=== PATIENT | male | born 1955 | race Caucasian/White ===

== ENCOUNTER → 2017-10-13 13:53 | Outpatient (CLI) | payer OTHER, SELFPAY ==
[2017-10-13 16:42] LABS: AST(SGOT) 11 U/L (15-37); Alanine Aminotransfer ALT/SGPT 22 U/L (16-61); Albumin, Serum 3.6 g/dL (3.2-5.0); Alkaline Phosphatase 106 U/L (45-117); Anion Gap 7 (5-15); BUN 16 mg/dL (7-18); BUN/Creat Ratio 13.7 RATIO (10-20); Bilirubin, Direct 0.16 mg/dL (0.00-0.30); Calcium,Total 8.7 mg/dL (8.5-10.1); Chloride 103 mmol/L (98-107); Cholesterol 124 mg/dL (200); Creatinine, Serum 1.17 mg/dL (0.70-1.30); EST Glomerular Filtration Rate 67 mL/min (>60); Est Glom Filt Rate - Afr Amer 81 mL/min (>60); Globulin 3.3 g/dL (2.2-4.2); Glucose 101 mg/dL (70-110); High Density Lipoprotein 43 mg/dL; Protein, Total 6.9 g/dL (6.4-8.2); Sodium Level 139 mmol/L (136-145); Triglycerides 93 mg/dL; Very Low Density Lipoprotein 19 mg/dL (5-40)
== END ==
PROVIDERS: Family Provider Family Medicine; PCP Family Medicine; Visit Provider Internal Medicine Cardiovascular Disease
DX: I42.9 Cardiomyopathy, unspecified (principal); I50.9 Heart failure, unspecified; I48.92 Unspecified atrial flutter; E78.5 Hyperlipidemia, unspecified
CPT/HCPCS: 36415; 80048; 80061; 80076

== ENCOUNTER 2017-11-29 15:24 | Inpatient (IN) | payer OTHER, SELFPAY ==
[2017-11-29] VITALS (8 sets, daily range): BP systolic 119–135; BP diastolic 48–58; PULSE 59–67; RESP 17–20; TEMP 37.1–37.2; O2SAT 94–99; BMI 48.4; BMI 50.0
--- NOTE | 2017-11-29 15:36 | EKG12_ITS ---
Test Reason : Blood Pressure : / mmHG Vent. Rate : 070 BPM Atrial Rate : 070 BPM P-R Int : 144 ms QRS Dur : 166 ms QT Int : 486 ms P-R-T Axes : 000 049 089 degrees QTc Int : 524 ms Sinus rhythm with Premature atrial complexes Left bundle branch block Abnormal ECG Confirmed by HEIDI ORO ([id number]), editor managing newspaper AZRA DOBBINS ([id number]) on 12/02/2017 2:32:29 PM Referred By: CHRIS Confirmed By:HEIDI ORO
--- NOTE | 2017-11-29 15:40 | RAD_ITS ---
STUDY: X-RAY CHEST REASON FOR EXAM: Male, 62 years old. Shortness of breath. TECHNIQUE: Single AP portable view of the chest. COMPARISON: Comparison is made with prior study dated September 04, 2017. FINDINGS: EKG electrodes are seen. There is evidence of infiltration in the right lower lobe. Mild increased markings are also seen in the right upper lobe superimposed on mild degree of CHF. There is no demonstrated pleural abnormality. There is mild cardiac enlargement. Normal mediastinum and asaf. Normal visualized pulmonary arteries. There is atherosclerotic calcification of the aortic arch with tortuosity. There are diffuse degenerative changes of the visualized thoracic spine. Normal visualized ribs, clavicles, and shoulders. There is no demonstrated abnormality of the visualized soft tissue structures of the upper abdomen. RAD/Chest 1 View (Portable) IMPRESSION: Fundus suggestive of a right lower lobe infiltrate superimposed on CHF. Electronically Signed: Clement Liu MD at 15:58 EDT Tel [phone], Service support ,
--- NOTE | 2017-11-29 15:41 | ED.DCSUM_ITS ---
- ER Visit Summary Date of Service: 11/29/17 Chief Complaint: Shortness of breath History of Present Illness: The patient is a 62 M with multiple medical comorbidities including cardiomyopathy, CHF, a fibrillation, COPD on home oxygen , and history of stroke who presents for shortness of breath since last night. Patient states he has been having motor oil diarrhea for 3 days and thinks he has a GI bleed. He took himself off Eliquis last night and started Plavix he had leftover of an old prescription. He has been short of breath at rest with a desaturation as low as 88% on his home oxygen. Patient endorses fatigue and weakness. Nausea but no vomiting. He does have a history of an ulcer and hiatal hernia. Physical Examination: Vital signs: afebrile, hemodynamically stable, 94% on 3 L nasal cannula General: well nourished, well developed, in no distress Skin: warm, dry, no rash, no conjunctival pallor or pallor to the palmar creases HEENT: normocephalic and atraumatic; PERRL, EOMI, moist mucous membranes Cardiovascular: regular rate and rhythm without murmurs, symmetric 2+ peripheral edema, 2+ pulses all distal extremities Respiratory: No increased work of breathing, lungs are diminished globally, no rales, rhonchi or wheezing, limited 2/2 body habitus Abdominal: Abdomen is soft, nontender with normoactive bowel sounds, no guarding or rebound, no masses, refused rectal exam MSK: Moves all extremities, no deformities, normal strength Neuro: Awake and alert, oriented ?4. No facial droop, sensation and motor function intact and symmetric Test Results: Abnormal Lab Results 11/29/17 11/29/17 11/29/17 15:49 15:49 15:49 WBC 7.8 RBC 3.65 L Hgb 10.0 L Hct 31.6 L MCV 86.6 MCH 27.4 MCHC 31.6 L RDW 14.3 RDW Differential 43.5 Plt Count 192 MPV 10.2 Immature Gran % (Auto) 0.300 Neut % (Auto) 94.1 H Lymph % (Auto) 1.9 L [place] % (Auto) 3.7 Eos % (Auto) 0.0 Baso % (Auto) 0.0 Absolute Neuts (auto) 7.4 Absolute Lymphs (auto) 0.15 L Total Counted Not Reportable Differential Comment SCANNED Platelet Estimate ADEQUATE Hypochromasia 1+ PT INR APTT Sodium 140 Potassium 3.9 Chloride 106 Carbon Dioxide 24.0 Anion Gap 10 BUN 29 H Creatinine 1.62 H Estim Creat Clear Calc 53.56 Est GFR (MDRD) Af Amer 55 L Est GFR (MDRD) Non-Af 46 L BUN/Creatinine Ratio 17.9 Glucose 151 H Calcium 8.3 L Total Bilirubin 0.70 AST 42 H ALT 39 Alkaline Phosphatase 88 Troponin I 0.44 H B-Natriuretic Peptide 188.2 H Total Protein 6.4 Albumin 3.1 L Globulin 3.3 Albumin/Globulin Ratio 0.9 Blood Type Antibody Screen 11/29/17 11/29/17 11/29/17 15:49 15:49 21:07 WBC RBC Hgb Hct MCV MCH MCHC RDW RDW Differential Plt Count MPV Immature Gran % (Auto) Neut % (Auto) Lymph % (Auto) [place] % (Auto) Eos % (Auto) Baso % (Auto) Absolute Neuts (auto) Absolute Lymphs (auto) Total Counted Differential Comment Platelet Estimate Hypochromasia PT 16.3 H INR 1.3 APTT 40.5 H Sodium Potassium Chloride Carbon Dioxide Anion Gap BUN Creatinine Estim Creat Clear Calc Est GFR (MDRD) Af Amer Est GFR (MDRD) Non-Af BUN/Creatinine Ratio Glucose Calcium Total Bilirubin AST ALT Alkaline Phosphatase Troponin I 0.39 H B-Natriuretic Peptide Total Protein Albumin Globulin Albumin/Globulin Ratio Blood Type O POSITIVE Antibody Screen NEGATIVE 11/29/17 23:03 WBC RBC Hgb Hct MCV MCH MCHC RDW RDW Differential Plt Count MPV Immature Gran % (Auto) Neut % (Auto) Lymph % (Auto) [place] % (Auto) Eos % (Auto) Baso % (Auto) Absolute Neuts (auto) Absolute Lymphs (auto) Total Counted Differential Comment Platelet Estimate Hypochromasia PT INR APTT Sodium Potassium Chloride Carbon Dioxide Anion Gap BUN Creatinine Estim Creat Clear Calc Est GFR (MDRD) Af Amer Est GFR (MDRD) Non-Af BUN/Creatinine Ratio Glucose Calcium Total Bilirubin AST ALT Alkaline Phosphatase Troponin I 0.38 H B-Natriuretic Peptide Total Protein Albumin Globulin Albumin/Globulin Ratio Blood Type Antibody Screen Emergency Department Course and Treatment: Patient presents complaining of shortness of breath with wide differential due to multiple comorbidities. He is complaining of dark tarry stool, but shows no pallor on evaluation. He refused a rectal exam and thus Hemoccult was not obtained. Patient was maintained on his home oxygen. CBC showed no leukocytosis, and hemoglobin was 10. Renal function at baseline. Troponin was elevated at 0.44, which is above patient's baseline. EKG showed a left bundle branch block negative per Sgarbossa criteria for acute coronary syndrome. Chest x-ray was consistent with a right lower lobe pneumonia as well as CHF. Patient does not meet sepsis criteria. He was started on IV antibiotics for treatment of pneumonia. He was not given fluid boluses because of his CHF. Patient shows no exam findings concerning for contribution of acute anemia at this time. Patient will be admitted for treatment of pneumonia. Discussed with Dr. Oro regarding his elevated troponin, who will consult on this patient. Patient discussed with Dr. Morel for admission to telemetry. Treatment Plan: [] Disposition: [] Impression: Pneumonia, CHF, elevated troponin This note was generated with [employer] dictation software. It may contain incorrect words, spelling, and punctuation that were not noted in review of the chart prior to signing ED Disposition - Plan for ED Patient: Disposition: Acute Care Hospital [facility] Chief Complaint: Shortness of Breath
[2017-11-29 16:06] LABS: Absolute Lymphocyte Count 0.15 X10^3/ul (0.83-4.51); Absolute Neutrophil Count 7.4 X10^3/uL (2.0-7.7); Hematocrit 31.6 % (40-54); Lymphocyte # 0.15 X10^3/ul (4.0); Lymphocyte % 1.9 % (19-41); Mean Corp Hgb Conc 31.6 g/gl (32-36); Mean Corpuscular Hgb 27.4 pg (27.0-32.0); Mean Corpuscular Volume 86.6 fL (80-94); Mean Platelet Vol. 10.2 fl (6.2-12.0); Monocyte# 0.29 X10^3/uL; Monocyte% 3.7 % (0-10); Neutrophil # 7.35 X10^3/uL (2.7-7.7); Neutrophil % 94.1 % (47-70); Platelet Count 192 K/mm3 (150-450); RBC Distribution Width CV 14.3 % (11.6-14.6); RBC Distribution Width SD 43.5 fl (35.1-43.9); Red Blood Count 3.65 M/mm3 (4.6-6.2); White Blood Count 7.8 K/mm3 (4.4-11.0)
[2017-11-29 16:07] LABS: Differential Indicated SCAN CRITERIA MET; POSITIVE COUNT NO; POSITIVE DIFFERENTIAL YES; POSITIVE MORPHOLOGY NO
[2017-11-29 16:18] LABS: International Normalized Ratio 1.3; Prothrombin Time (Protime)PT. 16.3 SECONDS (11.7-14.9)
[2017-11-29 16:19] LABS: BUN 29 mg/dL (7-18); Creatinine, Serum 1.62 mg/dL (0.70-1.30); Estimated Creatinine Clearance 53.56 ml/min; Glucose 151 mg/dL (74-106); Partial Thromboplast Time 40.5 Seconds (24.1-36.2)
[2017-11-29 16:20] LABS: ALB/GLOB Ratio 0.9 RATIO (0.9-2.4); AST(SGOT) 42 U/L (15-37); Alanine Aminotransfer ALT/SGPT 39 U/L (16-61); Albumin, Serum 3.1 g/dL (3.2-5.0); Alkaline Phosphatase 88 U/L (45-117); Anion Gap 10 (5-15); BUN/Creat Ratio 17.9 RATIO (10-20); Calcium,Total 8.3 mg/dL (8.5-10.1); Chloride 106 mmol/L (98-107); EST Glomerular Filtration Rate 46 mL/min (>60); Est Glom Filt Rate - Afr Amer 55 mL/min (>60); Globulin 3.3 g/dL (2.2-4.2); Potassium 3.9 mmol/L (3.5-5.1); Protein, Total 6.4 g/dL (6.4-8.2); Sodium Level 140 mmol/L (136-145)
[2017-11-29 16:36] LABS: Differential Comment SCANNED; Hypochromasia 1+; Platelet Estimate ADEQUATE (ADEQ)
[2017-11-29 17:10] LABS: BNP,B-Type NATRIURETIC PEPTIDE 188.2 pg/mL (0-100)
[2017-11-29] MEDS: Ceftriaxone 1 GM/50 ML BAG IV (18:22)
--- NOTE | 2017-11-29 18:28 | CON.PCM_ITS ---
Reason for Consult Date of Consultation: 11/29/17 Reason for Consultation: Shortness of breath and chest tightness. History of Present Illness: The patient is a 62 year old M with a history of paroxysmal atrial fibrillation cardiomyopathy hypertension obstructive sleep apnea probable coronary artery disease who presents the emergency room again with chest tightness and shortness of breath. He was recently seen by me in September of this year in the hospital where he was noted to be in atrial fibrillation flutter with a rapid ventricular response rate. He underwent a JODY guided cardioversion. At that time he was also noted to have mildly abnormal cardiac enzymes and he categorically refused a cardiac catheterization. He was also noted to have an ejection fraction of approximately 40%. He tells me that he has been compliant with his medications but discontinued his factor X inhibitor because he was having diarrhea and he substituted Plavix instead because he just happened to have some around. At this particular time he does not have any chest pain he is mildly short of breath and he is a mouth breather and has put his oxygen in his mouth. [] Past Medical History Allergies/Adverse Reactions: Allergies cortisone [Cortisone] Allergy (Verified 10/13/17 12:50) Itching CASHEW Adverse Reaction (Uncoded 10/13/17 12:50) Vomiting Home Medications: Ambulatory Orders Medication Instructions Recorded Losartan Potassium 50 mg PO QHS 09/12/13 Albuterol Inhaler [Ventolin Hfa] 1 - 2 puff INHALATION Q4H PRN PRN 03/17/16 Atorvastatin Calcium [Lipitor] 40 mg PO QHS #30 tab 03/20/16 Furosemide [Lasix] 40 mg PO BID@1000,1800 #60 tab 03/20/16 Ipratropium/Albuterol Sulfate 3 ml INHALATION Q4H.RT #120 03/20/16 [Duoneb] ampul.neb Apixaban [Eliquis] 5 mg PO BID #60 tab 09/08/17 amiodarone 200 mg tablet 200 mg PO QDAY #90 tab 10/13/17 aspirin 81 mg tablet,delayed 81 mg PO QDAY #90 tab 10/13/17 release diltiazem CD 180 mg 180 mg PO ONCE #90 cap 10/13/17 capsule,extended release 24 hr umeclidinium 62.5 mcg/actuation 1 inh INHALATION QDAY #30 ea 10/18/17 blister powder for inhalation Prednisone [Prednisone] See Taper 11/29/17 Past Medical History (Chronic Problems): Chronic Problems (Last Reviewed 10/13/17 @ 13:22 by Torres Oro MD) Left bundle branch block (Chronic) CKD (chronic kidney disease), stage II (Chronic) Cardiomyopathy (Chronic) History of cardioversion (Chronic ~09/07/17) Chronic respiratory failure (Chronic) Hypertension (Chronic) Scar of back (Chronic) 5 cm recurrent infected cystic lesion scar right lower medial back Former smoker (Chronic) quit 2013 COPD (chronic obstructive pulmonary disease) (Chronic) BPH (benign prostatic hypertrophy) (Chronic) HLD (hyperlipidemia) (Chronic) History of CVA (cerebrovascular accident) (Chronic) 2012 GERD (gastroesophageal reflux disease) (Chronic) Stasis dermatitis of both legs (Chronic) with hyperpigmentation ANIBAL (obstructive sleep apnea) (Chronic) Vesico-colic fistula (Chronic) Pulmonary hypertension (Chronic) Morbid obesity with BMI of 45.0-49.9, adult (Chronic) Chronic renal failure, stage 2 (mild) (Chronic) Surgical History: - - Removal of a cyst from the low back. Ulnar relocation R elbow. Psychiatric History: No pertinent psych hx - *Family History Maternal Family History: Family History (Last Reviewed 10/13/17 @ 13:22 by Torres Oro MD) Mother Cancer Brother Sudden cardiac Father Heart disease History Items: Cancer - Lung and brain cancer Paternal Family History: Family History (Last Reviewed 10/13/17 @ 13:22 by Torres Oro MD) Mother Cancer Brother Sudden cardiac Father Heart disease History Items: Heart Disease - father of a cardiomyopathy Sibling Family History: Family History (Last Reviewed 10/13/17 @ 13:22 by Torres Oro MD) Mother Cancer Brother Sudden cardiac Father Heart disease History Items: - - brother dropped at 60 drinking a beer Smoking Status: Former smoker Alcohol: None Drugs: None Review of Systems - Review of Systems General: Denies: Fever, Night Sweats, Fatigue Cardiovascular: Reports: Chest Discomfort at Rest, Shortness of Breath. Denies : Chest Discomfort, Orthopnea, PND, Peripheral Edema, Palpitations, Lightheadedness, Dizziness, Near Syncope, Syncope Respiratory: Denies: Cough, Sputum Production, Hemoptysis Gastrointestinal: Denies: Hematemesis, Hematochezia, Melena Genitourinary: Denies: Dysuria, Hematuria Skin: Denies: Rash Subjectve: Middle-aged man Objective: Vital Signs Temp Pulse Resp BP Pulse Ox 98.8 F 65 17 135/58 H 96 11/29/17 15:33 11/29/17 18:08 11/29/17 18:08 11/29/17 18:08 11/29/17 18:08 Oxygen Flow Rate (L/min) 4 Oxygen Delivery Method Nasal Cannula Weight: 376 lb 15.847 oz Body Mass Index (BMI) 48.4 Finger Stick Blood Glucose 120 General: Awake, Alert, Oriented x 3, Obese HEENT: PERRL, EOMI, Sclera Non Icteric Neck: Supple, Good ROM, No Lymph Node Enlargement Lungs: Clear to auscultation Cardiovascular: Regular Rhythm, Normal S1, Normal S2, No Murmurs, No Rubs, No Gallops Vascular: No Carotid Bruits, Normal Femoral Pulses, Normal Radial Pulses, Normal Dorsalis Pedal Pulse, Normal Posterior Tibial Pulses Abdomen: Bowel Sounds Present, Soft, Non Tender, No HSM, No Organomegaly Extremities: No Cyanosis, No Clubbing, Bilateral Edema +2 Neurological: No Focal Motor or Sensory Deficit 11/29/17 15:49: WBC 7.8, RBC 3.65 L, Hgb 10.0 L, Hct 31.6 L, MCV 86.6, MCH 27.4 , MCHC 31.6 L, RDW 14.3, RDW Differential 43.5, Plt Count 192, MPV 10.2, Immature Gran % (Auto) 0.300, Neut % (Auto) 94.1 H, Lymph % (Auto) 1.9 L, [place] % (Auto) 3.7, Eos % (Auto) 0.0, Baso % (Auto) 0.0, Absolute Neuts (auto) 7.4, Total Counted Not Reportable 11/29/17 15:49: Sodium 140, Potassium 3.9, Chloride 106, Carbon Dioxide 24.0, Anion Gap 10, BUN 29 H, Creatinine 1.62 H, Est GFR (MDRD) Af Amer 55 L, Est GFR (MDRD) Non-Af 46 L, BUN/Creatinine Ratio 17.9, Glucose 151 H, Calcium 8.3 L, Total Bilirubin 0.70, Troponin I 0.44 H 11/29/17 15:49: B-Natriuretic Peptide 188.2 H 11/29/17 15:49: PT 16.3 H, INR 1.3, APTT 40.5 H Rhythm: EKG: Sinus rhythm with a left bundle branch block pattern. ECHO: Previous echocardiogram demonstrated an ejection fraction of 40% with global hypokinesis. Assessment/Plan 1. Abnormal cardiac enzymes. He does not have a documented history of coronary artery disease but he presents with abnormal cardiac enzymes. This time it does not appear to be any reason for demand ischemia. He probably has underlying coronary artery disease but at this time he categorically refuses any cardiac catheterization. I will therefore suggest that we admit him and cycle his cardiac enzymes. Due to his possible history of GI bleed with his hemoglobin which is lower than before I will be hesitant at this time to put him on Plavix until we have a further indication of what is going on on his GI tract. 2. History of atrial flutter He is maintaining sinus rhythm at this time on the amiodarone which will be continued. He has discontinued the factor X inhibitor because he said he was bleeding and having GI issues. 3. Cardiomyopathy He does have a history of cardiomyopathy. The etiology is likely tachycardia mediated. Recommendation at this time would be to continue with his supportive therapy 4. Congestive heart failure He likely has mild congestive heart failure probably secondary to coronary disease, hypertension, cardiomyopathy. We will continue with diuresis and him and then make a decision as to whether he prefers any invasive therapy or not. Thank you for allowing me to participate in the care of your patient. Please don't hesitate to call if any issues arise
--- NOTE | 2017-11-29 18:54 | PCM.HP.STD ---
Problem List (1) Gram-negative pneumonia Status: Acute (2) NSTEMI (non-ST elevated myocardial infarction) Status: Acute (3) Acute clinical systolic heart failure Status: Chronic (4) Atrial flutter Status: Chronic (5) Cor pulmonale Status: Chronic (6) BPH (benign prostatic hypertrophy) Status: Chronic (7) CKD (chronic kidney disease), stage II Status: Chronic (8) COPD (chronic obstructive pulmonary disease) Status: Chronic Qualifiers: COPD type: COPD with acute exacerbation Qualified Code(s): J44.1 - Chronic obstructive pulmonary disease with (acute) exacerbation (9) Cardiomyopathy Status: Chronic (10) Chronic renal failure, stage 2 (mild) Status: Chronic (11) Chronic respiratory failure Status: Chronic Qualifiers: Respiratory failure complication: hypoxia Qualified Code(s): J96.11 - Chronic respiratory failure with hypoxia (12) Former smoker Status: Chronic Comment: quit 2013 (13) GERD (gastroesophageal reflux disease) Status: Chronic (14) HLD (hyperlipidemia) Status: Chronic (15) History of CVA (cerebrovascular accident) Status: Chronic Comment: 2012 (16) History of cardioversion Status: Chronic (17) Hypertension Status: Chronic (18) Left bundle branch block Status: Chronic (19) Morbid obesity with BMI of 45.0-49.9, adult Status: Chronic (20) ANIBAL (obstructive sleep apnea) Status: Chronic (21) Pulmonary hypertension Status: Chronic (22) Stasis dermatitis of both legs Status: Chronic Comment: with hyperpigmentation History of Present Illness Date of Admission: 11/29/17 Chief Complaint: Shortness of breath The patient is a 62 year old M who has chronic respiratory failures presents with a one-day history of increasing shortness of breath. Patient was having increasing dyspnea on exertion despite his oxygen. Patient stated he put his oxygen from 4-8 L and was still having dyspnea. Patient was concerned and presented to the hospital. In the emergency room patient had chest x-ray that showed right lower lobe infiltrate. Patient received Rocephin and azithromycin in the emergency room. Patient is still having shortness of breath but feeling better at this time. Patient states that the symptoms are similar when he presented to the hospital when he was found to have a tachycardia. 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 Former smoker (Chronic) quit 2013 COPD (chronic obstructive pulmonary disease) (Chronic) BPH (benign prostatic hypertrophy) (Chronic) HLD (hyperlipidemia) (Chronic) History of CVA (cerebrovascular accident) (Chronic) 2012 GERD (gastroesophageal reflux disease) (Chronic) Stasis dermatitis of both legs (Chronic) with hyperpigmentation ANIBAL (obstructive sleep apnea) (Chronic) Vesico-colic fistula (Chronic) Pulmonary hypertension (Chronic) Cor pulmonale (Chronic) Morbid obesity with BMI of 45.0-49.9, adult (Chronic) Chronic renal failure, stage 2 (mild) (Chronic) Allergies cortisone [Cortisone] Allergy (Verified 10/13/17 12:50) Itching CASHEW Adverse Reaction (Uncoded 10/13/17 12:50) Vomiting Home Medications: Ambulatory Orders Medication Instructions Recorded Losartan Potassium 50 mg PO QHS 09/12/13 Albuterol Inhaler [Ventolin Hfa] 1 - 2 puff INHALATION Q4H PRN PRN 03/17/16 Amiodarone HCl 200 mg PO DAILY 11/29/17 Amlodipine [Norvasc] 10 mg PO DAILY 11/29/17 Aspirin [Aspir-Low] 81 mg PO DAILY 11/29/17 Atorvastatin Calcium [Lipitor] 40 mg PO QHS 11/29/17 Clopidogrel Bisulfate [Plavix] 75 mg PO DAILY 11/29/17 Diltiazem HCl [Diltiazem 24Hr ER] 180 mg PO DAILY 11/29/17 Fluticasone/Salmeterol [Advair 2 puff INHALATION DAILY 11/29/17 250-50 Diskus] Furosemide [Lasix] 40 mg PO BID@1000,1800 11/29/17 Ipratropium/Albuterol Sulfate 3 ml INHALATION Q4H.RT 11/29/17 [Duoneb] Prednisone [Prednisone] See Taper DAILY 11/29/17 Umeclidinium [place] [Incruse 1 inh INHALATION QDAY 11/29/17 Ellipta] Surgical History: - - Removal of a cyst from the low back. Ulnar relocation R elbow. Psychiatric History: No pertinent psych hx Smoking Status: Former smoker Alcohol: None Drugs: None - *Family History Maternal History Items: Cancer - Lung and brain cancer Paternal History Items: Heart Disease - father of a cardiomyopathy Sibling History Items: - - brother dropped at 60 drinking a beer Review of Systems Constitutional: Denies: Chills, Fever Eyes: Denies: Blurred vision, Double vision HEENT: Denies: Head Aches, Sinus Congestion, Sinus Drainage Cardiovascular: Reports: Chest Pain - Midsternal, Edema - Chronic Respiratory: Reports: Cough, Shortness of breath upon exertion, Sputum production Gastrointestinal: Reports: Melena - History of. Denies: Abdominal Pain, Nausea, Vomiting Genitourinary: Denies: Dysuria Musculoskeletal: Denies: Joint Pain, Joint Tenderness Skin: Reports: - - Venous stasis dermatitis. Denies: Dryness Neurological: Denies: Numbness, Tingling, Focal weakness Psychiatric: Denies: Anxiety, Depression Hematologic/ Lymphatic: Denies: Easy Bruising, Easy Bleeding, Hx of blood clot VTE Information - Inpt Only VTE Present on Admission: No VTE Pharm Prophylaxis ordered?: Yes Reason prophylaxis not ordered:: Adverse Reaction to Drug Patient Problems: Active and Suspected Problems (Last Reviewed 10/13/17 @ 13:22 by Torres Oro MD) Gram-negative pneumonia (Acute) NSTEMI (non-ST elevated myocardial infarction) (Acute) - Physical Exam General: Alert, Cooperative, No apparent distress HEENT: Atraumatic, Normocephalic Neck: No Nodes, Thyroid Normal Size and Texture Lungs: Diminished, - - Crackles in the right lower lobe Cardiovascular: Regular rate, Regular Rhythm, Normal S1, Normal S2, No murmurs Abdomen: Bowel Sounds Present, Soft, Non Tender, Non-Distended, No Hepato-splenomegaly Extremities: No Calf Tenderness, Edema Skin: No rashes, No breakdown, - - Venous stasis dermatitis of lower extremities Musculoskeletal: No Tenderness to Palpation of Joints or Extremities, No Muscle Wasting Psych/Mental Status: Normal Affect, Appropriate Vital Signs Temp Pulse Resp BP Pulse Ox 37.1 C 65 17 135/58 H 96 11/29/17 15:33 11/29/17 18:08 11/29/17 18:08 11/29/17 18:08 11/29/17 18:08 Oxygen Flow Rate (L/min) 4 Oxygen Delivery Method Nasal Cannula Weight: 171 kg Body Mass Index (BMI) 48.4 Finger Stick Blood Glucose 120 Laboratory Tests Past 24 Hrs 11/29/17 11/29/17 11/29/17 15:49 15:49 15:49 WBC 7.8 RBC 3.65 L Hgb 10.0 L Hct 31.6 L MCV 86.6 MCH 27.4 MCHC 31.6 L RDW 14.3 RDW Differential 43.5 Plt Count 192 MPV 10.2 Immature Gran % (Auto) 0.300 Neut % (Auto) 94.1 H Lymph % (Auto) 1.9 L [place] % (Auto) 3.7 Eos % (Auto) 0.0 Baso % (Auto) 0.0 Absolute Neuts (auto) 7.4 Absolute Lymphs (auto) 0.15 L Total Counted Not Reportable Differential Comment SCANNED Platelet Estimate ADEQUATE Hypochromasia 1+ PT INR APTT Sodium 140 Potassium 3.9 Chloride 106 Carbon Dioxide 24.0 Anion Gap 10 BUN 29 H Creatinine 1.62 H Estim Creat Clear Calc 53.56 Est GFR (MDRD) Af Amer 55 L Est GFR (MDRD) Non-Af 46 L BUN/Creatinine Ratio 17.9 Glucose 151 H Calcium 8.3 L Total Bilirubin 0.70 AST 42 H ALT 39 Alkaline Phosphatase 88 Troponin I 0.44 H B-Natriuretic Peptide 188.2 H Total Protein 6.4 Albumin 3.1 L Globulin 3.3 Albumin/Globulin Ratio 0.9 Blood Type Antibody Screen 11/29/17 11/29/17 15:49 15:49 WBC RBC Hgb Hct MCV MCH MCHC RDW RDW Differential Plt Count MPV Immature Gran % (Auto) Neut % (Auto) Lymph % (Auto) [place] % (Auto) Eos % (Auto) Baso % (Auto) Absolute Neuts (auto) Absolute Lymphs (auto) Total Counted Differential Comment Platelet Estimate Hypochromasia PT 16.3 H INR 1.3 APTT 40.5 H Sodium Potassium Chloride Carbon Dioxide Anion Gap BUN Creatinine Estim Creat Clear Calc Est GFR (MDRD) Af Amer Est GFR (MDRD) Non-Af BUN/Creatinine Ratio Glucose Calcium Total Bilirubin AST ALT Alkaline Phosphatase Troponin I B-Natriuretic Peptide Total Protein Albumin Globulin Albumin/Globulin Ratio Blood Type O POSITIVE Antibody Screen NEGATIVE EKG reviewed and normal sinus rhythm with PACs and a left bundle branch block. Chest x-ray personally reviewed and showed a right lower lobe infiltrate with chronic changes in the bases. Assessment/Plan Active and Suspected Problems (Last Reviewed 10/13/17 @ 13:22 by Torres Oro MD) Gram-negative pneumonia (Acute) NSTEMI (non-ST elevated myocardial infarction) (Acute) 1. Suspected gram-negative pneumonia It is not been 3 months and the patient's most recent hospitalization was treated patient for HCAP with vancomycin and Zosyn Pulmonary toilet Check urinary antigens for strep, Legionella. Check influenza, check sputum culture 2. Non-STEMI Continue with medical treatment Cardiology on consultation Cardiology recommends a left heart catheterization but the patient declines at this time. 3. Suspected acute COPD exacerbation Very diminished overall, patient will be on Solu-Medrol plus bronchodilators. 4. DVT prophylaxis: Given patient's history of GI bleed patient be on SCDs for now. Code Visit Inpatient E&M: 62429 Init Hosp L2
--- NOTE | 2017-11-29 19:04 | HP.PCM_ITS ---
Problem List (1) Gram-negative pneumonia Status: Acute (2) NSTEMI (non-ST elevated myocardial infarction) Status: Acute (3) Acute clinical systolic heart failure Status: Chronic (4) Atrial flutter Status: Chronic (5) Cor pulmonale Status: Chronic (6) BPH (benign prostatic hypertrophy) Status: Chronic (7) CKD (chronic kidney disease), stage II Status: Chronic (8) COPD (chronic obstructive pulmonary disease) Status: Chronic Qualifiers: COPD type: COPD with acute exacerbation Qualified Code(s): J44.1 - Chronic obstructive pulmonary disease with (acute) exacerbation (9) Cardiomyopathy Status: Chronic (10) Chronic renal failure, stage 2 (mild) Status: Chronic (11) Chronic respiratory failure Status: Chronic Qualifiers: Respiratory failure complication: hypoxia Qualified Code(s): J96.11 - Chronic respiratory failure with hypoxia (12) Former smoker Status: Chronic Comment: quit 2013 (13) GERD (gastroesophageal reflux disease) Status: Chronic (14) HLD (hyperlipidemia) Status: Chronic (15) History of CVA (cerebrovascular accident) Status: Chronic Comment: 2012 (16) History of cardioversion Status: Chronic (17) Hypertension Status: Chronic (18) Left bundle branch block Status: Chronic (19) Morbid obesity with BMI of 45.0-49.9, adult Status: Chronic (20) ANIBAL (obstructive sleep apnea) Status: Chronic (21) Pulmonary hypertension Status: Chronic (22) Stasis dermatitis of both legs Status: Chronic Comment: with hyperpigmentation History of Present Illness Date of Admission: 11/29/17 Chief Complaint: Shortness of breath The patient is a 62 year old M who has chronic respiratory failures presents with a one-day history of increasing shortness of breath. Patient was having increasing dyspnea on exertion despite his oxygen. Patient stated he put his oxygen from 4-8 L and was still having dyspnea. Patient was concerned and presented to the hospital. In the emergency room patient had chest x-ray that showed right lower lobe infiltrate. Patient received Rocephin and azithromycin in the emergency room. Patient is still having shortness of breath but feeling better at this time. Patient states that the symptoms are similar when he presented to the hospital when he was found to have a tachycardia. 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 Former smoker (Chronic) quit 2013 COPD (chronic obstructive pulmonary disease) (Chronic) BPH (benign prostatic hypertrophy) (Chronic) HLD (hyperlipidemia) (Chronic) History of CVA (cerebrovascular accident) (Chronic) 2012 GERD (gastroesophageal reflux disease) (Chronic) Stasis dermatitis of both legs (Chronic) with hyperpigmentation ANIBAL (obstructive sleep apnea) (Chronic) Vesico-colic fistula (Chronic) Pulmonary hypertension (Chronic) Cor pulmonale (Chronic) Morbid obesity with BMI of 45.0-49.9, adult (Chronic) Chronic renal failure, stage 2 (mild) (Chronic) Allergies cortisone [Cortisone] Allergy (Verified 10/13/17 12:50) Itching CASHEW Adverse Reaction (Uncoded 10/13/17 12:50) Vomiting Home Medications: Ambulatory Orders Medication Instructions Recorded Losartan Potassium 50 mg PO QHS 09/12/13 Albuterol Inhaler [Ventolin Hfa] 1 - 2 puff INHALATION Q4H PRN PRN 03/17/16 Amiodarone HCl 200 mg PO DAILY 11/29/17 Amlodipine [Norvasc] 10 mg PO DAILY 11/29/17 Aspirin [Aspir-Low] 81 mg PO DAILY 11/29/17 Atorvastatin Calcium [Lipitor] 40 mg PO QHS 11/29/17 Clopidogrel Bisulfate [Plavix] 75 mg PO DAILY 11/29/17 Diltiazem HCl [Diltiazem 24Hr ER] 180 mg PO DAILY 11/29/17 Fluticasone/Salmeterol [Advair 2 puff INHALATION DAILY 11/29/17 250-50 Diskus] Furosemide [Lasix] 40 mg PO BID@1000,1800 11/29/17 Ipratropium/Albuterol Sulfate 3 ml INHALATION Q4H.RT 11/29/17 [Duoneb] Prednisone [Prednisone] See Taper DAILY 11/29/17 Umeclidinium [place] [Incruse 1 inh INHALATION QDAY 11/29/17 Ellipta] Surgical History: - - Removal of a cyst from the low back. Ulnar relocation R elbow. Psychiatric History: No pertinent psych hx Smoking Status: Former smoker Alcohol: None Drugs: None - *Family History Maternal History Items: Cancer - Lung and brain cancer Paternal History Items: Heart Disease - father of a cardiomyopathy Sibling History Items: - - brother dropped at 60 drinking a beer Review of Systems Constitutional: Denies: Chills, Fever Eyes: Denies: Blurred vision, Double vision HEENT: Denies: Head Aches, Sinus Congestion, Sinus Drainage Cardiovascular: Reports: Chest Pain - Midsternal, Edema - Chronic Respiratory: Reports: Cough, Shortness of breath upon exertion, Sputum production Gastrointestinal: Reports: Melena - History of. Denies: Abdominal Pain, Nausea , Vomiting Genitourinary: Denies: Dysuria Musculoskeletal: Denies: Joint Pain, Joint Tenderness Skin: Reports: - - Venous stasis dermatitis. Denies: Dryness Neurological: Denies: Numbness, Tingling, Focal weakness Psychiatric: Denies: Anxiety, Depression Hematologic/ Lymphatic: Denies: Easy Bruising, Easy Bleeding, Hx of blood clot VTE Information - Inpt Only VTE Present on Admission: No VTE Pharm Prophylaxis ordered?: Yes Reason prophylaxis not ordered:: Adverse Reaction to Drug Patient Problems: Active and Suspected Problems (Last Reviewed 10/13/17 @ 13:22 by Torres Oro MD ) Gram-negative pneumonia (Acute) NSTEMI (non-ST elevated myocardial infarction) (Acute) - Physical Exam General: Alert, Cooperative, No apparent distress HEENT: Atraumatic, Normocephalic Neck: No Nodes, Thyroid Normal Size and Texture Lungs: Diminished, - - Crackles in the right lower lobe Cardiovascular: Regular rate, Regular Rhythm, Normal S1, Normal S2, No murmurs Abdomen: Bowel Sounds Present, Soft, Non Tender, Non-Distended, No Hepato- splenomegaly Extremities: No Calf Tenderness, Edema Skin: No rashes, No breakdown, - - Venous stasis dermatitis of lower extremities Musculoskeletal: No Tenderness to Palpation of Joints or Extremities, No Muscle Wasting Psych/Mental Status: Normal Affect, Appropriate Vital Signs Temp Pulse Resp BP Pulse Ox 37.1 C 65 17 135/58 H 96 11/29/17 15:33 11/29/17 18:08 11/29/17 18:08 11/29/17 18:08 11/29/17 18:08 Oxygen Flow Rate (L/min) 4 Oxygen Delivery Method Nasal Cannula Weight: 171 kg Body Mass Index (BMI) 48.4 Finger Stick Blood Glucose 120 Laboratory Tests Past 24 Hrs 11/29/17 11/29/17 11/29/17 15:49 15:49 15:49 WBC 7.8 RBC 3.65 L Hgb 10.0 L Hct 31.6 L MCV 86.6 MCH 27.4 MCHC 31.6 L RDW 14.3 RDW Differential 43.5 Plt Count 192 MPV 10.2 Immature Gran % (Auto) 0.300 Neut % (Auto) 94.1 H Lymph % (Auto) 1.9 L [place] % (Auto) 3.7 Eos % (Auto) 0.0 Baso % (Auto) 0.0 Absolute Neuts (auto) 7.4 Absolute Lymphs (auto) 0.15 L Total Counted Not Reportable Differential Comment SCANNED Platelet Estimate ADEQUATE Hypochromasia 1+ PT INR APTT Sodium 140 Potassium 3.9 Chloride 106 Carbon Dioxide 24.0 Anion Gap 10 BUN 29 H Creatinine 1.62 H Estim Creat Clear Calc 53.56 Est GFR (MDRD) Af Amer 55 L Est GFR (MDRD) Non-Af 46 L BUN/Creatinine Ratio 17.9 Glucose 151 H Calcium 8.3 L Total Bilirubin 0.70 AST 42 H ALT 39 Alkaline Phosphatase 88 Troponin I 0.44 H B-Natriuretic Peptide 188.2 H Total Protein 6.4 Albumin 3.1 L Globulin 3.3 Albumin/Globulin Ratio 0.9 Blood Type Antibody Screen 11/29/17 11/29/17 15:49 15:49 WBC RBC Hgb Hct MCV MCH MCHC RDW RDW Differential Plt Count MPV Immature Gran % (Auto) Neut % (Auto) Lymph % (Auto) [place] % (Auto) Eos % (Auto) Baso % (Auto) Absolute Neuts (auto) Absolute Lymphs (auto) Total Counted Differential Comment Platelet Estimate Hypochromasia PT 16.3 H INR 1.3 APTT 40.5 H Sodium Potassium Chloride Carbon Dioxide Anion Gap BUN Creatinine Estim Creat Clear Calc Est GFR (MDRD) Af Amer Est GFR (MDRD) Non-Af BUN/Creatinine Ratio Glucose Calcium Total Bilirubin AST ALT Alkaline Phosphatase Troponin I B-Natriuretic Peptide Total Protein Albumin Globulin Albumin/Globulin Ratio Blood Type O POSITIVE Antibody Screen NEGATIVE EKG reviewed and normal sinus rhythm with PACs and a left bundle branch block. Chest x-ray personally reviewed and showed a right lower lobe infiltrate with chronic changes in the bases. Assessment/Plan Active and Suspected Problems (Last Reviewed 10/13/17 @ 13:22 by Torres Oro MD ) Gram-negative pneumonia (Acute) NSTEMI (non-ST elevated myocardial infarction) (Acute) 1. Suspected gram-negative pneumonia * It is not been 3 months and the patient's most recent hospitalization was treated patient for HCAP with vancomycin and Zosyn * Pulmonary toilet * Check urinary antigens for strep, Legionella. Check influenza, check sputum culture 2. Non-STEMI * Continue with medical treatment * Cardiology on consultation * Cardiology recommends a left heart catheterization but the patient declines at this time. 3. Suspected acute COPD exacerbation * Very diminished overall, patient will be on Solu-Medrol plus bronchodilators. 4. DVT prophylaxis: Given patient's history of GI bleed patient be on SCDs for now. Code Visit Inpatient E&M: 77651 Init Hosp L2
[2017-11-29] MEDS: Ipratropium/Albuterol Sulfate 3 ML AMPUL.NEB INHALATION (20:20)
[2017-11-29] MEDS: Losartan Potassium 50 MG Tablet PO (21:15)
[2017-11-29] MEDS: Atorvastatin Calcium 40 MG Tablet PO (21:15)
[2017-11-29] MEDS: guaiFENesin 600 MG Tablet 1200 MG PO (21:15)
[2017-11-29] MEDS: Piperacil/Tazobactam 3.375 GM/50 ML ML IV (21:16)
[2017-11-30] VITALS (18 sets, daily range): BP systolic 130–163; BP diastolic 64–81; PULSE 59–79; RESP 17–21; TEMP 36.8–37.3; O2SAT 94–98
[2017-11-30] MEDS: Ipratropium/Albuterol Sulfate 3 ML AMPUL.NEB INHALATION ×6 (00:45→22:52)
[2017-11-30] MEDS: Piperacil/Tazobactam 3.375 GM/50 ML ML IV ×3 (05:59→22:29)
[2017-11-30 06:02] LABS: Hematocrit 31.1 % (40-54); Hemoglobin 9.6 g/dl (13.0-16.5); Mean Corp Hgb Conc 30.9 g/gl (32-36); Mean Corpuscular Hgb 26.9 pg (27.0-32.0); Mean Corpuscular Volume 87.1 fL (80-94); Mean Platelet Vol. 10.9 fl (6.2-12.0); Platelet Count 200 K/mm3 (150-450); RBC Distribution Width CV 14.2 % (11.6-14.6); RBC Distribution Width SD 44.1 fl (35.1-43.9); Red Blood Count 3.57 M/mm3 (4.6-6.2)
[2017-11-30 06:06] LABS: Scan Indicated on CBC? Y/N NO
[2017-11-30 06:09] LABS: Anion Gap 7 (5-15); BUN 31 mg/dL (7-18); BUN/Creat Ratio 20.8 RATIO (10-20); Calcium,Total 8.6 mg/dL (8.5-10.1); Chloride 105 mmol/L (98-107); Creatinine, Serum 1.49 mg/dL (0.70-1.30); EST Glomerular Filtration Rate 50 mL/min (>60); Est Glom Filt Rate - Afr Amer 61 mL/min (>60); Estimated Creatinine Clearance 58.23 ml/min; Glucose 174 mg/dL (74-106); Potassium 4.6 mmol/L (3.5-5.1); Sodium Level 140 mmol/L (136-145)
--- NOTE | 2017-11-30 07:44 | PN.CARD_ITS ---
Subjectve: Patient seen and evaluated and appears to be stable. Has not had any chest pain. Objective: Vital Signs Temp Pulse Resp BP Pulse Ox 99.1 F 70 18 163/79 H 98 11/30/17 04:44 11/30/17 07:05 11/30/17 07:05 11/30/17 04:44 11/30/17 07:31 Oxygen Flow Rate (L/min) 4 Oxygen Delivery Method Nasal Cannula Weight: 389 lb 8.909 oz Body Mass Index (BMI) 50.0 Intake and Output for Last 24 Hours 11/28/17 11/29/17 11/30/17 23:59 23:59 23:59 Intake Total 1155 / 1155 Output Total 625 / 625 Balance 530 / 530 General: Awake, Alert, Oriented x 3, Obese HEENT: PERRL, EOMI, Sclera Non Icteric Neck: Supple, Good ROM, No Lymph Node Enlargement Lungs: Clear to auscultation Cardiovascular: Regular Rhythm, Normal S1, Normal S2, No Murmurs, No Rubs, No Gallops Vascular: No Carotid Bruits, Normal Femoral Pulses, Normal Radial Pulses, Normal Dorsalis Pedal Pulse, Normal Posterior Tibial Pulses Abdomen: Bowel Sounds Present, Soft, Non Tender, No HSM, No Organomegaly Extremities: No Cyanosis, No Clubbing, No edema Neurological: No Focal Motor or Sensory Deficit 11/29/17 21:07: Troponin I 0.39 H 11/29/17 23:03: Troponin I 0.38 H 11/30/17 05:30: WBC 7.0, RBC 3.57 L, Hgb 9.6 L, Hct 31.1 L, MCV 87.1, MCH 26.9 L , MCHC 30.9 L, RDW 14.2, RDW Differential 44.1 H, Plt Count 200, MPV 10.9 11/30/17 05:30: Sodium 140, Potassium 4.6, Chloride 105, Carbon Dioxide 28.0, Anion Gap 7, BUN 31 H, Creatinine 1.49 H, Est GFR (MDRD) Af Amer 61, Est GFR ( MDRD) Non-Af 50 L, BUN/Creatinine Ratio 20.8 H, Glucose 174 H, Calcium 8.6 Rhythm: EKG: ECHO: Stress Test: Cardiac Cath: PCI: CT Surgery: Holter monitor: EPS: PPM: CXR: Chest CT Scan: Medical Necessity - Tobacco Use Smoking Status: Former smoker Assessment/Plan 1. Abnormal cardiac enzymes. He does not have a documented history of coronary artery disease but he presents with abnormal cardiac enzymes. This time it does not appear to be any reason for demand ischemia. He probably has underlying coronary artery disease but at this time he categorically refuses any cardiac catheterization. Due to his possible history of GI bleed with his hemoglobin which is lower than before I will be hesitant at this time to put him on Plavix until we have a further indication of what is going on on his GI tract. Upon further discussion this morning. He still does not want to undergo any cardiac catheterization. We will continue him on his current medications with holding the Plavix at this time. 2. History of atrial flutter He is maintaining sinus rhythm at this time on the amiodarone which will be continued. He has discontinued the factor X inhibitor because he said he was bleeding and having GI issues. 3. Cardiomyopathy He does have a history of cardiomyopathy. The etiology is likely tachycardia mediated. Recommendation at this time would be to continue with his supportive therapy 4. Congestive heart failure He likely has mild congestive heart failure probably secondary to coronary disease, hypertension, cardiomyopathy. We will continue with diuresis and him and then make a decision as to whether he prefers any invasive therapy or not. Thank you for allowing me to participate in the care of your patient. Please don't hesitate to call if any issues arise
[2017-11-30] MEDS: dilTIAZem CD 180 MG Capsule PO (08:49)
[2017-11-30] MEDS: Aspirin E.C. 81 MG Tablet PO (08:50)
[2017-11-30] MEDS: Amiodarone 200 MG Tablet PO (08:50)
[2017-11-30] MEDS: Furosemide 40 MG Tablet PO (08:50)
[2017-11-30] MEDS: amLODIPine 10 MG Tablet PO (08:51)
[2017-11-30] MEDS: guaiFENesin 600 MG Tablet 1200 MG PO ×2 (08:51→22:30)
--- NOTE | 2017-11-30 10:36 | CASEMGMT ---
This RN CM to room to complete CM assessment and pt is currently getting breathing treatment at this time. Will attempt again later. SStsandy RN CM
[2017-11-30] MEDS: Furosemide 40 MG/4 ML Vial IV ×2 (11:24→17:44)
[2017-11-30] MEDS: Pantoprazole Sodium 40 MG Tablet PO (11:24)
--- NOTE | 2017-11-30 11:47 | PN_ITS ---
Patient Problems: Active and Suspected Problems (Last Reviewed 10/13/17 @ 13:22 by Torres Oro MD ) Gram-negative pneumonia (Acute) NSTEMI (non-ST elevated myocardial infarction) (Acute) Subjective: Patient seen and examined. Denies cough, fever, chills. Denies chest pain. Continues to complain of shortness of breath. Cardiology recommended cardiac catheterization to patient and he declined. States he is going to further think about it. Patient states his black stools are coming from his hernia. He does not want any further workup for anemia. Denies other complaints. - Physical Exam General: Alert, Oriented x3, Cooperative, No apparent distress HEENT: Atraumatic, PERRLA, EOMI, Normocephalic Neck: Supple, No JVD, Negative Carotid Bruits Lungs: Clear to auscultation, Diminished Cardiovascular: Regular rate, Regular Rhythm, Normal S1, Normal S2, No murmurs Abdomen: Bowel Sounds Present, Soft, Non Tender, Non-Distended Extremities: No clubbing, No cyanosis, No edema, Capillary Refill Less than 3 Seconds Skin: No rashes, No breakdown Musculoskeletal: No Tenderness to Palpation of Joints or Extremities Neurological: Cranial nerves II-XII grossly intact, Neuro grossly intact Psych/Mental Status: Normal Affect, Appropriate Vital Signs Temp Pulse Resp BP Pulse Ox 99.1 F 59 L 21 H 163/79 H 98 11/30/17 04:44 11/30/17 10:45 11/30/17 10:45 11/30/17 04:44 11/30/17 07:31 Oxygen Flow Rate (L/min) 4 Oxygen Delivery Method Nasal Cannula Weight: 176.7 kg Body Mass Index (BMI) 50.0 Intake and Output for Last 24 Hours 11/28/17 11/29/17 11/30/17 23:59 23:59 23:59 Intake Total 1155 / 1155 Output Total 625 / 625 Balance 530 / 530 Microbiology Past 72 Hours 11/29/17 21:10 Streptococcus pneumoniae Antigen (M - Final Urine, Clean Catch 11/29/17 21:10 Legionella Antigen - Final Urine, Clean Catch 11/29/17 20:30 Influenza Types A,B Direct FA (SIGRID) - Final Mucosa - Nasopharyngeal Laboratory Tests Past 24 Hrs 11/29/17 11/29/17 11/30/17 21:07 23:03 05:30 WBC 7.0 RBC 3.57 L Hgb 9.6 L Hct 31.1 L MCV 87.1 MCH 26.9 L MCHC 30.9 L RDW 14.2 RDW Differential 44.1 H Plt Count 200 MPV 10.9 Sodium Potassium Chloride Carbon Dioxide Anion Gap BUN Creatinine Estim Creat Clear Calc Est GFR (MDRD) Af Amer Est GFR (MDRD) Non-Af BUN/Creatinine Ratio Glucose Calcium Troponin I 0.39 H 0.38 H 11/30/17 05:30 WBC RBC Hgb Hct MCV MCH MCHC RDW RDW Differential Plt Count MPV Sodium 140 Potassium 4.6 Chloride 105 Carbon Dioxide 28.0 Anion Gap 7 BUN 31 H Creatinine 1.49 H Estim Creat Clear Calc 58.23 Est GFR (MDRD) Af Amer 61 Est GFR (MDRD) Non-Af 50 L BUN/Creatinine Ratio 20.8 H Glucose 174 H Calcium 8.6 Troponin I Medical Necessity - Tobacco Use Smoking Status: Former smoker Assessment/Plan Active and Suspected Problems (Last Reviewed 10/13/17 @ 13:22 by Torres Oro MD ) Gram-negative pneumonia (Acute) NSTEMI (non-ST elevated myocardial infarction) (Acute) The patient is a 61 year old M admitted 11/29/17 due to shortness of breath. His medical history includes chronic renal failure stage II, morbid obesity, pulmonary hypertension, vesicocolic fistula, ANIBAL, GERD, history of CVA, hyperlipidemia, BPH, COPD, hypertension, stasis dermatitis of both legs history of atrial flutter. 1. Shortness of breath/right lower lobe infiltrate- suspected secondary to mild acute on chronic systolic CHF versus possible community-acquired pneumonia- doubtful of pneumonia. Patient denies cough. Afebrile. No leukocytosis. Urine negative for strep and Legionella. Chest x-ray on admission showed right lower lobe infiltrate superimposed on CHF. BNP 188. Lungs clear, diminished on examination. Echocardiogram August 2017 showed an EF of 40%, septal motion consistent with IVCD. Continue home losartan regimen. Continue IV Zosyn empirically. 1500 fluid restriction. Strict I&O. Begin IV Lasix 40 mg twice daily. Continue supplemental oxygen to maintain O2 at or above 90%. Patient chronically wears 4 L nasal cannula continuously. Repeat chest x-ray. 2. NSTEMI-patient has history of indeterminate troponins during previous admission. No history of CAD. Cardiology consulted. Patient refusing cardiac catheterization. Hold Plavix given anemia. Patient states his father of cardiomyopathy, brother at age 60 suddenly of unknown cause. Patient has significant risk factors for CAD including morbid obesity, extensive smoking history, hyperlipidemia, hypertension and borderline diabetes. Patient is going to further consider cardiac catheterization. Will reassess tomorrow. 3. Chronic hypoxic respiratory failure-patient chronically wears 3-4 L nasal cannula continuously at home. Oxygen 98% on 4 L nasal cannula. Titrate oxygen to maintain O2 greater than 90%. 4. Acute on chronic anemia-baseline hemoglobin around 12. Hemoglobin on admission 10.0. Patient states he has black stools. Does not want any further workup for anemia. He states his bleeding is coming from his hernia. Begin PPI. Complete iron studies. Monitor CBC. 5. Chronic COPD-no acute exacerbation. Patient is on baseline oxygen. Lungs clear, diminished. Patient follows with Dr. Tello as outpatient. Continue albuterol and DuoNeb aerosols. No need for steroids at this time. 6. History of atrial flutter-status post JODY/cardioversion August 2017. No further known episodes of atrial flutter since that time. Continue amiodarone, Cardizem. Patient was previously discharged on Eliquis which she states had to be discontinued due to ulcer. 7. Chronic kidney disease stage II-stable, monitor BMP. 8. History of CVA-patient reports residual left-sided numbness/tingling. No focal deficits. Continue aspirin, statin, Plavix. 9. Hyperlipidemia-continue statin. 10. Obstructive sleep apnea-patient had a polysomnogram 05/29 in which a BIPAP was recommended. Patient is noncompliant. Patient follows with Dr. Tello as outpatient. 11. Hypertension-stable, continue current regimen. 12. Morbid obesity-BMI 50. Encouraged lifestyle and diet modifications. 13. Elevated glucose-Patient has a previous documented history of type 2 diabetes mellitus. Patient demands that he is NOT a diabetic. Hemoglobin A1c 5.8% 11/25/2016. Prior to that he did have a hemoglobin A1c of 6.7%. Will defer further workup to primary care physician. Elevated glucose possibly secondary to steroid use. DVT prophylaxis-SCDs, pharmacologic prophylaxis on hold given anemia. This patient was seen by LINWOOD Patel under the supervision of Dr. Anne.
--- NOTE | 2017-11-30 11:48 | CASEMGMT ---
Face to Face with patient for initial transition planning/care coordination assessment. [place] introduced self and role at [facility], pt voices understanding and consents to assessment at this time. Pt sitting up in bed in no distress at this time. Pt A/O x4 at this time and answers all questions appropriately at this time. Care providers, pharmacy, and demographics verified. See attached link. Pt voices no further concerns/needs at this time. Pt states has had a recent falling out with his sister and does not want any of her contact info on the chart. Pt states would like to keep HPOA, Odalys Sheffield, sis in law's number on chart but would only like it called if he is 'unresponsive'. Registration updated at this time. Advised pt to ask for CM if any further questions/concerns/needs arise, voices understanding. PLAN: [place]
--- NOTE | 2017-11-30 13:13 | CPS ---
PATIENT DOES NOT WANT A PEP DEVICE.
[2017-11-30 13:27] LABS: Ferritin 119 ng/mL (26-388); Iron 23 ug/dL (65-175); Iron Binding Capacity,Total 247 ug/dL (250-450); PERCENT IRON SATURATION 9.3 % (15.0-55.0)
[2017-11-30 13:30] LABS: Vitamin B12 520 pg/mL (211-911)
--- NOTE | 2017-11-30 14:00 | RAD_ITS ---
STUDY: X-RAY CHEST REASON FOR EXAM: Male, 62 years old. Shortness of breath/dyspnea. TECHNIQUE: Single AP portable view of the chest. COMPARISON: Comparison is made with prior study dated November 29, 2017. FINDINGS: EKG electrodes are seen. There is evidence of a stable CHF with right lower lobe infiltrate. There has been essentially no change. There is no demonstrated pleural abnormality. There is mild cardiac enlargement. Normal mediastinum and asaf. Normal visualized pulmonary arteries. Normal visualized aortic arch and descending thoracic aorta. There are diffuse degenerative changes of the visualized thoracic spine. Normal visualized ribs, clavicles, and shoulders. There is no demonstrated abnormality of the visualized soft tissue structures of the upper abdomen. RAD/Chest 1 View (Portable) IMPRESSION: Stable examination. Electronically Signed: Clement Liu MD at 14:53 EDT Tel [phone], Service support ,
[2017-11-30] MEDS: 0.9% NaCl Peripheral Flush Adult/Peds IV (17:45)
[2017-11-30] MEDS: Atorvastatin Calcium 40 MG Tablet PO (22:30)
[2017-11-30] MEDS: Losartan Potassium 50 MG Tablet PO (22:30)
[2017-12-01] VITALS (7 sets, daily range): BP systolic 139–149; BP diastolic 63; PULSE 60–74; RESP 18–22; TEMP 36.7–37.4; O2SAT 97–99
[2017-12-01] MEDS: Ipratropium/Albuterol Sulfate 3 ML AMPUL.NEB INHALATION ×2 (03:17→11:23)
[2017-12-01] MEDS: Piperacil/Tazobactam 3.375 GM/50 ML ML IV (06:28)
[2017-12-01 06:29] LABS: Hematocrit 32.3 % (40-54); Hemoglobin 10.1 g/dl (13.0-16.5); Mean Corp Hgb Conc 31.3 g/gl (32-36); Mean Corpuscular Hgb 27.2 pg (27.0-32.0); Mean Corpuscular Volume 87.1 fL (80-94); Mean Platelet Vol. 10.4 fl (6.2-12.0); Platelet Count 239 K/mm3 (150-450); RBC Distribution Width CV 14.2 % (11.6-14.6); RBC Distribution Width SD 44.2 fl (35.1-43.9); Red Blood Count 3.71 M/mm3 (4.6-6.2); White Blood Count 10.5 K/mm3 (4.4-11.0)
[2017-12-01 06:38] LABS: Scan Indicated on CBC? Y/N NO
[2017-12-01 06:58] LABS: Anion Gap 7 (5-15); BUN 32 mg/dL (7-18); BUN/Creat Ratio 20.6 RATIO (10-20); Calcium,Total 8.3 mg/dL (8.5-10.1); Chloride 108 mmol/L (98-107); Creatinine, Serum 1.55 mg/dL (0.70-1.30); EST Glomerular Filtration Rate 48 mL/min (>60); Est Glom Filt Rate - Afr Amer 58 mL/min (>60); Estimated Creatinine Clearance 55.98 ml/min; Glucose 157 mg/dL (74-106); Potassium 3.8 mmol/L (3.5-5.1); Sodium Level 143 mmol/L (136-145)
--- NOTE | 2017-12-01 07:44 | RAD_ITS ---
STUDY: X-RAY CHEST REASON FOR EXAM: Male, 62 years old. Shortness of breath. History of pneumonia. TECHNIQUE: PA and lateral views of the chest. COMPARISON: Comparison is made with prior study dated November 30, 2017. FINDINGS: EKG electrodes are seen. The CHF has improved. Residual right perihilar and right lower lobe infiltrate. Mild increased markings at the left lung base. Hyperinflation. There is mild cardiac enlargement. Normal mediastinum and asaf. Normal visualized pulmonary arteries. Normal visualized aortic arch and descending thoracic aorta. There are diffuse degenerative changes of the visualized thoracic spine. Normal visualized ribs, clavicles, and shoulders. There is no demonstrated abnormality of the visualized soft tissue structures of the upper abdomen. RAD/Chest PA and Lateral IMPRESSION: Improvement in the CHF with mild residual infiltrate in the right perihilar region. Increased markings at the left lung base. Electronically Signed: Clement Liu MD at 14:24 EDT Tel [phone], Service support ,
[2017-12-01] MEDS: Aspirin E.C. 81 MG Tablet PO (08:45)
[2017-12-01] MEDS: amLODIPine 10 MG Tablet PO (10:03)
[2017-12-01] MEDS: guaiFENesin 600 MG Tablet 1200 MG PO (10:03)
[2017-12-01] MEDS: Amiodarone 200 MG Tablet PO (10:03)
[2017-12-01] MEDS: Furosemide 40 MG/4 ML Vial IV (10:03)
[2017-12-01] MEDS: dilTIAZem CD 180 MG Capsule PO (10:03)
[2017-12-01] MEDS: 0.9% NaCl Peripheral Flush Adult/Peds IV (10:04)
[2017-12-01] MEDS: Pantoprazole Sodium 40 MG Tablet PO (10:05)
--- NOTE | 2017-12-01 12:55 | DCINST_ITS ---
- Discharge Diagnoses Current Active Problems: Current Active and Chronic Problems (Last Reviewed 10/13/17 @ 13:22 by Torres Oro MD) Gram-negative pneumonia (Acute) NSTEMI (non-ST elevated myocardial infarction) (Acute) You will use the following diet at home:: Cardiac Discharge Activity: Return to Normal Activity Call your doctor if you observe: Shortness of breath, Dizziness, Fainting spells , Chest pain, - - Continued blood in stool. Allergies/Adverse Reactions: Allergies cortisone [Cortisone] Allergy (Verified 10/13/17 12:50) Itching CASHEW Adverse Reaction (Uncoded 10/13/17 12:50) Vomiting Medications to take at Discharge Losartan Potassium 50 mg PO QHS 09/12/13 Albuterol Inhaler [Ventolin Hfa] 1 - 2 puff INHALATION Q4H PRN PRN 03/17/16 Amiodarone HCl 200 mg PO DAILY 11/29/17 Amlodipine [Norvasc] 10 mg PO DAILY 11/29/17 Aspirin [Aspir-Low] 81 mg PO DAILY 11/29/17 Atorvastatin Calcium [Lipitor] 40 mg PO QHS 11/29/17 Diltiazem HCl [Diltiazem 24Hr ER] 180 mg PO DAILY 11/29/17 Fluticasone/Salmeterol [Advair 250-50 Diskus] 2 puff INHALATION DAILY 11/29/17 Furosemide [Lasix] 40 mg PO BID@1000,1800 11/29/17 Ipratropium/Albuterol Sulfate [Duoneb] 3 ml INHALATION Q4H.RT 11/29/17 Prednisone See Taper DAILY 11/29/17 Umeclidinium [place] [Incruse Ellipta] 1 inh INHALATION QDAY 11/29/17 Levofloxacin [Levaquin] 750 mg PO DAILY #5 tab 12/01/17 Pantoprazole Sodium [Protonix] 40 mg PO DAILY #30 tab 12/01/17 The following prescriptions were given: Levofloxacin [Levaquin] 750 mg PO DAILY #5 tab Pantoprazole Sodium [Protonix] 40 mg PO DAILY #30 tab Primary Care Physician: Hernan Murray MD [Primary Care Provider] - Please follow up with your Primary Care Physician in: 1 Week Please Follow Up With: Torres Oro MD When: As scheduled Proposed Discharge Date: 12/01/17
--- NOTE | 2017-12-01 12:56 | PCM.DC.SUM ---
Discharge Date and Diagnosis Date of Admission: 11/29/17 Date of Discharge: 12/01/17 - Primary Discharge Diagnosis Active and Suspected Problems (Last Reviewed 10/13/17 @ 13:22 by Torres Oro MD) 1. Acute on chronic systolic CHF 2. Suspected community-acquired pneumonia 3. NSTEMI 4. Acute on chronic anemia-suspected GI bleed, patient refused workup to further evaluate 5. Chronic hypoxic respiratory failure 6. Chronic kidney disease stage II 7. Chronic COPD 8. History of atrial flutter status post JODY/cardioversion 9. History of CVA 10. Hyperlipidemia 11. Hypertension 12. Obstructive sleep apnea 13. 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 Former smoker (Chronic) quit 2013 COPD (chronic obstructive pulmonary disease) (Chronic) BPH (benign prostatic hypertrophy) (Chronic) HLD (hyperlipidemia) (Chronic) History of CVA (cerebrovascular accident) (Chronic) 2012 GERD (gastroesophageal reflux disease) (Chronic) Stasis dermatitis of both legs (Chronic) with hyperpigmentation ANIBAL (obstructive sleep apnea) (Chronic) Vesico-colic fistula (Chronic) Pulmonary hypertension (Chronic) Cor pulmonale (Chronic) Morbid obesity with BMI of 45.0-49.9, adult (Chronic) Chronic renal failure, stage 2 (mild) (Chronic) Hospital Course and Treatment Imaging Results: Dr. Oro Operations: None Procedures: None Summary of Care Provided: The patient is a 61 year old M admitted 11/29/17 due to shortness of breath. His medical history includes chronic renal failure stage II, morbid obesity, pulmonary hypertension, vesicocolic fistula, ANIBAL, GERD, history of CVA, hyperlipidemia, BPH, COPD, hypertension, stasis dermatitis of both legs history of atrial flutter. 1. Suspected secondary to mild acute on chronic systolic CHF and possible community-acquired pneumonia. Patient denies cough. Afebrile. No leukocytosis. Urine negative for strep and Legionella. Chest x-ray on admission showed right lower lobe infiltrate superimposed on CHF. BNP 188. Lungs clear, diminished on examination. Sputum culture unremarkable. Echocardiogram August 2017 showed an EF of 40%, septal motion consistent with IVCD. Continue home losartan regimen. Patient received IV Zosyn during admission and will be discharged on Levaquin 700 mg daily for 5 days. Patient received IV Lasix during admission and will continue home regimen of 40 mg twice daily. Repeat chest x-ray improved from admission. Patient will continue supplemental oxygen at discharge maintain O2 at or above 90%. He chronically wears 3-4 L continuously at baseline. 2. NSTEMI-patient has history of indeterminate troponins during previous admission. No history of CAD. Cardiology consulted. Patient refusing cardiac catheterization. Hold Plavix at discharge given anemia. Patient states his father of cardiomyopathy, brother at age 60 suddenly of unknown cause. Patient has significant risk factors for CAD including morbid obesity, extensive smoking history, hyperlipidemia, hypertension and borderline diabetes. Patient continues to refuse cardiac catheterization. He will address this as outpatient with Dr. Oro. He will continue to hold Plavix until further advised by primary care physician or cardiology when anemia is improved. 3. Chronic hypoxic respiratory failure-patient chronically wears 3-4 L nasal cannula continuously at home. Oxygen 99% on 4 L nasal cannula. 4. Acute on chronic anemia-suspected GI bleed. Baseline hemoglobin around 12. Hemoglobin on admission 10.0. Patient states he has black stools. Does not want any further workup for anemia. He states his bleeding is coming from his hernia. Patient will be discharged on PPI and iron supplementation. Recommend continue follow-up as outpatient. 5. Chronic COPD-no acute exacerbation. Patient is on baseline oxygen. Lungs clear, diminished. Patient follows with Dr. Tello as outpatient. Continue albuterol and DuoNeb aerosols. 6. History of atrial flutter-status post JODY/cardioversion August 2017. No further known episodes of atrial flutter since that time. Continue amiodarone, Cardizem. Patient was previously discharged on Eliquis which she states had to be discontinued due to ulcer. 7. Chronic kidney disease stage II-stable. 8. History of CVA-patient reports residual left-sided numbness/tingling. No focal deficits. Continue aspirin, statin. Plavix on hold as previously noted. 9. Hyperlipidemia-continue statin. 10. Obstructive sleep apnea-patient had a polysomnogram 05/29 in which a BIPAP was recommended. Patient is noncompliant. Patient follows with Dr. Tello as outpatient. 11. Hypertension-stable, continue current regimen. 12. Morbid obesity-BMI 50. Encouraged lifestyle and diet modifications. General: Alert, Oriented x3, Cooperative, No apparent distress HEENT: Atraumatic, PERRLA, EOMI, Normocephalic Neck: Supple, No JVD, Negative Carotid Bruits Lungs: Clear to auscultation, Diminished Cardiovascular: Regular rate, Regular Rhythm, Normal S1, Normal S2, No murmurs Abdomen: Bowel Sounds Present, Soft, Non Tender, Non-Distended Extremities: No clubbing, No cyanosis, No edema, Capillary Refill Less than 3 Seconds Skin: No rashes, No breakdown Musculoskeletal: No Tenderness to Palpation of Joints or Extremities Neurological: Cranial nerves II-XII grossly intact, Neuro grossly intact Psych/Mental Status: Normal Affect, Appropriate Patient seen and examined prior to discharge. Physical assessment as noted above. Patient is stable for discharge home with recommendations as noted above. Again, patient refused further workup for anemia/GI bleed as well as cardiac catheterization. This patient was seen by LINWOOD Patel under the supervision of Dr. Anne. Discharge Diet: Low fat/ Low Cholesterol Discharge Activity: Return to Normal Activity Call your doctor if you observe: Shortness of breath, Dizziness, Fainting spells, Chest pain, - - Continued blood in stool. Home Medications: Medications to take at Discharge Losartan Potassium 50 mg PO QHS 09/12/13 Albuterol Inhaler [Ventolin Hfa] 1 - 2 puff INHALATION Q4H PRN PRN 03/17/16 Amiodarone HCl 200 mg PO DAILY 11/29/17 Amlodipine [Norvasc] 10 mg PO DAILY 11/29/17 Aspirin [Aspir-Low] 81 mg PO DAILY 11/29/17 Atorvastatin Calcium [Lipitor] 40 mg PO QHS 11/29/17 Diltiazem HCl [Diltiazem 24Hr ER] 180 mg PO DAILY 11/29/17 Fluticasone/Salmeterol [Advair 250-50 Diskus] 2 puff INHALATION DAILY 11/29/17 Furosemide [Lasix] 40 mg PO BID@1000,1800 11/29/17 Ipratropium/Albuterol Sulfate [Duoneb] 3 ml INHALATION Q4H.RT 11/29/17 Prednisone See Taper DAILY 11/29/17 Umeclidinium [place] [Incruse Ellipta] 1 inh INHALATION QDAY 11/29/17 Ferrous Sulfate 325 mg PO BIDCM #60 tab 12/01/17 Levofloxacin [Levaquin] 750 mg PO DAILY #5 tab 12/01/17 Pantoprazole Sodium [Protonix] 40 mg PO DAILY #30 tab 12/01/17 Following Prescrptions Were Given to Patient: Levofloxacin [Levaquin] 750 mg PO DAILY #5 tab Pantoprazole Sodium [Protonix] 40 mg PO DAILY #30 tab Ferrous Sulfate 325 mg PO BIDCM #60 tab Primary Care Physician: Hernan Murray MD [Primary Care Provider] - Please follow up with your Primary Care Physician in: 1 Week Please Follow Up With: Torres Oro MD When: As scheduled Disposition: Home Minutes spent on discharge:: 35 Patient Condition:: Stable Medical Necessity - Tobacco Use Smoking Status: Former smoker Meaningful Use Info Meaningful Use Diagnoses (Choose all that apply): CHF - CHF MICHI/ARB ordered at discharge?: Yes Documented LVEF (%): 40
--- NOTE | 2017-12-01 14:34 | CASEMGMT ---
Pt to be discharged home and needs an oxygen tank to get home. Call to Lala at [facility] and she states that they will bring a tank over for pt to go home on at this time. Rachael FISHMAN updated at this time, voices understanding. Lexa FISHMAN CM
== END 2017-12-01 15:23 | disposition home or self-care (01) | DRG 280 ==
LOC: ED 16:27 → PCU 19:11
PROVIDERS: Nurse Practitioner Family; Emergency Provider Emergency Medicine; Family Provider Family Medicine; PCP Family Medicine; Visit Provider Internal Medicine
DX: I13.0 Hypertensive heart and chronic kidney disease with heart failure and stage 1 through stage 4 chronic kidney disease, or unspecified chronic kidney disease (principal); I21.4 Non-ST elevation (NSTEMI) myocardial infarction; I50.23 Acute on chronic systolic (congestive) heart failure; J18.9 Pneumonia, unspecified organism; J96.11 Chronic respiratory failure with hypoxia; I27.20 Pulmonary hypertension, unspecified; I42.9 Cardiomyopathy, unspecified; Z68.43 Body mass index [BMI] 50.0-59.9, adult; J44.0 Chronic obstructive pulmonary disease with (acute) lower respiratory infection; K92.2 Gastrointestinal hemorrhage, unspecified; E66.01 Morbid (severe) obesity due to excess calories; I27.81 Cor pulmonale (chronic); N18.2 Chronic kidney disease, stage 2 (mild); D64.9 Anemia, unspecified; G47.33 Obstructive sleep apnea (adult) (pediatric); E78.5 Hyperlipidemia, unspecified; K21.9 Gastro-esophageal reflux disease without esophagitis; N40.0 Benign prostatic hyperplasia without lower urinary tract symptoms; Z87.891 Personal history of nicotine dependence; I69.398 Other sequelae of cerebral infarction; R20.2 Paresthesia of skin; R20.0 Anesthesia of skin; I87.2 Venous insufficiency (chronic) (peripheral); I44.7 Left bundle-branch block, unspecified; R73.03 Prediabetes; Z99.81 Dependence on supplemental oxygen
CPT/HCPCS: 36415; 71045; 71046; 80048; 80053; 82607; 82728; 82746; 83540; 83550; 83880; 84484; 85025; 85027; 85610; 85730; 86850; 86900; 87070; 87205; 87449; 87804; 93005; 94640; 97802; 99285; J7030; J7040; A4216; J1940

== ENCOUNTER → 2018-02-10 15:57 | Outpatient (CLI) | payer OTHER, SELFPAY ==
[2018-02-10 17:15] LABS: Absolute Lymphocyte Count 0.81 X10^3/ul (0.83-4.51); Absolute Neutrophil Count 9.3 X10^3/uL (2.0-7.7); Basophil# 0.02 X10^3/uL; Basophil% 0.2 % (0-1); Eosinophil# 0.11 X10^3/uL; Hemoglobin 10.8 g/dl (13.0-16.5); Lymphocyte # 0.81 X10^3/ul (4.0); Lymphocyte % 7.7 % (19-41); Mean Corpuscular Hgb 25.9 pg (27.0-32.0); Mean Corpuscular Volume 86.3 fL (80-94); Mean Platelet Vol. 9.8 fl (6.2-12.0); Monocyte# 0.23 X10^3/uL; Monocyte% 2.2 % (0-10); Neutrophil # 9.31 X10^3/uL (2.7-7.7); Neutrophil % 88.7 % (47-70); Platelet Count 231 K/mm3 (150-450); RBC Distribution Width CV 16.3 % (11.6-14.6); RBC Distribution Width SD 51.8 fl (35.1-43.9); Red Blood Count 4.17 M/mm3 (4.6-6.2); White Blood Count 10.5 K/mm3 (4.4-11.0)
[2018-02-10 17:27] LABS: POSITIVE COUNT NO; POSITIVE DIFFERENTIAL NO; POSITIVE MORPHOLOGY NO
[2018-02-10 17:37] LABS: ALB/GLOB Ratio 1.2 RATIO (0.9-2.4); AST(SGOT) 13 U/L (15-37); Alanine Aminotransfer ALT/SGPT 17 U/L (16-61); Albumin, Serum 3.6 g/dL (3.2-5.0); Alkaline Phosphatase 84 U/L (45-117); Anion Gap 9 (5-15); BUN 19 mg/dL (7-18); BUN/Creat Ratio 13.9 RATIO (10-20); Calcium,Total 8.6 mg/dL (8.5-10.1); Chloride 106 mmol/L (98-107); Cholesterol 114 mg/dL (200); Creatinine, Serum 1.37 mg/dL (0.70-1.30); EST Glomerular Filtration Rate 56 mL/min (>60); Est Glom Filt Rate - Afr Amer 67 mL/min (>60); Glucose 111 mg/dL (74-106); High Density Lipoprotein 42 mg/dL; Potassium 3.9 mmol/L (3.5-5.1); Protein, Total 6.6 g/dL (6.4-8.2); Sodium Level 144 mmol/L (136-145); Triglycerides 76 mg/dL; Very Low Density Lipoprotein 15 mg/dL (5-40)
== END ==
PROVIDERS: Family Provider Family Medicine; PCP Family Medicine; Visit Provider Physician Assistant Medical
DX: I42.9 Cardiomyopathy, unspecified (principal); I10 Essential (primary) hypertension; E78.5 Hyperlipidemia, unspecified
CPT/HCPCS: 36415; 80053; 80061; 85025

== ENCOUNTER → 2018-03-28 15:38 | Outpatient (CLI) | payer OTHER, SELFPAY ==
[2018-03-28 18:05] LABS: Absolute Lymphocyte Count 0.95 X10^3/ul (0.83-4.51); Absolute Neutrophil Count 5.9 X10^3/uL (2.0-7.7); Basophil# 0.02 X10^3/uL; Basophil% 0.3 % (0-1); Eosinophil# 0.26 X10^3/uL; Eosinophils% 3.3 % (0-5); Hematocrit 36.6 % (40-54); Hemoglobin 11.2 g/dl (13.0-16.5); Lymphocyte # 0.95 X10^3/ul (4.0); Lymphocyte % 11.9 % (19-41); Mean Corp Hgb Conc 30.6 g/gl (32-36); Mean Corpuscular Hgb 27.6 pg (27.0-32.0); Mean Corpuscular Volume 90.1 fL (80-94); Monocyte# 0.78 X10^3/uL; Monocyte% 9.8 % (0-10); Neutrophil # 5.91 X10^3/uL (2.7-7.7); Neutrophil % 74.2 % (47-70); Platelet Count 225 K/mm3 (150-450); RBC Distribution Width SD 52.2 fl (35.1-43.9); Red Blood Count 4.06 M/mm3 (4.6-6.2)
[2018-03-28 18:08] LABS: POSITIVE COUNT NO; POSITIVE DIFFERENTIAL NO; POSITIVE MORPHOLOGY NO
[2018-03-28 18:14] LABS: AST(SGOT) 15 U/L (15-37); Alanine Aminotransfer ALT/SGPT 25 U/L (16-61); Albumin, Serum 3.7 g/dL (3.2-5.0); Alkaline Phosphatase 82 U/L (45-117); Anion Gap 9 (5-15); BUN 19 mg/dL (7-18); BUN/Creat Ratio 14.2 RATIO (10-20); Bilirubin, Direct 0.21 mg/dL (0.00-0.30); Calcium,Total 8.8 mg/dL (8.5-10.1); Chloride 106 mmol/L (98-107); Cholesterol 132 mg/dL (200); Creatinine, Serum 1.34 mg/dL (0.70-1.30); EST Glomerular Filtration Rate 57 mL/min (>60); Est Glom Filt Rate - Afr Amer 69 mL/min (>60); Ferritin 74 ng/mL (26-388); Globulin 3.1 g/dL (2.2-4.2); Glucose 92 mg/dL (74-106); High Density Lipoprotein 52 mg/dL; Iron 55 ug/dL (65-175); Potassium 3.7 mmol/L (3.5-5.1); Protein, Total 6.8 g/dL (6.4-8.2); Sodium Level 145 mmol/L (136-145); T4 Free Direct 1.49 ng/dL (0.76-1.46); Thyroid Stim Hormone (TSH) 1.66 uIU/mL (0.358-3.74); Triglycerides 85 mg/dL; Very Low Density Lipoprotein 17 mg/dL (5-40)
== END ==
PROVIDERS: Internal Medicine Cardiovascular Disease; Family Provider Family Medicine; PCP Family Medicine; Visit Provider Family Medicine
DX: I48.92 Unspecified atrial flutter (principal); I10 Essential (primary) hypertension; D64.9 Anemia, unspecified
CPT/HCPCS: 36415; 80048; 80061; 80076; 82728; 83540; 84439; 84443; 85025

== ENCOUNTER 2018-03-30 14:10 | Emergency (ER) | payer OTHER, SELFPAY ==
[2018-03-30] VITALS (11 sets, daily range): BP systolic 124–153; BP diastolic 65–100; PULSE 60–120; RESP 16–30; TEMP 37; O2SAT 94–97; BMI 47.9
--- NOTE | 2018-03-30 14:31 | EKG12_ITS ---
Test Reason : REPEAT Blood Pressure : / mmHG Vent. Rate : 115 BPM Atrial Rate : 117 BPM P-R Int : 168 ms QRS Dur : 164 ms QT Int : 388 ms P-R-T Axes : 091 080 209 degrees QTc Int : 536 ms Atrial flutter with 2:1 block Left bundle branch block Abnormal ECG Confirmed by TENA HERRERA, SANTHOSH ([id number]), fan mail editor AZRA DOBBINS ([id number]) on 04/01/2018 1:06:03 PM Referred By: RENEE Confirmed By:SANTHOSH MADSEN MD
--- NOTE | 2018-03-30 14:37 | RAD_ITS ---
STUDY: X-RAY CHEST REASON FOR EXAM: Male, 62 years old. Dyspnea and shortness of breath. TECHNIQUE: Single AP portable view of the chest. COMPARISON: Comparison is made with prior study of December 01, 2017. FINDINGS: EKG electrodes are seen. Is evidence of vascular congestion and mild CHF. There is no demonstrated pleural abnormality. There is moderate cardiac enlargement. Normal mediastinum and asaf. Normal visualized pulmonary arteries. Normal visualized aortic arch and descending thoracic aorta. There are diffuse degenerative changes of the visualized thoracic spine. Degenerative changes of the right acromioclavicular joint. There is no demonstrated abnormality of the visualized soft tissue structures of the upper abdomen. RAD/Chest 1 View (Portable) IMPRESSION: Cardiomegaly. Thoracic congestion and mild CHF. Electronically Signed: Clement Liu MD at 15:11 EDT Tel [phone], Service support ,
[2018-03-30] MEDS: 0.9% Normal Saline 1,000 ML 150 ML IV (14:46)
[2018-03-30] MEDS: dilTIAZem 25 MG/5 ML Vial 20 MG IV BOLUS (14:46)
[2018-03-30 14:49] LABS: Absolute Lymphocyte Count 0.79 X10^3/ul (0.83-4.51); Absolute Neutrophil Count 7.7 X10^3/uL (2.0-7.7); Basophil# 0.04 X10^3/uL; Basophil% 0.4 % (0-1); Eosinophil# 0.21 X10^3/uL; Eosinophils% 2.2 % (0-5); Hematocrit 38.6 % (40-54); Lymphocyte # 0.79 X10^3/ul (4.0); Lymphocyte % 8.1 % (19-41); Mean Corp Hgb Conc 31.1 g/gl (32-36); Mean Corpuscular Hgb 27.6 pg (27.0-32.0); Mean Corpuscular Volume 88.9 fL (80-94); Monocyte# 0.94 X10^3/uL; Monocyte% 9.6 % (0-10); Neutrophil # 7.74 X10^3/uL (2.7-7.7); Neutrophil % 79.4 % (47-70); Platelet Count 249 K/mm3 (150-450); RBC Distribution Width SD 51.6 fl (35.1-43.9); Red Blood Count 4.34 M/mm3 (4.6-6.2); White Blood Count 9.8 K/mm3 (4.4-11.0)
[2018-03-30 14:50] LABS: POSITIVE COUNT NO; POSITIVE DIFFERENTIAL NO; POSITIVE MORPHOLOGY NO
[2018-03-30 15:03] LABS: Anion Gap 6 (5-15); BUN 24 mg/dL (7-18); BUN/Creat Ratio 17.6 RATIO (10-20); Calcium,Total 8.8 mg/dL (8.5-10.1); Chloride 109 mmol/L (98-107); Creatinine, Serum 1.36 mg/dL (0.70-1.30); EST Glomerular Filtration Rate 56 mL/min (>60); Est Glom Filt Rate - Afr Amer 68 mL/min (>60); Glucose 123 mg/dL (74-106); Sodium Level 146 mmol/L (136-145)
[2018-03-30] MEDS: dilTIAZem 25 MG/5 ML Vial IV BOLUS (15:07)
[2018-03-30 15:17] LABS: BNP,B-Type NATRIURETIC PEPTIDE 350.6 pg/mL (0-100)
--- NOTE | 2018-03-30 15:24 | EKG12_ITS ---
Test Reason : POST CARDIOVERSION Blood Pressure : / mmHG Vent. Rate : 059 BPM Atrial Rate : 059 BPM P-R Int : 172 ms QRS Dur : 172 ms QT Int : 516 ms P-R-T Axes : -05 082 110 degrees QTc Int : 510 ms Sinus bradycardia with Fusion complexes Left bundle branch block Abnormal ECG Confirmed by TENA HERRERA, SANTHOSH ([id number]), editor & co founder AZRA DOBBINS ([id number]) on 04/01/2018 1:06:22 PM Referred By: RENEE Confirmed By:SANTHOSH MADSEN MD
[2018-03-30] MEDS: Furosemide 40 MG/4 ML Vial IV (15:46)
--- NOTE | 2018-03-30 16:12 | ED.VISSUMM ---
- ER Visit Summary Date of Service: 03/30/18 Chief Complaint: Shortness of breath History of Present Illness: The patient is a [address] Oro, Dr. Hernan Murray, and Dr. Tello. He reports his shortness of breath that began yesterday. It is severe with exertion or lying flat. It is mild at rest. He denies any chest pain. However, he reports that his heart rate is usually 55-60 and yesterday at home it was 120. States that he put a pulse ox on and at that time his pulse ox was 80% on his 4 L nasal cannula which is what he typically wears. Patient denies any fever, chills, or cough. Reports that he has chronic ankle swelling which actually improved from his baseline. Physical Examination: Vitals: 98.6, 134/74, 120, 30, 95% on 4 L nasal cannula which is his home O2. General: Well-nourished and well-developed. Head: Normocephalic atraumatic. Neck: Supple, no lymphadenopathy. No JVD. Nontender. Cardiovascular: Tachycardic irregular rhythm. No murmurs. Respiratory: No respiratory distress. Clear to auscultation bilaterally. Breath sounds are distant. Abdominal: Soft, nontender, nondistended, normal bowel sounds. No guarding, rebound, or peritoneal signs. Back: Nontender. Extremities: Nontender, 3+ pitting edema of his lower extremities bilaterally. Skin: Normal color, no rash. Neurologic: Alert and oriented ?3. Cranial nerves II through XII are intact. Normal strength and sensation. Psych: Normal affect. Test Results: EKG is atrial flutter at 119 with a left bundle branch block. This is essentially unchanged from September 05, 2017. Repeat EKG is sinus bradycardia at 59 with a left bundle branch block. Chest x-ray shows cardiomegaly, congestion, mild CHF. CBC is marked for an H&H 12.0 38.6, 7 neutrophils 79, and lymphocytes of 8. Chem-7 is more for sodium 146, chloride 109, BUN 24, creatinine 1.36, glucose 123. Troponin is 0.016. PT GARAGE DOOR HANGER is 350.6. It is been 188-189 since August of last year. Emergency Department Course and Treatment: Patient had an IV placed. He was given a dose of Lasix IV. He was given 20 mill grams of Cardizem IV with no change in his rate. He was then given 25 mg of Cardizem IV with no change in his rate. Patient was discussed with his fine sander, Dr. Oro, he reports that his atrial flutter is resistant to medications and asked that he be cardioverted. The patient was given a dose of Lovenox subcutaneously and a dose of Eliquis p.o. He had procedural sedation undertaken with propofol. Synchronized cardioversion was attempted with 200 J without success. It was then attempted with 200 J a second time and he converted into sinus rhythm and has remained in sinus rhythm since then. Treatment Plan: Patient will be discharged on amiodarone 200 mg p.o. twice daily and Eliquis. He is instructed to follow-up with the nurse practitioner for Dr. Oro Wednesday at 1:00. Return to the emergency department for any worsening symptoms. Disposition: To home in improved and stable condition. Impression: 1. Atrial flutter with RVR. 2. CHF. 3. Procedural sedation. 4. Electrical cardioversion. 5. Critical care time 30 minutes. This note was generated with [employer] dictation software. It may contain incorrect words, spelling, and punctuation that were not noted in review of the chart prior to signing ED Disposition - Plan for ED Patient: Chief Complaint: Shortness of Breath Instructions: ED Paroxysmal Atrial Flutter Prescriptions: Amiodarone HCl 200 mg PO BID #60 tablet Apixaban [Eliquis] 5 mg PO BID #60 tablet Referrals: Torres Oro MD [STAFF PHYSICIAN] - 04/04/18 1:00 pm
--- NOTE | 2018-03-30 16:16 | ED.DCSUM_ITS ---
- ER Visit Summary Date of Service: 03/30/18 Chief Complaint: Shortness of breath History of Present Illness: The patient is a [address] Oro, Dr. Hernan Murray, and Dr. Tello. He reports his shortness of breath that began yesterday. It is severe with exertion or lying flat. It is mild at rest. He denies any chest pain. However, he reports that his heart rate is usually 55- 60 and yesterday at home it was 120. States that he put a pulse ox on and at that time his pulse ox was 80% on his 4 L nasal cannula which is what he typically wears. Patient denies any fever, chills, or cough. Reports that he has chronic ankle swelling which actually improved from his baseline. Physical Examination: Vitals: 98.6, 134/74, 120, 30, 95% on 4 L nasal cannula which is his home O2. General: Well-nourished and well-developed. Head: Normocephalic atraumatic. Neck: Supple, no lymphadenopathy. No JVD. Nontender. Cardiovascular: Tachycardic irregular rhythm. No murmurs. Respiratory: No respiratory distress. Clear to auscultation bilaterally. Breath sounds are distant. Abdominal: Soft, nontender, nondistended, normal bowel sounds. No guarding, rebound, or peritoneal signs. Back: Nontender. Extremities: Nontender, 3+ pitting edema of his lower extremities bilaterally. Skin: Normal color, no rash. Neurologic: Alert and oriented ?3. Cranial nerves II through XII are intact. Normal strength and sensation. Psych: Normal affect. Test Results: EKG is atrial flutter at 119 with a left bundle branch block. This is essentially unchanged from September 05, 2017. Repeat EKG is sinus bradycardia at 59 with a left bundle branch block. Chest x-ray shows cardiomegaly, congestion, mild CHF. CBC is marked for an H&H 12.0 38.6, 7 neutrophils 79, and lymphocytes of 8. Chem-7 is more for sodium 146, chloride 109, BUN 24, creatinine 1.36, glucose 123. Troponin is 0.016. PT EXPERIMENTAL PREFLIGHT MECHANIC is 350.6. It is been 188-189 since August of last year. Emergency Department Course and Treatment: Patient had an IV placed. He was given a dose of Lasix IV. He was given 20 mill grams of Cardizem IV with no change in his rate. He was then given 25 mg of Cardizem IV with no change in his rate. Patient was discussed with his shotblast operator, Dr. Oro, he reports that his atrial flutter is resistant to medications and asked that he be cardioverted. The patient was given a dose of Lovenox subcutaneously and a dose of Eliquis p.o. He had procedural sedation undertaken with propofol. Synchronized cardioversion was attempted with 200 J without success. It was then attempted with 200 J a second time and he converted into sinus rhythm and has remained in sinus rhythm since then. Treatment Plan: Patient will be discharged on amiodarone 200 mg p.o. twice daily and Eliquis. He is instructed to follow-up with the nurse practitioner for Dr. Oro Wednesday at 1:00. Return to the emergency department for any worsening symptoms. Disposition: To home in improved and stable condition. Impression: 1. Atrial flutter with RVR. 2. CHF. 3. Procedural sedation. 4. Electrical cardioversion. 5. Critical care time 30 minutes. This note was generated with [employer] dictation software. It may contain incorrect words, spelling, and punctuation that were not noted in review of the chart prior to signing ED Disposition - Plan for ED Patient: Chief Complaint: Shortness of Breath Instructions: ED Paroxysmal Atrial Flutter Prescriptions: Amiodarone HCl 200 mg PO BID #60 tablet Apixaban [Eliquis] 5 mg PO BID #60 tablet Referrals: Torres Oro MD [STAFF PHYSICIAN] - 04/04/18 1:00 pm
[2018-03-30] MEDS: Enoxaparin 120 MG/0.8 ML Syringe SC (16:20)
[2018-03-30] MEDS: Propofol 200 MG/20 ML Vial IV BOLUS (16:31)
--- NOTE | 2018-03-30 16:44 | EKG12_ITS ---
Test Reason : SOB Blood Pressure : / mmHG Vent. Rate : 119 BPM Atrial Rate : 119 BPM P-R Int : 100 ms QRS Dur : 178 ms QT Int : 376 ms P-R-T Axes : 088 049 158 degrees QTc Int : 528 ms Atrial flutter Left bundle branch block Abnormal ECG Confirmed by TENA HERRERA, SANTHOSH ([id number]), editorial cartoonist AZRA DOBBINS ([id number]) on 04/01/2018 1:06:49 PM Referred By: RENEE Confirmed By:SANTHOSH MADSEN MD
[2018-03-30] MEDS: APIXABAN 5 MG TABLET PO (16:46)
--- NOTE | 2018-03-30 17:33 | ED.RN ---
LAB CALLED POTASSIUM OF 6.0 AWARE
--- NOTE | 2018-03-30 17:35 | ED.RN ---
Addendum entered by Jane Beasley 03/30/18 17:37: Original Note: LAB CALLED POTASSIUM OF 6.0.DR HANSEN
--- NOTE | 2018-03-31 16:20 | CM.ED ---
ED CALLBACK: Attempted to contact patient for follow-up call. Phone number listed is not a working number. Recommend discussing Palliative Care referral at next encounter with patient.
== END 2018-03-30 17:56 | disposition home or self-care (01) ==
LOC: ED 14:31
PROVIDERS: Emergency Provider Emergency Medicine; Family Provider Family Medicine; PCP Family Medicine
DX: I48.92 Unspecified atrial flutter (principal); I50.9 Heart failure, unspecified; I44.7 Left bundle-branch block, unspecified; R00.1 Bradycardia, unspecified; I10 Essential (primary) hypertension; J44.9 Chronic obstructive pulmonary disease, unspecified; E78.00 Pure hypercholesterolemia, unspecified; Z87.891 Personal history of nicotine dependence; Z86.73 Personal history of transient ischemic attack (TIA), and cerebral infarction without residual deficits
CPT/HCPCS: 71045; 80048; 83880; 84484; 85025; 93005; 99285; J7030; A4216; J1940

== ENCOUNTER 2018-04-09 03:40 | Inpatient (IN) | payer OTHER, SELFPAY ==
[2018-04-09] VITALS (49 sets, daily range): BP systolic 98–197; BP diastolic 52–99; PULSE 47–97; RESP 14–30; TEMP 35.9–38.5; O2SAT 76–98; BMI 53.2; BMI 49.2; BMI 53.3
[2018-04-09] MEDS: Etomidate 20 MG/10 ML Vial IV (03:45)
--- NOTE | 2018-04-09 03:52 | EKG12_ITS ---
Test Reason : UNRESPONSIVE Blood Pressure : / mmHG Vent. Rate : 097 BPM Atrial Rate : 097 BPM P-R Int : 168 ms QRS Dur : 164 ms QT Int : 418 ms P-R-T Axes : 259 083 081 degrees QTc Int : 530 ms Unusual P axis, possible ectopic atrial rhythm Left bundle branch block Abnormal ECG Confirmed by JOIE HERRERA, FLASH ([id number]), sound editor AZRA DOBBINS ([id number]) on 04/12/2018 2:37:59 PM Referred By: NEHEMIAH Confirmed By:FLASH SALTER MD
--- NOTE | 2018-04-09 03:53 | CT_ITS ---
STUDY: CT BRAIN WITHOUT CONTRAST REASON FOR EXAM: Male, 62 years old. Respiratory arrest RADIATION DOSAGE (If Supplied By Facility): CTDIvol = ( 44.99 ) mGy, DLP = ( 897.35 ) mGycm TECHNIQUE: Transaxial CT imaging of the brain was performed without administration of intravenous contrast material. Multiplanar coronal and sagittal images were reformatted. Limited head positioning. Individualized dose optimization techniques were used for this CT. COMPARISON: None. FINDINGS: Normal soft tissue structures. Normal calvarium. Oral endotracheal and enteric catheter noted. Normal size ventricles and extra-axial spaces for the patient's age. There are areas of decreased attenuation within the white matter tracts of the supratentorial brain, consistent with microvascular disease changes. Normal basal ganglia and thalami. Normal brainstem. Normal cerebellum. There is no intracranial hemorrhage. There are no findings of an acute ischemic infarction. Normal visualized paranasal sinuses. The bilateral mastoid air cells are clear. Intracranial arteriosclerosis of the carotid and vertebral arteries. CT/Brain/Head without Contrast IMPRESSION: Chronic involutional changes of the brain. There is no acute intracranial pathology. Electronically Signed: Porsche Jacinto MD at 6:45 EDT , Service support ,
--- NOTE | 2018-04-09 03:55 | ED.RN ---
OG PLACED BY ELVI Brown RN
--- NOTE | 2018-04-09 03:56 | ED.RN ---
SOFT WRIST RESTRAINTS PLACED
[2018-04-09] MEDS: Furosemide 100 MG/10 ML Vial 80 MG IV (04:04)
[2018-04-09] MEDS: Propofol 10MG/Ml 1,000 MG/100 ML Bottle 5.343 MG CONT INF ×6 (04:05→21:24)
--- NOTE | 2018-04-09 04:08 | ED.RN ---
PT MOVING LEGS AND ARMS
--- NOTE | 2018-04-09 04:09 | ED.RN ---
INLINE SUCTION HOOKED UP AND COMPLETED BY RESPIRATORY THERAPY
[2018-04-09 04:17] LABS: Absolute Neutrophil Count 16.9 X10^3/uL (2.0-7.7); Basophil# 0.12 X10^3/uL; Basophil% 0.5 % (0-1); Eosinophil# 0.66 X10^3/uL; Eosinophils% 2.8 % (0-5); Hematocrit 43.6 % (40-54); Hemoglobin 13.2 g/dl (13.0-16.5); Lymphocyte % 14.9 % (19-41); Mean Corp Hgb Conc 30.3 g/gl (32-36); Mean Corpuscular Volume 92.4 fL (80-94); Mean Platelet Vol. 10.1 fl (6.2-12.0); Monocyte# 1.99 X10^3/uL; Monocyte% 8.5 % (0-10); Neutrophil # 16.89 X10^3/uL (2.7-7.7); Neutrophil % 71.9 % (47-70); Platelet Count 415 K/mm3 (150-450); RBC Distribution Width CV 16.1 % (11.6-14.6); RBC Distribution Width SD 54.6 fl (35.1-43.9); Red Blood Count 4.72 M/mm3 (4.6-6.2); White Blood Count 23.5 K/mm3 (4.4-11.0)
[2018-04-09 04:18] LABS: Differential Indicated SCAN CRITERIA MET; POSITIVE COUNT NO; POSITIVE DIFFERENTIAL YES; POSITIVE MORPHOLOGY NO
--- NOTE | 2018-04-09 04:18 | ED.RN ---
PT CONTINUES TO MOVE HIS LEGS. PROPOFOL INCREASED
[2018-04-09 04:20] LABS: International Normalized Ratio 1.1; Prothrombin Time (Protime)PT. 14.2 SECONDS (11.7-14.9)
[2018-04-09 04:21] LABS: Partial Thromboplast Time 29.7 Seconds (24.1-36.2)
[2018-04-09 04:28] LABS: Red Blood Cells-Urine 0 SEEN /hpf (0-5)
[2018-04-09 04:30] LABS: Color, Urine Yellow (Yellow); Glucose, Dipstick 100 mg/dl (Normal); Ketone-Dipstick Negative (Negative); Leukocyte Esterase-Dipstick 100 /ul (Negative); Nitrite-Dipstick Negative (Negative); Occult Blood-Urine 25 /ul (Negative); Protein-Dipstick 500 mg/dl (Negative); Urine Bilirubin Dipstick Negative (Negative); Urine Clarity Sl. Cloudy (Clear); Urine Urobilinogen Normal (Normal)
--- NOTE | 2018-04-09 04:35 | RAD_ITS ---
STUDY: X-RAY CHEST REASON FOR EXAM: Male, 62 years old. Endotracheal tube placement, unresponsive TECHNIQUE: Single AP portable view of the chest. 3 images COMPARISON: None. FINDINGS: The tracheal tube tip approximately 8.5 cm superior to the romulo. Enteric tube tip over the gastric body seen on portable abdominal film. Airspace opacification of right mid and lower lung parenchyma, minimal opacification of the left perihilar and infrahilar parenchyma. There is no overt effusion. There is no demonstrated pleural abnormality. Normal size heart. Normal mediastinum and asaf. Normal visualized pulmonary arteries. Normal visualized aortic arch and descending thoracic aorta. There are diffuse degenerative changes of the visualized thoracic spine. There is degenerative osteoarthritis of the bilateral shoulders. There is no demonstrated abnormality of the visualized soft tissue structures of the upper abdomen. RAD/Chest 1 View (Portable) IMPRESSION: Lines as above. Predominant right-sided airspace disease possibly inflammatory/infectious in nature. Electronically Signed: Porsche Jacinto MD at 5:34 EDT , Service support ,
--- NOTE | 2018-04-09 04:35 | RAD_ITS ---
STUDY: X-RAY - ABDOMEN/PELVIS REASON FOR EXAM: Male, 62 years old. NG tube placement TECHNIQUE: half left chest/Abdomen. Portable COMPARISON: None. FINDINGS: Airspace disease in the visualized right, less left lung parenchyma. Enteric tube tip over the gastric body. There is gastric distention. There are diffuse degenerative changes of the visualized lumbar spine. RAD/Abdomen Single View (Portable) IMPRESSION: Enteric tube in good position. Right greater than left airspace disease. Electronically Signed: Porsche Jacinto MD at 5:36 EDT , Service support ,
[2018-04-09 04:38] LABS: Bacteria RARE /hpf (None Seen); Mucous, Urine 2+ /hpf (<or=2+); Squamous Epithelial Cells - UA 0-5 SEEN /hpf (0-5); White Blood Cells 5-10 SEEN /hpf (0-5)
[2018-04-09 04:53] LABS: Lactic Acid 1.3 mmol/L (0.4-2.0)
[2018-04-09 04:54] LABS: Differential Comment SCANNED
[2018-04-09 05:06] LABS: ALB/GLOB Ratio 1.2 RATIO (0.9-2.4); AST(SGOT) 26 U/L (15-37); Alanine Aminotransfer ALT/SGPT 30 U/L (16-61); Albumin, Serum 3.8 g/dL (3.2-5.0); Alkaline Phosphatase 103 U/L (45-117); Anion Gap 9 (5-15); BUN 17 mg/dL (7-18); BUN/Creat Ratio 10.3 RATIO (10-20); Calcium,Total 8.5 mg/dL (8.5-10.1); Chloride 104 mmol/L (98-107); Creatinine, Serum 1.65 mg/dL (0.70-1.30); EST Glomerular Filtration Rate 45 mL/min (>60); Est Glom Filt Rate - Afr Amer 54 mL/min (>60); Estimated Creatinine Clearance 49.64 ml/min; Globulin 3.1 g/dL (2.2-4.2); Glucose 229 mg/dL (74-106); Potassium 4.6 mmol/L (3.5-5.1); Protein, Total 6.9 g/dL (6.4-8.2); Sodium Level 145 mmol/L (136-145)
[2018-04-09 05:31] LABS: Base Excess 5 mmol/L (-2 to +2); Bicarbonate 33.6 mmol/L (22-26); Blood Gas Specimen Type ART; FI02 100; Mode A-C; O2 Delivery Device Vent; PEEP 5; PO2 131 mmHG (75-100); RR 14; SITE R Radial; SO2 98 % (95-99); Time Given 521; Total Carbon Dioxide 36 mmol/L; Vt 550; pCO2 87.9 mmHg (35-45); pH 7.19 (7.35-7.45)
--- NOTE | 2018-04-09 05:57 | ED.VISSUMM ---
- ER Visit Summary Date of Service: 04/09/18 Chief Complaint: Respiratory distress, unresponsive History of Present Illness: The patient is a 62 M brought by EMS from home respiratory distress and becoming unresponsive. Initial report possible CHF and COPD history. He is hypoxic. Reported he was recently in the hospital in the last week. No additional information. Physical Examination: Primary survey: Patient unresponsive, poor gag reflex. Bag valve mask with diminished breath sounds on the right side. Pulses are intact. Blood pressure 164/70. Temp of 101.3. Pulse 73, pulse ox 76% on room air. Secondary survey: Regular rate and rhythm. GCS is 3. Pupils equal reactive to light. Test Results: [] Emergency Department Course and Treatment: Upon arrival patient unresponsive GCS of 3, hypoxic being bag valve mask. Patient intubated using a kaleidoscope, 8 oh Uzbek ET tube 24 cm at the lip using etomidate only. There was frothy sputum from the ETT 2. Concerns for initial CHF therefore Lasix was given. Placed on a propofol drip. Workup initiated. No right-sided infiltrative findings. Fever white count 23.5. Troponin negative. Lactic acid 1.3. Blood cultures are pending. NPH 7.2 PCO2 8802 131. Ventilation was manipulated accordingly. EKG was sinus left bundle branch block rate of 97, no ST or T-wave changes. Sepsis protocol, Zosyn and vancomycin IV for Health care associated pneumonia. Spoke with market maker Dr. Tello updated on patient's presentation and findings. Spoke with hospitalist for admission. Treatment Plan: [] Disposition: Admission to ICU Impression: 1. Healthcare associated pneumonia 2. Acute respiratory failure 3. Intubation by ED physician This note was generated with Mimiboard dictation software. It may contain incorrect words, spelling, and punctuation that were not noted in review of the chart prior to signing ED Disposition - Plan for ED Patient: Disposition: Acute Care [facility] Chief Complaint: Unresponsive Diagnosis: Healthcare-associated pneumonia, Acute respiratory failure
--- NOTE | 2018-04-09 05:58 | PCM.HP.STD ---
Problem List (1) Chronic atrial fibrillation Status: Chronic (2) Healthcare-associated pneumonia Status: Acute (3) COPD (chronic obstructive pulmonary disease) Status: Acute (4) CAD (coronary artery disease) Status: Acute History of Present Illness Date of Admission: 04/09/18 Chief Complaint: Dyspnea of unspecified duration. The patient is a 62 year old M with a significant history of CAD, Afib; COPD and CHF who was found slumped over and not breathing and was brought to the emergency department by the paramedics. The patient was discharged a week ago from an outside hospital. History was received from review of charts and from the emergency department doctor who also received his information from paramedics. At emergency department her white count was 23.5. His pH was 7.19. Past Medical History Past Medical History (Chronic Problems): Chronic Problems Chronic atrial fibrillation (Chronic) Allergies cashew nut Allergy (Verified 04/09/18 04:23) Vomiting cortisone Allergy (Verified 04/09/18 04:23) Itching Home Medications: Ambulatory Orders Medication Instructions Recorded Albuterol Inhaler [Ventolin Hfa 1 - 2 puff INHALATION Q4H PRN PRN 04/09/18 (SP)] Amiodarone HCl [Cordarone] 200 mg PO BID 04/09/18 Amlodipine [Norvasc] 10 mg PO DAILY 04/09/18 Apixaban [Eliquis] 5 mg PO BID 04/09/18 Aspirin [Aspirin, Baby] 81 mg PO DAILY@0804/09/18 Atorvastatin Calcium [Lipitor] 40 mg PO QHS 04/09/18 Calcium (Elemental) [[place] 500] 500 mg PO DAILY@79904/09/18 Clopidogrel Bisulfate [Clopidogrel] 75 mg PO DAILY 04/09/18 Diltiazem HCl [Cartia Xt] 180 mg PO DAILY 04/09/18 Ferrous Sulfate 325 mg PO DAILY@79904/09/18 Fluticasone/Salmeterol [Advair 2 puff IH DAILY 04/09/18 250-50 Diskus] Furosemide [Lasix] 40 mg PO BIDLX 04/09/18 Glucosamine Sulf/Chondroitin A 1 each PO DAILY 04/09/18 [Glucosamine-Chondroitin Cap] Ipratropium/Albuterol Sulfate 3 ml INHALATION Q4H.RT 04/09/18 [Duoneb] Losartan Potassium [Cozaar] 50 mg PO DAILY 04/09/18 Potassium Gluconate 1 tab PO DAILY 04/09/18 Prednisone 10 mg PO DAILY 04/09/18 Umeclidinium Likely [Incruse 1 inh INHALATION DAILY 04/09/18 Ellipta] Surgical History: - - Unable to obtain secondary to unresponsiveness. Lives: - - Unable to obtain secondary to unresponsiveness. Smoking Status: Unknown if ever smoked Tobacco Use: - - Unable to obtain secondary to unresponsiveness Drugs: - - Unable to obtain secondary to unresponsiveness - *Family History Paternal History Items: - - Unable to obtain secondary to unresponsiveness Maternal History Items: - - Unable to obtain secondary to unresponsiveness Review of Systems Unable to obtain accurate/complete ROS d/t: Unable to obtain secondary to unresponsiveness VTE Information - Inpt Only VTE Present on Admission: No VTE Mechan Device Prophylaxis: None VTE Pharm Prophylaxis ordered?: No Reason prophylaxis not ordered:: Medical Contraindication Patient Problems: Active and Suspected Problems Healthcare-associated pneumonia (Acute) Acute respiratory failure (Acute) COPD (chronic obstructive pulmonary disease) (Acute) CAD (coronary artery disease) (Acute) - Physical Exam General: - - Unresponsive. Intubated and sedated. HEENT: Atraumatic Neck: Trachea Midline Lungs: Wheezes Cardiovascular: Regular rate, Normal S1, Normal S2 Abdomen: Hypoactive Bowel Sounds Extremities: Edema, - Skin: - - Brawny induration on left leg Musculoskeletal: No Muscle Wasting Lymphatic: No Cervical, Supraclavicular, or Inguinal Adenopathy Neurological: - - Unresponsive. Intubated and sedated. Psych/Mental Status: - - Unresponsiveness. Intubated and sedated. Vital Signs Temp Pulse Resp BP Pulse Ox 101.3 F H 73 21 H 113/61 98 04/09/18 03:42 04/09/18 05:06 04/09/18 05:06 04/09/18 05:06 04/09/18 05:06 Oxygen Delivery Method Mechanical Ventilator Weight: 178.1 kg Body Mass Index (BMI) 53.2 Laboratory Tests Past 24 Hrs 04/09/18 04/09/18 04/09/18 03:50 03:50 03:50 WBC 23.5 H RBC 4.72 Hgb 13.2 Hct 43.6 MCV 92.4 MCH 28.0 MCHC 30.3 L RDW 16.1 H RDW Differential 54.6 H Plt Count 415 MPV 10.1 Immature Gran % (Auto) 1.400 H Neut % (Auto) 71.9 H Lymph % (Auto) 14.9 L Sanders % (Auto) 8.5 Eos % (Auto) 2.8 Baso % (Auto) 0.5 Absolute Neuts (auto) 16.9 H Absolute Lymphs (auto) 3.50 Total Counted Not Reportable Differential Comment SCANNED PT 14.2 INR 1.1 APTT 29.7 Specimen Type Sample Site pH Bicarbonate Actual POC Total CO2 Base Excess O2 Saturation O2 % ABG pCO2 ABG pO2 Respiration Rate O2 Delivery Device Vent Mode Tidal Volume POC PEEP Blood Gas Notified Whom Blood Gas Notified Time Sodium 145 Potassium 4.6 Chloride 104 Carbon Dioxide 32.0 Anion Gap 9 BUN 17 Creatinine 1.65 H Estim Creat Clear Calc 49.64 Est GFR (MDRD) Af Amer 54 L Est GFR (MDRD) Non-Af 45 L BUN/Creatinine Ratio 10.3 Glucose 229 H Lactic Acid Calcium 8.5 Total Bilirubin 0.30 AST 26 ALT 30 Alkaline Phosphatase 103 Troponin I 0.027 Total Protein 6.9 Albumin 3.8 Globulin 3.1 Albumin/Globulin Ratio 1.2 Urine Color Urine Clarity Urine pH Ur Specific [place] Urine Protein Urine Glucose (UA) Urine Ketones Urine Occult Blood Urine Nitrite Urine Bilirubin Urine Urobilinogen Ur Leukocyte Esterase Urine RBC Urine WBC Ur Squamous Epith Cells Urine Bacteria Urine Mucus 04/09/18 04/09/18 04/09/18 03:50 04:25 05:23 WBC RBC Hgb Hct MCV MCH MCHC RDW RDW Differential Plt Count MPV Immature Gran % (Auto) Neut % (Auto) Lymph % (Auto) Sanders % (Auto) Eos % (Auto) Baso % (Auto) Absolute Neuts (auto) Absolute Lymphs (auto) Total Counted Differential Comment PT INR APTT Specimen Type ART Sample Site R Radial pH 7.19 L* Bicarbonate Actual 33.6 H POC Total CO2 36 Base Excess 5 H O2 Saturation 98 O2 % 100 ABG pCO2 87.9 H* ABG pO2 131 H Respiration Rate 14 O2 Delivery Device Vent Vent Mode A-C Tidal Volume 550 POC PEEP 5 Blood Gas Notified Whom ED Blood Gas Notified Time 521 Sodium Potassium Chloride Carbon Dioxide Anion Gap BUN Creatinine Estim Creat Clear Calc Est GFR (MDRD) Af Amer Est GFR (MDRD) Non-Af BUN/Creatinine Ratio Glucose Lactic Acid 1.3 Calcium Total Bilirubin AST ALT Alkaline Phosphatase Troponin I Total Protein Albumin Globulin Albumin/Globulin Ratio Urine Color Yellow Urine Clarity Sl. Cloudy Urine pH 6.0 Ur Specific [place] 1.020 Urine Protein 500 H Urine Glucose (UA) 100 H Urine Ketones Negative Urine Occult Blood 25 H Urine Nitrite Negative Urine Bilirubin Negative Urine Urobilinogen Normal Ur Leukocyte Esterase 100 H Urine RBC 0 SEEN Urine WBC 5-10 SEEN Ur Squamous Epith Cells 0-5 SEEN Urine Bacteria RARE Urine Mucus 2+ Assessment/Plan All Active Problems Healthcare-associated pneumonia (Acute) Acute respiratory failure (Acute) COPD (chronic obstructive pulmonary disease) (Acute) CAD (coronary artery disease) (Acute) The patient is a 62 year old M with a significant history of COPD and CHF who was found slumped over and not breathing and found to have elevated white count; severe respiratory acidosis and radiographic evidence of multifocal pneumonia concerning for a HCAP HCAP with SIRS criteria Patient intubated and sedated secondary to hypercapnic respiratory failure and inability to protect his airways. Propofol and fentanyl for sedation Vancomycin and Zosyn received at emergency department; vancomycin and Zosyn continued Solu-Medrol continued Albuterol as needed DuoNeb scheduled GI prophylaxis with Pepcid Blood cultures and respiratory cultures pending MRSA screen. History of CAD Patient has a left bundle branch block on EKG. No prior EKG at this time. Will order serial troponin. Continue aspirin and Plavix. Chronic A. fib Eliquis and amiodarone continued Cardizem continued Hypertension Norvasc held in view of blood pressure in the low 100s. CHF Lasix IV given at emergency department Lasix IV continued. At this time we will stick to dry patient's lungs. DVT prophylaxis Indicated. Patient already on Eliquis. This note was prepared with speech recognition software and may be prone to errors in orthopedic podiatrist. Code Visit Inpatient E&M: 87930 Init Hosp L3
--- NOTE | 2018-04-09 06:02 | ED.DCSUM_ITS ---
- ER Visit Summary Date of Service: 04/09/18 Chief Complaint: Respiratory distress, unresponsive History of Present Illness: The patient is a 62 M brought by EMS from home respiratory distress and becoming unresponsive. Initial report possible CHF and COPD history. He is hypoxic. Reported he was recently in the hospital in the last week. No additional information. Physical Examination: Primary survey: Patient unresponsive, poor gag reflex. Bag valve mask with diminished breath sounds on the right side. Pulses are intact. Blood pressure 164/70. Temp of 101.3. Pulse 73, pulse ox 76% on room air. Secondary survey: Regular rate and rhythm. GCS is 3. Pupils equal reactive to light. Test Results: [] Emergency Department Course and Treatment: Upon arrival patient unresponsive GCS of 3, hypoxic being bag valve mask. Patient intubated using a kaleidoscope , 8 oh Yoruba ET tube 24 cm at the lip using etomidate only. There was frothy sputum from the ETT 2. Concerns for initial CHF therefore Lasix was given. Placed on a propofol drip. Workup initiated. No right-sided infiltrative findings. Fever white count 23.5. Troponin negative. Lactic acid 1.3. Blood cultures are pending. NPH 7.2 PCO2 8802 131. Ventilation was manipulated accordingly. EKG was sinus left bundle branch block rate of 97, no ST or T- wave changes. Sepsis protocol, Zosyn and vancomycin IV for Health care associated pneumonia. Spoke with hoop punch operator helper Dr. Tello updated on patient's presentation and findings. Spoke with hospitalist for admission. Treatment Plan: [] Disposition: Admission to ICU Impression: 1. Healthcare associated pneumonia 2. Acute respiratory failure 3. Intubation by ED physician This note was generated with Studio[employer] dictation software. It may contain incorrect words, spelling, and punctuation that were not noted in review of the chart prior to signing ED Disposition - Plan for ED Patient: Disposition: Acute Care [facility] Chief Complaint: Unresponsive Diagnosis: Healthcare-associated pneumonia, Acute respiratory failure
[2018-04-09] MEDS: MethylPREDNISolone 125 MG/2 ML Vial IV (06:13)
--- NOTE | 2018-04-09 06:50 | NURSING ---
pt in ICU 6 per cart from ER, ER RNs in attendance
--- NOTE | 2018-04-09 07:40 | NURSING ---
unable to assess, pt sedated
--- NOTE | 2018-04-09 07:40 | RAD_ITS ---
STUDY: X-RAY CHEST REASON FOR EXAM: Male, [address] Barron of endotracheal tube placement. TECHNIQUE: Single AP portable view of the chest. COMPARISON: April 09, 2018 time stamped 4:27 AM. FINDINGS: The tip of endotracheal tube is at the medial clavicles. Enteric tube is present with the tip below the inferior edge of image. The lungs appear hyperexpanded. There is dense right-sided airspace consolidation likely representing pneumonia. There is heterogeneous groundglass attenuation in the left lung. There may be left basilar airspace disease and atelectasis. The right lateral costophrenic angle is not imaged on this study. There appears to be a small left-sided pleural effusion. There is moderate cardiac enlargement. Normal mediastinum and asaf. Normal visualized pulmonary arteries. There is atherosclerotic calcification of the aortic arch with tortuosity. There are diffuse degenerative changes of the visualized thoracic spine. Normal visualized ribs, clavicles, and shoulders. There is no demonstrated abnormality of the visualized soft tissue structures of the upper abdomen. RAD/Chest 1 View (Portable) IMPRESSION: 1. Appropriate positioning of endotracheal tube. 2. Unchanged appearance to bilateral airspace disease, right greater than left. Electronically Signed: Fiona Serrano MD at 8:26 EDT , Service support ,
--- NOTE | 2018-04-09 08:25 | PCM.CON.CC ---
Problem List (1) Acute respiratory failure Status: Acute (2) CAD (coronary artery disease) Status: Acute (3) COPD (chronic obstructive pulmonary disease) Status: Acute (4) Healthcare-associated pneumonia Status: Acute (5) Chronic atrial fibrillation Status: Chronic Reason for Consult Date of Consultation: 04/09/18 Reason for Consultation: Respiratory failure History of Present Illness: The patient is a 62 year old M, with a past medical history significant for CKD stage II, ischemic cardiomyopathy, atrial flutter status post cardioversion, COPD, BPH, hyperlipidemia, CVA, GERD, pulmonary hypertension, morbid obesity and chronic prednisone use, who presented to [facility] on 04/09/2018 after being found by EMS unresponsive. Patient was noted to be hypoxic and was reportedly in the hospital last week. On presentation to the ER, patient was noted to be 76% on room air with a poor gag reflex and a GCS of 3. Patient was emergently intubated using a glide scope and etomidate. Frothy sputum was noted, so Lasix was given. Patient was placed on a propofol drip. Patient was initiated on Zosyn and vancomycin following an x-ray showing mid right lung field infiltrates. After arrival to the intensive care unit, patient was noted to be extremely sedated. Patient is on propofol at high doses and bradycardic. Blood pressures are marginal. Patient was noted to have significant body odor with multiple punctate lesions throughout the abdomen and lower extremities. No family members or next of kin are available. Patient was noted to be bradycardic, so an EKG has been ordered. Patient was noted to be 27 cm at the lips with endotracheal tube. A repeat chest x-ray was obtained to verify tube placement. Repeat ABG is currently pending. Patient is well-known to me from the outpatient arena. Looked patient up in outpatient [facility] and original MR number is #[id number]. This number has all of patient's old beta including outpatient office notes. During my previous encounters with patient, patient has contemplated palliative care and was placed on 10 mg of prednisone therapy for comfort. HPOA information has been found on patient's original medical record number. Registration has been contacted to attempt merging. Past Medical History Past Medical History (Chronic Problems): Chronic Problems Chronic atrial fibrillation (Chronic) Allergies cashew nut Allergy (Verified 04/09/18 04:23) Vomiting cortisone Allergy (Verified 04/09/18 04:23) Itching Home Medications: Ambulatory Orders Medication Instructions Recorded Albuterol Inhaler [Ventolin Hfa 1 - 2 puff INHALATION Q4H PRN PRN 04/09/18 (SP)] Amiodarone HCl [Cordarone] 200 mg PO BID 04/09/18 Amlodipine [Norvasc] 10 mg PO DAILY 04/09/18 Apixaban [Eliquis] 5 mg PO BID 04/09/18 Aspirin [Aspirin, Baby] 81 mg PO DAILY@0804/09/18 Atorvastatin Calcium [Lipitor] 40 mg PO QHS 04/09/18 Calcium (Elemental) [[place] 500] 500 mg PO DAILY@79904/09/18 Clopidogrel Bisulfate [Clopidogrel] 75 mg PO DAILY 04/09/18 Diltiazem HCl [Cartia Xt] 180 mg PO DAILY 04/09/18 Ferrous Sulfate 325 mg PO DAILY@0804/09/18 Fluticasone/Salmeterol [Advair 2 puff IH DAILY 04/09/18 250-50 Diskus] Furosemide [Lasix] 40 mg PO BIDLX 04/09/18 Glucosamine Sulf/Chondroitin A 1 each PO DAILY 04/09/18 [Glucosamine-Chondroitin Cap] Ipratropium/Albuterol Sulfate 3 ml INHALATION Q4H.RT 04/09/18 [Duoneb] Losartan Potassium [Cozaar] 50 mg PO DAILY 04/09/18 Potassium Gluconate 1 tab PO DAILY 04/09/18 Prednisone 10 mg PO DAILY 04/09/18 Umeclidinium [place] [Incruse 1 inh INHALATION DAILY 04/09/18 Ellipta] Surgical History: - - Unable to obtain secondary to unresponsiveness. Lives: - - Unable to obtain secondary to unresponsiveness. Smoking Status: Unknown if ever smoked Tobacco Use: - - Unable to obtain secondary to unresponsiveness Drugs: - - Unable to obtain secondary to unresponsiveness - *Family History Paternal History Items: - - Unable to obtain secondary to unresponsiveness Maternal History Items: - - Unable to obtain secondary to unresponsiveness Review of Systems Unable to obtain accurate/complete ROS d/t: Intubated and sedated Patient Problems: Active and Suspected Problems Healthcare-associated pneumonia (Acute) Acute respiratory failure (Acute) COPD (chronic obstructive pulmonary disease) (Acute) CAD (coronary artery disease) (Acute) Objective: All imaging was personally reviewed. Patient does have significant infiltrate in the right midlung zone. CT had showed no acute abnormality. - Physical Exam General: - - Intubated and sedated. RASS -4. Appears older than stated age. Disheveled. HEENT: Atraumatic, PERRLA, EOMI, Normocephalic, - - No scleral icterus or injection noted. Oral: Moist Mucosa, No Gingival or Mucosal Lesions/ Ulcerations, - - Poor dentition. Neck: Supple, No JVD, No Nodes, Trachea Midline Lungs: No wheeze, No rales, Diminished, Rhonchi - Right greater than left, - - Symmetric expansion. No dullness to percussion. Cardiovascular: Normal S1, Normal S2, No murmurs, Bradycardic, No rub noted, No Gallop Abdomen: Bowel Sounds Present, Soft, Non Tender, Non-Distended, Obese Extremities: No cyanosis, Clubbing, Diminished Peripheral Pulses, Edema - 4+ lower extremity Skin: - - Multiple punctate lesions throughout the inferior abdomen. Venous stasis changes of lower extremities with breakdown over the left mejia and granulation tissue Musculoskeletal: No Tenderness to Palpation of Joints or Extremities Lymphatic: No Cervical, Supraclavicular, or Inguinal Adenopathy Neurological: - - Positive gag and cough reflexes. Little spontaneous movement. Responds to noxious stimulus. No posturing noted. Psych/Mental Status: Flat Affect Vital Signs Temp Pulse Resp BP Pulse Ox 36.4 C L 58 L 16 108/60 93 04/09/18 06:17 04/09/18 06:30 04/09/18 06:30 04/09/18 06:30 04/09/18 06:30 Oxygen Delivery Method Mechanical Ventilator Laboratory Tests 04/09/18 04/09/18 04/09/18 03:50 03:50 03:50 WBC 23.5 H RBC 4.72 Hgb 13.2 Hct 43.6 MCV 92.4 MCH 28.0 MCHC 30.3 L RDW 16.1 H RDW Differential 54.6 H Plt Count 415 MPV 10.1 Immature Gran % (Auto) 1.400 H Neut % (Auto) 71.9 H Lymph % (Auto) 14.9 L Jewell % (Auto) 8.5 Eos % (Auto) 2.8 Baso % (Auto) 0.5 Absolute Neuts (auto) 16.9 H Absolute Lymphs (auto) 3.50 Total Counted Not Reportable Differential Comment SCANNED PT 14.2 INR 1.1 APTT 29.7 Specimen Type Sample Site pH Bicarbonate Actual POC Total CO2 Base Excess O2 Saturation O2 % ABG pCO2 ABG pO2 Respiration Rate O2 Delivery Device Vent Mode Tidal Volume POC PEEP Blood Gas Notified Whom Blood Gas Notified Time Sodium 145 Potassium 4.6 Chloride 104 Carbon Dioxide 32.0 Anion Gap 9 BUN 17 Creatinine 1.65 H Estim Creat Clear Calc 49.64 Est GFR (MDRD) Af Amer 54 L Est GFR (MDRD) Non-Af 45 L BUN/Creatinine Ratio 10.3 Glucose 229 H Lactic Acid Calcium 8.5 Total Bilirubin 0.30 AST 26 ALT 30 Alkaline Phosphatase 103 Troponin I 0.027 Total Protein 6.9 Albumin 3.8 Globulin 3.1 Albumin/Globulin Ratio 1.2 Urine Color Urine Clarity Urine pH Ur Specific [place] Urine Protein Urine Glucose (UA) Urine Ketones Urine Occult Blood Urine Nitrite Urine Bilirubin Urine Urobilinogen Ur Leukocyte Esterase Urine RBC Urine WBC Ur Squamous Epith Cells Urine Bacteria Urine Mucus 04/09/18 04/09/18 04/09/18 03:50 04:25 05:23 WBC RBC Hgb Hct MCV MCH MCHC RDW RDW Differential Plt Count MPV Immature Gran % (Auto) Neut % (Auto) Lymph % (Auto) Jewell % (Auto) Eos % (Auto) Baso % (Auto) Absolute Neuts (auto) Absolute Lymphs (auto) Total Counted Differential Comment PT INR APTT Specimen Type ART Sample Site R Radial pH 7.19 L* Bicarbonate Actual 33.6 H POC Total CO2 36 Base Excess 5 H O2 Saturation 98 O2 % 100 ABG pCO2 87.9 H* ABG pO2 131 H Respiration Rate 14 O2 Delivery Device Vent Vent Mode A-C Tidal Volume 550 POC PEEP 5 Blood Gas Notified Whom ED Blood Gas Notified Time 521 Sodium Potassium Chloride Carbon Dioxide Anion Gap BUN Creatinine Estim Creat Clear Calc Est GFR (MDRD) Af Amer Est GFR (MDRD) Non-Af BUN/Creatinine Ratio Glucose Lactic Acid 1.3 Calcium Total Bilirubin AST ALT Alkaline Phosphatase Troponin I Total Protein Albumin Globulin Albumin/Globulin Ratio Urine Color Yellow Urine Clarity Sl. Cloudy Urine pH 6.0 Ur Specific [place] 1.020 Urine Protein 500 H Urine Glucose (UA) 100 H Urine Ketones Negative Urine Occult Blood 25 H Urine Nitrite Negative Urine Bilirubin Negative Urine Urobilinogen Normal Ur Leukocyte Esterase 100 H Urine RBC 0 SEEN Urine WBC 5-10 SEEN Ur Squamous Epith Cells 0-5 SEEN Urine Bacteria RARE Urine Mucus 2+ Clinical Impression(s) from Imaging Studies Brain CT 04/09/18 03:53 IMPRESSION: Chronic involutional changes of the brain. There is no acute intracranial pathology. Electronically Signed: Porsche Jacinto MD at 6:45 EDT , Service support , Chest X-Ray 04/09/18 04:35 IMPRESSION: Lines as above. Predominant right-sided airspace disease possibly inflammatory/infectious in nature. Electronically Signed: Porsche Jacinto MD at 5:34 EDT , Service support , KUB X-Ray 04/09/18 04:35 IMPRESSION: Enteric tube in good position. Right greater than left airspace disease. Electronically Signed: Porsche Jacinto MD at 5:36 EDT , Service support , Chest X-Ray 04/09/18 07:40 IMPRESSION: 1. Appropriate positioning of endotracheal tube. 2. Unchanged appearance to bilateral airspace disease, right greater than left. Electronically Signed: Fiona Serrano MD at 8:26 EDT , Service support , Assessment/Plan Active and Suspected Problems Healthcare-associated pneumonia (Acute) Acute respiratory failure (Acute) COPD (chronic obstructive pulmonary disease) (Acute) CAD (coronary artery disease) (Acute) RECOMMENDATIONS: 1. Discontinue Eliquis and baseline antihypertensives 2. Continue amiodarone for now 3. Aggressive weaning of propofol therapy 4. Contact [facility] for recommendations 5. Empiric antibiotics 6. Spontaneous breathing trial and awakening trial per protocol 7. Possible central line access IMPRESSIONS: 1. Acute on chronic combined respiratory failure secondary to right pneumonia Patient with a large right-sided infiltrate noted on chest x-ray. Patient does have a history of COPD and CHF. Patient does have lower extremity edema noted, but given leukocytosis, pneumonia is likely etiology. Patient does have marginal blood pressures, but is requiring significant sedation at this time. ABG shows improvement in oxygenation and ventilation after initiation of ventilatory support. Patient's tidal volume will be decreased in an attempt to use low volume respiration. Increase PEEP as necessary to provide oxygenation. 2. Acute on chronic systolic congestive heart failure/a flutter status post cardioversion Patient with significant lower extremity edema and a history of systolic congestive heart failure. Patient is on Lasix therapy. Will continue with Lasix therapy for now. Patient also likely has an element of pulmonary hypertension that would benefit from diuresis. Okay to continue with aspirin and Plavix, but rate control has been held. Amiodarone can be continued. EKG shows continued left bundle branch block with bradycardia. Patient will be taken off of Eliquis therapy given acute condition. Patient currently is in sinus bradycardia with left bundle branch block. 3. Severe sepsis Patient with large right-sided infiltrate and respiratory failure. Patient is on appropriate antibiotics. Attempt to limit IV hydration given patient's underlying congestive heart failure. Some element of decreased blood pressure is likely secondary to high doses of propofol required at this time. Patient is being initiated on fentanyl drip to see if propofol can be decreased. 4. Diabetes mellitus type 2 Patient with elevated blood sugars at this time. Patient will be initiated on tube feeds. Sliding scale insulin for now. Cannot exclude the need for basal insulin. 5. COPD/cor pulmonale/untreated sleep apnea Patient with extensive pulmonary issues at baseline. Patient has not been compliant with ANIBAL therapy and was on 10 mg of prednisone daily for palliative measures. Will attempt to reach out to healthcare power of assistant city attorney to see if patient is truly a full code. Patient is currently not on steroid therapy given relatively low peak airway pressures. However, cannot rule out the need for steroids moving forward. 6. Morbid obesity/stasis dermatitis/hyperlipidemia/hypertension/history of CVA/CKD stage II/BPH/poor information Complicates care, management, recovery and prognosis. TIME: 55 minutes critical care time spent addressing patient's acute on chronic respiratory failure, CHF, severe sepsis, COPD, review of all data and collaboration with care team (8 AM to 9:30 AM) Code Visit [id number]: [id number] Critical care first hour
--- NOTE | 2018-04-09 08:53 | CON.PCM_ITS ---
Problem List (1) Acute respiratory failure Status: Acute (2) CAD (coronary artery disease) Status: Acute (3) COPD (chronic obstructive pulmonary disease) Status: Acute (4) Healthcare-associated pneumonia Status: Acute (5) Chronic atrial fibrillation Status: Chronic Reason for Consult Date of Consultation: 04/09/18 Reason for Consultation: Respiratory failure History of Present Illness: The patient is a 62 year old M, with a past medical history significant for CKD stage II, ischemic cardiomyopathy, atrial flutter status post cardioversion, COPD, BPH, hyperlipidemia, CVA, GERD, pulmonary hypertension, morbid obesity and chronic prednisone use, who presented to [facility] on 2017 after being found by EMS unresponsive. Patient was noted to be hypoxic and was reportedly in the hospital last week. On presentation to the ER, patient was noted to be 76% on room air with a poor gag reflex and a GCS of 3. Patient was emergently intubated using a glide scope and etomidate. Frothy sputum was noted, so Lasix was given. Patient was placed on a propofol drip. Patient was initiated on Zosyn and vancomycin following an x-ray showing mid right lung field infiltrates. After arrival to the intensive care unit, patient was noted to be extremely sedated. Patient is on propofol at high doses and bradycardic. Blood pressures are marginal. Patient was noted to have significant body odor with multiple punctate lesions throughout the abdomen and lower extremities. No family members or next of kin are available. Patient was noted to be bradycardic, so an EKG has been ordered. Patient was noted to be 27 cm at the lips with endotracheal tube. A repeat chest x-ray was obtained to verify tube placement. Repeat ABG is currently pending. Patient is well-known to me from the outpatient arena. Looked patient up in outpatient [employer] and original MR number is #[id number]. This number has all of patient's old beta including outpatient office notes. During my previous encounters with patient, patient has contemplated palliative care and was placed on 10 mg of prednisone therapy for comfort. HPOA information has been found on patient's original medical record number. Registration has been contacted to attempt merging. Past Medical History Past Medical History (Chronic Problems): Chronic Problems Chronic atrial fibrillation (Chronic) Allergies cashew nut Allergy (Verified 04/09/18 04:23) Vomiting cortisone Allergy (Verified 04/09/18 04:23) Itching Home Medications: Ambulatory Orders Medication Instructions Recorded Albuterol Inhaler [Ventolin Hfa 1 - 2 puff INHALATION Q4H PRN PRN 04/09/18 (SP)] Amiodarone HCl [Cordarone] 200 mg PO BID 04/09/18 Amlodipine [Norvasc] 10 mg PO DAILY 04/09/18 Apixaban [Eliquis] 5 mg PO BID 04/09/18 Aspirin [Aspirin, Baby] 81 mg PO DAILY@0804/09/18 Atorvastatin Calcium [Lipitor] 40 mg PO QHS 04/09/18 Calcium (Elemental) [[place] 500] 500 mg PO DAILY@79904/09/18 Clopidogrel Bisulfate [Clopidogrel] 75 mg PO DAILY 04/09/18 Diltiazem HCl [Cartia Xt] 180 mg PO DAILY 04/09/18 Ferrous Sulfate 325 mg PO DAILY@0804/09/18 Fluticasone/Salmeterol [Advair 2 puff IH DAILY 04/09/18 250-50 Diskus] Furosemide [Lasix] 40 mg PO BIDLX 04/09/18 Glucosamine Sulf/Chondroitin A 1 each PO DAILY 04/09/18 [Glucosamine-Chondroitin Cap] Ipratropium/Albuterol Sulfate 3 ml INHALATION Q4H.RT 04/09/18 [Duoneb] Losartan Potassium [Cozaar] 50 mg PO DAILY 04/09/18 Potassium Gluconate 1 tab PO DAILY 04/09/18 Prednisone 10 mg PO DAILY 04/09/18 Umeclidinium [place] [Incruse 1 inh INHALATION DAILY 04/09/18 Ellipta] Surgical History: - - Unable to obtain secondary to unresponsiveness. Lives: - - Unable to obtain secondary to unresponsiveness. Smoking Status: Unknown if ever smoked Tobacco Use: - - Unable to obtain secondary to unresponsiveness Drugs: - - Unable to obtain secondary to unresponsiveness - *Family History Paternal History Items: - - Unable to obtain secondary to unresponsiveness Maternal History Items: - - Unable to obtain secondary to unresponsiveness Review of Systems Unable to obtain accurate/complete ROS d/t: Intubated and sedated Patient Problems: Active and Suspected Problems Healthcare-associated pneumonia (Acute) Acute respiratory failure (Acute) COPD (chronic obstructive pulmonary disease) (Acute) CAD (coronary artery disease) (Acute) Objective: All imaging was personally reviewed. Patient does have significant infiltrate in the right midlung zone. CT had showed no acute abnormality. - Physical Exam General: - - Intubated and sedated. RASS -4. Appears older than stated age. Disheveled. HEENT: Atraumatic, PERRLA, EOMI, Normocephalic, - - No scleral icterus or injection noted. Oral: Moist Mucosa, No Gingival or Mucosal Lesions/ Ulcerations, - - Poor dentition. Neck: Supple, No JVD, No Nodes, Trachea Midline Lungs: No wheeze, No rales, Diminished, Rhonchi - Right greater than left, - - Symmetric expansion. No dullness to percussion. Cardiovascular: Normal S1, Normal S2, No murmurs, Bradycardic, No rub noted, No Gallop Abdomen: Bowel Sounds Present, Soft, Non Tender, Non-Distended, Obese Extremities: No cyanosis, Clubbing, Diminished Peripheral Pulses, Edema - 4+ lower extremity Skin: - - Multiple punctate lesions throughout the inferior abdomen. Venous stasis changes of lower extremities with breakdown over the left mejia and granulation tissue Musculoskeletal: No Tenderness to Palpation of Joints or Extremities Lymphatic: No Cervical, Supraclavicular, or Inguinal Adenopathy Neurological: - - Positive gag and cough reflexes. Little spontaneous movement. Responds to noxious stimulus. No posturing noted. Psych/Mental Status: Flat Affect Vital Signs Temp Pulse Resp BP Pulse Ox 36.4 C L 58 L 16 108/60 93 04/09/18 06:17 04/09/18 06:30 04/09/18 06:30 04/09/18 06:30 04/09/18 06:30 Oxygen Delivery Method Mechanical Ventilator Laboratory Tests 04/09/18 04/09/18 04/09/18 03:50 03:50 03:50 WBC 23.5 H RBC 4.72 Hgb 13.2 Hct 43.6 MCV 92.4 MCH 28.0 MCHC 30.3 L RDW 16.1 H RDW Differential 54.6 H Plt Count 415 MPV 10.1 Immature Gran % (Auto) 1.400 H Neut % (Auto) 71.9 H Lymph % (Auto) 14.9 L Bailey % (Auto) 8.5 Eos % (Auto) 2.8 Baso % (Auto) 0.5 Absolute Neuts (auto) 16.9 H Absolute Lymphs (auto) 3.50 Total Counted Not Reportable Differential Comment SCANNED PT 14.2 INR 1.1 APTT 29.7 Specimen Type Sample Site pH Bicarbonate Actual POC Total CO2 Base Excess O2 Saturation O2 % ABG pCO2 ABG pO2 Respiration Rate O2 Delivery Device Vent Mode Tidal Volume POC PEEP Blood Gas Notified Whom Blood Gas Notified Time Sodium 145 Potassium 4.6 Chloride 104 Carbon Dioxide 32.0 Anion Gap 9 BUN 17 Creatinine 1.65 H Estim Creat Clear Calc 49.64 Est GFR (MDRD) Af Amer 54 L Est GFR (MDRD) Non-Af 45 L BUN/Creatinine Ratio 10.3 Glucose 229 H Lactic Acid Calcium 8.5 Total Bilirubin 0.30 AST 26 ALT 30 Alkaline Phosphatase 103 Troponin I 0.027 Total Protein 6.9 Albumin 3.8 Globulin 3.1 Albumin/Globulin Ratio 1.2 Urine Color Urine Clarity Urine pH Ur Specific [place] Urine Protein Urine Glucose (UA) Urine Ketones Urine Occult Blood Urine Nitrite Urine Bilirubin Urine Urobilinogen Ur Leukocyte Esterase Urine RBC Urine WBC Ur Squamous Epith Cells Urine Bacteria Urine Mucus 04/09/18 04/09/18 04/09/18 03:50 04:25 05:23 WBC RBC Hgb Hct MCV MCH MCHC RDW RDW Differential Plt Count MPV Immature Gran % (Auto) Neut % (Auto) Lymph % (Auto) Bailey % (Auto) Eos % (Auto) Baso % (Auto) Absolute Neuts (auto) Absolute Lymphs (auto) Total Counted Differential Comment PT INR APTT Specimen Type ART Sample Site R Radial pH 7.19 L* Bicarbonate Actual 33.6 H POC Total CO2 36 Base Excess 5 H O2 Saturation 98 O2 % 100 ABG pCO2 87.9 H* ABG pO2 131 H Respiration Rate 14 O2 Delivery Device Vent Vent Mode A-C Tidal Volume 550 POC PEEP 5 Blood Gas Notified Whom ED Blood Gas Notified Time 521 Sodium Potassium Chloride Carbon Dioxide Anion Gap BUN Creatinine Estim Creat Clear Calc Est GFR (MDRD) Af Amer Est GFR (MDRD) Non-Af BUN/Creatinine Ratio Glucose Lactic Acid 1.3 Calcium Total Bilirubin AST ALT Alkaline Phosphatase Troponin I Total Protein Albumin Globulin Albumin/Globulin Ratio Urine Color Yellow Urine Clarity Sl. Cloudy Urine pH 6.0 Ur Specific [place] 1.020 Urine Protein 500 H Urine Glucose (UA) 100 H Urine Ketones Negative Urine Occult Blood 25 H Urine Nitrite Negative Urine Bilirubin Negative Urine Urobilinogen Normal Ur Leukocyte Esterase 100 H Urine RBC 0 SEEN Urine WBC 5-10 SEEN Ur Squamous Epith Cells 0-5 SEEN Urine Bacteria RARE Urine Mucus 2+ Clinical Impression(s) from Imaging Studies Brain CT 04/09/18 03:53 IMPRESSION: Chronic involutional changes of the brain. There is no acute intracranial pathology. Electronically Signed: Porsche Jacinto MD at 6:45 EDT , Service support , Chest X-Ray 04/09/18 04:35 IMPRESSION: Lines as above. Predominant right-sided airspace disease possibly inflammatory/infectious in nature. Electronically Signed: Porsche Jacinto MD at 5:34 EDT , Service support , KUB X-Ray 04/09/18 04:35 IMPRESSION: Enteric tube in good position. Right greater than left airspace disease. Electronically Signed: Porsche Jacinto MD at 5:36 EDT , Service support , Chest X-Ray 04/09/18 07:40 IMPRESSION: 1. Appropriate positioning of endotracheal tube. 2. Unchanged appearance to bilateral airspace disease, right greater than left. Electronically Signed: Fiona Serrano MD at 8:26 EDT , Service support , Assessment/Plan Active and Suspected Problems Healthcare-associated pneumonia (Acute) Acute respiratory failure (Acute) COPD (chronic obstructive pulmonary disease) (Acute) CAD (coronary artery disease) (Acute) RECOMMENDATIONS: 1. Discontinue Eliquis and baseline antihypertensives 2. Continue amiodarone for now 3. Aggressive weaning of propofol therapy 4. Contact [facility] for recommendations 5. Empiric antibiotics 6. Spontaneous breathing trial and awakening trial per protocol 7. Possible central line access IMPRESSIONS: 1. Acute on chronic combined respiratory failure secondary to right pneumonia Patient with a large right-sided infiltrate noted on chest x-ray. Patient does have a history of COPD and CHF. Patient does have lower extremity edema noted, but given leukocytosis, pneumonia is likely etiology. Patient does have marginal blood pressures, but is requiring significant sedation at this time. ABG shows improvement in oxygenation and ventilation after initiation of ventilatory support. Patient's tidal volume will be decreased in an attempt to use low volume respiration. Increase PEEP as necessary to provide oxygenation. 2. Acute on chronic systolic congestive heart failure/a flutter status post cardioversion Patient with significant lower extremity edema and a history of systolic congestive heart failure. Patient is on Lasix therapy. Will continue with Lasix therapy for now. Patient also likely has an element of pulmonary hypertension that would benefit from diuresis. Okay to continue with aspirin and Plavix, but rate control has been held. Amiodarone can be continued. EKG shows continued left bundle branch block with bradycardia. Patient will be taken off of Eliquis therapy given acute condition. Patient currently is in sinus bradycardia with left bundle branch block. 3. Severe sepsis Patient with large right-sided infiltrate and respiratory failure. Patient is on appropriate antibiotics. Attempt to limit IV hydration given patient's underlying congestive heart failure. Some element of decreased blood pressure is likely secondary to high doses of propofol required at this time. Patient is being initiated on fentanyl drip to see if propofol can be decreased. 4. Diabetes mellitus type 2 Patient with elevated blood sugars at this time. Patient will be initiated on tube feeds. Sliding scale insulin for now. Cannot exclude the need for basal insulin. 5. COPD/cor pulmonale/untreated sleep apnea Patient with extensive pulmonary issues at baseline. Patient has not been compliant with ANIBAL therapy and was on 10 mg of prednisone daily for palliative measures. Will attempt to reach out to healthcare power of workers compensation attorney to see if patient is truly a full code. Patient is currently not on steroid therapy given relatively low peak airway pressures. However, cannot rule out the need for steroids moving forward. 6. Morbid obesity/stasis dermatitis/hyperlipidemia/hypertension/history of CVA/CKD stage II/BPH/poor information Complicates care, management, recovery and prognosis. TIME: 55 minutes critical care time spent addressing patient's acute on chronic respiratory failure, CHF, severe sepsis, COPD, review of all data and collaboration with care team (8 AM to 9:30 AM) Code Visit [id number]: [id number] Critical care first hour
[2018-04-09] MEDS: Ipratropium/Albuterol Sulfate 3 ML AMPUL.NEB INHALATION ×4 (09:37→19:14)
[2018-04-09 09:47] LABS: M R Staph aureus DNA By PCR Negative (Negative); Probe Check PASS; Specimen Processing Control PASS
[2018-04-09 10:00] LABS: Magnesium 2.6 mg/dL (1.6-2.6)
[2018-04-09 10:10] LABS: Base Excess 9 mmol/L (-2 to +2); Bicarbonate 32.8 mmol/L (22-26); Blood Gas Specimen Type ART; FI02 75; Mode A-C; O2 Delivery Device Vent; PEEP 8; PO2 124 mmHG (75-100); RR 16; SITE R Radial; SO2 99 % (95-99); Time Given 855; Total Carbon Dioxide 34 mmol/L; Vt 550; pCO2 47.2 mmHg (35-45); pH 7.45 (7.35-7.45)
[2018-04-09] MEDS: Chlorhexidine 15 ML PO ×2 (10:46→21:25)
[2018-04-09] MEDS: Amiodarone 200 MG Tablet GT ×2 (10:47→21:24)
[2018-04-09] MEDS: Clopidogrel Bisulfate 75 MG Tablet GT (10:48)
[2018-04-09] MEDS: Famotidine 20 MG Tablet GT ×2 (10:48→21:24)
[2018-04-09] MEDS: Furosemide 40 MG/4 ML Vial IV ×2 (10:48→21:24)
--- NOTE | 2018-04-09 10:59 | CPS ---
ET tube resecured 8.0 at 27cm, with assistance from nursing.
--- NOTE | 2018-04-09 12:48 | CASEMGMT ---
This RN CM to room to complete CM assessment and pt is currently intubated and there is no family present. Chart review completed at this time, please reference CM assessment completed by this RN CM on 11/30/17. CM to f/u with pt/family when available for further discharge planning/needs. SStaten RN CM
[2018-04-09 14:01] LABS: Bedside Glucose 144 mg/dL (70-110)
--- NOTE | 2018-04-09 14:44 | NURSING ---
pediatric rn present in pt room, mid PICC insertion
[2018-04-09] MEDS: Piperacil/Tazobactam 3.375 GM/50 ML ML IV ×2 (16:02→21:24)
--- NOTE | 2018-04-09 17:10 | PCM.RX.CS ---
Consult Pharmacy has been consulted to manage selected antiobiotic: Vancomycin Type of Consult: New start Suspected Infection: Pneumonia Prior Doses of Antibiotics Received/Current Regimen: Vancomycin 2000mg IV x1 in the ER on 04/09/18 at 600 Labs: Sodium 145 mmol/L (136-145) 04/09/18 03:50 Potassium 4.6 mmol/L (3.5-5.1) 04/09/18 03:50 Chloride 104 mmol/L (98-107) 04/09/18 03:50 Carbon Dioxide 32.0 mmol/L (21.0-32.0) 04/09/18 03:50 Anion Gap 9 (5-15) 04/09/18 03:50 BUN 17 mg/dL (7-18) 04/09/18 03:50 Creatinine 1.65 mg/dL (0.70-1.30) H 04/09/18 03:50 Est GFR (MDRD) Af Amer 54 mL/min (>60) L 04/09/18 03:50 Est GFR (MDRD) Non-Af 45 mL/min (>60) L 04/09/18 03:50 BUN/Creatinine Ratio 10.3 RATIO (10-20) 04/09/18 03:50 Glucose 229 mg/dL (74-106) H 04/09/18 03:50 Microbiology: Microbiology 04/09/18 07:33 Sputum, Induced/Lukens Gram Stain - Final Weight used for dosin.1 kg Estimated Creatinine Clearance: 49.6ml/min Goal Trough: 15-20 mcg/mL Pharmacy Plan for Drug Dosing: Recommend Vancomycin 1250mg IV Q12 hours. Trough to be drawn before the 4th dose Pharmacy Service will continue to monitor and adjust dosing as required. Follow-Up Labs: Trough Vancomycin Labs to be done on [date and time ordered]: Vancomycin trough on 04/10/18 at 1130
--- NOTE | 2018-04-09 17:36 | NURSING ---
all education re chronic illness deferred till acute illness resolving
[2018-04-09 18:15] LABS: Bedside Glucose 132 mg/dL (70-110)
[2018-04-09] MEDS: Atorvastatin Calcium 40 MG Tablet PO (21:24)
[2018-04-09] MEDS: 0.9% NaCl Peripheral Flush Adult/Peds IV ×2 (21:24→21:50)
[2018-04-09] MEDS: LORazepam 2 MG/ML Syringe IV (21:49)
[2018-04-09 22:29] LABS: Anion Gap 2 (5-15); BUN 20 mg/dL (7-18); BUN/Creat Ratio 13.8 RATIO (10-20); Chloride 103 mmol/L (98-107); Creatinine, Serum 1.45 mg/dL (0.70-1.30); EST Glomerular Filtration Rate 52 mL/min (>60); Est Glom Filt Rate - Afr Amer 63 mL/min (>60); Estimated Creatinine Clearance 56.49 ml/min; Glucose 134 mg/dL (74-106); Magnesium 2.5 mg/dL (1.6-2.6); Potassium 4.3 mmol/L (3.5-5.1); Sodium Level 142 mmol/L (136-145)
[2018-04-09 23:04] LABS: Phosphorus 4.6 mg/dL (2.5-4.9)
[2018-04-09 23:21] LABS: Bedside Glucose 125 mg/dL (70-110)
[2018-04-10] VITALS (45 sets, daily range): BP systolic 116–148; BP diastolic 49–107; PULSE 53–92; RESP 14–28; TEMP 36.7–37.5; O2SAT 90–98
[2018-04-10] MEDS: Ipratropium/Albuterol Sulfate 3 ML AMPUL.NEB INHALATION ×7 (00:10→22:59)
[2018-04-10] MEDS: 0.9% NaCl Peripheral Flush Adult/Peds IV ×3 (00:23→05:07)
--- NOTE | 2018-04-10 01:15 | NURSING ---
Teaching of patient's multiple chronic conditions postponed until clinical status less critical
[2018-04-10] MEDS: LORazepam 2 MG/ML Syringe IV ×3 (02:45→05:07)
[2018-04-10] MEDS: CHLORHEXIDINE GLUC 2% CLOTH 1 EACH TOWELETTE TOPICAL (02:46)
[2018-04-10] MEDS: Piperacil/Tazobactam 3.375 GM/50 ML ML IV ×3 (05:12→21:03)
[2018-04-10 05:21] LABS: Bedside Glucose 140 mg/dL (70-110)
[2018-04-10 06:10] LABS: Hematocrit 34.2 % (40-54); Hemoglobin 10.4 g/dl (13.0-16.5); Mean Corp Hgb Conc 30.4 g/gl (32-36); Mean Corpuscular Hgb 27.7 pg (27.0-32.0); Mean Corpuscular Volume 91.2 fL (80-94); Mean Platelet Vol. 10.2 fl (6.2-12.0); Platelet Count 214 K/mm3 (150-450); RBC Distribution Width CV 15.6 % (11.6-14.6); Red Blood Count 3.75 M/mm3 (4.6-6.2); White Blood Count 11.4 K/mm3 (4.4-11.0)
[2018-04-10 06:13] LABS: Scan Indicated on CBC? Y/N NO
[2018-04-10 06:21] LABS: Anion Gap 6 (5-15); BUN 22 mg/dL (7-18); BUN/Creat Ratio 15.1 RATIO (10-20); Calcium,Total 8.6 mg/dL (8.5-10.1); Chloride 103 mmol/L (98-107); Creatinine, Serum 1.46 mg/dL (0.70-1.30); EST Glomerular Filtration Rate 52 mL/min (>60); Est Glom Filt Rate - Afr Amer 62 mL/min (>60); Glucose 131 mg/dL (74-106); Potassium 4.2 mmol/L (3.5-5.1); Sodium Level 146 mmol/L (136-145)
--- NOTE | 2018-04-10 06:29 | EKG12_ITS ---
Test Reason : Blood Pressure : / mmHG Vent. Rate : 055 BPM Atrial Rate : 055 BPM P-R Int : 200 ms QRS Dur : 170 ms QT Int : 582 ms P-R-T Axes : 091 052 107 degrees QTc Int : 556 ms Sinus bradycardia Left bundle branch block Abnormal ECG Confirmed by JOIE HERRERA, FLASH ([id number]), staff editor AZRA DOBBINS ([id number] on 04/15/2018 8:30:29 AM Referred By: Confirmed By:FLASH SALTER MD
--- NOTE | 2018-04-10 07:51 | PCM.PN.INT ---
Subjective: Patient did okay overnight. Patient has had some issues with hypoxemia leading to increase in PEEP to 10. Patient was also noted to have an elevated QTC overnight. Patient's blood pressure has remained adequate, but patient's temperature has increased overnight. Tube feeds were not initiated secondary to miscommunication, not intolerance. Did discuss with patient's POA yesterday. Patient is to be a DNR Comfort Care arrest. My impression of the conversation is that aggressive medical care will be pursued unless patient has a step back. Hemodialysis or tracheostomy would not be an acceptable outcome. General: - - RASS -1. Morbidly obese. Good vent synchrony noted. Appears older than stated age. HEENT: Atraumatic, PERRLA, EOMI, Normocephalic, - - No scleral icterus or injection noted. Oral: Moist Mucosa, No Gingival or Mucosal Lesions/ Ulcerations, - - Fair dentition Neck: Supple, No JVD, No Nodes, Trachea Midline Lungs: No wheeze, No rales, Diminished, Rhonchi, - - Symmetric expansion. No dullness to percussion. Cardiovascular: Normal S1, Normal S2, No murmurs, Bradycardic, No rub noted, No Gallop, - - Left bundle branch pattern on EKG with prolonged QT Abdomen: Bowel Sounds Present, Soft, Non Tender, Non-Distended, Obese Extremities: No cyanosis, Capillary Refill Less than 3 Seconds, Clubbing, Edema - Lower extremity improved from previous Skin: - - No significant change compared to previous Musculoskeletal: No Tenderness to Palpation of Joints or Extremities Lymphatic: No Cervical, Supraclavicular, or Inguinal Adenopathy Neurological: Cranial nerves II-XII grossly intact, Neuro grossly intact, Motor Exam 5/5 strength throughout Psych/Mental Status: Normal Affect, Appropriate Vital Signs Temp Pulse Resp BP Pulse Ox 36.9 C 54 L 16 123/59 H 97 04/10/18 06:00 04/10/18 07:07 04/10/18 07:07 04/10/18 06:00 04/10/18 07:07 Oxygen Delivery Method Mechanical Ventilator Weight: 170 kg Body Mass Index (BMI) 49.2 Intake and Output for Last 24 Hours 04/08/18 04/09/18 04/10/18 23:59 23:59 23:59 Intake Total 1764 / 1764 733 / 733 Output Total 3375 / 3375 1900 / 1900 Balance -1611 / -1611 -1167 / -1167 Labs (Last 48 Hours) 04/09/18 04/09/18 04/09/18 08:00 09:00 09:00 WBC RBC Hgb Hct MCV MCH MCHC RDW RDW Differential Plt Count MPV Specimen Type Sample Site pH Bicarbonate Actual POC Total CO2 Base Excess O2 Saturation O2 % ABG pCO2 ABG pO2 [place] Test Respiration Rate O2 Delivery Device Minute Volume Vent Mode Tidal Volume POC PEEP Blood Gas Notified Whom Blood Gas Notified Time Sodium Potassium Chloride Carbon Dioxide Anion Gap BUN Creatinine Estim Creat Clear Calc Est GFR (MDRD) Af Amer Est GFR (MDRD) Non-Af BUN/Creatinine Ratio Glucose Calcium Phosphorus Magnesium 2.6 Troponin I 0.176 H MRSA (PCR) Negative POC Glucose 04/09/18 04/09/18 04/09/18 09:09 13:50 14:45 WBC RBC Hgb Hct MCV MCH MCHC RDW RDW Differential Plt Count MPV Specimen Type ART Sample Site R Radial pH 7.45 Bicarbonate Actual 32.8 H POC Total CO2 34 Base Excess 9 H O2 Saturation 99 O2 % 75 ABG pCO2 47.2 H ABG pO2 124 H [place] Test NA Respiration Rate 16 O2 Delivery Device Vent Minute Volume 10.00 Vent Mode A-C Tidal Volume 550 POC PEEP 8 Blood Gas Notified Whom ICU MD Blood Gas Notified Time 855 Sodium Potassium Chloride Carbon Dioxide Anion Gap BUN Creatinine Estim Creat Clear Calc Est GFR (MDRD) Af Amer Est GFR (MDRD) Non-Af BUN/Creatinine Ratio Glucose Calcium Phosphorus Magnesium Troponin I 0.245 H MRSA (PCR) POC Glucose 144 H 04/09/18 04/09/18 04/09/18 18:06 22:00 22:00 WBC RBC Hgb Hct MCV MCH MCHC RDW RDW Differential Plt Count MPV Specimen Type Sample Site pH Bicarbonate Actual POC Total CO2 Base Excess O2 Saturation O2 % ABG pCO2 ABG pO2 [place] Test Respiration Rate O2 Delivery Device Minute Volume Vent Mode Tidal Volume POC PEEP Blood Gas Notified Whom Blood Gas Notified Time Sodium 142 Potassium 4.3 Chloride 103 Carbon Dioxide 37.0 H Anion Gap 2 L BUN 20 H Creatinine 1.45 H Estim Creat Clear Calc 56.49 Est GFR (MDRD) Af Amer 63 Est GFR (MDRD) Non-Af 52 L BUN/Creatinine Ratio 13.8 Glucose 134 H Calcium 9.0 Phosphorus 4.6 Magnesium 2.5 Troponin I MRSA (PCR) POC Glucose 132 H 04/09/18 04/10/18 04/10/18 23:18 05:16 05:20 WBC 11.4 H RBC 3.75 L Hgb 10.4 L Hct 34.2 L MCV 91.2 MCH 27.7 MCHC 30.4 L RDW 15.6 H RDW Differential 51.0 H Plt Count 214 MPV 10.2 Specimen Type Sample Site pH Bicarbonate Actual POC Total CO2 Base Excess O2 Saturation O2 % ABG pCO2 ABG pO2 [place] Test Respiration Rate O2 Delivery Device Minute Volume Vent Mode Tidal Volume POC PEEP Blood Gas Notified Whom Blood Gas Notified Time Sodium Potassium Chloride Carbon Dioxide Anion Gap BUN Creatinine Estim Creat Clear Calc Est GFR (MDRD) Af Amer Est GFR (MDRD) Non-Af BUN/Creatinine Ratio Glucose Calcium Phosphorus Magnesium Troponin I MRSA (PCR) POC Glucose 125 H 140 H 04/10/18 05:20 WBC RBC Hgb Hct MCV MCH MCHC RDW RDW Differential Plt Count MPV Specimen Type Sample Site pH Bicarbonate Actual POC Total CO2 Base Excess O2 Saturation O2 % ABG pCO2 ABG pO2 [place] Test Respiration Rate O2 Delivery Device Minute Volume Vent Mode Tidal Volume POC PEEP Blood Gas Notified Whom Blood Gas Notified Time Sodium 146 H Potassium 4.2 Chloride 103 Carbon Dioxide 37.0 H Anion Gap 6 BUN 22 H Creatinine 1.46 H Estim Creat Clear Calc 56.10 Est GFR (MDRD) Af Amer 62 Est GFR (MDRD) Non-Af 52 L BUN/Creatinine Ratio 15.1 Glucose 131 H Calcium 8.6 Phosphorus Magnesium Troponin I MRSA (PCR) POC Glucose Microbiology 04/09/18 07:33 Sputum, Induced/Lukens Gram Stain - Final Clinical Impression(s) from Imaging Studies Chest X-Ray 04/09/18 07:40 IMPRESSION: 1. Appropriate positioning of endotracheal tube. 2. Unchanged appearance to bilateral airspace disease, right greater than left. Electronically Signed: Fiona Serrano MD at 8:26 EDT , Service support , Medical Necessity - Tobacco Use Smoking Status: Former smoker Tobacco Use: - Assessment/Plan All Active Problems Healthcare-associated pneumonia (Acute) Acute respiratory failure (Acute) COPD (chronic obstructive pulmonary disease) (Acute) CAD (coronary artery disease) (Acute) RECOMMENDATIONS: 1. Discontinue Eliquis and baseline antihypertensives 2. Discontinue amiodarone 3. Continue aggressive care for now 4. Discontinue vancomycin, continue other antibiotic 5. Obtain mag and phosphorus levels this morning with supplementation if indicated 6. Spontaneous awakening and breathing trial IMPRESSIONS: 1. Acute on chronic combined respiratory failure secondary to right pneumonia Patient with a large right-sided infiltrate noted on chest x-ray. Patient does have a history of COPD and CHF. Patient does have lower extremity edema noted, but given leukocytosis, pneumonia is likely etiology. Patient's blood pressures have slightly improved. Patient is requiring increased PEEP levels to maintain saturations. Continue to adjust PEEP as necessary to keep FiO2 60% or less. Did not qualify for a spontaneous breathing trial this morning. 2. Acute on chronic systolic congestive heart failure/a flutter status post cardioversion/prolonged QT Patient with significant lower extremity edema and a history of systolic congestive heart failure. Patient is on Lasix therapy. Will continue with Lasix therapy for now. Patient also likely has an element of pulmonary hypertension that would benefit from diuresis. Okay to continue with aspirin and Plavix, but rate control has been held. Given patient's significantly prolonged QT, amiodarone will be discontinued. This may lead to decompensation to a flutter/A. fib and will need to be watched closely. Patient is rate controlled at this time. 3. Severe sepsis Patient with large right-sided infiltrate and respiratory failure. Patient is on appropriate antibiotics. Attempt to limit IV hydration given patient's underlying congestive heart failure. Propofol dosing has been decreased with some improvement in blood pressure. Continue fentanyl drip to address pain issues. 4. Diabetes mellitus type 2 Well-controlled at this time. Patient will be initiated on tube feeds. Sliding scale insulin for now. Cannot exclude the need for basal insulin. 5. COPD/cor pulmonale/untreated sleep apnea Patient with extensive pulmonary issues at baseline. Patient has not been compliant with ANIBAL therapy and was on 10 mg of prednisone daily for palliative measures. If patient starts to develop lower blood pressures, may institute stress dose steroids. 6. Morbid obesity/stasis dermatitis/hyperlipidemia/hypertension/history of CVA/CKD stage II/BPH/poor information Complicates care, management, recovery and prognosis. TIME: 35 minutes critical care time spent addressing patient's acute on chronic respiratory failure, CHF, severe sepsis, COPD, review of all data and collaboration with care team (7 AM to 8 AM) Code Visit [id number]: [id number] Critical care first hour
[2018-04-10 08:05] LABS: Magnesium 2.4 mg/dL (1.6-2.6); Phosphorus 4.5 mg/dL (2.5-4.9)
[2018-04-10] MEDS: Propofol 10MG/Ml 1,000 MG/100 ML Bottle 5.343 MG CONT INF ×2 (08:34→19:25)
[2018-04-10] MEDS: Aspirin 81 MG TAB.CHEW GT (09:01)
[2018-04-10] MEDS: Ferrous Sulfate 300 MG/5 ML UDC GT (09:01)
[2018-04-10] MEDS: Famotidine 20 MG Tablet GT ×2 (09:02→21:02)
[2018-04-10] MEDS: Calcium (Elemental) 500 MG Tablet GT (09:02)
[2018-04-10] MEDS: Clopidogrel Bisulfate 75 MG Tablet GT (09:02)
[2018-04-10] MEDS: Chlorhexidine 15 ML PO ×2 (09:03→21:02)
[2018-04-10] MEDS: Furosemide 40 MG/4 ML Vial IV ×2 (09:03→21:02)
[2018-04-10 12:20] LABS: Bedside Glucose 132 mg/dL (70-110)
[2018-04-10] MEDS: Vital AF 1.2 Cal Liquid 1,000 ML 25 ML GT (12:28)
[2018-04-10] MEDS: Albuterol 2.5 MG/3 ML VIAL.NEB. INHALATION (14:02)
[2018-04-10 17:56] LABS: Bedside Glucose 113 mg/dL (70-110)
--- NOTE | 2018-04-10 17:57 | PCM.PROGNOTE ---
Patient Problems: Active and Suspected Problems Healthcare-associated pneumonia (Acute) Acute respiratory failure (Acute) COPD (chronic obstructive pulmonary disease) (Acute) CAD (coronary artery disease) (Acute) Subjective: Patient seen and examined today, he remains sedated and on the ventilator, patient's sputum culture showed no growth so far - Physical Exam General: No apparent distress, Well developed HEENT: Atraumatic, PERRLA, Normocephalic Oral: Moist Mucosa Neck: Supple, No JVD, No Nuchal Rigidity, Trachea Midline, Thyroid Normal Size and Texture Lungs: Clear to auscultation, Normal air movement, No rhonchi, No wheeze, No rales Cardiovascular: Regular rate, Regular Rhythm, Normal S1, Normal S2, No murmurs, No Ectopic Activity, PMI Normal, Bradycardic, No rub noted, No Gallop Abdomen: Bowel Sounds Present, Soft, Non Tender, Non-Distended, Obese, No hernias noted Extremities: No edema, Capillary Refill Less than 3 Seconds Neurological: Cranial nerves II-XII grossly intact, - - Patient is sedated on the ventilator Psych/Mental Status: - - Patient is sedated and on the ventilator Vital Signs Temp Pulse Resp BP Pulse Ox 98.6 F 54 L 16 119/53 L 93 04/10/18 16:00 04/10/18 17:30 04/10/18 17:30 04/10/18 17:00 04/10/18 17:30 Oxygen Flow Rate (L/min) 4 Oxygen Delivery Method Mechanical Ventilator Weight: 170 kg Body Mass Index (BMI) 49.2 Intake and Output for Last 24 Hours 04/08/18 04/09/18 04/10/18 23:59 23:59 23:59 Intake Total 1764 / 1764 1621.2 / 1621.2 Output Total 3375 / 3375 3700 / 3700 Balance -1611 / -1611 -2078.8 / -2078.8 Microbiology Past 72 Hours 04/09/18 07:33 Gram Stain - Final Sputum, Induced/Lukens Respiratory Culture - Preliminary Culture exhibits no growth. Laboratory Tests Past 24 Hrs 04/09/18 04/09/18 04/10/18 22:00 22:00 05:20 WBC 11.4 H RBC 3.75 L Hgb 10.4 L Hct 34.2 L MCV 91.2 MCH 27.7 MCHC 30.4 L RDW 15.6 H RDW Differential 51.0 H Plt Count 214 MPV 10.2 Sodium 142 Potassium 4.3 Chloride 103 Carbon Dioxide 37.0 H Anion Gap 2 L BUN 20 H Creatinine 1.45 H Estim Creat Clear Calc 56.49 Est GFR (MDRD) Af Amer 63 Est GFR (MDRD) Non-Af 52 L BUN/Creatinine Ratio 13.8 Glucose 134 H Calcium 9.0 Phosphorus 4.6 Magnesium 2.5 04/10/18 04/10/18 05:20 05:20 WBC RBC Hgb Hct MCV MCH MCHC RDW RDW Differential Plt Count MPV Sodium 146 H Potassium 4.2 Chloride 103 Carbon Dioxide 37.0 H Anion Gap 6 BUN 22 H Creatinine 1.46 H Estim Creat Clear Calc 56.10 Est GFR (MDRD) Af Amer 62 Est GFR (MDRD) Non-Af 52 L BUN/Creatinine Ratio 15.1 Glucose 131 H Calcium 8.6 Phosphorus 4.5 Magnesium 2.4 POC Glucose 04/10/18 04/10/18 04/10/18 17:38 12:17 05:16 POC Glucose 113 H 132 H 140 H 04/09/18 04/09/18 23:18 18:06 POC Glucose 125 H 132 H Medical Necessity - Tobacco Use Smoking Status: Former smoker Tobacco Use: - Assessment/Plan All Active Problems Healthcare-associated pneumonia (Acute) Acute respiratory failure (Acute) COPD (chronic obstructive pulmonary disease) (Acute) CAD (coronary artery disease) (Acute) #1 acute on chronic combined respiratory failure-pulmonary medicine is managing the patient's ventilator #2 right-sided healthcare-acquired pneumonia-continue present antibiotic coverage #3 severe sepsis from community-acquired pneumonia #4 type 2 diabetes #5 chronic obstructive pulmonary disease #6 pulmonary hypertension #7 morbid obesity #8 chronic kidney disease stage II #9 tachycardia mediated cardiomyopathy-EF of 45% on JODY done on 09/07/17 #10 elevated troponins-etiology unclear at this point #11 probable coronary artery disease-patient refuses catheterization during an earlier admission this year, cardiac enzymes were noted to be mildly abnormal at that time, transesophageal echocardiogram performed on 09/07/17 showed an EF of 45% Code Visit Inpatient E&M: 39356 Subs Hosp L2
[2018-04-10] MEDS: Atorvastatin Calcium 40 MG Tablet PO (21:01)
[2018-04-10 23:06] LABS: Bedside Glucose 133 mg/dL (70-110)
[2018-04-11] VITALS (38 sets, daily range): BP systolic 123–162; BP diastolic 49–83; PULSE 50–92; RESP 14–27; TEMP 37–37.3; O2SAT 90–96
--- NOTE | 2018-04-11 00:52 | NURSING ---
Teaching of patient's multiple chronic conditions postponed until clinical status less critical
[2018-04-11] MEDS: Propofol 10MG/Ml 1,000 MG/100 ML Bottle 5.343 MG CONT INF ×3 (03:25→20:51)
[2018-04-11] MEDS: Ipratropium/Albuterol Sulfate 3 ML AMPUL.NEB INHALATION ×6 (03:34→23:01)
[2018-04-11] MEDS: Piperacil/Tazobactam 3.375 GM/50 ML ML IV ×3 (06:05→22:22)
[2018-04-11] MEDS: 0.9% NaCl Peripheral Flush Adult/Peds IV ×2 (06:08→10:51)
--- NOTE | 2018-04-11 06:22 | PN_ITS ---
Subjective: The patient was seen and examined at the bedside this morning. Events from the last 24 hours have been reviewed. The patient is currently afebrile, bradycardic but hemodynamically stable. FiO2 requirement has been weaned to 40% . PEEP remains at 8. The patient has been administered IV Lasix and is currently overall net -4.5 L for the admission. Objective: The patient's most recent lab work, culture data and imaging studies have all been personally reviewed. Blood, urine and sputum culture has shown no growth to date. General: - - Intubated, sedated and mechanically ventilated. HEENT: Atraumatic, PERRLA, Normocephalic Oral: No Gingival or Mucosal Lesions/ Ulcerations, - - Endotracheal and OG tubes in place Neck: Supple, No Nodes, Trachea Midline Lungs: No rhonchi, No wheeze, No rales, Diminished Cardiovascular: Normal S1, Normal S2, No murmurs, Bradycardic Abdomen: Bowel Sounds Present, Soft, Non Tender, Non-Distended, Obese Extremities: No clubbing, No cyanosis, Edema Skin: No breakdown Musculoskeletal: No Tenderness to Palpation of Joints or Extremities Lymphatic: No Cervical, Supraclavicular, or Inguinal Adenopathy Neurological: - - No focal deficits. Will arouse and follow simple commands. Vital Signs Temp Pulse Resp BP Pulse Ox 98.8 F 53 L 15 134/55 H 91 04/11/18 06:00 04/11/18 06:00 04/11/18 06:00 04/11/18 06:00 04/11/18 06:00 Oxygen Flow Rate (L/min) 4 Oxygen Delivery Method Mechanical Ventilator Weight: 375 lb 7.155 oz Body Mass Index (BMI) 49.2 Intake and Output for Last 24 Hours 04/09/18 04/10/18 04/11/18 23:59 23:59 23:59 Intake Total 1764 / 1764 1651.2 / 1651.2 1226 / 1226 Output Total 3375 / 3375 3700 / 3700 2150 / 2150 Balance -1611 / -1611 -2048.8 / -2048.8 -924 / -924 Labs (Last 48 Hours) 04/09/18 04/09/18 04/09/18 08:00 09:00 09:00 WBC RBC Hgb Hct MCV MCH MCHC RDW RDW Differential Plt Count MPV Specimen Type Sample Site pH Bicarbonate Actual POC Total CO2 Base Excess O2 Saturation O2 % ABG pCO2 ABG pO2 [place] Test Respiration Rate O2 Delivery Device Minute Volume Vent Mode Tidal Volume POC PEEP Blood Gas Notified Whom Blood Gas Notified Time Sodium Potassium Chloride Carbon Dioxide Anion Gap BUN Creatinine Estim Creat Clear Calc Est GFR (MDRD) Af Amer Est GFR (MDRD) Non-Af BUN/Creatinine Ratio Glucose Calcium Phosphorus Magnesium 2.6 Troponin I 0.176 H MRSA (PCR) Negative POC Glucose 04/09/18 04/09/18 04/09/18 09:09 13:50 14:45 WBC RBC Hgb Hct MCV MCH MCHC RDW RDW Differential Plt Count MPV Specimen Type ART Sample Site R Radial pH 7.45 Bicarbonate Actual 32.8 H POC Total CO2 34 Base Excess 9 H O2 Saturation 99 O2 % 75 ABG pCO2 47.2 H ABG pO2 124 H [place] Test NA Respiration Rate 16 O2 Delivery Device Vent Minute Volume 10.00 Vent Mode A-C Tidal Volume 550 POC PEEP 8 Blood Gas Notified Whom ICU MD Blood Gas Notified Time 855 Sodium Potassium Chloride Carbon Dioxide Anion Gap BUN Creatinine Estim Creat Clear Calc Est GFR (MDRD) Af Amer Est GFR (MDRD) Non-Af BUN/Creatinine Ratio Glucose Calcium Phosphorus Magnesium Troponin I 0.245 H MRSA (PCR) POC Glucose 144 H 04/09/18 04/09/18 04/09/18 18:06 22:00 22:00 WBC RBC Hgb Hct MCV MCH MCHC RDW RDW Differential Plt Count MPV Specimen Type Sample Site pH Bicarbonate Actual POC Total CO2 Base Excess O2 Saturation O2 % ABG pCO2 ABG pO2 [place] Test Respiration Rate O2 Delivery Device Minute Volume Vent Mode Tidal Volume POC PEEP Blood Gas Notified Whom Blood Gas Notified Time Sodium 142 Potassium 4.3 Chloride 103 Carbon Dioxide 37.0 H Anion Gap 2 L BUN 20 H Creatinine 1.45 H Estim Creat Clear Calc 56.49 Est GFR (MDRD) Af Amer 63 Est GFR (MDRD) Non-Af 52 L BUN/Creatinine Ratio 13.8 Glucose 134 H Calcium 9.0 Phosphorus 4.6 Magnesium 2.5 Troponin I MRSA (PCR) POC Glucose 132 H 04/09/18 04/10/18 04/10/18 23:18 05:16 05:20 WBC 11.4 H RBC 3.75 L Hgb 10.4 L Hct 34.2 L MCV 91.2 MCH 27.7 MCHC 30.4 L RDW 15.6 H RDW Differential 51.0 H Plt Count 214 MPV 10.2 Specimen Type Sample Site pH Bicarbonate Actual POC Total CO2 Base Excess O2 Saturation O2 % ABG pCO2 ABG pO2 [place] Test Respiration Rate O2 Delivery Device Minute Volume Vent Mode Tidal Volume POC PEEP Blood Gas Notified Whom Blood Gas Notified Time Sodium Potassium Chloride Carbon Dioxide Anion Gap BUN Creatinine Estim Creat Clear Calc Est GFR (MDRD) Af Amer Est GFR (MDRD) Non-Af BUN/Creatinine Ratio Glucose Calcium Phosphorus Magnesium Troponin I MRSA (PCR) POC Glucose 125 H 140 H 04/10/18 04/10/18 04/10/18 05:20 05:20 12:17 WBC RBC Hgb Hct MCV MCH MCHC RDW RDW Differential Plt Count MPV Specimen Type Sample Site pH Bicarbonate Actual POC Total CO2 Base Excess O2 Saturation O2 % ABG pCO2 ABG pO2 [place] Test Respiration Rate O2 Delivery Device Minute Volume Vent Mode Tidal Volume POC PEEP Blood Gas Notified Whom Blood Gas Notified Time Sodium 146 H Potassium 4.2 Chloride 103 Carbon Dioxide 37.0 H Anion Gap 6 BUN 22 H Creatinine 1.46 H Estim Creat Clear Calc 56.10 Est GFR (MDRD) Af Amer 62 Est GFR (MDRD) Non-Af 52 L BUN/Creatinine Ratio 15.1 Glucose 131 H Calcium 8.6 Phosphorus 4.5 Magnesium 2.4 Troponin I MRSA (PCR) POC Glucose 132 H 04/10/18 04/10/18 17:38 23:01 WBC RBC Hgb Hct MCV MCH MCHC RDW RDW Differential Plt Count MPV Specimen Type Sample Site pH Bicarbonate Actual POC Total CO2 Base Excess O2 Saturation O2 % ABG pCO2 ABG pO2 [place] Test Respiration Rate O2 Delivery Device Minute Volume Vent Mode Tidal Volume POC PEEP Blood Gas Notified Whom Blood Gas Notified Time Sodium Potassium Chloride Carbon Dioxide Anion Gap BUN Creatinine Estim Creat Clear Calc Est GFR (MDRD) Af Amer Est GFR (MDRD) Non-Af BUN/Creatinine Ratio Glucose Calcium Phosphorus Magnesium Troponin I MRSA (PCR) POC Glucose 113 H 133 H Microbiology 04/09/18 07:33 Sputum, Induced/Lukens Gram Stain - Final 04/09/18 07:33 Sputum, Induced/Lukens Respiratory Culture - Preliminary Culture exhibits no growth. Clinical Impression(s) from Imaging Studies Brain CT 04/09/18 03:53 IMPRESSION: Chronic involutional changes of the brain. There is no acute intracranial pathology. Electronically Signed: Porsche Jacinto MD at 6:45 EDT , Service support , Chest X-Ray 04/09/18 04:35 IMPRESSION: Lines as above. Predominant right-sided airspace disease possibly inflammatory/infectious in nature. Electronically Signed: Porsche Jacinto MD at 5:34 EDT , Service support , KUB X-Ray 04/09/18 04:35 IMPRESSION: Enteric tube in good position. Right greater than left airspace disease. Electronically Signed: Porsche Jacinto MD at 5:36 EDT , Service support , Chest X-Ray 04/09/18 07:40 IMPRESSION: 1. Appropriate positioning of endotracheal tube. 2. Unchanged appearance to bilateral airspace disease, right greater than left. Electronically Signed: Fiona Serrano MD at 8:26 EDT , Service support , Medical Necessity - Tobacco Use Smoking Status: Former smoker Tobacco Use: - Assessment/Plan All Active Problems Healthcare-associated pneumonia (Acute) Acute respiratory failure (Acute) COPD (chronic obstructive pulmonary disease) (Acute) CAD (coronary artery disease) (Acute) RECOMMENDATIONS: 1. Continue empiric antibiotics with Zosyn as ordered. 2. Continue diuretics 3. Continue propofol and fentanyl to maintain a RASS of -1 to 1. 4. Wean PEEP as tolerated. Goal to perform a spontaneous breathing trial by tomorrow morning. 5. Continue tube feeds and Pepcid for GI prophylaxis. 6. Start Lovenox for DVT prophylaxis 7. Continue scheduled bronchodilators. IMPRESSIONS: 1. Acute on chronic combined respiratory failure secondary to HCAP There is been some interval improvement in the patient's right-sided airspace disease noted on plain film chest x-ray this morning. We will plan to continue scheduled bronchodilators along with Zosyn. Given that the patient has a reported history of COPD and CHF, diuretics will be continued. The patient remains hemodynamically stable. Continue to wean PEEP as tolerated. Patient will likely be a candidate for a spontaneous breathing trial by tomorrow morning. Continue Pepcid for GI prophylaxis. Start Lovenox for DVT prophylaxis. 2. Acute on chronic systolic congestive heart failure/a flutter status post cardioversion/prolonged QT Patient with significant lower extremity edema and a history of systolic congestive heart failure. Patient is on Lasix therapy. Will continue with Lasix therapy for now. Patient also likely has an element of pulmonary hypertension that would benefit from diuresis. Okay to continue with aspirin and Plavix, but rate control has been held. Given patient's significantly prolonged QT, amiodarone will be discontinued. 3. Severe sepsis secondary to HCAP and E. coli cystitis Patient with large right-sided infiltrate and respiratory failure. Patient is on appropriate antibiotics. Attempt to limit IV hydration given patient's underlying congestive heart failure. Continue propofol and fentanyl to maintain a RASS of -1 to 1. 4. Diabetes mellitus type 2 Continue tube feeds along with sliding scale insulin coverage. 5. COPD/cor pulmonale/untreated sleep apnea Patient with extensive pulmonary issues at baseline. Patient has not been compliant with ANIBAL therapy and was on 10 mg of prednisone daily for palliative measures. If patient starts to develop lower blood pressures, may institute stress dose steroids. 6. Morbid obesity/stasis dermatitis/hyperlipidemia/hypertension/history of CVA/ CKD stage II/BPH/poor information Complicates care, management, recovery and prognosis. TIME: 40 minutes of critical care time, independent of procedures, was spent addressing the patient's acute on chronic combined respiratory failure, acute on chronic systolic heart failure, severe sepsis secondary to healthcare associated pneumonia and E. coli cystitis, review of all data and collaboration with the care team. ([id number]) Code Visit 9xxxx: [id number] Critical care first hour
[2018-04-11 06:26] LABS: Bedside Glucose 120 mg/dL (70-110)
[2018-04-11 07:18] LABS: Absolute Lymphocyte Count 1.08 X10^3/ul (0.83-4.51); Absolute Neutrophil Count 7.8 X10^3/uL (2.0-7.7); Basophil# 0.01 X10^3/uL; Basophil% 0.1 % (0-1); Eosinophil# 0.08 X10^3/uL; Eosinophils% 0.8 % (0-5); Hematocrit 36.7 % (40-54); Lymphocyte # 1.08 X10^3/ul (4.0); Lymphocyte % 10.7 % (19-41); Mean Corpuscular Hgb 27.2 pg (27.0-32.0); Mean Corpuscular Volume 90.8 fL (80-94); Mean Platelet Vol. 9.8 fl (6.2-12.0); Monocyte# 1.13 X10^3/uL; Monocyte% 11.2 % (0-10); Neutrophil # 7.76 X10^3/uL (2.7-7.7); Platelet Count 222 K/mm3 (150-450); RBC Distribution Width CV 15.9 % (11.6-14.6); RBC Distribution Width SD 52.6 fl (35.1-43.9); Red Blood Count 4.04 M/mm3 (4.6-6.2); White Blood Count 10.1 K/mm3 (4.4-11.0)
[2018-04-11 07:28] LABS: Anion Gap 2 (5-15); BUN 27 mg/dL (7-18); Calcium,Total 9.1 mg/dL (8.5-10.1); Chloride 102 mmol/L (98-107); Creatinine, Serum 1.35 mg/dL (0.70-1.30); EST Glomerular Filtration Rate 56 mL/min (>60); Est Glom Filt Rate - Afr Amer 68 mL/min (>60); Estimated Creatinine Clearance 60.67 ml/min; Glucose 124 mg/dL (74-106); Potassium 3.7 mmol/L (3.5-5.1); Sodium Level 143 mmol/L (136-145)
[2018-04-11 07:29] LABS: POSITIVE COUNT NO; POSITIVE DIFFERENTIAL NO; POSITIVE MORPHOLOGY NO
--- NOTE | 2018-04-11 08:25 | RAD_ITS ---
STUDY: X-RAY CHEST REASON FOR EXAM: Male, 62 years old. Shortness of breath TECHNIQUE: Single AP portable view of the chest. COMPARISON: 04/09/2018 FINDINGS: There is an endotracheal tube with the tip in the mid trachea. An enteric tube is seen coursing into the stomach. Cardiac monitoring leads overlie the chest. Right upper extremity PIC catheter is faintly seen, with the tip not visualized beyond the upper SVC. There is overall slightly improved aeration within the right lung, with continued opacity in the right mid and lower lobe. There is no demonstrated pleural abnormality. There is mild cardiac enlargement. Normal mediastinum and asaf. Normal visualized pulmonary arteries. Normal visualized aortic arch and descending thoracic aorta. There are diffuse degenerative changes of the visualized thoracic spine. Normal visualized ribs, clavicles, and shoulders. There is no demonstrated abnormality of the visualized soft tissue structures of the upper abdomen. RAD/Chest 1 View (Portable) IMPRESSION: Improving right-sided airspace disease. Life support tubes and catheters, as detailed above. Electronically Signed: Jim Gardner DO at 8:55 EDT Tel , Service support ,
[2018-04-11] MEDS: Famotidine 20 MG Tablet GT ×2 (10:41→22:18)
[2018-04-11] MEDS: Ferrous Sulfate 300 MG/5 ML UDC GT (10:42)
[2018-04-11] MEDS: Aspirin 81 MG TAB.CHEW GT (10:42)
[2018-04-11] MEDS: Clopidogrel Bisulfate 75 MG Tablet GT (10:43)
[2018-04-11] MEDS: Calcium (Elemental) 500 MG Tablet GT (10:43)
[2018-04-11] MEDS: Chlorhexidine 15 ML PO ×2 (10:45→22:18)
[2018-04-11] MEDS: CHLORHEXIDINE GLUC 2% CLOTH 1 EACH TOWELETTE TOPICAL (10:45)
[2018-04-11] MEDS: Furosemide 40 MG/4 ML Vial IV ×2 (10:45→22:18)
[2018-04-11] MEDS: Senna Tablet 2 TABLET GT ×2 (10:49→22:18)
[2018-04-11] MEDS: Enoxaparin 40 MG/0.4 ML Syringe SC (10:49)
[2018-04-11] MEDS: Vital AF 1.2 Cal Liquid 1,000 ML 25 ML GT (10:50)
[2018-04-11] MEDS: Polyethylene Glycol 3350 17 GM PACKET GT ×2 (10:50→22:18)
[2018-04-11 11:46] LABS: Bedside Glucose 108 mg/dL (70-110)
--- NOTE | 2018-04-11 17:00 | NURSING ---
education re chronic illness deferred till acute illness resolving
[2018-04-11 18:01] LABS: Bedside Glucose 115 mg/dL (70-110)
--- NOTE | 2018-04-11 20:15 | PCM.PROGNOTE ---
Patient Problems: Active and Suspected Problems Healthcare-associated pneumonia (Acute) Acute respiratory failure (Acute) COPD (chronic obstructive pulmonary disease) (Acute) CAD (coronary artery disease) (Acute) Subjective: Patient was seen and examined today, he currently remains on the ventilator at this time under sedation. Urine culture was positive for E. coli sensitive to all antibiotics tested - Physical Exam General: No apparent distress, Well developed, Well nourished HEENT: Atraumatic, Normocephalic Oral: Moist Mucosa Neck: Supple, No JVD, No Nuchal Rigidity, Trachea Midline, Thyroid Normal Size and Texture Lungs: Clear to auscultation, Normal air movement, No rhonchi, No wheeze, No rales Cardiovascular: Regular rate, Regular Rhythm, Normal S1, Normal S2, No murmurs, No Ectopic Activity Abdomen: Bowel Sounds Present, Soft, Non Tender, Non-Distended, No hernias noted Extremities: No clubbing, No cyanosis Neurological: Neuro grossly intact Psych/Mental Status: - - Patient is sedated on ventilator at this time Vital Signs Temp Pulse Resp BP Pulse Ox 99.1 F 51 L 16 126/58 H 92 04/11/18 19:00 04/11/18 20:10 04/11/18 20:10 04/11/18 19:00 04/11/18 19:00 Oxygen Flow Rate (L/min) 40 Oxygen Delivery Method Mechanical Ventilator Weight: 170.3 kg Body Mass Index (BMI) 49.2 Intake and Output for Last 24 Hours 04/09/18 04/10/18 04/11/18 23:59 23:59 23:59 Intake Total 1764 / 1764 1651.2 / 1651.2 2853 / 2853 Output Total 3375 / 3375 3700 / 3700 4750 / 4750 Balance -1611 / -1611 -2048.8 / -2048.8 -1897 / -1897 Microbiology Past 72 Hours 04/09/18 07:33 Gram Stain - Final Sputum, Induced/Lukens Respiratory Culture - Preliminary Culture exhibits no growth. Laboratory Tests Past 24 Hrs 04/11/18 04/11/18 07:00 07:00 WBC 10.1 RBC 4.04 L Hgb 11.0 L Hct 36.7 L MCV 90.8 MCH 27.2 MCHC 30.0 L RDW 15.9 H RDW Differential 52.6 H Plt Count 222 MPV 9.8 Immature Gran % (Auto) 0.200 Neut % (Auto) 77.0 H Lymph % (Auto) 10.7 L [place] % (Auto) 11.2 H Eos % (Auto) 0.8 Baso % (Auto) 0.1 Absolute Neuts (auto) 7.8 H Absolute Lymphs (auto) 1.08 Total Counted Not Reportable Sodium 143 Potassium 3.7 Chloride 102 Carbon Dioxide 39.0 H Anion Gap 2 L BUN 27 H Creatinine 1.35 H Estim Creat Clear Calc 60.67 Est GFR (MDRD) Af Amer 68 Est GFR (MDRD) Non-Af 56 L BUN/Creatinine Ratio 20.0 Glucose 124 H Calcium 9.1 POC Glucose 04/11/18 04/11/18 04/11/18 17:56 11:30 06:07 POC Glucose 115 H 108 120 H 04/10/18 23:01 POC Glucose 133 H Medical Necessity - Tobacco Use Smoking Status: Former smoker Tobacco Use: - Assessment/Plan All Active Problems Healthcare-associated pneumonia (Acute) Acute respiratory failure (Acute) COPD (chronic obstructive pulmonary disease) (Acute) CAD (coronary artery disease) (Acute) #1 acute on chronic combined respiratory failure-pulmonary medicine is managing the patient's ventilator #2 right-sided healthcare-acquired pneumonia-continue present antibiotic coverage, chest x-ray today showed improving right sided airspace disease, sputum cultures negative so far for pathogens #3 severe sepsis from community-acquired pneumonia #4 type 2 diabetes #5 chronic obstructive pulmonary disease #6 pulmonary hypertension #7 morbid obesity #8 chronic kidney disease stage II #9 tachycardia mediated cardiomyopathy-EF of 45% on JODY done on 09/07/17 #10 elevated troponins-etiology unclear at this point #11 probable coronary artery disease-patient refused catheterization during an earlier admission this year, cardiac enzymes were noted to be mildly abnormal at that time, transesophageal echocardiogram performed on 09/07/17 showed an EF of 45% #12 E. coli cystitis Code Visit Inpatient E&M: 64416 Subs Hosp L2
[2018-04-11] MEDS: 0.9% NaCl PICC Flush IV (22:18)
[2018-04-11] MEDS: Atorvastatin Calcium 40 MG Tablet GT (22:18)
[2018-04-11 23:51] LABS: Bedside Glucose 107 mg/dL (70-110)
[2018-04-12] VITALS (47 sets, daily range): BP systolic 132–182; BP diastolic 52–81; PULSE 51–94; RESP 15–116; TEMP 37.1–37.6; O2SAT 60–98
[2018-04-12] MEDS: Vital AF 1.2 Cal Liquid 1,000 ML 25 ML GT ×2 (00:33→17:32)
[2018-04-12] MEDS: Ipratropium/Albuterol Sulfate 3 ML AMPUL.NEB INHALATION ×6 (03:33→23:20)
[2018-04-12] MEDS: Piperacil/Tazobactam 3.375 GM/50 ML ML IV ×3 (05:17→21:56)
[2018-04-12] MEDS: CHLORHEXIDINE GLUC 2% CLOTH 1 EACH TOWELETTE TOPICAL (05:19)
[2018-04-12] MEDS: Albuterol 2.5 MG/3 ML VIAL.NEB. INHALATION (05:19)
[2018-04-12 05:26] LABS: Bedside Glucose 117 mg/dL (70-110)
[2018-04-12] MEDS: Propofol 10MG/Ml 1,000 MG/100 ML Bottle 5.343 MG CONT INF ×3 (06:16→23:06)
--- NOTE | 2018-04-12 06:40 | RAD_ITS ---
STUDY: X-RAY CHEST REASON FOR EXAM: Male, 62 years old. Shortness of breath. TECHNIQUE: Single AP portable view of the chest. COMPARISON: Comparison is made with prior study dated April 11, 2018. FINDINGS: An endotracheal tube is in situ. The tip is at 5.2 sinus proximal to the romulo. An orogastric tube is seen with the tip below the left hemidiaphragm. A right-sided PICC line is seen with the tip at the junction of the superior vena cava and right atrium. EKG electrodes are seen. Since prior examination, there has been progressive opacification of the right hemithorax which may represent a combination of infiltration and/or atelectasis. Central vascular congestion. Mild increased markings at the left lung base. This has improved as compared to prior study. There is mild cardiac enlargement. Normal mediastinum and asaf. Normal visualized pulmonary arteries. There is atherosclerotic tortuosity of the aortic arch and descending thoracic aorta. There are diffuse degenerative changes of the visualized thoracic spine. Normal visualized ribs, clavicles, and shoulders. There is no demonstrated abnormality of the visualized soft tissue structures of the upper abdomen. RAD/Chest 1 View (Portable) IMPRESSION: Progressive opacification of the right hemithorax. Improved aeration of the left lung base. Mild residual CHF. Electronically Signed: Clement Liu MD at 13:02 EDT Tel [phone], Service support ,
--- NOTE | 2018-04-12 06:55 | PCM.PN.INT ---
Subjective: The patient was seen and examined at the bedside this morning. Events from the last 24 hours have been reviewed. The patient is currently afebrile and a bit hypertensive. Although the patient's FiO2 had been weaned down to 40% overnight, upon sedation interruption this morning, the patient became exceedingly anxious/agitated upon attempting to have a bowel movement and subsequently desaturated. Nursing staff reported that a great deal of thick, purulent secretions were suctioned. The patient's FiO2 and PEEP both had to be increased to 70% and 10, respectively. He was placed back on sedation and transitioned back to assist control accordingly. Objective: The patient's most recent lab work, culture data and imaging studies have all been personally reviewed. Blood cultures have shown no growth to date. Sputum culture is pending. Urine culture was positive for greater than 100,000 colony-forming units of E. coli, which was pansensitive. General: - - Remains intubated, sedated and mechanically ventilated. Occasional double triggering noted on the ventilator. HEENT: Atraumatic, PERRLA, Normocephalic Oral: No Gingival or Mucosal Lesions/ Ulcerations, - - Endotracheal and OG tubes remain in place. Neck: Supple, No Nodes, Trachea Midline Lungs: No wheeze, No rales, Diminished, Rhonchi Cardiovascular: Normal S1, Normal S2, No murmurs, Bradycardic, No rub noted, No Gallop Abdomen: Bowel Sounds Present, Soft, Non Tender, Obese Extremities: No clubbing, No cyanosis, - - Bilateral lower extremity pitting edema present Skin: - - Lower extremity venous stasis dermatitis Musculoskeletal: No Tenderness to Palpation of Joints or Extremities Lymphatic: No Cervical, Supraclavicular, or Inguinal Adenopathy Neurological: - - No focal neurological deficits. Will arouse to verbal stimulation. Vital Signs Temp Pulse Resp BP Pulse Ox 99.4 F H 65 18 155/63 H 93 04/12/18 06:00 04/12/18 06:00 04/12/18 06:00 04/12/18 06:04/12/18 06:00 Oxygen Flow Rate (L/min) 40 Oxygen Delivery Method Mechanical Ventilator Weight: 368 lb 9.806 oz Body Mass Index (BMI) 49.2 Intake and Output for Last 24 Hours 07/29/18 07/30/18 07/31/18 23:59 23:59 23:59 Intake Total 1651.2 / 1651.2 3744.6 / 3744.6 1237.2 / 1237.2 Output Total 3700 / 3700 5550 / 5550 1300 / 1300 Balance -2048.8 / -2048.8 -1805.4 / -1805.4 -62.8 / -62.8 Labs (Last 48 Hours) 04/10/18 04/10/18 04/10/18 05:20 12:17 17:38 WBC RBC Hgb Hct MCV MCH MCHC RDW RDW Differential Plt Count MPV Immature Gran % (Auto) Neut % (Auto) Lymph % (Auto) [place] % (Auto) Eos % (Auto) Baso % (Auto) Absolute Neuts (auto) Absolute Lymphs (auto) Total Counted Sodium Potassium Chloride Carbon Dioxide Anion Gap BUN Creatinine Estim Creat Clear Calc Est GFR (MDRD) Af Amer Est GFR (MDRD) Non-Af BUN/Creatinine Ratio Glucose Calcium Phosphorus 4.5 Magnesium 2.4 POC Glucose 132 H 113 H 04/10/18 04/11/18 04/11/18 23:01 06:07 07:00 WBC 10.1 RBC 4.04 L Hgb 11.0 L Hct 36.7 L MCV 90.8 MCH 27.2 MCHC 30.0 L RDW 15.9 H RDW Differential 52.6 H Plt Count 222 MPV 9.8 Immature Gran % (Auto) 0.200 Neut % (Auto) 77.0 H Lymph % (Auto) 10.7 L [place] % (Auto) 11.2 H Eos % (Auto) 0.8 Baso % (Auto) 0.1 Absolute Neuts (auto) 7.8 H Absolute Lymphs (auto) 1.08 Total Counted Not Reportable Sodium Potassium Chloride Carbon Dioxide Anion Gap BUN Creatinine Estim Creat Clear Calc Est GFR (MDRD) Af Amer Est GFR (MDRD) Non-Af BUN/Creatinine Ratio Glucose Calcium Phosphorus Magnesium POC Glucose 133 H 120 H 04/11/18 04/11/18 04/11/18 07:00 11:30 17:56 WBC RBC Hgb Hct MCV MCH MCHC RDW RDW Differential Plt Count MPV Immature Gran % (Auto) Neut % (Auto) Lymph % (Auto) [place] % (Auto) Eos % (Auto) Baso % (Auto) Absolute Neuts (auto) Absolute Lymphs (auto) Total Counted Sodium 143 Potassium 3.7 Chloride 102 Carbon Dioxide 39.0 H Anion Gap 2 L BUN 27 H Creatinine 1.35 H Estim Creat Clear Calc 60.67 Est GFR (MDRD) Af Amer 68 Est GFR (MDRD) Non-Af 56 L BUN/Creatinine Ratio 20.0 Glucose 124 H Calcium 9.1 Phosphorus Magnesium POC Glucose 108 115 H 04/11/18 04/12/18 23:45 05:16 WBC RBC Hgb Hct MCV MCH MCHC RDW RDW Differential Plt Count MPV Immature Gran % (Auto) Neut % (Auto) Lymph % (Auto) [place] % (Auto) Eos % (Auto) Baso % (Auto) Absolute Neuts (auto) Absolute Lymphs (auto) Total Counted Sodium Potassium Chloride Carbon Dioxide Anion Gap BUN Creatinine Estim Creat Clear Calc Est GFR (MDRD) Af Amer Est GFR (MDRD) Non-Af BUN/Creatinine Ratio Glucose Calcium Phosphorus Magnesium POC Glucose 107 117 H Microbiology 04/09/18 07:33 Sputum, Induced/Lukens Gram Stain - Final 04/09/18 07:33 Sputum, Induced/Lukens Respiratory Culture - Preliminary Culture exhibits no growth. Clinical Impression(s) from Imaging Studies Brain CT 04/09/18 03:53 IMPRESSION: Chronic involutional changes of the brain. There is no acute intracranial pathology. Electronically Signed: Porsche Jacinto MD at 6:45 EDT , Service support , Chest X-Ray 04/09/18 04:35 IMPRESSION: Lines as above. Predominant right-sided airspace disease possibly inflammatory/infectious in nature. Electronically Signed: Porsche Jacinto MD at 5:34 EDT , Service support , KUB X-Ray 04/09/18 04:35 IMPRESSION: Enteric tube in good position. Right greater than left airspace disease. Electronically Signed: Porsche Jacinto MD at 5:36 EDT , Service support , Chest X-Ray 04/09/18 07:40 IMPRESSION: 1. Appropriate positioning of endotracheal tube. 2. Unchanged appearance to bilateral airspace disease, right greater than left. Electronically Signed: Fiona Serrano MD at 8:26 EDT , Service support , Chest X-Ray 04/11/18 08:25 IMPRESSION: Improving right-sided airspace disease. Life support tubes and catheters, as detailed above. Electronically Signed: Jim Gardner DO at 8:55 EDT Tel , Service support , Medical Necessity - Tobacco Use Smoking Status: Former smoker Tobacco Use: - Assessment/Plan All Active Problems Healthcare-associated pneumonia (Acute) Acute respiratory failure (Acute) COPD (chronic obstructive pulmonary disease) (Acute) CAD (coronary artery disease) (Acute) RECOMMENDATIONS: 1. Obtain repeat plain film chest x-ray this morning. 2. Resend sputum for culture. 3. Check strep and urine Legionella antigens, along with full respiratory viral panel. 4. Recheck conference of metabolic profile and CBC with differential this morning. 5. Check troponin, BNP and surface echocardiogram. 6. Continue to wean FiO2 and PEEP to maintain an oxygen saturation at or above 90%. 7. Start IV Solu-Medrol 40 mg every 8 hours. IMPRESSIONS: 1. Acute on chronic combined respiratory failure secondary to HCAP Continue scheduled bronchodilators and broad-spectrum antibiotics. Will obtain repeat plain film chest x-ray this morning. Continue to wean supplemental oxygen as tolerated. Given the patient's history of COPD, Solu-Medrol 40 mg every 8 hours will be started. A cardiac workup including echocardiogram, BNP and troponin will also be undertaken. Plan to continue current diuretic regimen. Continue Pepcid for GI prophylaxis and Lovenox for DVT prophylaxis. Continue tube feeds at goal. 2. Acute on chronic systolic congestive heart failure/a flutter status post cardioversion/prolonged QT Patient with significant lower extremity edema and a history of systolic congestive heart failure. Patient is on Lasix therapy. Will continue with Lasix therapy for now. Patient also likely has an element of pulmonary hypertension that would benefit from diuresis. Okay to continue with aspirin and Plavix, but rate control has been held. Given patient's significantly prolonged QT, amiodarone was discontinued. A repeat surface echocardiogram is currently pending. 3. Severe sepsis secondary to HCAP and E. coli cystitis Patient with large right-sided infiltrate and respiratory failure. Patient is on appropriate antibiotics. Attempt to limit IV hydration given patient's underlying congestive heart failure. Continue propofol and fentanyl to maintain a RASS of -1 to 1. Check strep and urine Legionella antigens along with respiratory viral panel, given the continuous tenuous nature of the patient's respiratory status. 4. Diabetes mellitus type 2 Continue tube feeds along with sliding scale insulin coverage. Anticipate increases in blood glucose levels, given initiation of corticosteroids. 5. COPD/cor pulmonale/untreated sleep apnea Patient with extensive pulmonary issues at baseline. Patient has not been compliant with ANIBAL therapy and was on 10 mg of prednisone daily for palliative measures. If patient starts to develop lower blood pressures, may institute stress dose steroids. 6. Morbid obesity/stasis dermatitis/hyperlipidemia/hypertension/history of CVA/CKD stage II/BPH/poor information Complicates care, management, recovery and prognosis. Continue tube feeds as ordered. The patient will require evaluation by physical therapy, once his oxygenation has improved. TIME: 50 minutes of critical care time, independent of procedures, was spent addressing the patient's acute on chronic combined respiratory failure, acute on chronic systolic heart failure, severe sepsis secondary to healthcare associated pneumonia and E. coli cystitis, review of all data and collaboration with the care team. ([id number]) Code Visit 9xxxx: [id number] Critical care first hour
--- NOTE | 2018-04-12 07:00 | ECHOCS_ITS ---
Reason For Study: DYSPNEA/SOB Procedure This was a 2D Doppler, Color Flow transthoracic echocardiogram. The study was technically difficult. Contrast injection was performed. Exam performed portable in ICU/CCU. Left Ventricle Segmental dysfunction with preserved ejection fraction (see wall motion). The estimated ejection fraction is 55 %. Septal motion consistent with IVCD. There is evidence of diastolic dysfunction. Mid-inferoseptal : Hypokinetic. Mid-anteroseptal : Hypokinetic. Right Ventricle Normal RV size. Normal systolic function. Atria The left atrium is mildly enlarged. Normal right atrium. No doppler evidence for ASD. Mitral Valve Mitral valve not well visualized. Tricuspid Valve The tricuspid valve is not well visualized. Aortic Valve Trisinus/trileaflet aortic valve. Mild focal aortic valve calcification. Mild aortic stenosis. Pulmonic Valve The pulmonic valve is not well visualized. Great Vessels The aortic root is not well visualized. Pericardium/Pleural No pericardial effusion. Medication Diluted definity 3ml given slow IV push to enhance endocardial definition. MMode/2D Measurements & Calculations LVOT diam: 2.0 cm LAV(MOD-sp2): 96.1 ml LVOT area: 3.2 cm2 Time Measurements MV dec time: 0.30 sec Doppler Measurements & Calculations MV E max meño: 101.2 cm/sec Lat Peak E' Meño: 6.7 cm/sec Med Peak E' Meño: 5.6 cm/sec MV A max meño: 91.2 cm/sec E/E' lat: 15.1 E/E' med: 18.0 MV E/A: 1.1 Ao V2 max: 254.5 cm/sec LV V1 max: 146.3 cm/sec SV(LVOT): 97.5 ml Ao max P.9 mmHg LV V1 max P.6 mmHg Ao V2 mean: 178.6 cm/sec LV V1 mean P.8 mmHg Ao mean P.3 mmHg LV V1 mean: 88.4 cm/sec Ao V2 VTI: 49.6 cm LV V1 VTI: 30.7 cm RADHA(I,D): 2.0 cm2 RADHA(V,D): 1.8 cm2 PA V2 max: 233.4 cm/sec Interpretation Summary The study was technically difficult. Contrast injection was performed. Segmental dysfunction with preserved ejection fraction (see wall motion). The estimated ejection fraction is 55 %. Septal motion consistent with IVCD. The left atrium is mildly enlarged. Mild focal aortic valve calcification. Mild aortic stenosis. There is evidence of diastolic dysfunction. Ordering Physician: Bj Zhong D.O. Referring Physician: LETICIA KENADLL Performed By: Sulma Hernandez RDCS
--- NOTE | 2018-04-12 07:01 | PN_ITS ---
Subjective: The patient was seen and examined at the bedside this morning. Events from the last 24 hours have been reviewed. The patient is currently afebrile and a bit hypertensive. Although the patient's FiO2 had been weaned down to 40% overnight , upon sedation interruption this morning, the patient became exceedingly anxious/agitated upon attempting to have a bowel movement and subsequently desaturated. Nursing staff reported that a great deal of thick, purulent secretions were suctioned. The patient's FiO2 and PEEP both had to be increased to 70% and 10, respectively. He was placed back on sedation and transitioned back to assist control accordingly. Objective: The patient's most recent lab work, culture data and imaging studies have all been personally reviewed. Blood cultures have shown no growth to date. Sputum culture is pending. Urine culture was positive for greater than 100,000 colony- forming units of E. coli, which was pansensitive. General: - - Remains intubated, sedated and mechanically ventilated. Occasional double triggering noted on the ventilator. HEENT: Atraumatic, PERRLA, Normocephalic Oral: No Gingival or Mucosal Lesions/ Ulcerations, - - Endotracheal and OG tubes remain in place. Neck: Supple, No Nodes, Trachea Midline Lungs: No wheeze, No rales, Diminished, Rhonchi Cardiovascular: Normal S1, Normal S2, No murmurs, Bradycardic, No rub noted, No Gallop Abdomen: Bowel Sounds Present, Soft, Non Tender, Obese Extremities: No clubbing, No cyanosis, - - Bilateral lower extremity pitting edema present Skin: - - Lower extremity venous stasis dermatitis Musculoskeletal: No Tenderness to Palpation of Joints or Extremities Lymphatic: No Cervical, Supraclavicular, or Inguinal Adenopathy Neurological: - - No focal neurological deficits. Will arouse to verbal stimulation. Vital Signs Temp Pulse Resp BP Pulse Ox 99.4 F H 65 18 155/63 H 93 04/12/18 06:00 04/12/18 06:00 04/12/18 06:00 04/12/18 06:04/12/18 06:00 Oxygen Flow Rate (L/min) 40 Oxygen Delivery Method Mechanical Ventilator Weight: 368 lb 9.806 oz Body Mass Index (BMI) 49.2 Intake and Output for Last 24 Hours 07/29/18 07/30/18 07/31/18 23:59 23:59 23:59 Intake Total 1651.2 / 1651.2 3744.6 / 3744.6 1237.2 / 1237.2 Output Total 3700 / 3700 5550 / 5550 1300 / 1300 Balance -2048.8 / -2048.8 -1805.4 / -1805.4 -62.8 / -62.8 Labs (Last 48 Hours) 04/10/18 04/10/18 04/10/18 05:20 12:17 17:38 WBC RBC Hgb Hct MCV MCH MCHC RDW RDW Differential Plt Count MPV Immature Gran % (Auto) Neut % (Auto) Lymph % (Auto) Brooke % (Auto) Eos % (Auto) Baso % (Auto) Absolute Neuts (auto) Absolute Lymphs (auto) Total Counted Sodium Potassium Chloride Carbon Dioxide Anion Gap BUN Creatinine Estim Creat Clear Calc Est GFR (MDRD) Af Amer Est GFR (MDRD) Non-Af BUN/Creatinine Ratio Glucose Calcium Phosphorus 4.5 Magnesium 2.4 POC Glucose 132 H 113 H 04/10/18 04/11/18 04/11/18 23:01 06:07 07:00 WBC 10.1 RBC 4.04 L Hgb 11.0 L Hct 36.7 L MCV 90.8 MCH 27.2 MCHC 30.0 L RDW 15.9 H RDW Differential 52.6 H Plt Count 222 MPV 9.8 Immature Gran % (Auto) 0.200 Neut % (Auto) 77.0 H Lymph % (Auto) 10.7 L Brooke % (Auto) 11.2 H Eos % (Auto) 0.8 Baso % (Auto) 0.1 Absolute Neuts (auto) 7.8 H Absolute Lymphs (auto) 1.08 Total Counted Not Reportable Sodium Potassium Chloride Carbon Dioxide Anion Gap BUN Creatinine Estim Creat Clear Calc Est GFR (MDRD) Af Amer Est GFR (MDRD) Non-Af BUN/Creatinine Ratio Glucose Calcium Phosphorus Magnesium POC Glucose 133 H 120 H 04/11/18 04/11/18 04/11/18 07:00 11:30 17:56 WBC RBC Hgb Hct MCV MCH MCHC RDW RDW Differential Plt Count MPV Immature Gran % (Auto) Neut % (Auto) Lymph % (Auto) Brooke % (Auto) Eos % (Auto) Baso % (Auto) Absolute Neuts (auto) Absolute Lymphs (auto) Total Counted Sodium 143 Potassium 3.7 Chloride 102 Carbon Dioxide 39.0 H Anion Gap 2 L BUN 27 H Creatinine 1.35 H Estim Creat Clear Calc 60.67 Est GFR (MDRD) Af Amer 68 Est GFR (MDRD) Non-Af 56 L BUN/Creatinine Ratio 20.0 Glucose 124 H Calcium 9.1 Phosphorus Magnesium POC Glucose 108 115 H 04/11/18 04/12/18 23:45 05:16 WBC RBC Hgb Hct MCV MCH MCHC RDW RDW Differential Plt Count MPV Immature Gran % (Auto) Neut % (Auto) Lymph % (Auto) Brooke % (Auto) Eos % (Auto) Baso % (Auto) Absolute Neuts (auto) Absolute Lymphs (auto) Total Counted Sodium Potassium Chloride Carbon Dioxide Anion Gap BUN Creatinine Estim Creat Clear Calc Est GFR (MDRD) Af Amer Est GFR (MDRD) Non-Af BUN/Creatinine Ratio Glucose Calcium Phosphorus Magnesium POC Glucose 107 117 H Microbiology 04/09/18 07:33 Sputum, Induced/Lukens Gram Stain - Final 04/09/18 07:33 Sputum, Induced/Lukens Respiratory Culture - Preliminary Culture exhibits no growth. Clinical Impression(s) from Imaging Studies Brain CT 04/09/18 03:53 IMPRESSION: Chronic involutional changes of the brain. There is no acute intracranial pathology. Electronically Signed: Porsche Jacinto MD at 6:45 EDT , Service support , Chest X-Ray 04/09/18 04:35 IMPRESSION: Lines as above. Predominant right-sided airspace disease possibly inflammatory/infectious in nature. Electronically Signed: Porsche Jacinto MD at 5:34 EDT , Service support , KUB X-Ray 04/09/18 04:35 IMPRESSION: Enteric tube in good position. Right greater than left airspace disease. Electronically Signed: Porsche Jacinto MD at 5:36 EDT , Service support , Chest X-Ray 04/09/18 07:40 IMPRESSION: 1. Appropriate positioning of endotracheal tube. 2. Unchanged appearance to bilateral airspace disease, right greater than left. Electronically Signed: Fiona Serrano MD at 8:26 EDT , Service support , Chest X-Ray 04/11/18 08:25 IMPRESSION: Improving right-sided airspace disease. Life support tubes and catheters, as detailed above. Electronically Signed: Jim Gardner DO at 8:55 EDT Tel , Service support , Medical Necessity - Tobacco Use Smoking Status: Former smoker Tobacco Use: - Assessment/Plan All Active Problems Healthcare-associated pneumonia (Acute) Acute respiratory failure (Acute) COPD (chronic obstructive pulmonary disease) (Acute) CAD (coronary artery disease) (Acute) RECOMMENDATIONS: 1. Obtain repeat plain film chest x-ray this morning. 2. Resend sputum for culture. 3. Check strep and urine Legionella antigens, along with full respiratory viral panel. 4. Recheck conference of metabolic profile and CBC with differential this morning. 5. Check troponin, BNP and surface echocardiogram. 6. Continue to wean FiO2 and PEEP to maintain an oxygen saturation at or above 90%. 7. Start IV Solu-Medrol 40 mg every 8 hours. IMPRESSIONS: 1. Acute on chronic combined respiratory failure secondary to HCAP Continue scheduled bronchodilators and broad-spectrum antibiotics. Will obtain repeat plain film chest x-ray this morning. Continue to wean supplemental oxygen as tolerated. Given the patient's history of COPD, Solu-Medrol 40 mg every 8 hours will be started. A cardiac workup including echocardiogram, BNP and troponin will also be undertaken. Plan to continue current diuretic regimen. Continue Pepcid for GI prophylaxis and Lovenox for DVT prophylaxis. Continue tube feeds at goal. 2. Acute on chronic systolic congestive heart failure/a flutter status post cardioversion/prolonged QT Patient with significant lower extremity edema and a history of systolic congestive heart failure. Patient is on Lasix therapy. Will continue with Lasix therapy for now. Patient also likely has an element of pulmonary hypertension that would benefit from diuresis. Okay to continue with aspirin and Plavix, but rate control has been held. Given patient's significantly prolonged QT, amiodarone was discontinued. A repeat surface echocardiogram is currently pending. 3. Severe sepsis secondary to HCAP and E. coli cystitis Patient with large right-sided infiltrate and respiratory failure. Patient is on appropriate antibiotics. Attempt to limit IV hydration given patient's underlying congestive heart failure. Continue propofol and fentanyl to maintain a RASS of -1 to 1. Check strep and urine Legionella antigens along with respiratory viral panel, given the continuous tenuous nature of the patient 's respiratory status. 4. Diabetes mellitus type 2 Continue tube feeds along with sliding scale insulin coverage. Anticipate increases in blood glucose levels, given initiation of corticosteroids. 5. COPD/cor pulmonale/untreated sleep apnea Patient with extensive pulmonary issues at baseline. Patient has not been compliant with ANIBAL therapy and was on 10 mg of prednisone daily for palliative measures. If patient starts to develop lower blood pressures, may institute stress dose steroids. 6. Morbid obesity/stasis dermatitis/hyperlipidemia/hypertension/history of CVA/ CKD stage II/BPH/poor information Complicates care, management, recovery and prognosis. Continue tube feeds as ordered. The patient will require evaluation by physical therapy, once his oxygenation has improved. TIME: 50 minutes of critical care time, independent of procedures, was spent addressing the patient's acute on chronic combined respiratory failure, acute on chronic systolic heart failure, severe sepsis secondary to healthcare associated pneumonia and E. coli cystitis, review of all data and collaboration with the care team. ([id number]) Code Visit 9xxxx: [id number] Critical care first hour
[2018-04-12 07:54] LABS: Absolute Lymphocyte Count 0.96 X10^3/ul (0.83-4.51); Absolute Neutrophil Count 10.4 X10^3/uL (2.0-7.7); Basophil# 0.03 X10^3/uL; Basophil% 0.2 % (0-1); Eosinophil# 0.27 X10^3/uL; Eosinophils% 2.1 % (0-5); Hematocrit 37.5 % (40-54); Hemoglobin 11.7 g/dl (13.0-16.5); Lymphocyte # 0.96 X10^3/ul (4.0); Lymphocyte % 7.5 % (19-41); Mean Corp Hgb Conc 31.2 g/gl (32-36); Mean Corpuscular Hgb 28.1 pg (27.0-32.0); Mean Corpuscular Volume 89.9 fL (80-94); Mean Platelet Vol. 9.8 fl (6.2-12.0); Monocyte# 1.07 X10^3/uL; Monocyte% 8.4 % (0-10); Neutrophil # 10.39 X10^3/uL (2.7-7.7); Neutrophil % 81.5 % (47-70); POSITIVE COUNT NO; POSITIVE DIFFERENTIAL NO; POSITIVE MORPHOLOGY NO; Platelet Count 217 K/mm3 (150-450); RBC Distribution Width SD 51.8 fl (35.1-43.9); Red Blood Count 4.17 M/mm3 (4.6-6.2); White Blood Count 12.8 K/mm3 (4.4-11.0)
[2018-04-12 08:11] LABS: AST(SGOT) 13 U/L (15-37); Alanine Aminotransfer ALT/SGPT 18 U/L (16-61); Alkaline Phosphatase 76 U/L (45-117); Anion Gap 4 (5-15); BUN 26 mg/dL (7-18); BUN/Creat Ratio 21.1 RATIO (10-20); Calcium,Total 8.7 mg/dL (8.5-10.1); Chloride 100 mmol/L (98-107); Creatinine, Serum 1.23 mg/dL (0.70-1.30); EST Glomerular Filtration Rate 63 mL/min (>60); Est Glom Filt Rate - Afr Amer 76 mL/min (>60); Estimated Creatinine Clearance 66.59 ml/min; Globulin 3.1 g/dL (2.2-4.2); Glucose 122 mg/dL (74-106); Potassium 3.6 mmol/L (3.5-5.1); Protein, Total 6.1 g/dL (6.4-8.2); Sodium Level 142 mmol/L (136-145)
--- NOTE | 2018-04-12 08:43 | NURSING ---
Echo being done at bedside
[2018-04-12] MEDS: Aspirin 81 MG TAB.CHEW GT (09:28)
[2018-04-12] MEDS: 0.9% NaCl Peripheral Flush Adult/Peds IV ×2 (09:28→22:01)
[2018-04-12] MEDS: Ferrous Sulfate 300 MG/5 ML UDC GT (09:28)
[2018-04-12] MEDS: Enoxaparin 40 MG/0.4 ML Syringe SC (09:29)
[2018-04-12] MEDS: Famotidine 20 MG Tablet GT ×2 (09:29→21:51)
[2018-04-12] MEDS: Furosemide 40 MG/4 ML Vial IV ×2 (09:29→21:51)
[2018-04-12] MEDS: Calcium (Elemental) 500 MG Tablet GT (09:29)
[2018-04-12] MEDS: Polyethylene Glycol 3350 17 GM PACKET GT ×2 (09:29→21:52)
[2018-04-12] MEDS: Chlorhexidine 15 ML PO ×2 (09:30→22:00)
[2018-04-12] MEDS: Clopidogrel Bisulfate 75 MG Tablet GT (09:30)
[2018-04-12] MEDS: Senna Tablet 2 TABLET GT ×2 (09:30→21:51)
[2018-04-12 09:34] LABS: BNP,B-Type NATRIURETIC PEPTIDE 101.1 pg/mL (0-100)
--- NOTE | 2018-04-12 10:44 | NURSING ---
Chronic teaching deferred d/t pt sedated on ventilator and no family present
[2018-04-12] MEDS: Insulin Lispro 100 UNIT/ML INSULN.PEN SQ ×2 (11:40→17:31)
[2018-04-12 11:41] LABS: Bedside Glucose 187 mg/dL (70-110)
[2018-04-12 17:40] LABS: Bedside Glucose 173 mg/dL (70-110)
--- NOTE | 2018-04-12 19:38 | PN_ITS ---
Patient Problems: Active and Suspected Problems Healthcare-associated pneumonia (Acute) Acute respiratory failure (Acute) COPD (chronic obstructive pulmonary disease) (Acute) CAD (coronary artery disease) (Acute) Subjective: Patient seen and examined today, pulmonary was unable to extubate patient today - Physical Exam General: No apparent distress, Well developed, - - Patient is sedated and on the ventilator at this time HEENT: Atraumatic, Normocephalic Oral: Moist Mucosa Neck: No JVD, Trachea Midline, Thyroid Normal Size and Texture Lungs: Clear to auscultation, Normal air movement, No rhonchi, No wheeze, No rales Cardiovascular: Regular rate, Regular Rhythm, Normal S1, Normal S2, No murmurs, PMI Normal, No rub noted, No Gallop Abdomen: Bowel Sounds Present, Soft, Non Tender, Non-Distended, Obese, No hernias noted Extremities: No clubbing, No cyanosis Neurological: Cranial nerves II-XII grossly intact, Neuro grossly intact, - - Patient is sedated on the ventilator Psych/Mental Status: - - Patient is sedated on the ventilator Vital Signs Temp Pulse Resp BP Pulse Ox 99.3 F H 64 17 156/68 H 94 04/12/18 18:00 04/12/18 19:16 04/12/18 19:00 04/12/18 19:00 04/12/18 19:00 Oxygen Flow Rate (L/min) 40 Oxygen Delivery Method Mechanical Ventilator Weight: 167.2 kg Body Mass Index (BMI) 49.2 Intake and Output for Last 24 Hours 04/10/18 04/11/18 04/12/18 23:59 23:59 23:59 Intake Total 1651.2 / 1651.2 3744.6 / 3744.6 2784.2 / 2784.2 Output Total 3700 / 3700 5550 / 5550 4850 / 4850 Balance -2048.8 / -2048.8 -1805.4 / -1805.4 -2065.8 / -2065.8 Microbiology Past 72 Hours 04/12/18 07:33 Gram Stain - Final Sputum, Induced/Lukens 04/12/18 07:33 Respiratory Panel (PCR) - Final Mucosa - Nasopharyngeal 04/09/18 07:33 Gram Stain - Final Sputum, Induced/Lukens Respiratory Culture - Final Culture exhibits no growth. 04/12/18 07:35 Streptococcus pneumoniae Antigen (M - Final Urine Catheter - [place] 04/12/18 07:35 Legionella Antigen - Final Urine Catheter - [place] Laboratory Tests Past 24 Hrs 04/12/18 04/12/18 04/12/18 07:38 07:38 07:38 WBC 12.8 H RBC 4.17 L Hgb 11.7 L Hct 37.5 L MCV 89.9 MCH 28.1 MCHC 31.2 L RDW 16.0 H RDW Differential 51.8 H Plt Count 217 MPV 9.8 Immature Gran % (Auto) 0.300 Neut % (Auto) 81.5 H Lymph % (Auto) 7.5 L Burnett % (Auto) 8.4 Eos % (Auto) 2.1 Baso % (Auto) 0.2 Absolute Neuts (auto) 10.4 H Absolute Lymphs (auto) 0.96 Total Counted Not Reportable Sodium 142 Potassium 3.6 Chloride 100 Carbon Dioxide 38.0 H Anion Gap 4 L BUN 26 H Creatinine 1.23 Estim Creat Clear Calc 66.59 Est GFR (MDRD) Af Amer 76 Est GFR (MDRD) Non-Af 63 BUN/Creatinine Ratio 21.1 H Glucose 122 H Calcium 8.7 Total Bilirubin 0.60 AST 13 L ALT 18 Alkaline Phosphatase 76 Troponin I 0.079 H B-Natriuretic Peptide Total Protein 6.1 L Albumin 3.0 L Globulin 3.1 Albumin/Globulin Ratio 1.0 04/12/18 07:38 WBC RBC Hgb Hct MCV MCH MCHC RDW RDW Differential Plt Count MPV Immature Gran % (Auto) Neut % (Auto) Lymph % (Auto) Burnett % (Auto) Eos % (Auto) Baso % (Auto) Absolute Neuts (auto) Absolute Lymphs (auto) Total Counted Sodium Potassium Chloride Carbon Dioxide Anion Gap BUN Creatinine Estim Creat Clear Calc Est GFR (MDRD) Af Amer Est GFR (MDRD) Non-Af BUN/Creatinine Ratio Glucose Calcium Total Bilirubin AST ALT Alkaline Phosphatase Troponin I B-Natriuretic Peptide 101.1 H Total Protein Albumin Globulin Albumin/Globulin Ratio POC Glucose 04/12/18 04/12/18 04/12/18 17:28 11:37 05:16 POC Glucose 173 H 187 H 117 H 04/11/18 23:45 POC Glucose 107 Medical Necessity - Tobacco Use Smoking Status: Former smoker Tobacco Use: - Assessment/Plan All Active Problems Healthcare-associated pneumonia (Acute) Acute respiratory failure (Acute) COPD (chronic obstructive pulmonary disease) (Acute) CAD (coronary artery disease) (Acute) #1 acute on chronic combined respiratory failure-pulmonary medicine is managing the patient's ventilator, a trial of weaning today failed #2 right-sided healthcare-acquired pneumonia-continue present antibiotic coverage #3 severe sepsis from community-acquired pneumonia #4 type 2 diabetes #5 chronic obstructive pulmonary disease #6 pulmonary hypertension #7 morbid obesity #8 chronic kidney disease stage II #9 tachycardia mediated cardiomyopathy-EF of 45% on JODY done on 09/07/17 #10 elevated troponins-etiology unclear at this point #11 probable coronary artery disease-patient refused catheterization during an earlier admission this year, cardiac enzymes were noted to be mildly abnormal at that time, transesophageal echocardiogram performed on 09/07/17 showed an EF of 45% #12 E. coli cystitis, continue current antibiotic coverage Code Visit Inpatient E&M: 67608 Subs Hosp L2
[2018-04-12] MEDS: Atorvastatin Calcium 40 MG Tablet GT (21:51)
[2018-04-13] VITALS (38 sets, daily range): BP systolic 118–170; BP diastolic 54–81; PULSE 58–89; RESP 12–22; TEMP 36.8–37.7; O2SAT 90–99
[2018-04-13] MEDS: Insulin Lispro 100 UNIT/ML INSULN.PEN SQ ×2 (00:39→06:34)
[2018-04-13 00:46] LABS: Bedside Glucose 177 mg/dL (70-110)
[2018-04-13] MEDS: Ipratropium/Albuterol Sulfate 3 ML AMPUL.NEB INHALATION ×5 (03:20→18:59)
[2018-04-13 05:28] LABS: Absolute Lymphocyte Count 0.29 X10^3/ul (0.83-4.51); Absolute Neutrophil Count 10.5 X10^3/uL (2.0-7.7); Basophil# 0.01 X10^3/uL; Basophil% 0.1 % (0-1); Hematocrit 38.5 % (40-54); Hemoglobin 12.4 g/dl (13.0-16.5); Lymphocyte # 0.29 X10^3/ul (4.0); Lymphocyte % 2.6 % (19-41); Mean Corp Hgb Conc 32.2 g/gl (32-36); Mean Corpuscular Volume 86.9 fL (80-94); Mean Platelet Vol. 10.2 fl (6.2-12.0); Monocyte# 0.39 X10^3/uL; Monocyte% 3.5 % (0-10); Neutrophil # 10.46 X10^3/uL (2.7-7.7); Neutrophil % 93.3 % (47-70); Platelet Count 240 K/mm3 (150-450); RBC Distribution Width CV 15.1 % (11.6-14.6); RBC Distribution Width SD 47.2 fl (35.1-43.9); Red Blood Count 4.43 M/mm3 (4.6-6.2); White Blood Count 11.2 K/mm3 (4.4-11.0)
[2018-04-13 05:32] LABS: Differential Indicated SCAN CRITERIA MET; POSITIVE COUNT NO; POSITIVE DIFFERENTIAL YES; POSITIVE MORPHOLOGY NO
[2018-04-13 05:35] LABS: Anion Gap 7 (5-15); BUN 32 mg/dL (7-18); Calcium,Total 8.9 mg/dL (8.5-10.1); Chloride 99 mmol/L (98-107); Creatinine, Serum 1.23 mg/dL (0.70-1.30); EST Glomerular Filtration Rate 63 mL/min (>60); Est Glom Filt Rate - Afr Amer 76 mL/min (>60); Estimated Creatinine Clearance 66.59 ml/min; Glucose 179 mg/dL (74-106); Potassium 4.1 mmol/L (3.5-5.1); Sodium Level 141 mmol/L (136-145)
[2018-04-13] MEDS: 0.9% NaCl Peripheral Flush Adult/Peds IV (06:30)
[2018-04-13] MEDS: Piperacil/Tazobactam 3.375 GM/50 ML ML IV ×3 (06:30→21:39)
[2018-04-13 06:41] LABS: Bedside Glucose 164 mg/dL (70-110)
--- NOTE | 2018-04-13 07:10 | PN_ITS ---
Subjective: The patient was seen and examined at the bedside this morning. Events from the last 24 hours have been reviewed. The patient is currently afebrile, hemodynamically stable and maintaining appropriate oxygen saturations on CPAP trial with an FiO2 of 40%. The patient is currently overall net -8.7 L for the admission. He has done well this morning on a spontaneous breathing trial. He is alert, cooperative and following commands appropriately. Only scant secretions were noted by nursing staff and respiratory therapy. Objective: The patient's most recent lab work, culture data and imaging studies have all been personally reviewed. Strep and urine Legionella antigens were both negative. Repeat sputum culture dated April 12 is currently pending. Respiratory viral panel was negative. Blood cultures have shown no growth to date. Urine culture was positive for greater than 100,000 colony-forming units of E. coli, which was pansensitive. Surface echocardiogram revealed segmental dysfunction with preserved ejection fraction of 55%. General: - - Remains intubated and mechanically ventilated. Currently tolerating CPAP mode mechanical ventilation. HEENT: Atraumatic, PERRLA, Normocephalic Oral: No Gingival or Mucosal Lesions/ Ulcerations, - - Endotracheal and OG tubes remain in place. Neck: Supple, No Nodes, Trachea Midline Lungs: No wheeze, No rales, Diminished, Rhonchi Cardiovascular: Regular rate, Regular Rhythm, Normal S1, Normal S2, No murmurs Abdomen: Bowel Sounds Present, Soft, Non Tender, Obese Extremities: No clubbing, No cyanosis, Edema Skin: - - No significant change from previous. Musculoskeletal: No Tenderness to Palpation of Joints or Extremities Lymphatic: No Cervical, Supraclavicular, or Inguinal Adenopathy Neurological: Neuro grossly intact, - - Moves all extremities spontaneously. Alert and following commands appropriately. Vital Signs Temp Pulse Resp BP Pulse Ox 99.1 F 73 13 169/68 H 94 04/13/18 05:00 04/13/18 06:00 04/13/18 06:00 04/13/18 06:04/13/18 06:00 Oxygen Flow Rate (L/min) 40 Oxygen Delivery Method Mechanical Ventilator Weight: 368 lb 6.279 oz Body Mass Index (BMI) 49.2 Intake and Output for Last 24 Hours 04/11/18 04/12/18 04/13/18 23:59 23:59 23:59 Intake Total 3744.6 / 3744.6 2904.2 / 2904.2 1550.8 / 1550.8 Output Total 5550 / 5550 4850 / 4850 2850 / 2850 Balance -1805.4 / -1805.4 -1945.8 / -1945.8 -1299.2 / -1299.2 Labs (Last 48 Hours) 04/11/18 04/11/18 04/11/18 07:00 07:00 11:30 WBC 10.1 RBC 4.04 L Hgb 11.0 L Hct 36.7 L MCV 90.8 MCH 27.2 MCHC 30.0 L RDW 15.9 H RDW Differential 52.6 H Plt Count 222 MPV 9.8 Immature Gran % (Auto) 0.200 Neut % (Auto) 77.0 H Lymph % (Auto) 10.7 L Otero % (Auto) 11.2 H Eos % (Auto) 0.8 Baso % (Auto) 0.1 Absolute Neuts (auto) 7.8 H Absolute Lymphs (auto) 1.08 Total Counted Not Reportable Sodium 143 Potassium 3.7 Chloride 102 Carbon Dioxide 39.0 H Anion Gap 2 L BUN 27 H Creatinine 1.35 H Estim Creat Clear Calc 60.67 Est GFR (MDRD) Af Amer 68 Est GFR (MDRD) Non-Af 56 L BUN/Creatinine Ratio 20.0 Glucose 124 H Calcium 9.1 Total Bilirubin AST ALT Alkaline Phosphatase Troponin I B-Natriuretic Peptide Total Protein Albumin Globulin Albumin/Globulin Ratio POC Glucose 108 04/11/18 04/11/18 04/12/18 17:56 23:45 05:16 WBC RBC Hgb Hct MCV MCH MCHC RDW RDW Differential Plt Count MPV Immature Gran % (Auto) Neut % (Auto) Lymph % (Auto) Otero % (Auto) Eos % (Auto) Baso % (Auto) Absolute Neuts (auto) Absolute Lymphs (auto) Total Counted Sodium Potassium Chloride Carbon Dioxide Anion Gap BUN Creatinine Estim Creat Clear Calc Est GFR (MDRD) Af Amer Est GFR (MDRD) Non-Af BUN/Creatinine Ratio Glucose Calcium Total Bilirubin AST ALT Alkaline Phosphatase Troponin I B-Natriuretic Peptide Total Protein Albumin Globulin Albumin/Globulin Ratio POC Glucose 115 H 107 117 H 04/12/18 04/12/18 04/12/18 07:38 07:38 07:38 WBC 12.8 H RBC 4.17 L Hgb 11.7 L Hct 37.5 L MCV 89.9 MCH 28.1 MCHC 31.2 L RDW 16.0 H RDW Differential 51.8 H Plt Count 217 MPV 9.8 Immature Gran % (Auto) 0.300 Neut % (Auto) 81.5 H Lymph % (Auto) 7.5 L Otero % (Auto) 8.4 Eos % (Auto) 2.1 Baso % (Auto) 0.2 Absolute Neuts (auto) 10.4 H Absolute Lymphs (auto) 0.96 Total Counted Not Reportable Sodium 142 Potassium 3.6 Chloride 100 Carbon Dioxide 38.0 H Anion Gap 4 L BUN 26 H Creatinine 1.23 Estim Creat Clear Calc 66.59 Est GFR (MDRD) Af Amer 76 Est GFR (MDRD) Non-Af 63 BUN/Creatinine Ratio 21.1 H Glucose 122 H Calcium 8.7 Total Bilirubin 0.60 AST 13 L ALT 18 Alkaline Phosphatase 76 Troponin I 0.079 H B-Natriuretic Peptide Total Protein 6.1 L Albumin 3.0 L Globulin 3.1 Albumin/Globulin Ratio 1.0 POC Glucose 04/12/18 04/12/18 04/12/18 07:38 11:37 17:28 WBC RBC Hgb Hct MCV MCH MCHC RDW RDW Differential Plt Count MPV Immature Gran % (Auto) Neut % (Auto) Lymph % (Auto) Otero % (Auto) Eos % (Auto) Baso % (Auto) Absolute Neuts (auto) Absolute Lymphs (auto) Total Counted Sodium Potassium Chloride Carbon Dioxide Anion Gap BUN Creatinine Estim Creat Clear Calc Est GFR (MDRD) Af Amer Est GFR (MDRD) Non-Af BUN/Creatinine Ratio Glucose Calcium Total Bilirubin AST ALT Alkaline Phosphatase Troponin I B-Natriuretic Peptide 101.1 H Total Protein Albumin Globulin Albumin/Globulin Ratio POC Glucose 187 H 173 H 04/13/18 04/13/18 04/13/18 00:37 05:00 05:00 WBC 11.2 H RBC 4.43 L Hgb 12.4 L Hct 38.5 L MCV 86.9 MCH 28.0 MCHC 32.2 RDW 15.1 H RDW Differential 47.2 H Plt Count 240 MPV 10.2 Immature Gran % (Auto) 0.500 Neut % (Auto) 93.3 H Lymph % (Auto) 2.6 L Otero % (Auto) 3.5 Eos % (Auto) 0.0 Baso % (Auto) 0.1 Absolute Neuts (auto) 10.5 H Absolute Lymphs (auto) 0.29 L Total Counted Not Reportable Sodium 141 Potassium 4.1 Chloride 99 Carbon Dioxide 35.0 H Anion Gap 7 BUN 32 H Creatinine 1.23 Estim Creat Clear Calc 66.59 Est GFR (MDRD) Af Amer 76 Est GFR (MDRD) Non-Af 63 BUN/Creatinine Ratio 26.0 H Glucose 179 H Calcium 8.9 Total Bilirubin AST ALT Alkaline Phosphatase Troponin I B-Natriuretic Peptide Total Protein Albumin Globulin Albumin/Globulin Ratio POC Glucose 177 H 04/13/18 06:27 WBC RBC Hgb Hct MCV MCH MCHC RDW RDW Differential Plt Count MPV Immature Gran % (Auto) Neut % (Auto) Lymph % (Auto) Otero % (Auto) Eos % (Auto) Baso % (Auto) Absolute Neuts (auto) Absolute Lymphs (auto) Total Counted Sodium Potassium Chloride Carbon Dioxide Anion Gap BUN Creatinine Estim Creat Clear Calc Est GFR (MDRD) Af Amer Est GFR (MDRD) Non-Af BUN/Creatinine Ratio Glucose Calcium Total Bilirubin AST ALT Alkaline Phosphatase Troponin I B-Natriuretic Peptide Total Protein Albumin Globulin Albumin/Globulin Ratio POC Glucose 164 H Microbiology 04/12/18 07:33 Sputum, Induced/[place]ukens Gram Stain - Final 04/12/18 07:33 Mucosa - Nasopharyngeal Respiratory Panel (PCR) - Final 04/09/18 07:33 Sputum, Induced/[place]ukens Gram Stain - Final 04/09/18 07:33 Sputum, Induced/[place]ukens Respiratory Culture - Final Culture exhibits no growth. 04/12/18 07:35 Urine Catheter - [place] Streptococcus pneumoniae Antigen (M - Final 04/12/18 07:35 Urine Catheter - [place] Legionella Antigen - Final Clinical Impression(s) from Imaging Studies Brain CT 04/09/18 03:53 IMPRESSION: Chronic involutional changes of the brain. There is no acute intracranial pathology. Electronically Signed: Porsche Jacinto MD at 6:45 EDT , Service support , Chest X-Ray 04/09/18 04:35 IMPRESSION: Lines as above. Predominant right-sided airspace disease possibly inflammatory/infectious in nature. Electronically Signed: Porsche Jacinto MD at 5:34 EDT , Service support , KUB X-Ray 04/09/18 04:35 IMPRESSION: Enteric tube in good position. Right greater than left airspace disease. Electronically Signed: Porsche Jacinto MD at 5:36 EDT , Service support , Chest X-Ray 04/09/18 07:40 IMPRESSION: 1. Appropriate positioning of endotracheal tube. 2. Unchanged appearance to bilateral airspace disease, right greater than left. Electronically Signed: Fiona Serrano MD at 8:26 EDT , Service support , Chest X-Ray 04/11/18 08:25 IMPRESSION: Improving right-sided airspace disease. Life support tubes and catheters, as detailed above. Electronically Signed: Jim Gardner DO at 8:55 EDT Tel , Service support , Chest X-Ray 04/12/18 06:40 IMPRESSION: Progressive opacification of the right hemithorax. Improved aeration of the left lung base. Mild residual CHF. Electronically Signed: Clement Liu MD at 13:02 EDT Tel [phone], Service support , Medical Necessity - Tobacco Use Smoking Status: Former smoker Tobacco Use: - Assessment/Plan All Active Problems Healthcare-associated pneumonia (Acute) Acute respiratory failure (Acute) COPD (chronic obstructive pulmonary disease) (Acute) CAD (coronary artery disease) (Acute) RECOMMENDATIONS: 1. Proceed with a trial of extubation this morning. Once extubated, wean supplemental oxygen to maintain saturations at or above 88%. 2. Perform bedside swallow evaluation and advance diet accordingly. 3. If the patient passes a swallow evaluation, antibiotics and IV steroids can be transitioned to PO. 4. Restart home losartan. 5. Transition from IV Lasix to PO 40 mg twice daily. 6. Encourage incentive spirometer use and mobilize patient as tolerated. 7. Physical therapy evaluation. IMPRESSIONS: 1. Acute on chronic combined respiratory failure secondary to HCAP Continue scheduled bronchodilators and antibiotics. The patient is currently a candidate for a trial of extubation this morning. He has a baseline 4 L/min supplemental oxygen requirement. Once extubated, wean supplemental oxygen to maintain saturations at or above 88%. Bedside swallow evaluation can be completed. If the patient passes, transition from IV steroids to prednisone and IV Lasix to PO regimen. Plan to complete a 7 day treatment course of antibiotics. Continue to encourage incentive spirometer use and mobilize patient as tolerated. 2. Acute on chronic systolic congestive heart failure/a flutter status post cardioversion/prolonged QT Patient with significant lower extremity edema and a history of systolic congestive heart failure. Continue Lasix as ordered. Patient also likely has an element of pulmonary hypertension that would benefit from diuresis. Okay to continue with aspirin and Plavix, but rate control has been held. Given patient 's significantly prolonged QT, amiodarone was discontinued. 3. Severe sepsis secondary to HCAP and E. coli cystitis Patient with large right-sided infiltrate and respiratory failure. Patient is on appropriate antibiotics. Plan to complete a 7 day treatment course. 4. Diabetes mellitus type 2 Continue Accu-Cheks and sliding scale insulin coverage. 5. COPD/cor pulmonale/untreated sleep apnea Patient with extensive pulmonary issues at baseline. Patient has not been compliant with ANIBAL therapy and was on 10 mg of prednisone daily for palliative measures. 6. Morbid obesity/stasis dermatitis/hyperlipidemia/hypertension/history of CVA/ CKD stage II/BPH/poor information Complicates care, management, recovery and prognosis. Physical therapy to work with patient today. Okay to restart home losartan for blood pressure control. TIME: 40 minutes of critical care time, independent of procedures, was spent addressing the patient's acute on chronic combined respiratory failure, acute on chronic systolic heart failure, severe sepsis secondary to healthcare associated pneumonia and E. coli cystitis, review of all data and collaboration with the care team. ([id number]) Code Visit 9xxxx: [id number] Critical care first hour
[2018-04-13] MEDS: Acetaminophen 325 MG Tablet 650 MG PO (09:36)
[2018-04-13] MEDS: Ferrous Sulfate 325 MG Tablet PO (09:37)
[2018-04-13] MEDS: Aspirin 81 MG TAB.CHEW PO (09:37)
[2018-04-13] MEDS: Calcium (Elemental) 500 MG Tablet PO (09:37)
[2018-04-13] MEDS: Clopidogrel Bisulfate 75 MG Tablet PO (09:38)
[2018-04-13] MEDS: Famotidine 20 MG Tablet PO ×2 (09:38→21:38)
[2018-04-13] MEDS: Enoxaparin 40 MG/0.4 ML Syringe SC (09:38)
[2018-04-13] MEDS: CHLORHEXIDINE GLUC 2% CLOTH 1 EACH TOWELETTE TOPICAL (09:39)
[2018-04-13] MEDS: Furosemide 40 MG Tablet PO ×2 (09:39→16:59)
[2018-04-13] MEDS: Losartan Potassium 50 MG Tablet PO (10:48)
[2018-04-13] MEDS: predniSONE 20 MG Tablet 40 MG PO (12:07)
[2018-04-13] MEDS: 0.9% NaCl IVPB Med Flush (250 mL) 15 ML IV (13:45)
--- NOTE | 2018-04-13 19:41 | PCM.PROGNOTE ---
Patient Problems: Active and Suspected Problems Healthcare-associated pneumonia (Acute) Acute respiratory failure (Acute) COPD (chronic obstructive pulmonary disease) (Acute) CAD (coronary artery disease) (Acute) Subjective: Patient seen and examined today, he was extubated earlier today, he appears comfortable on nasal cannula O2 at this time - Physical Exam General: Alert, Oriented x3, Cooperative, No apparent distress, Well developed, Well nourished HEENT: Atraumatic, PERRLA, EOMI, Normocephalic Oral: Moist Mucosa Neck: Supple, No JVD, No Nuchal Rigidity, Trachea Midline, Thyroid Normal Size and Texture Lungs: Clear to auscultation, Normal air movement, No rhonchi, No wheeze, No rales Cardiovascular: Regular rate, Regular Rhythm, Normal S1, Normal S2, No murmurs, No Ectopic Activity, PMI Normal, No rub noted, No Gallop Abdomen: Bowel Sounds Present, Soft, Non Tender, Non-Distended, Obese, No hernias noted Extremities: No clubbing, No cyanosis Neurological: Cranial nerves II-XII grossly intact, Neuro grossly intact, Muscle tone normal, Sensory exam intact to light touch and pain, Coordination normal Psych/Mental Status: Normal Affect, Appropriate, Alert and oriented to time, place, person, mood and affect Vital Signs Temp Pulse Resp BP Pulse Ox 99.1 F 66 17 132/68 H 99 04/13/18 18:00 04/13/18 18:00 04/13/18 18:00 04/13/18 18:00 04/13/18 18:00 Oxygen Flow Rate (L/min) 4 Oxygen Delivery Method Nasal Cannula Weight: 167.1 kg Body Mass Index (BMI) 49.2 Intake and Output for Last 24 Hours 04/11/18 04/12/18 04/13/18 23:59 23:59 23:59 Intake Total 3744.6 / 3744.6 2904.2 / 2904.2 2582.8 / 2582.8 Output Total 5550 / 5550 4850 / 4850 4900 / 4900 Balance -1805.4 / -1805.4 -1945.8 / -1945.8 -2317.2 / -2317.2 Microbiology Past 72 Hours 04/12/18 07:33 Gram Stain - Final Sputum, Induced/Lukens Respiratory Culture - Preliminary Culture exhibits no growth. 04/12/18 07:33 Respiratory Panel (PCR) - Final Mucosa - Nasopharyngeal 04/09/18 07:33 Gram Stain - Final Sputum, Induced/Lukens Respiratory Culture - Final Culture exhibits no growth. 04/12/18 07:35 Streptococcus pneumoniae Antigen (M - Final Urine Catheter - [facility] 04/12/18 07:35 Legionella Antigen - Final Urine Catheter - [facility] Laboratory Tests Past 24 Hrs 04/13/18 04/13/18 05:00 05:00 WBC 11.2 H RBC 4.43 L Hgb 12.4 L Hct 38.5 L MCV 86.9 MCH 28.0 MCHC 32.2 RDW 15.1 H RDW Differential 47.2 H Plt Count 240 MPV 10.2 Immature Gran % (Auto) 0.500 Neut % (Auto) 93.3 H Lymph % (Auto) 2.6 L [place] % (Auto) 3.5 Eos % (Auto) 0.0 Baso % (Auto) 0.1 Absolute Neuts (auto) 10.5 H Absolute Lymphs (auto) 0.29 L Total Counted Not Reportable Sodium 141 Potassium 4.1 Chloride 99 Carbon Dioxide 35.0 H Anion Gap 7 BUN 32 H Creatinine 1.23 Estim Creat Clear Calc 66.59 Est GFR (MDRD) Af Amer 76 Est GFR (MDRD) Non-Af 63 BUN/Creatinine Ratio 26.0 H Glucose 179 H Calcium 8.9 POC Glucose 04/13/18 04/13/18 06:27 00:37 POC Glucose 164 H 177 H Medical Necessity - Tobacco Use Smoking Status: Former smoker Tobacco Use: - Assessment/Plan All Active Problems Healthcare-associated pneumonia (Acute) Acute respiratory failure (Acute) COPD (chronic obstructive pulmonary disease) (Acute) CAD (coronary artery disease) (Acute) #1 acute on chronic combined respiratory failure-now on nasal cannula O2 #2 right-sided healthcare-acquired pneumonia-continue present antibiotic coverage #3 severe sepsis from community-acquired pneumonia #4 type 2 diabetes #5 chronic obstructive pulmonary disease #6 pulmonary hypertension #7 morbid obesity #8 chronic kidney disease stage II #9 tachycardia mediated cardiomyopathy-patient's EF on his echocardiogram on 04/12/18 was 55% #10 elevated troponins-etiology unclear at this point #11 probable coronary artery disease-patient refused catheterization during an earlier admission this year, cardiac enzymes were noted to be mildly abnormal at that time, transesophageal echocardiogram performed on 09/07/17 showed an EF of 45% #12 E. coli cystitis-continue present antibiotic coverage Code Visit Inpatient E&M: 87855 Subs Hosp L2
[2018-04-13] MEDS: Atorvastatin Calcium 40 MG Tablet PO (21:38)
[2018-04-14] VITALS (25 sets, daily range): BP systolic 125–172; BP diastolic 54–78; PULSE 58–77; RESP 15–24; TEMP 36.3–37.1; O2SAT 93–99
[2018-04-14] MEDS: Phenol/Sodium Phenolate 180ML 5 SPRAY MM (00:41)
[2018-04-14] MEDS: Acetaminophen 325 MG Tablet 650 MG PO ×2 (00:43→12:14)
[2018-04-14 05:11] LABS: Absolute Lymphocyte Count 0.52 X10^3/ul (0.83-4.51); Absolute Neutrophil Count 10.7 X10^3/uL (2.0-7.7); Basophil# 0.01 X10^3/uL; Basophil% 0.1 % (0-1); Eosinophil# 0.01 X10^3/uL; Eosinophils% 0.1 % (0-5); Hematocrit 35.7 % (40-54); Hemoglobin 11.4 g/dl (13.0-16.5); Lymphocyte # 0.52 X10^3/ul (4.0); Lymphocyte % 4.1 % (19-41); Mean Corp Hgb Conc 31.9 g/gl (32-36); Mean Corpuscular Hgb 28.1 pg (27.0-32.0); Mean Corpuscular Volume 88.1 fL (80-94); Mean Platelet Vol. 10.2 fl (6.2-12.0); Monocyte# 1.32 X10^3/uL; Monocyte% 10.4 % (0-10); Neutrophil % 84.7 % (47-70); Platelet Count 224 K/mm3 (150-450); RBC Distribution Width CV 15.5 % (11.6-14.6); RBC Distribution Width SD 49.9 fl (35.1-43.9); Red Blood Count 4.05 M/mm3 (4.6-6.2); White Blood Count 12.6 K/mm3 (4.4-11.0)
[2018-04-14 05:14] LABS: Differential Indicated SCAN CRITERIA MET; POSITIVE COUNT NO; POSITIVE DIFFERENTIAL YES; POSITIVE MORPHOLOGY NO
[2018-04-14 05:16] LABS: Anion Gap 7 (5-15); BUN 33 mg/dL (7-18); BUN/Creat Ratio 27.5 RATIO (10-20); Calcium,Total 8.9 mg/dL (8.5-10.1); Chloride 104 mmol/L (98-107); EST Glomerular Filtration Rate 65 mL/min (>60); Est Glom Filt Rate - Afr Amer 78 mL/min (>60); Estimated Creatinine Clearance 68.26 ml/min; Glucose 127 mg/dL (74-106); Potassium 3.6 mmol/L (3.5-5.1); Sodium Level 146 mmol/L (136-145)
[2018-04-14] MEDS: CHLORHEXIDINE GLUC 2% CLOTH 1 EACH TOWELETTE TOPICAL (06:03)
[2018-04-14] MEDS: Piperacil/Tazobactam 3.375 GM/50 ML ML IV (06:03)
[2018-04-14] MEDS: Ipratropium/Albuterol Sulfate 3 ML AMPUL.NEB INHALATION ×5 (06:56→22:53)
--- NOTE | 2018-04-14 07:15 | PCM.PN.INT ---
Subjective: The patient was seen and examined at the bedside this morning. Events from the last 24 hours have been reviewed. The patient is currently afebrile, hemodynamically stable and maintaining appropriate oxygen saturations on his baseline 4 L/min via nasal cannula. The patient is now overall net -10.4 L for the admission. Creatinine remains stable. The patient has done well from a respiratory perspective, following extubation yesterday. No overnight issues were identified. Breathing has improved. The patient is noncompliant with the use of home BiPAP therapy. He does follow with Dr. Tello on an outpatient basis. Objective: The patient's most recent lab work, culture data and imaging studies have all been personally reviewed. Strep and urine Legionella antigens were both negative. Repeat sputum culture dated April 12 is currently pending. Respiratory viral panel was negative. Blood cultures have shown no growth to date. Urine culture was positive for greater than 100,000 colony-forming units of E. coli, which was pansensitive. Surface echocardiogram revealed segmental dysfunction with preserved ejection fraction of 55%. General: Alert, Oriented x3, Cooperative, No apparent distress HEENT: Atraumatic, PERRLA, Normocephalic Oral: No Gingival or Mucosal Lesions/ Ulcerations Neck: Supple, No Nodes, Trachea Midline Lungs: No rhonchi, No wheeze, No rales, Diminished Cardiovascular: Regular rate, Regular Rhythm, Normal S1, Normal S2, No murmurs Abdomen: Bowel Sounds Present, Soft, Non Tender, Obese Extremities: No clubbing, No cyanosis, Edema Skin: - - No significant change from previous. Musculoskeletal: No Tenderness to Palpation of Joints or Extremities Lymphatic: No Cervical, Supraclavicular, or Inguinal Adenopathy Neurological: Neuro grossly intact Psych/Mental Status: Alert and oriented to time, place, person, mood and affect Vital Signs Temp Pulse Resp BP Pulse Ox 97.8 F 62 16 162/74 H 98 04/14/18 06:00 04/14/18 06:57 04/14/18 06:57 04/14/18 06:00 04/14/18 06:57 Oxygen Flow Rate (L/min) 4 Oxygen Delivery Method Nasal Cannula Weight: 359 lb 9.183 oz Body Mass Index (BMI) 49.2 Intake and Output for Last 24 Hours 07/31/18 08/01/18 08/02/18 23:59 23:59 23:59 Intake Total 2904.2 / 2904.2 2582.8 / 2582.8 682 / 682 Output Total 4850 / 4850 4900 / 4900 1450 / 1450 Balance -1945.8 / -1945.8 -2317.2 / -2317.2 -768 / -768 Labs (Last 48 Hours) 04/12/18 04/12/18 04/12/18 07:38 07:38 07:38 WBC 12.8 H RBC 4.17 L Hgb 11.7 L Hct 37.5 L MCV 89.9 MCH 28.1 MCHC 31.2 L RDW 16.0 H RDW Differential 51.8 H Plt Count 217 MPV 9.8 Immature Gran % (Auto) 0.300 Neut % (Auto) 81.5 H Lymph % (Auto) 7.5 L [place] % (Auto) 8.4 Eos % (Auto) 2.1 Baso % (Auto) 0.2 Absolute Neuts (auto) 10.4 H Absolute Lymphs (auto) 0.96 Total Counted Not Reportable Sodium 142 Potassium 3.6 Chloride 100 Carbon Dioxide 38.0 H Anion Gap 4 L BUN 26 H Creatinine 1.23 Estim Creat Clear Calc 66.59 Est GFR (MDRD) Af Amer 76 Est GFR (MDRD) Non-Af 63 BUN/Creatinine Ratio 21.1 H Glucose 122 H Calcium 8.7 Total Bilirubin 0.60 AST 13 L ALT 18 Alkaline Phosphatase 76 Troponin I 0.079 H B-Natriuretic Peptide Total Protein 6.1 L Albumin 3.0 L Globulin 3.1 Albumin/Globulin Ratio 1.0 POC Glucose 04/12/18 04/12/18 04/12/18 07:38 11:37 17:28 WBC RBC Hgb Hct MCV MCH MCHC RDW RDW Differential Plt Count MPV Immature Gran % (Auto) Neut % (Auto) Lymph % (Auto) [place] % (Auto) Eos % (Auto) Baso % (Auto) Absolute Neuts (auto) Absolute Lymphs (auto) Total Counted Sodium Potassium Chloride Carbon Dioxide Anion Gap BUN Creatinine Estim Creat Clear Calc Est GFR (MDRD) Af Amer Est GFR (MDRD) Non-Af BUN/Creatinine Ratio Glucose Calcium Total Bilirubin AST ALT Alkaline Phosphatase Troponin I B-Natriuretic Peptide 101.1 H Total Protein Albumin Globulin Albumin/Globulin Ratio POC Glucose 187 H 173 H 04/13/18 04/13/18 04/13/18 00:37 05:00 05:00 WBC 11.2 H RBC 4.43 L Hgb 12.4 L Hct 38.5 L MCV 86.9 MCH 28.0 MCHC 32.2 RDW 15.1 H RDW Differential 47.2 H Plt Count 240 MPV 10.2 Immature Gran % (Auto) 0.500 Neut % (Auto) 93.3 H Lymph % (Auto) 2.6 L [place] % (Auto) 3.5 Eos % (Auto) 0.0 Baso % (Auto) 0.1 Absolute Neuts (auto) 10.5 H Absolute Lymphs (auto) 0.29 L Total Counted Not Reportable Sodium 141 Potassium 4.1 Chloride 99 Carbon Dioxide 35.0 H Anion Gap 7 BUN 32 H Creatinine 1.23 Estim Creat Clear Calc 66.59 Est GFR (MDRD) Af Amer 76 Est GFR (MDRD) Non-Af 63 BUN/Creatinine Ratio 26.0 H Glucose 179 H Calcium 8.9 Total Bilirubin AST ALT Alkaline Phosphatase Troponin I B-Natriuretic Peptide Total Protein Albumin Globulin Albumin/Globulin Ratio POC Glucose 177 H 04/13/18 04/14/18 04/14/18 06:27 04:22 04:22 WBC 12.6 H RBC 4.05 L Hgb 11.4 L Hct 35.7 L MCV 88.1 MCH 28.1 MCHC 31.9 L RDW 15.5 H RDW Differential 49.9 H Plt Count 224 MPV 10.2 Immature Gran % (Auto) 0.600 Neut % (Auto) 84.7 H Lymph % (Auto) 4.1 L [place] % (Auto) 10.4 H Eos % (Auto) 0.1 Baso % (Auto) 0.1 Absolute Neuts (auto) 10.7 H Absolute Lymphs (auto) 0.52 L Total Counted Not Reportable Sodium 146 H Potassium 3.6 Chloride 104 Carbon Dioxide 35.0 H Anion Gap 7 BUN 33 H Creatinine 1.20 Estim Creat Clear Calc 68.26 Est GFR (MDRD) Af Amer 78 Est GFR (MDRD) Non-Af 65 BUN/Creatinine Ratio 27.5 H Glucose 127 H Calcium 8.9 Total Bilirubin AST ALT Alkaline Phosphatase Troponin I B-Natriuretic Peptide Total Protein Albumin Globulin Albumin/Globulin Ratio POC Glucose 164 H Microbiology 04/12/18 07:33 Sputum, Induced/Lukens Gram Stain - Final 04/12/18 07:33 Sputum, Induced/Lukens Respiratory Culture - Preliminary Culture exhibits no growth. 04/12/18 07:33 Mucosa - Nasopharyngeal Respiratory Panel (PCR) - Final 04/09/18 07:33 Sputum, Induced/Lukens Gram Stain - Final 04/09/18 07:33 Sputum, Induced/Lukens Respiratory Culture - Final Culture exhibits no growth. 04/12/18 07:35 Urine Catheter - [place] Streptococcus pneumoniae Antigen (M - Final 04/12/18 07:35 Urine Catheter - [place] Legionella Antigen - Final Clinical Impression(s) from Imaging Studies Brain CT 04/09/18 03:53 IMPRESSION: Chronic involutional changes of the brain. There is no acute intracranial pathology. Electronically Signed: Porsche Jacinto MD at 6:45 EDT , Service support , Chest X-Ray 04/09/18 04:35 IMPRESSION: Lines as above. Predominant right-sided airspace disease possibly inflammatory/infectious in nature. Electronically Signed: Porsche Jacinto MD at 5:34 EDT , Service support , KUB X-Ray 04/09/18 04:35 IMPRESSION: Enteric tube in good position. Right greater than left airspace disease. Electronically Signed: Porsche Jacinto MD at 5:36 EDT , Service support , Chest X-Ray 04/09/18 07:40 IMPRESSION: 1. Appropriate positioning of endotracheal tube. 2. Unchanged appearance to bilateral airspace disease, right greater than left. Electronically Signed: Fiona Serrano MD at 8:26 EDT , Service support , Chest X-Ray 04/11/18 08:25 IMPRESSION: Improving right-sided airspace disease. Life support tubes and catheters, as detailed above. Electronically Signed: Jim Gardner DO at 8:55 EDT Tel , Service support , Chest X-Ray 04/12/18 06:40 IMPRESSION: Progressive opacification of the right hemithorax. Improved aeration of the left lung base. Mild residual CHF. Electronically Signed: Clement Liu MD at 13:02 EDT Tel [phone], Service support , Medical Necessity - Tobacco Use Smoking Status: Former smoker Tobacco Use: - Assessment/Plan All Active Problems Healthcare-associated pneumonia (Acute) Acute respiratory failure (Acute) COPD (chronic obstructive pulmonary disease) (Acute) CAD (coronary artery disease) (Acute) RECOMMENDATIONS: 1. Transition from IV Zosyn to p.o. Levaquin to complete a 7 day treatment course. 2. Continue prednisone by mouth with plans for a taper at discharge (40 mg ?3 days, 20 mg ?3 days, then resume baseline 10 mg daily dose). 3. Continue current antihypertensive regimen and diuretics. 4. Continue scheduled bronchodilators while awake. 5. Encourage incentive spirometer use and mobilize patient as tolerated. 6. Perform walking oximetry study prior to consideration for discharge from the hospital. 7. The patient needs to be seen by her nurse practitioner in the pulmonary medicine clinic within 2 weeks of his discharge from the hospital. IMPRESSIONS: 1. Acute on chronic combined respiratory failure secondary to HCAP Continue scheduled bronchodilators while awake. IV Zosyn will be transitioned to p.o. Levaquin to complete a 7 day treatment course. The patient is currently maintaining appropriate oxygen saturations on his baseline 4 L/min supplemental oxygen requirement. Would plan to continue prednisone 40 mg daily with taper as outlined above. Continue scheduled Lasix regimen. Continue to encourage incentive spirometer use and mobilize patient as tolerated. Perform walking oximetry study prior to consideration for discharge from the hospital. The patient would benefit from a follow-up office visit with our nurse practitioner in the pulmonary medicine clinic within 2 weeks of his discharge from the hospital. 2. Acute on chronic systolic congestive heart failure/a flutter status post cardioversion/prolonged QT Patient with significant lower extremity edema and a history of systolic congestive heart failure. Continue Lasix as ordered. Patient also likely has an element of pulmonary hypertension that would benefit from diuresis. Okay to continue with aspirin and Plavix, but rate control has been held. Given patient's significantly prolonged QT, amiodarone was discontinued. Would plan to recheck EKG today to reassess QT. If stabilized, the patient's home diltiazem and Norvasc and be restarted. 3. Severe sepsis secondary to HCAP and E. coli cystitis Patient with large right-sided infiltrate and respiratory failure. Patient is on appropriate antibiotics. Plan to complete a 7 day treatment course, as noted above. 4. Diabetes mellitus type 2 Continue Accu-Cheks and sliding scale insulin coverage. 5. COPD/cor pulmonale/untreated sleep apnea Patient with extensive pulmonary issues at baseline. Patient has not been compliant with ANIBAL therapy and was on 10 mg of prednisone daily for palliative measures. 6. Morbid obesity/stasis dermatitis/hyperlipidemia/hypertension/history of CVA/CKD stage II/BPH/poor information Complicates care, management, recovery and prognosis. Physical therapy to work with patient today. This note was generated with [employer] dictation software. It may contain incorrect words, spelling, and punctuation that were not noted in checking the note before signing. DISPOSITION: The patient is medically stable for transfer out of the intensive care unit. Code Visit Inpatient E&M: [id number] [facility] L3
--- NOTE | 2018-04-14 07:21 | PN_ITS ---
Subjective: The patient was seen and examined at the bedside this morning. Events from the last 24 hours have been reviewed. The patient is currently afebrile, hemodynamically stable and maintaining appropriate oxygen saturations on his baseline 4 L/min via nasal cannula. The patient is now overall net -10.4 L for the admission. Creatinine remains stable. The patient has done well from a respiratory perspective, following extubation yesterday. No overnight issues were identified. Breathing has improved. The patient is noncompliant with the use of home BiPAP therapy. He does follow with Dr. Tello on an outpatient basis. Objective: The patient's most recent lab work, culture data and imaging studies have all been personally reviewed. Strep and urine Legionella antigens were both negative. Repeat sputum culture dated April 12 is currently pending. Respiratory viral panel was negative. Blood cultures have shown no growth to date. Urine culture was positive for greater than 100,000 colony-forming units of E. coli, which was pansensitive. Surface echocardiogram revealed segmental dysfunction with preserved ejection fraction of 55%. General: Alert, Oriented x3, Cooperative, No apparent distress HEENT: Atraumatic, PERRLA, Normocephalic Oral: No Gingival or Mucosal Lesions/ Ulcerations Neck: Supple, No Nodes, Trachea Midline Lungs: No rhonchi, No wheeze, No rales, Diminished Cardiovascular: Regular rate, Regular Rhythm, Normal S1, Normal S2, No murmurs Abdomen: Bowel Sounds Present, Soft, Non Tender, Obese Extremities: No clubbing, No cyanosis, Edema Skin: - - No significant change from previous. Musculoskeletal: No Tenderness to Palpation of Joints or Extremities Lymphatic: No Cervical, Supraclavicular, or Inguinal Adenopathy Neurological: Neuro grossly intact Psych/Mental Status: Alert and oriented to time, place, person, mood and affect Vital Signs Temp Pulse Resp BP Pulse Ox 97.8 F 62 16 162/74 H 98 04/14/18 06:00 04/14/18 06:57 04/14/18 06:57 04/14/18 06:00 04/14/18 06:57 Oxygen Flow Rate (L/min) 4 Oxygen Delivery Method Nasal Cannula Weight: 359 lb 9.183 oz Body Mass Index (BMI) 49.2 Intake and Output for Last 24 Hours 07/31/18 08/01/18 08/02/18 23:59 23:59 23:59 Intake Total 2904.2 / 2904.2 2582.8 / 2582.8 682 / 682 Output Total 4850 / 4850 4900 / 4900 1450 / 1450 Balance -1945.8 / -1945.8 -2317.2 / -2317.2 -768 / -768 Labs (Last 48 Hours) 04/12/18 04/12/18 04/12/18 07:38 07:38 07:38 WBC 12.8 H RBC 4.17 L Hgb 11.7 L Hct 37.5 L MCV 89.9 MCH 28.1 MCHC 31.2 L RDW 16.0 H RDW Differential 51.8 H Plt Count 217 MPV 9.8 Immature Gran % (Auto) 0.300 Neut % (Auto) 81.5 H Lymph % (Auto) 7.5 L [place] % (Auto) 8.4 Eos % (Auto) 2.1 Baso % (Auto) 0.2 Absolute Neuts (auto) 10.4 H Absolute Lymphs (auto) 0.96 Total Counted Not Reportable Sodium 142 Potassium 3.6 Chloride 100 Carbon Dioxide 38.0 H Anion Gap 4 L BUN 26 H Creatinine 1.23 Estim Creat Clear Calc 66.59 Est GFR (MDRD) Af Amer 76 Est GFR (MDRD) Non-Af 63 BUN/Creatinine Ratio 21.1 H Glucose 122 H Calcium 8.7 Total Bilirubin 0.60 AST 13 L ALT 18 Alkaline Phosphatase 76 Troponin I 0.079 H B-Natriuretic Peptide Total Protein 6.1 L Albumin 3.0 L Globulin 3.1 Albumin/Globulin Ratio 1.0 POC Glucose 04/12/18 04/12/18 04/12/18 07:38 11:37 17:28 WBC RBC Hgb Hct MCV MCH MCHC RDW RDW Differential Plt Count MPV Immature Gran % (Auto) Neut % (Auto) Lymph % (Auto) [place] % (Auto) Eos % (Auto) Baso % (Auto) Absolute Neuts (auto) Absolute Lymphs (auto) Total Counted Sodium Potassium Chloride Carbon Dioxide Anion Gap BUN Creatinine Estim Creat Clear Calc Est GFR (MDRD) Af Amer Est GFR (MDRD) Non-Af BUN/Creatinine Ratio Glucose Calcium Total Bilirubin AST ALT Alkaline Phosphatase Troponin I B-Natriuretic Peptide 101.1 H Total Protein Albumin Globulin Albumin/Globulin Ratio POC Glucose 187 H 173 H 04/13/18 04/13/18 04/13/18 00:37 05:00 05:00 WBC 11.2 H RBC 4.43 L Hgb 12.4 L Hct 38.5 L MCV 86.9 MCH 28.0 MCHC 32.2 RDW 15.1 H RDW Differential 47.2 H Plt Count 240 MPV 10.2 Immature Gran % (Auto) 0.500 Neut % (Auto) 93.3 H Lymph % (Auto) 2.6 L [place] % (Auto) 3.5 Eos % (Auto) 0.0 Baso % (Auto) 0.1 Absolute Neuts (auto) 10.5 H Absolute Lymphs (auto) 0.29 L Total Counted Not Reportable Sodium 141 Potassium 4.1 Chloride 99 Carbon Dioxide 35.0 H Anion Gap 7 BUN 32 H Creatinine 1.23 Estim Creat Clear Calc 66.59 Est GFR (MDRD) Af Amer 76 Est GFR (MDRD) Non-Af 63 BUN/Creatinine Ratio 26.0 H Glucose 179 H Calcium 8.9 Total Bilirubin AST ALT Alkaline Phosphatase Troponin I B-Natriuretic Peptide Total Protein Albumin Globulin Albumin/Globulin Ratio POC Glucose 177 H 04/13/18 04/14/18 04/14/18 06:27 04:22 04:22 WBC 12.6 H RBC 4.05 L Hgb 11.4 L Hct 35.7 L MCV 88.1 MCH 28.1 MCHC 31.9 L RDW 15.5 H RDW Differential 49.9 H Plt Count 224 MPV 10.2 Immature Gran % (Auto) 0.600 Neut % (Auto) 84.7 H Lymph % (Auto) 4.1 L [place] % (Auto) 10.4 H Eos % (Auto) 0.1 Baso % (Auto) 0.1 Absolute Neuts (auto) 10.7 H Absolute Lymphs (auto) 0.52 L Total Counted Not Reportable Sodium 146 H Potassium 3.6 Chloride 104 Carbon Dioxide 35.0 H Anion Gap 7 BUN 33 H Creatinine 1.20 Estim Creat Clear Calc 68.26 Est GFR (MDRD) Af Amer 78 Est GFR (MDRD) Non-Af 65 BUN/Creatinine Ratio 27.5 H Glucose 127 H Calcium 8.9 Total Bilirubin AST ALT Alkaline Phosphatase Troponin I B-Natriuretic Peptide Total Protein Albumin Globulin Albumin/Globulin Ratio POC Glucose 164 H Microbiology 04/12/18 07:33 Sputum, Induced/[place]ukens Gram Stain - Final 04/12/18 07:33 Sputum, Induced/Lukens Respiratory Culture - Preliminary Culture exhibits no growth. 04/12/18 07:33 Mucosa - Nasopharyngeal Respiratory Panel (PCR) - Final 04/09/18 07:33 Sputum, Induced/[place] Gram Stain - Final 04/09/18 07:33 Sputum, Induced/[place] Respiratory Culture - Final Culture exhibits no growth. 04/12/18 07:35 Urine Catheter - [place] Streptococcus pneumoniae Antigen (M - Final 04/12/18 07:35 Urine Catheter - [place] Legionella Antigen - Final Clinical Impression(s) from Imaging Studies Brain CT 04/09/18 03:53 IMPRESSION: Chronic involutional changes of the brain. There is no acute intracranial pathology. Electronically Signed: Porsche Jacinto MD at 6:45 EDT , Service support , Chest X-Ray 04/09/18 04:35 IMPRESSION: Lines as above. Predominant right-sided airspace disease possibly inflammatory/infectious in nature. Electronically Signed: Porsche Jacinto MD at 5:34 EDT , Service support , KUB X-Ray 04/09/18 04:35 IMPRESSION: Enteric tube in good position. Right greater than left airspace disease. Electronically Signed: Porsche Jacinto MD at 5:36 EDT , Service support , Chest X-Ray 04/09/18 07:40 IMPRESSION: 1. Appropriate positioning of endotracheal tube. 2. Unchanged appearance to bilateral airspace disease, right greater than left. Electronically Signed: Fiona Serrano MD at 8:26 EDT , Service support , Chest X-Ray 04/11/18 08:25 IMPRESSION: Improving right-sided airspace disease. Life support tubes and catheters, as detailed above. Electronically Signed: Jim Gardner DO at 8:55 EDT Tel , Service support , Chest X-Ray 04/12/18 06:40 IMPRESSION: Progressive opacification of the right hemithorax. Improved aeration of the left lung base. Mild residual CHF. Electronically Signed: Clement Liu MD at 13:02 EDT Tel [phone], Service support , Medical Necessity - Tobacco Use Smoking Status: Former smoker Tobacco Use: - Assessment/Plan All Active Problems Healthcare-associated pneumonia (Acute) Acute respiratory failure (Acute) COPD (chronic obstructive pulmonary disease) (Acute) CAD (coronary artery disease) (Acute) RECOMMENDATIONS: 1. Transition from IV Zosyn to p.o. Levaquin to complete a 7 day treatment course. 2. Continue prednisone by mouth with plans for a taper at discharge (40 mg ?3 days, 20 mg ?3 days, then resume baseline 10 mg daily dose). 3. Continue current antihypertensive regimen and diuretics. 4. Continue scheduled bronchodilators while awake. 5. Encourage incentive spirometer use and mobilize patient as tolerated. 6. Perform walking oximetry study prior to consideration for discharge from the hospital. 7. The patient needs to be seen by her nurse practitioner in the pulmonary medicine clinic within 2 weeks of his discharge from the hospital. IMPRESSIONS: 1. Acute on chronic combined respiratory failure secondary to HCAP Continue scheduled bronchodilators while awake. IV Zosyn will be transitioned to p.o. Levaquin to complete a 7 day treatment course. The patient is currently maintaining appropriate oxygen saturations on his baseline 4 L/min supplemental oxygen requirement. Would plan to continue prednisone 40 mg daily with taper as outlined above. Continue scheduled Lasix regimen. Continue to encourage incentive spirometer use and mobilize patient as tolerated. Perform walking oximetry study prior to consideration for discharge from the hospital. The patient would benefit from a follow-up office visit with our nurse practitioner in the pulmonary medicine clinic within 2 weeks of his discharge from the hospital. 2. Acute on chronic systolic congestive heart failure/a flutter status post cardioversion/prolonged QT Patient with significant lower extremity edema and a history of systolic congestive heart failure. Continue Lasix as ordered. Patient also likely has an element of pulmonary hypertension that would benefit from diuresis. Okay to continue with aspirin and Plavix, but rate control has been held. Given patient 's significantly prolonged QT, amiodarone was discontinued. Would plan to recheck EKG today to reassess QT. If stabilized, the patient's home diltiazem and Norvasc and be restarted. 3. Severe sepsis secondary to HCAP and E. coli cystitis Patient with large right-sided infiltrate and respiratory failure. Patient is on appropriate antibiotics. Plan to complete a 7 day treatment course, as noted above. 4. Diabetes mellitus type 2 Continue Accu-Cheks and sliding scale insulin coverage. 5. COPD/cor pulmonale/untreated sleep apnea Patient with extensive pulmonary issues at baseline. Patient has not been compliant with ANIBAL therapy and was on 10 mg of prednisone daily for palliative measures. 6. Morbid obesity/stasis dermatitis/hyperlipidemia/hypertension/history of CVA/ CKD stage II/BPH/poor information Complicates care, management, recovery and prognosis. Physical therapy to work with patient today. This note was generated with [employer] dictation software. It may contain incorrect words, spelling, and punctuation that were not noted in checking the note before signing. DISPOSITION: The patient is medically stable for transfer out of the intensive care unit. Code Visit Inpatient E&M: [id number] [facility] L3
[2018-04-14] MEDS: levoFLOXacin 750 MG Tablet PO (08:19)
[2018-04-14] MEDS: Aspirin 81 MG TAB.CHEW PO (08:19)
[2018-04-14] MEDS: Ferrous Sulfate 325 MG Tablet PO (08:19)
[2018-04-14] MEDS: Calcium (Elemental) 500 MG Tablet PO (08:19)
[2018-04-14] MEDS: predniSONE 20 MG Tablet 40 MG PO (08:20)
--- NOTE | 2018-04-14 09:29 | CASEMGMT ---
DC PLAN: Home on dc -Pt is independent gentleman who does not wish to have any assistance at home. Plans to return home (sister in law may assist with transportation), but he is refusing any Home Health. -RN NANCIE discussed @ length re: safety at home and being as active with therapy to return his strength as possible. Pt stated he was independent @ home, drives and will be fine. [place] let pt know we can re-evaluate and discuss options again if he feels he needs assistance. -Pt states he will need a portable tank delivered to hospital from [facility] [place] as no one can get in my jeep to get my portable tanks. Eyad BAILONN RN ACM
[2018-04-14] MEDS: Famotidine 20 MG Tablet PO ×2 (09:57→21:28)
[2018-04-14] MEDS: Clopidogrel Bisulfate 75 MG Tablet PO (09:57)
[2018-04-14] MEDS: Furosemide 40 MG Tablet PO ×2 (09:57→17:03)
[2018-04-14] MEDS: Losartan Potassium 50 MG Tablet PO (09:58)
[2018-04-14] MEDS: Enoxaparin 40 MG/0.4 ML Syringe SC (09:58)
[2018-04-14] MEDS: guaiFENesin 10 ML UDC (200MG/10ML) PO ×3 (12:16→21:30)
--- NOTE | 2018-04-14 18:54 | PCM.PROGNOTE ---
Patient Problems: Active and Suspected Problems Healthcare-associated pneumonia (Acute) Acute respiratory failure (Acute) COPD (chronic obstructive pulmonary disease) (Acute) CAD (coronary artery disease) (Acute) Subjective: Patient is seen and examined today, he remains on nasal cannula oxygen, I briefly talked with him about going to an extended care facility for rehab-he did not like this idea and stated he would prefer to go home and that he could walk with a walker while he was in the hospital here. I am concerned the patient has severe deconditioning from his stay in the hospital here, I remain unconvinced that he is able to go home and take care of himself. - Physical Exam General: Alert, Oriented x3, Cooperative, No apparent distress, Well developed HEENT: Atraumatic, PERRLA, EOMI, Normocephalic Oral: Moist Mucosa Neck: Supple, No JVD, No Nuchal Rigidity, Trachea Midline, Thyroid Normal Size and Texture Lungs: Clear to auscultation, Normal air movement, No rhonchi, No wheeze, No rales Cardiovascular: Regular rate, Regular Rhythm, Normal S1, Normal S2, No murmurs, No Ectopic Activity, PMI Normal, No rub noted, No Gallop Abdomen: Bowel Sounds Present, Soft, Non Tender, Non-Distended, Obese, No hernias noted Extremities: No clubbing, No cyanosis, Capillary Refill Less than 3 Seconds Skin: No rashes, No breakdown Musculoskeletal: No Tenderness to Palpation of Joints or Extremities Neurological: Cranial nerves II-XII grossly intact, Neuro grossly intact, Sensory exam intact to light touch and pain Psych/Mental Status: Normal Affect, Appropriate, Alert and oriented to time, place, person, mood and affect Vital Signs Temp Pulse Resp BP Pulse Ox 98.3 F 70 16 125/54 H 98 04/14/18 14:00 04/14/18 15:16 04/14/18 14:23 04/14/18 14:00 04/14/18 15:12 Oxygen Flow Rate (L/min) 3 Oxygen Delivery Method Nasal Cannula Weight: 163.1 kg Body Mass Index (BMI) 49.2 Intake and Output for Last 24 Hours 04/12/18 04/13/18 04/14/18 23:59 23:59 23:59 Intake Total 2904.2 / 2904.2 2582.8 / 2582.8 1267 / 1267 Output Total 4850 / 4850 4900 / 4900 2600 / 2600 Balance -1945.8 / -1945.8 -2317.2 / -2317.2 -1333 / -1333 Microbiology Past 72 Hours 04/12/18 07:33 Gram Stain - Final Sputum, Induced/Lukens Respiratory Culture - Final Culture exhibits no growth. 04/12/18 07:33 Respiratory Panel (PCR) - Final Mucosa - Nasopharyngeal 04/09/18 07:33 Gram Stain - Final Sputum, Induced/Lukens Respiratory Culture - Final Culture exhibits no growth. 04/12/18 07:35 Streptococcus pneumoniae Antigen (M - Final Urine Catheter - [place] 04/12/18 07:35 Legionella Antigen - Final Urine Catheter - [place] Laboratory Tests Past 24 Hrs 04/14/18 04/14/18 04:22 04:22 WBC 12.6 H RBC 4.05 L Hgb 11.4 L Hct 35.7 L MCV 88.1 MCH 28.1 MCHC 31.9 L RDW 15.5 H RDW Differential 49.9 H Plt Count 224 MPV 10.2 Immature Gran % (Auto) 0.600 Neut % (Auto) 84.7 H Lymph % (Auto) 4.1 L [place] % (Auto) 10.4 H Eos % (Auto) 0.1 Baso % (Auto) 0.1 Absolute Neuts (auto) 10.7 H Absolute Lymphs (auto) 0.52 L Total Counted Not Reportable Sodium 146 H Potassium 3.6 Chloride 104 Carbon Dioxide 35.0 H Anion Gap 7 BUN 33 H Creatinine 1.20 Estim Creat Clear Calc 68.26 Est GFR (MDRD) Af Amer 78 Est GFR (MDRD) Non-Af 65 BUN/Creatinine Ratio 27.5 H Glucose 127 H Calcium 8.9 Medical Necessity - Tobacco Use Smoking Status: Former smoker Tobacco Use: - Assessment/Plan All Active Problems Healthcare-associated pneumonia (Acute) Acute respiratory failure (Acute) COPD (chronic obstructive pulmonary disease) (Acute) CAD (coronary artery disease) (Acute) #1 acute on chronic combined respiratory failure-now on nasal cannula O2, patient is stable for transfer to PCU #2 right-sided healthcare-acquired pneumonia-continue present antibiotic coverage #3 severe sepsis from community-acquired pneumonia-patient is on Levaquin #4 type 2 diabetes #5 chronic obstructive pulmonary disease #6 pulmonary hypertension #7 morbid obesity #8 chronic kidney disease stage II #9 tachycardia mediated cardiomyopathy-patient's EF on his echocardiogram on 04/12/18 was 55% #10 elevated troponins-etiology unclear at this point #11 probable coronary artery disease-patient refused catheterization during an earlier admission this year, patient's ejection fraction on his echocardiogram this admission was normal #12 E. coli cystitis-continue present antibiotic coverage-patient is on Levaquin Code Visit Inpatient E&M: 82056 Subs Hosp L2
[2018-04-14] MEDS: Atorvastatin Calcium 40 MG Tablet PO (21:27)
[2018-04-14] MEDS: 0.9% NaCl PICC Flush IV (21:28)
[2018-04-15] VITALS (16 sets, daily range): BP systolic 117–154; BP diastolic 52–65; PULSE 58–74; RESP 14–20; TEMP 36.7–37.2; O2SAT 95–98
[2018-04-15] MEDS: Ipratropium/Albuterol Sulfate 3 ML AMPUL.NEB INHALATION ×5 (03:56→17:38)
[2018-04-15] MEDS: levoFLOXacin 750 MG Tablet PO (06:10)
--- NOTE | 2018-04-15 06:53 | PN_ITS ---
Subjective: The patient was seen and examined at the bedside this morning. Events from the last 24 hours have been reviewed. The patient is currently afebrile, hemodynamically stable and maintaining appropriate oxygen saturations on 3 L/ min via nasal cannula. No overnight events were reported by the nursing staff. Breathing quality has returned back to baseline. Objective: The patient's most recent lab work, culture data and imaging studies have all been personally reviewed. Strep and urine Legionella antigens were both negative. Repeat sputum culture dated April 12 is currently pending. Respiratory viral panel was negative. Blood cultures have shown no growth to date. Urine culture was positive for greater than 100,000 colony-forming units of E. coli, which was pansensitive. Surface echocardiogram revealed segmental dysfunction with preserved ejection fraction of 55%. General: Alert, Oriented x3, Cooperative, No apparent distress HEENT: Atraumatic, PERRLA, Normocephalic Oral: No Gingival or Mucosal Lesions/ Ulcerations Neck: Supple, No Nodes, Trachea Midline Lungs: No rhonchi, No wheeze, No rales, Diminished Cardiovascular: Regular rate, Regular Rhythm, Normal S1, Normal S2, No murmurs Abdomen: Bowel Sounds Present, Soft, Non Tender, Non-Distended, Obese Extremities: No clubbing, No cyanosis, - - Trace lower extremity edema Skin: - - No significant change from previous. Musculoskeletal: No Tenderness to Palpation of Joints or Extremities, No Muscle Wasting Lymphatic: No Cervical, Supraclavicular, or Inguinal Adenopathy Neurological: Neuro grossly intact Psych/Mental Status: Alert and oriented to time, place, person, mood and affect Vital Signs Temp Pulse Resp BP Pulse Ox 98.2 F 63 18 154/62 H 97 04/15/18 02:00 04/15/18 03:56 04/15/18 03:56 04/15/18 02:00 04/15/18 02:00 Oxygen Flow Rate (L/min) 3 Oxygen Delivery Method Nasal Cannula Weight: 359 lb 9.183 oz Body Mass Index (BMI) 49.2 Intake and Output for Last 24 Hours 04/13/18 04/14/18 04/15/18 23:59 23:59 23:59 Intake Total 2582.8 / 2582.8 1267 / 1267 210 / 210 Output Total 4900 / 4900 2600 / 2600 550 / 550 Balance -2317.2 / -2317.2 -1333 / -1333 -340 / -340 Labs (Last 48 Hours) 04/14/18 04/14/18 04:22 04:22 WBC 12.6 H RBC 4.05 L Hgb 11.4 L Hct 35.7 L MCV 88.1 MCH 28.1 MCHC 31.9 L RDW 15.5 H RDW Differential 49.9 H Plt Count 224 MPV 10.2 Immature Gran % (Auto) 0.600 Neut % (Auto) 84.7 H Lymph % (Auto) 4.1 L [place] % (Auto) 10.4 H Eos % (Auto) 0.1 Baso % (Auto) 0.1 Absolute Neuts (auto) 10.7 H Absolute Lymphs (auto) 0.52 L Total Counted Not Reportable Sodium 146 H Potassium 3.6 Chloride 104 Carbon Dioxide 35.0 H Anion Gap 7 BUN 33 H Creatinine 1.20 Estim Creat Clear Calc 68.26 Est GFR (MDRD) Af Amer 78 Est GFR (MDRD) Non-Af 65 BUN/Creatinine Ratio 27.5 H Glucose 127 H Calcium 8.9 Microbiology 04/12/18 07:33 Sputum, Induced/Lukens Gram Stain - Final 04/12/18 07:33 Sputum, Induced/Lukens Respiratory Culture - Final Culture exhibits no growth. Clinical Impression(s) from Imaging Studies Brain CT 04/09/18 03:53 IMPRESSION: Chronic involutional changes of the brain. There is no acute intracranial pathology. Electronically Signed: Porsche Jacinto MD at 6:45 EDT , Service support , Chest X-Ray 04/09/18 04:35 IMPRESSION: Lines as above. Predominant right-sided airspace disease possibly inflammatory/infectious in nature. Electronically Signed: Porsche Jacinto MD at 5:34 EDT , Service support , KUB X-Ray 04/09/18 04:35 IMPRESSION: Enteric tube in good position. Right greater than left airspace disease. Electronically Signed: Porsche Jacinto MD at 5:36 EDT , Service support , Chest X-Ray 04/09/18 07:40 IMPRESSION: 1. Appropriate positioning of endotracheal tube. 2. Unchanged appearance to bilateral airspace disease, right greater than left. Electronically Signed: Fiona Serrano MD at 8:26 EDT , Service support , Chest X-Ray 04/11/18 08:25 IMPRESSION: Improving right-sided airspace disease. Life support tubes and catheters, as detailed above. Electronically Signed: Jim Gardner DO at 8:55 EDT Tel , Service support , Chest X-Ray 04/12/18 06:40 IMPRESSION: Progressive opacification of the right hemithorax. Improved aeration of the left lung base. Mild residual CHF. Electronically Signed: Clement Liu MD at 13:02 EDT Tel [phone], Service support , Medical Necessity - Tobacco Use Smoking Status: Former smoker Tobacco Use: - Assessment/Plan All Active Problems Healthcare-associated pneumonia (Acute) Acute respiratory failure (Acute) COPD (chronic obstructive pulmonary disease) (Acute) CAD (coronary artery disease) (Acute) RECOMMENDATIONS: 1. Continue Levaquin to complete a 7 day treatment course. 2. Continue prednisone by mouth with plans for a taper at discharge (40 mg ?3 days, 20 mg ?3 days, then resume baseline 10 mg daily dose). 3. Continue current antihypertensive regimen and diuretics. 4. Continue scheduled bronchodilators while awake. 5. Encourage incentive spirometer use and mobilize patient as tolerated. 6. Perform walking oximetry study prior to consideration for discharge from the hospital. 7. The patient needs to be seen by her nurse practitioner in the pulmonary medicine clinic within 2 weeks of his discharge from the hospital. IMPRESSIONS: 1. Acute on chronic combined respiratory failure secondary to HCAP Continue scheduled bronchodilators while awake. IV Zosyn was transitioned to p.o. Levaquin to complete a 7 day treatment course. The patient is currently maintaining appropriate oxygen saturations on his baseline 4 L/min supplemental oxygen requirement. Would plan to continue prednisone 40 mg daily with taper as outlined above. Continue scheduled Lasix regimen. Continue to encourage incentive spirometer use and mobilize patient as tolerated. Perform walking oximetry study prior to consideration for discharge from the hospital. The patient would benefit from a follow-up office visit with our nurse practitioner in the pulmonary medicine clinic within 2 weeks of his discharge from the hospital. He is stable for discharge home from my perspective with outpatient follow-up as noted. 2. Acute on chronic systolic congestive heart failure/a flutter status post cardioversion/prolonged QT Patient with significant lower extremity edema and a history of systolic congestive heart failure. Continue Lasix as ordered. Patient also likely has an element of pulmonary hypertension that would benefit from diuresis. Okay to continue with aspirin and Plavix, but rate control has been held. Given patient 's significantly prolonged QT, amiodarone was discontinued. 3. Severe sepsis secondary to HCAP and E. coli cystitis Patient with large right-sided infiltrate and respiratory failure. Patient is on appropriate antibiotics. Plan to complete a 7 day treatment course, as noted above. 4. Diabetes mellitus type 2 Continue Accu-Cheks and sliding scale insulin coverage. 5. COPD/cor pulmonale/untreated sleep apnea Patient with extensive pulmonary issues at baseline. Patient has not been compliant with ANIBAL therapy and was on 10 mg of prednisone daily for palliative measures. 6. Morbid obesity/stasis dermatitis/hyperlipidemia/hypertension/history of CVA/ CKD stage II/BPH/poor information Complicates care, management, recovery and prognosis. Physical therapy to continue to work with patient. This note was generated with [employer]erian dictation software. It may contain incorrect words, spelling, and punctuation that were not noted in checking the note before signing. Code Visit Inpatient E&M: 97550 Subs Hosp L2
[2018-04-15] MEDS: Aspirin 81 MG TAB.CHEW PO (08:29)
[2018-04-15] MEDS: Ferrous Sulfate 325 MG Tablet PO (08:29)
[2018-04-15] MEDS: Losartan Potassium 50 MG Tablet PO (08:30)
[2018-04-15] MEDS: Calcium (Elemental) 500 MG Tablet PO (08:30)
[2018-04-15] MEDS: predniSONE 20 MG Tablet 40 MG PO (08:30)
[2018-04-15] MEDS: Furosemide 40 MG Tablet PO ×2 (08:30→17:24)
[2018-04-15] MEDS: Famotidine 20 MG Tablet PO ×2 (08:31→22:10)
[2018-04-15] MEDS: Enoxaparin 40 MG/0.4 ML Syringe SC (08:31)
[2018-04-15] MEDS: Clopidogrel Bisulfate 75 MG Tablet PO (08:31)
--- NOTE | 2018-04-15 16:19 | CASEMGMT ---
RN CM Note: Reviewed PT notes. Pt refusing Home Health PT, has stairs to go to second floor apartment. Ambulated 140' but PT recommends stair training. KYE [place] reviewed with Dr. Anne who is aware pt is refusing assistance at home, needs to be stronger to manage @ home w/o assist. -[facility] will need notified to bring portable tank if pt is dc'd, as he cannot get his from home. [facility]# [phone]. Eyad BAILONN RN ACM
--- NOTE | 2018-04-15 19:36 | PCM.PROGNOTE ---
Patient Problems: Active and Suspected Problems Healthcare-associated pneumonia (Acute) Acute respiratory failure (Acute) COPD (chronic obstructive pulmonary disease) (Acute) CAD (coronary artery disease) (Acute) Subjective: Patient was seen and examined today, he is alert and in no distress, he was moved out of ICU today. Patient is on nasal cannula O2 presently - Physical Exam General: Alert, Oriented x3, Cooperative, No apparent distress, Well developed, Well nourished HEENT: Atraumatic, PERRLA, EOMI, Normocephalic Oral: Moist Mucosa Neck: Supple, No JVD, No Nuchal Rigidity, Trachea Midline, Thyroid Normal Size and Texture Lungs: Clear to auscultation, Normal air movement, No rhonchi, No wheeze, No rales Cardiovascular: Regular rate, Regular Rhythm, Normal S1, Normal S2, No murmurs, No Ectopic Activity, PMI Normal, No rub noted, No Gallop Abdomen: Bowel Sounds Present, Soft, Non Tender, Non-Distended, Obese, No hernias noted Extremities: No clubbing, No cyanosis, Capillary Refill Less than 3 Seconds Skin: No rashes, No breakdown Neurological: Cranial nerves II-XII grossly intact, Neuro grossly intact, Muscle tone normal, Sensory exam intact to light touch and pain Psych/Mental Status: Normal Affect, Appropriate, Alert and oriented to time, place, person, mood and affect Vital Signs Temp Pulse Resp BP Pulse Ox 98.5 F 71 19 H 142/52 H 96 04/15/18 17:25 04/15/18 17:41 04/15/18 17:41 04/15/18 17:25 04/15/18 17:25 Oxygen Flow Rate (L/min) 3 Oxygen Delivery Method Nasal Cannula Weight: 163.1 kg Body Mass Index (BMI) 49.2 Intake and Output for Last 24 Hours 04/13/18 04/14/18 04/15/18 23:59 23:59 23:59 Intake Total 2582.8 / 2582.8 1267 / 1267 950 / 950 Output Total 4900 / 4900 2600 / 2600 553 / 553 Balance -2317.2 / -2317.2 -1333 / -1333 397 / 397 Microbiology Past 72 Hours 04/12/18 07:33 Gram Stain - Final Sputum, Induced/Lukens Respiratory Culture - Final Culture exhibits no growth. Medical Necessity - Tobacco Use Smoking Status: Former smoker Tobacco Use: - Assessment/Plan All Active Problems Healthcare-associated pneumonia (Acute) Acute respiratory failure (Acute) COPD (chronic obstructive pulmonary disease) (Acute) CAD (coronary artery disease) (Acute) #1 acute on chronic combined respiratory failure-now on nasal cannula O2 #2 right-sided healthcare-acquired pneumonia-patient is finished with antibiotic coverage #3 severe sepsis from community-acquired pneumonia-patient is finished with antibiotic coverage #4 type 2 diabetes #5 chronic obstructive pulmonary disease #6 pulmonary hypertension #7 morbid obesity #8 chronic kidney disease stage II #9 tachycardia mediated cardiomyopathy-patient's EF on his echocardiogram on 04/12/18 was 55% #10 elevated troponins-etiology unclear at this point #11 probable coronary artery disease-patient refused catheterization during an earlier admission this year, patient's ejection fraction on his echocardiogram this admission was normal #12 E. coli cystitis-resolved #13 poor compliance with medical treatment-patient has a history of noncompliance, he does not want to go to a intermediate but I feel he most probably needs to go to a group home facility. This will be a problem with managing the patient Code Visit Inpatient E&M: 64478 Subs Hosp L2
--- NOTE | 2018-04-15 19:39 | PN_ITS ---
Patient Problems: Active and Suspected Problems Healthcare-associated pneumonia (Acute) Acute respiratory failure (Acute) COPD (chronic obstructive pulmonary disease) (Acute) CAD (coronary artery disease) (Acute) Subjective: Patient was seen and examined today, he is alert and in no distress, he was moved out of ICU today. Patient is on nasal cannula O2 presently - Physical Exam General: Alert, Oriented x3, Cooperative, No apparent distress, Well developed, Well nourished HEENT: Atraumatic, PERRLA, EOMI, Normocephalic Oral: Moist Mucosa Neck: Supple, No JVD, No Nuchal Rigidity, Trachea Midline, Thyroid Normal Size and Texture Lungs: Clear to auscultation, Normal air movement, No rhonchi, No wheeze, No rales Cardiovascular: Regular rate, Regular Rhythm, Normal S1, Normal S2, No murmurs, No Ectopic Activity, PMI Normal, No rub noted, No Gallop Abdomen: Bowel Sounds Present, Soft, Non Tender, Non-Distended, Obese, No hernias noted Extremities: No clubbing, No cyanosis, Capillary Refill Less than 3 Seconds Skin: No rashes, No breakdown Neurological: Cranial nerves II-XII grossly intact, Neuro grossly intact, Muscle tone normal, Sensory exam intact to light touch and pain Psych/Mental Status: Normal Affect, Appropriate, Alert and oriented to time, place, person, mood and affect Vital Signs Temp Pulse Resp BP Pulse Ox 98.5 F 71 19 H 142/52 H 96 04/15/18 17:25 04/15/18 17:41 04/15/18 17:41 04/15/18 17:25 04/15/18 17:25 Oxygen Flow Rate (L/min) 3 Oxygen Delivery Method Nasal Cannula Weight: 163.1 kg Body Mass Index (BMI) 49.2 Intake and Output for Last 24 Hours 04/13/18 04/14/18 04/15/18 23:59 23:59 23:59 Intake Total 2582.8 / 2582.8 1267 / 1267 950 / 950 Output Total 4900 / 4900 2600 / 2600 553 / 553 Balance -2317.2 / -2317.2 -1333 / -1333 397 / 397 Microbiology Past 72 Hours 04/12/18 07:33 Gram Stain - Final Sputum, Induced/Lukens Respiratory Culture - Final Culture exhibits no growth. Medical Necessity - Tobacco Use Smoking Status: Former smoker Tobacco Use: - Assessment/Plan All Active Problems Healthcare-associated pneumonia (Acute) Acute respiratory failure (Acute) COPD (chronic obstructive pulmonary disease) (Acute) CAD (coronary artery disease) (Acute) #1 acute on chronic combined respiratory failure-now on nasal cannula O2 #2 right-sided healthcare-acquired pneumonia-patient is finished with antibiotic coverage #3 severe sepsis from community-acquired pneumonia-patient is finished with antibiotic coverage #4 type 2 diabetes #5 chronic obstructive pulmonary disease #6 pulmonary hypertension #7 morbid obesity #8 chronic kidney disease stage II #9 tachycardia mediated cardiomyopathy-patient's EF on his echocardiogram on was 55% #10 elevated troponins-etiology unclear at this point #11 probable coronary artery disease-patient refused catheterization during an earlier admission this year, patient's ejection fraction on his echocardiogram this admission was normal #12 E. coli cystitis-resolved #13 poor compliance with medical treatment-patient has a history of noncompliance, he does not want to go to a correction but I feel he most probably needs to go to a long-term facility. This will be a problem with managing the patient Code Visit Inpatient E&M: 29553 Subs Hosp L2
[2018-04-15] MEDS: Atorvastatin Calcium 40 MG Tablet PO (22:10)
[2018-04-15] MEDS: guaiFENesin 10 ML UDC (200MG/10ML) PO (22:14)
[2018-04-16] VITALS (14 sets, daily range): BP systolic 109–151; BP diastolic 52–66; PULSE 59–75; RESP 18–20; TEMP 36.4–37.2; O2SAT 95–98
[2018-04-16] MEDS: Ipratropium/Albuterol Sulfate 3 ML AMPUL.NEB INHALATION ×4 (06:35→18:55)
[2018-04-16] MEDS: Aspirin 81 MG TAB.CHEW PO (08:17)
[2018-04-16] MEDS: predniSONE 20 MG Tablet 40 MG PO (08:17)
[2018-04-16] MEDS: Ferrous Sulfate 325 MG Tablet PO (08:18)
[2018-04-16] MEDS: Calcium (Elemental) 500 MG Tablet PO (08:18)
[2018-04-16] MEDS: Losartan Potassium 50 MG Tablet PO (08:23)
[2018-04-16] MEDS: Furosemide 40 MG Tablet PO ×2 (08:23→17:15)
[2018-04-16] MEDS: Famotidine 20 MG Tablet PO ×2 (08:23→21:17)
[2018-04-16] MEDS: Clopidogrel Bisulfate 75 MG Tablet PO (08:23)
[2018-04-16] MEDS: Enoxaparin 40 MG/0.4 ML Syringe SC (08:24)
--- NOTE | 2018-04-16 11:46 | PCM.PN.HOSP ---
Patient Problems: Active and Suspected Problems Healthcare-associated pneumonia (Acute) Acute respiratory failure (Acute) COPD (chronic obstructive pulmonary disease) (Acute) CAD (coronary artery disease) (Acute) Subjective: Feels good. Ambulated with therapy around the floor w/o shortness of breath (was on oxygen). Vitals/I&O's: Vital Signs Temp Pulse Resp BP Pulse Ox 36.4 C L 66 20 H 151/57 H 97 04/16/18 08:25 04/16/18 11:26 04/16/18 11:26 04/16/18 08:25 04/16/18 08:25 Oxygen Flow Rate (L/min) 3 Oxygen Delivery Method Nasal Cannula Weight: 158 kg Body Mass Index (BMI) 49.2 Intake and Output for Last 24 Hours 04/14/18 04/15/18 04/16/18 23:59 23:59 23:59 Intake Total 1267 / 1267 950 / 950 Output Total 2600 / 2600 553 / 553 Balance -1333 / -1333 397 / 397 General: Alert, Cooperative, No apparent distress HEENT: Atraumatic, Normocephalic Oral: Moist Mucosa, No Gingival or Mucosal Lesions/ Ulcerations Neck: No Nodes, Thyroid Normal Size and Texture Lungs: Diminished, - - coarse breath sounds. Cardiovascular: Regular rate, Regular Rhythm, Normal S1, Normal S2, No murmurs Abdomen: Bowel Sounds Present, Soft, Non Tender, Non-Distended, No Hepato-splenomegaly, Passing Flatus Extremities: No edema, No Calf Tenderness Skin: No rashes, No breakdown Musculoskeletal: No Tenderness to Palpation of Joints or Extremities, No Muscle Wasting Psych/Mental Status: Normal Affect, Appropriate Microbiology Past 72 Hours 04/12/18 07:33 Sputum, Induced/Lukens Gram Stain - Final 04/12/18 07:33 Sputum, Induced/Lukens Respiratory Culture - Final Culture exhibits no growth. Current Medications Acetaminophen (Tylenol) 650 mg PO Q6H PRN PRN PRN Reason: HEADACHE Last Admin: 04/14/18 12:14 Dose: 650 mg Albuterol Sulfate (Ventolin Aerosols) 2.5 mg INHALATION Q2H PRN PRN PRN Reason: SOB &/OR WHEEZING Last Admin: 04/12/18 05:19 Dose: 2.5 mg Albuterol/Ipratropium (Duoneb) 3 ml INHALATION Q4HWA.RT [facility] Last Admin: 04/16/18 11:26 Dose: 3 ml Aspirin (Aspirin, Baby) 81 mg PO DAILY@0800 [facility] Last Admin: 04/16/18 08:17 Dose: 81 mg Atorvastatin Calcium (Lipitor) 40 mg PO QHS [facility] Last Admin: 04/15/18 22:10 Dose: 40 mg Calcium Carbonate (Os-Antonio 500) 500 mg PO DAILY@0800 [facility] Last Admin: 04/16/18 08:18 Dose: 500 mg Clopidogrel Bisulfate (Plavix) 75 mg PO DAILY [facility] Last Admin: 04/16/18 08:23 Dose: 75 mg Dextrose (D50w Syringe) 0 gm IV X1 PRN; Protocol PRN Reason: Hypoglycemia Enoxaparin Sodium (Lovenox) 40 mg SC DAILY [facility] Last Admin: 04/16/18 08:24 Dose: 40 mg Famotidine (Pepcid) 20 mg PO BID [facility] Last Admin: 04/16/18 08:23 Dose: 20 mg Ferrous Sulfate (Ferrous Sulfate) 325 mg PO DAILYCM [facility] Last Admin: 04/16/18 08:18 Dose: 325 mg Furosemide (Lasix) 40 mg PO BID@1000,1800 [facility] Last Admin: 04/16/18 08:23 Dose: 40 mg Glucagon () 1 mg IM .X1 PRN PRN Reason: Hypoglycemia Guaifenesin (Robitussin) 10 ml PO Q4H PRN PRN PRN Reason: COUGH Last Admin: 04/15/18 22:14 Dose: 10 ml Heparin Sodium (Beef Lung) (Heparin 500 Unit/5 Ml (100/Ml)) 500 unit IV UD PRN PRN Reason: HEPARIN FLUSH Sodium Chloride () 250 mls @ 15 mls/hr IV .[id number] PRN PRN Reason: SALINE FLUSH Last Admin: 04/13/18 13:45 Dose: 15 mls/hr Losartan Potassium (Cozaar) 50 mg PO DAILY [facility] Last Admin: 04/16/18 08:23 Dose: 50 mg Phenol/Menthol (Chloraseptic (Bkc)) 5 spray MM Q2H PRN PRN PRN Reason: SORE THROAT Last Admin: 04/14/18 00:41 Dose: 5 spray Prednisone () 40 mg PO DAILY@0800 [facility] Last Admin: 04/16/18 08:17 Dose: 40 mg Sodium Chloride () 5 - 30 ml IV UD PRN PRN Reason: SALINE FLUSH Last Admin: 04/13/18 06:30 Dose: 10 ml Sodium Chloride () 10 - 20 ml IV UD PRN PRN Reason: PICC FLUSH Last Admin: 04/14/18 21:28 Dose: 20 ml Medical Necessity - Tobacco Use Smoking Status: Former smoker Tobacco Use: - Assessment/Plan All Active Problems Healthcare-associated pneumonia (Acute) Acute respiratory failure (Acute) COPD (chronic obstructive pulmonary disease) (Acute) CAD (coronary artery disease) (Acute) 1. Acute on chronic hypercapnic respiratory failure Multifactorial due to gram-negative pneumonia and CHF but also patient's known COPD, cor pulmonale and treated sleep apnea Patient has oxygen at home 4 L/min. 2. Suspected gram-negative pneumonia Sputum culture was negative. Urinary antigens for Streptococcus and Legionella were also negative Patient currently on Levaquin which will be his last day 3. Heart failure with preserved ejection fraction Fraction of 55% from echocardiogram from 04/12/2018 Patient's current weight is down to 158 kg. Patient's initial weight was 178 kg but I do not suspect that that it was accurate. Patient's weight is down nonetheless. Continue with 40 mg daily of Lasix Continue with losartan 50 Follow-up with cardiology as outpatient 4. Non-STEMI Troponin peaked as high as 0.245 I suspect a type II event given the patient's respiratory failure, pneumonia and heart failure Patient declining any cardiac intervention stating that if he were to have a heart cath he would have a 99.9% chance of requiring a CABG. I informed him that those statistics are completely inaccurate and people requiring CABG are certainly in the minority. Nonetheless he still does not wish to have a cardiac catheterization. 7 the meantime, will just be continued medical management with dual antiplatelet therapy high intensity statin. 5. Debility Patient has declined home therapy. Plan: Patient is discharged, it is just straight discharged home. 6. Disposition: Given the patient's medical complexity patient be monitored overnight and if he continues to do well then anticipate patient being discharged on the fifth. Code Visit Inpatient E&M: 90815 Subs Hosp L2
--- NOTE | 2018-04-16 11:54 | PN_ITS ---
Patient Problems: Active and Suspected Problems Healthcare-associated pneumonia (Acute) Acute respiratory failure (Acute) COPD (chronic obstructive pulmonary disease) (Acute) CAD (coronary artery disease) (Acute) Subjective: Feels good. Ambulated with therapy around the floor w/o shortness of breath ( was on oxygen). Vitals/I&O's: Vital Signs Temp Pulse Resp BP Pulse Ox 36.4 C L 66 20 H 151/57 H 97 04/16/18 08:25 04/16/18 11:26 04/16/18 11:26 04/16/18 08:25 04/16/18 08:25 Oxygen Flow Rate (L/min) 3 Oxygen Delivery Method Nasal Cannula Weight: 158 kg Body Mass Index (BMI) 49.2 Intake and Output for Last 24 Hours 04/14/18 04/15/18 04/16/18 23:59 23:59 23:59 Intake Total 1267 / 1267 950 / 950 Output Total 2600 / 2600 553 / 553 Balance -1333 / -1333 397 / 397 General: Alert, Cooperative, No apparent distress HEENT: Atraumatic, Normocephalic Oral: Moist Mucosa, No Gingival or Mucosal Lesions/ Ulcerations Neck: No Nodes, Thyroid Normal Size and Texture Lungs: Diminished, - - coarse breath sounds. Cardiovascular: Regular rate, Regular Rhythm, Normal S1, Normal S2, No murmurs Abdomen: Bowel Sounds Present, Soft, Non Tender, Non-Distended, No Hepato- splenomegaly, Passing Flatus Extremities: No edema, No Calf Tenderness Skin: No rashes, No breakdown Musculoskeletal: No Tenderness to Palpation of Joints or Extremities, No Muscle Wasting Psych/Mental Status: Normal Affect, Appropriate Microbiology Past 72 Hours 04/12/18 07:33 Sputum, Induced/Lukens Gram Stain - Final 04/12/18 07:33 Sputum, Induced/Lukens Respiratory Culture - Final Culture exhibits no growth. Current Medications Acetaminophen (Tylenol) 650 mg PO Q6H PRN PRN PRN Reason: HEADACHE Last Admin: 04/14/18 12:14 Dose: 650 mg Albuterol Sulfate (Ventolin Aerosols) 2.5 mg INHALATION Q2H PRN PRN PRN Reason: SOB &/OR WHEEZING Last Admin: 04/12/18 05:19 Dose: 2.5 mg Albuterol/Ipratropium (Duoneb) 3 ml INHALATION Q4HWA.RT [facility] Last Admin: 04/16/18 11:26 Dose: 3 ml Aspirin (Aspirin, Baby) 81 mg PO DAILY@0800 [facility] Last Admin: 04/16/18 08:17 Dose: 81 mg Atorvastatin Calcium (Lipitor) 40 mg PO QHS [facility] Last Admin: 04/15/18 22:10 Dose: 40 mg Calcium Carbonate (Os-Antonio 500) 500 mg PO DAILY@0800 [facility] Last Admin: 04/16/18 08:18 Dose: 500 mg Clopidogrel Bisulfate (Plavix) 75 mg PO DAILY [facility] Last Admin: 04/16/18 08:23 Dose: 75 mg Dextrose (D50w Syringe) 0 gm IV X1 PRN; Protocol PRN Reason: Hypoglycemia Enoxaparin Sodium (Lovenox) 40 mg SC DAILY [facility] Last Admin: 04/16/18 08:24 Dose: 40 mg Famotidine (Pepcid) 20 mg PO BID [facility] Last Admin: 04/16/18 08:23 Dose: 20 mg Ferrous Sulfate (Ferrous Sulfate) 325 mg PO DAILYCM [facility] Last Admin: 04/16/18 08:18 Dose: 325 mg Furosemide (Lasix) 40 mg PO BID@1000,1800 [facility] Last Admin: 04/16/18 08:23 Dose: 40 mg Glucagon () 1 mg IM .X1 PRN PRN Reason: Hypoglycemia Guaifenesin (Robitussin) 10 ml PO Q4H PRN PRN PRN Reason: COUGH Last Admin: 04/15/18 22:14 Dose: 10 ml Heparin Sodium (Beef Lung) (Heparin 500 Unit/5 Ml (100/Ml)) 500 unit IV UD PRN PRN Reason: HEPARIN FLUSH Sodium Chloride () 250 mls @ 15 mls/hr IV .[id number] PRN PRN Reason: SALINE FLUSH Last Admin: 04/13/18 13:45 Dose: 15 mls/hr Losartan Potassium (Cozaar) 50 mg PO DAILY [facility] Last Admin: 04/16/18 08:23 Dose: 50 mg Phenol/Menthol (Chloraseptic (Bkc)) 5 spray MM Q2H PRN PRN PRN Reason: SORE THROAT Last Admin: 04/14/18 00:41 Dose: 5 spray Prednisone () 40 mg PO DAILY@0800 [facility] Last Admin: 04/16/18 08:17 Dose: 40 mg Sodium Chloride () 5 - 30 ml IV UD PRN PRN Reason: SALINE FLUSH Last Admin: 04/13/18 06:30 Dose: 10 ml Sodium Chloride () 10 - 20 ml IV UD PRN PRN Reason: PICC FLUSH Last Admin: 04/14/18 21:28 Dose: 20 ml Medical Necessity - Tobacco Use Smoking Status: Former smoker Tobacco Use: - Assessment/Plan All Active Problems Healthcare-associated pneumonia (Acute) Acute respiratory failure (Acute) COPD (chronic obstructive pulmonary disease) (Acute) CAD (coronary artery disease) (Acute) 1. Acute on chronic hypercapnic respiratory failure * Multifactorial due to gram-negative pneumonia and CHF but also patient's known COPD, cor pulmonale and treated sleep apnea * Patient has oxygen at home 4 L/min. 2. Suspected gram-negative pneumonia * Sputum culture was negative. Urinary antigens for Streptococcus and Legionella were also negative * Patient currently on Levaquin which will be his last day 3. Heart failure with preserved ejection fraction * Fraction of 55% from echocardiogram from 04/12/2018 * Patient's current weight is down to 158 kg. Patient's initial weight was 178 kg but I do not suspect that that it was accurate. Patient's weight is down nonetheless. * Continue with 40 mg daily of Lasix * Continue with losartan 50 * Follow-up with cardiology as outpatient 4. Non-STEMI * Troponin peaked as high as 0.245 * I suspect a type II event given the patient's respiratory failure, pneumonia and heart failure * Patient declining any cardiac intervention stating that if he were to have a heart cath he would have a 99.9% chance of requiring a CABG. I informed him that those statistics are completely inaccurate and people requiring CABG are certainly in the minority. Nonetheless he still does not wish to have a cardiac catheterization. * 7 the meantime, will just be continued medical management with dual antiplatelet therapy high intensity statin. 5. Debility * Patient has declined home therapy. * Plan: Patient is discharged, it is just straight discharged home. 6. Disposition: Given the patient's medical complexity patient be monitored overnight and if he continues to do well then anticipate patient being discharged on the fifth. Code Visit Inpatient E&M: [id number] Subs Hosp L2
[2018-04-16] MEDS: Atorvastatin Calcium 40 MG Tablet PO (21:17)
[2018-04-17] VITALS (8 sets, daily range): BP systolic 133–155; BP diastolic 59–70; PULSE 55–74; RESP 16–18; TEMP 36.5–37.2; O2SAT 95–97
[2018-04-17] MEDS: 0.9% NaCl Peripheral Flush Adult/Peds IV (05:19)
[2018-04-17 06:08] LABS: Anion Gap 5 (5-15); BUN 22 mg/dL (7-18); Calcium,Total 8.8 mg/dL (8.5-10.1); Chloride 106 mmol/L (98-107); Creatinine, Serum 1.05 mg/dL (0.70-1.30); EST Glomerular Filtration Rate 75 mL/min (>60); Est Glom Filt Rate - Afr Amer 91 mL/min (>60); Estimated Creatinine Clearance 78.01 ml/min; Glucose 111 mg/dL (74-106); Potassium 3.6 mmol/L (3.5-5.1); Sodium Level 146 mmol/L (136-145)
[2018-04-17] MEDS: Ipratropium/Albuterol Sulfate 3 ML AMPUL.NEB INHALATION ×2 (06:55→11:01)
[2018-04-17] MEDS: Ferrous Sulfate 325 MG Tablet PO (09:06)
[2018-04-17] MEDS: Calcium (Elemental) 500 MG Tablet PO (09:06)
[2018-04-17] MEDS: Aspirin 81 MG TAB.CHEW PO (09:06)
[2018-04-17] MEDS: predniSONE 20 MG Tablet 40 MG PO (09:06)
[2018-04-17] MEDS: Enoxaparin 40 MG/0.4 ML Syringe SC (09:07)
[2018-04-17] MEDS: Famotidine 20 MG Tablet PO (09:07)
[2018-04-17] MEDS: Clopidogrel Bisulfate 75 MG Tablet PO (09:07)
[2018-04-17] MEDS: Losartan Potassium 50 MG Tablet PO (10:34)
[2018-04-17] MEDS: Furosemide 40 MG Tablet PO (10:34)
--- NOTE | 2018-04-17 11:48 | PN_ITS ---
Patient Problems: Active and Suspected Problems Healthcare-associated pneumonia (Acute) Acute respiratory failure (Acute) COPD (chronic obstructive pulmonary disease) (Acute) CAD (coronary artery disease) (Acute) Subjective: Feeling well. Breathing well. Patient states that he is not need to use his walker as much. Feeling ready to go home today. Vitals/I&O's: Vital Signs Temp Pulse Resp BP Pulse Ox 36.5 C L 71 16 155/70 H 96 04/17/18 09:02 04/17/18 11:01 04/17/18 11:01 04/17/18 09:02 04/17/18 09:02 Oxygen Flow Rate (L/min) 3 Oxygen Delivery Method Nasal Cannula Weight: 156.4 kg Body Mass Index (BMI) 49.2 Intake and Output for Last 24 Hours 04/15/18 04/16/18 04/17/18 23:59 23:59 23:59 Intake Total 950 / 950 1520 / 1520 240 / 240 Output Total 553 / 553 Balance 397 / 397 1520 / 1520 240 / 240 General: Alert, Cooperative, No apparent distress HEENT: Atraumatic, Normocephalic Oral: Moist Mucosa, No Gingival or Mucosal Lesions/ Ulcerations Neck: No Nodes, Thyroid Normal Size and Texture Lungs: Clear to auscultation, Normal air movement, No rhonchi, No wheeze Cardiovascular: Regular rate, Regular Rhythm, Normal S1, Normal S2, No murmurs Abdomen: Bowel Sounds Present, Soft, Non Tender, Non-Distended, No Hepato- splenomegaly, Passing Flatus Extremities: No edema, No Calf Tenderness Psych/Mental Status: Normal Affect, Appropriate Microbiology Past 72 Hours 04/12/18 07:33 Sputum, Induced/Lukens Gram Stain - Final 04/12/18 07:33 Sputum, Induced/Lukens Respiratory Culture - Final Culture exhibits no growth. Laboratory Results 04/17/18 05:15: Sodium 146 H, Potassium 3.6, Chloride 106, Carbon Dioxide 35.0 H , Anion Gap 5, BUN 22 H, Creatinine 1.05, Estim Creat Clear Calc 78.01, Est GFR (MDRD) Af Amer 91, Est GFR (MDRD) Non-Af 75, BUN/Creatinine Ratio 21.0 H, Glucose 111 H, Calcium 8.8 Current Medications Acetaminophen (Tylenol) 650 mg PO Q6H PRN PRN PRN Reason: HEADACHE Last Admin: 04/14/18 12:14 Dose: 650 mg Albuterol Sulfate (Ventolin Aerosols) 2.5 mg INHALATION Q2H PRN PRN PRN Reason: SOB &/OR WHEEZING Last Admin: 04/12/18 05:19 Dose: 2.5 mg Albuterol/Ipratropium (Duoneb) 3 ml INHALATION Q4HWA.RT [facility] Last Admin: 04/17/18 11:01 Dose: 3 ml Aspirin (Aspirin, Baby) 81 mg PO DAILY@0800 [facility] Last Admin: 04/17/18 09:06 Dose: 81 mg Atorvastatin Calcium (Lipitor) 40 mg PO QHS [facility] Last Admin: 04/16/18 21:17 Dose: 40 mg Calcium Carbonate (Os-[place]io 500) 500 mg PO DAILY@0800 [facility] Last Admin: 04/17/18 09:06 Dose: 500 mg Clopidogrel Bisulfate (Plavix) 75 mg PO DAILY [facility] Last Admin: 04/17/18 09:07 Dose: 75 mg Dextrose (D50w Syringe) 0 gm IV X1 PRN; Protocol PRN Reason: Hypoglycemia Enoxaparin Sodium (Lovenox) 40 mg SC DAILY [facility] Last Admin: 04/17/18 09:07 Dose: 40 mg Famotidine (Pepcid) 20 mg PO BID [facility] Last Admin: 04/17/18 09:07 Dose: 20 mg [facility]ous Sulfate ([facility]ate) [facility] Last Admin: 04/17/18 09:06 Dose: 325 mg Furosemide (Lasix) 40 mg PO BID@1000,1800 [facility] Last Admin: 04/17/18 10:34 Dose: 40 mg Glucagon () 1 mg IM .X1 PRN PRN Reason: Hypoglycemia Guaifenesin (Robitussin) 10 ml PO Q4H PRN PRN PRN Reason: COUGH Last Admin: 04/15/18 22:14 Dose: 10 ml Heparin Sodium (Beef Lung) (Heparin 500 Unit/5 Ml (100/Ml)) 500 unit IV UD PRN PRN Reason: HEPARIN FLUSH Sodium Chloride () 250 mls @ 15 mls/hr IV .[id number] PRN PRN Reason: SALINE FLUSH Last Admin: 04/13/18 13:45 Dose: 15 mls/hr Losartan Potassium (Cozaar) 50 mg PO DAILY [facility] Last Admin: 04/17/18 10:34 Dose: 50 mg Phenol/Menthol (Chloraseptic (Bkc)) 5 spray MM Q2H PRN PRN PRN Reason: SORE THROAT Last Admin: 04/14/18 00:41 Dose: 5 spray Prednisone () 40 mg PO DAILY@0800 [facility] Last Admin: 04/17/18 09:06 Dose: 40 mg Sodium Chloride () 5 - 30 ml IV UD PRN PRN Reason: SALINE FLUSH Last Admin: 04/17/18 05:19 Dose: 20 ml Sodium Chloride () 10 - 20 ml IV UD PRN PRN Reason: PICC FLUSH Last Admin: 04/14/18 21:28 Dose: 20 ml Medical Necessity - Tobacco Use Smoking Status: Former smoker Tobacco Use: - Assessment/Plan All Active Problems Healthcare-associated pneumonia (Acute) Acute respiratory failure (Acute) COPD (chronic obstructive pulmonary disease) (Acute) CAD (coronary artery disease) (Acute) 1. Acute on chronic hypercapnic respiratory failure * Multifactorial due to gram-negative pneumonia and CHF but also patient's known COPD, cor pulmonale and treated sleep apnea * Patient has oxygen at home 4 L/min. 2. Suspected gram-negative pneumonia * Sputum culture was negative. Urinary antigens for Streptococcus and Legionella were also negative * Patient currently on Levaquin which will be his last day 3. Heart failure with preserved ejection fraction * Fraction of 55% from echocardiogram from 04/12/2018 * Patient's current weight is down to 158 kg. Patient's initial weight was 178 kg but I do not suspect that that it was accurate. Patient's weight is down nonetheless. * Continue with 40 mg daily of Lasix * Continue with losartan 50 * Follow-up with cardiology as outpatient 4. Non-STEMI * Troponin peaked as high as 0.245 * I suspect a type II event given the patient's respiratory failure, pneumonia and heart failure * Patient declining any cardiac intervention stating that if he were to have a heart cath he would have a 99.9% chance of requiring a CABG. I informed him that those statistics are completely inaccurate and people requiring CABG are certainly in the minority. Nonetheless he still does not wish to have a cardiac catheterization. * in the meantime, will just be continued medical management with dual antiplatelet therapy high intensity statin. 5. Debility * Patient has declined home therapy. * Plan: Patient is discharged, it is just straight discharged home. 6. Disposition: Given the patient's medical complexity patient be monitored overnight and if he continues to do well then anticipate patient being discharged on the fifth.
--- NOTE | 2018-04-17 12:03 | PCM.DC ---
- Discharge Diagnoses Current Active Problems: Current Active and Chronic Problems Healthcare-associated pneumonia (Acute) Acute respiratory failure (Acute) Chronic atrial fibrillation (Chronic) COPD (chronic obstructive pulmonary disease) (Acute) CAD (coronary artery disease) (Acute) You will use the following diet at home:: Cardiac Your food should be the consistency of: Regular Your liquids should be the consistency of: Regular/Thin Discharge Activity: Return to Normal Activity Call your doctor if you observe: Fever of 101 or Higher, Shortness of breath, Chest pain Allergies/Adverse Reactions: Allergies cashew nut Allergy (Verified 04/09/18 04:23) Vomiting cortisone Allergy (Verified 04/09/18 04:23) Itching Medications to take at Discharge Albuterol Inhaler [Ventolin Hfa] 1 - 2 puff INHALATION Q4H PRN PRN 04/09/18 Amlodipine [Norvasc] 10 mg PO DAILY 04/09/18 Apixaban [Eliquis] 5 mg PO BID 04/09/18 Aspirin [Aspirin, Baby] 81 mg PO DAILY@0800 04/09/18 Atorvastatin Calcium [Lipitor] 40 mg PO QHS 04/09/18 Calcium (Elemental) [Os-Antonio 500] 500 mg PO DAILY@0800 04/09/18 Clopidogrel Bisulfate [Clopidogrel] 75 mg PO DAILY 04/09/18 Diltiazem HCl [Cartia Xt] 180 mg PO DAILY 04/09/18 Echinacea 1 tablet PO DAILY 04/09/18 Ferrous Sulfate 325 mg PO DAILY@0800 04/09/18 Fluticasone/Salmeterol [Advair 250-50 Diskus] 2 puff IH DAILY 04/09/18 Furosemide [Lasix] 40 mg PO BIDLX 04/09/18 Glucosamine Sulf/Chondroitin A [Glucosamine-Chondroitin Cap] 1 each PO DAILY 04/09/18 Ipratropium/Albuterol Sulfate [Duoneb] 3 ml INHALATION Q4H.RT 04/09/18 Losartan Potassium [Cozaar] 50 mg PO DAILY 04/09/18 Potassium Gluconate 1 tab PO DAILY 04/09/18 Umeclidinium [place] [Incruse Ellipta] 1 inh INHALATION DAILY 04/09/18 Aspirin [Aspirin, Baby] 81 mg PO DAILY@0800 tab.chew 04/17/18 Prednisone 10 mg PO DAILY #30 tab 04/17/18 The following prescriptions were given: Prednisone 10 mg PO DAILY #30 tab Primary Care Physician: Hernan Murray MD [Primary Care Provider] - Within 2 Weeks Test Results: Test results from this visit will be discussed in further detail at your follow-up appointment, if applicable. Please Follow Up With: Lisa Kellogg NP-C When: 2-4 weeks Please Follow Up With: [facility] When: 1-2 months Proposed Discharge Date: 04/17/18
--- NOTE | 2018-04-17 12:08 | PCM.DC.SUM ---
Discharge Date and Diagnosis - Problem List Patient Problems: Active and Suspected Problems NSTEMI (non-ST elevated myocardial infarction) (Acute) Healthcare-associated pneumonia (Acute) Acute respiratory failure (Acute) COPD (chronic obstructive pulmonary disease) (Acute) CAD (coronary artery disease) (Acute) Date of Admission: 04/09/18 Date of Discharge: 04/17/18 - Primary Discharge Diagnosis Active and Suspected Problems NSTEMI (non-ST elevated myocardial infarction) (Acute) Healthcare-associated pneumonia (Acute) Acute respiratory failure (Acute) COPD (chronic obstructive pulmonary disease) (Acute) CAD (coronary artery disease) (Acute) - Secondary Discharge Diagnosis Chronic Problems Chronic atrial fibrillation (Chronic) Hospital Course and Treatment Imaging Results: Clinical Impression(s) from Imaging Studies Brain CT 04/09/18 03:53 IMPRESSION: Chronic involutional changes of the brain. There is no acute intracranial pathology. Electronically Signed: Porsche Jacinto MD at 6:45 EDT , Service support , Chest X-Ray 04/09/18 04:35 IMPRESSION: Lines as above. Predominant right-sided airspace disease possibly inflammatory/infectious in nature. Electronically Signed: Porsche Jacinto MD at 5:34 EDT , Service support , KUB X-Ray 04/09/18 04:35 IMPRESSION: Enteric tube in good position. Right greater than left airspace disease. Electronically Signed: Porsche Jacinto MD at 5:36 EDT , Service support , Chest X-Ray 04/09/18 07:40 IMPRESSION: 1. Appropriate positioning of endotracheal tube. 2. Unchanged appearance to bilateral airspace disease, right greater than left. Electronically Signed: Fiona Serrano MD at 8:26 EDT , Service support , Chest X-Ray 04/11/18 08:25 IMPRESSION: Improving right-sided airspace disease. Life support tubes and catheters, as detailed above. Electronically Signed: Jim Gardner DO at 8:55 EDT Tel , Service support , Chest X-Ray 04/12/18 06:40 IMPRESSION: Progressive opacification of the right hemithorax. Improved aeration of the left lung base. Mild residual CHF. Electronically Signed: Clement Liu MD at 13:02 EDT Tel [phone], Service support , Bj Gomez Procedures: 2-D Echocardiogram - Ejection fraction of 55%. Septal motion consistent with IVCD. Left atrial enlargement. Mild focal aortic valve calcification. Mild aortic stenosis. Diastolic dysfunction., Intubation Summary of Care Provided: The patient is a 62 year old M presents with respiratory failure. 1. Acute on chronic hypercapnic respiratory failure Intubated and subsequently extubated Multifactorial due to gram-negative pneumonia and CHF but also patient's known COPD, cor pulmonale and treated sleep apnea Patient has oxygen at home 4 L/min. 2. Suspected gram-negative pneumonia Sputum culture was negative. Urinary antigens for Streptococcus and Legionella were also negative Completed course of Levaquin 3. Heart failure with preserved ejection fraction Fraction of 55% from echocardiogram from 04/12/2018 Patient's current weight is down to 158 kg. Patient's initial weight was 178 kg but I do not suspect that that it was accurate. Patient's weight is down nonetheless. Continue with 40 mg daily of Lasix Continue with losartan 50 Follow-up with cardiology as outpatient 4. Non-STEMI Troponin peaked as high as 0.245 I suspect a type II event given the patient's respiratory failure, pneumonia and heart failure Patient declining any cardiac intervention stating that if he were to have a heart cath he would have a 99.9% chance of requiring a CABG. I informed him that those statistics are completely inaccurate and people requiring CABG are certainly in the minority. Nonetheless he still does not wish to have a cardiac catheterization. in the meantime, will just be continued medical management with dual antiplatelet therapy high intensity statin. 5. Debility Patient has declined home therapy. Plan: Patient is discharged, it is just straight discharged home. 6. Afib: amiodarone discontinued due to prolonged QTc continue Eliquis and diltiazem follow up with cardiology as outpt.[] Discharge Diet: Low fat/ Low Cholesterol Discharge Activity: Return to Normal Activity Call your doctor if you observe: Fever of 101 or Higher, Shortness of breath, Chest pain Home Medications: Medications to take at Discharge Albuterol Inhaler [Ventolin Hfa] 1 - 2 puff INHALATION Q4H PRN PRN 04/09/18 Amlodipine [Norvasc] 10 mg PO DAILY 04/09/18 Apixaban [Eliquis] 5 mg PO BID 04/09/18 Aspirin [Aspirin, Baby] 81 mg PO DAILY@0800 04/09/18 Atorvastatin Calcium [Lipitor] 40 mg PO QHS 04/09/18 Calcium (Elemental) [[place] 500] 500 mg PO DAILY@0800 04/09/18 Clopidogrel Bisulfate [Clopidogrel] 75 mg PO DAILY 04/09/18 Diltiazem HCl [Cartia Xt] 180 mg PO DAILY 04/09/18 Echinacea 1 tablet PO DAILY 04/09/18 Ferrous Sulfate 325 mg PO DAILY@0800 04/09/18 Fluticasone/Salmeterol [Advair 250-50 Diskus] 2 puff IH DAILY 04/09/18 Furosemide [Lasix] 40 mg PO BIDLX 04/09/18 Glucosamine Sulf/Chondroitin A [Glucosamine-Chondroitin Cap] 1 each PO DAILY 04/09/18 Ipratropium/Albuterol Sulfate [Duoneb] 3 ml INHALATION Q4H.RT 04/09/18 Losartan Potassium [Cozaar] 50 mg PO DAILY 04/09/18 Potassium Gluconate 1 tab PO DAILY 04/09/18 Umeclidinium [place] [Incruse Ellipta] 1 inh INHALATION DAILY 04/09/18 Aspirin [Aspirin, Baby] 81 mg PO DAILY@0800 tab.chew 04/17/18 Potassium Chloride [K-Dur] 10 meq PO DAILY #30 tab 04/17/18 Prednisone 10 mg PO DAILY #30 tab 04/17/18 Following Prescrptions Were Given to Patient: Potassium Chloride [K-Dur] 10 meq PO DAILY #30 tab Prednisone 10 mg PO DAILY #30 tab Primary Care Physician: Hernan Murray MD [Primary Care Provider] - Within 2 Weeks Please Follow Up With: Lisa Kellogg NP-C When: 2-4 weeks Please Follow Up With: [facility] When: 1-2 months Disposition: Home Minutes spent on discharge:: 35 Patient Condition:: Fair Medical Necessity - Tobacco Use Smoking Status: Former smoker Tobacco Use: - Meaningful Use Info Meaningful Use Diagnoses (Choose all that apply): AMI, CHF - AMI Aspirin given w/in 24hrs of arrival?: Yes ASA at discharge?: Yes Statins at discharge?: Yes Mp/ARB at discharge?: Yes Beta Meng at discharge?: No Reason Beta Meng not ordered:: Drug Interaction Done w/ Acute [place] measure.: Yes - CHF MP/ARB ordered at discharge?: Yes Documented LVEF (%): 55 Code Visit Inpatient E&M: 35009 Disch Hosp
--- NOTE | 2018-04-17 12:13 | DS.PCM_ITS ---
Discharge Date and Diagnosis - Problem List Patient Problems: Active and Suspected Problems NSTEMI (non-ST elevated myocardial infarction) (Acute) Healthcare-associated pneumonia (Acute) Acute respiratory failure (Acute) COPD (chronic obstructive pulmonary disease) (Acute) CAD (coronary artery disease) (Acute) Date of Admission: 04/09/18 Date of Discharge: 04/17/18 - Primary Discharge Diagnosis Active and Suspected Problems NSTEMI (non-ST elevated myocardial infarction) (Acute) Healthcare-associated pneumonia (Acute) Acute respiratory failure (Acute) COPD (chronic obstructive pulmonary disease) (Acute) CAD (coronary artery disease) (Acute) - Secondary Discharge Diagnosis Chronic Problems Chronic atrial fibrillation (Chronic) Hospital Course and Treatment Imaging Results: Clinical Impression(s) from Imaging Studies Brain CT 04/09/18 03:53 IMPRESSION: Chronic involutional changes of the brain. There is no acute intracranial pathology. Electronically Signed: Porsche Jacinto MD at 6:45 EDT , Service support , Chest X-Ray 04/09/18 04:35 IMPRESSION: Lines as above. Predominant right-sided airspace disease possibly inflammatory/infectious in nature. Electronically Signed: Porsche Jacinto MD at 5:34 EDT , Service support , KUB X-Ray 04/09/18 04:35 IMPRESSION: Enteric tube in good position. Right greater than left airspace disease. Electronically Signed: Porsche Jacinto MD at 5:36 EDT , Service support , Chest X-Ray 04/09/18 07:40 IMPRESSION: 1. Appropriate positioning of endotracheal tube. 2. Unchanged appearance to bilateral airspace disease, right greater than left. Electronically Signed: Fiona Serrano MD at 8:26 EDT , Service support , Chest X-Ray 04/11/18 08:25 IMPRESSION: Improving right-sided airspace disease. Life support tubes and catheters, as detailed above. Electronically Signed: Jim Gardner DO at 8:55 EDT Tel , Service support , Chest X-Ray 04/12/18 06:40 IMPRESSION: Progressive opacification of the right hemithorax. Improved aeration of the left lung base. Mild residual CHF. Electronically Signed: Clement Liu MD at 13:02 EDT Tel [phone], Service support , Bj Gomez Procedures: 2-D Echocardiogram - Ejection fraction of 55%. Septal motion consistent with IVCD. Left atrial enlargement. Mild focal aortic valve calcification. Mild aortic stenosis. Diastolic dysfunction., Intubation Summary of Care Provided: The patient is a 62 year old M presents with respiratory failure. 1. Acute on chronic hypercapnic respiratory failure * Intubated and subsequently extubated * Multifactorial due to gram-negative pneumonia and CHF but also patient's known COPD, cor pulmonale and treated sleep apnea * Patient has oxygen at home 4 L/min. 2. Suspected gram-negative pneumonia * Sputum culture was negative. Urinary antigens for Streptococcus and Legionella were also negative * Completed course of Levaquin 3. Heart failure with preserved ejection fraction * Fraction of 55% from echocardiogram from 04/12/2018 * Patient's current weight is down to 158 kg. Patient's initial weight was 178 kg but I do not suspect that that it was accurate. Patient's weight is down nonetheless. * Continue with 40 mg daily of Lasix * Continue with losartan 50 * Follow-up with cardiology as outpatient 4. Non-STEMI * Troponin peaked as high as 0.245 * I suspect a type II event given the patient's respiratory failure, pneumonia and heart failure * Patient declining any cardiac intervention stating that if he were to have a heart cath he would have a 99.9% chance of requiring a CABG. I informed him that those statistics are completely inaccurate and people requiring CABG are certainly in the minority. Nonetheless he still does not wish to have a cardiac catheterization. * in the meantime, will just be continued medical management with dual antiplatelet therapy high intensity statin. 5. Debility * Patient has declined home therapy. * Plan: Patient is discharged, it is just straight discharged home. 6. Afib: * amiodarone discontinued due to prolonged QTc * continue Eliquis and diltiazem * follow up with cardiology as outpt.[] Discharge Diet: Low fat/ Low Cholesterol Discharge Activity: Return to Normal Activity Call your doctor if you observe: Fever of 101 or Higher, Shortness of breath, Chest pain Home Medications: Medications to take at Discharge Albuterol Inhaler [Ventolin Hfa] 1 - 2 puff INHALATION Q4H PRN PRN 04/09/18 Amlodipine [Norvasc] 10 mg PO DAILY 04/09/18 Apixaban [Eliquis] 5 mg PO BID 04/09/18 Aspirin [Aspirin, Baby] 81 mg PO DAILY@0800 04/09/18 Atorvastatin Calcium [Lipitor] 40 mg PO QHS 04/09/18 Calcium (Elemental) [[place] 500] 500 mg PO DAILY@0800 04/09/18 Clopidogrel Bisulfate [Clopidogrel] 75 mg PO DAILY 04/09/18 Diltiazem HCl [Cartia Xt] 180 mg PO DAILY 04/09/18 Echinacea 1 tablet PO DAILY 04/09/18 Ferrous Sulfate 325 mg PO DAILY@0800 04/09/18 Fluticasone/Salmeterol [Advair 250-50 Diskus] 2 puff IH DAILY 04/09/18 Furosemide [Lasix] 40 mg PO BIDLX 04/09/18 Glucosamine Sulf/Chondroitin A [Glucosamine-Chondroitin Cap] 1 each PO DAILY Ipratropium/Albuterol Sulfate [Duoneb] 3 ml INHALATION Q4H.RT 04/09/18 Losartan Potassium [Cozaar] 50 mg PO DAILY 04/09/18 Potassium Gluconate 1 tab PO DAILY 04/09/18 Umeclidinium [place] [Incruse Ellipta] 1 inh INHALATION DAILY 04/09/18 Aspirin [Aspirin, Baby] 81 mg PO DAILY@0800 tab.chew 04/17/18 Potassium Chloride [K-Dur] 10 meq PO DAILY #30 tab 04/17/18 Prednisone 10 mg PO DAILY #30 tab 04/17/18 Following Prescrptions Were Given to Patient: Potassium Chloride [K-Dur] 10 meq PO DAILY #30 tab Prednisone 10 mg PO DAILY #30 tab Primary Care Physician: Hernan Murray MD [Primary Care Provider] - Within 2 Weeks Please Follow Up With: Lisa Kellogg NP-C When: 2-4 weeks Please Follow Up With: [facility] When: 1-2 months Disposition: Home Minutes spent on discharge:: 35 Patient Condition:: Fair Medical Necessity - Tobacco Use Smoking Status: Former smoker Tobacco Use: - Meaningful Use Info Meaningful Use Diagnoses (Choose all that apply): AMI, CHF - AMI Aspirin given w/in 24hrs of arrival?: Yes ASA at discharge?: Yes Statins at discharge?: Yes Mp/ARB at discharge?: Yes Beta Meng at discharge?: No Reason Beta Meng not ordered:: Drug Interaction Done w/ Acute [place] measure.: Yes - CHF MP/ARB ordered at discharge?: Yes Documented LVEF (%): 55 Code Visit Inpatient E&M: 89525 Disch Hosp
== END 2018-04-17 14:04 | disposition home or self-care (01) | DRG 280 ==
LOC: ED 06:02 → ICU 06:40 → PCU 04-15 11:11
PROVIDERS: Internal Medicine; Internal Medicine Critical Care Medicine; Admitting Provider Hospitalist; Emergency Provider Emergency Medicine; Family Provider Family Medicine; PCP Family Medicine
DX: I21.4 Non-ST elevation (NSTEMI) myocardial infarction (principal); J96.22 Acute and chronic respiratory failure with hypercapnia; J96.21 Acute and chronic respiratory failure with hypoxia; J15.6 Pneumonia due to other Gram-negative bacteria; I50.23 Acute on chronic systolic (congestive) heart failure; J44.9 Chronic obstructive pulmonary disease, unspecified; I25.10 Atherosclerotic heart disease of native coronary artery without angina pectoris; I48.2 Chronic atrial fibrillation; Z79.82 Long term (current) use of aspirin; I27.29 Other secondary pulmonary hypertension; I44.7 Left bundle-branch block, unspecified; E11.9 Type 2 diabetes mellitus without complications; E66.01 Morbid (severe) obesity due to excess calories; E78.5 Hyperlipidemia, unspecified; N18.2 Chronic kidney disease, stage 2 (mild); I12.9 Hypertensive chronic kidney disease with stage 1 through stage 4 chronic kidney disease, or unspecified chronic kidney disease; Z91.19 Patient's noncompliance with other medical treatment and regimen; Z66 Do not resuscitate
CPT/HCPCS: 31500; 31720; 36569; 36600; 51702; 70450; 71045; 74018; 80048; 80053; 81001; 82803; 82962; 83605; 83735; 83880; 84100; 84484; 85025; 85027; 85610; 85730; 87040; 87070; 87077; 87086; 87088; 87186; 87205; 87449; 87633; 87641; 93005; 93306; 94002; 94003; 94640; 94660; 95831; 97110; 97162; 97166; 97530; 97535; 97802; 97803; 99251; 99285; J7030; J7040; J7050; Q9957; A4216; C8929; G0463; J1940

== ENCOUNTER 2018-06-12 14:19 | Inpatient (IN) | payer OTHER, SELFPAY ==
[2018-06-12] VITALS (14 sets, daily range): BP systolic 126–154; BP diastolic 57–86; PULSE 59–75; RESP 16–34; TEMP 36.5–37.2; O2SAT 92–96; BMI 47.5; BMI 45.1; BMI 47.6
--- NOTE | 2018-06-12 14:26 | EKG12_ITS ---
Test Reason : A-FIB Blood Pressure : / mmHG Vent. Rate : 069 BPM Atrial Rate : 069 BPM P-R Int : 156 ms QRS Dur : 178 ms QT Int : 530 ms P-R-T Axes : -07 051 118 degrees QTc Int : 567 ms Normal sinus rhythm Left bundle branch block Abnormal ECG Confirmed by TENA HERRERA, SANTHOSH ([id number]), book or script editor AZRA DOBBINS ([id number] on 06/14/2018 2:44:19 PM Referred By: MARVA Confirmed By:SANTHOSH MADSEN MD
--- NOTE | 2018-06-12 14:34 | ED.DCSUM_ITS ---
- ER Visit Summary Date of Service: 06/12/18 Chief Complaint: Shortness of breath History of Present Illness: The patient is a 62 M who presents for shortness of breath, worse today. Patient has a history of COPD and CHF, and is on oxygen at home. He is having increased work of breathing today. He noted this morning when he got up his heart rate was 107, and thus he took a double dose of his amiodarone, which he is on for a flutter. He felt like his heart rate improved. He continues to be short of breath and increased his oxygen use today. He has associated sore throat secondary to using the oxygen through his mouth. He denies any chest pain, nausea or vomiting, abdominal pain. He has lower extremity edema secondary to heart failure normally wears compression stockings, however he states he was unable to put them on because of his shortness of breath today. Patient states Dr. Oro told him he needs a stent but the patient does not want to have that performed. Patient is DNR per medical alert bracelet. Physical Examination: Vital signs: afebrile, hemodynamically stable, no hypoxia on room air General: well nourished, well developed, in moderate respiratory distress Skin: warm, dry, no rash, no pallor HEENT: normocephalic and atraumatic; PERRL, EOMI, dry mucous membranes, nasal cannula in the mouth Cardiovascular: regular rate and rhythm without murmurs, symmetric 2+ pitting peripheral edema, 2+ pulses all distal extremities Respiratory: increased work of breathing, lungs are globally diminished with mild adventitious sounds appreciated Abdominal: Abdomen is soft, obese, nontender with normoactive bowel sounds, no guarding or rebound, no masses MSK: Moves all extremities, no deformities, normal strength Neuro: Awake and alert, oriented ?4. No facial droop, sensation and motor function intact and symmetric Test Results: Medications Given Piperacillin Sod/Tazobactam Sod (Zosyn) 4.5 gm in 100 mls @ 200 mls/hr IV X1 ONE Stop: 06/12/18 16:01 Vancomycin HCl (Vancomycin) 1,000 mg in 200 mls @ 200 mls/hr IV Q1H WILLIAMS Stop: 06/12/18 18:29 Sodium Chloride () 500 mls @ 999 mls/hr IV .Q31M WILLIAMS Stop: 06/12/18 16:15 Discontinued Medications Albuterol Sulfate (Ventolin Aerosols) 2.5 mg INHALATION Q20M WILLIAMS Stop: 06/12/18 15:11 Last Admin: 06/12/18 15:53 Dose: Not Given Admin: 06/12/18 15:41 Dose: 2.5 mg Admin: 06/12/18 14:47 Dose: 2.5 mg Albuterol/Ipratropium (Duoneb) 3 ml INHALATION X1 ONE Stop: 06/12/18 14:27 Last Admin: 06/12/18 14:47 Dose: 3 ml Prednisone () 60 mg PO X1 ONE Stop: 06/12/18 14:29 Last Admin: 06/12/18 14:39 Dose: 60 mg Clinical Impression(s) from Imaging Studies Chest X-Ray 06/12/18 15:09 IMPRESSION: Right upper lobe right middle lobe infiltrate suspicious for pneumonia. Bilateral effusions and atelectasis. Electronically Signed: Polina Suarez MD at 15:23 EDT Tel , Service support , Abnormal Lab Results 06/12/18 06/12/18 06/12/18 14:45 14:45 14:45 WBC 13.6 H RBC 4.07 L Hgb 12.0 L Hct 37.2 L MCV 91.4 MCH 29.5 MCHC 32.3 RDW 15.2 H RDW Differential 49.6 H Plt Count 254 MPV 10.1 Immature Gran % (Auto) 0.700 Neut % (Auto) 91.5 H Lymph % (Auto) 3.0 L [place] % (Auto) 4.7 Eos % (Auto) 0.0 Baso % (Auto) 0.1 Absolute Neuts (auto) 12.5 H Absolute Lymphs (auto) 0.41 L Total Counted Not Reportable Differential Comment SCANNED Sodium 143 Potassium 4.3 Chloride 109 H Carbon Dioxide 27.0 Anion Gap 7 BUN 19 H Creatinine 1.35 H Estim Creat Clear Calc 64.27 Est GFR (MDRD) Af Amer 68 Est GFR (MDRD) Non-Af 56 L BUN/Creatinine Ratio 14.1 Glucose 101 Lactic Acid 1.7 Calcium 8.9 Troponin I 0.334 H B-Natriuretic Peptide 06/12/18 14:45 WBC RBC Hgb Hct MCV MCH MCHC RDW RDW Differential Plt Count MPV Immature Gran % (Auto) Neut % (Auto) Lymph % (Auto) [place] % (Auto) Eos % (Auto) Baso % (Auto) Absolute Neuts (auto) Absolute Lymphs (auto) Total Counted Differential Comment Sodium Potassium Chloride Carbon Dioxide Anion Gap BUN Creatinine Estim Creat Clear Calc Est GFR (MDRD) Af Amer Est GFR (MDRD) Non-Af BUN/Creatinine Ratio Glucose Lactic Acid Calcium Troponin I B-Natriuretic Peptide 176.8 H Emergency Department Course and Treatment: Oxygen was continued. Patient was given breathing treatments due to his diminished sounds and shortness of breath, with some improvement in his respiratory effort. Patient continued to be tachypneic and mildly short of breath. Patient's EKG showed a left bundle branch block at a rate of 72 without any ischemic changes per Sgar[place]ossa criteria. Unchanged from prior. He is not in a- flutter at this time, which is his concern. Troponin is elevated at 0.33. Patient has known coronary artery disease but has refused intervention in the past. Patient had leukocytosis on his CBC with neutrophil predominance. He states he has not been on any prednisone for quite some time, thus this is likely leukocytosis secondary to infection rather than steroid use. Chest x-ray showed concerning right upper and middle lobe infiltrates. Patient's BNP was mildly elevated but comparable to prior values. Patient was started on vancomycin and Zosyn for coverage for healthcare associated pneumonia, given that last month he was in the hospital for pneumonia and intubated. Patient will be admitted for further management of healthcare associated pneumonia and shortness of breath, with concern for ACS vs. secondary cardiac ischemia given the elevated troponin. Patient was just discussed with Dr. Anne and admitted to the PCU. Treatment Plan: [] Disposition: [] Impression: PNA (HAP), acute shortness of breath, elevated troponin This note was generated with [employer] dictation software. It may contain incorrect words, spelling, and punctuation that were not noted in review of the chart prior to signing ED Disposition - Plan for ED Patient: Chief Complaint: Shortness of Breath Referrals: Hernan Murray MD [Primary Care Provider] -
[2018-06-12] MEDS: predniSONE 20 MG Tablet 60 MG PO (14:39)
[2018-06-12] MEDS: Ipratropium/Albuterol Sulfate 3 ML AMPUL.NEB INHALATION ×2 (14:47→19:30)
[2018-06-12] MEDS: Albuterol 2.5 MG/3 ML VIAL.NEB. INHALATION ×2 (14:47→15:41)
[2018-06-12 15:02] LABS: Absolute Lymphocyte Count 0.41 X10^3/ul (0.83-4.51); Absolute Neutrophil Count 12.5 X10^3/uL (2.0-7.7); Basophil# 0.02 X10^3/uL; Basophil% 0.1 % (0-1); Differential Indicated SCAN CRITERIA MET; Hematocrit 37.2 % (40-54); Lymphocyte # 0.41 X10^3/ul (4.0); Mean Corp Hgb Conc 32.3 g/gl (32-36); Mean Corpuscular Hgb 29.5 pg (27.0-32.0); Mean Corpuscular Volume 91.4 fL (80-94); Mean Platelet Vol. 10.1 fl (6.2-12.0); Monocyte# 0.64 X10^3/uL; Monocyte% 4.7 % (0-10); Neutrophil # 12.47 X10^3/uL (2.7-7.7); Neutrophil % 91.5 % (47-70); POSITIVE COUNT NO; POSITIVE DIFFERENTIAL YES; POSITIVE MORPHOLOGY NO; Platelet Count 254 K/mm3 (150-450); RBC Distribution Width CV 15.2 % (11.6-14.6); RBC Distribution Width SD 49.6 fl (35.1-43.9); Red Blood Count 4.07 M/mm3 (4.6-6.2); White Blood Count 13.6 K/mm3 (4.4-11.0)
--- NOTE | 2018-06-12 15:09 | RAD_ITS ---
STUDY: X-RAY CHEST REASON FOR EXAM: Male, 62 years old. Shortness of breath increase TECHNIQUE: PA and lateral views of the chest. COMPARISON: March 20, 2018 chest 6 FINDINGS: There is worsening opacity within the right upper lobe and right middle lobe when compared to prior study. There is blunting of the costophrenic angles. . Normal size heart. Normal mediastinum and asaf. Normal visualized pulmonary arteries. Normal visualized aortic arch and descending thoracic aorta. There are diffuse degenerative changes of the visualized thoracic spine. Normal visualized ribs, clavicles, and shoulders. There is no demonstrated abnormality of the visualized soft tissue structures of the upper abdomen. RAD/Chest PA and Lateral IMPRESSION: Right upper lobe right middle lobe infiltrate suspicious for pneumonia. Bilateral effusions and atelectasis. Electronically Signed: Polina Suarez MD at 15:23 EDT Tel , Service support ,
[2018-06-12 15:25] LABS: BNP,B-Type NATRIURETIC PEPTIDE 176.8 pg/mL (0-100)
[2018-06-12 15:32] LABS: Anion Gap 7 (5-15); BUN 19 mg/dL (7-18); BUN/Creat Ratio 14.1 RATIO (10-20); Calcium,Total 8.9 mg/dL (8.5-10.1); Chloride 109 mmol/L (98-107); Creatinine, Serum 1.35 mg/dL (0.70-1.30); EST Glomerular Filtration Rate 56 mL/min (>60); Est Glom Filt Rate - Afr Amer 68 mL/min (>60); Estimated Creatinine Clearance 64.27 ml/min; Glucose 101 mg/dL (74-106); Lactic Acid 1.7 mmol/L (0.4-2.0); Potassium 4.3 mmol/L (3.5-5.1); Sodium Level 143 mmol/L (136-145)
[2018-06-12 15:36] LABS: Differential Comment SCANNED
--- NOTE | 2018-06-12 16:44 | HP.PCM_ITS ---
Addendum entered and electronically signed by LINWOOD Patel 06/12/18 17:19: Code Visit CODE STATUS: DNR CCA. Patient states he was intubated during recent admission against his will. States he does not want, under any circumstances, to be intubated again. Does not want any aggressive testing or treatment. Original Note: Problem List (1) Healthcare-associated pneumonia Status: Acute (2) Chronic atrial fibrillation Status: Chronic (3) COPD (chronic obstructive pulmonary disease) Status: Chronic (4) CAD (coronary artery disease) Status: Chronic (5) NSTEMI (non-ST elevated myocardial infarction) Status: Resolved (6) Left bundle branch block Status: Chronic (7) CKD (chronic kidney disease), stage II Status: Chronic (8) Cardiomyopathy Status: Chronic Qualifiers: (9) History of cardioversion Status: Chronic (10) Atrial flutter Status: Chronic Qualifiers: (11) Chronic respiratory failure Status: Chronic Qualifiers: Respiratory failure complication: hypoxia Qualified Code(s): J96.11 - Chronic respiratory failure with hypoxia (12) Hx of decompression of ulnar nerve Status: Resolved (13) Hypertension Status: Chronic Qualifiers: (14) Scar of back Status: Chronic Comment: 5 cm recurrent infected cystic lesion scar right lower medial back (15) Former smoker Status: Chronic Comment: quit 2013 (16) BPH (benign prostatic hypertrophy) Status: Chronic (17) HLD (hyperlipidemia) Status: Chronic Qualifiers: (18) History of CVA (cerebrovascular accident) Status: Chronic Comment: 2012 (19) GERD (gastroesophageal reflux disease) Status: Chronic (20) Stasis dermatitis of both legs Status: Chronic Comment: with hyperpigmentation (21) ANIBAL (obstructive sleep apnea) Status: Chronic (22) Vesico-colic fistula Status: Chronic (23) Pulmonary hypertension Status: Chronic (24) Cor pulmonale Status: Chronic (25) Morbid obesity with BMI of 45.0-49.9, adult Status: Chronic History of Present Illness Date of Admission: 06/12/18 Chief Complaint: Shortness of breath. The patient is a 62 year old M who presents the emergency room due to increased shortness of breath. Patient has chronic hypoxic respiratory failure and wears 4 L nasal cannula at baseline. He states he is supposed to wear BiPAP at night but refuses. He denies fever, chills. Complains of intermittent productive cough with yellow sputum which she states is chronic for him. Patient states he has been feeling weak over the past 1-2 weeks. Denies other URI symptoms. States this morning he woke up very short of breath and states his heart rate was elevated. He reports requiring increased oxygen since this morning. Patient states he was intubated during recent admission in April against his will. He states he does not want intubation or any aggressive medical treatm ent. States If it is my time to leave, I want to take that opportunity. He denies suicidal ideations. His medical history includes chronic renal failure stage II, morbid obesity, pulmonary hypertension, vesicocolic fistula, ANIBAL, GERD, history of CVA, hyperlipidemia, BPH, COPD, hypertension, stasis dermatitis of both legs history of atrial flutter. Patient follows with Dr. Tello and Dr. Oro as outpatient. Past Medical History Past Medical History (Chronic Problems): Chronic Problems (Last Reviewed 04/28/18 @ 11:03 by Lisa Kellogg NP-C) Chronic atrial fibrillation (Chronic) COPD (chronic obstructive pulmonary disease) (Chronic) CAD (coronary artery disease) (Chronic) Left bundle branch block (Chronic) CKD (chronic kidney disease), stage II (Chronic) Cardiomyopathy (Chronic) History of cardioversion (Chronic ~09/07/17) Atrial flutter (Chronic) Chronic respiratory failure (Chronic) Hypertension (Chronic) Scar of back (Chronic) 5 cm recurrent infected cystic lesion scar right lower medial back Former smoker (Chronic) quit 2013 BPH (benign prostatic hypertrophy) (Chronic) HLD (hyperlipidemia) (Chronic) History of CVA (cerebrovascular accident) (Chronic) 2012 GERD (gastroesophageal reflux disease) (Chronic) Stasis dermatitis of both legs (Chronic) with hyperpigmentation ANIBAL (obstructive sleep apnea) (Chronic) Vesico-colic fistula (Chronic) Pulmonary hypertension (Chronic) Cor pulmonale (Chronic) Morbid obesity with BMI of 45.0-49.9, adult (Chronic) Medical History: Medical History (Last Reviewed 04/28/18 @ 11:03 by Lisa Kellogg NP-C) Healthcare-associated pneumonia (Acute) J18.9 Chronic atrial fibrillation (Chronic) I48.2 COPD (chronic obstructive pulmonary disease) (Chronic) J44.9 CAD (coronary artery disease) (Chronic) I25.10 Left bundle branch block (Chronic) I44.7 CKD (chronic kidney disease), stage II (Chronic) N18.2 Cardiomyopathy (Chronic) I42.9 History of cardioversion (Chronic) Onset Date: ~09/07/17 Z98.890 Atrial flutter (Chronic) I48.92 Hypertension (Chronic) I10 Scar of back (Chronic) L90.5 5 cm recurrent infected cystic lesion scar right lower medial back Former smoker (Chronic) Z87.891 quit 2013 BPH (benign prostatic hypertrophy) (Chronic) N40.0 HLD (hyperlipidemia) (Chronic) E78.5 History of CVA (cerebrovascular accident) (Chronic) Z86.73 2012 GERD (gastroesophageal reflux disease) (Chronic) K21.9 Stasis dermatitis of both legs (Chronic) I83.11, I83.12 with hyperpigmentation ANIBAL (obstructive sleep apnea) (Chronic) G47.33 Vesico-colic fistula (Chronic) N32.1 Pulmonary hypertension (Chronic) I27.2 Cor pulmonale (Chronic) I27.81 Morbid obesity with BMI of 45.0-49.9, adult (Chronic) E66.01, Z68.42 CVA (cerebral vascular accident) Onset Date: ~2012 I63.9 NSTEMI (non-ST elevated myocardial infarction) (Resolved) I21.4 Allergies cashew nut Allergy (Verified 06/12/18 14:20) Vomiting cortisone [Cortisone] Allergy (Verified 06/12/18 14:20) Itching CASHEW Adverse Reaction (Uncoded 06/12/18 14:20) Vomiting Home Medications: Ambulatory Orders Medication Instructions Recorded Fluticasone/Salmeterol [Advair 2 puff INHALATION DAILY 11/29/17 250-50 Diskus] umeclidinium 62.5 mcg/actuation 1 inh INHALATION QDAY #30 ea 02/24/18 blister powder for inhalation amiodarone 200 mg tablet 200 mg PO BID #60 tab 04/04/18 Albuterol Inhaler [Ventolin Hfa] 1 - 2 puff INHALATION Q4H PRN PRN 04/09/18 Amlodipine [Norvasc] 10 mg PO DAILY 04/09/18 Aspirin [Aspirin, Baby] 81 mg PO DAILY@0800 04/09/18 Atorvastatin Calcium [Lipitor] 40 mg PO QHS 04/09/18 Calcium (Elemental) [[place] 500] 500 mg PO DAILY@0800 04/09/18 Clopidogrel Bisulfate [Clopidogrel] 75 mg PO DAILY 04/09/18 Diltiazem HCl [Cartia Xt] 180 mg PO DAILY 04/09/18 Ferrous Sulfate 325 mg PO DAILY@0800 04/09/18 Furosemide [Lasix] 40 mg PO BIDLX 04/09/18 Glucosamine Sulf/Chondroitin A 1 each PO DAILY 04/09/18 [Glucosamine-Chondroitin Cap] Ipratropium/Albuterol Sulfate 3 ml INHALATION BID 04/09/18 [Duoneb] Losartan Potassium [Cozaar] 50 mg PO DAILY 04/09/18 Potassium Chloride [K-Dur] 10 meq PO DAILY #30 tab 04/17/18 Surgical History: Surgical History (Last Reviewed 04/28/18 @ 11:03 by LINWOOD Mobley) Hx of decompression of ulnar nerve (Resolved) Z98.890 Surgical History: - - Cyst removal lower back, ulnar relocation right elbow. Psychiatric History: No pertinent psych hx Lives: Alone Smoking Status: Former smoker Alcohol: None Drugs: None - *Family History Maternal Family History: Family History (This Medical Record has been edited. Action required.) Mother Cancer Brother Sudden cardiac Father Heart disease History Items: Cancer - Lung and brain cancer Paternal Family History: Family History (This Medical Record has been edited. Action required.) Mother Cancer Brother Sudden cardiac Father Heart disease History Items: Heart Disease - father of a cardiomyopathy Sibling Family History: Family History (This Medical Record has been edited. Action required.) Mother Cancer Brother Sudden cardiac Father Heart disease History Items: - - brother dropped at 60 drinking a beer Review of Systems Constitutional: Denies: Chills, Fever, Weight Change HEENT: Denies: Head Aches, Sinus Congestion, Sinus Drainage Respiratory: Reports: Cough - Intermittent with yellow sputum production., Shortness of Breath Gastrointestinal: Denies: Abdominal Pain, Nausea, Vomiting Genitourinary: Denies: Dysuria Musculoskeletal: Denies: Joint Pain, Joint Tenderness Skin: Denies: Rash, Wounds Neurological: Denies: Numbness, Tingling, Focal weakness Psychiatric: Denies: Anxiety, Depression, Homicidal Ideations, Suicidal Id eations Hematologic/ Lymphatic: Denies: Easy Bruising, Easy Bleeding VTE Information - Inpt Only VTE Present on Admission: No VTE Mechan Device Prophylaxis: None VTE Pharm Prophylaxis ordered?: Yes - Physical Exam General: Alert, Oriented x3, Cooperative, - - Moderate respiratory distress after ambulating to restroom. Unkempt. HEENT: Atraumatic, PERRLA, EOMI, Normocephalic Neck: Supple, No JVD, Negative Carotid Bruits Lungs: Clear to auscultation, Diminished, Tachypneic Cardiovascular: Regular rate, Regular Rhythm, Normal S1, Normal S2, No murmurs Abdomen: Bowel Sounds Present, Soft, Non Tender, Non-Distended, Obese Extremities: No clubbing, No cyanosis, Edema - BLLE Skin: No rashes, No breakdown, - - Chronic skin changes BLLE Musculoskeletal: No Tenderness to Palpation of Joints or Extremities Neurological: Cranial nerves II-XII grossly intact, Neuro grossly intact Psych/Mental Status: Normal Affect, Appropriate Vital Signs Temp Pulse Resp BP Pulse Ox 98.9 F 63 24 H 139/68 H 95 06/12/18 14:19 06/12/18 16:21 06/12/18 16:21 06/12/18 16:21 06/12/18 16:21 Oxygen Flow Rate (L/min) 4 Oxygen Delivery Method Nasal Cannula Weight: 370 lb 6.025 oz Body Mass Index (BMI) 47.5 Finger Stick Blood Glucose 120 Laboratory Tests Past 24 Hrs 06/12/18 06/12/18 06/12/18 14:45 14:45 14:45 WBC 13.6 H RBC 4.07 L Hgb 12.0 L Hct 37.2 L MCV 91.4 MCH 29.5 MCHC 32.3 RDW 15.2 H RDW Differential 49.6 H Plt Count 254 MPV 10.1 Immature Gran % (Auto) 0.700 Neut % (Auto) 91.5 H Lymph % (Auto) 3.0 L Overton % (Auto) 4.7 Eos % (Auto) 0.0 Baso % (Auto) 0.1 Absolute Neuts (auto) 12.5 H Absolute Lymphs (auto) 0.41 L Total Counted Not Reportable Differential Comment SCANNED Sodium 143 Potassium 4.3 Chloride 109 H Carbon Dioxide 27.0 Anion Gap 7 BUN 19 H Creatinine 1.35 H Estim Creat Clear Calc 64.27 Est GFR (MDRD) Af Amer 68 Est GFR (MDRD) Non-Af 56 L BUN/Creatinine Ratio 14.1 Glucose 101 Lactic Acid 1.7 Calcium 8.9 Troponin I 0.334 H B-Natriuretic Peptide 06/12/18 14:45 WBC RBC Hgb Hct MCV MCH MCHC RDW RDW Differential Plt Count MPV Immature Gran % (Auto) Neut % (Auto) Lymph % (Auto) Overton % (Auto) Eos % (Auto) Baso % (Auto) Absolute Neuts (auto) Absolute Lymphs (auto) Total Counted Differential Comment Sodium Potassium Chloride Carbon Dioxide Anion Gap BUN Creatinine Estim Creat Clear Calc Est GFR (MDRD) Af Amer Est GFR (MDRD) Non-Af BUN/Creatinine Ratio Glucose Lactic Acid Calcium Troponin I B-Natriuretic Peptide 176.8 H Assessment/Plan All Active Problems (Last Reviewed 04/28/18 @ 11:03 by Lisa Kellogg, [employer]CL[employer] INSTRUCTOR-C) Healthcare-associated pneumonia (Acute) Hx of decompression of ulnar nerve (Resolved) Cellulitis of back [any part except buttock] (Resolved) NSTEMI (non-ST elevated myocardial infarction) (Resolved) Non-STEMI (non-ST elevated myocardial infarction) (Resolved) 1. Acute on chronic hypoxic respiratory failure secondary to acute right upper lobe/right middle lobe community acquired pneumonia-chest x-ray on admission with right upper lobe and right middle lobe infiltrate. Elevated WBC. Afebrile. Continue supplemental oxygen to maintain O2 at or above 90%. Albuterol and DuoNeb aerosol. Send sputum for culture. Check urine for strep and Legionella. Continue IV Zosyn and vancomycin. Mucinex 1200 mg p.o. twice daily. Check flu panel. Blood cultures drawn in ER. Dr. Tello, pulmonary medicine consulted. PEP/IS. 2. Chronic diastolic CHF-Echocardiogram 04/12/2018 with EF 55%, septal motion consistent with IVCD, mild aortic stenosis, evidence of diastolic dysfunction. Continue home Lasix regimen, losartan. 3. Chronic elevated troponin/Hx of NSTEMI-patient has history of indeterminate troponins during previous admissions. Follows with Dr. Oro. Patient has refused cardiac catheterization in the past. Patient on admission notes he does not want any workup for his heart including stress test or cardiac catheterization. 4. Chronic iron deficiency anemia-continue iron supplementation. GI workup has been recommended in the past for anemia and patient has refused. 5. Chronic COPD-no acute exacerbation. Patient follows with Dr. Tello as outpatient. Continue albuterol and DuoNeb aerosols. 6. History of atrial flutter-status post JODY/cardioversion August 2017. Continue Cardizem. Patient was previously discharged on Eliquis which she states had to be discontinued due to ulcer. Patient has also been on amiodarone in the past which was discontinued due to prolonged QT. 7. Chronic kidney disease stage II-stable. 8. History of CVA-patient reports residual left-sided numbness/tingling. No focal deficits. Continue aspirin,, Plavix, statin. 9. Hyperlipidemia-continue statin. 10. Obstructive sleep apnea-patient had a polysomnogram 05/29 in which a BIPAP was recommended. Patient refuses BiPAP. 11. Hypertension-stable, continue current regimen including amlodipine, Cardizem, Lasix, losartan. 12. Morbid obesity-BMI 47.6. Encouraged lifestyle and diet modifications. Nutrition consult. DVT prophylaxis-Heparin sc. This patient was seen by LINWOOD Patel under the supervision of Dr. Anne.
[2018-06-12] MEDS: Vancomycin IV 1,000 MG/200 ML BAG 200 MG IV ×2 (17:34→19:26)
[2018-06-12] MEDS: Furosemide 40 MG Tablet PO (17:34)
--- NOTE | 2018-06-12 18:27 | PCM.RX.CS ---
Consult Pharmacy has been consulted to manage selected antiobiotic: Vancomycin Type of Consult: New start Suspected Infection: Pneumonia Labs: Sodium 143 mmol/L (136-145) 06/12/18 14:45 Potassium 4.3 mmol/L (3.5-5.1) 06/12/18 14:45 Chloride 109 mmol/L (98-107) H 06/12/18 14:45 Carbon Dioxide 27.0 mmol/L (21.0-32.0) 06/12/18 14:45 Anion Gap 7 (5-15) 06/12/18 14:45 BUN 19 mg/dL (7-18) H 06/12/18 14:45 Creatinine 1.35 mg/dL (0.70-1.30) H 06/12/18 14:45 Est GFR (MDRD) Af Amer 68 mL/min (>60) 06/12/18 14:45 Est GFR (MDRD) Non-Af 56 mL/min (>60) L 06/12/18 14:45 BUN/Creatinine Ratio 14.1 RATIO (10-20) 06/12/18 14:45 Glucose 101 mg/dL (74-106) 06/12/18 14:45 Microbiology: Microbiology 06/12/18 17:20 Mucosa - Nose Influenza Types A,B Direct FA (SIGRID) - Final Weight used for dosin kg Goal Trough: 15-20 mcg/mL Pharmacy Plan for Drug Dosinmg given in ED, continue 1500mg IV q12h. Trough prior to 4th dose. Pharmacy Service will continue to monitor and adjust dosing as required. Follow-Up Labs: Trough Vancomycin - 06/14 @ 0900, Trough Gentamicin
[2018-06-12] MEDS: Atorvastatin Calcium 40 MG Tablet PO (21:38)
[2018-06-12] MEDS: Heparin Injection (Vial) 5,000 UNIT/ML VIAL 5000 UNIT SC (21:38)
[2018-06-12] MEDS: guaiFENesin 1,200 MG Tablet 1200 MG PO (21:38)
[2018-06-12] MEDS: Piperacil/Tazobactam 3.375 GM/50 ML ML IV (21:38)
[2018-06-13] VITALS (15 sets, daily range): BP systolic 133–145; BP diastolic 57–78; PULSE 54–76; RESP 16–22; TEMP 36.5–36.8; O2SAT 95–99
--- NOTE | 2018-06-13 04:00 | RAD_ITS ---
STUDY: X-RAY CHEST REASON FOR EXAM: Male, 62 years old. Dyspnea. TECHNIQUE: AP portable chest. COMPARISON: June 12, 2018. March 30, 2018. FINDINGS: Borderline cardiomegaly. Minimal bilateral pleural effusions. Improved aeration with significant decrease in right mid and lower lung airspace opacities. There is no demonstrated abnormality of the visualized soft tissue structures of the upper abdomen. RAD/Chest 1 View (Portable) IMPRESSION: Resolving right middle lobe and right lower lobe pneumonias. Stable minimal bilateral pleural effusions. Electronically Signed: Senthil Hamilton MD at 5:22 EDT , Service support ,
[2018-06-13] MEDS: Piperacil/Tazobactam 3.375 GM/50 ML ML IV ×3 (05:26→23:17)
[2018-06-13] MEDS: Heparin Injection (Vial) 5,000 UNIT/ML VIAL 5000 UNIT SC ×3 (05:26→21:07)
[2018-06-13 07:03] LABS: Absolute Lymphocyte Count 0.58 X10^3/ul (0.83-4.51); Absolute Neutrophil Count 10.4 X10^3/uL (2.0-7.7); Basophil# 0.01 X10^3/uL; Basophil% 0.1 % (0-1); Hematocrit 35.3 % (40-54); Hemoglobin 11.2 g/dl (13.0-16.5); Lymphocyte # 0.58 X10^3/ul (4.0); Lymphocyte % 4.9 % (19-41); Mean Corp Hgb Conc 31.7 g/gl (32-36); Mean Corpuscular Hgb 28.9 pg (27.0-32.0); Mean Corpuscular Volume 91.2 fL (80-94); Mean Platelet Vol. 10.1 fl (6.2-12.0); Monocyte# 0.75 X10^3/uL; Monocyte% 6.4 % (0-10); Neutrophil # 10.37 X10^3/uL (2.7-7.7); Neutrophil % 88.1 % (47-70); Platelet Count 213 K/mm3 (150-450); RBC Distribution Width SD 49.3 fl (35.1-43.9); Red Blood Count 3.87 M/mm3 (4.6-6.2); White Blood Count 11.8 K/mm3 (4.4-11.0)
[2018-06-13 07:07] LABS: AST(SGOT) 20 U/L (15-37); Alanine Aminotransfer ALT/SGPT 25 U/L (16-61); Albumin, Serum 3.2 g/dL (3.2-5.0); Alkaline Phosphatase 92 U/L (45-117); Anion Gap 9 (5-15); BUN 22 mg/dL (7-18); BUN/Creat Ratio 16.8 RATIO (10-20); Chloride 107 mmol/L (98-107); Creatinine, Serum 1.31 mg/dL (0.70-1.30); EST Glomerular Filtration Rate 58 mL/min (>60); Est Glom Filt Rate - Afr Amer 71 mL/min (>60); Estimated Creatinine Clearance 69.94 ml/min; Globulin 3.1 g/dL (2.2-4.2); Glucose 124 mg/dL (74-106); Potassium 3.7 mmol/L (3.5-5.1); Protein, Total 6.3 g/dL (6.4-8.2); Sodium Level 142 mmol/L (136-145)
[2018-06-13 07:10] LABS: Differential Indicated SCAN CRITERIA MET; POSITIVE COUNT NO; POSITIVE DIFFERENTIAL YES; POSITIVE MORPHOLOGY NO
[2018-06-13] MEDS: Ipratropium/Albuterol Sulfate 3 ML AMPUL.NEB INHALATION ×3 (07:35→19:29)
--- NOTE | 2018-06-13 08:27 | CON.PCM_ITS ---
Problem List (1) Healthcare-associated pneumonia Status: Acute (2) Chronic atrial fibrillation Status: Chronic (3) COPD (chronic obstructive pulmonary disease) Status: Chronic Qualifiers: COPD type: chronic bronchitis Chronic bronchitis type: mucopurulent Qualified Code(s): J41.1 - Mucopurulent chronic bronchitis (4) CAD (coronary artery disease) Status: Chronic (5) Left bundle branch block Status: Chronic (6) CKD (chronic kidney disease), stage II Status: Chronic (7) Cardiomyopathy Status: Chronic Qualifiers: (8) History of cardioversion Status: Chronic (9) Atrial flutter Status: Chronic Qualifiers: (10) Chronic respiratory failure Status: Chronic Qualifiers: Respiratory failure complication: hypoxia Qualified Code(s): J96.11 - Chronic respiratory failure with hypoxia (11) Hypertension Status: Chronic Qualifiers: (12) Former smoker Status: Chronic Comment: quit 2013 (13) BPH (benign prostatic hypertrophy) Status: Chronic (14) HLD (hyperlipidemia) Status: Chronic Qualifiers: (15) History of CVA (cerebrovascular accident) Status: Chronic Comment: 2012 (16) Stasis dermatitis of both legs Status: Chronic Comment: with hyperpigmentation (17) ANIBAL (obstructive sleep apnea) Status: Chronic (18) Pulmonary hypertension Status: Chronic (19) Morbid obesity with BMI of 45.0-49.9, adult Status: Chronic Reason for Consult Date of Consultation: 06/13/18 Reason for Consultation: Respiratory distress History of Present Illness: The patient is a 62 year old M, with past medical history listed below, who presented to [facility] [place] on 06/12/2018 secondary to increasing shortness of breath. Patient does have a history of CHF and COPD and chronically uses 4 L nasal cannula. Patient had noted some palpitations and an elevated heart rate of 107 bpm. Patient reports he had taken a double dose of amiodarone in an attempt to help his heart rate. Patient denied any chest pain, nausea, vomiting or abdominal pain. Patient does have lower extremity edema, but stated that he had not been using his compression hose. In the emergency room, patient was noted to have normal sinus rhythm with a left bundle branch. Patient did have a leukocytosis, but had reportedly not been on steroids in quite some time. Chest x-ray showed right middle and lower lobe infiltrates. Patient was admitted to the PCU for further evaluation. Overnight, patient feels subjectively improved compared to previous. Patient does report a mild hemoptysis over the last 2-4 weeks. Patient is on 4 L nasal cannula at baseline. Patient states his sputum has been brown in color, which is a change from previous. Patient did not call the office for evaluation. Patient has had multiple admissions in the past with similar type presentations of the last being in the beginning of April. Patient reports he has been compliant with nasal cannula oxygen. Patient denies any epistaxis. Patient has noted lower extremity edema, but he attributes this to his lack of compression hose. Patient denies any recent choking episodes. Patient was previously prescribed to 10 mg of prednisone daily for palliative measures. Patient states he has been trying to make this last. Patient est imates that he has been using it 3-4 times per week. Patient states that he has to leave tomorrow so that he could feed his animals. Patient states that he does not have anyone that can do this for him. Patient does state that if I were to , then there would be arrangements made for them to be adopted. Patient confirmed that he is a DNR Comfort Care arrest without intubation. Review of systems otherwise negative x10 systems. Past Medical History Past Medical History (Chronic Problems): Chronic Problems (Last Reviewed 04/28/18 @ 11:03 by Lisa Kellogg NP-C) Chronic atrial fibrillation (Chronic) COPD (chronic obstructive pulmonary disease) (Chronic) CAD (coronary artery disease) (Chronic) Left bundle branch block (Chronic) CKD (chronic kidney disease), stage II (Chronic) Cardiomyopathy (Chronic) History of cardioversion (Chronic ~09/07/17) Atrial flutter (Chronic) Chronic respiratory failure (Chronic) Hypertension (Chronic) Scar of back (Chronic) 5 cm recurrent infected cystic lesion scar right lower medial back Former smoker (Chronic) quit 2013 BPH (benign prostatic hypertrophy) (Chronic) HLD (hyperlipidemia) (Chronic) History of CVA (cerebrovascular accident) (Chronic) 2012 GERD (gastroesophageal reflux disease) (Chronic) Stasis dermatitis of both legs (Chronic) with hyperpigmentation ANIBAL (obstructive sleep apnea) (Chronic) Vesico-colic fistula (Chronic) Pulmonary hypertension (Chronic) Cor pulmonale (Chronic) Morbid obesity with BMI of 45.0-49.9, adult (Chronic) Medical History: Medical History (Last Reviewed 04/28/18 @ 11:03 by LINWOOD Mobley) Healthcare-associated pneumonia (Acute) J18.9 Chronic atrial fibrillation (Chronic) I48.2 COPD (chronic obstructive pulmonary disease) (Chronic) J44.9 CAD (coronary artery disease) (Chronic) I25.10 Left bundle branch block (Chronic) I44.7 CKD (chronic kidney disease), stage II (Chronic) N18.2 Cardiomyopathy (Chronic) I42.9 History of cardioversion (Chronic) Onset Date: ~09/07/17 Z98.890 Atrial flutter (Chronic) I48.92 Hypertension (Chronic) I10 Scar of back (Chronic) L90.5 5 cm recurrent infected cystic lesion scar right lower medial back Former smoker (Chronic) Z87.891 quit 2013 BPH (benign prostatic hypertrophy) (Chronic) N40.0 HLD (hyperlipidemia) (Chronic) E78.5 History of CVA (cerebrovascular accident) (Chronic) Z86.73 2012 GERD (gastroesophageal reflux disease) (Chronic) K21.9 Stasis dermatitis of both legs (Chronic) I83.11, I83.12 with hyperpigmentation ANIBAL (obstructive sleep apnea) (Chronic) G47.33 Vesico-colic fistula (Chronic) N32.1 Pulmonary hypertension (Chronic) I27.2 Cor pulmonale (Chronic) I27.81 Morbid obesity with BMI of 45.0-49.9, adult (Chronic) E66.01, Z68.42 CVA (cerebral vascular accident) Onset Date: ~2012 I63.9 NSTEMI (non-ST elevated myocardial infarction) (Resolved) I21.4 Allergies cashew nut Allergy (Verified 06/12/18 14:20) Vomiting cortisone [Cortisone] Allergy (Verified 06/12/18 14:20) Itching CASHEW Adverse Reaction (Uncoded 06/12/18 14:20) Vomiting Home Medications: Ambulatory Orders Medication Instructions Recorded Fluticasone/Salmeterol [Advair 2 puff INHALATION DAILY 11/29/17 250-50 Diskus] umeclidinium 62.5 mcg/actuation 1 inh INHALATION QDAY #30 ea 02/24/18 blister powder for inhalation Albuterol Inhaler [Ventolin Hfa] 1 - 2 puff INHALATION Q4H PRN PRN 04/09/18 Amlodipine [Norvasc] 10 mg PO DAILY 04/09/18 Aspirin [Aspirin, Baby] 81 mg PO DAILY@79904/09/18 Atorvastatin Calcium [Lipitor] 40 mg PO QHS 04/09/18 Calcium (Elemental) [[place] 500] 500 mg PO DAILY@79904/09/18 Clopidogrel Bisulfate [Clopidogrel] 75 mg PO DAILY 04/09/18 Diltiazem HCl [Cartia Xt] 180 mg PO DAILY 04/09/18 Ferrous Sulfate 325 mg PO DAILY@79904/09/18 Furosemide [Lasix] 40 mg PO BIDLX 04/09/18 Glucosamine Sulf/Chondroitin A 1 each PO DAILY 04/09/18 [Glucosamine-Chondroitin Cap] Ipratropium/Albuterol Sulfate 3 ml INHALATION BID 04/09/18 [Duoneb] Losartan Potassium [Cozaar] 50 mg PO DAILY 04/09/18 Potassium Chloride [K-Dur] 10 meq PO DAILY #30 tab 04/17/18 Amiodarone HCl [Cordarone] 200 mg PO DAILY 06/12/18 Surgical History: Surgical History (Last Reviewed 04/28/18 @ 11:03 by Lisa Kellogg NP-C) Hx of decompression of ulnar nerve (Resolved) Z98.890 Surgical History: - - Cyst removal lower back, ulnar relocation right elbow. Psychiatric History: No pertinent psych hx Lives: Alone Smoking Status: Former smoker Alcohol: None Drugs: None - *Family History Maternal Family History: Family History (This Medical Record has been edited. Action required.) Mother Cancer Brother Sudden cardiac Father Heart disease History Items: Cancer - Lung and brain cancer Paternal Family History: Family History (This Medical Record has been edited. Action required.) Mother Cancer Brother Sudden cardiac Father Heart disease History Items: Heart Disease - father of a cardiomyopathy Sibling Family History: Family History (This Medical Record has been edited. Action required.) Mother Cancer Brother Sudden cardiac Father Heart disease History Items: - - brother dropped at 60 drinking a beer Review of Systems Comment: See HPI, otherwise negative x10 systems Objective: Chest x-ray was personally reviewed. This does not appear to be much different compared to previous. Patient does have right middle and lower lobe infiltrates. - Physical Exam General: Alert, Oriented x3, Cooperative, No apparent distress, - - Morbidly obese. Appears older than stated age. Speaking in full sentences. HEENT: Atraumatic, PERRLA, EOMI, Normocephalic, - - No scleral icterus or injection noted. Oral: Moist Mucosa, No Gingival or Mucosal Lesions/ Ulcerations, - - Poor dentition Neck: Supple, No JVD, No Nodes, Trachea Midline Lungs: No rhonchi, No wheeze, Diminished, Rales - Mild on the right, - - Symmetric expansion. No dullness to percussion. Cardiovascular: Regular rate, Regular Rhythm, Normal S1, Normal S2, No murmurs, No rub noted, No Gallop Abdomen: Bowel Sounds Present, Soft, Non Tender, Non-Distended, Obese Extremities: No cyanosis, Clubbing, Edema - 4+ lower extremity edema Skin: - - Venous stasis changes bilateral lower extremities. Superficial excoriations noted on bilateral lower extremities without surrounding erythema or exudate. Musculoskeletal: No Tenderness to Palpation of Joints or Extremities Lymphatic: No Cervical, Supraclavicular, or Inguinal Adenopathy Neurological: Cranial nerves II-XII grossly intact, Neuro grossly intact, Motor Exam 5/5 strength throughout Psych/Mental Status: Alert and oriented to time, place, person, mood and affect Vital Signs Temp Pulse Resp BP Pulse Ox 36.5 C L 70 22 H 133/70 H 96 06/13/18 05:30 06/13/18 06:59 06/13/18 05:30 06/13/18 05:30 06/13/18 05:30 Oxygen Flow Rate (L/min) 6 Oxygen Delivery Method Nasal Cannula Weight: 168 kg Body Mass Index (BMI) 45.1 Finger Stick Blood Glucose 120 Intake and Output for Last 24 Hours 06/11/18 06/12/18 06/13/18 23:59 23:59 23:59 Intake Total 289 / 289 179 / 179 Balance 289 / 289 179 / 179 Microbiology Past 72 Hours 06/13/18 02:00 Gram Stain - Preliminary Sputum, Expectorated/Coughed 06/12/18 19:40 Streptococcus pneumoniae Antigen (M - Final Urine, Clean Catch 06/12/18 19:40 Legionella Antigen - Final Urine, Clean Catch 06/12/18 17:20 Influenza Types A,B Direct FA (SIGRID) - Final Mucosa - Nose Laboratory Tests Past 24 Hrs 06/12/18 06/12/18 06/12/18 14:45 14:45 14:45 WBC 13.6 H RBC 4.07 L Hgb 12.0 L Hct 37.2 L MCV 91.4 MCH 29.5 MCHC 32.3 RDW 15.2 H RDW Differential 49.6 H Plt Count 254 MPV 10.1 Immature Gran % (Auto) 0.700 Neut % (Auto) 91.5 H Lymph % (Auto) 3.0 L [place] % (Auto) 4.7 Eos % (Auto) 0.0 Baso % (Auto) 0.1 Absolute Neuts (auto) 12.5 H Absolute Lymphs (auto) 0.41 L Total Counted Not Reportable Differential Comment SCANNED Sodium 143 Potassium 4.3 Chloride 109 H Carbon Dioxide 27.0 Anion Gap 7 BUN 19 H Creatinine 1.35 H Estim Creat Clear Calc 64.27 Est GFR (MDRD) Af Amer 68 Est GFR (MDRD) Non-Af 56 L BUN/Creatinine Ratio 14.1 Glucose 101 Lactic Acid 1.7 Calcium 8.9 Total Bilirubin AST ALT Alkaline Phosphatase Troponin I 0.334 H B-Natriuretic Peptide Total Protein Albumin Globulin Albumin/Globulin Ratio 06/12/18 06/13/18 06/13/18 14:45 05:35 05:35 WBC 11.8 H RBC 3.87 L Hgb 11.2 L Hct 35.3 L MCV 91.2 MCH 28.9 MCHC 31.7 L RDW 15.0 H RDW Differential 49.3 H Plt Count 213 MPV 10.1 Immature Gran % (Auto) 0.500 Neut % (Auto) 88.1 H Lymph % (Auto) 4.9 L [place] % (Auto) 6.4 Eos % (Auto) 0.0 Baso % (Auto) 0.1 Absolute Neuts (auto) 10.4 H Absolute Lymphs (auto) 0.58 L Total Counted Pending Differential Comment Sodium 142 Potassium 3.7 Chloride 107 Carbon Dioxide 26.0 Anion Gap 9 BUN 22 H Creatinine 1.31 H Estim Creat Clear Calc 69.94 Est GFR (MDRD) Af Amer 71 Est GFR (MDRD) Non-Af 58 L BUN/Creatinine Ratio 16.8 Glucose 124 H Lactic Acid Calcium 9.0 Total Bilirubin 0.60 AST 20 ALT 25 Alkaline Phosphatase 92 Troponin I B-Natriuretic Peptide 176.8 H Total Protein 6.3 L Albumin 3.2 Globulin 3.1 Albumin/Globulin Ratio 1.0 Clinical Impression(s) from Imaging Studies Chest X-Ray 06/12/18 15:09 IMPRESSION: Right upper lobe right middle lobe infiltrate suspicious for pneumonia. Bilateral effusions and atelectasis. Electronically Signed: Polina Suarez MD at 15:23 EDT Tel , Service support , Chest X-Ray 06/13/18 04:00 IMPRESSION: Resolving right middle lobe and right lower lobe pneumonias. Stable minimal bilateral pleural effusions. Electronically Signed: Senthil Hamilton MD at 5:22 EDT , Service support , Assessment/Plan All Active Problems (Last Reviewed 04/28/18 @ 11:03 by Lisa Kellogg NP-C) Healthcare-associated pneumonia (Acute) Hx of decompression of ulnar nerve (Resolved) Cellulitis of back [any part except buttock] (Resolved) NSTEMI (non-ST elevated myocardial infarction) (Resolved) Non-STEMI (non-ST elevated myocardial infarction) (Resolved) RECOMMENDATIONS: 1. Continue current antibiotics until culture data available 2. Monitor for signs and symptoms of adrenal insufficiency. Continue bronchodilators. 3. Increase diuretic therapy for 24 hours empirically. 4. Continue scheduled bronchodilators while awake. 5. Encourage incentive spirometer use and mobilize patient as tolerated. 6. Perform walking oximetry study prior to consideration for discharge from the hospital. IMPRESSIONS: 1. Acute hypoxic insufficiency on chronic combined respiratory failure secondary to HCAP versus CHF Unclear etiology at this time. Patient does have a significant leukocytosis despite lack of steroid therapy. Patient's renal function appears to be at baseline. Patient did have preserved ejection fraction during last hospitalization and has not been compliant with possible intervention for correction of coronary artery disease. Patient presented with tachycardia. Some concern for possible pulmonary edema leading to increased oxygen requirements. Patient has supplied a sputum sample, so will wait for Gram stain and culture data. Continue with empiric healthcare associated pneumonia. 2. Acute on chronic diastolic congestive heart failure/a flutter status post cardioversion/prolonged QT Patient with significant lower extremity edema and a history of diastolic congestive heart failure. Increase Lasix therapy for 24 hours. Patient also likely has an element of pulmonary hypertension that would benefit from diuresis. Okay to continue with aspirin and Plavix, but rate control has been held. Will need to watch patient's QT interval closely given patient's as needed use of amiodarone 3. Diabetes mellitus type 2 Continue Accu-Cheks and sliding scale insulin coverage. 4. COPD/cor pulmonale/untreated sleep apnea Patient with extensive pulmonary issues at baseline. Patient has not been compliant with ANIBAL therapy and was on 10 mg of prednisone daily for palliative measures. 5. Morbid obesity/stasis dermatitis/hyperlipidemia/hypertension/history of CVA/CKD stage II/BPH/poor information Complicates care, management, recovery and prognosis. Physical therapy to continue to work with patient. This note was generated with [employer] dictation software. It may contain incorrect words, spelling, and punctuation that were not noted in checking the note before signing. Code Visit Inpatient E&M: 27456 Init Hosp L3
[2018-06-13] MEDS: Ferrous Sulfate 325 MG Tablet PO (09:37)
[2018-06-13] MEDS: guaiFENesin 1,200 MG Tablet 1200 MG PO ×2 (09:37→21:08)
[2018-06-13] MEDS: dilTIAZem CD 180 MG Capsule PO (09:37)
[2018-06-13] MEDS: Clopidogrel Bisulfate 75 MG Tablet PO (09:37)
[2018-06-13] MEDS: Losartan Potassium 50 MG Tablet PO (09:37)
[2018-06-13] MEDS: Aspirin 81 MG TAB.CHEW PO (09:37)
[2018-06-13] MEDS: amLODIPine 10 MG Tablet PO (09:37)
[2018-06-13] MEDS: Furosemide 40 MG/4 ML Vial IV ×2 (09:44→13:23)
[2018-06-13] MEDS: Acetaminophen 325 MG Tablet 650 MG PO (09:55)
--- NOTE | 2018-06-13 11:53 | CASEMGMT ---
RN NANCIE Assessment completed. See Link. Intro role of CM to patient in room, known to CM from previous admission. Discussed ability to care for self @ home. Pt states he is able to do own ADL's, but does not have energy for anything else. Goes to [employer] once a week (drives self and uses scooter) for groceries, and occasionally will shower @ [employer] as his apartment does not have shower facilities. Pt states his apartment is not clean. KYE [place] discussed ability of pt to do small cleaning tasks or hiring someone as dust/unclean environment can affect his breathing. Pt states he won't bother and will not allow anyone into his apartment, including home health nurses. -LEVI Oliver updated on above. Eyad BAILONN RN ACM
[2018-06-13] MEDS: 0.9% Saline Lock 10 ML Syringe IV (13:23)
--- NOTE | 2018-06-13 13:54 | PN_ITS ---
<Mikki Gardner - Last Filed: 06/13/18 13:54> Subjective: Patient seen and examined. Notes mild improvement in breathing. States he is leaving tomorrow even if he has to leave AMA. Denies other current complaints. - Physical Exam General: Alert, Oriented x3, Cooperative HEENT: Atraumatic, PERRLA, EOMI, Normocephalic Neck: Supple, No JVD, Negative Carotid Bruits Lungs: Diminished, Wheezes Cardiovascular: Regular rate, Regular Rhythm, Normal S1, Normal S2, No murmurs Abdomen: Bowel Sounds Present, Soft, Non Tender, Non-Distended, Obese Extremities: No clubbing, No cyanosis, Capillary Refill Less than 3 Seconds, Edema - BLLE Skin: - - Chronic skin changes bilateral lower extremities. Musculoskeletal: No Tenderness to Palpation of Joints or Extremities Neurological: Cranial nerves II-XII grossly intact, Neuro grossly intact Psych/Mental Status: Normal Affect, Appropriate Vital Signs Temp Pulse Resp BP Pulse Ox 97.9 F 65 20 H 143/57 H 98 06/13/18 13:31 06/13/18 13:31 06/13/18 13:31 06/13/18 13:31 06/13/18 13:31 Oxygen Flow Rate (L/min) 4.5 Oxygen Delivery Method Nasal Cannula Weight: 370 lb 6.025 oz Body Mass Index (BMI) 45.1 Finger Stick Blood Glucose 120 Intake and Output for Last 24 Hours 06/11/18 06/12/18 06/13/18 23:59 23:59 23:59 Intake Total 289 / 289 1141 / 1141 Output Total 800 / 800 Balance 289 / 289 341 / 341 Microbiology Past 72 Hours 06/13/18 02:00 Gram Stain - Final Sputum, Expectorated/Coughed 06/12/18 19:40 Streptococcus pneumoniae Antigen (M - Final Urine, Clean Catch 06/12/18 19:40 Legionella Antigen - Final Urine, Clean Catch 06/12/18 17:20 Influenza Types A,B Direct FA (SIGRID) - Final Mucosa - Nose Laboratory Tests Past 24 Hrs 06/12/18 06/12/18 06/12/18 14:45 14:45 14:45 WBC 13.6 H RBC 4.07 L Hgb 12.0 L Hct 37.2 L MCV 91.4 MCH 29.5 MCHC 32.3 RDW 15.2 H RDW Differential 49.6 H Plt Count 254 MPV 10.1 Immature Gran % (Auto) 0.700 Neut % (Auto) 91.5 H Lymph % (Auto) 3.0 L Grayson % (Auto) 4.7 Eos % (Auto) 0.0 Baso % (Auto) 0.1 Absolute Neuts (auto) 12.5 H Absolute Lymphs (auto) 0.41 L Total Counted Not Reportable Differential Comment SCANNED Sodium 143 Potassium 4.3 Chloride 109 H Carbon Dioxide 27.0 Anion Gap 7 BUN 19 H Creatinine 1.35 H Estim Creat Clear Calc 64.27 Est GFR (MDRD) Af Amer 68 Est GFR (MDRD) Non-Af 56 L BUN/Creatinine Ratio 14.1 Glucose 101 Lactic Acid 1.7 Calcium 8.9 Total Bilirubin AST ALT Alkaline Phosphatase Troponin I 0.334 H B-Natriuretic Peptide Total Protein Albumin Globulin Albumin/Globulin Ratio 06/12/18 06/13/18 06/13/18 14:45 05:35 05:35 WBC 11.8 H RBC 3.87 L Hgb 11.2 L Hct 35.3 L MCV 91.2 MCH 28.9 MCHC 31.7 L RDW 15.0 H RDW Differential 49.3 H Plt Count 213 MPV 10.1 Immature Gran % (Auto) 0.500 Neut % (Auto) 88.1 H Lymph % (Auto) 4.9 L Grayson % (Auto) 6.4 Eos % (Auto) 0.0 Baso % (Auto) 0.1 Absolute Neuts (auto) 10.4 H Absolute Lymphs (auto) 0.58 L Total Counted Not Reportable Differential Comment COMMENT Sodium 142 Potassium 3.7 Chloride 107 Carbon Dioxide 26.0 Anion Gap 9 BUN 22 H Creatinine 1.31 H Estim Creat Clear Calc 69.94 Est GFR (MDRD) Af Amer 71 Est GFR (MDRD) Non-Af 58 L BUN/Creatinine Ratio 16.8 Glucose 124 H Lactic Acid Calcium 9.0 Total Bilirubin 0.60 AST 20 ALT 25 Alkaline Phosphatase 92 Troponin I B-Natriuretic Peptide 176.8 H Total Protein 6.3 L Albumin 3.2 Globulin 3.1 Albumin/Globulin Ratio 1.0 Medical Necessity - Tobacco Use Smoking Status: Former smoker Assessment/Plan All Active Problems (Last Reviewed 04/28/18 @ 11:03 by Lisa Kellogg, SWITCH OPERATOR-C) Healthcare-associated pneumonia (Acute) Hx of decompression of ulnar nerve (Resolved) Cellulitis of back [any part except buttock] (Resolved) NSTEMI (non-ST elevated myocardial infarction) (Resolved) Non-STEMI (non-ST elevated myocardial infarction) (Resolved) 1. Acute on chronic hypoxic respiratory failure secondary to acute right upper lobe/right middle lobe community acquired pneumonia-chest x-ray on admission with right upper lobe and right middle lobe infiltrate. Elevated WBC. Afebrile. Continue supplemental oxygen to maintain O2 at or above 90%. Albuterol and DuoNeb aerosol. Sputum culture pending. Urine for strep and Legionella negative. Continue IV Zosyn and vancomycin. Mucinex 1200 mg p.o. twice daily. Flu panel negative. Blood cultures pending. Dr. Tello, pulmonary medicine consulted. PEP/IS. 2. Chronic diastolic CHF-Echocardiogram 04/12/2018 with EF 55%, septal motion consistent with IVCD, mild aortic stenosis, evidence of diastolic dysfunction. Continue home Lasix regimen, losartan. 3. Chronic elevated troponin/Hx of NSTEMI-patient has history of indeterminate troponins during previous admissions. Follows with Dr. Oro. Patient has refused cardiac catheterization in the past. Patient on admission notes he does not want any workup for his heart including stress test or cardiac catheterization. 4. Chronic iron deficiency anemia-continue iron supplementation. GI workup has been recommended in the past for anemia and patient has refused. 5. Chronic COPD-no acute exacerbation. Patient follows with Dr. Tello as outpatient. Continue albuterol and DuoNeb aerosols. 6. History of atrial flutter-status post JODY/cardioversion August 2017. Continue Cardizem. Patient was previously discharged on Eliquis which she states had to be discontinued due to ulcer. Patient has also been on amiodarone in the past which was discontinued due to prolonged QT. 7. Chronic kidney disease stage II-stable. 8. History of CVA-patient reports residual left-sided numbness/tingling. No focal deficits. Continue aspirin,, Plavix, statin. 9. Hyperlipidemia-continue statin. 10. Obstructive sleep apnea-patient had a polysomnogram 05/29 in which a BIPAP was recommended. Patient refuses BiPAP. 11. Hypertension-stable, continue current regimen including amlodipine, Cardizem, Lasix, losartan. 12. Morbid obesity-BMI 47.6. Encouraged lifestyle and diet modifications. Nutrition consult. DVT prophylaxis-Heparin sc. This patient was seen by MALU PatelC under the supervision of Dr. Markham. <Elvis Markham F - Last Filed: 06/13/18 15:16> - Physical Exam Vital Signs Temp Pulse Resp BP Pulse Ox 97.9 F 65 20 H 143/57 H 98 06/13/18 13:31 06/13/18 13:31 06/13/18 13:31 06/13/18 13:31 06/13/18 13:31 Oxygen Flow Rate (L/min) 4.5 Oxygen Delivery Method Nasal Cannula Weight: 370 lb 6.025 oz Body Mass Index (BMI) 45.1 Finger Stick Blood Glucose 120 Intake and Output for Last 24 Hours 06/11/18 06/12/18 06/13/18 23:59 23:59 23:59 Intake Total 289 / 289 1141 / 1141 Output Total 800 / 800 Balance 289 / 289 341 / 341 Microbiology Past 72 Hours 06/13/18 02:00 Gram Stain - Final Sputum, Expectorated/Coughed 06/12/18 19:40 Streptococcus pneumoniae Antigen (M - Final Urine, Clean Catch 06/12/18 19:40 Legionella Antigen - Final Urine, Clean Catch 06/12/18 17:20 Influenza Types A,B Direct FA (SIGRID) - Final Mucosa - Nose Laboratory Tests Past 24 Hrs 06/12/18 06/12/18 06/12/18 14:45 14:45 14:45 WBC RBC Hgb Hct MCV MCH MCHC RDW RDW Differential Plt Count MPV Immature Gran % (Auto) Neut % (Auto) Lymph % (Auto) Grayson % (Auto) Eos % (Auto) Baso % (Auto) Absolute Neuts (auto) Absolute Lymphs (auto) Total Counted Not Reportable Differential Comment SCANNED Sodium 143 Potassium 4.3 Chloride 109 H Carbon Dioxide 27.0 Anion Gap 7 BUN 19 H Creatinine 1.35 H Estim Creat Clear Calc 64.27 Est GFR (MDRD) Af Amer 68 Est GFR (MDRD) Non-Af 56 L BUN/Creatinine Ratio 14.1 Glucose 101 Lactic Acid 1.7 Calcium 8.9 Total Bilirubin AST ALT Alkaline Phosphatase Troponin I 0.334 H B-Natriuretic Peptide Total Protein Albumin Globulin Albumin/Globulin Ratio 06/12/18 06/13/18 06/13/18 14:45 05:35 05:35 WBC 11.8 H RBC 3.87 L Hgb 11.2 L Hct 35.3 L MCV 91.2 MCH 28.9 MCHC 31.7 L RDW 15.0 H RDW Differential 49.3 H Plt Count 213 MPV 10.1 Immature Gran % (Auto) 0.500 Neut % (Auto) 88.1 H Lymph % (Auto) 4.9 L Grayson % (Auto) 6.4 Eos % (Auto) 0.0 Baso % (Auto) 0.1 Absolute Neuts (auto) 10.4 H Absolute Lymphs (auto) 0.58 L Total Counted Not Reportable Differential Comment COMMENT Sodium 142 Potassium 3.7 Chloride 107 Carbon Dioxide 26.0 Anion Gap 9 BUN 22 H Creatinine 1.31 H Estim Creat Clear Calc 69.94 Est GFR (MDRD) Af Amer 71 Est GFR (MDRD) Non-Af 58 L BUN/Creatinine Ratio 16.8 Glucose 124 H Lactic Acid Calcium 9.0 Total Bilirubin 0.60 AST 20 ALT 25 Alkaline Phosphatase 92 Troponin I B-Natriuretic Peptide 176.8 H Total Protein 6.3 L Albumin 3.2 Globulin 3.1 Albumin/Globulin Ratio 1.0 Code Visit Addendum: Dr. Markham I personally examined the patient and reviewed the chart. I agree with the above. 62-year-old morbidly obese male presenting with complaint hypoxic respiratory failure. Is on 4 L of oxygen nasal cannula at home. Only being treated for diastolic CHF and hospital-acquired pneumonia. Cultures are pending however will continue with vancomycin and Zosyn as empiric treatment. We will also continue with diuresis. He is demanding to leave tomorrow regardless of improvement. States that if we do not discharge tomorrow he will leave AMA. Inpatient E&M: 19494 Subs Hosp L2
[2018-06-13] MEDS: Atorvastatin Calcium 40 MG Tablet PO (21:08)
[2018-06-14] VITALS (9 sets, daily range): BP systolic 144–148; BP diastolic 51–78; PULSE 55–64; RESP 16–18; TEMP 36.5–37.1; O2SAT 88–98
[2018-06-14] MEDS: Heparin Injection (Vial) 5,000 UNIT/ML VIAL 5000 UNIT SC (05:49)
[2018-06-14] MEDS: Furosemide 40 MG/4 ML Vial IV (05:49)
[2018-06-14] MEDS: Piperacil/Tazobactam 3.375 GM/50 ML ML IV (05:49)
[2018-06-14 06:06] LABS: Mean Corp Hgb Conc 31.4 g/gl (32-36); Mean Corpuscular Hgb 28.5 pg (27.0-32.0); Mean Corpuscular Volume 90.7 fL (80-94); Mean Platelet Vol. 10.1 fl (6.2-12.0); Platelet Count 209 K/mm3 (150-450); RBC Distribution Width CV 15.4 % (11.6-14.6); Red Blood Count 3.86 M/mm3 (4.6-6.2); White Blood Count 10.2 K/mm3 (4.4-11.0)
[2018-06-14 06:14] LABS: Scan Indicated on CBC? Y/N NO
[2018-06-14 06:25] LABS: Anion Gap 8 (5-15); BUN 23 mg/dL (7-18); BUN/Creat Ratio 16.4 RATIO (10-20); Calcium,Total 8.7 mg/dL (8.5-10.1); Chloride 108 mmol/L (98-107); EST Glomerular Filtration Rate 54 mL/min (>60); Est Glom Filt Rate - Afr Amer 66 mL/min (>60); Estimated Creatinine Clearance 65.44 ml/min; Glucose 114 mg/dL (74-106); Potassium 3.2 mmol/L (3.5-5.1); Sodium Level 144 mmol/L (136-145)
[2018-06-14] MEDS: Ipratropium/Albuterol Sulfate 3 ML AMPUL.NEB INHALATION ×2 (06:31→12:38)
[2018-06-14] MEDS: Aspirin 81 MG TAB.CHEW PO (08:25)
[2018-06-14] MEDS: amLODIPine 10 MG Tablet PO (08:25)
[2018-06-14] MEDS: Ferrous Sulfate 325 MG Tablet PO (08:25)
[2018-06-14] MEDS: dilTIAZem CD 180 MG Capsule PO (08:25)
[2018-06-14] MEDS: Losartan Potassium 50 MG Tablet PO (08:25)
[2018-06-14] MEDS: Clopidogrel Bisulfate 75 MG Tablet PO (08:25)
[2018-06-14] MEDS: guaiFENesin 1,200 MG Tablet 1200 MG PO (08:25)
--- NOTE | 2018-06-14 09:00 | PN_ITS ---
Subjective: Patient feels subjectively improved compared to yesterday. Patient reports less dyspnea on exertion and slightly improved lower extremity edema. Patient has been weaned to his baseline 4 L nasal cannula and doing well at rest. - Physical Exam General: Alert, Oriented x3, Cooperative, No apparent distress, - - Morbidly obese. Appears older than stated age. Speaking in full sentences. HEENT: Atraumatic, PERRLA, EOMI, Normocephalic Oral: Moist Mucosa, No Gingival or Mucosal Lesions/ Ulcerations, - - Poor dentition Neck: Supple, No Nodes, Trachea Midline, JVD, Right Lungs: No rhonchi, No wheeze, Diminished, Rales - Improved from previous, - - Symmetric expansion. No dullness to percussion. Cardiovascular: Regular rate, Regular Rhythm, Normal S1, Normal S2, No murmurs, No rub noted, No Gallop Abdomen: Bowel Sounds Present, Soft, Non Tender, Non-Distended, Obese Extremities: No cyanosis, Capillary Refill Less than 3 Seconds, Clubbing, Edema - Unchanged from previous Skin: - - No change from previous Musculoskeletal: No Tenderness to Palpation of Joints or Extremities Lymphatic: No Cervical, Supraclavicular, or Inguinal Adenopathy Neurological: Cranial nerves II-XII grossly intact, Neuro grossly intact, Motor Exam 5/5 strength throughout Psych/Mental Status: Alert and oriented to time, place, person, mood and affect Vital Signs Temp Pulse Resp BP Pulse Ox 36.6 C 58 L 16 148/59 H 95 06/14/18 08:23 06/14/18 08:23 06/14/18 08:23 06/14/18 08:23 06/14/18 08:23 Oxygen Flow Rate (L/min) 4 Oxygen Delivery Method Nasal Cannula Weight: 168 kg Body Mass Index (BMI) 45.1 Finger Stick Blood Glucose 120 Intake and Output for Last 24 Hours 06/12/18 06/13/18 06/14/18 23:59 23:59 23:59 Intake Total 289 / 289 2219 / 2219 87 / 87 Output Total 1700 / 1700 300 / 300 Balance 289 / 289 519 / 519 -213 / -213 Microbiology Past 72 Hours 06/13/18 02:00 Gram Stain - Final Sputum, Expectorated/Coughed 06/12/18 19:40 Streptococcus pneumoniae Antigen (M - Final Urine, Clean Catch 06/12/18 19:40 Legionella Antigen - Final Urine, Clean Catch 06/12/18 17:20 Influenza Types A,B Direct FA (SIGRID) - Final Mucosa - Nose Laboratory Tests Past 24 Hrs 06/14/18 06/14/18 06/14/18 05:36 05:36 08:20 WBC 10.2 RBC 3.86 L Hgb 11.0 L Hct 35.0 L MCV 90.7 MCH 28.5 MCHC 31.4 L RDW 15.4 H RDW Differential 51.0 H Plt Count 209 MPV 10.1 Sodium 144 Potassium 3.2 L Chloride 108 H Carbon Dioxide 28.0 Anion Gap 8 BUN 23 H Creatinine 1.40 H Estim Creat Clear Calc 65.44 Est GFR (MDRD) Af Amer 66 Est GFR (MDRD) Non-Af 54 L BUN/Creatinine Ratio 16.4 Glucose 114 H Calcium 8.7 Vancomycin Trough Pending MRSA (PCR) 06/14/18 08:25 WBC RBC Hgb Hct MCV MCH MCHC RDW RDW Differential Plt Count MPV Sodium Potassium Chloride Carbon Dioxide Anion Gap BUN Creatinine Estim Creat Clear Calc Est GFR (MDRD) Af Amer Est GFR (MDRD) Non-Af BUN/Creatinine Ratio Glucose Calcium Vancomycin Trough MRSA (PCR) Pending Medical Necessity - Tobacco Use Smoking Status: Former smoker Assessment/Plan All Active Problems (Last Reviewed 04/28/18 @ 11:03 by Lisa Kellogg, MECHANICAL DOOR REPAIRER-C) Healthcare-associated pneumonia (Acute) Hx of decompression of ulnar nerve (Resolved) Cellulitis of back [any part except buttock] (Resolved) NSTEMI (non-ST elevated myocardial infarction) (Resolved) Non-STEMI (non-ST elevated myocardial infarction) (Resolved) RECOMMENDATIONS: 1. Please discontinue antibiotics at 48 hours if culture negative 2. Monitor for signs and symptoms of adrenal insufficiency. Continue bronchodilators. 3. Would continue with diuretic therapy 4. Continue scheduled bronchodilators while awake. 5. Encourage incentive spirometer use and mobilize patient as tolerated. 6. Perform walking oximetry study prior to consideration for discharge from the hospital. IMPRESSIONS: 1. Acute hypoxic insufficiency on chronic combined respiratory failure secondary to HCAP versus CHF Unclear etiology at this time. Patient is on intermittent steroid therapy at home, which may explain patient's leukocytosis on presentation. Patient reports significant improvement with diuretic therapy. Clinical suspicion for diastolic congestive heart failure leading to current findings. Patient would likely benefit from multiple days of diuretic therapy as he still has extensive lower extremity edema. From my perspective, antibiotics can likely be discontinued at 48 hours if cultures are negative. Patient is on a palliative 10 mg of prednisone at baseline. 2. Acute on chronic diastolic congestive heart failure/a flutter status post cardioversion/prolonged QT Patient with significant lower extremity edema and a history of diastolic congestive heart failure. New increased Lasix therapy. Patient also likely has an element of pulmonary hypertension that would benefit from diuresis. Okay to continue with aspirin and Plavix, but rate control has been held. Will need to watch patient's QT interval closely given patient's as needed use of amiodarone. Patient reports a low-salt diet, but currently has a breakfast with johnson, sausage and an omelette. Clinical suspicion for dietary salt indiscretions leading to increased edema that are complicated by tachycardia with flash pulmonary edema. 3. Diabetes mellitus type 2 Continue Accu-Cheks and sliding scale insulin coverage. 4. COPD/cor pulmonale/untreated sleep apnea Patient with extensive pulmonary issues at baseline. Patient has not been compliant with ANIBAL therapy and was on 10 mg of prednisone daily for palliative measures. 5. Morbid obesity/stasis dermatitis/hyperlipidemia/hypertension/history of CVA/CKD stage II/BPH/poor information Complicates care, management, recovery and prognosis. Physical therapy to continue to work with patient. This note was generated with [employer] dictation software. It may contain incorrect words, spelling, and punctuation that were not noted in checking the note before signing. Code Visit Inpatient E&M: 09165 [facility] Hosp L3
[2018-06-14 09:30] LABS: Vancomycin, Trough Level 14.6 ug/mL (5.0-15.0)
--- NOTE | 2018-06-14 11:02 | DCINST_ITS ---
You will use the following diet at home:: Cardiac Discharge Activity: Return to Normal Activity Call your doctor if you observe: Shortness of breath, Dizziness, Fainting spells, Chest pain Additional Instructions: Continue to wrap lower extremities and keep elevated. Take lasix 40mg three times daily for one week. You may require increased lasix regimen in the future to avoid fluid overload. Follow up with primary care physician in one week for further discussion regarding this. Allergies/Adverse Reactions: Allergies cashew nut Allergy (Verified 06/12/18 14:20) Vomiting cortisone [Cortisone] Allergy (Verified 06/12/18 14:20) Itching CASHEW Adverse Reaction (Uncoded 06/12/18 14:20) Vomiting Medications to take at Discharge Fluticasone/Salmeterol [Advair 250-50 Diskus] 2 puff INHALATION DAILY 11/29/17 umeclidinium 62.5 mcg/actuation blister powder for inhalation 1 inh INHALATION QDAY #30 ea 02/24/18 Albuterol Inhaler [Ventolin Hfa] 1 - 2 puff INHALATION Q4H PRN PRN 04/09/18 Amlodipine [Norvasc] 10 mg PO DAILY 04/09/18 Aspirin [Aspirin, Baby] 81 mg PO DAILY@0804/09/18 Atorvastatin Calcium [Lipitor] 40 mg PO QHS 04/09/18 Calcium (Elemental) [[place] 500] 500 mg PO DAILY@79904/09/18 Clopidogrel Bisulfate [Clopidogrel] 75 mg PO DAILY 04/09/18 Diltiazem HCl [Cartia Xt] 180 mg PO DAILY 04/09/18 Ferrous Sulfate 325 mg PO DAILY@0804/09/18 Furosemide [Lasix] 40 mg PO BIDLX 04/09/18 Glucosamine Sulf/Chondroitin A [Glucosamine-Chondroitin Cap] 1 each PO DAILY 04/09/18 Ipratropium/Albuterol Sulfate [Duoneb] 3 ml INHALATION BID 04/09/18 Losartan Potassium [Cozaar] 50 mg PO DAILY 04/09/18 Potassium Chloride [K-Dur] 10 meq PO DAILY #30 tab 04/17/18 Guaifenesin [Mucinex] 1,200 mg PO BID #60 tablet 06/14/18 levoFLOXacin tablet [Levaquin tablet] 750 mg PO DAILY #3 tablet 06/14/18 The following prescriptions were given: levoFLOXacin tablet [Levaquin tablet] 750 mg PO DAILY #3 tablet Guaifenesin [Mucinex] 1,200 mg PO BID #60 tablet Primary Care Physician: Hernan Murray MD [Primary Care Provider] - Please follow up with your Primary Care Physician in: 3-5 Days Test Results: Test results from this visit will be discussed in further detail at your follow- up appointment, if applicable. Please Follow Up With: Torres Oro MD When: As scheduled Please Follow Up With: Jonathan Tello MD When: As scheduled Proposed Discharge Date: 06/14/18
--- NOTE | 2018-06-14 11:33 | DS.PCM_ITS ---
<Mikki Gardner - Last Filed: 06/14/18 11:35> Discharge Date and Diagnosis Date of Admission: 06/12/18 Date of Discharge: 06/14/18 - Primary Discharge Diagnosis 1. Acute on chronic hypoxic respiratory failure secondary to acute right upper lobe/right middle lobe community acquired pneumonia and acute on chronic diastolic CHF 2. Mild hypokalemia 3. Chronic elevated troponin/indeterminate troponin-refuses cardiac workup - Secondary Discharge Diagnosis Chronic Problems (Last Reviewed 04/28/18 @ 11:03 by LINWOOD Mobley) Chronic atrial fibrillation (Chronic) COPD (chronic obstructive pulmonary disease) (Chronic) CAD (coronary artery disease) (Chronic) Left bundle branch block (Chronic) CKD (chronic kidney disease), stage II (Chronic) Cardiomyopathy (Chronic) History of cardioversion (Chronic ~09/07/17) Atrial flutter (Chronic) Chronic respiratory failure (Chronic) Hypertension (Chronic) Scar of back (Chronic) 5 cm recurrent infected cystic lesion scar right lower medial back Former smoker (Chronic) quit 2013 BPH (benign prostatic hypertrophy) (Chronic) HLD (hyperlipidemia) (Chronic) History of CVA (cerebrovascular accident) (Chronic) 2012 GERD (gastroesophageal reflux disease) (Chronic) Stasis dermatitis of both legs (Chronic) with hyperpigmentation ANIBAL (obstructive sleep apnea) (Chronic) Vesico-colic fistula (Chronic) Pulmonary hypertension (Chronic) Cor pulmonale (Chronic) Morbid obesity with BMI of 45.0-49.9, adult (Chronic) Hospital Course and Treatment Imaging Results: Diagnostic Data Chest X-Ray 06/13/18 04:00 IMPRESSION: Resolving right middle lobe and right lower lobe pneumonias. Stable minimal bilateral pleural effusions. Electronically Signed: Senthil Hamilton MD at 5:22 EDT , Service support , Dr. Tello- Pulmonary Medicine Operations: None Procedures: None Summary of Care Provided: The patient is a 62 year old M admitted 06/12/18 due to shortness of breath. 1. Acute on chronic hypoxic respiratory failure secondary to acute right upper lobe/right middle lobe community acquired pneumonia and acute on chronic diastolic CHF-chest x-ray on admission with right upper lobe and right middle lobe infiltrate. Elevated WBC. Afebrile. Continue supplemental oxygen to maintain O2 at or above 90%. Sputum culture shows normal respiratory jorje. Urine for strep and Legionella negative. Treated with IV Zosyn and vancomycin. Mucinex 1200 mg p.o. twice daily. Flu panel negative. Blood cultures pending. Patient will be discharged with 3 more days of oral Levaquin. Continue home inhaler regimen. Follow-up with pulmonary medicine as scheduled. 2. Acute on Chronic diastolic CHF-Echocardiogram 04/12/2018 with EF 55%, septal motion consistent with IVCD, mild aortic stenosis, evidence of diastolic dysfunction. Continue home Lasix regimen, losartan. Patient received IV Lasix during admission. Recommend increase Lasix regimen to 3 times daily at discharge. Patient may require further increase Lasix regimen. Can discuss this with primary care physician at follow-up. Continue outpatient follow-up with cardiology. 3. Chronic elevated troponin/Hx of NSTEMI-patient has history of indeterminate troponins during previous admissions. Follows with Dr. Oro. Patient has refused cardiac catheterization in the past. Patient on admission notes he does not want any workup for his heart including stress test or cardiac catheterization. 4. Chronic iron deficiency anemia-continue iron supplementation. GI workup has been recommended in the past for anemia and patient has refused. 5. Chronic COPD-no acute exacerbation. Patient follows with Dr. Tello as outpatient. Continue albuterol and DuoNeb aerosols. 6. History of atrial flutter-status post JODY/cardioversion August 2017. Continue Cardizem. Patient was previously discharged on Eliquis which she states had to be discontinued due to ulcer. Patient has also been on amiodarone in the past which was discontinued due to prolonged QT. 7. Chronic kidney disease stage II-stable. 8. History of CVA-patient reports residual left-sided numbness/tingling. No focal deficits. Continue aspirin,, Plavix, statin. 9. Hyperlipidemia-continue statin. 10. Obstructive sleep apnea-patient had a polysomnogram 05/29 in which a BIPAP was recommended. Patient refuses BiPAP. 11. Hypertension-stable, continue current regimen including amlodipine, Cardizem, Lasix, losartan. 12. Morbid obesity-BMI 47.6. Encouraged lifestyle and diet modifications. General: Alert, Oriented x3, Cooperative HEENT: Atraumatic, PERRLA, EOMI, Normocephalic Neck: Supple, No JVD, Negative Carotid Bruits Lungs: Diminished, minimal rales, no wheezing Cardiovascular: Regular rate, Regular Rhythm, Normal S1, Normal S2, No murmurs Abdomen: Bowel Sounds Present, Soft, Non Tender, Non-Distended, Obese Extremities: No clubbing, No cyanosis, Capillary Refill Less than 3 Seconds, Edema - BLLE Skin: - - Chronic skin changes bilateral lower extremities. Musculoskeletal: No Tenderness to Palpation of Joints or Extremities Neurological: Cranial nerves II-XII grossly intact, Neuro grossly intact Psych/Mental Status: Normal Affect, Appropriate Patient seen exam prior to discharge. Physical assessment as noted above. Patient is stable for discharge home with the follow-up her conditions as noted above. This patient was seen by LINWOOD Patel under the supervision of Dr. Markham. Discharge Diet: 8 Cup Fluid Restriciton, 2000 mg Sodium Diet Discharge Activity: Return to Normal Activity Call your doctor if you observe: Shortness of breath, Dizziness, Fainting spells, Chest pain Home Medications: Medications to take at Discharge Fluticasone/Salmeterol [Advair 250-50 Diskus] 2 puff INHALATION DAILY 11/29/17 umeclidinium 62.5 mcg/actuation blister powder for inhalation 1 inh INHALATION QDAY #30 ea 02/24/18 Albuterol Inhaler [Ventolin Hfa] 1 - 2 puff INHALATION Q4H PRN PRN 04/09/18 Amlodipine [Norvasc] 10 mg PO DAILY 04/09/18 Aspirin [Aspirin, Baby] 81 mg PO DAILY@79904/09/18 Atorvastatin Calcium [Lipitor] 40 mg PO QHS 04/09/18 Calcium (Elemental) [[place] 500] 500 mg PO DAILY@79904/09/18 Clopidogrel Bisulfate [Clopidogrel] 75 mg PO DAILY 04/09/18 Diltiazem HCl [Cartia Xt] 180 mg PO DAILY 04/09/18 Ferrous Sulfate 325 mg PO DAILY@79904/09/18 Furosemide [Lasix] 40 mg PO BIDLX 04/09/18 Glucosamine Sulf/Chondroitin A [Glucosamine-Chondroitin Cap] 1 each PO DAILY 04/09/18 Ipratropium/Albuterol Sulfate [Duoneb] 3 ml INHALATION BID 04/09/18 Losartan Potassium [Cozaar] 50 mg PO DAILY 04/09/18 Potassium Chloride [K-Dur] 10 meq PO DAILY #30 tab 04/17/18 Guaifenesin [Mucinex] 1,200 mg PO BID #60 tablet 06/14/18 levoFLOXacin tablet [Levaquin tablet] 750 mg PO DAILY #3 tablet 06/14/18 Following Prescrptions Were Given to Patient: levoFLOXacin tablet [Levaquin tablet] 750 mg PO DAILY #3 tablet Guaifenesin [Mucinex] 1,200 mg PO BID #60 tablet Primary Care Physician: Hernan Murray MD [Primary Care Provider] - Please follow up with your Primary Care Physician in: 3-5 Days Please Follow Up With: Torres Oro MD When: As scheduled Please Follow Up With: Jonathan Tello MD When: As scheduled Disposition: Home Minutes spent on discharge:: 35 Patient Condition:: Stable Medical Necessity - Tobacco Use Smoking Status: Former smoker Meaningful Use Info Meaningful Use Diagnoses (Choose all that apply): CHF - CHF MICHI/ARB ordered at discharge?: Yes Documented LVEF (%): 55 <Elvis Markham - Last Filed: 06/14/18 14:07> Discharge Date and Diagnosis - Secondary Discharge Diagnosis Chronic Problems (Last Reviewed 04/28/18 @ 11:03 by Lisa Kellogg NP-C) Chronic atrial fibrillation (Chronic) COPD (chronic obstructive pulmonary disease) (Chronic) CAD (coronary artery disease) (Chronic) Left bundle branch block (Chronic) CKD (chronic kidney disease), stage II (Chronic) Cardiomyopathy (Chronic) History of cardioversion (Chronic ~09/07/17) Atrial flutter (Chronic) Chronic respiratory failure (Chronic) Hypertension (Chronic) Scar of back (Chronic) 5 cm recurrent infected cystic lesion scar right lower medial back Former smoker (Chronic) quit 2013 BPH (benign prostatic hypertrophy) (Chronic) HLD (hyperlipidemia) (Chronic) History of CVA (cerebrovascular accident) (Chronic) 2012 GERD (gastroesophageal reflux disease) (Chronic) Stasis dermatitis of both legs (Chronic) with hyperpigmentation ANIBAL (obstructive sleep apnea) (Chronic) Vesico-colic fistula (Chronic) Pulmonary hypertension (Chronic) Cor pulmonale (Chronic) Morbid obesity with BMI of 45.0-49.9, adult (Chronic) Hospital Course and Treatment Summary of Care Provided: The patient is a 62 year old M [] Code Visit Addendum: Dr. Markham I personally examined the patient and reviewed the chart. I agree with the above. Mr. Grajeda is a 62-year-old morbidly obese gentleman presenting with acute on chronic hypoxic respiratory failure secondary to community-acquired pneumonia and diastolic CHF. It was difficult to say what the primary cause of his respiratory failure was. He has elevated pulmonary artery pressures and significant lower extremity edema indicating more of a heart failure diagnosis. However he also had a leukocytosis that improved with antibiotics. Therefore he will be discharged on both Levaquin for 3 days and an increased Lasix protocol of a 40 mg 3 times daily for 3-4 days. Follow-up with his manager site and his primary care physician on discharge. Inpatient E&M: [id number] [facility]
[2018-06-14 11:46] LABS: M R Staph aureus DNA By PCR Negative (Negative); Probe Check PASS; Specimen Processing Control PASS
--- NOTE | 2018-06-15 15:45 | CASEMGMT ---
FOLLOW-UP CALL: Follow-up call placed to patient. Both numbers listed had no ringtone. I left a voicemail with return contact information.
== END 2018-06-14 14:43 | disposition home or self-care (01) | DRG 193 ==
LOC: ED 14:48 → PCU 16:14
PROVIDERS: Internal Medicine Critical Care Medicine; Nurse Practitioner Family; Admitting Provider Internal Medicine; Emergency Provider Emergency Medicine; Family Provider Family Medicine; PCP Family Medicine; Visit Provider Family Medicine
DX: J18.9 Pneumonia, unspecified organism (principal); J96.21 Acute and chronic respiratory failure with hypoxia; I50.33 Acute on chronic diastolic (congestive) heart failure; I13.0 Hypertensive heart and chronic kidney disease with heart failure and stage 1 through stage 4 chronic kidney disease, or unspecified chronic kidney disease; J44.0 Chronic obstructive pulmonary disease with (acute) lower respiratory infection; Z68.42 Body mass index [BMI] 45.0-49.9, adult; I35.0 Nonrheumatic aortic (valve) stenosis; N18.2 Chronic kidney disease, stage 2 (mild); E78.5 Hyperlipidemia, unspecified; E66.01 Morbid (severe) obesity due to excess calories; E87.6 Hypokalemia; I48.2 Chronic atrial fibrillation; Z87.891 Personal history of nicotine dependence; N40.0 Benign prostatic hyperplasia without lower urinary tract symptoms; I25.10 Atherosclerotic heart disease of native coronary artery without angina pectoris; I25.2 Old myocardial infarction; D50.9 Iron deficiency anemia, unspecified; I69.398 Other sequelae of cerebral infarction; R20.0 Anesthesia of skin; R20.2 Paresthesia of skin; G47.33 Obstructive sleep apnea (adult) (pediatric); R74.8 Abnormal levels of other serum enzymes; Z99.81 Dependence on supplemental oxygen
CPT/HCPCS: 36415; 71045; 71046; 80048; 80053; 80202; 83605; 83880; 84484; 85025; 85027; 87040; 87070; 87205; 87449; 87641; 87804; 93005; 94640; 99283; J7040; J7050; A4216; J1940

== ENCOUNTER 2018-09-23 14:29 | Emergency (ER) | payer MEDICARE, SELFPAY ==
[2018-08-16 13:59] VITALS: BMI 48.7
[2018-09-23 14:31] VITALS: BP 158/70; PULSE 76; RESP 30; TEMP 36.6; O2SAT 92; BMI 47.9
[2018-09-23 16:45] VITALS: O2SAT 98
--- NOTE | 2018-09-23 16:48 | EKG12_ITS ---
Test Reason : REPEAT-RHYTHM CHANGE Blood Pressure : / mmHG Vent. Rate : 072 BPM Atrial Rate : 072 BPM P-R Int : 164 ms QRS Dur : 092 ms QT Int : 446 ms P-R-T Axes : 000 081 092 degrees QTc Int : 488 ms Normal sinus rhythm Anteroseptal infarct , age undetermined Abnormal ECG Confirmed by TENA HERRERA, SANTHOSH ([id number]), manuscript editor AZRA DOBBINS ([id number]) on 09/27/2018 4:38:48 PM Referred By: Meliton Morel Confirmed By:SANTHOSH MADSEN MD
--- NOTE | 2018-09-23 16:48 | RAD_ITS ---
STUDY: X-RAY CHEST REASON FOR EXAM: Male, 63 years old. Shortness of breath, cough TECHNIQUE: PA and lateral views of the chest. COMPARISON: 06/13/2018 FINDINGS: No airspace consolidation or pleural effusion. There is no demonstrated pleural abnormality. Normal size heart. Normal mediastinum and asaf. Normal visualized pulmonary arteries. Normal visualized aortic arch and descending thoracic aorta. There are diffuse degenerative changes of the visualized thoracic spine. Normal visualized ribs, clavicles, and shoulders. There is no demonstrated abnormality of the visualized soft tissue structures of the upper abdomen. RAD/Chest PA and Lateral IMPRESSION: No airspace consolidation or pleural effusion. Electronically Signed: Kal Matute MD at 18:42 EST , Service support ,
--- NOTE | 2018-09-23 16:55 | ED.DCSUM_ITS ---
- ER Visit Summary Date of Service: 09/23/18 Chief Complaint: Shortness of breath History of Present Illness: The patient is a 63 M who comes of shortness of breath. Started last night and got worse throughout the night. He has had a cough productive of sputum. He denies any chest pain. His symptoms are worse with exertion and better with rest. He does wear home oxygen at home secondary to COPD. He is a non-smoker. He does have a history of atrial flutter and sometimes it makes him feel short of breath. He has been medication compliant at home. He does have a history of pneumonia as well. He denies fevers. Physical Examination: Vital signs reviewed. HEENT exam unremarkable. Heart is regular rate and rhythm without murmurs. Lungs have diffuse end expiratory wheezing. Abdomen is soft and nontender. Extremities reveal no edema. Skin exam normal. Neurologic exam normal. Test Results: EKG is sinus rhythm with no ectopy. Rate of 59. No ST changes. Chest x-ray reveals chronic changes per my interpretation. Emergency Department Course and Treatment: Due to the patient's history Place him on doxycycline. He has prednisone to take at home. He will follow-up with Dr. Tello Treatment Plan: [] Disposition: Discharge Impression: Acute bronchitis This note was generated with [employer] dictation software. It may contain incorrect words, spelling, and punctuation that were not noted in review of the chart prior to signing ED Disposition - Plan for ED Patient: Chief Complaint: Shortness of Breath Referrals: Hernan Murray MD [Primary Care Provider] -
[2018-09-23] MEDS: predniSONE 20 MG Tablet 60 MG PO (16:56)
[2018-09-23 16:57] VITALS: PULSE 82; RESP 20
[2018-09-23] MEDS: Ipratropium/Albuterol Sulfate 3 ML AMPUL.NEB INHALATION (16:57)
[2018-09-23 18:07] VITALS: O2SAT 96
--- NOTE | 2018-09-23 18:32 | ED.DEP ---
ED Disposition - Plan for ED Patient: Disposition: Home or Assisted Living Chief Complaint: Shortness of Breath Instructions: ED COPD Flare Prescriptions: Doxycycline Hyclate [Vibramycin] 100 mg PO BID #14 cap Referrals: Hernan Murray MD [Primary Care Provider] -
[2018-09-23] MEDS: Doxycycline 100 MG CAPSULE PO (19:12)
[2018-09-23 19:13] VITALS: BP 196/79; PULSE 68
== END 2018-09-23 19:26 | disposition home or self-care (01) ==
PROVIDERS: Emergency Provider Emergency Medicine; Family Provider Family Medicine; PCP Family Medicine
DX: J20.9 Acute bronchitis, unspecified (principal); Z87.01 Personal history of pneumonia (recurrent); Z99.81 Dependence on supplemental oxygen
CPT/HCPCS: 71046; 93005; 94640; 99283

== ENCOUNTER 2018-09-24 16:22 | Inpatient (IN) | payer MEDICARE, SELFPAY ==
[2018-09-23 14:31] VITALS: BMI 47.9
[2018-09-24] VITALS (16 sets, daily range): BP systolic 125–169; BP diastolic 44–82; PULSE 67–87; RESP 20–42; TEMP 36.4–36.7; O2SAT 93–98; BMI 51.1; BMI 48.9; BMI 49.0
--- NOTE | 2018-09-24 16:28 | EKG12_ITS ---
Test Reason : SOB Blood Pressure : / mmHG Vent. Rate : 075 BPM Atrial Rate : 075 BPM P-R Int : 160 ms QRS Dur : 108 ms QT Int : 446 ms P-R-T Axes : 000 079 098 degrees QTc Int : 498 ms Sinus rhythm with occasional and consecutive Premature ventricular complexes Anteroseptal infarct , age undetermined Abnormal ECG Confirmed by TENA HERRERA, SANTHOSH ([id number]), publication editor AZRA DOBBINS ([id number]) on 09/27/2018 4:38:22 PM Referred By: Meliton Morel Confirmed By:SANTHOSH MADSEN MD
--- NOTE | 2018-09-24 16:30 | ED.VISSUMM ---
- ER Visit Summary Date of Service: 09/24/18 Chief Complaint: Shortness of breath History of Present Illness: The patient is a 63 M who is been short of breath for the past couple of days. Was seen here yesterday and had a negative workup and was sent home with doxycycline, steroids and to use his aerosols. He got worse today. 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 He denies any chest pain. No fevers. He wears home oxygen at 4 L due to chronic COPD. He is a non-smoker but is a former smoker. Physical Examination: Vital signs reviewed. HEENT exam unremarkable. Heart is regular rate and rhythm without any murmurs. Lungs have bilateral rhonchi and wheezing. Abdomen soft nontender. Extremities reveal 2+ symmetric edema which she says is normal for him. His neurologic exam is normal. Test Results: EKG is sinus rhythm with rate of 75. Multiple PVCs noted. He has nonspecific ST and T wave changes. Repeat EKG reveals no PVCs without ST changes as well. Chest x-ray reveals an evolving right lower lobe infiltrate which is changed from an x-ray done yesterday. Laboratory studies show normal white blood cell count. Creatinine 1.34. ABG is 7.40/42/88/26 Emergency Department Course and Treatment: Patient was given Solu-Medrol, albuterol and DuoNeb treatments. I will cover him with Rocephin and azithromycin due to the evolving infiltrate. His respiratory rate is elevated and I feel he needs to be admitted to the hospital even though his ABG does not look acute. Patient was discussed with hospitalist for admission. Treatment Plan: [] Disposition: Admit Impression: Acute on chronic respiratory failure Community-acquired pneumonia COPD exacerbation This note was generated with [employer] dictation software. It may contain incorrect words, spelling, and punctuation that were not noted in review of the chart prior to signing ED Disposition - Plan for ED Patient: Chief Complaint: Shortness of Breath Referrals: Hernan Murray MD [Primary Care Provider] -
[2018-09-24] MEDS: Albuterol 2.5 MG/3 ML VIAL.NEB. INHALATION ×3 (16:41→17:46)
[2018-09-24] MEDS: Ipratropium/Albuterol Sulfate 3 ML AMPUL.NEB INHALATION (16:41)
--- NOTE | 2018-09-24 16:42 | RAD_ITS ---
STUDY: X-RAY CHEST REASON FOR EXAM: Male, 63 years old. Shortness of breath with cough. TECHNIQUE: Single frontal view of the chest. COMPARISON: September 23, 2018 FINDINGS: The lungs are hyperexpanded. There is a patchy opacity at the right base which is slightly more prominent than on the prior study and may represent atelectasis or an early/developing pneumonia. Follow-up films recommended if the patient remains symptomatic. There is no demonstrated pleural abnormality. There is stable cardiomegaly. Normal mediastinum and asaf. Normal visualized pulmonary arteries. Normal visualized aortic arch and descending thoracic aorta. Normal visualized thoracic spine. Normal visualized ribs, clavicles, and shoulders. There is no demonstrated abnormality of the visualized soft tissue structures of the upper abdomen. RAD/Chest 1 View (Portable) IMPRESSION: Stable cardiomegaly with hyperexpansion. Patchy opacity at the right base representing atelectasis or early/developing pneumonia. Follow-up films recommended to clarify this, if patient remains symptomatic. Electronically Signed: Herbert Dao MD at 17:20 EST , Service support ,
[2018-09-24] MEDS: MethylPREDNISolone 125 MG/2 ML Vial IV (16:47)
[2018-09-24 17:01] LABS: Absolute Lymphocyte Count 0.54 X10^3/ul (0.83-4.51); Basophil# 0.02 X10^3/uL; Basophil% 0.2 % (0-1); Hematocrit 40.3 % (40-54); Hemoglobin 13.1 g/dl (13.0-16.5); Lymphocyte # 0.54 X10^3/ul (4.0); Lymphocyte % 6.6 % (19-41); Mean Corp Hgb Conc 32.5 g/gl (32-36); Mean Corpuscular Hgb 30.8 pg (27.0-32.0); Mean Corpuscular Volume 94.6 fL (80-94); Mean Platelet Vol. 9.9 fl (6.2-12.0); Monocyte% 6.1 % (0-10); Neutrophil # 6.98 X10^3/uL (2.7-7.7); Neutrophil % 85.3 % (47-70); Platelet Count 183 K/mm3 (150-450); RBC Distribution Width CV 15.9 % (11.6-14.6); RBC Distribution Width SD 53.2 fl (35.1-43.9); Red Blood Count 4.26 M/mm3 (4.6-6.2); White Blood Count 8.2 K/mm3 (4.4-11.0)
[2018-09-24 17:02] LABS: Differential Indicated SCAN CRITERIA MET; POSITIVE COUNT NO; POSITIVE DIFFERENTIAL YES; POSITIVE MORPHOLOGY NO
[2018-09-24 17:11] LABS: Allen Test POS; Base Excess 1 mmol/L (-2 to +2); Bicarbonate 26.2 mmol/L (22-26); Blood Gas Specimen Type ART; O2 Delivery Device Nasal Can; PO2 88 mmHG (75-100); SITE R Radial; SO2 97 % (95-99); Time Given 1700; Total Carbon Dioxide 27 mmol/L; pCO2 42.2 mmHg (35-45)
[2018-09-24 17:15] LABS: Anion Gap 8 (5-15); BUN 28 mg/dL (7-18); BUN/Creat Ratio 20.9 RATIO (10-20); Calcium,Total 9.2 mg/dL (8.5-10.1); Chloride 107 mmol/L (98-107); Creatinine, Serum 1.34 mg/dL (0.70-1.30); EST Glomerular Filtration Rate 57 mL/min (>60); Est Glom Filt Rate - Afr Amer 69 mL/min (>60); Glucose 184 mg/dL (74-106); Potassium 4.4 mmol/L (3.5-5.1); Sodium Level 142 mmol/L (136-145)
[2018-09-24 17:18] LABS: Differential Comment SCANNED
[2018-09-24 17:32] LABS: BNP,B-Type NATRIURETIC PEPTIDE 62.1 pg/mL (0-100)
[2018-09-24] MEDS: Ceftriaxone 1 GM/50 ML BAG IV (18:25)
--- NOTE | 2018-09-24 18:32 | HP.PCM_ITS ---
Problem List (1) Streptococcal pneumonia Status: Acute (2) (HFpEF) heart failure with preserved ejection fraction Status: Acute Qualifiers: Heart failure chronicity: acute Qualified Code(s): I50.31 - Acute diastolic (congestive) heart failure (3) COPD (chronic obstructive pulmonary disease) Status: Chronic Qualifiers: COPD type: COPD with acute exacerbation Qualified Code(s): J44.1 - Chronic obstructive pulmonary disease with (acute) exacerbation History of Present Illness Date of Admission: 09/24/18 Chief Complaint: shortness of breath. The patient is a 63 year old M presents with increasing shortness of breath over the past few days. Patient has noted palpitations and along with a shortness of breath. Patient attributes his shortness of breath due to his tachycardia and states that his heart rate should be between 50-60 bpm. He has been coughing up some phlegm but he swallows it so unable to visualize. Which is increasingly short of breath despite oxygen therapy. He has a similar presentation to prior episodes of COPD exacerbation. It was tachypneic upon arrival with a respiratory rate into the 40s. Patient received Solu-Medrol, aerosols and antibiotics with Rocephin and azithromycin. Currently feeling better at this time. Does state that he feels that we get his heart rate under better control from his atrial flutter that that would help his breathing. Patient does endorse that he has gained 11 pounds over the holidays. Does have lower extremity edema that is seeping. Does have weight gain as well. [] Past Medical History Past Medical History (Chronic Problems): Chronic Problems (Last Reviewed 08/16/18 @ 14:00 by Chantale Lockhart) COPD (chronic obstructive pulmonary disease) (Chronic) Chronic atrial fibrillation (Chronic) COPD (chronic obstructive pulmonary disease) (Chronic) CAD (coronary artery disease) (Chronic) Left bundle branch block (Chronic) CKD (chronic kidney disease), stage II (Chronic) Cardiomyopathy (Chronic) History of cardioversion (Chronic ~09/07/17) Atrial flutter (Chronic) Chronic respiratory failure (Chronic) Hypertension (Chronic) Scar of back (Chronic) 5 cm recurrent infected cystic lesion scar right lower medial back Former smoker (Chronic) quit 2013 BPH (benign prostatic hypertrophy) (Chronic) HLD (hyperlipidemia) (Chronic) History of CVA (cerebrovascular accident) (Chronic) 2012 GERD (gastroesophageal reflux disease) (Chronic) Stasis dermatitis of both legs (Chronic) with hyperpigmentation ANIBAL (obstructive sleep apnea) (Chronic) Vesico-colic fistula (Chronic) Pulmonary hypertension (Chronic) Cor pulmonale (Chronic) Morbid obesity with BMI of 45.0-49.9, adult (Chronic) Medical History: Medical History (Last Reviewed 09/24/18 @ 18:31 by Meliton Morel DO) Healthcare-associated pneumonia (Acute) J18.9 Chronic atrial fibrillation (Chronic) I48.2 COPD (chronic obstructive pulmonary disease) (Chronic) J44.9 CAD (coronary artery disease) (Chronic) I25.10 Left bundle branch block (Chronic) I44.7 CKD (chronic kidney disease), stage II (Chronic) N18.2 Cardiomyopathy (Chronic) I42.9 History of cardioversion (Chronic) Onset Date: ~09/07/17 Z98.890 Atrial flutter (Chronic) I48.92 Hypertension (Chronic) I10 Scar of back (Chronic) L90.5 5 cm recurrent infected cystic lesion scar right lower medial back Former smoker (Chronic) Z87.891 quit 2013 BPH (benign prostatic hypertrophy) (Chronic) N40.0 HLD (hyperlipidemia) (Chronic) E78.5 History of CVA (cerebrovascular accident) (Chronic) Z86.73 2012 GERD (gastroesophageal reflux disease) (Chronic) K21.9 Stasis dermatitis of both legs (Chronic) I83.11, I83.12 with hyperpigmentation ANIBAL (obstructive sleep apnea) (Chronic) G47.33 Vesico-colic fistula (Chronic) N32.1 Pulmonary hypertension (Chronic) I27.2 Cor pulmonale (Chronic) I27.81 Morbid obesity with BMI of 45.0-49.9, adult (Chronic) E66.01, Z68.42 CVA (cerebral vascular accident) Onset Date: ~2012 I63.9 NSTEMI (non-ST elevated myocardial infarction) (Resolved) I21.4 Allergies cashew nut Allergy (Verified 09/24/18 16:32) Vomiting cortisone [Cortisone] Allergy (Verified 09/24/18 16:32) Itching CASHEW Adverse Reaction (Uncoded 09/24/18 16:32) Vomiting Home Medications: Ambulatory Orders Medication Instructions Recorded Fluticasone/Salmeterol [Advair 2 puff INHALATION DAILY 11/29/17 250-50 Diskus] Albuterol Inhaler [Ventolin Hfa] 1 - 2 puff INHALATION Q4H PRN PRN 04/09/18 Amlodipine [Norvasc] 10 mg PO DAILY 04/09/18 Aspirin [Aspirin, Baby] 81 mg PO DAILY@0804/09/18 Atorvastatin Calcium [Lipitor] 40 mg PO QHS 04/09/18 Calcium (Elemental) [[place] 500] 500 mg PO DAILY@0804/09/18 Clopidogrel Bisulfate [Clopidogrel] 75 mg PO DAILY 04/09/18 Diltiazem HCl [Cartia Xt] 180 mg PO DAILY 04/09/18 Ferrous Sulfate 325 mg PO DAILY@79904/09/18 Furosemide [Lasix] 40 mg PO BIDLX 04/09/18 Glucosamine Sulf/Chondroitin A 1 ea PO DAILY 04/09/18 [Glucosamine-Chondroitin Cap] Ipratropium/Albuterol Sulfate 3 ml INHALATION BID 04/09/18 [Duoneb] Losartan Potassium [Cozaar] 50 mg PO DAILY 04/09/18 Potassium Chloride [K-Dur] 10 meq PO DAILY #30 tab 04/17/18 prednisone 10 mg tablet 10 mg PO QDAY #100 tab 08/16/18 umeclidinium 62.5 mcg/actuation 1 inh INHALATION QDAY #30 ea 09/02/18 blister powder for inhalation Doxycycline Hyclate [Vibramycin] 100 mg PO BID #14 cap 09/23/18 Guaifenesin [Mucinex] 800 mg PO BID PRN 09/23/18 Surgical History: Surgical History (Last Reviewed 09/24/18 @ 18:31 by Meliton Morel DO) Hx of decompression of ulnar nerve (Resolved) Z98.890 Surgical History: - - Cyst removal lower back, ulnar relocation right elbow. Psychiatric History: No pertinent psych hx Smoking Status: Former smoker - *Family History Maternal Family History: Family History (This Medical Record has been edited. Action required.) Mother Cancer Brother Sudden cardiac Father Heart disease History Items: Cancer - Lung and brain cancer Paternal Family History: Family History (This Medical Record has been edited. Action required.) Mother Cancer Brother Sudden cardiac Father Heart disease History Items: Heart Disease - father of a cardiomyopathy Sibling Family History: Family History (This Medical Record has been edited. Action required.) Mother Cancer Brother Sudden cardiac Father Heart disease History Items: - - brother dropped at 60 drinking a beer Review of Systems Constitutional: Reports: Chills, Malaise, - - States that he was hypothermic with a temp of 96 or 97. States that his normal temperature is 98.5?F.. Denies: Anorexia, Fever Eyes: Denies: Blurred vision, Double vision HEENT: Denies: Head Aches, Sinus Congestion, Sinus Drainage Cardiovascular: Reports: Edema - Chronic and unchanged though does have weeping of fluid.. Denies: Chest Pain, Palpitations Respiratory: Reports: Shortness of breath at rest, Sputum production. Denies: Cough Gastrointestinal: Denies: Abdominal Pain, Nausea, Vomiting Genitourinary: Denies: Dysuria Musculoskeletal: Denies: Joint Pain, Joint Tenderness Skin: Denies: Dryness, Jaundice Neurological: Denies: Numbness, Tingling, Focal weakness Psychiatric: Denies: Anxiety, Depression Hematologic/ Lymphatic: Denies: Easy Bruising, Easy Bleeding, Hx of blood clot Comment: A 10 point review of systems were negative except as mentioned in the history of present illness and the other review of systems. Family history reviewed as well. VTE Information - Inpt Only VTE Present on Admission: No VTE Mechan Device Prophylaxis: None VTE Pharm Prophylaxis ordered?: Yes Patient Problems: Active and Suspected Problems (Last Reviewed 08/16/18 @ 14:00 by Chantale Lockhart) Streptococcal pneumonia (Acute) (HFpEF) heart failure with preserved ejection fraction (Acute) - Physical Exam General: Alert, Cooperative, No apparent distress, - - No respiratory distress. No conversational dyspnea. Disheveled. HEENT: Atraumatic, Normocephalic, - - No scleral icterus Oral: Moist Mucosa, No Gingival or Mucosal Lesions/ Ulcerations, - - Edentulous with dentures in place Neck: No Nodes, Thyroid Normal Size and Texture Lungs: Diminished, Wheezes - Faint Cardiovascular: Regular rate, Regular Rhythm, Normal S1, Normal S2, No murmurs Abdomen: Bowel Sounds Present, Soft, Non Tender, Non-Distended Extremities: No Calf Tenderness, Edema - Weeping clear from his left lower extremity. Skin: - - Venous stasis dermatitis of lower extremities more prominent on the left than is on the right Musculoskeletal: No Tenderness to Palpation of Joints or Extremities, No Muscle Wasting Neurological: Sensory exam intact to light touch and pain, - - No clonus. Psych/Mental Status: Normal Affect, Appropriate Vital Signs Temp Pulse Resp BP Pulse Ox 36.7 C 67 20 H 168/77 H 97 09/24/18 16:23 09/24/18 17:47 09/24/18 17:47 09/24/18 17:34 09/24/18 17:47 Oxygen Flow Rate (L/min) 4 Oxygen Delivery Method Nasal Cannula Weight: 180.8 kg Body Mass Index (BMI) 51.1 Finger Stick Blood Glucose 120 Laboratory Tests Past 24 Hrs 09/24/18 09/24/18 09/24/18 16:45 16:45 16:45 WBC 8.2 RBC 4.26 L Hgb 13.1 Hct 40.3 MCV 94.6 H MCH 30.8 MCHC 32.5 RDW 15.9 H RDW Differential 53.2 H Plt Count 183 MPV 9.9 Immature Gran % (Auto) 1.800 H Neut % (Auto) 85.3 H Lymph % (Auto) 6.6 L [place] % (Auto) 6.1 Eos % (Auto) 0.0 Baso % (Auto) 0.2 Absolute Neuts (auto) 7.0 Absolute Lymphs (auto) 0.54 L Total Counted Not Reportable Differential Comment SCANNED Specimen Type Sample Site pH Bicarbonate Actual POC Total CO2 Base Excess O2 Saturation ABG pCO2 ABG pO2 [place] Test O2 Delivery Device Liter Flow Blood Gas Notified Whom Blood Gas Notified Time Sodium 142 Potassium 4.4 Chloride 107 Carbon Dioxide 27.0 Anion Gap 8 BUN 28 H Creatinine 1.34 H Estim Creat Clear Calc 63.90 Est GFR (MDRD) Af Amer 69 Est GFR (MDRD) Non-Af 57 L BUN/Creatinine Ratio 20.9 H Glucose 184 H Calcium 9.2 Troponin I 0.034 B-Natriuretic Peptide 62.1 09/24/18 17:07 WBC RBC Hgb Hct MCV MCH MCHC RDW RDW Differential Plt Count MPV Immature Gran % (Auto) Neut % (Auto) Lymph % (Auto) [place] % (Auto) Eos % (Auto) Baso % (Auto) Absolute Neuts (auto) Absolute Lymphs (auto) Total Counted Differential Comment Specimen Type ART Sample Site R Radial pH 7.40 Bicarbonate Actual 26.2 H POC Total CO2 27 Base Excess 1 O2 Saturation 97 ABG pCO2 42.2 ABG pO2 88 [place] Test POS O2 Delivery Device Nasal Can Liter Flow 4.0 Blood Gas Notified Whom ED MD Blood Gas Notified Time 1700 Sodium Potassium Chloride Carbon Dioxide Anion Gap BUN Creatinine Estim Creat Clear Calc Est GFR (MDRD) Af Amer Est GFR (MDRD) Non-Af BUN/Creatinine Ratio Glucose Calcium Troponin I B-Natriuretic Peptide EKG showed fluctuations in baseline but showed intraventricular conduction delay but was sinus rhythm. No other acute changes were noted. Unchanged from June 12, 2018. Chest x-ray reviewed and some right lower lobe infiltrate questionable costal cardiac effusion. Assessment/Plan All Active Problems (Last Reviewed 08/16/18 @ 14:00 by Chantale Lockhart) Streptococcal pneumonia (Acute) (HFpEF) heart failure with preserved ejection fraction (Acute) Healthcare-associated pneumonia (Acute) Hx of decompression of ulnar nerve (Resolved) Cellulitis of back [any part except buttock] (Resolved) NSTEMI (non-ST elevated myocardial infarction) (Resolved) Non-STEMI (non-ST elevated myocardial infarction) (Resolved) 1. Presumed pneumococcal pneumonia Patient last hospitalized in June, so has been 3 months since his most recent hospitalization We will treat the patient with a pulmonary toilet, antibiotics with Rocephin and azithromycin. Continue with the patient's guaifenesin. 2. Acute exacerbation of COPD Continue with steroids and bronchodilators Follow-up with Dr. Tello as outpatient Patient on chronic steroids use despite recommendations otherwise by his senior erp consultant. Patient essentially requesting quality of life over quantity 3. Acute heart failure with preserved ejection fraction EF 55% from echocardiogram from April 12, 2018 IV Lasix I do not appreciate much in way of heart failure on his x-ray but patient is clinically volume overloaded Continue losartan Comp gated by pulmonary hypertension 4. Chronic atrial fibrillation Currently in normal sinus rhythm. Status post cardioversion Patient expressing that he gets tachycardic then short of breath. Told that he is in sinus rhythm so is not in A. fib with RVR at this time and that likely is tachycardia and sense of palpitations is likely attributed to his increasing shortness of breath given his advanced COPD. Patient seem dismissive to that explanation. Advise follow-up with cardiology as outpatient Continue diltiazem. Patient not on anticoagulation due to history of GI bleed Patient stated that he did take a dose of amiodarone that he had left over when he had the tachycardia. Normally does not take amiodarone on a daily basis and had previously been discontinued due to potential side effects. 5. DVT prophylaxis with Lovenox 6. Advanced care planning: Patient already DNR Comfort Care arrest prior to arrival. Patient wishes to continue with DNR Comfort Care arrest with the additional components of no intubation and no PEG tube. Patient expressing desire to leave the . I discussed with the patient that I am not sure he would be ready and enough time but if the patient wanted to leave then he could certainly sign out AGAINST MEDICAL ADVICE. Patient was already familiar with the terminology of AGAINST MEDICAL ADVICE but has never invoked it previously. Patient stated that he would have to leave because his cats only have 1 day of food, and his cats are family to him.. Code Visit Inpatient E&M: 84026 Init Hosp L3
[2018-09-24] MEDS: Furosemide 100 MG/10 ML Vial 60 MG IV (20:02)
[2018-09-24] MEDS: Aspirin 81 MG TAB.CHEW PO (22:50)
[2018-09-24] MEDS: Losartan Potassium 50 MG Tablet PO (22:50)
[2018-09-24] MEDS: amLODIPine 10 MG Tablet PO (22:50)
[2018-09-24] MEDS: Atorvastatin Calcium 40 MG Tablet PO (22:50)
[2018-09-24] MEDS: 0.9% NaCl Peripheral Flush Adult/Peds IV (22:53)
[2018-09-24] MEDS: dilTIAZem CD 180 MG Capsule PO (22:53)
[2018-09-25] VITALS (17 sets, daily range): BP systolic 139–151; BP diastolic 55–63; PULSE 65–92; RESP 18; TEMP 36.4–36.7; O2SAT 94–97
[2018-09-25] MEDS: Ipratropium/Albuterol Sulfate 3 ML AMPUL.NEB INHALATION ×6 (02:09→23:01)
[2018-09-25] MEDS: 0.9% NaCl Peripheral Flush Adult/Peds IV ×5 (04:51→21:54)
--- NOTE | 2018-09-25 08:06 | CPS ---
Pt. refused PEP exercise training and usage. Will complete order. Pt. understands the usage and function of device.
[2018-09-25 08:58] LABS: Absolute Lymphocyte Count 0.22 X10^3/ul (0.83-4.51); Absolute Neutrophil Count 8.5 X10^3/uL (2.0-7.7); Basophil# 0.02 X10^3/uL; Basophil% 0.2 % (0-1); Hematocrit 38.4 % (40-54); Hemoglobin 12.4 g/dl (13.0-16.5); Lymphocyte # 0.22 X10^3/ul (4.0); Lymphocyte % 2.4 % (19-41); Mean Corp Hgb Conc 32.3 g/gl (32-36); Mean Corpuscular Hgb 30.6 pg (27.0-32.0); Mean Corpuscular Volume 94.8 fL (80-94); Mean Platelet Vol. 9.2 fl (6.2-12.0); Monocyte# 0.18 X10^3/uL; Neutrophil # 8.51 X10^3/uL (2.7-7.7); Neutrophil % 94.3 % (47-70); Platelet Count 182 K/mm3 (150-450); RBC Distribution Width CV 15.9 % (11.6-14.6); RBC Distribution Width SD 53.4 fl (35.1-43.9); Red Blood Count 4.05 M/mm3 (4.6-6.2)
[2018-09-25] MEDS: Calcium (Elemental) 500 MG Tablet PO (09:37)
[2018-09-25] MEDS: Furosemide 40 MG/4 ML Vial IV ×2 (09:37→18:26)
[2018-09-25] MEDS: Ferrous Sulfate 325 MG Tablet PO (09:37)
[2018-09-25 09:39] LABS: Anion Gap 8 (5-15); BUN 31 mg/dL (7-18); BUN/Creat Ratio 21.2 RATIO (10-20); Calcium,Total 8.9 mg/dL (8.5-10.1); Chloride 107 mmol/L (98-107); Creatinine, Serum 1.46 mg/dL (0.70-1.30); EST Glomerular Filtration Rate 52 mL/min (>60); Est Glom Filt Rate - Afr Amer 62 mL/min (>60); Estimated Creatinine Clearance 58.65 ml/min; Glucose 251 mg/dL (74-106); Potassium 4.4 mmol/L (3.5-5.1); Sodium Level 140 mmol/L (136-145)
[2018-09-25] MEDS: Acetaminophen 325 MG Tablet 650 MG PO (09:39)
[2018-09-25 09:40] LABS: Differential Indicated SCAN CRITERIA MET; POSITIVE COUNT NO; POSITIVE DIFFERENTIAL YES; POSITIVE MORPHOLOGY NO
[2018-09-25 09:41] LABS: Differential Comment SCANNED
--- NOTE | 2018-09-25 12:20 | PCM.PN.HOSP ---
Patient Problems: Active and Suspected Problems (Last Reviewed 09/24/18 @ 18:31 by Meliton Morel DO) Streptococcal pneumonia (Acute) (HFpEF) heart failure with preserved ejection fraction (Acute) Subjective: Patient seen and examined. He was admitted with a complaint of worsening shortness of breath with assisted palpitations over the past few days. He noted he had been tachycardic and states his regular heart rate should be between 50 and 60 bpm. He also had an associated cough of which he swallows the phlegm. He is on 4 L of oxygen at home on account of chronic hypoxic respiratory failure due to COPD. Patient was tachypneic on arrival with respiratory rate in the 40s. She was admitted and managed for acute on chronic hypoxic respiratory failure due to COPD exacerbation. Patient feels better this morning. He is back to his baseline 4 L of oxygen. He denies any palpitations or dizziness, any shortness of breath, any cough, any chest pain, any diarrhea or vomiting. Labs and vitals reviewed. Vitals/I&O's: Vital Signs Temp Pulse Resp BP Pulse Ox 98.1 F 76 18 146/63 H 97 09/25/18 09:35 09/25/18 11:02 09/25/18 09:35 09/25/18 09:35 09/25/18 09:35 Oxygen Flow Rate (L/min) 4 Oxygen Delivery Method Nasal Cannula Weight: 381 lb 9.922 oz Body Mass Index (BMI) 48.9 Finger Stick Blood Glucose 120 Intake and Output for Last 24 Hours 09/23/18 09/24/18 09/25/18 23:59 23:59 23:59 Intake Total 968 / 968 747 / 747 Output Total 850 / 850 275 / 275 Balance 118 / 118 472 / 472 General: Alert, Oriented x3, Cooperative, No apparent distress HEENT: Atraumatic, PERRLA, EOMI, Normocephalic Oral: Moist Mucosa Neck: Supple, No JVD, Negative Carotid Bruits Lungs: - - has fine crackles in mid and lower lung gutierrez bilaterally Cardiovascular: Regular rate, Regular Rhythm, Normal S1, Normal S2, No murmurs Abdomen: Bowel Sounds Present, Soft, Non Tender, Non-Distended, No Hepato-splenomegaly, Obese Extremities: - - bilateral LE pedal edema; LEs wrapped in MICHI bandage. Skin: No rashes, No breakdown Musculoskeletal: No Tenderness to Palpation of Joints or Extremities Lymphatic: No Cervical, Supraclavicular, or Inguinal Adenopathy Neurological: Cranial nerves II-XII grossly intact, Neuro grossly intact, Motor Exam 5/5 strength throughout Psych/Mental Status: Normal Affect, Appropriate, Alert and oriented to time, place, person, mood and affect Microbiology Past 72 Hours 09/25/18 02:50 Sputum, Expectorated/Coughed Gram Stain - Final 09/24/18 21:10 Mucosa - Nose Influenza Types A,B Direct FA (SIGRID) - Final 09/24/18 20:30 Urine, Clean Catch Streptococcus pneumoniae Antigen (M - Final 09/24/18 20:30 Urine, Clean Catch Legionella Antigen - Final Laboratory Results 09/24/18 16:45: WBC 8.2, RBC 4.26 L, Hgb 13.1, Hct 40.3, MCV 94.6 H, MCH 30.8, MCHC 32.5, RDW 15.9 H, RDW Differential 53.2 H, Plt Count 183, MPV 9.9, Immature Gran % (Auto) 1.800 H, Neut % (Auto) 85.3 H, Lymph % (Auto) 6.6 L, [place] % (Auto) 6.1, Eos % (Auto) 0.0, Baso % (Auto) 0.2, Absolute Neuts (auto) 7.0, Absolute Lymphs (auto) 0.54 L, Total Counted Not Reportable, Differential Comment SCANNED 09/24/18 16:45: Sodium 142, Potassium 4.4, Chloride 107, Carbon Dioxide 27.0, Anion Gap 8, BUN 28 H, Creatinine 1.34 H, Estim Creat Clear Calc 63.90, Est GFR (MDRD) Af Amer 69, Est GFR (MDRD) Non-Af 57 L, BUN/Creatinine Ratio 20.9 H, Glucose 184 H, Calcium 9.2, Troponin I 0.034 09/24/18 16:45: B-Natriuretic Peptide 62.1 09/24/18 17:07: Specimen Type ART, Sample Site R Radial, pH 7.40, Bicarbonate Actual 26.2 H, POC Total CO2 27, Base Excess 1, O2 Saturation 97, ABG pCO2 42.2, ABG pO2 88, [place] Test POS, O2 Delivery Device Nasal Can, Liter Flow 4.0, Blood Gas Notified Whom ED , Blood Gas Notified Time 1700 09/24/18 22:15: Troponin I 0.083 H 09/25/18 08:47: WBC 9.0, RBC 4.05 L, Hgb 12.4 L, Hct 38.4 L, MCV 94.8 H, MCH 30.6, MCHC 32.3, RDW 15.9 H, RDW Differential 53.4 H, Plt Count 182, MPV 9.2, Immature Gran % (Auto) 1.100 H, Neut % (Auto) 94.3 H, Lymph % (Auto) 2.4 L, [place] % (Auto) 2.0, Eos % (Auto) 0.0, Baso % (Auto) 0.2, Absolute Neuts (auto) 8.5 H, Absolute Lymphs (auto) 0.22 L, Total Counted Not Reportable, Differential Comment SCANNED 09/25/18 08:47: Sodium 140, Potassium 4.4, Chloride 107, Carbon Dioxide 25.0, Anion Gap 8, BUN 31 H, Creatinine 1.46 H, Estim Creat Clear Calc 58.65, Est GFR (MDRD) Af Amer 62, Est GFR (MDRD) Non-Af 52 L, BUN/Creatinine Ratio 21.2 H, Glucose 251 H, Calcium 8.9 Diagnostic Data Chest X-Ray 09/24/18 16:42 IMPRESSION: Stable cardiomegaly with hyperexpansion. Patchy opacity at the right base representing atelectasis or early/developing pneumonia. Follow-up films recommended to clarify this, if patient remains symptomatic. Electronically Signed: Herbert Dao MD at 17:20 EST , Service support , Current Medications Acetaminophen (Tylenol) 650 mg PO Q6H PRN PRN PRN Reason: Mild Pain (1-3)/Temp > 100.7 F Last Admin: 09/25/18 09:39 Dose: 650 mg Albuterol Sulfate (Ventolin Aerosols) 2.5 mg INHALATION Q2H PRN PRN PRN Reason: SHORTNESS OF BREATH Albuterol/Ipratropium (Duoneb) 3 ml INHALATION Q4H.RT WILLIAMS Last Admin: 09/25/18 10:53 Dose: 3 ml Amlodipine Besylate (Norvasc) 10 mg PO QHS [facility] Last Admin: 09/24/18 22:50 Dose: 10 mg Aspirin (Aspirin, Baby) 81 mg PO QHS [facility] Last Admin: 09/24/18 22:50 Dose: 81 mg Atorvastatin Calcium (Lipitor) 40 mg PO QHS [facility] Last Admin: 09/24/18 22:50 Dose: 40 mg Calcium Carbonate ([place] 500) 500 mg PO DAILY@0800 [facility] Last Admin: 09/25/18 09:37 Dose: 500 mg Diltiazem HCl (Cardizem Cd) 180 mg PO QHS [facility] Last Admin: 09/24/18 22:53 Dose: 180 mg Enoxaparin Sodium (Lovenox) 40 mg SC DAILY@1000 [facility] Last Admin: 09/25/18 09:41 Dose: Not Given Ferrous Sulfate (Ferrous Sulfate) 325 mg PO DAILY@0800 [facility] Last Admin: 09/25/18 09:37 Dose: 325 mg Furosemide (Lasix) 40 mg IV BIDLX [facility] Last Admin: 09/25/18 09:37 Dose: 40 mg Guaifenesin (Mucinex) 1,200 mg PO BID PRN PRN PRN Reason: CONGESTION Azithromycin 500 mg/ Dextrose 255 mls @ 250 mls/hr IV Q24@2200 [facility] Stop: 09/27/18 23:02 Ceftriaxone Sodium (Rocephin) 1 gm in 50 mls @ 100 mls/hr IV Q24@2200 [facility] Losartan Potassium (Cozaar) 50 mg PO QHS [facility] Last Admin: 09/24/18 22:50 Dose: 50 mg Magnesium Hydroxide (Milk Of Magnesia) 30 ml PO DAILY PRN PRN Reason: Constipation Methylprednisolone (Solu-Medrol) 40 mg IV Q8 [facility] Last Admin: 09/25/18 04:51 Dose: 40 mg Ondansetron HCl (Zofran) 4 mg IV Q8H PRN PRN PRN Reason: NAUSEA Oxycodone HCl (Oxyir) 5 mg PO Q6H PRN PRN PRN Reason: MOD-SEVERE PAIN (4-10/10) Potassium Chloride (K-Dur) [facility] Last Admin: 09/25/18 09:37 Dose: 10 meq Sodium Chloride () 5 - 15 ml IV UD PRN PRN Reason: SALINE FLUSH Last Admin: 09/25/18 09:37 Dose: 10 ml Medical Necessity - Tobacco Use Smoking Status: Former smoker Assessment/Plan All Active Problems (Last Reviewed 09/24/18 @ 18:31 by Meliton Morel DO) Streptococcal pneumonia (Acute) (HFpEF) heart failure with preserved ejection fraction (Acute) Healthcare-associated pneumonia (Acute) Hx of decompression of ulnar nerve (Resolved) Cellulitis of back [any part except buttock] (Resolved) NSTEMI (non-ST elevated myocardial infarction) (Resolved) Non-STEMI (non-ST elevated myocardial infarction) (Resolved) 1. Acute on chronic hypoxic respiratory failure due to COPD exacerbation and pneumonia admitted with worsenieng SOB on IV ceftriazone and azithromycin influenza screen, urine for strep and legionella antigen were negative currently down to his baseline 4L of oxygen; was requiring 5L of oxygen on admission on breathing treatments and steroids 2. Acute COPD exacerbation; as under 1. 3. community acquired pneumonia: as under 1. 4. Heart failure with preserved ejection fraction BNP was 62, making heart failure very unlikely CXR:stable cardiomegaly with hyperepansion. patchy opacity in right base representing atelectasis or early/developing pneumonia. EF is 55% currently on IV lasix. on losartan; not on beta krish; unsure if it is due to his COPD. 5. Chronic atrial fibrillation currently rate and rhythm controlled. Not on anticagulation o/a of history of GI bleed on cardizem will monitor 6.ANIBAL Has history of ANIBAL. However does not wear BiPAP because he does not believe that the sleep study was accurate. He states sleep study was not accurate because there was several parameters that were not normal including the fact that he had to sleep in the bed that was not his own, did not sleep in his own bedroom and had to wear clothes during the sleep study. He therefore does not think that the results of the sleep study or accurate and so refuses to wear the BiPAP. 7. hypertension: on amlodipine and losartan. 5. DVT prophylaxis with Lovenox Code status; DNRCCA Code Visit Inpatient E&M: 30070 [facility] Hosp L3
--- NOTE | 2018-09-25 12:25 | PN_ITS ---
Patient Problems: Active and Suspected Problems (Last Reviewed 09/24/18 @ 18:31 by Meliton Morel DO) Streptococcal pneumonia (Acute) (HFpEF) heart failure with preserved ejection fraction (Acute) Subjective: Patient seen and examined. He was admitted with a complaint of worsening shortness of breath with assisted palpitations over the past few days. He noted he had been tachycardic and states his regular heart rate should be between 50 and 60 bpm. He also had an associated cough of which he swallows the phlegm. He is on 4 L of oxygen at home on account of chronic hypoxic respiratory failure due to COPD. Patient was tachypneic on arrival with respiratory rate in the 40s. She was admitted and managed for acute on chronic hypoxic respiratory failure due to COPD exacerbation. Patient feels better this morning. He is back to his baseline 4 L of oxygen. He denies any palpitations or dizziness, any shortness of breath, any cough, any chest pain, any diarrhea or vomiting. Labs and vitals reviewed. Vitals/I&O's: Vital Signs Temp Pulse Resp BP Pulse Ox 98.1 F 76 18 146/63 H 97 09/25/18 09:35 09/25/18 11:02 09/25/18 09:35 09/25/18 09:35 09/25/18 09:35 Oxygen Flow Rate (L/min) 4 Oxygen Delivery Method Nasal Cannula Weight: 381 lb 9.922 oz Body Mass Index (BMI) 48.9 Finger Stick Blood Glucose 120 Intake and Output for Last 24 Hours 09/23/18 09/24/18 09/25/18 23:59 23:59 23:59 Intake Total 968 / 968 747 / 747 Output Total 850 / 850 275 / 275 Balance 118 / 118 472 / 472 General: Alert, Oriented x3, Cooperative, No apparent distress HEENT: Atraumatic, PERRLA, EOMI, Normocephalic Oral: Moist Mucosa Neck: Supple, No JVD, Negative Carotid Bruits Lungs: - - has fine crackles in mid and lower lung gutierrez bilaterally Cardiovascular: Regular rate, Regular Rhythm, Normal S1, Normal S2, No murmurs Abdomen: Bowel Sounds Present, Soft, Non Tender, Non-Distended, No Hepato- splenomegaly, Obese Extremities: - - bilateral LE pedal edema; LEs wrapped in MICHI bandage. Skin: No rashes, No breakdown Musculoskeletal: No Tenderness to Palpation of Joints or Extremities Lymphatic: No Cervical, Supraclavicular, or Inguinal Adenopathy Neurological: Cranial nerves II-XII grossly intact, Neuro grossly intact, Motor Exam 5/5 strength throughout Psych/Mental Status: Normal Affect, Appropriate, Alert and oriented to time, place, person, mood and affect Microbiology Past 72 Hours 09/25/18 02:50 Sputum, Expectorated/Coughed Gram Stain - Final 09/24/18 21:10 Mucosa - Nose Influenza Types A,B Direct FA (SIGRID) - Final 09/24/18 20:30 Urine, Clean Catch Streptococcus pneumoniae Antigen (M - Final 09/24/18 20:30 Urine, Clean Catch Legionella Antigen - Final Laboratory Results 09/24/18 16:45: WBC 8.2, RBC 4.26 L, Hgb 13.1, Hct 40.3, MCV 94.6 H, MCH 30.8, MCHC 32.5, RDW 15.9 H, RDW Differential 53.2 H, Plt Count 183, MPV 9.9, Immature Gran % (Auto) 1.800 H, Neut % (Auto) 85.3 H, Lymph % (Auto) 6.6 L, [place] % (Auto) 6.1, Eos % (Auto) 0.0, Baso % (Auto) 0.2, Absolute Neuts (auto) 7.0, Absolute Lymphs (auto) 0.54 L, Total Counted Not Reportable, Differential Comment SCANNED 09/24/18 16:45: Sodium 142, Potassium 4.4, Chloride 107, Carbon Dioxide 27.0, Anion Gap 8, BUN 28 H, Creatinine 1.34 H, Estim Creat Clear Calc 63.90, Est GFR (MDRD) Af Amer 69, Est GFR (MDRD) Non-Af 57 L, BUN/Creatinine Ratio 20.9 H, Glucose 184 H, Calcium 9.2, Troponin I 0.034 09/24/18 16:45: B-Natriuretic Peptide 62.1 09/24/18 17:07: Specimen Type ART, Sample Site R Radial, pH 7.40, Bicarbonate Actual 26.2 H, POC Total CO2 27, Base Excess 1, O2 Saturation 97, ABG pCO2 42.2, ABG pO2 88, Placido Test POS, O2 Delivery Device Nasal Can, Liter Flow 4.0, Blood Gas Notified Whom ED , Blood Gas Notified Time 1700 09/24/18 22:15: Troponin I 0.083 H 09/25/18 08:47: WBC 9.0, RBC 4.05 L, Hgb 12.4 L, Hct 38.4 L, MCV 94.8 H, MCH 30.6, MCHC 32.3, RDW 15.9 H, RDW Differential 53.4 H, Plt Count 182, MPV 9.2, Immature Gran % (Auto) 1.100 H, Neut % (Auto) 94.3 H, Lymph % (Auto) 2.4 L, [place] % (Auto) 2.0, Eos % (Auto) 0.0, Baso % (Auto) 0.2, Absolute Neuts (auto) 8.5 H, Absolute Lymphs (auto) 0.22 L, Total Counted Not Reportable, Differential Comment SCANNED 09/25/18 08:47: Sodium 140, Potassium 4.4, Chloride 107, Carbon Dioxide 25.0, Anion Gap 8, BUN 31 H, Creatinine 1.46 H, Estim Creat Clear Calc 58.65, Est GFR (MDRD) Af Amer 62, Est GFR (MDRD) Non-Af 52 L, BUN/Creatinine Ratio 21.2 H, Glucose 251 H, Calcium 8.9 Diagnostic Data Chest X-Ray 09/24/18 16:42 IMPRESSION: Stable cardiomegaly with hyperexpansion. Patchy opacity at the right base representing atelectasis or early/developing pneumonia. Follow-up films recommended to clarify this, if patient remains symptomatic. Electronically Signed: Herbert Dao MD at 17:20 EST , Service support , Current Medications Acetaminophen (Tylenol) 650 mg PO Q6H PRN PRN PRN Reason: Mild Pain (1-3)/Temp > 100.7 F Last Admin: 09/25/18 09:39 Dose: 650 mg Albuterol Sulfate (Ventolin Aerosols) 2.5 mg INHALATION Q2H PRN PRN PRN Reason: SHORTNESS OF BREATH Albuterol/Ipratropium (Duoneb) 3 ml INHALATION Q4H.RT WILLIAMS Last Admin: 09/25/18 10:53 Dose: 3 ml Amlodipine Besylate (Norvasc) 10 mg PO QHS [facility] Last Admin: 09/24/18 22:50 Dose: 10 mg Aspirin (Aspirin, Baby) 81 mg PO QHS [facility] Last Admin: 09/24/18 22:50 Dose: 81 mg Atorvastatin Calcium (Lipitor) 40 mg PO QHS [facility] Last Admin: 09/24/18 22:50 Dose: 40 mg Calcium Carbonate (Os-Antonio 500) 500 mg PO DAILY@0800 [facility] Last Admin: 09/25/18 09:37 Dose: 500 mg Diltiazem HCl (Cardizem Cd) 180 mg PO QHS [facility] Last Admin: 09/24/18 22:53 Dose: 180 mg Enoxaparin Sodium (Lovenox) 40 mg SC DAILY@1000 [facility] Last Admin: 09/25/18 09:41 Dose: Not Given Ferrous Sulfate (Ferrous Sulfate) 325 mg PO DAILY@0800 [facility] Last Admin: 09/25/18 09:37 Dose: 325 mg Furosemide (Lasix) 40 mg IV BIDLX [facility] Last Admin: 09/25/18 09:37 Dose: 40 mg Guaifenesin (Mucinex) 1,200 mg PO BID PRN PRN PRN Reason: CONGESTION Azithromycin 500 mg/ Dextrose 255 mls @ 250 mls/hr IV Q24@2200 [facility] Stop: 09/27/18 23:02 Ceftriaxone Sodium (Rocephin) 1 gm in 50 mls @ 100 mls/hr IV Q24@2200 [facility] Losartan Potassium (Cozaar) 50 mg PO QHS [facility] Last Admin: 09/24/18 22:50 Dose: 50 mg Magnesium Hydroxide (Milk Of Magnesia) 30 ml PO DAILY PRN PRN Reason: Constipation Methylprednisolone (Solu-Medrol) 40 mg IV Q8 [facility] Last Admin: 09/25/18 04:51 Dose: 40 mg Ondansetron HCl (Zofran) 4 mg IV Q8H PRN PRN PRN Reason: NAUSEA Oxycodone HCl (Oxyir) 5 mg PO Q6H PRN PRN PRN Reason: MOD-SEVERE PAIN (4-10/10) Potassium Chloride (K-Dur) [facility] meq [facility] Last Admin: 09/25/18 09:37 Dose: 10 meq Sodium Chloride () 5 - 15 ml IV UD PRN PRN Reason: SALINE FLUSH Last Admin: 09/25/18 09:37 Dose: 10 ml Medical Necessity - Tobacco Use Smoking Status: Former smoker Assessment/Plan All Active Problems (Last Reviewed 09/24/18 @ 18:31 by Meliton Morel DO) Streptococcal pneumonia (Acute) (HFpEF) heart failure with preserved ejection fraction (Acute) Healthcare-associated pneumonia (Acute) Hx of decompression of ulnar nerve (Resolved) Cellulitis of back [any part except buttock] (Resolved) NSTEMI (non-ST elevated myocardial infarction) (Resolved) Non-STEMI (non-ST elevated myocardial infarction) (Resolved) 1. Acute on chronic hypoxic respiratory failure due to COPD exacerbation and pneumonia * admitted with worsenieng SOB * on IV ceftriazone and azithromycin * influenza screen, urine for strep and legionella antigen were negative * currently down to his baseline 4L of oxygen; was requiring 5L of oxygen on admission * on breathing treatments and steroids * 2. Acute COPD exacerbation; as under 1. 3. community acquired pneumonia: as under 1. 4. Heart failure with preserved ejection fraction * BNP was 62, making heart failure very unlikely * CXR:stable cardiomegaly with hyperepansion. patchy opacity in right base representing atelectasis or early/developing pneumonia. * EF is 55% * currently on IV lasix. * on losartan; not on beta krish; unsure if it is due to his COPD. * 5. Chronic atrial fibrillation * currently rate and rhythm controlled. Not on anticagulation o/a of history of GI bleed * on cardizem * will monitor * 6.ANIBAL * Has history of ANIBAL. However does not wear BiPAP because he does not believe that the sleep study was accurate. He states sleep study was not accurate because there was several parameters that were not normal including the fact that he had to sleep in the bed that was not his own, did not sleep in his own bedroom and had to wear clothes during the sleep study. * He therefore does not think that the results of the sleep study or accurate and so refuses to wear the BiPAP. * 7. hypertension: on amlodipine and losartan. 5. DVT prophylaxis with Lovenox Code status; DNRCCA Code Visit Inpatient E&M: 90294 [facility] Hosp L3
--- NOTE | 2018-09-25 19:46 | CPS ---
pt refused pep therapy
[2018-09-25] MEDS: Aspirin 81 MG TAB.CHEW PO (21:53)
[2018-09-25] MEDS: amLODIPine 10 MG Tablet PO (21:53)
[2018-09-25] MEDS: Atorvastatin Calcium 40 MG Tablet PO (21:53)
[2018-09-25] MEDS: Losartan Potassium 50 MG Tablet PO (21:53)
[2018-09-25] MEDS: Ceftriaxone 1 GM/50 ML BAG IV (21:54)
[2018-09-25] MEDS: dilTIAZem CD 180 MG Capsule PO (22:01)
[2018-09-26] VITALS (13 sets, daily range): BP systolic 123–167; BP diastolic 54–74; PULSE 60–84; RESP 16–20; TEMP 36.7–37.1; O2SAT 86–98
[2018-09-26] MEDS: Ipratropium/Albuterol Sulfate 3 ML AMPUL.NEB INHALATION ×4 (03:26→14:59)
[2018-09-26] MEDS: 0.9% NaCl Peripheral Flush Adult/Peds IV (05:21)
[2018-09-26 06:31] LABS: Anion Gap 8 (5-15); BUN 37 mg/dL (7-18); BUN/Creat Ratio 26.1 RATIO (10-20); Calcium,Total 9.2 mg/dL (8.5-10.1); Chloride 107 mmol/L (98-107); Creatinine, Serum 1.42 mg/dL (0.70-1.30); EST Glomerular Filtration Rate 53 mL/min (>60); Est Glom Filt Rate - Afr Amer 64 mL/min (>60); Glucose 192 mg/dL (74-106); Potassium 4.6 mmol/L (3.5-5.1); Sodium Level 141 mmol/L (136-145)
[2018-09-26 07:01] LABS: Absolute Neutrophil Count 15.2 X10^3/uL (2.0-7.7); Basophil# 0.01 X10^3/uL; Basophil% 0.1 % (0-1); Hematocrit 41.9 % (40-54); Hemoglobin 13.2 g/dl (13.0-16.5); Mean Corp Hgb Conc 31.5 g/gl (32-36); Mean Corpuscular Hgb 30.1 pg (27.0-32.0); Mean Corpuscular Volume 95.4 fL (80-94); Monocyte# 0.24 X10^3/uL; Monocyte% 1.4 % (0-10); Neutrophil % 91.4 % (47-70); Platelet Count 216 K/mm3 (150-450); RBC Distribution Width CV 15.9 % (11.6-14.6); RBC Distribution Width SD 55.3 fl (35.1-43.9); Red Blood Count 4.39 M/mm3 (4.6-6.2); White Blood Count 16.6 K/mm3 (4.4-11.0)
[2018-09-26 07:12] LABS: POSITIVE COUNT NO; POSITIVE DIFFERENTIAL NO; POSITIVE MORPHOLOGY NO
[2018-09-26] MEDS: Ferrous Sulfate 325 MG Tablet PO (09:45)
[2018-09-26] MEDS: Calcium (Elemental) 500 MG Tablet PO (09:45)
--- NOTE | 2018-09-26 11:38 | CASEMGMT ---
[place] assessment: Face to Face with patient for initial transition planning/care coordination assessment. [place] introduced self and role at [facility], pt voices understanding and consents to assessment at this time. Pt is sitting up on side of bed with labored breathing at this time. Pt states 'I just got out of the bathroom so you are going to have to give me a minute.' Pt is A/Ox4 at this time and answers all questions appropriately at this time. Care providers, pharmacy, and demographics verified at this time. PCP: Trevor Specialists: Shorty, cardio; Omer pulreid Preferred Pharmacy: [facility] Insurance: [facility] Prescription Benefit: [facility] Living Will/HPOA: Pt states has LW/HPOA and his sister in law, Odalys Sheffield is HPOA but he only wants her called if he is unresponsive. Pt's AD's are on file at [facility] at this time. 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 Pt states that he is independent with ADL's. Transportation: Pt states drives self and states no transportation concerns. DME/HHC: Pt states has the following DME: cane, walker, nebulizer, and 4 liters nc thru [employer]. Pt states no hx of HHC or SNF in the past. Pt absolutely refuses at this time for anyone to come into his home. Pt states no concerns with going home at time of discharge and states is ready for discharge at this time. Pt is retired. Pt states quit smoking and rarely drinks ETOH. Pt states no further questions/concerns/needs at this time. CM to follow for any further discharge planning/needs. Advised pt to ask for CM if any further questions/concerns/needs at this time, voices understanding. Plan: [place]
--- NOTE | 2018-09-26 13:40 | DCINST_ITS ---
- Discharge Diagnoses Current Active Problems: Current Active and Chronic Problems (Last Reviewed 09/24/18 @ 18:31 by Meliton Morel DO) Streptococcal pneumonia (Acute) (HFpEF) heart failure with preserved ejection fraction (Acute) COPD (chronic obstructive pulmonary disease) (Chronic) You will use the following diet at home:: Cardiac - <2 grams sodium per day Your food should be the consistency of: Regular Your liquids should be the consistency of: Regular/Thin Discharge Activity: Return to Normal Activity Allergies/Adverse Reactions: Allergies cashew nut Allergy (Verified 09/24/18 16:32) Vomiting cortisone [Cortisone] Allergy (Verified 09/24/18 16:32) Itching CASHEW Adverse Reaction (Uncoded 09/24/18 16:32) Vomiting Medications to take at Discharge Fluticasone/Salmeterol [Advair 250-50 Diskus] 2 puff INHALATION DAILY 11/29/17 Albuterol Inhaler [Ventolin Hfa] 1 - 2 puff INHALATION Q4H PRN PRN 04/09/18 Amlodipine [Norvasc] 10 mg PO QHS 04/09/18 Aspirin [Aspirin, Baby] 81 mg PO QHS 04/09/18 Atorvastatin Calcium [Lipitor] 40 mg PO QHS 04/09/18 Calcium (Elemental) [Os-Antonio 500] 500 mg PO DAILY@0800 04/09/18 Clopidogrel Bisulfate [Clopidogrel] 75 mg PO QHS 04/09/18 Ferrous Sulfate 325 mg PO DAILY@0800 04/09/18 Furosemide [Lasix] 40 mg PO BID 04/09/18 Glucosamine Sulf/Chondroitin A [Glucosamine-Chondroitin Cap] 1 ea PO DAILY 04/09/18 Ipratropium/Albuterol Sulfate [Duoneb] 3 ml INHALATION TID 04/09/18 Losartan Potassium [Cozaar] 50 mg PO DAILY 04/09/18 Potassium Chloride [K-Dur] 10 meq PO DAILY #30 tab 04/17/18 umeclidinium 62.5 mcg/actuation blister powder for inhalation 1 inh INHALATION QDAY #30 ea 09/02/18 Doxycycline Hyclate [Vibramycin] 100 mg PO BID #14 cap 09/23/18 Guaifenesin [Mucinex] 800 mg PO BID PRN 09/23/18 Azithromycin 250 mg PO DAILY #3 tablet 09/26/18 Cefdinir [Omnicef [equiv]] 300 mg PO Q12H #6 capsule 09/26/18 Diltiazem CD [Cardizem CD] 240 mg PO DAILY #30 capsule 09/26/18 Prednisone 10 mg PO UD #30 tab 09/26/18 The following prescriptions were given: Azithromycin 250 mg PO DAILY #3 tablet Cefdinir [Omnicef [equiv]] 300 mg PO Q12H #6 capsule Diltiazem CD [Cardizem CD] 240 mg PO DAILY #30 capsule Prednisone 10 mg PO UD #30 tab Orders to be completed after discharge: Basic Metabolic Profile (BMP) Time Frame: 1 Week, Location: Laboratory Primary Care Physician: Hernan Murray MD [Primary Care Provider] - Please follow up with your Primary Care Physician in: 1-2 weeks Test Results: Test results from this visit will be discussed in further detail at your follow- up appointment, if applicable. Please Follow Up With: Torres Oro MD When: 2 weeks Proposed Discharge Date: 09/26/18
--- NOTE | 2018-09-26 14:57 | DS.PCM_ITS ---
<Dc Barragan - Last Filed: 09/26/18 14:53> Discharge Date and Diagnosis - Problem List Patient Problems: Active and Suspected Problems (Last Reviewed 09/24/18 @ 18:31 by Meliton Morel DO) Streptococcal pneumonia (Acute) (HFpEF) heart failure with preserved ejection fraction (Acute) Date of Admission: 09/24/18 Date of Discharge: 09/26/18 - Primary Discharge Diagnosis Active and Suspected Problems (Last Reviewed 09/24/18 @ 18:31 by Meliton Morel DO) Acute COPD exacerbation Presumed community-acquired streptococcal pneumonia (Acute) (HFpEF) heart failure with preserved ejection fraction (Acute) Obstructive sleep apnea-noncompliant with BiPAP at home Chronic atrial fibrillation Hypertension Morbid obesity CKD stage II BPH Hyperlipidemia GERD Pulmonary hypertension CAD - Secondary Discharge Diagnosis Chronic Problems (Last Reviewed 09/24/18 @ 18:31 by Meliton Morel DO) COPD (chronic obstructive pulmonary disease) (Chronic) Chronic atrial fibrillation (Chronic) COPD (chronic obstructive pulmonary disease) (Chronic) CAD (coronary artery disease) (Chronic) Left bundle branch block (Chronic) CKD (chronic kidney disease), stage II (Chronic) Cardiomyopathy (Chronic) History of cardioversion (Chronic ~09/07/17) Atrial flutter (Chronic) Chronic respiratory failure (Chronic) Hypertension (Chronic) Scar of back (Chronic) 5 cm recurrent infected cystic lesion scar right lower medial back Former smoker (Chronic) quit 2013 BPH (benign prostatic hypertrophy) (Chronic) HLD (hyperlipidemia) (Chronic) History of CVA (cerebrovascular accident) (Chronic) 2012 GERD (gastroesophageal reflux disease) (Chronic) Stasis dermatitis of both legs (Chronic) with hyperpigmentation ANIBAL (obstructive sleep apnea) (Chronic) Vesico-colic fistula (Chronic) Pulmonary hypertension (Chronic) Cor pulmonale (Chronic) Morbid obesity with BMI of 45.0-49.9, adult (Chronic) Hospital Course and Treatment Imaging Results: RAD/Chest 1 View (Portable) IMPRESSION: Stable cardiomegaly with hyperexpansion. Patchy opacity at the right base representing atelectasis or early/developing pneumonia. Follow-up films recommended to clarify this, if patient remains symptomatic. Consultations 09/25/18 01:25 Consult: Onc/Wound/telecommunications consultant Routine Comment: Reason for Consult:: seeping swollen and reddened LLE. Operations: None Summary of Care Provided: Hospital Course: The patient is a 63 year old M with extensive past medical history as above who presented to the emergency room with increased shortness of breath, lower extremity edema, weight gain, afebrile and without elevation in white blood cells, however with a infiltrate present on the chest x-ray at the right lung base. He was admitted to the PCU with suspected COPD exacerbation, diastolic heart failure exacerbation, and right lower lobe community-acquired pneumonia. He was given Lasix, Solu-Medrol, aerosols, Rocephin and azithromycin. An echocardiogram was not repeated as he had one with a preserved ejection fraction in March of last year. His breathing improved significantly however he continued to complain about his heart being rapid. He was noted to have heart rate in the 70s and he stated that this is too fast for him and insisted that he needed additional agents to control heart rate. He stated that if we did not give him any that he had some old amiodarone that he would go home and take. We discussed the patient's concerns with his shirring tender, Dr. Oro, who stated that it would be okay for him to increase his home Cardizem from 180-240. We felt that the patient would benefit from an additional night in the hospital with IV therapy as he had some ongoing shortness of breath and conversational dyspnea, however the patient was insistent that he should be discharged home as he needed to take care of his cats. We are agreeable to discharging him on 3 more days of antibiotics for a total of 5 days of therapy, a prednisone taper, and for him to continue oral Lasix at home. He has oxygen at home already along with inhalers that he will need to continue. He was discharged home in stable condition and advised to follow-up with cardiology in 1-2 weeks, and his PCP in 1-2 weeks. He refused home health care. Also of note he refuses to use BiPAP at home stating that he does not believe the results of his sleep study. This patient was seen by Dc Barragan PA-C under the supervision of Doctor Singh. [] Patient Problems: Active and Suspected Problems (Last Reviewed 09/24/18 @ 18:31 by Meliton Morel DO) Streptococcal pneumonia (Acute) (HFpEF) heart failure with preserved ejection fraction (Acute) - Physical Exam General: Alert, Oriented x3, Cooperative HEENT: Atraumatic, PERRLA, EOMI, Normocephalic Neck: Supple, No JVD, Negative Carotid Bruits Lungs: Diminished, Wheezes Cardiovascular: No murmurs, Irregular Rate Abdomen: Bowel Sounds Present, Soft, Non Tender, Obese Extremities: Capillary Refill Less than 3 Seconds, Edema Skin: No rashes, No breakdown Musculoskeletal: No Tenderness to Palpation of Joints or Extremities Neurological: Cranial nerves II-XII grossly intact Psych/Mental Status: Normal Affect, Appropriate, Alert and oriented to time, place, person, mood and affect Vital Signs Temp Pulse Resp BP Pulse Ox 98.6 F 77 20 H 153/69 H 94 09/26/18 09:41 09/26/18 11:00 09/26/18 10:46 09/26/18 09:41 09/26/18 13:15 Oxygen Flow Rate (L/min) [ 4 AMBULATION with Oxygen] Oxygen Flow Rate (L/min) 4 Oxygen Delivery Method Nasal Cannula Weight: 378 lb 1.484 oz Body Mass Index (BMI) 48.9 Finger Stick Blood Glucose 120 Intake and Output for Last 24 Hours 09/24/18 09/25/18 09/26/18 23:59 23:59 23:59 Intake Total 968 / 968 1272 / 1272 1220.5 / 1220.5 Output Total 850 / 850 650 / 650 1375 / 1375 Balance 118 / 118 622 / 622 -154.5 / -154.5 Microbiology Past 72 Hours 09/25/18 02:50 Gram Stain - Final Sputum, Expectorated/Coughed Respiratory Culture - Preliminary Appears to be normal respiratory jorje. Further studies to follow. 09/24/18 21:10 Influenza Types A,B Direct FA (SIGRID) - Final Mucosa - Nose 09/24/18 20:30 Streptococcus pneumoniae Antigen (M - Final Urine, Clean Catch 09/24/18 20:30 Legionella Antigen - Final Urine, Clean Catch Laboratory Tests Past 24 Hrs 09/26/18 09/26/18 05:35 05:35 WBC 16.6 H RBC 4.39 L Hgb 13.2 Hct 41.9 MCV 95.4 H MCH 30.1 MCHC 31.5 L RDW 15.9 H RDW Differential 55.3 H Plt Count 216 MPV 10.0 Immature Gran % (Auto) 1.100 H Neut % (Auto) 91.4 H Lymph % (Auto) 6.0 L [place] % (Auto) 1.4 Eos % (Auto) 0.0 Baso % (Auto) 0.1 Absolute Neuts (auto) 15.2 H Absolute Lymphs (auto) 1.00 Total Counted Not Reportable Sodium 141 Potassium 4.6 Chloride 107 Carbon Dioxide 26.0 Anion Gap 8 BUN 37 H Creatinine 1.42 H Estim Creat Clear Calc 60.30 Est GFR (MDRD) Af Amer 64 Est GFR (MDRD) Non-Af 53 L BUN/Creatinine Ratio 26.1 H Glucose 192 H Calcium 9.2 Discharge Diet: Low fat/ Low Cholesterol, 2000 mg Sodium Diet Discharge Activity: Return to Normal Activity Home Medications: Medications to take at Discharge Fluticasone/Salmeterol [Advair 250-50 Diskus] 2 puff INHALATION DAILY 11/29/17 Albuterol Inhaler [Ventolin Hfa] 1 - 2 puff INHALATION Q4H PRN PRN 04/09/18 Amlodipine [Norvasc] 10 mg PO QHS 04/09/18 Aspirin [Aspirin, Baby] 81 mg PO QHS 04/09/18 Atorvastatin Calcium [Lipitor] 40 mg PO QHS 04/09/18 Calcium (Elemental) [[place] 500] 500 mg PO DAILY@0804/09/18 Clopidogrel Bisulfate [Clopidogrel] 75 mg PO QHS 04/09/18 Ferrous Sulfate 325 mg PO DAILY@79904/09/18 Furosemide [Lasix] 40 mg PO BID 04/09/18 Glucosamine Sulf/Chondroitin A [Glucosamine-Chondroitin Cap] 1 ea PO DAILY 04/09/18 Ipratropium/Albuterol Sulfate [Duoneb] 3 ml INHALATION TID 04/09/18 Losartan Potassium [Cozaar] 50 mg PO DAILY 04/09/18 Potassium Chloride [K-Dur] 10 meq PO DAILY #30 tab 04/17/18 umeclidinium 62.5 mcg/actuation blister powder for inhalation 1 inh INHALATION QDAY #30 ea 09/02/18 Guaifenesin [Mucinex] 800 mg PO BID PRN 09/23/18 Azithromycin 250 mg PO DAILY #3 tablet 09/26/18 Cefdinir [Omnicef [equiv]] 300 mg PO Q12H #6 capsule 09/26/18 Diltiazem CD [Cardizem CD] 240 mg PO DAILY #30 capsule 09/26/18 Prednisone 10 mg PO UD #30 tab 09/26/18 Following Prescrptions Were Given to Patient: Azithromycin 250 mg PO DAILY #3 tablet Cefdinir [Omnicef [equiv]] 300 mg PO Q12H #6 capsule Diltiazem CD [Cardizem CD] 240 mg PO DAILY #30 capsule Prednisone 10 mg PO UD #30 tab Other Amb Orders: Basic Metabolic Profile (BMP) Time Frame: 1 Week, Location: Laboratory Primary Care Physician: Hernan Murray MD [Primary Care Provider] - Please follow up with your Primary Care Physician in: 1-2 weeks Please Follow Up With: Torres Oro MD When: 2 weeks Please Follow Up With: Hernan Murray MD Disposition: Home Medical Necessity - Tobacco Use Smoking Status: Former smoker Meaningful Use Info Meaningful Use Diagnoses (Choose all that apply): CHF - CHF MICHI/ARB ordered at discharge?: Yes Documented LVEF (%): 55 <Karri Winters - Last Filed: 09/26/18 15:35> Discharge Date and Diagnosis - Primary Discharge Diagnosis Active and Suspected Problems (Last Reviewed 09/24/18 @ 18:31 by Meliton Morel DO) Streptococcal pneumonia (Acute) (HFpEF) heart failure with preserved ejection fraction (Acute) - Secondary Discharge Diagnosis Chronic Problems (Last Reviewed 09/24/18 @ 18:31 by Meliton Morel DO) COPD (chronic obstructive pulmonary disease) (Chronic) Chronic atrial fibrillation (Chronic) COPD (chronic obstructive pulmonary disease) (Chronic) CAD (coronary artery disease) (Chronic) Left bundle branch block (Chronic) CKD (chronic kidney disease), stage II (Chronic) Cardiomyopathy (Chronic) History of cardioversion (Chronic ~09/07/17) Atrial flutter (Chronic) Chronic respiratory failure (Chronic) Hypertension (Chronic) Scar of back (Chronic) 5 cm recurrent infected cystic lesion scar right lower medial back Former smoker (Chronic) quit 2013 BPH (benign prostatic hypertrophy) (Chronic) HLD (hyperlipidemia) (Chronic) History of CVA (cerebrovascular accident) (Chronic) 2012 GERD (gastroesophageal reflux disease) (Chronic) Stasis dermatitis of both legs (Chronic) with hyperpigmentation ANIBAL (obstructive sleep apnea) (Chronic) Vesico-colic fistula (Chronic) Pulmonary hypertension (Chronic) Cor pulmonale (Chronic) Morbid obesity with BMI of 45.0-49.9, adult (Chronic) Hospital Course and Treatment Consultations 09/25/18 01:25 Consult: Onc/Wound/telecommunications consultant Routine Comment: Reason for Consult:: seeping swollen and reddened LLE. Summary of Care Provided: This patient was seen in conjunction with Dc Barragan PA-C . I have independently interviewed and examined the patient and reviewed pertinent historical, laboratory, and other data. Please refer to Dc Barragan PA-C note for details of this patient's presentation, findings, and recommendations. I have reviewed Dc Barragan PA-C note and concur with documented findings. In brief, patient is he patient is a 63 year old M admitted with progressive shortness of breath and assessment of COPD exacerbation as well as acute diastolic congestive heart failure made. Admitted to monitored bed for subsequent management Patient was seen and examined on the day of his discharge instructions reviewed with him. Hospital course as elicited above by Dc Barragan - Physical Exam Vital Signs Temp Pulse Resp BP Pulse Ox 98.6 F 71 16 153/69 H 94 09/26/18 09:41 09/26/18 14:59 09/26/18 14:59 09/26/18 09:41 09/26/18 13:15 Oxygen Flow Rate (L/min) [ 4 AMBULATION with Oxygen] Oxygen Flow Rate (L/min) 4 Oxygen Delivery Method Nasal Cannula Weight: 171.5 kg Body Mass Index (BMI) 48.9 Finger Stick Blood Glucose 120 Intake and Output for Last 24 Hours 09/24/18 09/25/18 09/26/18 23:59 23:59 23:59 Intake Total 968 / 968 1272 / 1272 1220.5 / 1220.5 Output Total 850 / 850 650 / 650 1375 / 1375 Balance 118 / 118 622 / 622 -154.5 / -154.5 Microbiology Past 72 Hours 09/25/18 02:50 Gram Stain - Final Sputum, Expectorated/Coughed Respiratory Culture - Preliminary Appears to be normal respiratory jorje. Further studies to follow. 09/24/18 21:10 Influenza Types A,B Direct FA (SIGRID) - Final Mucosa - Nose 09/24/18 20:30 Streptococcus pneumoniae Antigen (M - Final Urine, Clean Catch 09/24/18 20:30 Legionella Antigen - Final Urine, Clean Catch Laboratory Tests Past 24 Hrs 09/26/18 09/26/18 05:35 05:35 WBC 16.6 H RBC 4.39 L Hgb 13.2 Hct 41.9 MCV 95.4 H MCH 30.1 MCHC 31.5 L RDW 15.9 H RDW Differential 55.3 H Plt Count 216 MPV 10.0 Immature Gran % (Auto) 1.100 H Neut % (Auto) 91.4 H Lymph % (Auto) 6.0 L [place] % (Auto) 1.4 Eos % (Auto) 0.0 Baso % (Auto) 0.1 Absolute Neuts (auto) 15.2 H Absolute Lymphs (auto) 1.00 Total Counted Not Reportable Sodium 141 Potassium 4.6 Chloride 107 Carbon Dioxide 26.0 Anion Gap 8 BUN 37 H Creatinine 1.42 H Estim Creat Clear Calc 60.30 Est GFR (MDRD) Af Amer 64 Est GFR (MDRD) Non-Af 53 L BUN/Creatinine Ratio 26.1 H Glucose 192 H Calcium 9.2 Code Visit Inpatient E&M: 21304 Disch Hosp
--- NOTE | 2018-09-26 15:56 | NURSING ---
Was asked to see patient for red/weeping legs. the LLE with some moderate edema and a small peeling area to the left mejia. moderate amount of serous drainage noted. patient stated he is going home. applied dry dressing and kerlix. reapplied MICHI wraps. legs elevated.
--- NOTE | 2018-09-27 14:06 | CASEMGMT ---
KYE CM DC Phone call DC DATE: 09/26/18 DC Disposition: home LACE/STRATA: 25/12 Attempted call to patient. Unable to leave message. Eyad BAILONN RN ACM
== END 2018-09-26 17:13 | disposition home or self-care (01) | DRG 291 ==
LOC: ED 18:34 → PCU 18:36
PROVIDERS: Student in an Organized Health Care Education/Training Program; Emergency Provider Emergency Medicine; Family Provider Family Medicine; PCP Family Medicine; Visit Provider Internal Medicine
DX: I13.0 Hypertensive heart and chronic kidney disease with heart failure and stage 1 through stage 4 chronic kidney disease, or unspecified chronic kidney disease (principal); J15.4 Pneumonia due to other streptococci; J96.21 Acute and chronic respiratory failure with hypoxia; I50.31 Acute diastolic (congestive) heart failure; Z68.42 Body mass index [BMI] 45.0-49.9, adult; J44.1 Chronic obstructive pulmonary disease with (acute) exacerbation; J44.0 Chronic obstructive pulmonary disease with (acute) lower respiratory infection; I42.9 Cardiomyopathy, unspecified; G47.33 Obstructive sleep apnea (adult) (pediatric); I48.2 Chronic atrial fibrillation; E66.01 Morbid (severe) obesity due to excess calories; E78.5 Hyperlipidemia, unspecified; K21.9 Gastro-esophageal reflux disease without esophagitis; I27.20 Pulmonary hypertension, unspecified; I25.10 Atherosclerotic heart disease of native coronary artery without angina pectoris; N40.0 Benign prostatic hyperplasia without lower urinary tract symptoms; N18.2 Chronic kidney disease, stage 2 (mild); I87.2 Venous insufficiency (chronic) (peripheral); Z99.81 Dependence on supplemental oxygen; Z79.899 Other long term (current) drug therapy; Z87.891 Personal history of nicotine dependence; Z91.19 Patient's noncompliance with other medical treatment and regimen; Z66 Do not resuscitate; Z86.73 Personal history of transient ischemic attack (TIA), and cerebral infarction without residual deficits
CPT/HCPCS: 36415; 36600; 71045; 71046; 80048; 82803; 83880; 84484; 85025; 87070; 87205; 87449; 87804; 93005; 94640; 99283; 99285; J7040; A4216; J1940

== ENCOUNTER 2018-09-27 15:50 | Observation (INO) | payer MEDICARE, SELFPAY ==
[2018-09-24 19:33] VITALS: BMI 48.9
[2018-09-27] VITALS (11 sets, daily range): BP systolic 147–187; BP diastolic 54–84; PULSE 64–94; RESP 17–23; TEMP 36.5–36.8; O2SAT 96–99; BMI 48.8; BMI 48.9; BMI 49.4
--- NOTE | 2018-09-27 16:00 | ED.RN ---
Pt stated that he has thought of committing suicide with a 357. Pt also said that there were a few doctors that he would like to get his hands on a take out also.
--- NOTE | 2018-09-27 16:09 | EKG12_ITS ---
Test Reason : SOB Blood Pressure : / mmHG Vent. Rate : 059 BPM Atrial Rate : 059 BPM P-R Int : 182 ms QRS Dur : 124 ms QT Int : 504 ms P-R-T Axes : 000 069 067 degrees QTc Int : 498 ms Sinus bradycardia Non-specific intra-ventricular conduction delay Nonspecific ST abnormality Abnormal ECG Confirmed by TENA HERRERA, SANTHOSH ([id number]), fashion editor AZRA DOBBINS ([id number]) on 09/27/2018 5:03:42 PM Referred By: IAN Confirmed By:SANTHOSH MADSEN MD
--- NOTE | 2018-09-27 16:24 | ED.RN ---
this rn asks patient if he and physician discussed treatment plan. pt states either you will find out what is wrong with me or i will go home and suffocate. customer operations intern aware. dr klein
[2018-09-27 16:35] LABS: Hemoglobin 13.2 g/dl (13.0-16.5); Mean Platelet Vol. 9.6 fl (6.2-12.0)
[2018-09-27 16:37] LABS: Hematocrit 41.1 % (40-54); Mean Corp Hgb Conc 32.1 g/gl (32-36); Mean Corpuscular Hgb 30.5 pg (27.0-32.0); Mean Corpuscular Volume 94.9 fL (80-94); Platelet Count 218 K/mm3 (150-450); RBC Distribution Width CV 15.6 % (11.6-14.6); RBC Distribution Width SD 52.9 fl (35.1-43.9); Red Blood Count 4.33 M/mm3 (4.6-6.2)
[2018-09-27 16:38] LABS: Absolute Lymphocyte Count 0.83 X10^3/ul (0.83-4.51); Absolute Neutrophil Count 13.3 X10^3/uL (2.0-7.7); Basophil# 0.03 X10^3/uL; Basophil% 0.2 % (0-1); Differential Indicated SCAN CRITERIA MET; Lymphocyte # 0.83 X10^3/ul (4.0); Lymphocyte % 5.5 % (19-41); Monocyte% 3.3 % (0-10); Neutrophil % 88.9 % (47-70); POSITIVE COUNT YES; POSITIVE DIFFERENTIAL NO; POSITIVE MORPHOLOGY YES
--- NOTE | 2018-09-27 16:40 | RAD_ITS ---
STUDY: X-RAY CHEST REASON FOR EXAM: Male, 63 years old. Shortness of breath TECHNIQUE: Single AP portable view of the chest. COMPARISON: Prior study of 09/24/2018 FINDINGS: monitoring manager leads are seen. There is a right lower lobe infiltrate, minimally improved from the previous study. There is no demonstrated pleural abnormality. There is mild cardiac enlargement. Normal mediastinum and asaf. Normal visualized pulmonary arteries. Normal visualized aortic arch and descending thoracic aorta. There are diffuse degenerative changes of the visualized thoracic spine. Normal visualized ribs, clavicles, and shoulders. There is no demonstrated abnormality of the visualized soft tissue structures of the upper abdomen. RAD/Chest 1 View (Portable) IMPRESSION: Right lower lobe infiltrate, slightly improved from the previous study. Mild cardiomegaly. Electronically Signed: Tito Walker MD at 17:27 EST , Service support ,
[2018-09-27 16:43] LABS: D-Dimer Quantitative (DVT/PE) 0.55 FEU/ug/m (0.27-0.49)
--- NOTE | 2018-09-27 16:43 | ED.RN ---
ddimer 0.55 called from the lab dr watson aware
[2018-09-27 16:57] LABS: Anisocytosis RARE; Macrocytosis RARE; Platelet Estimate ADEQUATE (ADEQ)
[2018-09-27 17:20] LABS: BNP,B-Type NATRIURETIC PEPTIDE 51.3 pg/mL (0-100)
[2018-09-27 17:42] LABS: Anion Gap 9 (5-15); BUN 41 mg/dL (7-18); BUN/Creat Ratio 27.3 RATIO (10-20); Calcium,Total 9.7 mg/dL (8.5-10.1); Chloride 105 mmol/L (98-107); EST Glomerular Filtration Rate 50 mL/min (>60); Est Glom Filt Rate - Afr Amer 60 mL/min (>60); Estimated Creatinine Clearance 58.68 ml/min; Glucose 195 mg/dL (74-106); Potassium 4.8 mmol/L (3.5-5.1); Sodium Level 142 mmol/L (136-145)
--- NOTE | 2018-09-27 18:13 | ED.VISSUMM ---
- ER Visit Summary Date of Service: 09/27/18 Chief Complaint: [Shortness of breath] History of Present Illness: The patient is a 63 M [presents to the emergency department complaint of shortness of breath that is been ongoing for for 5 days. Patient was admitted recently and just discharged yesterday for community-acquired pneumonia and COPD exacerbation. Patient denies any chest pain. Patient complains of extreme exertional dyspnea and states that he has bumped up his oxygen to 8 L at home to help compensate. Patient normally is on 4 L of oxygen at home. He denies any fevers. He denies recent travel or surgery.] Patient believes that his dyspnea may be related to his heart rate being in the 70s and 80s which is abnormally high for him. Patient states that at one point yesterday his heart rate went up over 100. Patient does have a history of atrial flutter. Patient states that his normal heart rate is between 50 and 60. Physical Examination: [HEENT-PERRLA, EOMI. Cranial nerves II through XII grossly intact. TMs clear. Mucous membranes moist. No adenopathy. Cardiovascular-regular rate and rhythm without murmur or ectopy Lungs-minutes bilaterally with some rhonchi and some pain expiratory wheezes. Mild tachypnea. No accessory muscles or retractions. Abdomen-normoactive bowel sounds, soft, nontender, no rebound or rigidity, no peritoneal signs. Extremities-intact ?4, normal range of motion, normal pulses, atraumatic. Patient has diffuse lower extremity edema bilaterally.] Test Results: [EKG obtained on arrival showed a sinus rhythm with a ventricular rate of 70 bpm with a left bundle branch block. CBC with differential showed an elevated white count of 15,000, hemoglobin 13, hematocrit 41, platelets 218, 89% segs. Chemistries unremarkable. BUN was 41 and creatinine 1.5. Troponin was 0.078. BNP was 51. D-dimer was 0.55 which when corrected for age is normal.] Emergency Department Course and Treatment: [And received DuoNeb aerosol. Case was discussed with Dr. John Paul Toledo who was covering for Dr. Oro and he did not feel any further adjustments in his medications were indicated. I explained to the patient that he does not have any indication for cardioversion.] Treatment Plan: [Case was discussed with hospitalist and patient will be admitted] Disposition: [Admit] Impression: [COPD exacerbation Pneumonia Exertional dyspnea] This note was generated with [employer] dictation software. It may contain incorrect words, spelling, and punctuation that were not noted in review of the chart prior to signing ED Disposition - Plan for ED Patient: Chief Complaint: Shortness of Breath Referrals: Hernan Murray MD [Primary Care Provider] -
--- NOTE | 2018-09-27 18:19 | ED.DCSUM_ITS ---
- ER Visit Summary Date of Service: 09/27/18 Chief Complaint: [Shortness of breath] History of Present Illness: The patient is a 63 M [presents to the emergency department complaint of shortness of breath that is been ongoing for for 5 days. Patient was admitted recently and just discharged yesterday for community- acquired pneumonia and COPD exacerbation. Patient denies any chest pain. Patient complains of extreme exertional dyspnea and states that he has bumped up his oxygen to 8 L at home to help compensate. Patient normally is on 4 L of oxygen at home. He denies any fevers. He denies recent travel or surgery.] Patient believes that his dyspnea may be related to his heart rate being in the 70s and 80s which is abnormally high for him. Patient states that at one point yesterday his heart rate went up over 100. Patient does have a history of atrial flutter. Patient states that his normal heart rate is between 50 and 60. Physical Examination: [HEENT-PERRLA, EOMI. Cranial nerves II through XII grossly intact. TMs clear. Mucous membranes moist. No adenopathy. Cardiovascular-regular rate and rhythm without murmur or ectopy Lungs-minutes bilaterally with some rhonchi and some pain expiratory wheezes. Mild tachypnea. No accessory muscles or retractions. Abdomen-normoactive bowel sounds, soft, nontender, no rebound or rigidity, no peritoneal signs. Extremities-intact ?4, normal range of motion, normal pulses, atraumatic. Patient has diffuse lower extremity edema bilaterally.] Test Results: [EKG obtained on arrival showed a sinus rhythm with a ventricular rate of 70 bpm with a left bundle branch block. CBC with differential showed an elevated white count of 15,000, hemoglobin 13, hematocrit 41, platelets 218, 89% segs. Chemistries unremarkable. BUN was 41 and creatinine 1.5. Troponin was 0.078. BNP was 51. D-dimer was 0.55 which when corrected for age is normal.] Emergency Department Course and Treatment: [And received DuoNeb aerosol. Case was discussed with Dr. John Paul Toledo who was covering for Dr. Oro and he did not feel any further adjustments in his medications were indicated. I explained to the patient that he does not have any indication for cardioversion.] Treatment Plan: [Case was discussed with hospitalist and patient will be admitted] Disposition: [Admit] Impression: [COPD exacerbation Pneumonia Exertional dyspnea] This note was generated with [employer] dictation software. It may contain incorrect words, spelling, and punctuation that were not noted in review of the chart p rior to signing ED Disposition - Plan for ED Patient: Chief Complaint: Shortness of Breath Referrals: Hernan Murray MD [Primary Care Provider] -
--- NOTE | 2018-09-27 18:22 | ED.RN ---
PT TOOK AMIODARONE TODAY THAT IS NOT PRESCRIBED
[2018-09-27] MEDS: Ipratropium/Albuterol Sulfate 3 ML AMPUL.NEB INHALATION ×2 (18:27→20:33)
--- NOTE | 2018-09-27 18:27 | PCM.HP.STD ---
<Dc Barragan - Last Filed: 09/27/18 18:27> Problem List (1) PNA (pneumonia) Status: Acute (2) COPD (chronic obstructive pulmonary disease) Status: Chronic (3) Chronic atrial fibrillation Status: Chronic (4) COPD (chronic obstructive pulmonary disease) Status: Chronic (5) CAD (coronary artery disease) Status: Chronic (6) Left bundle branch block Status: Chronic (7) CKD (chronic kidney disease), stage II Status: Chronic (8) Cardiomyopathy Status: Chronic (9) Chronic respiratory failure Status: Chronic (10) Hypertension Status: Chronic (11) BPH (benign prostatic hypertrophy) Status: Chronic (12) HLD (hyperlipidemia) Status: Chronic (13) History of CVA (cerebrovascular accident) Status: Chronic Comment: 2013 (14) GERD (gastroesophageal reflux disease) Status: Chronic (15) ANIBAL (obstructive sleep apnea) Status: Chronic (16) Vesico-colic fistula Status: Chronic (17) Pulmonary hypertension Status: Chronic (18) Cor pulmonale Status: Chronic (19) Morbid obesity with BMI of 45.0-49.9, adult Status: Chronic History of Present Illness Date of Admission: 09/27/18 Chief Complaint: SOB The patient is a 63 year old M who was recently discharged from the hospital after being treated for COPD, CHF, and Presumed pneumococcal pneumonia. He was discharged home on omnicef and azithromycin, and 240 mg cardizem after he was insistent on increasing his cardiac medications because he believes that if his heart rate is in the 70s, that it is poorly controlled and makes him unable to breathe (we discussed this with his biological engineer and he was agreeable to increasing the cardizem at that time). He presents today saying that he went home and his breathing worsened because his heart rate is uncontrolled. He did not fill any of his medications after he left the hospital. Instead, he took a single dose of old doxycycline that he had at home, and today took 400 mg of amiodarone and 360 mg of cardizem without being directed by a physician. He also increased his home O2 to 8lpm. In the ER he states he is very SOB, however he is maintaining good saturations on his normal home O2 level which again is 4lpm. He has not had worsening of his LE, and has no CP. His white blood cell count has actually improved, which was likely elevated 2/2 high dose steroids on last admission. Throughout his last stay there are multiple instances of the patient being argumentative and noncompliant with his care, for example he threatened to go home and take doxy and amiodarone if we did not treat him how he wanted, and also repeatedly was insistent on being discharged because he was concerned about taking care of his cat. [] Past Medical History Past Medical History (Chronic Problems): Chronic Problems (Last Reviewed 09/24/18 @ 18:31 by Meliton Morel DO) COPD (chronic obstructive pulmonary disease) (Chronic) Chronic atrial fibrillation (Chronic) COPD (chronic obstructive pulmonary disease) (Chronic) CAD (coronary artery disease) (Chronic) Left bundle branch block (Chronic) CKD (chronic kidney disease), stage II (Chronic) Cardiomyopathy (Chronic) History of cardioversion (Chronic ~09/07/17) Atrial flutter (Chronic) Chronic respiratory failure (Chronic) Hypertension (Chronic) BPH (benign prostatic hypertrophy) (Chronic) HLD (hyperlipidemia) (Chronic) History of CVA (cerebrovascular accident) (Chronic) 2012 GERD (gastroesophageal reflux disease) (Chronic) Stasis dermatitis of both legs (Chronic) with hyperpigmentation ANIBAL (obstructive sleep apnea) (Chronic) Vesico-colic fistula (Chronic) Pulmonary hypertension (Chronic) Cor pulmonale (Chronic) Morbid obesity with BMI of 45.0-49.9, adult (Chronic) Medical History: Medical History (Last Reviewed 09/24/18 @ 18:31 by Meliton Morel DO) Healthcare-associated pneumonia (Acute) J18.9 Chronic atrial fibrillation (Chronic) I48.2 COPD (chronic obstructive pulmonary disease) (Chronic) J44.9 CAD (coronary artery disease) (Chronic) I25.10 Left bundle branch block (Chronic) I44.7 CKD (chronic kidney disease), stage II (Chronic) N18.2 Cardiomyopathy (Chronic) I42.9 History of cardioversion (Chronic) Onset Date: ~09/07/17 Z98.890 Atrial flutter (Chronic) I48.92 Hypertension (Chronic) I10 Scar of back (Chronic) L90.5 5 cm recurrent infected cystic lesion scar right lower medial back Former smoker (Chronic) Z87.891 quit 2013 BPH (benign prostatic hypertrophy) (Chronic) N40.0 HLD (hyperlipidemia) (Chronic) E78.5 History of CVA (cerebrovascular accident) (Chronic) Z86.73 2012 GERD (gastroesophageal reflux disease) (Chronic) K21.9 Stasis dermatitis of both legs (Chronic) I83.11, I83.12 with hyperpigmentation ANIBAL (obstructive sleep apnea) (Chronic) G47.33 Vesico-colic fistula (Chronic) N32.1 Pulmonary hypertension (Chronic) I27.2 Cor pulmonale (Chronic) I27.81 Morbid obesity with BMI of 45.0-49.9, adult (Chronic) E66.01, Z68.42 CVA (cerebral vascular accident) Onset Date: ~2012 I63.9 NSTEMI (non-ST elevated myocardial infarction) (Resolved) I21.4 Allergies cashew nut Allergy (Verified 09/27/18 15:58) Vomiting cortisone [Cortisone] Allergy (Verified 09/27/18 15:58) Itching CASHEW Adverse Reaction (Uncoded 09/27/18 15:58) Vomiting Home Medications: Ambulatory Orders Medication Instructions Recorded Fluticasone/Salmeterol [Advair 2 puff INHALATION DAILY 11/29/17 250-50 Diskus] Albuterol Inhaler [Ventolin Hfa] 1 - 2 puff INHALATION Q4H PRN PRN 04/09/18 Amlodipine [Norvasc] 10 mg PO QHS 04/09/18 Aspirin [Aspirin, Baby] 81 mg PO QHS 04/09/18 Atorvastatin Calcium [Lipitor] 40 mg PO QHS 04/09/18 Calcium (Elemental) [[place] 500] 500 mg PO DAILY@79904/09/18 Clopidogrel Bisulfate [Clopidogrel] 75 mg PO QHS 04/09/18 Ferrous Sulfate 325 mg PO DAILY@00 04/09/18 Furosemide [Lasix] 40 mg PO BID 04/09/18 Glucosamine Sulf/Chondroitin A 1 ea PO DAILY 04/09/18 [Glucosamine-Chondroitin Cap] Ipratropium/Albuterol Sulfate 3 ml INHALATION TID 04/09/18 [Duoneb] Losartan Potassium [Cozaar] 50 mg PO DAILY 04/09/18 Potassium Chloride [K-Dur] 10 meq PO DAILY #30 tab 04/17/18 umeclidinium 62.5 mcg/actuation 1 inh INHALATION QDAY #30 ea 09/02/18 blister powder for inhalation Guaifenesin [Mucinex] 800 mg PO BID PRN 09/23/18 Azithromycin 250 mg PO DAILY #3 tablet 09/26/18 Cefdinir [Omnicef [equiv]] 300 mg PO Q12H #6 capsule 09/26/18 Diltiazem CD [Cardizem CD] 240 mg PO DAILY #30 capsule 09/26/18 Prednisone 10 mg PO UD #30 tab 09/26/18 Surgical History: Surgical History (Last Reviewed 09/24/18 @ 18:31 by Meliton Morel DO) Hx of decompression of ulnar nerve (Resolved) Z98.890 Surgical History: - - Cyst removal lower back, ulnar relocation right elbow. Psychiatric History: No pertinent psych hx Lives: Alone Smoking Status: Former smoker Tobacco Use: Non-smoker Alcohol: None Drugs: None - *Family History Maternal Family History: Family History (This Medical Record has been edited. Action required.) Mother Cancer Brother Sudden cardiac Father Heart disease History Items: Cancer - Lung and brain cancer Paternal Family History: Family History (This Medical Record has been edited. Action required.) Mother Cancer Brother Sudden cardiac Father Heart disease History Items: Heart Disease - father of a cardiomyopathy Sibling Family History: Family History (This Medical Record has been edited. Action required.) Mother Cancer Brother Sudden cardiac Father Heart disease History Items: - - brother dropped at 60 drinking a beer Review of Systems Constitutional: Denies: Chills, Fever, Weight Change HEENT: Denies: Head Aches, Sinus Congestion, Sinus Drainage Cardiovascular: Denies: Chest Pain, Palpitations Respiratory: Reports: Cough, Shortness of Breath, Shortness of breath at rest, Shortness of breath upon exertion, Wheezing. Denies: Hemoptysis, Pleuritic Pain, Sputum production Gastrointestinal: Denies: Abdominal Pain, Nausea, Vomiting Genitourinary: Denies: Dysuria Musculoskeletal: Denies: Joint Pain, Joint Tenderness Skin: Denies: Rash, Wounds Neurological: Denies: Numbness, Tingling, Focal weakness Psychiatric: Denies: Anxiety, Depression, Homicidal Ideations, Suicidal Ideations Hematologic/ Lymphatic: Denies: Easy Bruising, Easy Bleeding VTE Information - Inpt Only VTE Present on Admission: No VTE Mechan Device Prophylaxis: None VTE Pharm Prophylaxis ordered?: Yes - Physical Exam General: Alert, Oriented x3, Cooperative HEENT: Atraumatic, PERRLA, EOMI, Normocephalic Neck: Supple, No JVD, Negative Carotid Bruits Lungs: Diminished, Rales, Wheezes Cardiovascular: No murmurs, Irregular Rate Abdomen: Bowel Sounds Present, Soft, Non Tender, Obese Extremities: Capillary Refill Less than 3 Seconds, Edema Skin: No rashes, No breakdown Musculoskeletal: No Tenderness to Palpation of Joints or Extremities Neurological: Cranial nerves II-XII grossly intact Psych/Mental Status: Anxious, Alert and oriented to time, place, person, mood and affect Vital Signs Temp Pulse Resp BP Pulse Ox 98 F 69 20 H 147/61 H 97 09/27/18 18:11 09/27/18 18:11 09/27/18 18:11 09/27/18 18:11 09/27/18 18:11 Oxygen Flow Rate (L/min) 4 Oxygen Delivery Method Nasal Cannula Weight: 390 lb 14.073 oz Body Mass Index (BMI) 48.8 Finger Stick Blood Glucose 120 Laboratory Tests Past 24 Hrs 09/27/18 09/27/18 09/27/18 16:20 16:20 16:20 WBC 15.0 H RBC 4.33 L Hgb 13.2 Hct 41.1 MCV 94.9 H MCH 30.5 MCHC 32.1 RDW 15.6 H RDW Differential 52.9 H Plt Count 218 MPV 9.6 Immature Gran % (Auto) 2.100 H Neut % (Auto) 88.9 H Lymph % (Auto) 5.5 L [place] % (Auto) 3.3 Eos % (Auto) 0.0 Baso % (Auto) 0.2 Absolute Neuts (auto) 13.3 H Absolute Lymphs (auto) 0.83 Total Counted Not Reportable Diff Path Review May foll Platelet Estimate ADEQUATE Anisocytosis RARE Macrocytosis RARE D-Dimer Quant (PE/DVT) 0.55 H* Sodium Potassium Chloride Carbon Dioxide Anion Gap BUN Creatinine Estim Creat Clear Calc Est GFR (MDRD) Af Amer Est GFR (MDRD) Non-Af BUN/Creatinine Ratio Glucose Calcium Troponin I B-Natriuretic Peptide 51.3 09/27/18 09/27/18 16:20 17:27 WBC RBC Hgb Hct MCV MCH MCHC RDW RDW Differential Plt Count MPV Immature Gran % (Auto) Neut % (Auto) Lymph % (Auto) [place] % (Auto) Eos % (Auto) Baso % (Auto) Absolute Neuts (auto) Absolute Lymphs (auto) Total Counted Diff Path Review Platelet Estimate Anisocytosis Macrocytosis D-Dimer Quant (PE/DVT) Sodium 142 Potassium 4.8 Chloride 105 Carbon Dioxide 28.0 Anion Gap 9 BUN 41 H Creatinine 1.50 H Estim Creat Clear Calc 58.68 Est GFR (MDRD) Af Amer 60 Est GFR (MDRD) Non-Af 50 L BUN/Creatinine Ratio 27.3 H Glucose 195 H Calcium 9.7 Troponin I 0.078 H B-Natriuretic Peptide Assessment/Plan All Active Problems (Last Updated 09/27/18 @ 19:31 by Nasrin Estrada MD) Streptococcal pneumonia (Acute) Hx of decompression of ulnar nerve (Resolved) Cellulitis of back [any part except buttock] (Resolved) NSTEMI (non-ST elevated myocardial infarction) (Resolved) Non-STEMI (non-ST elevated myocardial infarction) (Resolved) 1. Partially treated CAP - pt did not fill his scripts for abx or any medications at discharge. He will be placed on rocephin and azithromyin, aerosols, mucinex, IS and PEP therapy. Sputum at last admission showed normal resp jorje, and urine antigens were negative. He is afebrile and his WBC elevation is irrelevant as it went up after being treated with high dose steroids. He is not hypoxic, and has a nonproductive cough. There are rales on exam. He does however have an indeterminate troponin, although this has been elevated multiple times, and he also has refused cardiac workup so we should cycle this, and an elevated D dimer, so he would likely need a vq scan to evaluate for PE. Old Left bundle on EKG. He however is not tachy and without CP. 2. Chronic Afib - patient insists that his SOB is related to his heart rate being elevated even when it is only in the 70s. He self medicated at home with 360 mg Cardizem and 400 of amiodarone. Consult to cardiology. His focus on his heart rate and SOB may be more due to a component of anxiety. 3. Chronic Diastolic CHF, complicated by CM and pulm htn - patient without acute exacerbation - continue home lasix dose. He has not had any worsening of edema. BNP is normal. 4. COPD - did not fill prednisone taper. Will resume prednisone taper, continue duonebs. He has seen Dr. Tello in the past. 5. Chronic hypoxic respiratory failure - pt SOB at rest and exertion. He is maintening good sats at his home O2 level. 6. CKD III - trend 7. Hx CAD, pt of Dr. Oro. 8. HTN - stable 9. ANIBAL - pt refuses to use CPAP/Bipap at home stating that the sleep study was wrong. DVT ppx: heparin DC planning: pt went home and failed, did not fill his medications, he will need PTOT, and if he returns home would benefit from the [facility]. He refused home health care services at last admission. This patient was seen by Dc Barragan PA-C under the supervision of Dr. Estrada. <Nasrin Estrada E - Last Filed: 09/27/18 19:33> History of Present Illness The patient is a 63 year old M [] Past Medical History Medical History: Medical History (Last Reviewed 09/24/18 @ 18:31 by Meliton Morel DO) Chronic atrial fibrillation (Chronic) I48.2 COPD (chronic obstructive pulmonary disease) (Chronic) J44.9 CAD (coronary artery disease) (Chronic) I25.10 Left bundle branch block (Chronic) I44.7 CKD (chronic kidney disease), stage II (Chronic) N18.2 Cardiomyopathy (Chronic) I42.9 History of cardioversion (Chronic) Onset Date: ~09/07/17 Z98.890 Atrial flutter (Chronic) I48.92 Hypertension (Chronic) I10 BPH (benign prostatic hypertrophy) (Chronic) N40.0 HLD (hyperlipidemia) (Chronic) E78.5 History of CVA (cerebrovascular accident) (Chronic) Z86.73 2012 GERD (gastroesophageal reflux disease) (Chronic) K21.9 Stasis dermatitis of both legs (Chronic) I83.11, I83.12 with hyperpigmentation ANIBAL (obstructive sleep apnea) (Chronic) G47.33 Vesico-colic fistula (Chronic) N32.1 Pulmonary hypertension (Chronic) I27.2 Cor pulmonale (Chronic) I27.81 Morbid obesity with BMI of 45.0-49.9, adult (Chronic) E66.01, Z68.42 CVA (cerebral vascular accident) Onset Date: ~2012 I63.9 NSTEMI (non-ST elevated myocardial infarction) (Resolved) I21.4 Allergies cashew nut Allergy (Verified 09/27/18 15:58) Vomiting cortisone [Cortisone] Allergy (Verified 09/27/18 19:16) Itching-ONLY TO JOINT INJECTABLE KIND Pt states ok to take prednisone. CASHEW Adverse Reaction (Uncoded 09/27/18 15:58) Vomiting Surgical History: Surgical History (Last Reviewed 09/24/18 @ 18:31 by Meliton Morel DO) Hx of decompression of ulnar nerve (Resolved) Z98.890 - *Family History Maternal Family History: Family History (This Medical Record has been edited. Action required.) Mother Cancer Brother Sudden cardiac Father Heart disease Paternal Family History: Family History (This Medical Record has been edited. Action required.) Mother Cancer Brother Sudden cardiac Father Heart disease Sibling Family History: Family History (This Medical Record has been edited. Action required.) Mother Cancer Brother Sudden cardiac Father Heart disease - Physical Exam Vital Signs Temp Pulse Resp BP Pulse Ox 98 F 71 18 147/61 H 97 09/27/18 18:11 09/27/18 18:27 09/27/18 18:27 09/27/18 18:11 09/27/18 18:11 Oxygen Flow Rate (L/min) 4 Oxygen Delivery Method Nasal Cannula Weight: 390 lb 14.073 oz Body Mass Index (BMI) 48.8 Finger Stick Blood Glucose 120 Laboratory Tests Past 24 Hrs 09/27/18 09/27/18 09/27/18 16:20 16:20 16:20 WBC 15.0 H RBC 4.33 L Hgb 13.2 Hct 41.1 MCV 94.9 H MCH 30.5 MCHC 32.1 RDW 15.6 H RDW Differential 52.9 H Plt Count 218 MPV 9.6 Immature Gran % (Auto) 2.100 H Neut % (Auto) 88.9 H Lymph % (Auto) 5.5 L [place] % (Auto) 3.3 Eos % (Auto) 0.0 Baso % (Auto) 0.2 Absolute Neuts (auto) 13.3 H Absolute Lymphs (auto) 0.83 Total Counted Not Reportable Diff Path Review May foll Platelet Estimate ADEQUATE Anisocytosis RARE Macrocytosis RARE D-Dimer Quant (PE/DVT) 0.55 H* Sodium Potassium Chloride Carbon Dioxide Anion Gap BUN Creatinine Estim Creat Clear Calc Est GFR (MDRD) Af Amer Est GFR (MDRD) Non-Af BUN/Creatinine Ratio Glucose Calcium Troponin I B-Natriuretic Peptide 51.3 09/27/18 09/27/18 16:20 17:27 WBC RBC Hgb Hct MCV MCH MCHC RDW RDW Differential Plt Count MPV Immature Gran % (Auto) Neut % (Auto) Lymph % (Auto) [place] % (Auto) Eos % (Auto) Baso % (Auto) Absolute Neuts (auto) Absolute Lymphs (auto) Total Counted Diff Path Review Platelet Estimate Anisocytosis Macrocytosis D-Dimer Quant (PE/DVT) Sodium 142 Potassium 4.8 Chloride 105 Carbon Dioxide 28.0 Anion Gap 9 BUN 41 H Creatinine 1.50 H Estim Creat Clear Calc 58.68 Est GFR (MDRD) Af Amer 60 Est GFR (MDRD) Non-Af 50 L BUN/Creatinine Ratio 27.3 H Glucose 195 H Calcium 9.7 Troponin I 0.078 H B-Natriuretic Peptide Assessment/Plan Hospitalist note: I am seeing this patient in conjunction with Dc Barragan. I independently seen and examined the patient. History and physical, laboratory data and imaging studies reviewed and I agree with above treatment and admission plan. Patient was discharged from the hospital yesterday after admission for pneumonia, COPD and CHF. He returned back because of worsening shortness of breath and he attributed his complaints to his heart rate being uncontrolled. Obviously, patient did not fill any of his medications after he left the hospital and he has been using his old doxycycline that was at home and also agreed to 400 mg of amiodarone and 360 mg of Cardizem at home without physician's directions to control his heart rate which was actually under control. He reported mild dry cough, no sputum production. No fever or chills. In the emergency department, patient was afebrile, blood pressure and heart rate are stable, pulse ox was 97% on 4 L. At home, he has been on the same 4 L of oxygen. Chest x-ray revealed right lower lobe infiltrate which improved compared to previous study. Routine blood work is remarkable for leukocytosis but patient was discharged on prednisone and his creatinine is 1.50 which is chronic. His troponin was 0.078 and it has been chronically borderline elevated. Patient denies any chest pain. His EKG revealed sinus rhythm with left bundle branch block which is chronic. - Physical Exam General: Alert, Oriented x3, Cooperative, No apparent distress. HEENT: Atraumatic, PERRLA, EOMI. Neck: Supple, No JVD, Negative Carotid Bruits, Trachea Midline, Thyroid Normal. Lungs: Decreased breath sounds bilateral, right basal crackles, rhonchi bilaterally, moderately short of breath, No wheeze. Cardiovascular: Regular rate, Regular Rhythm, Normal S1, Normal S2, PMI Normal. Abdomen: Bowel Sounds Present, Soft, Non Tender, Non-Distended, No Hepato-splenomegaly, morbidly obese. Extremities: No clubbing, No cyanosis, ++ edema Skin: No rashes, No breakdown Neurological: Cranial nerves are intact, neuro grossly intact Assessment and plan: #1 probable partially treated committee acquired pneumonia: Patient is noncompliant, did not fill any of his prescriptions that he was sent with. We will start back on IV Rocephin and Zithromax, bronchodilators, chest physiotherapy, steroids as above, continue oxygen by nasal cannula at 4 L. #2 chronic atrial fibrillation: Rate is controlled, blood pressure stable. Patient thinks that his shortness of breath is due to his heart rate being above 50-60 although he has been in sinus rhythm. He self medicate at home with 360 mg of Cardizem and 400 mg of amiodarone. Plan to continue correctly prescribed home doses of Cardizem, cardiology consult. #3 indeterminate troponin: This is chronic, EKG revealed chronic LBBB. Patient denied chest pain. I do not think that we need to do any further cardiac workup at this time. #4 other chronic medical problems: Stable, continue current medications as above. This note was generated with [employer] dictation software. It may contain incorrect words, spelling, and punctuation that were not noted in checking the note before signing. Code Visit Inpatient E&M: 84854 Init Hosp L2
[2018-09-27] MEDS: Ceftriaxone 1 GM/50 ML BAG IV (18:52)
--- NOTE | 2018-09-27 19:10 | CM.ED ---
SOCIAL WORK NOTE: THIS WORKER RECEIVED ORDER FOR MENTAL HEALTH FOLLOW UP. CASE DISCUSSED WITH DR. LAM. PT HAD VERBALIZED SUICIDAL IDEATION WITH NURSING. DR. LAM IN WITH PT. PT DENIES SI TO DOCTOR. PT BEING WORKED UP AT THIS TIME.
[2018-09-27] MEDS: Atorvastatin Calcium 40 MG Tablet PO (21:09)
[2018-09-27] MEDS: amLODIPine 10 MG Tablet PO (21:09)
[2018-09-27] MEDS: Clopidogrel Bisulfate 75 MG Tablet PO (21:10)
[2018-09-27] MEDS: Aspirin 81 MG TAB.CHEW PO (21:10)
--- NOTE | 2018-09-27 21:49 | NURSING ---
pt refused incentive spirometer stating he has one at home and it does not do a darn thing; pt also refused heparin sc stating he does not want bruises for a med that does nothing
--- NOTE | 2018-09-27 22:00 | NURSING ---
discussed with MD and pharmacy zithromax infiltration of LAC PIV. extremity elevated and warm compress applied. PIV discontinued. no other actions to take at this time.
[2018-09-27] MEDS: HYDROcodone Bitartrate/Apap 5/325 Tablet PO (22:52)
[2018-09-27] MEDS: Azithromycin 250 MG Tablet 500 MG PO (23:28)
[2018-09-28] VITALS (8 sets, daily range): BP systolic 151–166; BP diastolic 68–73; PULSE 57–88; RESP 19–22; TEMP 36.5–36.7; O2SAT 95–98
[2018-09-28 02:42] LABS: Absolute Lymphocyte Count 0.71 X10^3/ul (0.83-4.51); Absolute Neutrophil Count 12.2 X10^3/uL (2.0-7.7); Basophil# 0.04 X10^3/uL; Basophil% 0.3 % (0-1); Eosinophil# 0.01 X10^3/uL; Eosinophils% 0.1 % (0-5); Hematocrit 40.3 % (40-54); Lymphocyte # 0.71 X10^3/ul (4.0); Lymphocyte % 4.7 % (19-41); Mean Corp Hgb Conc 32.3 g/gl (32-36); Mean Corpuscular Hgb 30.6 pg (27.0-32.0); Mean Corpuscular Volume 94.8 fL (80-94); Mean Platelet Vol. 9.6 fl (6.2-12.0); Monocyte% 11.9 % (0-10); Neutrophil # 12.15 X10^3/uL (2.7-7.7); Neutrophil % 80.1 % (47-70); Platelet Count 224 K/mm3 (150-450); RBC Distribution Width CV 15.5 % (11.6-14.6); RBC Distribution Width SD 52.5 fl (35.1-43.9); Red Blood Count 4.25 M/mm3 (4.6-6.2); White Blood Count 15.2 K/mm3 (4.4-11.0)
[2018-09-28 02:43] LABS: Differential Indicated SCAN CRITERIA MET; POSITIVE COUNT YES; POSITIVE DIFFERENTIAL YES; POSITIVE MORPHOLOGY YES
[2018-09-28 03:19] LABS: Anion Gap 9 (5-15); BUN 41 mg/dL (7-18); BUN/Creat Ratio 30.1 RATIO (10-20); Calcium,Total 9.2 mg/dL (8.5-10.1); Chloride 106 mmol/L (98-107); Creatinine, Serum 1.36 mg/dL (0.70-1.30); EST Glomerular Filtration Rate 56 mL/min (>60); Est Glom Filt Rate - Afr Amer 68 mL/min (>60); Estimated Creatinine Clearance 62.96 ml/min; Glucose 161 mg/dL (74-106); Potassium 4.5 mmol/L (3.5-5.1); Sodium Level 140 mmol/L (136-145)
[2018-09-28] MEDS: Ipratropium/Albuterol Sulfate 3 ML AMPUL.NEB INHALATION (07:11)
--- NOTE | 2018-09-28 09:02 | PCM.CONS.C ---
Reason for Consult Date of Consultation: 09/28/18 Reason for Consultation: Evaluation of heart rate History of Present Illness: NIRALI ACHARYA, is a 62 M who presents to the emergency room yesterday saying that he was feeling short of breath because his heart rate was elevated. He insisted that his medication be changed because of his heart rate. After discussion with the emergency room physician and the security and compliance analyst it was decided to admit him for reasons that are not entirely clear. A cardiology consult was put in and I was asked to see the patient this morning. He denies any chest pain or shortness of breath over and above the usual. He is a gentleman with a history of atrial fibrillation flutter, obstructive sleep apnea, hyperlipidemia, hypertension, and obstructive lung disease. He returns for routine follow-up visit. He denies any chest pain or shortness of breath or paroxysmal nocturnal dyspnea. He does have some shortness of breath with exertion. He has had no dizziness or diaphoresis no near syncope or syncope. He says that he feels he is still in sinus rhythm. His physical exam today demonstrates clear lung gutierrez regular rate and rhythm and 1+ pitting edema. You do remember that his previous echocardiogram had demonstrated preserved ejection fraction with segmental wall motion abnormality. However he did not want any further invasive evaluation of the above. He was recently admitted to the hospital with pneumonia and is currently undergoing treatment for that. He has had no further paroxysms of atrial fibrillation. As you know he is very insistent that when his heart rate is over 70 he feels short of breath. He thinks this is the primary reason why he is short of breath. [] Past Medical History Allergies/Adverse Reactions: Allergies cashew nut Allergy (Verified 09/27/18 15:58) Vomiting cortisone [Cortisone] Allergy (Verified 09/27/18 19:16) Itching-ONLY TO JOINT INJECTABLE KIND Pt states ok to take prednisone. CASHEW Adverse Reaction (Uncoded 09/27/18 15:58) Vomiting Home Medications: Ambulatory Orders Medication Instructions Recorded Fluticasone/Salmeterol [Advair 2 puff INHALATION DAILY 11/29/17 250-50 Diskus] Albuterol Inhaler [Ventolin Hfa] 1 - 2 puff INHALATION Q4H PRN PRN 04/09/18 Amlodipine [Norvasc] 10 mg PO QHS 04/09/18 Aspirin [Aspirin, Baby] 81 mg PO QHS 04/09/18 Atorvastatin Calcium [Lipitor] 40 mg PO QHS 04/09/18 Calcium (Elemental) [[place] 500] 500 mg PO DAILY@0800 04/09/18 Clopidogrel Bisulfate [Clopidogrel] 75 mg PO QHS 04/09/18 Ferrous Sulfate 325 mg PO DAILY@0800 04/09/18 Furosemide [Lasix] 40 mg PO BID 04/09/18 Glucosamine Sulf/Chondroitin A 1 ea PO DAILY 04/09/18 [Glucosamine-Chondroitin Cap] Ipratropium/Albuterol Sulfate 3 ml INHALATION TID 04/09/18 [Duoneb] Losartan Potassium [Cozaar] 50 mg PO DAILY 04/09/18 Potassium Chloride [K-Dur] 10 meq PO DAILY #30 tab 04/17/18 umeclidinium 62.5 mcg/actuation 1 inh INHALATION QDAY #30 ea 09/02/18 blister powder for inhalation Guaifenesin [Mucinex] 800 mg PO BID PRN 09/23/18 Azithromycin 250 mg PO DAILY #3 tablet 09/26/18 Cefdinir [Omnicef [equiv]] 300 mg PO Q12H #6 capsule 09/26/18 Diltiazem CD [Cardizem CD] 240 mg PO DAILY #30 capsule 09/26/18 Prednisone 10 mg PO UD #30 tab 09/26/18 Past Medical History (Chronic Problems): Chronic Problems (Last Updated 09/27/18 @ 19:31 by Nasrin Estrada MD) COPD (chronic obstructive pulmonary disease) (Chronic) Chronic atrial fibrillation (Chronic) COPD (chronic obstructive pulmonary disease) (Chronic) CAD (coronary artery disease) (Chronic) Left bundle branch block (Chronic) CKD (chronic kidney disease), stage II (Chronic) Cardiomyopathy (Chronic) History of cardioversion (Chronic ~09/07/17) Atrial flutter (Chronic) Chronic respiratory failure (Chronic) Hypertension (Chronic) BPH (benign prostatic hypertrophy) (Chronic) HLD (hyperlipidemia) (Chronic) History of CVA (cerebrovascular accident) (Chronic) 2012 GERD (gastroesophageal reflux disease) (Chronic) Stasis dermatitis of both legs (Chronic) with hyperpigmentation ANIBAL (obstructive sleep apnea) (Chronic) Vesico-colic fistula (Chronic) Pulmonary hypertension (Chronic) Cor pulmonale (Chronic) Morbid obesity with BMI of 45.0-49.9, adult (Chronic) Surgical History: - - Cyst removal lower back, ulnar relocation right elbow. Psychiatric History: No pertinent psych hx - *Family History Maternal Family History: Family History (This Medical Record has been edited. Action required.) Mother Cancer Brother Sudden cardiac Father Heart disease History Items: Cancer - Lung and brain cancer Paternal Family History: Family History (This Medical Record has been edited. Action required.) Mother Cancer Brother Sudden cardiac Father Heart disease History Items: Heart Disease - father of a cardiomyopathy Sibling Family History: Family History (This Medical Record has been edited. Action required.) Mother Cancer Brother Sudden cardiac Father Heart disease History Items: - - brother dropped at 60 drinking a beer Lives: Alone Smoking Status: Former smoker Tobacco Use: Cigarettes Alcohol: None Drugs: None Review of Systems - Review of Systems General: Denies: Fever, Night Sweats, Fatigue HEENT: Denies: Vision Change Cardiovascular: Reports: Shortness of Breath, Shortness of Breath at Rest, Shortness of Breath with Exertion. Denies: Chest Discomfort, Orthopnea, PND, Peripheral Edema, Palpitations, Lightheadedness, Dizziness, Near Syncope, Syncope Respiratory: Denies: Cough, Sputum Production, Hemoptysis Gastrointestinal: Denies: Hematemesis, Hematochezia, Melena Genitourinary: Denies: Dysuria, Hematuria Skin: Denies: Rash Neurological: Denies: Dizziness Psychiatric: Denies: Anxiety Endocrine: Denies: Unexplained Weight Loss Hematologic/ Lymphatic: Denies: Anemia Subjectve: Patient seen and evaluated. Objective: Vital Signs Temp Pulse Resp BP Pulse Ox 97.7 F L 88 22 H 151/68 H 98 09/28/18 02:00 09/28/18 07:11 09/28/18 07:11 09/28/18 02:00 09/28/18 07:11 Oxygen Flow Rate (L/min) 5 Oxygen Delivery Method Nasal Cannula Weight: 385 lb 2 oz Body Mass Index (BMI) 49.4 Finger Stick Blood Glucose 120 Intake and Output for Last 24 Hours 09/26/18 09/27/18 09/28/18 23:59 23:59 23:59 Intake Total 780 / 780 Balance 780 / 780 General: Awake, Alert, Oriented x 3 HEENT: PERRL, EOMI, Sclera Non Icteric Neck: Supple, Good ROM, No Lymph Node Enlargement Lungs: Diminished Moody Bases Cardiovascular: Regular Rhythm, Normal S1, Normal S2, No Murmurs, No Rubs, No Gallops Vascular: No Carotid Bruits, Normal Femoral Pulses, Normal Radial Pulses, Normal Dorsalis Pedal Pulse, Normal Posterior Tibial Pulses Abdomen: Bowel Sounds Present, Soft, Non Tender, No HSM, No Organomegaly Extremities: No Cyanosis, No Clubbing, No edema Musculoskeletal: No Erythema Lymphatic: No Lymph Node Enlargement Neurological: No Focal Motor or Sensory Deficit Psych/Mental Status: Appropriate 09/27/18 16:20: WBC 15.0 H, RBC 4.33 L, Hgb 13.2, Hct 41.1, MCV 94.9 H, MCH 30.5, MCHC 32.1, RDW 15.6 H, RDW Differential 52.9 H, Plt Count 218, MPV 9.6, Immature Gran % (Auto) 2.100 H, Neut % (Auto) 88.9 H, Lymph % (Auto) 5.5 L, Hooker % (Auto) 3.3, Eos % (Auto) 0.0, Baso % (Auto) 0.2, Absolute Neuts (auto) 13.3 H, Total Counted Not Reportable 09/27/18 16:20: D-Dimer Quant (PE/DVT) 0.55 H* 09/27/18 16:20: B-Natriuretic Peptide 51.3 09/27/18 16:20: Troponin I 0.078 H 09/27/18 17:27: Sodium 142, Potassium 4.8, Chloride 105, Carbon Dioxide 28.0, Anion Gap 9, BUN 41 H, Creatinine 1.50 H, Est GFR (MDRD) Af Amer 60, Est GFR (MDRD) Non-Af 50 L, BUN/Creatinine Ratio 27.3 H, Glucose 195 H, Calcium 9.7 09/27/18 20:59: Troponin I 0.061 H 09/27/18 23:14: Troponin I 0.061 H 09/28/18 02:25: WBC 15.2 H, RBC 4.25 L, Hgb 13.0, Hct 40.3, MCV 94.8 H, MCH 30.6, MCHC 32.3, RDW 15.5 H, RDW Differential 52.5 H, Plt Count 224, MPV 9.6, Immature Gran % (Auto) 2.900 H, Neut % (Auto) 80.1 H, Lymph % (Auto) 4.7 L, Hooker % (Auto) 11.9 H, Eos % (Auto) 0.1, Baso % (Auto) 0.3, Absolute Neuts (auto) 12.2 H, Total Counted Not Reportable 09/28/18 02:25: Sodium 140, Potassium 4.5, Chloride 106, Carbon Dioxide 25.0, Anion Gap 9, BUN 41 H, Creatinine 1.36 H, Est GFR (MDRD) Af Amer 68, Est GFR (MDRD) Non-Af 56 L, BUN/Creatinine Ratio 30.1 H, Glucose 161 H, Calcium 9.2 09/28/18 02:25: Troponin I 0.062 H Rhythm: EKG: Normal sinus rhythm with a left bundle branch block ECHO: Stress Test: Cardiac Cath: PCI: CT Surgery: Holter monitor: EPS: PPM: CXR: Chest CT Scan: Assessment/Plan 1. Shortness of breath The etiology of the above is likely multifactorial however the patient incorrectly thinks that it is because his high heart rate of 70 bpm is the one causing this. He does have a history of obesity, obstructive lung disease, recent pneumonia and paroxysmal atrial fibrillation. His ejection fraction is noted to be normal based on his last echocardiogram. My recommendation is for him to continue to treat the underlying cause. 2. Paroxysmal atrial fibrillation Is maintaining sinus rhythm at this time. The plan will be for him to continue Cardizem 240 milligrams a day Toprol 50 mg a day 3. Mildly abnormal cardiac enzymes He likely has underlying coronary artery disease but he does not want to have a cardiac catheterization. He has been insistent on this on multiple occasions. Recommendation would continue to manage him aggressively with medical therapy. 4. Hypertension His blood pressure appears to be under good control on multiple agents including amlodipine, Cardizem, and losartan as well as beta-krish. I had a long discussion with him in the presence of the physician per diem physical therapist assistant Dc Barragan as well as the nurse Drea and explained to him that his high heart rate of 70 is not the reason why he is short of breath. I did explain to him the multiple factors involved in this and why his reasoning is not entirely correct. Underlying cause of his shortness of breath including his obesity, obstructive lung disease, recent pneumonia all need to be treated and for him not to focus on his heart rate of 70 which is normal. He did reluctantly expressed understanding. Thank you for allowing me to participate in the care of your patient. Please don't hesitate to call if any issues arise
--- NOTE | 2018-09-28 09:06 | CON.PCM_ITS ---
Reason for Consult Date of Consultation: 09/28/18 Reason for Consultation: Evaluation of heart rate History of Present Illness: NIRALI ACHARYA, is a 62 M who presents to the emergency room yesterday saying that he was feeling short of breath because his heart rate was elevated. He insisted that his medication be changed because of his heart rate. After discussion with the emergency room physician and the binder cutter it was decided to admit him for reasons that are not entirely clear. A cardiology consult was put in and I was asked to see the patient this morning. He denies any chest pain or shortness of breath over and above the usual. He is a gentleman with a history of atrial fibrillation flutter, obstructive sleep apnea, hyperlipidemia, hypertension, and obstructive lung disease. He returns for routine follow-up visit. He denies any chest pain or shortness of breath or paroxysmal nocturnal dyspnea. He does have some shortness of breath with exertion. He has had no dizziness or diaphoresis no near syncope or syncope. He says that he feels he is still in sinus rhythm. His physical exam today demonstrates clear lung gutierrez regular rate and rhythm and 1+ pitting edema. You do remember that his previous echocardiogram had demonstrated preserved ejection fraction with segmental wall motion abnormality. However he did not want any further invasive evaluation of the above. He was recently admitted to the hospital with pneumonia and is currently undergoing treatment for that. He has had no further paroxysms of atrial fibrillation. As you know he is very insistent that when his heart rate is over 70 he feels short of breath. He thinks this is the primary reason why he is short of breath. [] Past Medical History Allergies/Adverse Reactions: Allergies cashew nut Allergy (Verified 09/27/18 15:58) Vomiting cortisone [Cortisone] Allergy (Verified 09/27/18 19:16) Itching-ONLY TO JOINT INJECTABLE KIND Pt states ok to take prednisone. CASHEW Adverse Reaction (Uncoded 09/27/18 15:58) Vomiting Home Medications: Ambulatory Orders Medication Instructions Recorded Fluticasone/Salmeterol [Advair 2 puff INHALATION DAILY 11/29/17 250-50 Diskus] Albuterol Inhaler [Ventolin Hfa] 1 - 2 puff INHALATION Q4H PRN PRN 04/09/18 Amlodipine [Norvasc] 10 mg PO QHS 04/09/18 Aspirin [Aspirin, Baby] 81 mg PO QHS 04/09/18 Atorvastatin Calcium [Lipitor] 40 mg PO QHS 04/09/18 Calcium (Elemental) [[place] 500] 500 mg PO DAILY@0800 04/09/18 Clopidogrel Bisulfate [Clopidogrel] 75 mg PO QHS 04/09/18 Ferrous Sulfate 325 mg PO DAILY@0800 04/09/18 Furosemide [Lasix] 40 mg PO BID 04/09/18 Glucosamine Sulf/Chondroitin A 1 ea PO DAILY 04/09/18 [Glucosamine-Chondroitin Cap] Ipratropium/Albuterol Sulfate 3 ml INHALATION TID 04/09/18 [Duoneb] Losartan Potassium [Cozaar] 50 mg PO DAILY 04/09/18 Potassium Chloride [K-Dur] 10 meq PO DAILY #30 tab 04/17/18 umeclidinium 62.5 mcg/actuation 1 inh INHALATION QDAY #30 ea 09/02/18 blister powder for inhalation Guaifenesin [Mucinex] 800 mg PO BID PRN 09/23/18 Azithromycin 250 mg PO DAILY #3 tablet 09/26/18 Cefdinir [Omnicef [equiv]] 300 mg PO Q12H #6 capsule 09/26/18 Diltiazem CD [Cardizem CD] 240 mg PO DAILY #30 capsule 09/26/18 Prednisone 10 mg PO UD #30 tab 09/26/18 Past Medical History (Chronic Problems): Chronic Problems (Last Updated 09/27/18 @ 19:31 by Nasrin Estrada MD) COPD (chronic obstructive pulmonary disease) (Chronic) Chronic atrial fibrillation (Chronic) COPD (chronic obstructive pulmonary disease) (Chronic) CAD (coronary artery disease) (Chronic) Left bundle branch block (Chronic) CKD (chronic kidney disease), stage II (Chronic) Cardiomyopathy (Chronic) History of cardioversion (Chronic ~09/07/17) Atrial flutter (Chronic) Chronic respiratory failure (Chronic) Hypertension (Chronic) BPH (benign prostatic hypertrophy) (Chronic) HLD (hyperlipidemia) (Chronic) History of CVA (cerebrovascular accident) (Chronic) 2012 GERD (gastroesophageal reflux disease) (Chronic) Stasis dermatitis of both legs (Chronic) with hyperpigmentation ANIBAL (obstructive sleep apnea) (Chronic) Vesico-colic fistula (Chronic) Pulmonary hypertension (Chronic) Cor pulmonale (Chronic) Morbid obesity with BMI of 45.0-49.9, adult (Chronic) Surgical History: - - Cyst removal lower back, ulnar relocation right elbow. Psychiatric History: No pertinent psych hx - *Family History Maternal Family History: Family History (This Medical Record has been edited. Action required.) Mother Cancer Brother Sudden cardiac Father Heart disease History Items: Cancer - Lung and brain cancer Paternal Family History: Family History (This Medical Record has been edited. Action required.) Mother Cancer Brother Sudden cardiac Father Heart disease History Items: Heart Disease - father of a cardiomyopathy Sibling Family History: Family History (This Medical Record has been edited. Action required.) Mother Cancer Brother Sudden cardiac Father Heart disease History Items: - - brother dropped at 60 drinking a beer Lives: Alone Smoking Status: Former smoker Tobacco Use: Cigarettes Alcohol: None Drugs: None Review of Systems - Review of Systems General: Denies: Fever, Night Sweats, Fatigue HEENT: Denies: Vision Change Cardiovascular: Reports: Shortness of Breath, Shortness of Breath at Rest, Shortness of Breath with Exertion. Denies: Chest Discomfort, Orthopnea, PND, Peripheral Edema, Palpitations, Lightheadedness, Dizziness, Near Syncope, Syncope Respiratory: Denies: Cough, Sputum Production, Hemoptysis Gastrointestinal: Denies: Hematemesis, Hematochezia, Melena Genitourinary: Denies: Dysuria, Hematuria Skin: Denies: Rash Neurological: Denies: Dizziness Psychiatric: Denies: Anxiety Endocrine: Denies: Unexplained Weight Loss Hematologic/ Lymphatic: Denies: Anemia Subjectve: Patient seen and evaluated. Objective: Vital Signs Temp Pulse Resp BP Pulse Ox 97.7 F L 88 22 H 151/68 H 98 09/28/18 02:00 09/28/18 07:11 09/28/18 07:11 09/28/18 02:00 09/28/18 07:11 Oxygen Flow Rate (L/min) 5 Oxygen Delivery Method Nasal Cannula Weight: 385 lb 2 oz Body Mass Index (BMI) 49.4 Finger Stick Blood Glucose 120 Intake and Output for Last 24 Hours 09/26/18 09/27/18 09/28/18 23:59 23:59 23:59 Intake Total 780 / 780 Balance 780 / 780 General: Awake, Alert, Oriented x 3 HEENT: PERRL, EOMI, Sclera Non Icteric Neck: Supple, Good ROM, No Lymph Node Enlargement Lungs: Diminished Moody Bases Cardiovascular: Regular Rhythm, Normal S1, Normal S2, No Murmurs, No Rubs, No Gallops Vascular: No Carotid Bruits, Normal Femoral Pulses, Normal Radial Pulses, Normal Dorsalis Pedal Pulse, Normal Posterior Tibial Pulses Abdomen: Bowel Sounds Present, Soft, Non Tender, No HSM, No Organomegaly Extremities: No Cyanosis, No Clubbing, No edema Musculoskeletal: No Erythema Lymphatic: No Lymph Node Enlargement Neurological: No Focal Motor or Sensory Deficit Psych/Mental Status: Appropriate 09/27/18 16:20: WBC 15.0 H, RBC 4.33 L, Hgb 13.2, Hct 41.1, MCV 94.9 H, MCH 30.5, MCHC 32.1, RDW 15.6 H, RDW Differential 52.9 H, Plt Count 218, MPV 9.6, Immature Gran % (Auto) 2.100 H, Neut % (Auto) 88.9 H, Lymph % (Auto) 5.5 L, Christian % (Auto) 3.3, Eos % (Auto) 0.0, Baso % (Auto) 0.2, Absolute Neuts (auto) 13.3 H, Total Counted Not Reportable 09/27/18 16:20: D-Dimer Quant (PE/DVT) 0.55 H* 09/27/18 16:20: B-Natriuretic Peptide 51.3 09/27/18 16:20: Troponin I 0.078 H 09/27/18 17:27: Sodium 142, Potassium 4.8, Chloride 105, Carbon Dioxide 28.0, Anion Gap 9, BUN 41 H, Creatinine 1.50 H, Est GFR (MDRD) Af Amer 60, Est GFR (MDRD) Non-Af 50 L, BUN/Creatinine Ratio 27.3 H, Glucose 195 H, Calcium 9.7 09/27/18 20:59: Troponin I 0.061 H 09/27/18 23:14: Troponin I 0.061 H 09/28/18 02:25: WBC 15.2 H, RBC 4.25 L, Hgb 13.0, Hct 40.3, MCV 94.8 H, MCH 30.6, MCHC 32.3, RDW 15.5 H, RDW Differential 52.5 H, Plt Count 224, MPV 9.6, Immature Gran % (Auto) 2.900 H, Neut % (Auto) 80.1 H, Lymph % (Auto) 4.7 L, Christian % (Auto) 11.9 H, Eos % (Auto) 0.1, Baso % (Auto) 0.3, Absolute Neuts (auto) 12.2 H, Total Counted Not Reportable 09/28/18 02:25: Sodium 140, Potassium 4.5, Chloride 106, Carbon Dioxide 25.0, Anion Gap 9, BUN 41 H, Creatinine 1.36 H, Est GFR (MDRD) Af Amer 68, Est GFR (MDRD) Non-Af 56 L, BUN/Creatinine Ratio 30.1 H, Glucose 161 H, Calcium 9.2 09/28/18 02:25: Troponin I 0.062 H Rhythm: EKG: Normal sinus rhythm with a left bundle branch block ECHO: Stress Test: Cardiac Cath: PCI: CT Surgery: Holter monitor: EPS: PPM: CXR: Chest CT Scan: Assessment/Plan 1. Shortness of breath * The etiology of the above is likely multifactorial however the patient incorrectly thinks that it is because his high heart rate of 70 bpm is the one causing this. He does have a history of obesity, obstructive lung disease, recent pneumonia and paroxysmal atrial fibrillation. His ejection fraction is noted to be normal based on his last echocardiogram. * My recommendation is for him to continue to treat the underlying cause. * 2. Paroxysmal atrial fibrillation * Is maintaining sinus rhythm at this time. The plan will be for him to continue Cardizem 240 milligrams a day * Toprol 50 mg a day * * 3. Mildly abnormal cardiac enzymes * He likely has underlying coronary artery disease but he does not want to have a cardiac catheterization. He has been insistent on this on multiple occasions. Recommendation would continue to manage him aggressively with medical therapy. * 4. Hypertension * His blood pressure appears to be under good control on multiple agents including amlodipine, Cardizem, and losartan as well as beta-krish. * * I had a long discussion with him in the presence of the physician carpenter's assistant Dc Barragan as well as the nurse Drea and explained to him that his high heart rate of 70 is not the reason why he is short of breath. I did explain to him the multiple factors involved in this and why his reasoning is not entirely correct. Underlying cause of his shortness of breath including his obesity, obstructive lung disease, recent pneumonia all need to be treated and for him not to focus on his heart rate of 70 which is normal. He did reluctantly expressed understanding. * * Thank you for allowing me to participate in the care of your patient. Please don't hesitate to call if any issues arise
[2018-09-28] MEDS: Losartan Potassium 50 MG Tablet PO (11:23)
[2018-09-28] MEDS: dilTIAZem CD 240 MG Capsule PO (11:23)
[2018-09-28] MEDS: Ferrous Sulfate 325 MG Tablet PO (11:23)
[2018-09-28] MEDS: Calcium (Elemental) 500 MG Tablet PO (11:23)
[2018-09-28] MEDS: predniSONE 20 MG Tablet 40 MG PO (11:23)
[2018-09-28] MEDS: Azithromycin 250 MG Tablet PO (11:29)
[2018-09-28] MEDS: Cefdinir 300 MG Capsule PO (11:29)
[2018-09-28] MEDS: Metoprolol(XL)Succ 50 MG Tablet PO (11:31)
[2018-09-28 11:39] LABS: Pathologist Review Reviewed
[2018-09-28 11:40] LABS: Pathologist Review Reviewed
--- NOTE | 2018-09-28 12:03 | DCINST_ITS ---
You will use the following diet at home:: Cardiac - <2 grams sodium daily Your food should be the consistency of: Regular Your liquids should be the consistency of: Regular/Thin Discharge Activity: Return to Normal Activity Allergies/Adverse Reactions: Allergies cashew nut Allergy (Verified 09/27/18 15:58) Vomiting cortisone [Cortisone] Allergy (Verified 09/27/18 19:16) Itching-ONLY TO JOINT INJECTABLE KIND Pt states ok to take prednisone. CASHEW Adverse Reaction (Uncoded 09/27/18 15:58) Vomiting Medications to take at Discharge Fluticasone/Salmeterol [Advair 250-50 Diskus] 2 puff INHALATION DAILY 11/29/17 Albuterol Inhaler [Ventolin Hfa] 1 - 2 puff INHALATION Q4H PRN PRN 04/09/18 Amlodipine [Norvasc] 10 mg PO QHS 04/09/18 Aspirin [Aspirin, Baby] 81 mg PO QHS 04/09/18 Atorvastatin Calcium [Lipitor] 40 mg PO QHS 04/09/18 Calcium (Elemental) [[place] 500] 500 mg PO DAILY@0804/09/18 Clopidogrel Bisulfate [Clopidogrel] 75 mg PO QHS 04/09/18 Ferrous Sulfate 325 mg PO DAILY@0804/09/18 Furosemide [Lasix] 40 mg PO BID 04/09/18 Glucosamine Sulf/Chondroitin A [Glucosamine-Chondroitin Cap] 1 ea PO DAILY 04/09/18 Ipratropium/Albuterol Sulfate [Duoneb] 3 ml INHALATION TID 04/09/18 Losartan Potassium [Cozaar] 50 mg PO DAILY 04/09/18 Potassium Chloride [K-Dur] 10 meq PO DAILY #30 tab 04/17/18 umeclidinium 62.5 mcg/actuation blister powder for inhalation 1 inh INHALATION QDAY #30 ea 09/02/18 Guaifenesin [Mucinex] 800 mg PO BID PRN 09/23/18 Azithromycin [Zithromax] 250 mg PO Q24 #1 tablet 09/28/18 Cefdinir [Omnicef [equiv]] 300 mg PO Q12 #3 capsule 09/28/18 Diltiazem CD [Cardizem CD] 240 mg PO DAILY #30 capsule 09/28/18 Metoprolol(XL)Succ [Toprol Xl (Beta Meng)] 50 mg PO DAILY #30 tablet 09/28/18 Prednisone 10 mg PO UD #26 tab 09/28/18 The following prescriptions were given: Azithromycin [Zithromax] 250 mg PO Q24 #1 tablet Cefdinir [Omnicef [equiv]] 300 mg PO Q12 #3 capsule Diltiazem CD [Cardizem CD] 240 mg PO DAILY #30 capsule Metoprolol(XL)Succ [Toprol Xl (Beta Meng)] 50 mg PO DAILY #30 tablet Prednisone 10 mg PO UD #26 tab Primary Care Physician: Hernan Murray MD [Primary Care Provider] - Please follow up with your Primary Care Physician in: 1-2 weeks Test Results: Test results from this visit will be discussed in further detail at your follow- up appointment, if applicable. Please Follow Up With: Torres Oro MD When: 2 weeks Proposed Discharge Date: 09/28/18
--- NOTE | 2018-09-28 14:11 | PCM.DC.SUM ---
Discharge Date and Diagnosis Date of Admission: 09/27/18 Date of Discharge: 09/28/18 - Primary Discharge Diagnosis Partially treated CAP, presumed pneumococcal, noncompliance with medication regimen Paroxysmal Afib COPD with recent exacerbation, no acute Hx Diastolic CHF, recent exacerbation, no acute HTN ANIBAL noncompliant with CPAP Chronic hypoxic resp failure baseline 4lpm CAD old LBBB Pulmonary HTN cardiomyopathy vesico-colic fistula Morbid obesity BPH - Secondary Discharge Diagnosis Chronic Problems (Last Updated 09/27/18 @ 19:31 by Nasrin Estrada MD) COPD (chronic obstructive pulmonary disease) (Chronic) Chronic atrial fibrillation (Chronic) COPD (chronic obstructive pulmonary disease) (Chronic) CAD (coronary artery disease) (Chronic) Left bundle branch block (Chronic) CKD (chronic kidney disease), stage II (Chronic) Cardiomyopathy (Chronic) History of cardioversion (Chronic ~09/07/17) Atrial flutter (Chronic) Chronic respiratory failure (Chronic) Hypertension (Chronic) BPH (benign prostatic hypertrophy) (Chronic) HLD (hyperlipidemia) (Chronic) History of CVA (cerebrovascular accident) (Chronic) 2012 GERD (gastroesophageal reflux disease) (Chronic) Stasis dermatitis of both legs (Chronic) with hyperpigmentation ANIBAL (obstructive sleep apnea) (Chronic) Vesico-colic fistula (Chronic) Pulmonary hypertension (Chronic) Cor pulmonale (Chronic) Morbid obesity with BMI of 45.0-49.9, adult (Chronic) Hospital Course and Treatment Imaging Results: RAD/Chest 1 View (Portable) IMPRESSION: Right lower lobe infiltrate, slightly improved from the previous study. Mild cardiomegaly. Consults: Shorty - cardiology Operations: None Procedures: None Summary of Care Provided: Hospital course: The patient is a 63 year old M who was recently admitted to the hospital with community acquired pneumonia, CHF exacerbation, COPD exacerbation, who presented to the hospital today following discharge complaining of increased shortness of breath. The patient is went home and did not go to the pharmacy and fill any of his prescriptions. He did not take any of his prescribed antibiotics, did not take his prescribed prednisone taper, he did not take his prescribed Cardizem. He is fixated on his pulse ER-he states that he is good when his heart rate is 55-60, but if he becomes short of breath when his heart rate is above this at all. He states that he went home and his heart rate was high and therefore he became short of breath. He insisted that he needed further medication to control his heart rate. In the ER he was stable at his home oxygen level of 4 L/min and he did not have any worsening of his edema, no significant labral abnormalities, his heart rate was well controlled. He went home and took 400 mg of amiodarone which he is not prescribed, he also doubled his home dose of Cardizem on his own accord, and took all doxycycline which he was not prescribed. He was readmitted to the hospital with partially treated pneumonia and placed on azithromycin and Rocephin IV, resume his prednisone taper, aerosols, and Lasix. Cardiology was consulted given his insistence on his heart rate being an issue despite that it was not uncontrolled. Cardiology met with the patient and carefully explained to him the importance of carefully taking cardiac medications as self prescribing and taking too much can lead to further difficulties and furthermore these medications can be adjusted on an outpatient basis did not necessarily require hospital admission. At this time cardiology recommended he continue Cardizem as previously prescribed dose, and he would start him on Toprol 50 mg daily. He continued to have no further worsening of his oxygen demand and no signs of acute CHF or COPD. He was represcribed Omnicef and azithromycin which he has 1 more day to complete. He was represcribed a prednisone taper. 1 of the recent CK was not taking his medications at home. In order to ameliorate this issue we prescribed his medications to the pharmacy here and advised him that he needs to get them filled before leaving the hospital and going home. 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 He refuses home health care services. This patient was seen by Dc Barragan PA-C under the supervision of Doctor Anne. [] - Physical Exam General: Alert, Oriented x3, Cooperative HEENT: Atraumatic, PERRLA, EOMI, Normocephalic Neck: Supple, No JVD, Negative Carotid Bruits Lungs: Rales Cardiovascular: Regular rate, No murmurs Abdomen: Bowel Sounds Present, Soft, Non Tender Extremities: Capillary Refill Less than 3 Seconds, Edema Skin: No rashes, No breakdown Musculoskeletal: No Tenderness to Palpation of Joints or Extremities Neurological: Cranial nerves II-XII grossly intact Psych/Mental Status: Normal Affect, Appropriate Vital Signs Temp Pulse Resp BP Pulse Ox 98.0 F 79 20 H 163/70 H 98 09/28/18 09:30 09/28/18 11:31 09/28/18 09:30 09/28/18 11:31 09/28/18 09:30 Oxygen Flow Rate (L/min) 4 Oxygen Delivery Method Nasal Cannula Weight: 385 lb 2 oz Body Mass Index (BMI) 49.4 Finger Stick Blood Glucose 120 Intake and Output for Last 24 Hours 09/26/18 09/27/18 09/28/18 23:59 23:59 23:59 Intake Total 780 / 780 Balance 780 / 780 Laboratory Tests Past 24 Hrs 09/27/18 09/27/18 09/27/18 16:20 16:20 16:20 WBC 15.0 H RBC 4.33 L Hgb 13.2 Hct 41.1 MCV 94.9 H MCH 30.5 MCHC 32.1 RDW 15.6 H RDW Differential 52.9 H Plt Count 218 MPV 9.6 Immature Gran % (Auto) 2.100 H Neut % (Auto) 88.9 H Lymph % (Auto) 5.5 L [place] % (Auto) 3.3 Eos % (Auto) 0.0 Baso % (Auto) 0.2 Absolute Neuts (auto) 13.3 H Absolute Lymphs (auto) 0.83 Total Counted Not Reportable Diff Path Review Reviewed Platelet Estimate ADEQUATE Anisocytosis RARE Macrocytosis RARE D-Dimer Quant (PE/DVT) 0.55 H* Sodium Potassium Chloride Carbon Dioxide Anion Gap BUN Creatinine Estim Creat Clear Calc Est GFR (MDRD) Af Amer Est GFR (MDRD) Non-Af BUN/Creatinine Ratio Glucose Calcium Troponin I B-Natriuretic Peptide 51.3 09/27/18 09/27/18 09/27/18 16:20 17:27 20:59 WBC RBC Hgb Hct MCV MCH MCHC RDW RDW Differential Plt Count MPV Immature Gran % (Auto) Neut % (Auto) Lymph % (Auto) [place] % (Auto) Eos % (Auto) Baso % (Auto) Absolute Neuts (auto) Absolute Lymphs (auto) Total Counted Diff Path Review Platelet Estimate Anisocytosis Macrocytosis D-Dimer Quant (PE/DVT) Sodium 142 Potassium 4.8 Chloride 105 Carbon Dioxide 28.0 Anion Gap 9 BUN 41 H Creatinine 1.50 H Estim Creat Clear Calc 58.68 Est GFR (MDRD) Af Amer 60 Est GFR (MDRD) Non-Af 50 L BUN/Creatinine Ratio 27.3 H Glucose 195 H Calcium 9.7 Troponin I 0.078 H 0.061 H B-Natriuretic Peptide 09/27/18 09/28/18 09/28/18 23:14 02:25 02:25 WBC 15.2 H RBC 4.25 L Hgb 13.0 Hct 40.3 MCV 94.8 H MCH 30.6 MCHC 32.3 RDW 15.5 H RDW Differential 52.5 H Plt Count 224 MPV 9.6 Immature Gran % (Auto) 2.900 H Neut % (Auto) 80.1 H Lymph % (Auto) 4.7 L [place] % (Auto) 11.9 H Eos % (Auto) 0.1 Baso % (Auto) 0.3 Absolute Neuts (auto) 12.2 H Absolute Lymphs (auto) 0.71 L Total Counted Not Reportable Diff Path Review Reviewed Platelet Estimate Anisocytosis Macrocytosis D-Dimer Quant (PE/DVT) Sodium 140 Potassium 4.5 Chloride 106 Carbon Dioxide 25.0 Anion Gap 9 BUN 41 H Creatinine 1.36 H Estim Creat Clear Calc 62.96 Est GFR (MDRD) Af Amer 68 Est GFR (MDRD) Non-Af 56 L BUN/Creatinine Ratio 30.1 H Glucose 161 H Calcium 9.2 Troponin I 0.061 H B-Natriuretic Peptide 09/28/18 02:25 WBC RBC Hgb Hct MCV MCH MCHC RDW RDW Differential Plt Count MPV Immature Gran % (Auto) Neut % (Auto) Lymph % (Auto) [place] % (Auto) Eos % (Auto) Baso % (Auto) Absolute Neuts (auto) Absolute Lymphs (auto) Total Counted Diff Path Review Platelet Estimate Anisocytosis Macrocytosis D-Dimer Quant (PE/DVT) Sodium Potassium Chloride Carbon Dioxide Anion Gap BUN Creatinine Estim Creat Clear Calc Est GFR (MDRD) Af Amer Est GFR (MDRD) Non-Af BUN/Creatinine Ratio Glucose Calcium Troponin I 0.062 H B-Natriuretic Peptide Discharge Diet: Low fat/ Low Cholesterol, 2000 mg Sodium Diet Discharge Activity: Return to Normal Activity Home Medications: Medications to take at Discharge Fluticasone/Salmeterol [Advair 250-50 Diskus] 2 puff INHALATION DAILY 11/29/17 Albuterol Inhaler [Ventolin Hfa] 1 - 2 puff INHALATION Q4H PRN PRN 04/09/18 Amlodipine [Norvasc] 10 mg PO QHS 04/09/18 Aspirin [Aspirin, Baby] 81 mg PO QHS 04/09/18 Atorvastatin Calcium [Lipitor] 40 mg PO QHS 04/09/18 Calcium (Elemental) [[place] 500] 500 mg PO DAILY@0804/09/18 Clopidogrel Bisulfate [Clopidogrel] 75 mg PO QHS 04/09/18 Ferrous Sulfate 325 mg PO DAILY@79904/09/18 Furosemide [Lasix] 40 mg PO BID 04/09/18 Glucosamine Sulf/Chondroitin A [Glucosamine-Chondroitin Cap] 1 ea PO DAILY 04/09/18 Ipratropium/Albuterol Sulfate [Duoneb] 3 ml INHALATION TID 04/09/18 Losartan Potassium [Cozaar] 50 mg PO DAILY 04/09/18 Potassium Chloride [K-Dur] 10 meq PO DAILY #30 tab 04/17/18 umeclidinium 62.5 mcg/actuation blister powder for inhalation 1 inh INHALATION QDAY #30 ea 09/02/18 Guaifenesin [Mucinex] 800 mg PO BID PRN 09/23/18 Azithromycin [Zithromax] 250 mg PO Q24 #1 tablet 09/28/18 Cefdinir [Omnicef [equiv]] 300 mg PO Q12 #3 capsule 09/28/18 Diltiazem CD [Cardizem CD] 240 mg PO DAILY #30 capsule 09/28/18 Metoprolol(XL)Succ [Toprol Xl (Beta Meng)] 50 mg PO DAILY #30 tablet 09/28/18 Prednisone 10 mg PO UD #26 tab 09/28/18 Following Prescrptions Were Given to Patient: Azithromycin [Zithromax] 250 mg PO Q24 #1 tablet Cefdinir [Omnicef [equiv]] 300 mg PO Q12 #3 capsule Diltiazem CD [Cardizem CD] 240 mg PO DAILY #30 capsule Metoprolol(XL)Succ [Toprol Xl (Beta Meng)] 50 mg PO DAILY #30 tablet Prednisone 10 mg PO UD #26 tab Primary Care Physician: Hernan Murray MD [Primary Care Provider] - Please follow up with your Primary Care Physician in: 1-2 weeks Please Follow Up With: Torres Oro MD When: 2 weeks Please Follow Up With: Hernan Murray MD Disposition: Home Minutes spent on discharge:: 35 Patient Condition:: Stable Medical Necessity - Tobacco Use Smoking Status: Former smoker Tobacco Use: Cigarettes Meaningful Use Info Meaningful Use Diagnoses (Choose all that apply): None applicable
== END 2018-09-28 17:22 | disposition home or self-care (01) ==
LOC: ED 16:26 → PCU 23:40
PROVIDERS: Physician Assistant; Admitting Provider Hospitalist; Emergency Provider Emergency Medicine; Family Provider Family Medicine; PCP Family Medicine; Referring Provider Hospitalist; Visit Provider Internal Medicine
DX: J18.9 Pneumonia, unspecified organism (principal); I48.0 Paroxysmal atrial fibrillation; J44.9 Chronic obstructive pulmonary disease, unspecified; T36.96XA Underdosing of unspecified systemic antibiotic, initial encounter; T38.0X6A Underdosing of glucocorticoids and synthetic analogues, initial encounter; T46.1X6A Underdosing of calcium-channel blockers, initial encounter; I25.10 Atherosclerotic heart disease of native coronary artery without angina pectoris; I48.2 Chronic atrial fibrillation; I13.0 Hypertensive heart and chronic kidney disease with heart failure and stage 1 through stage 4 chronic kidney disease, or unspecified chronic kidney disease; I50.32 Chronic diastolic (congestive) heart failure; N40.0 Benign prostatic hyperplasia without lower urinary tract symptoms; K21.9 Gastro-esophageal reflux disease without esophagitis; E78.5 Hyperlipidemia, unspecified; G47.33 Obstructive sleep apnea (adult) (pediatric); E66.01 Morbid (severe) obesity due to excess calories; I25.2 Old myocardial infarction; N18.9 Chronic kidney disease, unspecified; J96.11 Chronic respiratory failure with hypoxia; I27.20 Pulmonary hypertension, unspecified; Z79.899 Other long term (current) drug therapy; Z79.82 Long term (current) use of aspirin; Z79.02 Long term (current) use of antithrombotics/antiplatelets; Z99.81 Dependence on supplemental oxygen; Z86.73 Personal history of transient ischemic attack (TIA), and cerebral infarction without residual deficits; Z68.42 Body mass index [BMI] 45.0-49.9, adult; Z71.3 Dietary counseling and surveillance; Z87.891 Personal history of nicotine dependence
CPT/HCPCS: 36415; 71045; 80048; 83880; 84484; 85025; 85379; 93005; 94640; 96365; 96366; 96367; 99218; 99285; J7030; A4216; G0378

== ENCOUNTER → 2018-10-10 | Outpatient (CLI) | payer MEDICARE, SELFPAY ==
[2018-09-27 20:04] VITALS: BMI 49.4
[2018-10-10 16:24] LABS: Anion Gap 10 (5-15); BUN 21 mg/dL (7-18); BUN/Creat Ratio 17.6 RATIO (10-20); Calcium,Total 9.2 mg/dL (8.5-10.1); Chloride 108 mmol/L (98-107); Creatinine, Serum 1.19 mg/dL (0.70-1.30); EST Glomerular Filtration Rate 65 mL/min (>60); Est Glom Filt Rate - Afr Amer 79 mL/min (>60); Glucose 158 mg/dL (74-106); Potassium 4.1 mmol/L (3.5-5.1); Sodium Level 144 mmol/L (136-145)
== END | disposition home or self-care (01) ==
PROVIDERS: Family Provider Family Medicine; PCP Family Medicine; Referring Provider Physician Assistant; Visit Provider Physician Assistant
DX: J18.9 Pneumonia, unspecified organism (principal); Z79.899 Other long term (current) drug therapy
CPT/HCPCS: 36415; 80048

== ENCOUNTER → 2019-02-13 | Outpatient (CLI) | payer MEDICARE, SELFPAY ==
[2019-02-13 13:43] VITALS: BMI 51.7
== END | disposition home or self-care (01) ==
LOC: LABSPEC 14:28
PROVIDERS: Family Provider Family Medicine; PCP Family Medicine; Referring Provider Nurse Practitioner Acute Care; Visit Provider Nurse Practitioner Acute Care
DX: J44.9 Chronic obstructive pulmonary disease, unspecified (principal)
CPT/HCPCS: 87070; 87205

== ENCOUNTER → 2019-04-25 14:57 | Outpatient (CLI) | payer MEDICARE, SELFPAY ==
[2019-04-18 13:35] VITALS: BMI 51.7
[2019-04-25 17:33] LABS: Absolute Lymphocyte Count 0.49 X10^3/uL (0.83-4.51); Absolute Neutrophil Count 11.4 X10^3/uL (2.0-7.7); Basophil# 0.04 X10^3/uL; Basophil% 0.3 % (0-1); Eosinophil# 0.01 X10^3/uL; Eosinophils% 0.1 % (0-5); Hematocrit 39.7 % (40-54); Lymphocyte # 0.49 X10^3/ul (4.0); Lymphocyte % 3.9 % (19-41); Mean Corp Hgb Conc 30.2 g/dL (32-36); Mean Corpuscular Hgb 28.2 pg (27.0-32.0); Mean Corpuscular Volume 93.2 fL (80-94); Mean Platelet Vol. 10.7 fl (6.2-12.0); Monocyte# 0.46 X10^3/uL; Monocyte% 3.7 % (0-10); NRBC Flagged by Analyzer 0 % (0-5); Neutrophil # 11.37 X10^3/uL (2.7-7.7); Neutrophil % 91.4 % (47-70); POSITIVE DIFFERENTIAL YES; Platelet Count 225 K/mm3 (150-450); RBC Distribution Width CV 14.6 % (11.6-14.6); RBC Distribution Width SD 49.2 fl (35.1-43.9); Red Blood Count 4.26 M/mm3 (4.6-6.2); White Blood Count 12.5 K/mm3 (4.4-11.0)
[2019-04-25 17:34] LABS: Differential Indicated SCAN CRITERIA MET
[2019-04-25 18:07] LABS: Differential Comment SCANNED
[2019-04-25 18:10] LABS: AST(SGOT) 11 U/L (15-37); Alanine Aminotransfer ALT/SGPT 22 U/L (16-61); Albumin, Serum 3.6 g/dL (3.2-5.0); Alkaline Phosphatase 101 U/L (45-117); Anion Gap 7 (5-15); BUN 23 mg/dL (7-18); BUN/Creat Ratio 17.2 RATIO (10-20); Calcium,Total 9.7 mg/dL (8.5-10.1); Chloride 105 mmol/L (98-107); Creatinine, Serum 1.34 mg/dL (0.70-1.30); EST Glomerular Filtration Rate 57 mL/min (>60); Est Glom Filt Rate - Afr Amer 69 mL/min (>60); Globulin 3.5 g/dL (2.2-4.2); Glucose 158 mg/dL (74-106); Potassium 4.8 mmol/L (3.5-5.1); Protein, Total 7.1 g/dL (6.4-8.2); Sodium Level 143 mmol/L (136-145); Thyroid Stim Hormone (TSH) 0.59 uIU/mL (0.358-3.74)
== END ==
PROVIDERS: Family Provider Family Medicine; PCP Family Medicine; Visit Provider Family Medicine
DX: R60.9 Edema, unspecified (principal); I10 Essential (primary) hypertension
CPT/HCPCS: 36415; 80053; 84443; 85025

== ENCOUNTER 2020-12-18 06:46 | Inpatient (IN) | payer MEDICARE, SELFPAY ==
[2019-05-23 14:02] VITALS: BMI 51.7
[2020-12-18] VITALS (16 sets, daily range): BP systolic 127–171; BP diastolic 51–83; PULSE 72–92; RESP 16–24; TEMP 36.6–37.2; O2SAT 95–99; BMI 47.1; BMI 52.7
--- NOTE | 2020-12-18 07:02 | EKG12_ITS ---
Test Reason : SOB Blood Pressure : / mmHG Vent. Rate : 080 BPM Atrial Rate : 080 BPM P-R Int : 196 ms QRS Dur : 168 ms QT Int : 460 ms P-R-T Axes : 075 070 037 degrees QTc Int : 530 ms Normal sinus rhythm Left bundle branch block Abnormal ECG Confirmed by SUSAN HERRERA, JENN ([id number]), editor publications [place] ([id number]) on 12/20/2020 2:35:29 PM Referred By: MERCED Confirmed By:AZAM DAVIS MD
--- NOTE | 2020-12-18 07:02 | RAD_ITS ---
EXAM: XR CHEST, 1 VIEW CLINICAL INDICATION: sob TECHNIQUE: Frontal view of the chest. This report was created using xiao qu wu you report generation technology. COMPARISON: 09/27/2018. FINDINGS: LUNGS AND PLEURAL SPACES: Mild increased haziness of the right lung and in the left midlung. No pneumothorax. No effusion. HEART: Mild cardiomegaly. Mild pulmonary vascular congestion. MEDIASTINUM: Central airways and mediastinal contour are unremarkable. BONES/JOINTS: Unremarkable. SOFT TISSUES: Unremarkable. RAD/Chest 1 View (Portable) IMPRESSION: Suspicious acute CHF. HRCT chest will help clarify if pneumonia is a clinical consideration. Electronically Signed: Deven Terrell MD at 8:26 EDT , Service support ,
--- NOTE | 2020-12-18 07:04 | ED.DCSUM_ITS ---
History of Present Illness Chief Complaint: Shortness of Breath Informant: Patient Onset: Days Narrative: Patient present secondary to chest pain and shortness of breath. He states he has chronic shortness of breath and wears 4 L nasal cannula chronically. Today he had more shortness of breath with difficulty ambulating. He also reports several episodes of chest pain since yesterday afternoon. Yesterday he reportedly ingested gunpowder hoping to get the nitro out of it to help his chest pain. He states this did help and his chest pain went away at the time. - Past Medical History (1) Atrial flutter Status: Chronic (2) BPH (benign prostatic hypertrophy) Status: Chronic (3) CAD (coronary artery disease) Status: Chronic (4) CKD (chronic kidney disease), stage II Status: Chronic (5) COPD (chronic obstructive pulmonary disease) Status: Chronic (6) Cardiomyopathy Status: Chronic (7) Chronic atrial fibrillation Status: Chronic (8) Chronic respiratory failure Status: Chronic (9) Cor pulmonale Status: Chronic (10) GERD (gastroesophageal reflux disease) Status: Chronic (11) HLD (hyperlipidemia) Status: Chronic (12) History of CVA (cerebrovascular accident) Status: Chronic Comment: 2012 (13) Hypertension Status: Chronic (14) Paroxysmal atrial fibrillation Status: Chronic Comment: [facility] 08/2017; (15) Pulmonary hypertension Status: Chronic Past Medical History - Allergies and Home Meds Allergies/Adverse Reactions: Allergies cashew nut Allergy (Verified 12/18/20 06:54) Vomiting cortisone [Cortisone] Allergy (Verified 12/18/20 06:54) Itching-ONLY TO JOINT INJECTABLE KIND Pt states ok to take prednisone. CASHEW Adverse Reaction (Uncoded 12/18/20 06:54) Vomiting Prior records reviewed: Yes Surgical History: - - Cyst removal lower back, ulnar relocation right elbow. Smoking Status: Former smoker - Family History Maternal Family History: Family History (Last Reviewed 05/23/19 @ 13:29 by Chantale Lockhart) Mother Cancer Brother Sudden cardiac Father Heart disease Family History: Reports: Cancer - Lung and brain cancer Paternal Family History: Family History (Last Reviewed 05/23/19 @ 13:29 by Chantale Lockhart) Mother Cancer Brother Sudden cardiac Father Heart disease Family History: Reports: Heart Disease - father of a cardiomyopathy Sibling Family History: Family History (Last Reviewed 05/23/19 @ 13:29 by Chantale Lockhart) Mother Cancer Brother Sudden cardiac Father Heart disease Family History: Reports: - - brother dropped at 60 drinking a beer Review of Systems General: Denies: Chills, Fever Eyes: Denies: Visual changes - bilaterally ENT: Denies: Bilateral ear pain Cardiovascular: Reports: Chest pain. Denies: Palpitations Respiratory: Reports: Dyspnea, Cough Gastrointestinal: Denies: Abdominal pain, Nausea, Vomiting, Diarrhea Musculoskeletal: Denies: Extremity Pain Skin: Denies: Rash Hematologic: Denies: Easy bruising, Easy bleeding Allergy: Denies: Uticaria Physical Exam Vital Signs/Narrative: Vital Signs Temp Pulse Resp BP Pulse Ox 12/18/20 06:47 98.2 F 92 22 H 169/67 H 95 Inital Vital Signs reviewed: Yes General: Well nourished, Well developed Head: Normocephalic Neck: Supple Cardiovascular: Regular rate, Regular rhythm Respiratory: No distress, Diminished Abdomen: Soft, Nontender Extremities: Edema - Bilateral lower extremity edema with chronic venous skin changes. Neurological: Alert, Oriented x3 Psychological: Normal affect Diagnostic/Tx/Re-eval Chest X-Ray - ED: 1 View, Read by ED Physician, Chronic Changes Impressions Chest X-Ray 12/18/20 07:02 IMPRESSION: Suspicious acute CHF. HRCT chest will help clarify if pneumonia is a clinical consideration. Electronically Signed: Deven Terrell MD at 8:26 EDT , Service support , Chest CTA 12/18/20 08:15 IMPRESSION: 1. No pulmonary embolism or arterial dissection. 2. There is diffuse groundglass attenuation of the pulmonary parenchyma, this may represent pulmonary edema. Mild cardiomegaly. 3. Nonspecific mediastinal adenopathy. 4. 1.4 x 1 cm posterior right thyroid lobe hypodense nodule. Thyroid ultrasound can be obtained for further characterization. 5. Scattered pulmonary nodules measuring up to 5 mm. If high risk for developing pulmonary malignancy continued annual chest CT is recommended. Electronically Signed: Mell Montalvo MD at 9:37 EDT Tel , Service support , 12/18/20 07:02 Chest 1 View (Portable) [RAD] Stat 12/18/20 08:15 CTA Chest W/WO Contrast [CT] Stat 12/18/20 07:09 Mucosa - Nose SARS-CoV-2 Antigen (Rapid) - Final Laboratory Results 12/18/20 12/18/20 12/18/20 07:24 07:24 07:24 WBC 12.0 H RBC 3.66 L Hgb 10.6 L Hct 34.6 L MCV 94.5 H MCH 29.0 MCHC 30.6 L RDW Std Deviation 50.2 H RDW Coeff of Bunny 14.4 Plt Count 215 MPV 9.7 Immature Gran % (Auto) 0.500 Neut % (Auto) 84.9 H Lymph % (Auto) 4.9 L [place] % (Auto) 7.2 Eos % (Auto) 2.2 Baso % (Auto) 0.3 Absolute Neuts (auto) 10.2 H Absolute Lymphs (auto) 0.59 L Nucleated RBC % 0 Differential Comment COMMENT D-Dimer Quant (PE/DVT) 1.05 H* Sodium 141 Potassium 3.8 Chloride 110 H Carbon Dioxide 29.0 Anion Gap 2 L BUN 23 H Creatinine 1.29 Estim Creat Clear Calc 64.61 Est GFR (MDRD) Af Amer 71 Est GFR (MDRD) Non-Af 59 L BUN/Creatinine Ratio 17.8 Glucose 157 H Calcium 8.5 Troponin I 0.157 H B-Natriuretic Peptide 12/18/20 07:24 WBC RBC Hgb Hct MCV MCH MCHC RDW Std Deviation RDW Coeff of Bunny Plt Count MPV Immature Gran % (Auto) Neut % (Auto) Lymph % (Auto) [place] % (Auto) Eos % (Auto) Baso % (Auto) Absolute Neuts (auto) Absolute Lymphs (auto) Nucleated RBC % Differential Comment D-Dimer Quant (PE/DVT) Sodium Potassium Chloride Carbon Dioxide Anion Gap BUN Creatinine Estim Creat Clear Calc Est GFR (MDRD) Af Amer Est GFR (MDRD) Non-Af BUN/Creatinine Ratio Glucose Calcium Troponin I B-Natriuretic Peptide 98.1 - EKG Initial EKG Interpretation: Sinus Rhythm - Sinus rhythm with a left bundle branch block. No obvious ST change. Follow-up EKG Interpretation: Sinus Rhythm - Sinus at 83 with left bundle branch block. No significant change when compared to prior. - Medical Decision Making Patient been given aspirin with EMS. Blood work here indicates an indeterminate troponin. D-dimer is elevated. Chest x-ray per my interpretation shows chronic changes. CTA of the chest was obtained that reveals no evidence of PE. Some pulmonary edema noted. Patient was discussed with Dr. Anne and will be admitted to the floor for further treatment. Prior to going to the floor patient states he was having chest pain again. Repeat EKG at that time is unremarkable. 1 nitro was given and patient states his pain is completely resolved with this. ED Disposition - Plan for ED Patient: Disposition: Acute Care [facility] Diagnosis: CHF (congestive heart failure), Chest pain
[2020-12-18 07:34] LABS: Absolute Lymphocyte Count 0.59 X10^3/uL (0.83-4.51); Absolute Neutrophil Count 10.2 X10^3/uL (2.0-7.7); Basophil# 0.04 X10^3/uL; Basophil% 0.3 % (0-1); Differential Indicated SCAN CRITERIA MET; Eosinophil# 0.26 X10^3/uL; Eosinophils% 2.2 % (0-5); Hematocrit 34.6 % (40-54); Hemoglobin 10.6 g/dL (13.0-16.5); Lymphocyte # 0.59 X10^3/ul (4.0); Lymphocyte % 4.9 % (19-41); Mean Corp Hgb Conc 30.6 g/dL (32-36); Mean Corpuscular Volume 94.5 fL (80-94); Mean Platelet Vol. 9.7 fl (6.2-12.0); Monocyte# 0.87 X10^3/uL; Monocyte% 7.2 % (0-10); NRBC Flagged by Analyzer 0 % (0-5); Neutrophil # 10.21 X10^3/uL (2.7-7.7); Neutrophil % 84.9 % (47-70); POSITIVE DIFFERENTIAL YES; Platelet Count 215 K/mm3 (150-450); RBC Distribution Width CV 14.4 % (11.6-14.6); RBC Distribution Width SD 50.2 fl (35.1-43.9); Red Blood Count 3.66 M/mm3 (4.6-6.2)
[2020-12-18 07:48] LABS: Anion Gap 2 (5-15); BUN 23 mg/dL (7-18); BUN/Creat Ratio 17.8 RATIO (10-20); Calcium,Total 8.5 mg/dL (8.5-10.1); Chloride 110 mmol/L (98-107); Creatinine, Serum 1.29 mg/dL (0.70-1.30); EST Glomerular Filtration Rate 59 mL/min (>60); Est Glom Filt Rate - Afr Amer 71 mL/min (>60); Estimated Creatinine Clearance 64.61 ml/min; Glucose 157 mg/dL (74-106); Potassium 3.8 mmol/L (3.5-5.1); Sodium Level 141 mmol/L (136-145)
[2020-12-18 07:57] LABS: BNP,B-Type NATRIURETIC PEPTIDE 98.1 pg/mL (0-100)
[2020-12-18 08:01] LABS: D-Dimer Quantitative (DVT/PE) 1.05 FEU/ug/m (0.27-0.49)
--- NOTE | 2020-12-18 08:15 | CT_ITS ---
STUDY: CTA CHEST REASON FOR EXAM: Male, 65 years old. Shortness of breath. Chest pain. Hypertension, COPD, CAD RADIATION DOSAGE (If Supplied By Facility): CTDIvol = ( 28.2 ) mGy, DLP = ( 857.04 ) mGycm TECHNIQUE: The examination was performed with the intravenous administration of IV 100mL Isovue-370. Post-processing of the angiographic images was performed, with multiplanar reformation and 3D reconstruction. Individualized dose optimization techniques were used for this CT. COMPARISON: None. FINDINGS: 1.4 x 1 cm posterior right thyroid lobe hypodense nodule. There is limited enhancement of the main pulmonary artery and right and left pulmonary arteries. There is limited enhancement of the bilateral peripheral pulmonary arteries. There is no demonstrated pulmonary embolism. Normal pleura. Mild emphysema. There is diffuse ground glass attenuation of the pulmonary parenchyma. 5 mm right middle lobe nodule on series 2 image 121. There are scattered 2-3 mm pulmonary nodules and small calcified granulomas. There is respiratory motion at the lung bases, limiting evaluation. Mild aortic atherosclerotic disease. There is no demonstrated aortic dissection. Mild cardiomegaly. Marked coronary artery calcifications. There is nonspecific mediastinal adenopathy measuring up to 1.5 cm in the precarinal region No axillary or bulky hilar adenopathy. Normal visualized trachea and bronchi. Normal chest wall structures. There are degenerative changes of thoracic spine. Normal visualized upper abdomen. CT/CTA Chest W/WO Contrast IMPRESSION: 1. No pulmonary embolism or arterial dissection. 2. There is diffuse groundglass attenuation of the pulmonary parenchyma, this may represent pulmonary edema. Mild cardiomegaly. 3. Nonspecific mediastinal adenopathy. 4. 1.4 x 1 cm posterior right thyroid lobe hypodense nodule. Thyroid ultrasound can be obtained for further characterization. 5. Scattered pulmonary nodules measuring up to 5 mm. If high risk for developing pulmonary malignancy continued annual chest CT is recommended. Electronically Signed: Mell Montalvo MD at 9:37 EDT Tel , Service support ,
--- NOTE | 2020-12-18 09:56 | NURSING ---
DR GONZALEZ HYLTON THOMPSON
--- NOTE | 2020-12-18 10:00 | NURSING ---
ANNETTE ROTH CHF, CP
[2020-12-18] MEDS: Nitroglycerin SL (ED/IMG/CATH) 0.4 MG TABLET SL (10:06)
--- NOTE | 2020-12-18 10:07 | EKG12_ITS ---
Test Reason : SOB Blood Pressure : / mmHG Vent. Rate : 083 BPM Atrial Rate : 083 BPM P-R Int : 152 ms QRS Dur : 168 ms QT Int : 446 ms P-R-T Axes : 087 071 088 degrees QTc Int : 524 ms Normal sinus rhythm Left bundle branch block Abnormal ECG Confirmed by SUSAN HERRERA, JENN ([id number]), video tape editor AZRA DOBBINS ([id number] on 12/26/2020 10:04:13 AM Referred By: MERCED Confirmed By:AZAM DAVIS MD
--- NOTE | 2020-12-18 10:25 | ECHOCS_ITS ---
Reason For Study: CHF Procedure This was a 2D Doppler, Color Flow transthoracic echocardiogram. The study was technically difficult. Contrast injection was performed. Exam performed portable in patient room. Left Ventricle Based upon the 2D echocardiographic and contrast enhanced images obtained there appears to be grossly normal left ventricular size, wall motion, and systolic function. The estimated ejection fraction is 55 %. Septal motion consistent with IVCD. There is evidence of diastolic dysfunction. Right Ventricle Normal RV size. Normal systolic function. Atria The left atrium is mildly enlarged. Normal right atrium. No doppler evidence for ASD. Mitral Valve There is no mitral annular calcification. Normal mitral valve. Trivial mitral valve insufficiency. Tricuspid Valve The tricuspid valve is not well visualized. Trivial tricuspid valve insufficiency. Right ventricular systolic pressure estimated to be 50 mmHg. Aortic Valve The aortic valve is not well visualized. Pulmonic Valve The pulmonic valve is not well visualized. Great Vessels Normal sized aortic root. Pericardium/Pleural No pericardial effusion. Medication Diluted definity 6ml given slow IV push to enhance endocardial definition. MMode/2D Measurements & Calculations RVDd: 4.7 cm LVOT diam: 2.0 cm Ao root diam: 3.2 cm LVOT area: 3.1 cm2 LAV(MOD-bp): 82.6 ml SV(MOD-sp4): 175.0 ml LVAd ap4: 63.2 cm2 LAV(MOD-bp) Indexed: 28.0 ml/m2 EDV(MOD-sp4): 329.4 ml LAV(MOD-sp2): 88.5 ml EDV(sp4-el): 347.7 ml LAV(MOD-sp4): 63.5 ml LVAs ap4: 41.0 cm2 ESV(MOD-sp4): 154.5 ml ESV(sp4-el): 159.6 ml EF(MOD-sp4): 53.1 % EF(sp4-el): 54.1 % SV(sp4-el): 188.1 ml LA dimension(2D): 4.0 cm LA A4 area: 22.3 cm2 RA A4 area: 20.8 cm2 Time Measurements MV dec time: 0.24 sec Doppler Measurements & Calculations MV E max meño: 115.3 cm/sec Lat Peak E' Meño: 10.3 cm/sec Med Peak E' Meño: 5.9 cm/sec MV A max meño: 120.0 cm/sec E/E' lat: 11.1 E/E' med: 19.7 MV E/A: 0.96 Ao V2 max: 218.4 cm/sec LV V1 max: 145.0 cm/sec SV(LVOT): 102.1 ml Ao max P.1 mmHg LV V1 max P.4 mmHg Ao V2 mean: 166.9 cm/sec LV V1 mean P.4 mmHg Ao mean P.2 mmHg LV V1 mean: 93.7 cm/sec Ao V2 VTI: 44.6 cm LV V1 VTI: 33.4 cm RADHA(I,D): 2.3 cm2 RADHA(V,D): 2.0 cm2 PA V2 max: 190.6 cm/sec TR max meño: 342.8 cm/sec TR max P.0 mmHg ECHO/Echo Complete W/ Contrast Interpretation Summary The study was technically difficult. Contrast injection was performed. Based upon the 2D echocardiographic and contrast enhanced images obtained there appears to be grossly normal left ventricular size, wall motion, and systolic function. The estimated ejection fraction is 55 %. Septal motion consistent with IVCD. The left atrium is mildly enlarged. Trivial mitral valve insufficiency. Trivial tricuspid valve insufficiency. Right ventricular systolic pressure estimated to be 50 mmHg c/w pulmonary hyper tension. There is evidence of diastolic dysfunction. Ordering Physician: Evaristo Anne Referring Physician: LETICIA KENDALL Performed By: Sulma Hernandez RDCS
--- NOTE | 2020-12-18 11:23 | NURSING ---
patients hand knifes x2 locked up in med drawer per patient permission
[2020-12-18] MEDS: 0.9% Saline Lock 10 ML Syringe IV ×2 (11:42→21:47)
[2020-12-18] MEDS: Potassium Chloride Oral Tablet 20 MEQ 40 MEQ PO ×2 (11:42→16:38)
[2020-12-18] MEDS: Furosemide 40 MG/4 ML Vial IV ×2 (11:42→21:47)
[2020-12-18] MEDS: Ipratropium/Albuterol Sulfate 3 ML AMPUL.NEB INHALATION ×2 (13:20→18:55)
--- NOTE | 2020-12-18 13:53 | HP.PCM_ITS ---
Problem List (1) CHF (congestive heart failure) Status: Acute (2) Chest pain Status: Acute (3) Shortness of breath Status: Acute (4) Streptococcal pneumonia Status: Resolved (5) COPD (chronic obstructive pulmonary disease) Status: Chronic Qualifiers: (6) Chronic atrial fibrillation Status: Chronic (7) COPD (chronic obstructive pulmonary disease) Status: Chronic Qualifiers: COPD type: chronic bronchitis Chronic bronchitis type: mucopurulent Qualified Code(s): J41.1 - Mucopurulent chronic bronchitis (8) CAD (coronary artery disease) Status: Chronic Qualifiers: Coronary Disease-Associated Artery/Lesion type: [place] artery [place] vs. transplanted heart: [place] heart Associated angina: without angina Qualified Code(s): I25.10 - Atherosclerotic heart disease of [place] coronary artery without angina pectoris (9) Left bundle branch block Status: Chronic (10) CKD (chronic kidney disease), stage II Status: Chronic (11) Cardiomyopathy Status: Chronic Qualifiers: Cardiomyopathy type: unspecified Qualified Code(s): I42.9 - Cardiomyopathy, unspecified (12) History of cardioversion Status: Resolved (13) Atrial flutter Status: Chronic Qualifiers: (14) Hx of decompression of ulnar nerve Status: Chronic (15) Hypertension Status: Chronic Qualifiers: Hypertension type: essential hypertension Qualified Code(s): I10 - Essential (primary) hypertension (16) BPH (benign prostatic hypertrophy) Status: Chronic (17) HLD (hyperlipidemia) Status: Chronic Qualifiers: Hyperlipidemia type: mixed hyperlipidemia Qualified Code(s): E78.2 - Mixed hyperlipidemia (18) History of CVA (cerebrovascular accident) Status: Chronic Comment: 2013 (19) GERD (gastroesophageal reflux disease) Status: Chronic (20) Stasis dermatitis of both legs Status: Chronic Comment: with hyperpigmentation (21) ANIBAL (obstructive sleep apnea) Status: Chronic Comment: Non-compliant (22) Vesico-colic fistula Status: Chronic (23) Pulmonary hypertension Status: Resolved (24) Cor pulmonale Status: Resolved (25) Morbid obesity with BMI of 45.0-49.9, adult Status: Chronic History of Present Illness Date of Admission: 12/18/20 Chief Complaint: Chest pain and shortness of breath Patient is a 65-year-old male who presents to the ED at [facility] with a chief complaint of chest pain and shortness of breath. Patient reports a 4-day history of worsening shortness of breath, however he is also chronically short of breath and wears oxygen via nasal cannula at 4 L/min. He reports that the shortness of breath is worse with worse with ambulation. Patient also endorses chest pain since yesterday afternoon. Per the ED physician's note the patient reportedly ingested gunpowder hoping nitroglycerin and it would resolve his chest pain, patient told the ED physician that this he lped. Past medical history is significant for CHF, Atrial flutter, COPD, cardiomyopathy, chronic A. fib, hypertension and pulmonary hypertension. CBC unremarkable. BMP unremarkable. Second troponin elevated at 0.631. BNP not elevated. D-dimer also elevated at 1.05. CT-A demonstrates no pulmonary embolism or arterial dissection. CT-A also significant for scattered pulmonary nodules which may be suggestive of malignancy and a posterior right thyroid lobe hypodense nodule. Chest x-ray is suspicious for acute CHF. Patient will be admitted for shortness of breath and chest pain of unclear etiology, suspect acute CHF exacerbation. Past Medical History Past Medical History (Chronic Problems): Chronic Problems (Last Reviewed 05/23/19 @ 13:29 by Chantale Lockhart) COPD (chronic obstructive pulmonary disease) (Chronic) Chronic atrial fibrillation (Chronic) COPD (chronic obstructive pulmonary disease) (Chronic) CAD (coronary artery disease) (Chronic) Left bundle branch block (Chronic) CKD (chronic kidney disease), stage II (Chronic) Cardiomyopathy (Chronic) Atrial flutter (Chronic) Chronic respiratory failure (Chronic) Hypertension (Chronic) BPH (benign prostatic hypertrophy) (Chronic) HLD (hyperlipidemia) (Chronic) History of CVA (cerebrovascular accident) (Chronic) 2012 GERD (gastroesophageal reflux disease) (Chronic) Stasis dermatitis of both legs (Chronic) with hyperpigmentation ANIBAL (obstructive sleep apnea) (Chronic) Non-compliant Vesico-colic fistula (Chronic) Morbid obesity with BMI of 45.0-49.9, adult (Chronic) Medical History: Medical History (Last Reviewed 05/23/19 @ 13:29 by Chantale Lockhart) Chronic atrial fibrillation (Chronic) I48.2 COPD (chronic obstructive pulmonary disease) (Chronic) J44.9 CAD (coronary artery disease) (Chronic) I25.10 Left bundle branch block (Chronic) I44.7 CKD (chronic kidney disease), stage II (Chronic) N18.2 Cardiomyopathy (Chronic) I42.9 History of cardioversion (Chronic) Onset Date: ~09/07/17 Z98.890 Atrial flutter (Chronic) I48.92 Hypertension (Chronic) I10 BPH (benign prostatic hypertrophy) (Chronic) N40.0 HLD (hyperlipidemia) (Chronic) E78.5 History of CVA (cerebrovascular accident) (Chronic) Z86.73 2012 GERD (gastroesophageal reflux disease) (Chronic) K21.9 Stasis dermatitis of both legs (Chronic) I83.11, I83.12 with hyperpigmentation ANIBAL (obstructive sleep apnea) (Chronic) G47.33 Non-compliant Vesico-colic fistula (Chronic) N32.1 Pulmonary hypertension (Chronic) I27.2 Cor pulmonale (Chronic) I27.81 Morbid obesity with BMI of 45.0-49.9, adult (Chronic) E66.01, Z68.42 CVA (cerebral vascular accident) Onset Date: ~2012 I63.9 NSTEMI (non-ST elevated myocardial infarction) (Resolved) I21.4 Allergies cashew nut Allergy (Verified 12/18/20 06:54) Vomiting cortisone [Cortisone] Allergy (Verified 12/18/20 06:54) Itching-ONLY TO JOINT INJECTABLE KIND Pt states ok to take prednisone. CHELSEA Adverse Reaction (Uncoded 12/18/20 06:54) Vomiting Home Medications: Ambulatory Orders Medication Instructions Recorded Albuterol Inhaler [Ventolin Hfa] 1 - 2 puff INHALATION Q4H PRN PRN 04/09/18 Amlodipine [Norvasc] 10 mg PO QHS 04/09/18 Aspirin [Aspirin, Baby] 81 mg PO QHS 04/09/18 Atorvastatin Calcium [Lipitor] 40 mg PO QHS 04/09/18 Calcium (Elemental) [[place] 500] 500 mg PO DAILY@0800 04/09/18 Clopidogrel Bisulfate [Clopidogrel] 75 mg PO QHS 04/09/18 Ferrous Sulfate 325 mg PO QHS 04/09/18 Furosemide [Lasix] 40 mg PO BID 04/09/18 Ipratropium/Albuterol Sulfate 3 ml INHALATION TID 04/09/18 [Duoneb] Potassium Chloride Oral Tablet 10 meq PO DAILY #30 tab 04/17/18 [K-Dur] Guaifenesin [Mucinex] 800 mg PO BID PRN 09/23/18 losartan 50 mg tablet 50 mg PO QHS tab 10/10/18 ropinirole 0.5 mg tablet 2 tablet PO QHS PRN 30 Days #60 tab 02/13/19 Diltiazem HCl [Diltiazem 24Hr Cd] 240 mg PO QHS 12/18/20 Fluticasone Propion/Salmeterol 1 puff INHALATION BID 12/18/20 [[place] 250-50 Inhub] Losartan Potassium [Cozaar] 25 mg PO DAILY 12/18/20 Meloxicam 15 mg PO DAILY 12/18/20 Metoprolol Succinate 50 mg PO QHS 12/18/20 Prednisone 10 mg PO DAILY 12/18/20 Surgical History: Surgical History (Last Reviewed 05/23/19 @ 13:29 by Chantale Lockhart) Hx of decompression of ulnar nerve (Resolved) Z98.890 Surgical History: - - Cyst removal lower back, ulnar relocation right elbow. Psychiatric History: No pertinent psych hx Smoking Status: Former smoker Tobacco Use: Cigarettes - *Family History Maternal Family History: Family History (Last Reviewed 05/23/19 @ 13:29 by Chantale Lockhart) Mother Cancer Brother Sudden cardiac Father Heart disease History Items: Cancer - Lung and brain cancer Paternal Family History: Family History (Last Reviewed 05/23/19 @ 13:29 by Chantale Lockhart) Mother Cancer Brother Sudden cardiac Father Heart disease History Items: Heart Disease - father of a cardiomyopathy Sibling Family History: Family History (Last Reviewed 05/23/19 @ 13:29 by Chantale Lockhart) Mother Cancer Brother Sudden cardiac Father Heart disease History Items: - - brother dropped at 60 drinking a beer Review of Systems Constitutional: Denies: Chills, Fever, Weight Change HEENT: Denies: Head Aches, Sinus Congestion, Sinus Drainage Cardiovascular: Reports: Chest Pain, Edema Respiratory: Reports: Cough, Shortness of Breath, Shortness of breath upon exertion Gastrointestinal: Denies: Abdominal Pain, Nausea, Vomiting Genitourinary: Denies: Dysuria Musculoskeletal: Reports: Arm Pain Skin: Denies: Rash, Wounds Neurological: Denies: Numbness, Tingling, Focal weakness Psychiatric: Denies: Anxiety, Depression, Homicidal Ideations, Suicidal Ideations Hematologic/ Lymphatic: Denies: Easy Bruising, Easy Bleeding VTE Information - Inpt Only VTE Present on Admission: No Patient Problems: Active and Suspected Problems (Last Reviewed 05/23/19 @ 13:29 by Chantale Lockhart) CHF (congestive heart failure) (Acute) Chest pain (Acute) Shortness of breath (Acute) Subjective: Patient is a 65-year-old male who is sitting off to the side of the bed, alert and oriented x3. Patient does demonstrate a basic knowledge of cardiac physiology due to his extensive cardiac history. Is inquiring about whether he can be placed on some sort of vasodilator to relieve his chronic angina. Objective: Clinical Impression(s) from Imaging Studies Chest X-Ray 12/18/20 07:02 IMPRESSION: Suspicious acute CHF. HRCT chest will help clarify if pneumonia is a clinical consideration. Electronically Signed: Deven Terrell MD at 8:26 EDT , Service support , Chest CTA 12/18/20 08:15 IMPRESSION: 1. No pulmonary embolism or arterial dissection. 2. There is diffuse groundglass attenuation of the pulmonary parenchyma, this may represent pulmonary edema. Mild cardiomegaly. 3. Nonspecific mediastinal adenopathy. 4. 1.4 x 1 cm posterior right thyroid lobe hypodense nodule. Thyroid ultrasound can be obtained for further characterization. 5. Scattered pulmonary nodules measuring up to 5 mm. If high risk for developing pulmonary malignancy continued annual chest CT is recommended. Electronically Signed: Mell Montalvo MD at 9:37 EDT Tel , Service support , Microbiology 12/18/20 07:09 Mucosa - Nose SARS-CoV-2 Antigen (Rapid) - Final - Physical Exam Vitals/I&O's: Vital Signs Temp Pulse Resp BP Pulse Ox 98.0 F 79 22 H 127/58 H 98 12/18/20 10:45 12/18/20 13:20 12/18/20 13:20 12/18/20 10:45 12/18/20 13:20 Oxygen Flow Rate (L/min) 5 Oxygen Delivery Method Nasal Cannula Weight: 410 lb 8.011 oz Body Mass Index (BMI) 52.7 Finger Stick Blood Glucose 120 Intake and Output for Last 24 Hours 12/16/20 12/17/20 12/18/20 23:59 23:59 23:59 Intake Total 240 / 240 Output Total 400 / 400 Balance -160 / -160 General: Alert, Oriented x3, Cooperative HEENT: Atraumatic, PERRLA, EOMI, Normocephalic Neck: Supple, No JVD, Negative Carotid Bruits Lungs: Diminished, Short of Breath - With exertion, Tachypneic Cardiovascular: Regular rate, No murmurs Abdomen: Bowel Sounds Present, Soft, Non Tender Extremities: Diminished Peripheral Pulses, Edema, - - Endorses neuropathy of the left foot Skin: No breakdown Musculoskeletal: No Tenderness to Palpation of Joints or Extremities Neurological: Cranial nerves II-XII grossly intact Psych/Mental Status: Normal Affect, Appropriate Microbiology Past 72 Hours 12/18/20 07:09 Mucosa - Nose SARS-CoV-2 Antigen (Rapid) - Final Laboratory Results 12/18/20 07:24: WBC 12.0 H, RBC 3.66 L, Hgb 10.6 L, Hct 34.6 L, MCV 94.5 H, MCH 29.0, MCHC 30.6 L, RDW Std Deviation 50.2 H, RDW Coeff of Bunny 14.4, Plt Count 215, MPV 9.7, Immature Gran % (Auto) 0.500, Neut % (Auto) 84.9 H, Lymph % (Auto) 4.9 L, [place] % (Auto) 7.2, Eos % (Auto) 2.2, Baso % (Auto) 0.3, Absolute Neuts (auto) 10.2 H, Absolute Lymphs (auto) 0.59 L, Nucleated RBC % 0, Differential Comment COMMENT 12/18/20 07:24: D-Dimer Quant (PE/DVT) 1.05 H* 12/18/20 07:24: Sodium 141, Potassium 3.8, Chloride 110 H, Carbon Dioxide 29.0, Anion Gap 2 L, BUN 23 H, Creatinine 1.29, Estim Creat Clear Calc 64.61, Est GFR (MDRD) Af Amer 71, Est GFR (MDRD) Non-Af 59 L, BUN/Creatinine Ratio 17.8, Glucose 157 H, Calcium 8.5, Troponin I 0.157 H 12/18/20 07:24: B-Natriuretic Peptide 98.1 12/18/20 11:05: Troponin I 0.631 H* Current Medications Acetaminophen (Acetaminophen 325 Mg Tablet) 650 mg PO Q6H PRN PRN PRN Reason: Pain Score 1-10/Temp > 100.7 F Albuterol Sulfate (Albuterol 2.5 Mg/3 Ml Vial.Neb.) 2.5 mg INHALATION Q2H PRN PRN PRN Reason: DYSPNEA Albuterol/Ipratropium (Ipratropium/Albuterol Sulfate 3 Ml Ampul.Neb) 3 ml INHALATION Q6HWA.RT [facility] Last Admin: 12/18/20 13:20 Dose: 3 ml Documented by: Amlodipine Besylate (Amlodipine 10 Mg Tablet) 10 mg PO QHS [facility] Aspirin (Aspirin 81 Mg Tab.Chew) 81 mg PO QHS [facility] Atorvastatin Calcium (Atorvastatin Calcium 40 Mg Tablet) 40 mg PO QHS [facility] Clopidogrel Bisulfate (Clopidogrel Bisulfate 75 Mg Tablet) 75 mg PO QHS [facility] Diltiazem HCl (Diltiazem Cd 240 Mg Capsule) 240 mg PO QHS [facility] Enoxaparin Sodium (Enoxaparin 40 Mg/0.4 Ml Syringe) 40 mg SC DAILY [facility] Ferrous Sulfate (Ferrous Sulfate 325 Mg Tablet) 325 mg PO 1200 [facility] Furosemide (Furosemide 40 Mg/4 Ml Vial) 40 mg IV Q8 [facility] Sodium Chloride () 250 mls @ 15 mls/hr IV .[id number] PRN PRN Reason: Saline Flush Sodium Chloride () 250 mls @ 15 mls/hr IV .[id number] PRN PRN Reason: Additional IVPB Infusion Losartan Potassium (Losartan Potassium 25 Mg Tablet) 25 mg PO DAILY [facility] Losartan Potassium (Losartan Potassium 50 Mg Tablet) 50 mg PO QHS [facility] Metoprolol Succinate (Metoprolol(Xl)Succ 50 Mg Tablet) 50 mg PO QHS [facility] Ondansetron HCl (Ondansetron 4 Mg/2 Ml Vial) 4 mg IV Q8H PRN PRN PRN Reason: NAUSEA/VOMITING Potassium Chloride (Potassium Chloride Oral Tablet 20 Meq) 40 meq PO BIDCM [facility] Pramipexole Dihydrochloride (Pramipexole Di-Hcl 0.5 Mg Tablet) 0.5 mg PO QHS [facility] Sodium Chloride (0.9% Saline Lock 10 Ml Syringe) 10 - 40 ml IV UD PRN PRN Reason: SALINE FLUSH Last Admin: 12/18/20 11:42 Dose: 10 ml Documented by: Assessment/Plan All Active Problems (Last Reviewed 05/23/19 @ 13:29 by Chantale Lockhart) CHF (congestive heart failure) (Acute) Chest pain (Acute) Shortness of breath (Acute) Streptococcal pneumonia (Resolved) History of cardioversion (Resolved ~09/07/17) Hx of decompression of ulnar nerve (Resolved) Pulmonary hypertension (Resolved) Cor pulmonale (Resolved) Cellulitis of back [any part except buttock] (Resolved) NSTEMI (non-ST elevated myocardial infarction) (Resolved) Non-STEMI (non-ST elevated myocardial infarction) (Resolved) Patient is a 65-year-old male who presents to the ED at [facility] with a chief complaint of chest pain and shortness of breath. Patient reports a 4-day history of worsening shortness of breath, however he is also chronically short of breath and wears oxygen via nasal cannula at 4 L/min. He reports that the shortness of breath is worse with worse with ambulation. Patient also endorses chest pain since yesterday afternoon. Per the ED physician's note the patient reportedly ingested gunpowder hoping nitroglycerin and it would resolve his chest pain, patient told the ED physician that this helped. Past medical history is significant for CHF, Atrial flutter, COPD, cardiomyopathy, chronic A. fib, hypertension and pulmonary hypertension. Work- up in the ED is significant for an EKG with normal sinus rhythm and a left bundle branch block with no evidence of ischemia, elevation in troponins at 0.631, elevated D-dimer with no evidence of PE or arterial dissection on CT?A and chest x-ray suspicious for acute CHF exacerbation. Echocardiogram from 2018 demonstrates segmental dysfunction with preserved ejection fraction, an estimated EF of 55%, mild aortic stenosis, mild focal aortic valve calcification, a mildly enlarged left atrium, septal motion consistent with IVCD and evidence of diastolic dysfunction. Considering current work-up patient will be admitted for chest pain and shortness of breath secondary to an acute CHF exacerbation; an updated echocardiogram will be obtained and patient will be diuresed to try and relieve his acute symptoms. 1) Acute CHF exacerbation Assessment - Chest x-ray; mild cardiomegaly and mild pulmonary vascular congestion. No evidence of pneumothorax or effusion - Echo from 2018; see above - EKG; NSR with LBBB with no evidence of ischemia - Respiratory rate of 22 - Edema about the lower extremities bilaterally - Diminished breath sounds on auscultation consistent with congestion Plan - Obtain echocardiogram - Initiate Lasix infusion at 40 mg IV every 8 - Continue metoprolol, losartan - Cardiology consulted 2) COPD Assessment - Chest x-ray more consistent with acute CHF exacerbation - CO2 within normal limits Plan - Continue ipratropium and albuterol inhalers 3) Atrial Fibrillation Assessment - No evidence of A. fib on EKG - Currently rate controlled on metoprolol - CHADS2-VASC score of 5 - Not currently on chronic anticoagulation Plan - Metoprolol continued - Initiated on enoxaparin SC 4) Atrial Flutter Assessment - Not currently evident on EKG - Currently rate controlled on metoprolol Plan - Telemetry monitoring initiated DVT prophylaxis - Enoxaparin SC Patient seen by Corey Rowe PA-C, under the supervision of Dr. Anne
[2020-12-18] MEDS: Losartan Potassium 25 MG Tablet PO (14:17)
[2020-12-18] MEDS: Pramipexole Di-HCl 0.5 MG Tablet PO (19:28)
--- NOTE | 2020-12-18 20:57 | CON.PCM_ITS ---
Problem List (1) NSTEMI (non-ST elevated myocardial infarction) Status: Acute (2) CAD (coronary artery disease) Status: Chronic Qualifiers: Coronary Disease-Associated Artery/Lesion type: [place] artery [place] vs. transplanted heart: [place] heart Associated angina: without angina Qualified Code(s): I25.10 - Atherosclerotic heart disease of [place] coronary artery without angina pectoris (3) CHF (congestive heart failure) Status: Acute (4) Cardiomyopathy Status: Chronic Qualifiers: Cardiomyopathy type: unspecified Qualified Code(s): I42.9 - Cardiomyopathy, unspecified (5) Atrial fibrillation and flutter Status: Acute (6) HLD (hyperlipidemia) Status: Chronic Qualifiers: Hyperlipidemia type: mixed hyperlipidemia Qualified Code(s): E78.2 - Mixed hyperlipidemia (7) Hypertension Status: Chronic Qualifiers: Hypertension type: essential hypertension Qualified Code(s): I10 - Essential (primary) hypertension (8) COPD (chronic obstructive pulmonary disease) Status: Chronic Qualifiers: (9) ANIBAL (obstructive sleep apnea) Status: Chronic Comment: Non-compliant (10) Pulmonary hypertension Status: Resolved (11) Cor pulmonale Status: Resolved (12) Vesico-colic fistula Status: Chronic (13) Morbid obesity with BMI of 45.0-49.9, adult Status: Chronic Reason for Consult Date of Consultation: 12/18/20 History of Present Illness: The patient is a 65 year old white male with a past cardiovascular history which is included atrial fibrillation/flutter status post synchronized biphasic DC cardioversion superimposed upon concerns of an underlying cardiomyopathy and congestive heart failure superimposed upon concerns of hyperlipidemia, hypertension, COPD, obstructive sleep apnea, pulmonary hypertension with cor pulmonale, vesico-folic fistula, and morbid obesity who is referred for evaluation of concerns of non-ST segment elevation IN. He states that he had chest discomfort in the center of his chest. It did not necessarily radiate. He has had chronic shortness of breath and dyspnea and he wears O2 nasal cannula at 4 L at home as maintenance therapy. He does not recall associated nausea, emesis, or diaphoresis. There was no report of loss of consciousness. He states he was evaluated by the EMS and treated with nitroglycerin sublingual which assisted to relieve his chest discomfort. He was subsequently placed in the hospital for further evaluation and care. He has had cardiac enzymes which have turned positive with respect to troponin I levels. His ECG is demonstrated sinus rhythm with a left bundle branch block-chronic. He had a chest x-ray and chest CT scan which suggested concerns of increased pulmonary vascularity/CHF and no evidence of thromboembolic disease or great vessel disease. A COVID-19 study was performed which was negative. He has been recommended for cardiovascular consultation for consideration for diagnostic cardiac catheterization. The patient states that he has undergone noninvasive studies in the past such as echocardiograms. He states he had an exercise tolerance test greater than 30 years ago. He has never undergone evaluation with diagnostic cardiac catheterization. He states he does follow with his pulmonary disease with Dr. Tello of pulmonology. He states he does wear O2 nasal cannula as noted above. He states at home he sleeps either in bed or in a chair. He notes that he cannot lie on his back and breathe comfortably. If he attempts to lie down he does so on his left side. Since being in the hospital he states he is unable to place his bed supine and breathe comfortably even with his O2 nasal cannula. He has also had marked chronic peripheral pitting edema of the lower extremities. [] Past Medical History Allergies/Adverse Reactions: Allergies cashew nut Allergy (Verified 12/18/20 06:54) Vomiting cortisone [Cortisone] Allergy (Verified 12/18/20 06:54) Itching-ONLY TO JOINT INJECTABLE KIND Pt states ok to take prednisone. RAJINDEREW Adverse Reaction (Uncoded 12/18/20 06:54) Vomiting Home Medications: Ambulatory Orders Medication Instructions Recorded Albuterol Inhaler [Ventolin Hfa] 1 - 2 puff INHALATION Q4H PRN PRN 04/09/18 Amlodipine [Norvasc] 10 mg PO QHS 04/09/18 Aspirin [Aspirin, Baby] 81 mg PO QHS 04/09/18 Atorvastatin Calcium [Lipitor] 40 mg PO QHS 04/09/18 Calcium (Elemental) [[place] 500] 500 mg PO DAILY@0800 04/09/18 Clopidogrel Bisulfate [Clopidogrel] 75 mg PO QHS 04/09/18 Ferrous Sulfate 325 mg PO QHS 04/09/18 Furosemide [Lasix] 40 mg PO BID 04/09/18 Ipratropium/Albuterol Sulfate 3 ml INHALATION TID 04/09/18 [Duoneb] Potassium Chloride Oral Tablet 10 meq PO DAILY #30 tab 04/17/18 [K-Dur] Guaifenesin [Mucinex] 800 mg PO BID PRN 09/23/18 losartan 50 mg tablet 50 mg PO QHS tab 10/10/18 ropinirole 0.5 mg tablet 2 tablet PO QHS PRN 30 Days #60 tab 02/13/19 Diltiazem HCl [Diltiazem 24Hr Cd] 240 mg PO QHS 12/18/20 Fluticasone Propion/Salmeterol 1 puff INHALATION BID 12/18/20 [Wixela 250-50 Inhub] Losartan Potassium [Cozaar] 25 mg PO DAILY 12/18/20 Meloxicam 15 mg PO DAILY 12/18/20 Metoprolol Succinate 50 mg PO QHS 12/18/20 Prednisone 10 mg PO DAILY 12/18/20 Past Medical History (Chronic Problems): Chronic Problems (Last Reviewed 05/23/19 @ 13:29 by Chantale Lockhart) COPD (chronic obstructive pulmonary disease) (Chronic) Chronic atrial fibrillation (Chronic) COPD (chronic obstructive pulmonary disease) (Chronic) CAD (coronary artery disease) (Chronic) Left bundle branch block (Chronic) CKD (chronic kidney disease), stage II (Chronic) Cardiomyopathy (Chronic) Atrial flutter (Chronic) Chronic respiratory failure (Chronic) Hypertension (Chronic) BPH (benign prostatic hypertrophy) (Chronic) HLD (hyperlipidemia) (Chronic) History of CVA (cerebrovascular accident) (Chronic) 2012 GERD (gastroesophageal reflux disease) (Chronic) Stasis dermatitis of both legs (Chronic) with hyperpigmentation ANIBAL (obstructive sleep apnea) (Chronic) Non-compliant Vesico-colic fistula (Chronic) Morbid obesity with BMI of 45.0-49.9, adult (Chronic) Surgical History: - - Cyst removal lower back, ulnar relocation right elbow. Psychiatric History: No pertinent psych hx - *Family History Maternal Family History: Family History (Last Reviewed 05/23/19 @ 13:29 by Chantale Lockhart) Mother Cancer Brother Sudden cardiac Father Heart disease History Items: Cancer - Lung and brain cancer Paternal Family History: Family History (Last Reviewed 05/23/19 @ 13:29 by Chantale Lockhart) Mother Cancer Brother Sudden cardiac Father Heart disease History Items: Heart Disease - father of a cardiomyopathy Sibling Family History: Family History (Last Reviewed 05/23/19 @ 13:29 by Chantale Lockhart) Mother Cancer Brother Sudden cardiac Father Heart disease History Items: - - brother dropped at 60 drinking a beer Smoking Status: Former smoker Tobacco Use: Cigarettes Review of Systems - Review of Systems General: Denies: Fever, Night Sweats, Fatigue Cardiovascular: Reports: Chest Discomfort, Chest Discomfort at Rest, Shortness of Breath, Shortness of Breath at Rest, Shortness of Breath with Exertion, Peripheral Edema. Denies: Orthopnea, PND, Palpitations, Lightheadedness, Dizziness, Near Syncope, Syncope Respiratory: Reports: Shortness of Breath. Denies: Cough, Sputum Production, Hemoptysis Gastrointestinal: Denies: Hematemesis, Hematochezia, Melena Genitourinary: Denies: Dysuria, Hematuria Skin: Denies: Rash Subjectve: This is a 65-year-old white male semirecumbent in bed to approximately 45 degrees who appears to be short of breath/dyspneic. Objective: Vital Signs Temp Pulse Resp BP Pulse Ox 98.9 F 79 20 H 154/51 H 99 12/18/20 15:40 12/18/20 19:39 12/18/20 18:56 12/18/20 15:40 12/18/20 15:40 Oxygen Flow Rate (L/min) 5 Oxygen Delivery Method Nasal Cannula Weight: 410 lb 8.011 oz Body Mass Index (BMI) 52.7 Finger Stick Blood Glucose 120 Intake and Output for Last 24 Hours 12/16/20 12/17/20 12/18/20 23:59 23:59 23:59 Intake Total 720 / 720 Output Total 1900 / 1900 Balance -1180 / -1180 General: Awake, Alert, Oriented x 3, Cooperative, Ill Appearing, Obese HEENT: Atraumatic, Normocephalic, PERRL, EOMI, Sclera Non Icteric Neck: Supple, Good ROM Lungs: Diminished Moody Bases Cardiovascular: Regular Rhythm, Normal S1, Normal S2 Abdomen: Bowel Sounds Present, Soft Extremities: Severe RLE Edema, Severe LLE Edema Neurological: No Focal Motor or Sensory Deficit Psych/Mental Status: Appropriate 12/18/20 07:24: WBC 12.0 H, RBC 3.66 L, Hgb 10.6 L, Hct 34.6 L, MCV 94.5 H, MCH 29.0, MCHC 30.6 L, Plt Count 215, MPV 9.7, Immature Gran % (Auto) 0.500, Neut % (Auto) 84.9 H, Lymph % (Auto) 4.9 L, [place] % (Auto) 7.2, Eos % (Auto) 2.2, Baso % (Auto) 0.3, Absolute Neuts (auto) 10.2 H, Nucleated RBC % 0 12/18/20 07:24: D-Dimer Quant (PE/DVT) 1.05 H* 12/18/20 07:24: Sodium 141, Potassium 3.8, Chloride 110 H, Carbon Dioxide 29.0, Anion Gap 2 L, BUN 23 H, Creatinine 1.29, Est GFR (MDRD) Af Amer 71, Est GFR (MDRD) Non-Af 59 L, BUN/Creatinine Ratio 17.8, Glucose 157 H, Calcium 8.5, Troponin I 0.157 H 12/18/20 07:24: B-Natriuretic Peptide 98.1 12/18/20 11:05: Troponin I 0.631 H* 12/18/20 13:10: Troponin I 1.230 H* Rhythm: Sinus rhythm EKG: Sinus rhythm; left bundle branch block ECHO: Interpretation Summary The study was technically difficult. Contrast injection was performed. Based upon the 2D echocardiographic and contrast enhanced images obtained there appears to be grossly normal left ventricular size, wall motion, and systolic function. The estimated ejection fraction is 55 %. Septal motion consistent with IVCD. The left atrium is mildly enlarged. Trivial mitral valve insufficiency. Trivial tricuspid valve insufficiency. Right ventricular systolic pressure estimated to be 50 mmHg c/w pulmonary hypertension. There is evidence of diastolic dysfunction. CXR: IMPRESSION: Suspicious acute CHF. HRCT chest will help clarify if pneumonia is a clinical consideration. Electronically Signed: Deven Terrell MD at 8:[address] Scan: FINDINGS: 1.4 x 1 cm posterior right thyroid lobe hypodense nodule. There is limited enhancement of the main pulmonary artery and right and left pulmonary arteries. There is limited enhancement of the bilateral peripheral pulmonary arteries. There is no demonstrated pulmonary embolism. Normal pleura. Mild emphysema. There is diffuse ground glass attenuation of the pulmonary parenchyma. 5 mm right middle lobe nodule on series 2 image 121. There are scattered 2-3 mm pulmonary nodules and small calcified granulomas. There is respiratory motion at the lung bases, limiting evaluation. Mild aortic atherosclerotic disease. There is no demonstrated aortic dissection. Mild cardiomegaly. Marked coronary artery calcifications. There is nonspecific mediastinal adenopathy measuring up to 1.5 cm in the precarinal region No axillary or bulky hilar adenopathy. Normal visualized trachea and bronchi. Normal chest wall structures. There are degenerative changes of thoracic spine. Normal visualized upper abdomen. CT/CTA Chest W/WO Contrast IMPRESSION: 1. No pulmonary embolism or arterial dissection. 2. There is diffuse groundglass attenuation of the pulmonary parenchyma, this may represent pulmonary edema. Mild cardiomegaly. 3. Nonspecific mediastinal adenopathy. 4. 1.4 x 1 cm posterior right thyroid lobe hypodense nodule. Thyroid ultrasound can be obtained for further characterization. 5. Scattered pulmonary nodules measuring up to 5 mm. If high risk for developing pulmonary malignancy continued annual chest CT is recommended. Electronically Signed: Mell Montalvo MD at 9:37 EDT Assessment/Plan 1. Non-ST segment elevation IN The patient has had cardiovascular risk factors, symptoms concerning for underlying CAD, and abnormal cardiac enzymes concerning for an acute coronary syndrome. At the present time he appears to be symptomatically improved with respect to his chest discomfort. He is being monitored. He can continue medical management. Ideally the patient would be recommended for further evaluation with diagnostic cardiac catheterization. However at the moment the patient does not appear, secondary to his cardiopulmonary status, to be able to lie supine, even with his oxygen, comfortably to be able to proceed safely with such a procedure. Thus at the present time he will need to continue his medical management until if and when his clinical course allows him to proceed in such a manner. 2. Cardiomyopathy The patient has been described in the past as having a cardiomyopathy. At the moment based upon his echocardiogram he appears to have overall preserved LV systolic function/LVEF. The patient will need to continue medical therapy as necessary. 3. CHF The patient has a history of CHF. At the moment is unclear whether his CHF may be related to a hypertension with cor pulmonale and right heart failure if he does have overall preserved left ventricular systolic function/LVEF unless this is diastolic mediated. At the present time he will need to continue medical management. This does include his diuretic therapy. Ideally undergoing an evaluation with a diagnostic cardiac catheterization would be reasonable to evaluate as to whether or not he does have any underlying history of CAD contributing to any of his cardiovascular issues that requires revascularization therapy that would help with his overall cardiovascular status. 4. Atrial fibrillation/flutter He has a history of atrial fibrillation/flutter. He has undergone synchronized biphasic DC cardioversion in the past. At the moment he appears remaining in sinus rhythm. He is not been on long-term oral systemic anticoagulant therapy. 5. Hyperlipidemia He should continue medical therapy as deemed appropriate. 6. Hypertension His blood pressure can be followed and his medications can be adjusted as necessary. 7. COPD The patient has a significant history of COPD. He does wear O2 nasal cannula at home. He may need input from his pulmonology team to assist with ptimization of his pulmonary management in order to allow him to proceed with cardiovascular studies such as diagnostic cardiac catheterization. 8. Obstructive sleep apnea This can be another reason for concerns of his pulmonary hypertension which could lead to cor pulmonale and right heart failure. He will need to continue evaluation care per his primary care physician and his pulmonology team. 9. Vesicocolic fistula The patient states he has a vesicocolic fistula. He states this makes it difficult to tell what his true urine output he is. 10. Obesity Unfortunately the patient is morbidly obese. This creates another challenge with respect to performing diagnostic studies on the patient. Comment: Overall, at the present time, the patient will continue to be monitored, he will continue medical therapy, if his clinical status improves to the point where he can lie supine and from a respiratory standpoint safely undergo further evaluation with diagnostic cardiac catheterization and whether this will be able to be performed at [facility] or he may require further evaluation and care at a tertiary/quaternary cardiovascular center. Note, the patient does state that he no matter what his findings are he will never undergo open heart surgery and that is a DNR patient The patient's case has been discussed and reviewed with Dr. Anne.
[2020-12-18] MEDS: Atorvastatin Calcium 40 MG Tablet PO (21:45)
[2020-12-18] MEDS: amLODIPine 10 MG Tablet PO (21:46)
[2020-12-18] MEDS: Metoprolol(XL)Succ 50 MG Tablet PO (21:46)
[2020-12-18] MEDS: dilTIAZem CD 240 MG Capsule PO (21:46)
[2020-12-18] MEDS: Aspirin 81 MG TAB.CHEW PO (21:46)
[2020-12-18] MEDS: Losartan Potassium 50 MG Tablet PO (21:46)
[2020-12-18] MEDS: Clopidogrel Bisulfate 75 MG Tablet PO (21:47)
[2020-12-19] VITALS (15 sets, daily range): BP systolic 125–150; BP diastolic 52–98; PULSE 52–74; RESP 14–20; TEMP 36.6–37.3; O2SAT 90–99
[2020-12-19] MEDS: 0.9% Saline Lock 10 ML Syringe IV ×2 (05:13→15:22)
[2020-12-19] MEDS: Furosemide 40 MG/4 ML Vial IV (05:13)
[2020-12-19] MEDS: Albuterol 2.5 MG/3 ML VIAL.NEB. INHALATION (05:18)
[2020-12-19 07:34] LABS: Anion Gap 3 (5-15); BUN 19 mg/dL (7-18); BUN/Creat Ratio 18.3 RATIO (10-20); Calcium,Total 8.9 mg/dL (8.5-10.1); Chloride 108 mmol/L (98-107); Creatinine, Serum 1.04 mg/dL (0.70-1.30); EST Glomerular Filtration Rate 76 mL/min (>60); Est Glom Filt Rate - Afr Amer 92 mL/min (>60); Estimated Creatinine Clearance 80.14 ml/min; Glucose 144 mg/dL (74-106); Potassium 3.8 mmol/L (3.5-5.1); Sodium Level 141 mmol/L (136-145)
[2020-12-19] MEDS: Ipratropium/Albuterol Sulfate 3 ML AMPUL.NEB INHALATION ×3 (07:40→19:00)
[2020-12-19] MEDS: Potassium Chloride Oral Tablet 20 MEQ 40 MEQ PO ×3 (08:05→16:38)
[2020-12-19] MEDS: metOLazone 5 MG Tablet PO (09:33)
--- NOTE | 2020-12-19 09:46 | CASEMGMT ---
KYE [place] NOTE: Insurance review for hospitals In-network with [facility] Insurance if transfer is recommended is as follows: [facility], [place], [facility], [facility], [facility], [facility]), and . Love MERCADO RN CM
[2020-12-19] MEDS: Furosemide 500 MG in Empty Viaflex 50 mL 1 EACH CONT INF ×2 (09:51→16:22)
[2020-12-19] MEDS: Losartan Potassium 50 MG Tablet PO ×2 (09:58→22:09)
--- NOTE | 2020-12-19 11:01 | PCM.PN.CARD ---
Subjectve: The patient remains short of breath and dyspneic. He states he was able to sleep in his bed last night at approximately 45 degrees. He cannot lie supine on his back. He continues with marked lower extremity peripheral pitting edema. Objective: Vital Signs Temp Pulse Resp BP Pulse Ox 99.1 F 66 16 136/63 H 97 12/19/20 09:27 12/19/20 09:27 12/19/20 09:27 12/19/20 09:27 12/19/20 09:27 Oxygen Flow Rate (L/min) 4 Oxygen Delivery Method Nasal Cannula Weight: 398 lb 13.059 oz Body Mass Index (BMI) 52.7 Finger Stick Blood Glucose 120 Intake and Output for Last 24 Hours 12/17/20 12/18/20 12/19/20 23:59 23:59 23:59 Intake Total 720 / 960 290 / 290 Output Total 1900 / 2950 2001 Balance -1180 / -1990 -1712 / -1712 General: Awake, Alert, Oriented x 3, Cooperative, Obese HEENT: Atraumatic, Normocephalic, PERRL, EOMI, Sclera Non Icteric Neck: Supple, Good ROM Lungs: Diminished Moody Bases Cardiovascular: Regular Rhythm, Normal S1, Normal S2 Abdomen: Bowel Sounds Present, Soft Extremities: Severe RLE Edema, Severe LLE Edema Psych/Mental Status: Appropriate 12/18/20 11:05: Troponin I 0.631 H* 12/18/20 13:10: Troponin I 1.230 H* 12/19/20 06:25: Sodium 141, Potassium 3.8, Chloride 108 H, Carbon Dioxide 30.0, Anion Gap 3 L, BUN 19 H, Creatinine 1.04, Est GFR (MDRD) Af Amer 92, Est GFR (MDRD) Non-Af 76, BUN/Creatinine Ratio 18.3, Glucose 144 H, Calcium 8.9 Rhythm: Sinus rhythm Medical Necessity - Tobacco Use Smoking Status: Former smoker Tobacco Use: Cigarettes Assessment/Plan 1. Non-ST segment elevation [place] The patient has had cardiovascular risk factors, symptoms concerning for underlying CAD, and abnormal cardiac enzymes concerning for an acute coronary syndrome. At the present time he appears to be symptomatically improved with respect to his chest discomfort. He is being monitored. He can continue medical management. Ideally the patient would be recommended for further evaluation with diagnostic cardiac catheterization. However at the moment the patient does not appear, secondary to his cardiopulmonary status, to be able to lie supine, even with his oxygen, comfortably to be able to proceed safely with such a procedure. At the moment the patient could not not lie supine comfortably from a respiratory standpoint. Thus he will need to continue medical management. 2. Cardiomyopathy The patient has been described in the past as having a cardiomyopathy. At the moment based upon his echocardiogram he appears to have overall preserved LV systolic function/LVEF. The patient will need to continue medical therapy as necessary. 3. CHF The patient has a history of CHF. At the moment is unclear whether his CHF may be related to a hypertension with cor pulmonale and right heart failure if he does have overall preserved left ventricular systolic function/LVEF unless this is diastolic mediated. At the present time he will need to continue medical management. This does include his diuretic therapy. Being placed on IV furosemide continuous infusion. Ideally undergoing an evaluation with a diagnostic cardiac catheterization would be reasonable to evaluate as to whether or not he does have any underlying history of CAD contributing to any of his cardiovascular issues that requires revascularization therapy that would help with his overall cardiovascular status. However, as noted above, the patient cannot lie supine at this time safely from a respiratory standpoint. Thus he will need to continue medical management. 4. Atrial fibrillation/flutter He has a history of atrial fibrillation/flutter. He has undergone synchronized biphasic DC cardioversion in the past. At the moment he appears remaining in sinus rhythm. He is not been on long-term oral systemic anticoagulant therapy. 5. Hyperlipidemia He should continue medical therapy as deemed appropriate. 6. Hypertension His blood pressure can be followed and his medications can be adjusted as necessary. 7. COPD The patient has a significant history of COPD. He does wear O2 nasal cannula at home. 8. Obstructive sleep apnea This can be another reason for concerns of his pulmonary hypertension which could lead to cor pulmonale and right heart failure. He will need to continue evaluation care per his primary care physician and his pulmonology team. 9. Vesicocolic fistula The patient states he has a vesicocolic fistula. He states this makes it difficult to tell what his true urine output he is. 10. Obesity Unfortunately the patient is morbidly obese. This creates another challenge with respect to performing diagnostic studies on the patient. Comment: Overall, the present time, based upon the patient's pulmonary status and not being able to lie supine, even with supplemental O2, comfortably and safely it does not appear that he is able to proceed with a diagnostic cardiac catheterization at this time. He will continue medical therapy. The patient's case has been discussed and reviewed with Dr. Anne.
--- NOTE | 2020-12-19 11:10 | CASEMGMT ---
RN NANCIE Face to Face with patient for initial transition planning/care coordination assessment. RN CM introduced self and role at [facility]. Patient lying in bed, alert and oriented. Patient willing to participate in assessment and is able to answer all questions appropriately. Care providers, pharmacy, and demographics verified. Patient wishes to discharge home, denies need for home health at this time. Patient states he has no further needs or concerns at this time. CM to follow for discharge planning needs that may arise. 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 Patient states he is independent and able to ambulate stairs. Transportation: self/hospital van or public transport DME/HHC: Patient states he has cane, walker, grab bars, nebulizer, home oxygen at 4 lpm with portability through [facility]. Patient denies previous SNF or HHC. Disposition Plan: Patient to discharge home with family support and follow-up plans in place. Jannet MERCADO, RN, CM
[2020-12-19] MEDS: Ferrous Sulfate 325 MG Tablet PO (11:47)
[2020-12-19] MEDS: Isosorbide Mononitrate 60 MG Tablet PO (11:47)
--- NOTE | 2020-12-19 15:06 | NURSING ---
STUDENT NURSE CHARTING REVIEWED BY THIS RN.
--- NOTE | 2020-12-19 16:24 | ED.RN ---
WHEN HANGING LASIX DRIP AT 9 AM, BAG SPIKED BY STUDENT NURSE, SOME MEDICATION TO RUN ONTO THE FLOOR. KYE ALBA INFORMED. DRIP MONITORED, CALL FOR NEW BAG FROM PHARMACY.
--- NOTE | 2020-12-19 18:26 | PCM.PROGNOTE ---
Patient Problems: Active and Suspected Problems (Last Reviewed 05/23/19 @ 13:29 by Chantale Lockhart) CHF (congestive heart failure) (Acute) Chest pain (Acute) NSTEMI (non-ST elevated myocardial infarction) (Acute) Atrial fibrillation and flutter (Acute) Shortness of breath (Acute) Subjective: Patient was seen and examined today, I discussed his care with cardiology today. Late this afternoon I asked the patient to wear his nasal cannula oxygen in his nose-he had been wearing it over his upper lip pointing outward, it appears as of the time of this dictation that the patient is stable on 2 L of nasal cannula oxygen, I will check a pulse ox and possibly an ABG on room air later this evening. I decided to place the patient on a Lasix drip for better diuresis, patient requested that it be turned off overnight so that he would not have to void in the middle of the night and I agreed. I gave the patient a dose of Zaroxolyn today, I stopped his amlodipine because he was also on Cardizem, and I placed him on an increased dose of nitrates. Patient had complained of intermittent chest pain today which only lasted a few seconds-I told him this was probably not coronary in nature. Objective: On examination he appeared in good health and spirits, his appearance was unkempt. Vital signs as documented. Skin warm and dry and without overt rashes. Neck without JVD, neck was supple, trachea midline, thyroid was normal. Lungs clear bilaterally, normal air movement was noted. Heart exam notable for regular rhythm, normal sounds and absence of murmurs, rubs or gallops. Abdomen unremarkable and without evidence of organomegaly, masses, or abdominal aortic enlargement. Bowel sounds are present, abdomen is not distended. Extremities evidence of severe lymphedema and edema was noted in both lower legs, no cyanosis was noted, no clubbing was noted. Neuro: Cranial nerves II through XII are grossly intact, no focal motor deficits were noted, sensation to light touch and pinprick intact, motor exam 5/5 throughout. Psych: Patient is alert and oriented x3, he does not appear anxious or depressed, he does not appear agitated. - Physical Exam Vitals/I&O's: Vital Signs Temp Pulse Resp BP Pulse Ox 98.2 F 68 14 131/98 H 90 12/19/20 15:15 12/19/20 15:15 12/19/20 15:15 12/19/20 15:15 12/19/20 18:23 Oxygen Flow Rate (L/min) 4 Oxygen Delivery Method Room Air Weight: 180.9 kg Body Mass Index (BMI) 52.7 Finger Stick Blood Glucose 120 Intake and Output for Last 24 Hours 12/17/20 12/18/20 12/19/20 23:59 23:59 23:59 Intake Total 720 / 960 296.5 / 296.5 Output Total 1900 / 2950 2552 / 2552 Balance -1180 / -1989 -2255.5 / -2255.5 Microbiology Past 72 Hours 12/18/20 07:09 Mucosa - Nose SARS-CoV-2 Antigen (Rapid) - Final Laboratory Results 12/19/20 06:25: Sodium 141, Potassium 3.8, Chloride 108 H, Carbon Dioxide 30.0, Anion Gap 3 L, BUN 19 H, Creatinine 1.04, Estim Creat Clear Calc 80.14, Est GFR (MDRD) Af Amer 92, Est GFR (MDRD) Non-Af 76, BUN/Creatinine Ratio 18.3, Glucose 144 H, Calcium 8.9 Current Medications Acetaminophen (Acetaminophen 325 Mg Tablet) 650 mg PO Q6H PRN PRN PRN Reason: Pain Score 1-10/Temp > 100.7 F Albuterol Sulfate (Albuterol 2.5 Mg/3 Ml Vial.Neb.) 2.5 mg INHALATION Q2H PRN PRN PRN Reason: DYSPNEA Last Admin: 12/19/20 05:18 Dose: 2.5 mg Documented by: Albuterol/Ipratropium (Ipratropium/Albuterol Sulfate 3 Ml Ampul.Neb) 3 ml INHALATION Q6HWA.RT [facility] Last Admin: 12/19/20 14:02 Dose: 3 ml Documented by: Aspirin (Aspirin 81 Mg Tab.Chew) 81 mg PO QHS [facility] Last Admin: 12/18/20 21:46 Dose: 81 mg Documented by: Atorvastatin Calcium (Atorvastatin Calcium 40 Mg Tablet) 40 mg PO QHS [facility] Last Admin: 12/18/20 21:45 Dose: 40 mg Documented by: Clopidogrel Bisulfate (Clopidogrel Bisulfate 75 Mg Tablet) 75 mg PO QHS [facility] Last Admin: 12/18/20 21:47 Dose: 75 mg Documented by: Diltiazem HCl (Diltiazem Cd 240 Mg Capsule) 240 mg PO QHS [facility] Last Admin: 12/18/20 21:46 Dose: 240 mg Documented by: Ferrous Sulfate (Ferrous Sulfate 325 Mg Tablet) 325 mg PO 1200 [facility] Last Admin: 12/19/20 11:47 Dose: 325 mg Documented by: Sodium Chloride () 250 mls @ 15 mls/hr IV .[id number] PRN PRN Reason: Saline Flush Sodium Chloride () 250 mls @ 15 mls/hr IV .[id number] PRN PRN Reason: Additional IVPB Infusion Furosemide 500 mg/ N/A 50 mls @ 1 mls/hr CONT INF .Q50H [facility] Last Admin: 12/19/20 16:22 Dose: 10 mg/hr, 1 mls/hr Documented by: Isosorbide Mononitrate (Isosorbide Mononitrate 60 Mg Tablet) 60 mg PO DAILY [facility] Last Admin: 12/19/20 11:47 Dose: 60 mg Documented by: Losartan Potassium (Losartan Potassium 50 Mg Tablet) 50 mg PO BID [facility] Last Admin: 12/19/20 09:58 Dose: 50 mg Documented by: Metoprolol Succinate (Metoprolol(Xl)Succ 50 Mg Tablet) 50 mg PO QHS [facility] Last Admin: 12/18/20 21:46 Dose: 50 mg Documented by: Ondansetron HCl (Ondansetron 4 Mg/2 Ml Vial) 4 mg IV Q8H PRN PRN PRN Reason: NAUSEA/VOMITING Potassium Chloride (Potassium Chloride Oral Tablet 20 Meq) 40 meq PO BIDCM [facility] Last Admin: 12/19/20 16:38 Dose: 40 meq Documented by: Pramipexole Dihydrochloride (Pramipexole Di-Hcl 0.5 Mg Tablet) 0.5 mg PO QHS [facility] Last Admin: 12/18/20 19:28 Dose: 0.5 mg Documented by: Sodium Chloride (0.9% Saline Lock 10 Ml Syringe) 10 - 40 ml IV UD PRN PRN Reason: SALINE FLUSH Last Admin: 12/19/20 15:22 Dose: 20 ml Documented by: Medical Necessity - Tobacco Use Smoking Status: Former smoker Tobacco Use: Cigarettes Assessment/Plan All Active Problems (Last Reviewed 05/23/19 @ 13:29 by Chantale Lockhart) CHF (congestive heart failure) (Acute) Chest pain (Acute) NSTEMI (non-ST elevated myocardial infarction) (Acute) Atrial fibrillation and flutter (Acute) Shortness of breath (Acute) Streptococcal pneumonia (Resolved) History of cardioversion (Resolved ~09/07/17) Hx of decompression of ulnar nerve (Resolved) Pulmonary hypertension (Resolved) Cor pulmonale (Resolved) Cellulitis of back [any part except buttock] (Resolved) NSTEMI (non-ST elevated myocardial infarction) (Resolved) Non-STEMI (non-ST elevated myocardial infarction) (Resolved) #1 acute diastolic congestive heart failure-new onset #2 pulmonary hypertension-moderate #3 chronic hypoxic respiratory failure - we will continue to wean oxygen if possible #4 chronic obstructive pulmonary disease #5 morbid obesity #6 severe lower extremity lymphedema #7 cardiomyopathy-type unknown #8 essential hypertension #9 obstructive sleep apnea-noncompliant with CPAP #10 past history of atrial fibrillation-currently in sinus rhythm #11 [id number] will probably undergo cardiac catheterization tomorrow if he is able to lie flat #12 hyperlipidemia Inpatient E&M: [id number] Subs Hosp L2
[2020-12-19 18:56] LABS: Allen Test Positive; Base Excess 3 mmol/L (-2 to +2); Bicarbonate 27.5 mmol/L (22-26); Blood Gas Specimen Type ART; O2 Delivery Device Room Air; PO2 51 mmHG (75-100); SITE R Radial; SO2 86 % (95-99); Total Carbon Dioxide 29 mmol/L; pCO2 42.7 mmHg (35-45); pH 7.42 (7.35-7.45)
[2020-12-19] MEDS: Aspirin 81 MG TAB.CHEW PO (22:08)
[2020-12-19] MEDS: Metoprolol(XL)Succ 50 MG Tablet PO (22:09)
[2020-12-19] MEDS: Atorvastatin Calcium 40 MG Tablet PO (22:10)
[2020-12-19] MEDS: dilTIAZem CD 240 MG Capsule PO (22:10)
[2020-12-19] MEDS: Clopidogrel Bisulfate 75 MG Tablet PO (22:11)
[2020-12-19] MEDS: Pramipexole Di-HCl 0.5 MG Tablet PO (22:11)
[2020-12-20] VITALS (7 sets, daily range): BP systolic 109–164; BP diastolic 61–71; PULSE 58–74; RESP 16–20; TEMP 36.7–36.8; O2SAT 96–98
[2020-12-20] MEDS: Nystatin Powder 15gm Bottle 1 APPLIC TOPICAL (06:27)
[2020-12-20] MEDS: Ipratropium/Albuterol Sulfate 3 ML AMPUL.NEB INHALATION (07:00)
[2020-12-20 07:12] LABS: Anion Gap 5 (5-15); BUN 26 mg/dL (7-18); Calcium,Total 9.2 mg/dL (8.5-10.1); Chloride 106 mmol/L (98-107); Creatinine, Serum 1.37 mg/dL (0.70-1.30); EST Glomerular Filtration Rate 55 mL/min (>60); Est Glom Filt Rate - Afr Amer 67 mL/min (>60); Estimated Creatinine Clearance 60.83 ml/min; Glucose 133 mg/dL (74-106); Potassium 3.9 mmol/L (3.5-5.1); Sodium Level 139 mmol/L (136-145)
--- NOTE | 2020-12-20 09:48 | CASEMGMT ---
Pt to go home by [facility] rolan and states has no one to bring him his portable tank in, call to Negra at [facility] to notify that pt will need portable tank to get home and she is aware that pt is leaving at 12N by rolan, voices understanding. Lexa FISHMAN CM
[2020-12-20] MEDS: Menthol/Lanolin/Calamine/Znox 113 GM Tube 1 APPLIC TOPICAL (09:50)
[2020-12-20] MEDS: Isosorbide Mononitrate 60 MG Tablet PO (09:50)
[2020-12-20] MEDS: Losartan Potassium 50 MG Tablet PO (09:50)
[2020-12-20] MEDS: Potassium Chloride Oral Tablet 20 MEQ 40 MEQ PO (09:50)
--- NOTE | 2020-12-20 10:05 | PCM.DC ---
- Discharge Diagnoses Current Active Problems: Current Active and Chronic Problems (Last Reviewed 05/23/19 @ 13:29 by Chantale Lockhart) CHF (congestive heart failure) (Acute) Chest pain (Acute) NSTEMI (non-ST elevated myocardial infarction) (Acute) Atrial fibrillation and flutter (Acute) Shortness of breath (Acute) COPD (chronic obstructive pulmonary disease) (Chronic) Chronic atrial fibrillation (Chronic) COPD (chronic obstructive pulmonary disease) (Chronic) CAD (coronary artery disease) (Chronic) Left bundle branch block (Chronic) CKD (chronic kidney disease), stage II (Chronic) Cardiomyopathy (Chronic) Atrial flutter (Chronic) Chronic respiratory failure (Chronic) Hypertension (Chronic) BPH (benign prostatic hypertrophy) (Chronic) HLD (hyperlipidemia) (Chronic) History of CVA (cerebrovascular accident) (Chronic) 2012 GERD (gastroesophageal reflux disease) (Chronic) Stasis dermatitis of both legs (Chronic) with hyperpigmentation ANIBAL (obstructive sleep apnea) (Chronic) Non-compliant Vesico-colic fistula (Chronic) Morbid obesity with BMI of 45.0-49.9, adult (Chronic) You will use the following diet at home:: No restrictions Your liquids should be the consistency of: Regular/Thin Discharge Activity: Return to Normal Activity Weight Bearing Status: Full weight bearing Allergies/Adverse Reactions: Allergies cashew nut Allergy (Verified 12/18/20 06:54) Vomiting cortisone [Cortisone] Allergy (Verified 12/18/20 06:54) Itching-ONLY TO JOINT INJECTABLE KIND Pt states ok to take prednisone. RAJINDEREW Adverse Reaction (Uncoded 12/18/20 06:54) Vomiting Medications to take at Discharge Albuterol Inhaler [Ventolin Hfa] 1 - 2 puff INHALATION Q4H PRN PRN 04/09/18 Aspirin [Aspirin, Baby] 81 mg PO QHS 04/09/18 Atorvastatin Calcium [Lipitor] 40 mg PO QHS 04/09/18 Calcium (Elemental) [[place] 500] 500 mg PO DAILY@0800 04/09/18 Clopidogrel Bisulfate [Clopidogrel] 75 mg PO QHS 04/09/18 Ferrous Sulfate 325 mg PO QHS 04/09/18 Guaifenesin [Mucinex] 800 mg PO BID PRN 09/23/18 ropinirole 0.5 mg tablet 2 tablet PO QHS PRN 30 Days #60 tab 02/13/19 Fluticasone Propion/Salmeterol [Wixela 250-50 Inhub] 1 puff INHALATION BID 12/18/20 Metoprolol Succinate 50 mg PO QHS 12/18/20 Prednisone 10 mg PO DAILY 12/18/20 Furosemide [Lasix] 40 mg PO UD #120 tablet 12/20/20 Ipratropium/Albuterol Sulfate [Duoneb] 3 ml INHALATION 4X/DAY #1 12/20/20 Isosorbide Mononitrate [Imdur] 60 mg PO DAILY #30 tablet 12/20/20 Losartan Potassium [Cozaar] 50 mg PO BID #60 tablet 12/20/20 Potassium Chloride Oral Tablet [K-Dur] 40 meq PO BIDCM #120 tablet 12/20/20 The following prescriptions were given: Losartan Potassium [Cozaar] 50 mg PO BID #60 tablet Transmission Status: Pending to [facility] Ipratropium/Albuterol Sulfate [Duoneb] 3 ml INHALATION 4X/DAY #1 Isosorbide Mononitrate [Imdur] 60 mg PO DAILY #30 tablet Transmission Status: Pending to [facility] Potassium Chloride Oral Tablet [K-Dur] 40 meq PO BIDCM #120 tablet Transmission Status: Pending to [facility] Furosemide [Lasix] 40 mg PO UD #120 tablet Transmission Status: Pending to [facility] Primary Care Physician: Hernan Murray MD [Primary Care Provider] - Please follow up with your Primary Care Physician in: in 7 days Test Results: Test results from this visit will be discussed in further detail at your follow-up appointment, if applicable. Please Follow Up With: Cardiology When: in 3 weeks
--- NOTE | 2020-12-20 10:41 | PCM.PN.CARD ---
Subjectve: The patient is awake and alert. He denies ongoing chest discomfort. He still cannot lie supine and breathe comfortably. He continues with marked lower extremity peripheral pitting edema. Objective: Vital Signs Temp Pulse Resp BP Pulse Ox 98.0 F 71 18 109/64 98 12/20/20 09:30 12/20/20 09:30 12/20/20 09:30 12/20/20 09:30 12/20/20 09:30 Oxygen Flow Rate (L/min) 3 Oxygen Delivery Method Nasal Cannula Weight: 395 lb 1.094 oz Body Mass Index (BMI) 52.7 Finger Stick Blood Glucose 120 Intake and Output for Last 24 Hours 12/18/20 12/19/20 12/20/20 23:59 23:59 23:59 Intake Total 720 / 960 303.55 / 543.55 243.33 / 243.33 Output Total 1900 / 2950 4002 / 4802 1125 / 1125 Balance -1180 / -1990 -3698.45 / -4258.45 -881.67 / -881.67 General: Awake, Alert, Oriented x 3, Cooperative, No Acute Distress, Obese HEENT: Atraumatic, Normocephalic, PERRL, EOMI, Sclera Non Icteric Neck: Supple, Good ROM, No JVD Lungs: Expiratory Wheezes-Moody Cardiovascular: Regular Rhythm, Normal S1, Normal S2 Abdomen: Bowel Sounds Present, Soft Extremities: Severe RLE Edema, Severe LLE Edema Psych/Mental Status: Appropriate 12/19/20 18:51: pH 7.42, Bicarbonate Actual 27.5 H, Base Excess 3 H, O2 Saturation 86 L, ABG pCO2 42.7, ABG pO2 51 L, Placido Test Positive 12/20/20 04:40: Sodium 139, Potassium 3.9, Chloride 106, Carbon Dioxide 28.0, Anion Gap 5, BUN 26 H, Creatinine 1.37 H, Est GFR (MDRD) Af Amer 67, Est GFR (MDRD) Non-Af 55 L, BUN/Creatinine Ratio 19.0, Glucose 133 H, Calcium 9.2 Rhythm: Sinus rhythm Medical Necessity - Tobacco Use Smoking Status: Former smoker Tobacco Use: Cigarettes Assessment/Plan 1. Non-ST segment elevation OK The patient has had cardiovascular risk factors, symptoms concerning for underlying CAD, and abnormal cardiac enzymes concerning for an acute coronary syndrome. At the present time he appears to be symptomatically improved with respect to his chest discomfort. He is being monitored. He can continue medical management. At the present time the patient cannot lie supine comfortably based upon his underlying respiratory status. A lengthy conversation was held with the patient with respect to his cardiovascular course. At the present time he states that he prefers to continue conservative medical therapy and he does not want to proceed with any attempts at invasive evaluation/care. 2. Cardiomyopathy The patient has been described in the past as having a cardiomyopathy. At the moment based upon his echocardiogram he appears to have overall preserved LV systolic function/LVEF. The patient will need to continue medical therapy as necessary. 3. CHF The patient has a history of CHF. At the moment is unclear whether his CHF may be related to a hypertension with cor pulmonale and right heart failure if he does have overall preserved left ventricular systolic function/LVEF unless this is diastolic mediated. At the present time he will need to continue medical management. This does include his diuretic therapy. 4. Atrial fibrillation/flutter He has a history of atrial fibrillation/flutter. He has undergone synchronized biphasic DC cardioversion in the past. At the moment he appears remaining in sinus rhythm. He is not been on long-term oral systemic anticoagulant therapy. 5. Hyperlipidemia He should continue medical therapy as deemed appropriate. 6. Hypertension His blood pressure can be followed and his medications can be adjusted as necessary. 7. COPD The patient has a significant history of COPD. He does wear O2 nasal cannula at home. 8. Obstructive sleep apnea This can be another reason for concerns of his pulmonary hypertension which could lead to cor pulmonale and right heart failure. He will need to continue evaluation care per his primary care physician and his pulmonology team. 9. Vesicocolic fistula The patient states he has a vesicocolic fistula. He states this makes it difficult to tell what his true urine output he is. 10. Obesity Unfortunately the patient is morbidly obese. This creates another challenge with respect to performing diagnostic studies on the patient. Comment: Overall, the patient states that he does feel improved since his hospitalization with respect to his chest discomfort and his breathing. However he states he does not believe his breathing will ever be normal to the point where he can lie supine comfortably to undergo a procedure such as a diagnostic cardiac catheterization. He states he has given his clinical course thought and at the present time he request continued medical management and not to proceed with any invasive evaluation or care. The patient's case has been discussed and reviewed with Dr. Anne.
--- NOTE | 2020-12-20 18:45 | DS.PCM_ITS ---
Discharge Date and Diagnosis - Problem List Patient Problems: Active and Suspected Problems (Last Reviewed 05/23/19 @ 13:29 by Chantale Lockhart) CHF (congestive heart failure) (Acute) Chest pain (Acute) NSTEMI (non-ST elevated myocardial infarction) (Acute) Atrial fibrillation and flutter (Acute) Shortness of breath (Acute) Date of Admission: 12/18/20 Date of Discharge: 12/20/20 - Primary Discharge Diagnosis Acute Problems: Active Problems (Last Reviewed 05/23/19 @ 13:29 by Chantale Lockhart) #1 acute diastolic congestive heart failure-new onset #2 pulmonary hypertension-moderate #3 chronic hypoxic respiratory failure #4 chronic obstructive pulmonary disease #5 morbid obesity #6 severe lower extremity lymphedema #7 cardiomyopathy-type unknown #8 essential hypertension #9 obstructive sleep apnea-noncompliant with CPAP #10 past history of atrial fibrillation #11 non-STEMI #12 hyperlipidemia #13 noncompliance with medical advice - Secondary Discharge Diagnosis Chronic Problems: Chronic Problems (Last Reviewed 05/23/19 @ 13:29 by Chantale Lockhart) COPD (chronic obstructive pulmonary disease) (Chronic) Chronic atrial fibrillation (Chronic) COPD (chronic obstructive pulmonary disease) (Chronic) CAD (coronary artery disease) (Chronic) Left bundle branch block (Chronic) CKD (chronic kidney disease), stage II (Chronic) Cardiomyopathy (Chronic) Atrial flutter (Chronic) Chronic respiratory failure (Chronic) Hypertension (Chronic) BPH (benign prostatic hypertrophy) (Chronic) HLD (hyperlipidemia) (Chronic) History of CVA (cerebrovascular accident) (Chronic) 2012 GERD (gastroesophageal reflux disease) (Chronic) Stasis dermatitis of both legs (Chronic) with hyperpigmentation ANIBAL (obstructive sleep apnea) (Chronic) Non-compliant Vesico-colic fistula (Chronic) Morbid obesity with BMI of 45.0-49.9, adult (Chronic) Hospital Course and Treatment Consultations 12/20/20 02:11 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 He also complained of shortness of breath which had increased over the last 4 days. Work-up in the emergency room included a CTA of his chest which showed evidence of pulmonary congestion but no evidence of PE, troponin was elevated at 0.631, patient's oxygen saturation was stable on 5 L-patient was on 4 L of oxygen at home chronically. Patient was admitted to PCU, echocardiogram was obtained which showed evidence of pulmonary hypertension but a normal EF, he was seen in consultation by cardiology, cardiac isoenzymes were obtained and these elevated indicating a non-STEMI. There was recommend the patient undergo cardiac catheterization which patient at first consented to, he was placed on IV diuretics and diuresed and later this was changed to a continuous Lasix drip. On the morning of 12/20/20, patient was interviewed concerning whether he wanted to undergo a cardiac catheterization at which time he refused to undergo the catheterization. At that point it was felt that the patient was stable and he could be discharged home on medical treatment which he agreed to. On examination he appeared in good health and spirits, his appearance was unkempt. Vital signs as documented. Skin warm and dry and without overt rashes. Neck without JVD, neck was supple, trachea midline, thyroid was normal. Lungs clear bilaterally, normal air movement was noted. Heart exam notable for regular rhythm, normal sounds and absence of murmurs, rubs or gallops. Abdomen unremarkable and without evidence of organomegaly, masses, or abdominal aortic enlargement. Patient was morbidly obese. Bowel sounds are present, abdomen is not distended. Extremities evidence of severe lymphedema and edema was noted in both lower legs, no cyanosis was noted, no clubbing was noted. Neuro: Cranial nerves II through XII are grossly intact, no focal motor deficits were noted, sensation to light touch and pinprick intact, motor exam 5/5 throughout. Psych: Patient is alert and oriented x3, he does not appear anxious or depressed, he does not appear agitated. Patient was discharged in stable condition on 12/20/2020, prognosis was guarded due to the fact he would not undergo a cardiac catheterization. Patient has issues with noncompliance as an outpatient. 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 He stated he had not seen his PCP for a year. Patient Problems: Active and Suspected Problems (Last Reviewed 05/23/19 @ 13:29 by Chantale Lockhart) CHF (congestive heart failure) (Acute) Chest pain (Acute) NSTEMI (non-ST elevated myocardial infarction) (Acute) Atrial fibrillation and flutter (Acute) Shortness of breath (Acute) - Physical Exam Vitals/I&O's: Vital Signs Temp Pulse Resp BP Pulse Ox 98.0 F 72 16 164/71 H 97 12/20/20 09:30 12/20/20 10:53 12/20/20 10:53 12/20/20 10:53 12/20/20 10:53 Oxygen Flow Rate (L/min) 3 Oxygen Delivery Method Nasal Cannula Weight: 179.2 kg Body Mass Index (BMI) 52.7 Finger Stick Blood Glucose 120 Intake and Output for Last 24 Hours 12/18/20 12/19/20 12/20/20 23:59 23:59 23:59 Intake Total 720 / 960 303.55 / 543.55 243.33 / 243.33 Output Total 1900 / 2950 4002 / 4802 1125 / 1125 Balance -1180 / -1990 -3698.45 / -4258.45 -881.67 / -881.67 Microbiology Past 72 Hours 12/18/20 07:09 Mucosa - Nose SARS-CoV-2 Antigen (Rapid) - Final Laboratory Results 12/19/20 18:51: Specimen Type ART, Sample Site R Radial, pH 7.42, Bicarbonate Actual 27.5 H, Total CO2 29, Base Excess 3 H, O2 Saturation 86 L, ABG pCO2 42.7, ABG pO2 51 L, Placido Test Positive, O2 Delivery Device Room Air 12/20/20 04:40: Sodium 139, Potassium 3.9, Chloride 106, Carbon Dioxide 28.0, Anion Gap 5, BUN 26 H, Creatinine 1.37 H, Estim Creat Clear Calc 60.83, Est GFR (MDRD) Af Amer 67, Est GFR (MDRD) Non-Af 55 L, BUN/Creatinine Ratio 19.0, Glucose 133 H, Calcium 9.2 Discharge Activity: Return to Normal Activity Weight Bearing Status: Full weight bearing Home Medications: Medications to take at Discharge Albuterol Inhaler [Ventolin Hfa] 1 - 2 puff INHALATION Q4H PRN PRN 04/09/18 Aspirin [Aspirin, Baby] 81 mg PO QHS 04/09/18 Atorvastatin Calcium [Lipitor] 40 mg PO QHS 04/09/18 Calcium (Elemental) [Os-[place]io 500] 500 mg PO DAILY@0800 04/09/18 Clopidogrel Bisulfate [Clopidogrel] 75 mg PO QHS 04/09/18 Ferrous Sulfate 325 mg PO QHS 04/09/18 Guaifenesin [Mucinex] 800 mg PO BID PRN 09/23/18 ropinirole 0.5 mg tablet 2 tablet PO QHS PRN 30 Days #60 tab 02/13/19 Fluticasone Propion/Salmeterol [Wixela 250-50 Inhub] 1 puff INHALATION BID 12/18/20 Metoprolol Succinate 50 mg PO QHS 12/18/20 Prednisone 10 mg PO DAILY 12/18/20 Furosemide [Lasix] 40 mg PO UD #120 tablet 12/20/20 Ipratropium/Albuterol Sulfate [Duoneb] 3 ml INHALATION 4X/DAY #1 12/20/20 Isosorbide Mononitrate [Imdur] 60 mg PO DAILY #30 tablet 12/20/20 Losartan Potassium [Cozaar] 50 mg PO BID #60 tablet 12/20/20 Potassium Chloride Oral Tablet [K-Dur] 40 meq PO BIDCM #120 tablet 12/20/20 Following Prescriptions Were Given to Patient: Losartan Potassium [Cozaar] 50 mg PO BID #60 tablet Transmission Status: Received by [facility] Ipratropium/Albuterol Sulfate [Duoneb] 3 ml INHALATION 4X/DAY #1 Isosorbide Mononitrate [Imdur] 60 mg PO DAILY #30 tablet Transmission Status: Received by [facility] Potassium Chloride Oral Tablet [K-Dur] 40 meq PO BIDCM #120 tablet Transmission Status: Received by [facility] Furosemide [Lasix] 40 mg PO UD #120 tablet Transmission Status: Received by [facility] Primary Care Physician: Hernan Murray MD [Primary Care Provider] - Please follow up with your Primary Care Physician in: in 7 days Please Follow Up With: Cardiology When: in 3 weeks Disposition: Home Minutes spent on discharge:: 32 Patient Condition:: Stable Medical Necessity - Tobacco Use Smoking Status: Former smoker Tobacco Use: Cigarettes Meaningful Use Info Meaningful Use Diagnoses (Choose all that apply): AMI - AMI/Post PCI/Angioplasty Aspirin given w/in 24hrs of arrival?: Yes ASA at discharge?: Yes Antiplatelet Therapy at Discharge:: Yes Statins at discharge?: Yes Mp/ARB at discharge?: Yes Beta Meng at discharge?: Yes Done w/ Acute MS measure.: Yes Documented LVEF (%): 55 Inpatient E&M: [id number] Disch Hosp
--- NOTE | 2020-12-23 15:52 | CASEMGMT ---
Addendum entered by Jannet Godinez 12/25/20 15:49: Attempted to reach pt again without success, phone goes straight to voicemail and voicemail box has not been set up yet. Lxea FISHMAN CM Original Note: [place] Discharge F/U Phone Call LACE: 10 Strata: 3 Discharge date: 12/20/20 Call date: 12/23/20 Call time: [phone] Attempted to reach pt without success and unable to leave message as voicemail box has not been set up. Lexa FISHMAN CM Admission dx: CHF, Chest pain
== END 2020-12-20 11:52 | disposition home or self-care (01) | DRG 280 ==
LOC: ED 10:01 → PCU 10:51
PROVIDERS: Admitting Provider Internal Medicine; Emergency Provider Emergency Medicine; PCP Family Medicine; Visit Provider Internal Medicine
DX: I21.4 Non-ST elevation (NSTEMI) myocardial infarction (principal); I50.31 Acute diastolic (congestive) heart failure; I13.0 Hypertensive heart and chronic kidney disease with heart failure and stage 1 through stage 4 chronic kidney disease, or unspecified chronic kidney disease; J96.11 Chronic respiratory failure with hypoxia; J44.0 Chronic obstructive pulmonary disease with (acute) lower respiratory infection; I48.92 Unspecified atrial flutter; Z68.43 Body mass index [BMI] 50.0-59.9, adult; I42.9 Cardiomyopathy, unspecified; I48.20 Chronic atrial fibrillation, unspecified; N32.1 Vesicointestinal fistula; E66.01 Morbid (severe) obesity due to excess calories; I89.0 Lymphedema, not elsewhere classified; G47.33 Obstructive sleep apnea (adult) (pediatric); Z91.19 Patient's noncompliance with other medical treatment and regimen; I27.29 Other secondary pulmonary hypertension; I44.7 Left bundle-branch block, unspecified; N40.0 Benign prostatic hyperplasia without lower urinary tract symptoms; N18.2 Chronic kidney disease, stage 2 (mild); K21.9 Gastro-esophageal reflux disease without esophagitis; I87.2 Venous insufficiency (chronic) (peripheral); I25.10 Atherosclerotic heart disease of native coronary artery without angina pectoris; E78.2 Mixed hyperlipidemia; I27.81 Cor pulmonale (chronic); Z87.891 Personal history of nicotine dependence; Z86.73 Personal history of transient ischemic attack (TIA), and cerebral infarction without residual deficits; Z79.1 Long term (current) use of non-steroidal anti-inflammatories (NSAID); Z80.8 Family history of malignant neoplasm of other organs or systems
CPT/HCPCS: 36415; 36600; 71045; 71275; 80048; 82803; 83880; 84484; 85025; 85379; 87426; 93005; 93306; 94640; 99285; Q9957; Q9967; A4216; C8929; J1940

== ENCOUNTER 2021-02-09 14:46 | Inpatient (IN) | payer MEDICARE, SELFPAY ==
[2020-12-18 10:25] VITALS: BMI 52.7
[2021-02-09] VITALS (11 sets, daily range): BP systolic 106–128; BP diastolic 63–88; PULSE 122–128; RESP 15–28; TEMP 36.7–37.5; O2SAT 95–100; BMI 51.3
--- NOTE | 2021-02-09 15:04 | EKG12_ITS ---
Test Reason : SOB Blood Pressure : / mmHG Vent. Rate : 125 BPM Atrial Rate : 127 BPM P-R Int : 144 ms QRS Dur : 164 ms QT Int : 364 ms P-R-T Axes : 000 080 203 degrees QTc Int : 525 ms Wide complex rhythm: Consider atrial flutter Left bundle branch block Abnormal ECG Confirmed by JOIE HERRERA, FLASH ([id number]), fan mail editor SCOTTY OSORIO ([id number]) on 02/12/2021 12:46:49 PM Referred By: SAMANTHA Confirmed By:FLASH SALTER MD
--- NOTE | 2021-02-09 15:05 | ED.VIS.DYS ---
HPI History of Present Illness Chief Complaint: Shortness of Breath Narrative Narrative: 65-year-old male with history of CHF, NSTEMI, atrial fibrillation and a flutter, COPD presenting with shortness of breath. Patient states he has been more dyspneic for about a week. He admits to a cough with white sputum. He denies fever or chills. He denies loss of taste or smell. He denies chest pain. He states he is dyspneic with short distances even on his normal 5 L of oxygen via nasal cannula. He states he normally can get around a little bit better but now he can only go several feet. He describes orthopnea as well. He is unsure if he has a weight change. He states he has not been eating well this week. [facility] Medical History Atrial flutter BPH (benign prostatic hypertrophy) CAD (coronary artery disease) Cardiomyopathy Chronic atrial fibrillation CKD (chronic kidney disease), stage II COPD (chronic obstructive pulmonary disease) Cor pulmonale CVA (cerebral vascular accident) (~2012) GERD (gastroesophageal reflux disease) History of cardioversion (~09/07/17) History of CVA (cerebrovascular accident) HLD (hyperlipidemia) Hypertension Left bundle branch block Morbid obesity with BMI of 45.0-49.9, adult NSTEMI (non-ST elevated myocardial infarction) ANIBAL (obstructive sleep apnea) Pulmonary hypertension Stasis dermatitis of both legs Vesico-colic fistula Home Medications albuterol sulfate 1 - 2 puff INHALATION Q4H PRN PRN 04/09/18 [History Last Taken 09/24/18 15:00] aspirin 81 mg PO QHS 04/09/18 [History Last Taken 09/24/18 02:30] atorvastatin 40 mg PO QHS 04/09/18 [History Last Taken 09/24/18 02:30] calcium carbonate 500 mg PO DAILY@0800 04/09/18 [History Last Taken 09/24/18 11:00] clopidogrel 75 mg PO QHS 04/09/18 [History Last Taken 09/24/18 02:30] ferrous sulfate 325 mg PO QHS 04/09/18 [History Last Taken 09/24/18 11:00] guaifenesin 800 mg PO BID PRN 09/23/18 [History Last Taken 09/24/18 11:00] ropinirole 0.5 mg tablet 2 tablet PO QHS PRN 30 Days #60 tab 02/13/19 [History Last Taken Unknown] Prednisone 10 mg PO DAILY 12/18/20 [History Last Taken Unknown] fluticasone propion-salmeterol 1 puff INHALATION BID 12/18/20 [History Last Taken Unknown] metoprolol succinate 50 mg PO QHS 12/18/20 [History Last Taken Unknown] furosemide 40 mg PO UD #120 tablet 12/20/20 [Rx Last Taken Unknown] ipratropium-albuterol 3 ml INHALATION 4X/DAY #1 12/20/20 [Rx Last Taken Unknown] isosorbide mononitrate 60 mg PO DAILY #30 tablet 12/20/20 [Rx Last Taken Unknown] losartan 50 mg PO BID #60 tablet 12/20/20 [Rx Last Taken Unknown] potassium chloride 40 meq PO BIDCM #120 tablet 12/20/20 [Rx Last Taken Unknown] Allergy/AdvReac Type Severity Reaction Status Date / Time cashew nut Allergy Vomiting Verified 02/09/21 14:49 cortisone [Cortisone] Allergy Itching-ONLY Verified 02/09/21 14:49 TO JOINT INJECTABLE KIND Family History Mother Cancer Lung CA Brother Sudden cardiac age 60 Father Heart disease from cardiomyopathy Surgical History Hx of decompression of ulnar nerve Social History Smoking Status: Former smoker second hand exposure: No alcohol intake: never substance use type: does not use caffeine: Yes (4+/day) what type of physical activity do you participate in: none ROS ROS ED Constitutional Constitutional ED: Denies chills, fever(s) or sweats Eyes Eyes: Denies blurry vision or change in vision ENT ENT ED: Denies ear pain or rhinorrhea Cardiovascular Cardiovascular: Reports orthopnea and racing heartbeat; Denies chest pain Respiratory/Chest Respiratory/Chest: Reports cough, dyspnea, dyspnea on exertion and orthopnea Gastrointestinal Gastrointestinal: Denies abdominal pain, nausea or vomiting Genitourinary Genitourinary ED: Denies dysuria, hematuria or urinary frequency Musculoskeletal Musculoskeletal: Denies arthralgias or myalgias Integumentary Denies abscess or rash Neurologic Neurologic: Denies headache(s), paresthesias or weakness Psychiatric Psychiatric: Denies anxiety or depression EXAM Physical Exam Const Vital Signs: 02/09/21 14:49 02/09/21 14:58 02/09/21 15:11 Temperature 98.1 F Temperature Source Oral Pulse Rate 124 H 124 H 123 H Respiratory Rate 23 H 28 H 15 Respiratory Effort Short of Breath Respiratory Depth Shallow Respiratory Pattern Tachypnea Blood Pressure 106/63 106/83 H 115/76 Blood Pressure Mean 77 90 89 Pulse Ox 96 98 99 Oxygen Delivery Method Nasal Cannula Nasal Cannula Nasal Cannula Oxygen Flow Rate (L/min) 6 6 6 02/09/21 15:52 Temperature 98.4 F Temperature Source Oral Pulse Rate 124 H Respiratory Rate 24 H Respiratory Effort Respiratory Depth Respiratory Pattern Blood Pressure 106/75 Blood Pressure Mean 85 Pulse Ox 97 Oxygen Delivery Method Room Air Oxygen Flow Rate (L/min) Positive obese and unkempt General Appearance ED: unkempt Nutritional Appearance: obese HEENT Reports dry mucous membranes atraumatic Mouth ED: Yes dry mucous membranes Mouth: dry mucous membranes Eyes PERRL and EOMs intact bilaterally Neck no lymphadenopathy and supple Resp normal respiratory effort and clear to auscultation bilaterally Cardio regular rhythm Rate: tachycardic GI non-tender and non-distended Palpation: soft Extremity General Extremety ED: Yes edema; Negative for tenderness General Extremity: edema Neuro oriented x3 Sensorium / Orientation: alert Psych mental status grossly normal Appearance: unkempt Thought Process: normal thought process Skin Skin Narrative: Chronic stasis changes bilateral lower extremities. Rashes: no rashes MDM MDM MDM Narrative Medical decision making narrative: 65-year-old male presenting with dyspnea and tachycardia. His EKG performed on arrival shows a sinus tachycardia at 125 bpm as interpreted by myself. Patient is maintaining normal O2 sats on his 5 L while resting. Blood work shows white blood cell count 11.3, hemoglobin 11.8, hematocrit 37.6, platelets 255. PT/INR normal. Creatinine is slightly elevated to 1.5 which is higher than his previous. Electrolytes are normal. LFTs are normal. Chest x-ray interpreted by myself is consistent with CHF. Patient's BNP is also elevated. Discussed with hospitalist who requested 40 mg of Lasix. Patient still remains tachycardic. Impression: 1. CHF exacerbation 2. Tachycardia 3. Acute kidney injury Lab Data Labs: Laboratory Results - last 24 hr 02/09/21 02/09/21 02/09/21 15:07 15:07 15:07 WBC 11.3 H RBC 4.08 L Hgb 11.8 L Hct 37.6 L MCV 92.2 MCH 28.9 MCHC 31.4 L RDW Std Deviation 48.3 H RDW Coeff of Bunny 14.4 Plt Count 255 MPV 10.0 Immature Gran % (Auto) 0.600 Neut % (Auto) 84.8 H Lymph % (Auto) 5.5 L [place] % (Auto) 7.4 Eos % (Auto) 1.3 Baso % (Auto) 0.4 Absolute Neuts (auto) 9.6 H Absolute Lymphs (auto) 0.62 L Nucleated RBC % 0 PT 14.2 INR 1.2 APTT 29.4 Sodium 141 Potassium 3.9 Chloride 108 H Carbon Dioxide 25.0 Anion Gap 8 BUN 26 H Creatinine 1.50 H Estim Creat Clear Calc 55.56 Est GFR (MDRD) Af Amer 60 Est GFR (MDRD) Non-Af 50 L BUN/Creatinine Ratio 17.3 Glucose 159 H Lactic Acid Calcium 9.0 Magnesium Total Bilirubin 0.30 AST 16 ALT 23 Alkaline Phosphatase 99 Troponin I B-Natriuretic Peptide Total Protein 6.8 Albumin 3.6 Globulin 3.2 Albumin/Globulin Ratio 1.1 02/09/21 02/09/21 02/09/21 15:07 15:08 15:08 WBC RBC Hgb Hct MCV MCH MCHC RDW Std Deviation RDW Coeff of Bunny Plt Count MPV Immature Gran % (Auto) Neut % (Auto) Lymph % (Auto) [place] % (Auto) Eos % (Auto) Baso % (Auto) Absolute Neuts (auto) Absolute Lymphs (auto) Nucleated RBC % PT INR APTT Sodium Potassium Chloride Carbon Dioxide Anion Gap BUN Creatinine Estim Creat Clear Calc Est GFR (MDRD) Af Amer Est GFR (MDRD) Non-Af BUN/Creatinine Ratio Glucose Lactic Acid 1.9 Calcium Magnesium Total Bilirubin AST ALT Alkaline Phosphatase Troponin I 0.103 H B-Natriuretic Peptide 330.0 H Total Protein Albumin Globulin Albumin/Globulin Ratio 02/09/21 15:08 WBC RBC Hgb Hct MCV MCH MCHC RDW Std Deviation RDW Coeff of Bunny Plt Count MPV Immature Gran % (Auto) Neut % (Auto) Lymph % (Auto) [place] % (Auto) Eos % (Auto) Baso % (Auto) Absolute Neuts (auto) Absolute Lymphs (auto) Nucleated RBC % PT INR APTT Sodium Potassium Chloride Carbon Dioxide Anion Gap BUN Creatinine Estim Creat Clear Calc Est GFR (MDRD) Af Amer Est GFR (MDRD) Non-Af BUN/Creatinine Ratio Glucose Lactic Acid Calcium Magnesium 2.3 Total Bilirubin AST ALT Alkaline Phosphatase Troponin I B-Natriuretic Peptide Total Protein Albumin Globulin Albumin/Globulin Ratio Radiography Diagnostic Testing: Radiology Impression Chest X-Ray 02/09/21 15:15 IMPRESSION: Stable mild CHF. Electronically Signed: Kal Matute MD ([place]) at 16:05 EDT , Service support , Discharge Plan Disposition Disposition: Acute Care Hospital [facility] Discharge Date/Time: 02/09/21 17:30
--- NOTE | 2021-02-09 15:15 | RAD_ITS ---
STUDY: X-RAY CHEST REASON FOR EXAM: Male, 65 years old. dyspnea TECHNIQUE: AP COMPARISON: 12/18/2020 FINDINGS: EKG leads project over the chest. Central pulmonary vascular congestion and interstitial thickening overall similar. No sizable effusion. There is mild cardiac enlargement. Normal mediastinum and asaf. Normal visualized aortic arch and descending thoracic aorta. No acute bony process. There is no demonstrated abnormality of the visualized soft tissue structures of the upper abdomen. RAD/Chest 1 View (Portable) IMPRESSION: Stable mild CHF. Electronically Signed: Kal Matute MD ([place]) at 16:05 EDT , Service support ,
[2021-02-09 15:17] LABS: Absolute Lymphocyte Count 0.62 X10^3/uL (0.83-4.51); Absolute Neutrophil Count 9.6 X10^3/uL (2.0-7.7); Basophil# 0.05 X10^3/uL; Basophil% 0.4 % (0-1); Eosinophil# 0.15 X10^3/uL; Eosinophils% 1.3 % (0-5); Hematocrit 37.6 % (40-54); Hemoglobin 11.8 g/dL (13.0-16.5); Lymphocyte # 0.62 X10^3/ul (0.83-4.51); Lymphocyte % 5.5 % (19-41); Mean Corp Hgb Conc 31.4 g/dL (32-36); Mean Corpuscular Hgb 28.9 pg (27.0-32.0); Mean Corpuscular Volume 92.2 fL (80-94); Monocyte# 0.83 X10^3/uL; Monocyte% 7.4 % (0-10); NRBC Flagged by Analyzer 0 % (0-5); Neutrophil # 9.55 X10^3/uL (2.7-7.7); Neutrophil % 84.8 % (47-70); Platelet Count 255 K/mm3 (150-450); RBC Distribution Width CV 14.4 % (11.6-14.6); RBC Distribution Width SD 48.3 fl (35.1-43.9); Red Blood Count 4.08 M/mm3 (4.6-6.2); White Blood Count 11.3 K/mm3 (4.4-11.0)
[2021-02-09 15:25] LABS: International Normalized Ratio 1.2; Prothrombin Time (Protime)PT. 14.2 SECONDS (11.7-14.9)
[2021-02-09 15:26] LABS: Partial Thromboplast Time 29.4 Seconds (24.1-36.2)
[2021-02-09 15:34] LABS: ALB/GLOB Ratio 1.1 RATIO (0.9-2.4); AST(SGOT) 16 U/L (15-37); Alanine Aminotransfer ALT/SGPT 23 U/L (16-61); Albumin, Serum 3.6 g/dL (3.2-5.0); Alkaline Phosphatase 99 U/L (45-117); Anion Gap 8 (5-15); BUN 26 mg/dL (7-18); BUN/Creat Ratio 17.3 RATIO (10-20); Chloride 108 mmol/L (98-107); EST Glomerular Filtration Rate 50 mL/min (>60); Est Glom Filt Rate - Afr Amer 60 mL/min (>60); Estimated Creatinine Clearance 55.56 ml/min; Globulin 3.2 g/dL (2.2-4.2); Glucose 159 mg/dL (74-106); Potassium 3.9 mmol/L (3.5-5.1); Protein, Total 6.8 g/dL (6.4-8.2); Sodium Level 141 mmol/L (136-145)
[2021-02-09 15:41] LABS: Lactic Acid 1.9 mmol/L (0.4-1.9)
[2021-02-09] MEDS: Furosemide 40 MG/4 ML Vial IV ×2 (16:50→21:40)
--- NOTE | 2021-02-09 16:51 | PCM.HP.STD ---
Documented by User: Corey MICHELLE 02/09/21 17:34 HPI - General HPI Narrative Patient is a 65-year-old male who presents to the ED at [facility] on 02/09/2021 with a chief complaint of shortness of breath. Patient states that he has been an ongoing eviction dispute with his landlord x1 month and that this fact has is causing him significant distress, to which he attributes the shortness of breath. Patient states that his current shortness of breath is with exertion and at rest. Patient states that when he usually gets short of breath he can rest and it improves, however with current episode this has not been the case. Patient is on 5 L of oxygen at home at rest and exertion. Patient endorses orthopnea and a productive cough with white sputum. Patient endorses chronic diarrhea. Denies chest pain, palpitations, hemoptysis, fever, chills, nausea and vomiting. Past medical history is significant for NSTEMI, cardiomyopathy, CHF with preserved ejection fraction, A. fib, hyperlipidemia, hypertension, COPD, obesity and ANIBAL. Patient follows with Dr. Toledo for medical management as he does not want invasive evaluation/care. Echocardiogram completed on 12/20/2020 demonstrated normal LV systolic function and size, an estimated EF of 55% and an RVSP of 55 mmHg consistent with pulmonary hypertension and evidence of diastolic dysfunction. Patient states that he has not smoked in over 5 years, endorses a endorses a 40-year history of smoking 1 pack/day. Patient states that he also used to smoke marijuana but has not in many years. Denies any other illicit or prescription drug abuse. Patient endorses drinking less than 1 drink per month. Patient's father had a cardiomyopathy and mother has an unspecified cancer history. Patient is tachycardic at a rate of 122 bpm, tachypnea at a rate of 22 breaths/min and hypotension at 98/22. Currently satting 100% on 5 L via nasal cannula. WBC is mildly elevated at 11,000. Creatinine mildly elevated at 1.5. Troponin 0.103. BNP 330.0. EKG demonstrates sinus tacycardia with a rate of 122. CXR demonstrates mild cardaic enlarngement and central pulmonary vascular congestion consistent with stable CHF. Patient given IV Lasix in the ED and will be admitted to PCU for cardiac telemetry monitoring. PFSH Medical History Atrial flutter BPH (benign prostatic hypertrophy) CAD (coronary artery disease) Cardiomyopathy Chronic atrial fibrillation CKD (chronic kidney disease), stage II COPD (chronic obstructive pulmonary disease) Cor pulmonale CVA (cerebral vascular accident) (~2012) GERD (gastroesophageal reflux disease) History of cardioversion (~09/07/17) History of CVA (cerebrovascular accident) HLD (hyperlipidemia) Hypertension Left bundle branch block Morbid obesity with BMI of 45.0-49.9, adult NSTEMI (non-ST elevated myocardial infarction) ANIBAL (obstructive sleep apnea) Pulmonary hypertension Stasis dermatitis of both legs Vesico-colic fistula Home Medications albuterol sulfate 1 - 2 puff INHALATION Q4H PRN PRN 04/09/18 [History Last Taken 09/24/18 15:00] aspirin 81 mg PO QHS 04/09/18 [History Last Taken 09/24/18 02:30] atorvastatin 40 mg PO QHS 04/09/18 [History Last Taken 09/24/18 02:30] calcium carbonate 500 mg PO DAILY@0800 04/09/18 [History Last Taken 09/24/18 11:00] clopidogrel 75 mg PO QHS 04/09/18 [History Last Taken 09/24/18 02:30] ferrous sulfate 325 mg PO QHS 04/09/18 [History Last Taken 09/24/18 11:00] guaifenesin 800 mg PO BID PRN 09/23/18 [History Last Taken 09/24/18 11:00] ropinirole 0.5 mg tablet 2 tablet PO QHS PRN 30 Days #60 tab 02/13/19 [History Last Taken Unknown] Prednisone 10 mg PO DAILY 12/18/20 [History Last Taken Unknown] fluticasone propion-salmeterol 1 puff INHALATION BID 12/18/20 [History Last Taken Unknown] metoprolol succinate 50 mg PO QHS 12/18/20 [History Last Taken Unknown] furosemide 40 mg PO UD #120 tablet 12/20/20 [Rx Last Taken Unknown] ipratropium-albuterol 3 ml INHALATION 4X/DAY #1 12/20/20 [Rx Last Taken Unknown] isosorbide mononitrate 60 mg PO DAILY #30 tablet 12/20/20 [Rx Last Taken Unknown] losartan 50 mg PO BID #60 tablet 12/20/20 [Rx Last Taken Unknown] potassium chloride 40 meq PO BIDCM #120 tablet 12/20/20 [Rx Last Taken Unknown] Allergy/AdvReac Type Severity Reaction Status Date / Time cashew nut Allergy Vomiting Verified 02/09/21 14:49 cortisone [Cortisone] Allergy Itching-ONLY Verified 02/09/21 14:49 TO JOINT INJECTABLE KIND Family History Mother Cancer Lung CA Brother Sudden cardiac age 60 Father Heart disease from cardiomyopathy Surgical History Hx of decompression of ulnar nerve Social History Smoking Status: Former smoker second hand exposure: No alcohol intake: never substance use type: does not use caffeine: Yes (4+/day) what type of physical activity do you participate in: none ROS Constitutional Constitutional: Denies anorexia, change in weight, chills, fatigue, fever(s), malaise, night sweats, weakness or other Eyes Eyes: Denies blurry vision, change in eye color, change in vision, discharge from eye(s), double vision, erythema, eye pain, loss of vision or other ENT HEENT: Denies abnormal hearing, dysphagia, ear pain, epistaxis, headache(s), hearing loss, nasal congestion, nasal discharge, post nasal drip, sinus pressure, sore throat or other Cardiovascular Cardiovascular: Reports dyspnea on exertion, edema, orthopnea, paroxysmal nocturnal dyspnea and rapid heart rate; Denies chest pain, claudication, lightheadedness, palpitations, syncope or other Respiratory/Chest Respiratory/Chest: Reports dyspnea, excessive phlegm production, productive cough, shortness of breath at rest and shortness of breath with exertion; Denies cough, hemoptysis, wheezing or other Gastrointestinal Gastrointestinal: Reports diarrhea and loose stools; Denies abdominal pain, coffee ground emesis, constipation, dyspepsia, hematemesis, hematochezia, melena, nausea, vomiting or other Genitourinary Genitourinary: Denies burning urination, difficulty urinating, dysuria, hematuria, nocturia, urinary frequency, urinary hesitancy, urinary incontinence, urinary urgency or other Musculoskeletal Musculoskeletal: Denies arthralgias, back pain, joint pain, joint stiffness, joint swelling, myalgias, neck pain or other Neurologic Neurologic: Denies abnormal gait, abnormal speech, confusion, disequilibrium, dizziness, focal weakness, headache(s), numbness, paresthesias, seizure-like activity, seizures, syncope, tingling, tremor(s) or other Psychiatric Psychiatric: Denies anxiety, depression, homicidal ideation, suicidal ideation or other Endocrine Endocrinology: Denies change in body appearance, cold intolerance, excessive sweating, heat intolerance, polydipsia, polyuria or other Hematologic/Lymphatic Hematologic/Lymphatic: Denies anemia, easy bleeding, easy bruising, lymphadenopathy or other Allergic/Immunologic Allergic/Immunologic: Denies rhinitis, hives, eczemia, asthma or other Vital Signs Vital Signs Vital Signs: 02/09/21 14:49 02/09/21 14:58 02/09/21 15:11 Temperature 98.1 F Temperature Source Oral Pulse Rate 124 H 124 H 123 H Respiratory Rate 23 H 28 H 15 Respiratory Effort Short of Breath Respiratory Depth Shallow Respiratory Pattern Tachypnea Blood Pressure 106/63 106/83 H 115/76 Blood Pressure Mean 77 90 89 Pulse Ox 96 98 99 Oxygen Delivery Method Nasal Cannula Nasal Cannula Nasal Cannula Oxygen Flow Rate (L/min) 6 6 6 02/09/21 15:52 Temperature 98.4 F Temperature Source Oral Pulse Rate 124 H Respiratory Rate 24 H Respiratory Effort Respiratory Depth Respiratory Pattern Blood Pressure 106/75 Blood Pressure Mean 85 Pulse Ox 97 Oxygen Delivery Method Room Air Oxygen Flow Rate (L/min) Weight Weight: 400 lb Body Mass Index (BMI) 51.3 Physical Exam Const alert and oriented x3 General Appearance: cooperative Nutritional Appearance: morbidly obese HEENT normocephalic, head/scalp atraumatic, hearing grossly normal bilaterally and moist oral mucous membranes Eyes PERRL, EOMs intact bilaterally and conjunctivae normal Neck no lymphadenopathy, supple and no JVD Resp Effort and Inspection: able to speak in complete sentences, tachypneic and respiratory distress Auscultation: diminished lung sounds Cardio no JVD Rate: tachycardic GI normal to inspection, nondistended, normoactive bowel sounds, soft to palpation, non-tender and non-distended Extremity Extremity Narrative: Bilateral lower extremity edema, worse on the left. Skin General Skin Exam: crusts and dry skin Neuro CN's II-XII intact bilaterally Psych Mood & Affect: depressed and anxious Lab / Micro Data Result Diagrams: 02/09/21 15:07 02/09/21 15:07 Labs: Laboratory Results - last 24 hr 02/09/21 02/09/21 02/09/21 15:07 15:07 15:07 WBC 11.3 H RBC 4.08 L Hgb 11.8 L Hct 37.6 L MCV 92.2 MCH 28.9 MCHC 31.4 L RDW Std Deviation 48.3 H RDW Coeff of Bunny 14.4 Plt Count 255 MPV 10.0 Immature Gran % (Auto) 0.600 Neut % (Auto) 84.8 H Lymph % (Auto) 5.5 L Morton % (Auto) 7.4 Eos % (Auto) 1.3 Baso % (Auto) 0.4 Absolute Neuts (auto) 9.6 H Absolute Lymphs (auto) 0.62 L Nucleated RBC % 0 PT 14.2 INR 1.2 APTT 29.4 Sodium 141 Potassium 3.9 Chloride 108 H Carbon Dioxide 25.0 Anion Gap 8 BUN 26 H Creatinine 1.50 H Estim Creat Clear Calc 55.56 Est GFR (MDRD) Af Amer 60 Est GFR (MDRD) Non-Af 50 L BUN/Creatinine Ratio 17.3 Glucose 159 H Lactic Acid Calcium 9.0 Total Bilirubin 0.30 AST 16 ALT 23 Alkaline Phosphatase 99 Troponin I B-Natriuretic Peptide Total Protein 6.8 Albumin 3.6 Globulin 3.2 Albumin/Globulin Ratio 1.1 02/09/21 02/09/21 02/09/21 15:07 15:08 15:08 WBC RBC Hgb Hct MCV MCH MCHC RDW Std Deviation RDW Coeff of Bunny Plt Count MPV Immature Gran % (Auto) Neut % (Auto) Lymph % (Auto) Morton % (Auto) Eos % (Auto) Baso % (Auto) Absolute Neuts (auto) Absolute Lymphs (auto) Nucleated RBC % PT INR APTT Sodium Potassium Chloride Carbon Dioxide Anion Gap BUN Creatinine Estim Creat Clear Calc Est GFR (MDRD) Af Amer Est GFR (MDRD) Non-Af BUN/Creatinine Ratio Glucose Lactic Acid 1.9 Calcium Total Bilirubin AST ALT Alkaline Phosphatase Troponin I 0.103 H B-Natriuretic Peptide 330.0 H Total Protein Albumin Globulin Albumin/Globulin Ratio Micro: Microbiology 02/09/21 15:11 SARS-CoV-2 Antigen (Rapid) - Final Nasal Secretion Radiology Impression Chest X-Ray 02/09/21 15:15 IMPRESSION: Stable mild CHF. Electronically Signed: Kal Matute MD ([place]) at 16:05 EDT , Service support , Assessment & Plan Assessment/Plan (1) CHF (congestive heart failure): (2) NSTEMI (non-ST elevated myocardial infarction): (3) Atrial fibrillation and flutter: (4) Shortness of breath: (5) COPD (chronic obstructive pulmonary disease): (6) CAD (coronary artery disease): QUALIFIERS: Associated angina: without angina Coronary Disease-Associated Artery/Lesion type: [place] artery [place] vs. transplanted heart: [place] heart Qualified Code(s): I25.10 - Atherosclerotic heart disease of [place] coronary artery without angina pectoris (7) Morbid obesity with BMI of 45.0-49.9, adult: (8) Pulmonary hypertension: (9) ANIBAL (obstructive sleep apnea): (10) GERD (gastroesophageal reflux disease): (11) Stasis dermatitis of both legs: (12) History of CVA (cerebrovascular accident): (13) HLD (hyperlipidemia): QUALIFIERS: Hyperlipidemia type: mixed hyperlipidemia Qualified Code(s): E78.2 - Mixed hyperlipidemia (14) BPH (benign prostatic hypertrophy): (15) Hypertension: QUALIFIERS: Hypertension type: essential hypertension Qualified Code(s): I10 - Essential (primary) hypertension PLAN: Patient is a 65-year-old male who presents to the ED at [facility] on 02/09/2021 with a chief complaint of shortness of breath. Patient will be admitted for CHF exacerbation. 1) Acute on chronic CHF exacerbation with preserved ejection fraction 1 week history of progressively worsening shortness of breath related to anxiety ongoing infection dispute with ivan. Troponin I 0.103. BNP 330.0 echocardiogram completed on 12/20/2020 demonstrated normal LV systolic function and size, an estimated EF of 55% and an RVSP of 55 mmHg consistent with pulmonary hypertension and evidence of diastolic dysfunction. CXR demonstrates mild cardiac enlargement and central pulmonary vascular congestion consistent with stable CHF. Rapid Covid negative. Home medication list includes aspirin, statin, Plavix, Lasix, isosorbide mononitrate, losartan and metoprolol. Plan; blood cultures, continue metoprolol, aspirin, plavix, imdur, Losartan, TSH ordered, Lasix IV 40mg PO BID, Nitroglycerin to 5 hours, cardiology consult ordered. 2) CAD Continue aspirin, Plavix and metoprolol. 3) COPD Chest x-ray as above. Hold home albuterol, fluticasone, ipratropium. Continue prednisone. Guaifenesine as needed. 4) HTN Continue losartan, hydralazine as needed, Lasix as above. 5) Hyperlipidemia Continue statin, 6) Hx of CVA Continue statin, aspirin and Plavix. DVT Prophylaxis - Lovenox SC. CODE STATUS: DNRCC?A, no intubation Patient seen by Corey Rowe PA-C, under the supervision of Dr. Cunningham Documented by User: Dr. Adry Cunningham MD 02/09/21 17:35 HPI - General General Date of Admission: 02/09/21 [facility] Medical History Atrial flutter BPH (benign prostatic hypertrophy) CAD (coronary artery disease) Cardiomyopathy Chronic atrial fibrillation CKD (chronic kidney disease), stage II COPD (chronic obstructive pulmonary disease) Cor pulmonale CVA (cerebral vascular accident) (~2012) GERD (gastroesophageal reflux disease) History of cardioversion (~09/07/17) History of CVA (cerebrovascular accident) HLD (hyperlipidemia) Hypertension Left bundle branch block Morbid obesity with BMI of 45.0-49.9, adult NSTEMI (non-ST elevated myocardial infarction) ANIBAL (obstructive sleep apnea) Pulmonary hypertension Stasis dermatitis of both legs Vesico-colic fistula Home Medications albuterol sulfate 1 - 2 puff INHALATION Q4H PRN PRN 04/09/18 [History Last Taken 09/24/18 15:00] aspirin 81 mg PO QHS 04/09/18 [History Last Taken 09/24/18 02:30] atorvastatin 40 mg PO QHS 04/09/18 [History Last Taken 09/24/18 02:30] calcium carbonate 500 mg PO DAILY@0800 04/09/18 [History Last Taken 09/24/18 11:00] clopidogrel 75 mg PO QHS 04/09/18 [History Last Taken 09/24/18 02:30] ferrous sulfate 325 mg PO QHS 04/09/18 [History Last Taken 09/24/18 11:00] guaifenesin 800 mg PO BID PRN 09/23/18 [History Last Taken 09/24/18 11:00] ropinirole 0.5 mg tablet 2 tablet PO QHS PRN 30 Days #60 tab 02/13/19 [History Last Taken Unknown] Prednisone 10 mg PO DAILY 12/18/20 [History Last Taken Unknown] fluticasone propion-salmeterol 1 puff INHALATION BID 12/18/20 [History Last Taken Unknown] metoprolol succinate 50 mg PO QHS 12/18/20 [History Last Taken Unknown] furosemide 40 mg PO UD #120 tablet 12/20/20 [Rx Last Taken Unknown] ipratropium-albuterol 3 ml INHALATION 4X/DAY #1 12/20/20 [Rx Last Taken Unknown] isosorbide mononitrate 60 mg PO DAILY #30 tablet 12/20/20 [Rx Last Taken Unknown] losartan 50 mg PO BID #60 tablet 12/20/20 [Rx Last Taken Unknown] potassium chloride 40 meq PO BIDCM #120 tablet 12/20/20 [Rx Last Taken Unknown] Allergy/AdvReac Type Severity Reaction Status Date / Time cashew nut Allergy Vomiting Verified 02/09/21 14:49 cortisone [Cortisone] Allergy Itching-ONLY Verified 02/09/21 14:49 TO JOINT INJECTABLE KIND Family History Mother Cancer Lung CA Brother Sudden cardiac age 60 Father Heart disease from cardiomyopathy Surgical History Hx of decompression of ulnar nerve Social History Smoking Status: Former smoker second hand exposure: No alcohol intake: never substance use type: does not use caffeine: Yes (4+/day) what type of physical activity do you participate in: none Lab / Micro Data Result Diagrams: 02/09/21 15:07 02/09/21 15:07
[2021-02-09 16:59] LABS: Magnesium 2.3 mg/dL (1.6-2.6)
[2021-02-09 17:23] LABS: Mucous, Urine 0 SEEN /hpf (<or=2+)
[2021-02-09 17:26] LABS: Color, Urine Yellow (Yellow); Glucose, Dipstick 1000 mg/dl (Normal); Ketone-Dipstick Negative (Negative); Leukocyte Esterase-Dipstick 500 /ul (Negative); Nitrite-Dipstick Negative (Negative); Occult Blood-Urine 25 /ul (Negative); Protein-Dipstick 30 mg/dl (Negative); Specific Gravity, Urine 1.015 (1.002-1.030); Urine Bilirubin Dipstick Negative (Negative); Urine Clarity Cloudy (Clear); Urine Urobilinogen Normal (Normal)
[2021-02-09 17:29] LABS: White Blood Cells >100 SEEN /hpf (0-5)
[2021-02-09 17:30] LABS: Bacteria 2+ /hpf (None Seen); Red Blood Cells-Urine 0-5 SEEN /hpf (0-5); Squamous Epithelial Cells - UA 0-5 SEEN /hpf (0-5)
[2021-02-09 17:50] LABS: Hemoglobin A1c 6.4 % (3.8-5.6)
[2021-02-09] MEDS: Potassium Chloride Oral Tablet 20 MEQ 40 MEQ PO (18:27)
[2021-02-09] MEDS: Metoprolol(XL)Succ 50 MG Tablet PO (18:37)
[2021-02-09] MEDS: Ipratropium/Albuterol Sulfate 3 ML AMPUL.NEB INHALATION (18:57)
[2021-02-09] MEDS: Ferrous Sulfate 325 MG Tablet PO (21:39)
[2021-02-09] MEDS: LORazepam 1 MG Tablet PO (21:39)
[2021-02-09] MEDS: Aspirin 81 MG TAB.CHEW PO (21:39)
[2021-02-09] MEDS: Losartan Potassium 50 MG Tablet PO (21:40)
[2021-02-09] MEDS: Atorvastatin Calcium 40 MG Tablet PO (21:40)
[2021-02-09] MEDS: Clopidogrel Bisulfate 75 MG Tablet PO (21:40)
[2021-02-09] MEDS: Enoxaparin 40 MG/0.4 ML Syringe SC (21:41)
[2021-02-10] VITALS (22 sets, daily range): BP systolic 98–135; BP diastolic 47–83; PULSE 88–125; RESP 16–26; TEMP 36.3–37.5; O2SAT 5–99
[2021-02-10] MEDS: Albuterol 2.5 MG/3 ML VIAL.NEB. INHALATION (03:48)
[2021-02-10 05:05] LABS: Absolute Lymphocyte Count 0.82 X10^3/uL (0.83-4.51); Absolute Neutrophil Count 8.7 X10^3/uL (2.0-7.7); Basophil# 0.06 X10^3/uL; Basophil% 0.6 % (0-1); Eosinophil# 0.23 X10^3/uL; Eosinophils% 2.1 % (0-5); Hematocrit 36.5 % (40-54); Hemoglobin 11.3 g/dL (13.0-16.5); Lymphocyte # 0.82 X10^3/ul (0.83-4.51); Lymphocyte % 7.6 % (19-41); Mean Corpuscular Hgb 28.5 pg (27.0-32.0); Mean Corpuscular Volume 92.2 fL (80-94); Mean Platelet Vol. 10.4 fl (6.2-12.0); Monocyte# 0.86 X10^3/uL; NRBC Flagged by Analyzer 0 % (0-5); Neutrophil % 81.1 % (47-70); Platelet Count 261 K/mm3 (150-450); RBC Distribution Width CV 14.5 % (11.6-14.6); RBC Distribution Width SD 48.8 fl (35.1-43.9); Red Blood Count 3.96 M/mm3 (4.6-6.2); White Blood Count 10.7 K/mm3 (4.4-11.0)
[2021-02-10 05:52] LABS: ALB/GLOB Ratio 1.1 RATIO (0.9-2.4); AST(SGOT) 10 U/L (15-37); Alanine Aminotransfer ALT/SGPT 21 U/L (16-61); Albumin, Serum 3.4 g/dL (3.2-5.0); Alkaline Phosphatase 96 U/L (45-117); Anion Gap 10 (5-15); BUN 25 mg/dL (7-18); BUN/Creat Ratio 16.2 RATIO (10-20); Calcium,Total 8.6 mg/dL (8.5-10.1); Chloride 108 mmol/L (98-107); Cholesterol 120 mg/dL (200); Creatinine, Serum 1.54 mg/dL (0.70-1.30); EST Glomerular Filtration Rate 48 mL/min (>60); Est Glom Filt Rate - Afr Amer 58 mL/min (>60); Estimated Creatinine Clearance 54.12 ml/min; Globulin 3.1 g/dL (2.2-4.2); Glucose 144 mg/dL (74-106); High Density Lipoprotein 37 mg/dL; Potassium 3.9 mmol/L (3.5-5.1); Protein, Total 6.5 g/dL (6.4-8.2); Sodium Level 141 mmol/L (136-145); Thyroid Stim Hormone (TSH) 1.65 uIU/mL (0.358-3.74); Triglycerides 106 mg/dL; Very Low Density Lipoprotein 21 mg/dL (5-40)
[2021-02-10] MEDS: Nitroglycerin (INPATIENT USE) 0.4 MG TAB.SUBL SL (06:11)
[2021-02-10] MEDS: Ipratropium/Albuterol Sulfate 3 ML AMPUL.NEB INHALATION ×3 (07:03→19:30)
[2021-02-10] MEDS: Furosemide 40 MG/4 ML Vial IV ×3 (07:11→22:04)
[2021-02-10] MEDS: Calcium (Elemental) 500 MG Tablet PO (08:13)
[2021-02-10] MEDS: Potassium Chloride Oral Tablet 20 MEQ 40 MEQ PO ×2 (08:13→16:47)
[2021-02-10] MEDS: Losartan Potassium 50 MG Tablet PO (08:44)
[2021-02-10] MEDS: Isosorbide Mononitrate 60 MG Tablet PO (08:45)
[2021-02-10] MEDS: predniSONE 10 MG Tablet PO (08:45)
--- NOTE | 2021-02-10 12:34 | CON.PCM.CA_ITS ---
Assessment & Plan Assessment/Plan (1) CHF (congestive heart failure): PLAN: He does appear to have evidence of congestive heart failure based on his clinical exam as well as his natruretic peptide level. He is ejection fraction is noted to be preserved as at the last evaluation. I would recommend at this time that we continue him with intravenous Lasix. My suspicion is that he is in heart failure because of his atrial fibrillation flutter. We will attempt to treat the underlying cause. (2) Atrial fibrillation and flutter: PLAN: He presents with a tachycardia unbeknownst to him. He appears to be persistently at 125 bpm. His rhythm on the EKG is consistent with an atrial flutter with a 2-1 block and a left bundle branch block. * He has not been on an anticoagulant and he tells me that he has been having some bleeding diatheses at home. He is quite hesitant about going on Coumadin and does not want to be on Xarelto or Eliquis. * At this time, we will attempt to rate control him. * I would recommend that we increase his metoprolol to 100 mg twice a day of the short acting * Due to his blood pressure concerns I would like to add amiodarone 200 mg 3 times a day for rate control only * Further recommendations will be undertaken depending on his response to the ab ove. (3) Left bundle branch block: PLAN: He does have evidence of a chronic left bundle branch block. There does not appear to be any progression of the above conduction system disturbance. (4) Hypertension: QUALIFIERS: Hypertension type: essential hypertension Qualified Code(s): I10 - Essential (primary) hypertension PLAN: He has a history of hypertension. His blood pressure appears to be fairly well controlled. We will continue with his current medical therapy. (5) CAD (coronary artery disease): QUALIFIERS: Coronary Disease-Associated Artery/Lesion type: [place] artery [place] vs. transplanted heart: [place] heart Associated angina: without angina Qualified Code(s): I25.10 - Atherosclerotic heart disease of [place] coronary artery without angina pectoris PLAN: He does not have recently documented evidence of coronary artery disease. As you know he has declined this in the past. He is still of the same opinion at this time. I do not have any indication for an invasive cardiac approach to be undertaken at this particular time. He will however continue with risk factor modification. Thank you for allowing me to participate in the care of your patient. Please don't hesitate to call if any issues arise. HPI Consult Data Date of Consult: 02/10/21 HPI Narrative HPI Narrative: NIRALI ACHARYA, is a 65 M who presented to the emergency room with a complaint of shortness of breath. He was having some disputes at home with his landlord and it culminated in shortness of breath and he presented to the emergency room. He was evaluated and admitted with a diagnosis of conge stive heart failure. Cardiology was called to evaluate him. He does have a past cardiovascular history which is included atrial fibrillation/flutter status post synchronized biphasic DC cardioversion , underlying cardiomyopathy and congestive heart failure, hyperlipidemia, hypertension, COPD, obstructive sleep apnea, pulmonary hypertension with cor pulmonale, vesico-folic fistula, and morbid obesity. As you remember he is usually chronically short of breath but he says that this was worse than before. You do remember that he has previously declined any invasive cardiac evaluation. He continues to follow-up with my colleague Dr. John Paul Toledo. His last echocardiographic evaluation had demonstrated preserved ejection fraction. In the emergency room he was noted to be in a tachycardic rhythm.He has also had marked chronic peripheral pitting edema of the lower extremities. [] [facility] Medical History Atrial flutter BPH (benign prostatic hypertrophy) CAD (coronary artery disease) Cardiomyopathy Chronic atrial fibrillation CKD (chronic kidney disease), stage II COPD (chronic obstructive pulmonary disease) Cor pulmonale CVA (cerebral vascular accident) (~2012) GERD (gastroesophageal reflux disease) History of cardioversion (~09/07/17) History of CVA (cerebrovascular accident) HLD (hyperlipidemia) Hypertension Left bundle branch block Morbid obesity with BMI of 45.0-49.9, adult NSTEMI (non-ST elevated myocardial infarction) ANIBAL (obstructive sleep apnea) Pulmonary hypertension Stasis dermatitis of both legs Vesico-colic fistula Home Medications albuterol sulfate 1 - 2 puff INHALATION Q4H PRN PRN 04/09/18 [History Last Taken 09/24/18 15:00] aspirin 81 mg PO QHS 04/09/18 [History Last Taken 09/24/18 02:30] atorvastatin 40 mg PO QHS 04/09/18 [History Last Taken 09/24/18 02:30] calcium carbonate 500 mg PO DAILY@0800 04/09/18 [History Last Taken 09/24/18 11:00] clopidogrel 75 mg PO QHS 04/09/18 [History Last Taken 09/24/18 02:30] ferrous sulfate 325 mg PO QHS 04/09/18 [History Last Taken 09/24/18 11:00] guaifenesin 800 mg PO BID PRN 09/23/18 [History Last Taken 09/24/18 11:00] ropinirole 0.5 mg tablet 2 tablet PO QHS PRN 30 Days #60 tab 02/13/19 [History Last Taken Unknown] Prednisone 10 mg PO DAILY 12/18/20 [History Last Taken Unknown] fluticasone propion-salmeterol 1 puff INHALATION BID 12/18/20 [History Last Taken Unknown] metoprolol succinate 50 mg PO QHS 12/18/20 [History Last Taken Unknown] furosemide 40 mg PO UD #120 tablet 12/20/20 [Rx Last Taken Unknown] ipratropium-albuterol 3 ml INHALATION 4X/DAY #1 12/20/20 [Rx Last Taken Unknown] isosorbide mononitrate 60 mg PO DAILY #30 tablet 12/20/20 [Rx Last Taken Unknown] losartan 50 mg PO BID #60 tablet 12/20/20 [Rx Last Taken Unknown] potassium chloride 40 meq PO BIDCM #120 tablet 12/20/20 [Rx Last Taken Unknown] Allergy/AdvReac Type Severity Reaction Status Date / Time cashew nut Allergy Vomiting Verified 02/09/21 14:49 cortisone [Cortisone] Allergy Itching-ONLY Verified 02/09/21 14:49 TO JOINT INJECTABLE KIND Family History Mother Cancer Lung CA Brother Sudden cardiac age 60 Father Heart disease from cardiomyopathy Surgical History Hx of decompression of ulnar nerve Social History Smoking Status: Former smoker second hand exposure: No alcohol intake: never substance use type: does not use caffeine: Yes (4+/day) what type of physical activity do you participate in: none ROS Constitutional Constitutional: Denies fever(s) or weight loss Eyes Eyes: Reports as per HPI ENT HEENT: Reports as per HPI Cardiovascular Cardiovascular: Reports irregular heart rhythm and other Respiratory/Chest Respiratory/Chest: Reports dyspnea, dyspnea on exertion and other Gastrointestinal Gastrointestinal: Denies change in bowel habits, nausea, vomiting or weight changes Genitourinary Genitourinary: Denies difficulty urinating Musculoskeletal Musculoskeletal: Denies joint stiffness or muscle weakness Integumentary Integumentary: Denies lesions Neurologic Neurologic: Denies dizziness or syncope Psychiatric Psychiatric: Denies anxiety Endocrine Endocrinology: Denies excessive sweating or fatigue Hematologic/Lymphatic Hematologic/Lymphatic: Denies anemia Allergic/Immunologic Allergic/Immunologic: Denies seasonal rhinorrhea Physical Exam Const oriented x3 and healthy appearing Orientation / Consciousness: awake HEENT normocephalic Eyes PERRL and conjunctivae normal Neck supple, no JVD and no carotid bruits Chest inspection of chest normal Resp normal respiratory effort and clear to auscultation bilaterally Cardio Palpation: normal PMI Rate: regular rate Rhythm: regular rhythm Heart Sounds: S1 normal and S2 normal Peripheral Pulses: pulses 2+ throughout GI normal to inspection, nondistended, normoactive bowel sounds Extremity normal to inspection General Extremity: edema bilateral Psych mental status grossly normal Objective Data Vital Signs: Vital Signs Temp Pulse Resp BP Pulse Ox 99.1 F 125 H 18 118/80 99 02/10/21 08:12 02/10/21 09:23 02/10/21 08:12 02/10/21 08:12 02/10/21 08:12 Oxygen Flow Rate (L/min) 5 Oxygen Delivery Method Nasal Cannula Weight: 394 lb 13.566 oz Body Mass Index (BMI) 51.3 Intake & Output: Intake and Output for Last 24 Hours 02/08/21 02/09/21 02/10/21 23:59 23:59 23:59 Intake Total 150 / 150 Output Total 900 / 900 Balance -750 / -750 Lab / Micro Data Result Diagrams: 02/10/21 04:30 02/10/21 04:30 Labs: Laboratory Results - last 24 hr 02/09/21 02/09/21 02/09/21 15:07 15:07 15:07 WBC 11.3 H RBC 4.08 L Hgb 11.8 L Hct 37.6 L MCV 92.2 MCH 28.9 MCHC 31.4 L RDW Std Deviation 48.3 H RDW Coeff of [place]bn[place] 14.4 Plt Count 255 MPV 10.0 Immature Gran % (Auto) 0.600 Neut % (Auto) 84.8 H Lymph % (Auto) 5.5 L [place] % (Auto) 7.4 Eos % (Auto) 1.3 Baso % (Auto) 0.4 Absolute Neuts (auto) 9.6 H Absolute Lymphs (auto) 0.62 L Nucleated RBC % 0 PT 14.2 INR 1.2 APTT 29.4 Sodium 141 Potassium 3.9 Chloride 108 H Carbon Dioxide 25.0 Anion Gap 8 BUN 26 H Creatinine 1.50 H Estim Creat Clear Calc 55.56 Est GFR (MDRD) Af Amer 60 Est GFR (MDRD) Non-Af 50 L BUN/Creatinine Ratio 17.3 Glucose 159 H Hemoglobin A1c Lactic Acid Calcium 9.0 Magnesium Total Bilirubin 0.30 AST 16 ALT 23 Alkaline Phosphatase 99 Troponin I B-Natriuretic Peptide Total Protein 6.8 Albumin 3.6 Globulin 3.2 Albumin/Globulin Ratio 1.1 Triglycerides Cholesterol LDL Cholesterol VLDL Cholesterol HDL Cholesterol TSH Urine Color Urine Clarity Urine pH Ur Specific [place] Urine Protein Urine Glucose (UA) Urine Ketones Urine Occult Blood Urine Nitrite Urine Bilirubin Urine Urobilinogen Ur Leukocyte Esterase Urine RBC Urine WBC Ur Squamous Epith Cells Urine Bacteria Urine Mucus 02/09/21 02/09/21 02/09/21 15:07 15:08 15:08 WBC RBC Hgb Hct MCV MCH MCHC RDW Std Deviation RDW Coeff of [place] Plt Count MPV Immature Gran % (Auto) Neut % (Auto) Lymph % (Auto) [place] % (Auto) Eos % (Auto) Baso % (Auto) Absolute Neuts (auto) Absolute Lymphs (auto) Nucleated RBC % PT INR APTT Sodium Potassium Chloride Carbon Dioxide Anion Gap BUN Creatinine Estim Creat Clear Calc Est GFR (MDRD) Af Amer Est GFR (MDRD) Non-Af BUN/Creatinine Ratio Glucose Hemoglobin A1c Lactic Acid 1.9 Calcium Magnesium Total Bilirubin AST ALT Alkaline Phosphatase Troponin I 0.103 H B-Natriuretic Peptide 330.0 H Total Protein Albumin Globulin Albumin/Globulin Ratio Triglycerides Cholesterol LDL Cholesterol VLDL Cholesterol HDL Cholesterol TSH Urine Color Urine Clarity Urine pH Ur Specific [place] Urine Protein Urine Glucose (UA) Urine Ketones Urine Occult Blood Urine Nitrite Urine Bilirubin Urine Urobilinogen Ur Leukocyte Esterase Urine RBC Urine WBC Ur Squamous Epith Cells Urine Bacteria Urine Mucus 02/09/21 02/09/21 02/09/21 15:08 17:17 17:21 WBC RBC Hgb Hct MCV MCH MCHC RDW Std Deviation RDW Coeff of [place] Plt Count MPV Immature Gran % (Auto) Neut % (Auto) Lymph % (Auto) [place] % (Auto) Eos % (Auto) Baso % (Auto) Absolute Neuts (auto) Absolute Lymphs (auto) Nucleated RBC % PT INR APTT Sodium Potassium Chloride Carbon Dioxide Anion Gap BUN Creatinine Estim Creat Clear Calc Est GFR (MDRD) Af Amer Est GFR (MDRD) Non-Af BUN/Creatinine Ratio Glucose Hemoglobin A1c 6.4 H Lactic Acid Calcium Magnesium 2.3 Total Bilirubin AST ALT Alkaline Phosphatase Troponin I B-Natriuretic Peptide Total Protein Albumin Globulin Albumin/Globulin Ratio Triglycerides Cholesterol LDL Cholesterol VLDL Cholesterol HDL Cholesterol TSH Urine Color Yellow Urine Clarity Cloudy Urine pH 6.0 Ur Specific [place] 1.015 Urine Protein 30 H Urine Glucose (UA) 1000 H Urine Ketones Negative Urine Occult Blood 25 H Urine Nitrite Negative Urine Bilirubin Negative Urine Urobilinogen Normal Ur Leukocyte Esterase 500 H Urine RBC 0-5 SEEN Urine WBC >100 SEEN Ur Squamous Epith Cells 0-5 SEEN Urine Bacteria 2+ Urine Mucus 0 SEEN 02/10/21 02/10/21 02/10/21 04:30 04:30 10:32 WBC 10.7 RBC 3.96 L Hgb 11.3 L Hct 36.5 L MCV 92.2 MCH 28.5 MCHC 31.0 L RDW Std Deviation 48.8 H RDW Coeff of [place] 14.5 Plt Count 261 MPV 10.4 Immature Gran % (Auto) 0.600 Neut % (Auto) 81.1 H Lymph % (Auto) 7.6 L [place] % (Auto) 8.0 Eos % (Auto) 2.1 Baso % (Auto) 0.6 Absolute Neuts (auto) 8.7 H Absolute Lymphs (auto) 0.82 L Nucleated RBC % 0 PT INR APTT Sodium 141 Potassium 3.9 Chloride 108 H Carbon Dioxide 23.0 Anion Gap 10 BUN 25 H Creatinine 1.54 H Estim Creat Clear Calc 54.12 Est GFR (MDRD) Af Amer 58 L Est GFR (MDRD) Non-Af 48 L BUN/Creatinine Ratio 16.2 Glucose 144 H Hemoglobin A1c Lactic Acid Calcium 8.6 Magnesium Total Bilirubin 0.50 AST 10 L ALT 21 Alkaline Phosphatase 96 Troponin I 0.083 H B-Natriuretic Peptide Total Protein 6.5 Albumin 3.4 Globulin 3.1 Albumin/Globulin Ratio 1.1 Triglycerides 106 Cholesterol 120 LDL Cholesterol 62 VLDL Cholesterol 21 HDL Cholesterol 37 L TSH 1.65 Urine Color Urine Clarity Urine pH Ur Specific [place] Urine Protein Urine Glucose (UA) Urine Ketones Urine Occult Blood Urine Nitrite Urine Bilirubin Urine Urobilinogen Ur Leukocyte Esterase Urine RBC Urine WBC Ur Squamous Epith Cells Urine Bacteria Urine Mucus Micro: Microbiology 02/09/21 15:11 Nasal Secretion SARS-CoV-2 Antigen (Rapid) - Final Cardiology Labs/Tests 02/09/21 15:07: WBC 11.3 H, RBC 4.08 L, Hgb 11.8 L, Hct 37.6 L, MCV 92.2, MCH 28.9, MCHC 31.4 L, Plt Count 255, MPV 10.0, Immature Gran % (Auto) 0.600, Neut % (Auto) 84.8 H, Lymph % (Auto) 5.5 L, [place] % (Auto) 7.4, Eos % (Auto) 1.3, Baso % (Auto) 0.4, Absolute Neuts (auto) 9.6 H, Nucleated RBC % 0 02/09/21 15:07: PT 14.2, INR 1.2, APTT 29.4 02/09/21 15:07: Sodium 141, Potassium 3.9, Chloride 108 H, Carbon Dioxide 25.0, Anion Gap 8, BUN 26 H, Creatinine 1.50 H, Est GFR (MDRD) Af Amer 60, Est GFR (MDRD) Non-Af 50 L, BUN/Creatinine Ratio 17.3, Glucose 159 H, Calcium 9.0, Total Bilirubin 0.30 02/09/21 15:07: Lactic Acid 1.9 02/09/21 15:08: B-Natriuretic Peptide 330.0 H 02/09/21 15:08: Troponin I 0.103 H 02/09/21 15:08: Magnesium 2.3 02/09/21 17:17: Urine Color Yellow, Urine Clarity Cloudy, Urine pH 6.0, Ur Specific [place] 1.015, Urine Protein 30 H, Urine Glucose (UA) 1000 H, Urine Ketones Negative, Urine Occult Blood 25 H, Urine Nitrite Negative, Urine Bilirubin Negative, Urine Urobilinogen Normal, Ur Leukocyte Esterase 500 H, Urine RBC 0-5 SEEN, Urine WBC >100 SEEN 02/09/21 17:21: Hemoglobin A1c 6.4 H 02/10/21 04:30: WBC 10.7, RBC 3.96 L, Hgb 11.3 L, Hct 36.5 L, MCV 92.2, MCH 28.5, MCHC 31.0 L, Plt Count 261, MPV 10.4, Immature Gran % (Auto) 0.600, Neut % (Auto) 81.1 H, Lymph % (Auto) 7.6 L, [place] % (Auto) 8.0, Eos % (Auto) 2.1, Baso % (Auto) 0.6, Absolute Neuts (auto) 8.7 H, Nucleated RBC % 0 02/10/21 04:30: Sodium 141, Potassium 3.9, Chloride 108 H, Carbon Dioxide 23.0, Anion Gap 10, BUN 25 H, Creatinine 1.54 H, Est GFR (MDRD) Af Amer 58 L, Est GFR (MDRD) Non-Af 48 L, BUN/Creatinine Ratio 16.2, Glucose 144 H, Calcium 8.6, Total Bilirubin 0.50, Triglycerides 106, Cholesterol 120, LDL Cholesterol 62, VLDL Cholesterol 21, HDL Cholesterol 37 L 02/10/21 10:32: Troponin I 0.083 H Rhythm: EKG: ECHO: Stress Test: Cardiac Cath: PCI: CT Surgery: Holter monitor: EPS: PPM: CXR: Chest CT Scan: Radiography Diagnostic Testing: Radiology Impression Chest X-Ray 02/09/21 15:15 IMPRESSION: Stable mild CHF. Electronically Signed: Kal Matute MD ([place]) at 16:05 EDT , Service support ,
[2021-02-10] MEDS: Amiodarone 200 MG Tablet PO ×2 (13:54→22:03)
[2021-02-10] MEDS: 0.9% Saline Lock 10 ML Syringe IV ×2 (13:54→22:05)
--- NOTE | 2021-02-10 13:56 | PCM.PN.HOSP ---
Documented by User: Corey MICHELLE 02/10/21 14:27 Subjective Subjective Patient is a 65-year-old male sitting in a chair, alert and oriented x3. Patient expresses frustration over not being able to eat this morning, as he does not want any invasive intervention. Denies chest pain, shortness of breath, palpitations, fever, chills, N/V/D. Objective Data Objective Data Vital Signs: Vital Signs Temp Pulse Resp BP Pulse Ox 98.2 F 125 H 18 123/47 H 99 02/10/21 13:52 02/10/21 13:52 02/10/21 13:52 02/10/21 13:52 02/10/21 13:52 Oxygen Flow Rate (L/min) 5 Oxygen Delivery Method Nasal Cannula Weight: 394 lb 13.566 oz Body Mass Index (BMI) 51.3 Intake & Output: Intake and Output for Last 24 Hours 02/08/21 02/09/21 02/10/21 23:59 23:59 23:59 Intake Total 550 / 550 Output Total 1200 / 1200 Balance -650 / -650 Lab / Micro Data Result Diagrams: 02/10/21 04:30 02/10/21 04:30 Labs: Laboratory Results - last 24 hr 02/09/21 02/09/21 02/09/21 15:07 15:07 15:07 WBC 11.3 H RBC 4.08 L Hgb 11.8 L Hct 37.6 L MCV 92.2 MCH 28.9 MCHC 31.4 L RDW Std Deviation 48.3 H RDW Coeff of [place] 14.4 Plt Count 255 MPV 10.0 Immature Gran % (Auto) 0.600 Neut % (Auto) 84.8 H Lymph % (Auto) 5.5 L [place] % (Auto) 7.4 Eos % (Auto) 1.3 Baso % (Auto) 0.4 Absolute Neuts (auto) 9.6 H Absolute Lymphs (auto) 0.62 L Nucleated RBC % 0 PT 14.2 INR 1.2 APTT 29.4 Sodium 141 Potassium 3.9 Chloride 108 H Carbon Dioxide 25.0 Anion Gap 8 BUN 26 H Creatinine 1.50 H Estim Creat Clear Calc 55.56 Est GFR (MDRD) Af Amer 60 Est GFR (MDRD) Non-Af 50 L BUN/Creatinine Ratio 17.3 Glucose 159 H Hemoglobin A1c Lactic Acid Calcium 9.0 Magnesium Total Bilirubin 0.30 AST 16 ALT 23 Alkaline Phosphatase 99 Troponin I B-Natriuretic Peptide Total Protein 6.8 Albumin 3.6 Globulin 3.2 Albumin/Globulin Ratio 1.1 Triglycerides Cholesterol LDL Cholesterol VLDL Cholesterol HDL Cholesterol TSH Urine Color Urine Clarity Urine pH Ur Specific [place] Urine Protein Urine Glucose (UA) Urine Ketones Urine Occult Blood Urine Nitrite Urine Bilirubin Urine Urobilinogen Ur Leukocyte Esterase Urine RBC Urine WBC Ur Squamous Epith Cells Urine Bacteria Urine Mucus 02/09/21 02/09/21 02/09/21 15:07 15:08 15:08 WBC RBC Hgb Hct MCV MCH MCHC RDW Std Deviation RDW Coeff of [place] Plt Count MPV Immature Gran % (Auto) Neut % (Auto) Lymph % (Auto) [place] % (Auto) Eos % (Auto) Baso % (Auto) Absolute Neuts (auto) Absolute Lymphs (auto) Nucleated RBC % PT INR APTT Sodium Potassium Chloride Carbon Dioxide Anion Gap BUN Creatinine Estim Creat Clear Calc Est GFR (MDRD) Af Amer Est GFR (MDRD) Non-Af BUN/Creatinine Ratio Glucose Hemoglobin A1c Lactic Acid 1.9 Calcium Magnesium Total Bilirubin AST ALT Alkaline Phosphatase Troponin I 0.103 H B-Natriuretic Peptide 330.0 H Total Protein Albumin Globulin Albumin/Globulin Ratio Triglycerides Cholesterol LDL Cholesterol VLDL Cholesterol HDL Cholesterol TSH Urine Color Urine Clarity Urine pH Ur Specific [place] Urine Protein Urine Glucose (UA) Urine Ketones Urine Occult Blood Urine Nitrite Urine Bilirubin Urine Urobilinogen Ur Leukocyte Esterase Urine RBC Urine WBC Ur Squamous Epith Cells Urine Bacteria Urine Mucus 02/09/21 02/09/21 02/09/21 15:08 17:17 17:21 WBC RBC Hgb Hct MCV MCH MCHC RDW Std Deviation RDW Coeff of [place] Plt Count MPV Immature Gran % (Auto) Neut % (Auto) Lymph % (Auto) [place] % (Auto) Eos % (Auto) Baso % (Auto) Absolute Neuts (auto) Absolute Lymphs (auto) Nucleated RBC % PT INR APTT Sodium Potassium Chloride Carbon Dioxide Anion Gap BUN Creatinine Estim Creat Clear Calc Est GFR (MDRD) Af Amer Est GFR (MDRD) Non-Af BUN/Creatinine Ratio Glucose Hemoglobin A1c 6.4 H Lactic Acid Calcium Magnesium 2.3 Total Bilirubin AST ALT Alkaline Phosphatase Troponin I B-Natriuretic Peptide Total Protein Albumin Globulin Albumin/Globulin Ratio Triglycerides Cholesterol LDL Cholesterol VLDL Cholesterol HDL Cholesterol TSH Urine Color Yellow Urine Clarity Cloudy Urine pH 6.0 Ur Specific [place] 1.015 Urine Protein 30 H Urine Glucose (UA) 1000 H Urine Ketones Negative Urine Occult Blood 25 H Urine Nitrite Negative Urine Bilirubin Negative Urine Urobilinogen Normal Ur Leukocyte Esterase 500 H Urine RBC 0-5 SEEN Urine WBC >100 SEEN Ur Squamous Epith Cells 0-5 SEEN Urine Bacteria 2+ Urine Mucus 0 SEEN 02/10/21 02/10/21 02/10/21 04:30 04:30 10:32 WBC 10.7 RBC 3.96 L Hgb 11.3 L Hct 36.5 L MCV 92.2 MCH 28.5 MCHC 31.0 L RDW Std Deviation 48.8 H RDW Coeff of [place] 14.5 Plt Count 261 MPV 10.4 Immature Gran % (Auto) 0.600 Neut % (Auto) 81.1 H Lymph % (Auto) 7.6 L [place] % (Auto) 8.0 Eos % (Auto) 2.1 Baso % (Auto) 0.6 Absolute Neuts (auto) 8.7 H Absolute Lymphs (auto) 0.82 L Nucleated RBC % 0 PT INR APTT Sodium 141 Potassium 3.9 Chloride 108 H Carbon Dioxide 23.0 Anion Gap 10 BUN 25 H Creatinine 1.54 H Estim Creat Clear Calc 54.12 Est GFR (MDRD) Af Amer 58 L Est GFR (MDRD) Non-Af 48 L BUN/Creatinine Ratio 16.2 Glucose 144 H Hemoglobin A1c Lactic Acid Calcium 8.6 Magnesium Total Bilirubin 0.50 AST 10 L ALT 21 Alkaline Phosphatase 96 Troponin I 0.083 H B-Natriuretic Peptide Total Protein 6.5 Albumin 3.4 Globulin 3.1 Albumin/Globulin Ratio 1.1 Triglycerides 106 Cholesterol 120 LDL Cholesterol 62 VLDL Cholesterol 21 HDL Cholesterol 37 L TSH 1.65 Urine Color Urine Clarity Urine pH Ur Specific [place] Urine Protein Urine Glucose (UA) Urine Ketones Urine Occult Blood Urine Nitrite Urine Bilirubin Urine Urobilinogen Ur Leukocyte Esterase Urine RBC Urine WBC Ur Squamous Epith Cells Urine Bacteria Urine Mucus 02/10/21 12:58 WBC RBC Hgb Hct MCV MCH MCHC RDW Std Deviation RDW Coeff of [place] Plt Count MPV Immature Gran % (Auto) Neut % (Auto) Lymph % (Auto) [place] % (Auto) Eos % (Auto) Baso % (Auto) Absolute Neuts (auto) Absolute Lymphs (auto) Nucleated RBC % PT INR APTT Sodium Potassium Chloride Carbon Dioxide Anion Gap BUN Creatinine Estim Creat Clear Calc Est GFR (MDRD) Af Amer Est GFR (MDRD) Non-Af BUN/Creatinine Ratio Glucose Hemoglobin A1c Lactic Acid Calcium Magnesium Total Bilirubin AST ALT Alkaline Phosphatase Troponin I 0.086 H B-Natriuretic Peptide Total Protein Albumin Globulin Albumin/Globulin Ratio Triglycerides Cholesterol LDL Cholesterol VLDL Cholesterol HDL Cholesterol TSH Urine Color Urine Clarity Urine pH Ur Specific [place] Urine Protein Urine Glucose (UA) Urine Ketones Urine Occult Blood Urine Nitrite Urine Bilirubin Urine Urobilinogen Ur Leukocyte Esterase Urine RBC Urine WBC Ur Squamous Epith Cells Urine Bacteria Urine Mucus Micro: Microbiology 02/09/21 15:11 Nasal Secretion SARS-CoV-2 Antigen (Rapid) - Final Radiography Diagnostic Testing: Radiology Impression Chest X-Ray 02/09/21 15:15 IMPRESSION: Stable mild CHF. Electronically Signed: Kal Matute MD ([place]) at 16:05 EDT , Service support , Physical Exam Narrative See subjective for patient presentation Const alert, oriented x3 and no apparent distress Nutritional Appearance: morbidly obese HEENT head/scalp atraumatic, moist oral mucous membranes, oropharynx normal and dentition normal Head and Scalp: normocephalic Eyes PERRL, EOMs intact bilaterally and conjunctivae normal Neck no lymphadenopathy, supple and no JVD Resp normal respiratory effort, no retractions, no use of accessory muscles and clear to auscultation bilaterally Cardio no murmurs and no JVD Rate: tachycardic GI normal to inspection, nondistended, normoactive bowel sounds, soft to palpation, non-tender and non-distended Extremity normal to inspection, full ROM and no clubbing, cyanosis or edema Skin no rashes or lesions noted, no wounds, skin turgor normal and no jaundice Neuro CN's II-XII intact bilaterally Psych affect normal Assessment & Plan Assessment/Plan (1) CHF (congestive heart failure): (2) NSTEMI (non-ST elevated myocardial infarction): (3) Atrial fibrillation and flutter: (4) Shortness of breath: (5) COPD (chronic obstructive pulmonary disease): (6) CAD (coronary artery disease): QUALIFIERS: Associated angina: without angina Coronary Disease-Associated Artery/Lesion type: [place] artery [place] vs. transplanted heart: [place] heart Qualified Code(s): I25.10 - Atherosclerotic heart disease of [place] coronary artery without angina pectoris (7) Morbid obesity with BMI of 45.0-49.9, adult: (8) Pulmonary hypertension: (9) ANIBAL (obstructive sleep apnea): (10) History of CVA (cerebrovascular accident): (11) HLD (hyperlipidemia): QUALIFIERS: Hyperlipidemia type: mixed hyperlipidemia Qualified Code(s): E78.2 - Mixed hyperlipidemia (12) BPH (benign prostatic hypertrophy): PLAN: 1) Acute on chronic CHF exacerbation with preserved ejection fraction Cardiology now following. Mildly elevated troponins throughout cycle on admission. BNP 330.0. Echocardiogram completed on 12/20/2020 demonstrated normal LV systolic function and size, an estimated EF of 55% and an RVSP of 55 mmHg consistent with pulmonary hypertension and evidence of diastolic dysfunction. CXR demonstrates mild cardiac enlargement and central pulmonary vascular congestion consistent with stable CHF. Cardiology following, medication changes as follows. Urine and blood cultures pending. Plan; Lopressor increased to 100 mg p.o. twice daily, amiodarone 20 mg p.o. 3 times daily initiated, losartan decreased to 50 mg p.o. daily, continue IV Lasix 40 mg IV every 8, continue Imdur 60 mg p.o. daily, continue aspirin. 2) CAD Cardiology following, risk factor modification recommended. No invasive cardiac approach indicated. Continue aspirin, Plavix and metoprolol. 3) COPD Chest x-ray as above. Hold home albuterol, fluticasone, ipratropium. Continue prednisone. Guaifenesine as needed. 4) HTN Continue losartan, hydralazine as needed, Lasix as above. 5) Hyperlipidemia Continue statin, 6) Hx of CVA Continue statin, aspirin and Plavix. 7) Hyperglycemia on admission Blood glucose 144 this morning, 159 admission. Hemoglobin A1c 6.4, within normal limits. DVT Prophylaxis - Lovenox SC. CODE STATUS: DNRCC?A, no intubation Patient seen by Corey Rowe PA-C, under the supervision of Dr. Major. Documented by User: Dr. Kelechi Major MD 02/10/21 15:18 Subjective Subjective Patient has multiple comorbidities with morbid obesity. Heart rate is still in the 120s, sinus rhythm with PVCs. Patient does not want surgical procedure. Dyspnea on minimal exertion. Denies chest pain/pressure. Objective Data Lab / Micro Data Result Diagrams: 02/10/21 04:30 02/10/21 04:30 Physical Exam Narrative General: Alert, Oriented x3, Cooperative HEENT: Atraumatic, PERRLA, EOMI, Normocephalic Oral: No Gingival or Mucosal Lesions/ Ulcerations Neck: Supple, No JVD, Negative Carotid Bruits Lungs: Air entry diminished in bilateral lung bases. No crepitation/rhonchi Cardiovascular: Sinus rhythm with multiple PVCs. Normal S1 and S2. No murmurs Abdomen: Bowel Sounds Present, Soft, Non Tender, Non-Distended : No renal angle tenderness. No suprapubic tenderness. Extremities: Bilateral lower extremity lymphedema, pitting and nonpitting edema. Skin: Lower legs on Mp wrap bandage. Musculoskeletal: No Tenderness to Palpation of Joints or Extremities Neurological: Cranial nerves II-XII grossly intact, Deep Tendon Reflexes 2+/4 and Symmetrical, Neuro grossly intact Psych/Mental Status: Mildly irritable. Assessment & Plan Assessment/Plan (1) CHF (congestive heart failure): PLAN: This patient was seen in conjunction with VIVIANA Mcneill. I have independently interviewed and examined the patient and reviewed pertinent history, examination findings, laboratory and plan of management. I have reviewed the note and agree with the documented findings with the few additional points. In brief, patient is admitted for acute on chronic CHF exacerbation with diastolic heart failure/HFpEF: Patient is admitted in PCU. Serial troponin enzymes is elevated but trending down. BNP 330 but may be falsely low because of morbid obesity. Echo on 12/2020 shows EF 55%, RVSP 35 mmHg consistent with moderate pulmonary hypertension. Patient also has history of coronary artery disease: Aspirin, Plavix, metoprolol, losartan. COPD: Bronchodilator, prednisone, fluticasone. Other comorbidities include hypertension, dyslipidemia, history of CVA and morbid obesity: A1c 6.4 history of prediabetes Rest as mentioned above. I have discussed my assessment with VIVIANA Mcneill and orders have been reviewed. Visit Charges Inpatient E&M: 75976 Subs Hosp L2
[2021-02-10] MEDS: Pramipexole Di-HCl 0.5 MG Tablet PO (16:46)
[2021-02-10] MEDS: Ferrous Sulfate 325 MG Tablet PO (22:03)
[2021-02-10] MEDS: Metoprolol Tartrate 100 MG Tablet PO (22:03)
[2021-02-10] MEDS: Clopidogrel Bisulfate 75 MG Tablet PO (22:03)
[2021-02-10] MEDS: Aspirin 81 MG TAB.CHEW PO (22:03)
[2021-02-10] MEDS: Enoxaparin 40 MG/0.4 ML Syringe SC (22:04)
[2021-02-10] MEDS: Atorvastatin Calcium 40 MG Tablet PO (22:05)
[2021-02-11] VITALS (31 sets, daily range): BP systolic 94–146; BP diastolic 42–113; PULSE 61–120; RESP 18–30; TEMP 36–37; O2SAT 5–100
[2021-02-11] MEDS: Furosemide 40 MG/4 ML Vial IV ×3 (05:28→21:03)
[2021-02-11] MEDS: Amiodarone 200 MG Tablet PO (05:28)
[2021-02-11] MEDS: 0.9% Saline Lock 10 ML Syringe IV ×2 (05:28→21:05)
[2021-02-11] MEDS: Ipratropium/Albuterol Sulfate 3 ML AMPUL.NEB INHALATION ×3 (06:34→19:07)
[2021-02-11 07:33] LABS: Anion Gap 7 (5-15); BUN 28 mg/dL (7-18); BUN/Creat Ratio 17.8 RATIO (10-20); Calcium,Total 8.9 mg/dL (8.5-10.1); Chloride 106 mmol/L (98-107); Creatinine, Serum 1.57 mg/dL (0.70-1.30); EST Glomerular Filtration Rate 47 mL/min (>60); Est Glom Filt Rate - Afr Amer 57 mL/min (>60); Estimated Creatinine Clearance 53.08 ml/min; Glucose 147 mg/dL (74-106); Potassium 4.1 mmol/L (3.5-5.1); Sodium Level 139 mmol/L (136-145)
[2021-02-11] MEDS: Potassium Chloride Oral Tablet 20 MEQ 40 MEQ PO ×2 (07:55→17:12)
[2021-02-11] MEDS: Calcium (Elemental) 500 MG Tablet PO (07:55)
--- NOTE | 2021-02-11 09:08 | CASEMGMT ---
According to the [facility] website, the following are in-network tertiary facilities: [facility], [place], [facility], [facility], [facility], and . Lexa FISHMAN CM
[2021-02-11] MEDS: Enoxaparin 40 MG/0.4 ML Syringe SC ×2 (10:17→21:03)
[2021-02-11] MEDS: Isosorbide Mononitrate 60 MG Tablet PO (10:18)
[2021-02-11] MEDS: Metoprolol Tartrate 100 MG Tablet PO ×2 (10:18→21:02)
[2021-02-11] MEDS: Losartan Potassium 50 MG Tablet PO (10:18)
[2021-02-11] MEDS: predniSONE 10 MG Tablet PO (10:18)
[2021-02-11] MEDS: Amiodarone 360 MG in Dextrose 5% Viaflo Bag 192.8 ML 33.3 MG CONT INF (11:38)
--- NOTE | 2021-02-11 11:56 | PN.HOSP_ITS ---
Documented by User: Corey MICHELLE 02/11/21 12:10 Subjective Subjective Patient is a 65-year-old male who is sitting in the chair, alert and oriented x3. Patient reports being short of breath due to exertion from walking to the bathroom. Denies any other complaints to include: Chest pain, palpitations, spu hermelindo production, hemoptysis, fever, chills, N/V/D. Objective Data Objective Data Vital Signs: Vital Signs Temp Pulse Resp BP Pulse Ox 98.1 F 116 H 27 H 122/52 H 99 02/11/21 10:07 02/11/21 11:38 02/11/21 11:38 02/11/21 11:38 02/11/21 11:38 Oxygen Flow Rate (L/min) 5 Oxygen Delivery Method Nasal Cannula Weight: 394 lb 13.566 oz Body Mass Index (BMI) 51.3 Intake & Output: Intake and Output for Last 24 Hours 02/09/21 02/10/21 02/11/21 23:59 23:59 23:59 Intake Total 1250 / 1250 243 / 243 Output Total 2200 / 2200 150 / 150 Balance -950 / -950 93 / 93 Lab / Micro Data Result Diagrams: 02/10/21 04:30 02/11/21 07:02 Labs: Laboratory Results - last 24 hr 02/09/21 02/10/21 02/10/21 17:17 12:58 15:38 Sodium Potassium Chloride Carbon Dioxide Anion Gap BUN Creatinine Estim Creat Clear Calc Est GFR (MDRD) Af Amer Est GFR (MDRD) Non-Af BUN/Creatinine Ratio Glucose Calcium Troponin I 0.086 H 0.083 H Urine Color Yellow Urine Clarity Cloudy Urine pH 6.0 Ur Specific [place] 1.015 Urine Protein 30 H Urine Glucose (UA) 1000 H Urine Ketones Negative Urine Occult Blood 25 H Urine Nitrite Negative Urine Bilirubin Negative Urine Urobilinogen Normal Ur Leukocyte Esterase 500 H Urine RBC 0-5 SEEN Urine WBC >100 SEEN Ur Squamous Epith Cells 0-5 SEEN Urine Bacteria 2+ Urine Mucus 0 SEEN 02/11/21 07:02 Sodium 139 Potassium 4.1 Chloride 106 Carbon Dioxide 26.0 Anion Gap 7 BUN 28 H Creatinine 1.57 H Estim Creat Clear Calc 53.08 Est GFR (MDRD) Af Amer 57 L Est GFR (MDRD) Non-Af 47 L BUN/Creatinine Ratio 17.8 Glucose 147 H Calcium 8.9 Troponin I Urine Color Urine Clarity Urine pH Ur Specific [place] Urine Protein Urine Glucose (UA) Urine Ketones Urine Occult Blood Urine Nitrite Urine Bilirubin Urine Urobilinogen Ur Leukocyte Esterase Urine RBC Urine WBC Ur Squamous Epith Cells Urine Bacteria Urine Mucus Micro: Microbiology 02/09/21 15:07 Blood Culture (Wb) - Anticubital Right Blood Culture - Preliminary No growth in 48 hours. 02/09/21 15:04 Blood Culture (Wb) - Right Forearm Blood Culture - Preliminary No growth in 48 hours. 02/09/21 17:17 Urine, Clean Catch Urine Culture - Final Mixed Gram Pos & Gram Neg Org 02/09/21 15:11 Nasal Secretion SARS-CoV-2 Antigen (Rapid) - Final Physical Exam Narrative See subjective. Const alert and oriented x3 Nutritional Appearance: morbidly obese HEENT head/scalp atraumatic, moist oral mucous membranes and oropharynx normal Head and Scalp: normocephalic Eyes PERRL, EOMs intact bilaterally and conjunctivae normal Neck no lymphadenopathy, supple and no JVD Resp Effort and Inspection: tachypneic, respiratory distress and labored Auscultation: diminished lung sounds Cardio no murmurs and no JVD Rate: tachycardic GI normal to inspection, nondistended, normoactive bowel sounds, soft to palpation, non-tender and non-distended Extremity normal to inspection, full ROM and no clubbing, cyanosis or edema Skin no rashes or lesions noted, no wounds and skin turgor normal Neuro CN's II-XII intact bilaterally Psych affect normal Assessment & Plan Assessment/Plan (1) CHF (congestive heart failure): (2) NSTEMI (non-ST elevated myocardial infarction): (3) Shortness of breath: (4) COPD (chronic obstructive pulmonary disease): (5) Chronic atrial fibrillation: (6) CAD (coronary artery disease): QUALIFIERS: Associated angina: without angina Coronary Disease- Associated Artery/Lesion type: [place] artery [place] vs. transplanted heart: [place] heart Qualified Code(s): I25.10 - Atherosclerotic heart disease of [place] coronary artery without angina pectoris (7) CKD (chronic kidney disease), stage II: (8) Cardiomyopathy: QUALIFIERS: Cardiomyopathy type: unspecified Qualified Code(s): I42.9 - Cardiomyopathy, unspecified (9) Chronic respiratory failure: QUALIFIERS: Respiratory failure complication: hypoxia Qualified Code(s): J96.11 - Chronic respiratory failure with hypoxia (10) Hypertension: QUALIFIERS: Hypertension type: essential hypertension Qualified Code(s): I10 - Essential (primary) hypertension (11) BPH (benign prostatic hypertrophy): (12) HLD (hyperlipidemia): QUALIFIERS: Hyperlipidemia type: mixed hyperlipidemia Qualified Code(s): E78.2 - Mixed hyperlipidemia (13) History of CVA (cerebrovascular accident): (14) GERD (gastroesophageal reflux disease): (15) Stasis dermatitis of both legs: (16) ANIBAL (obstructive sleep apnea): (17) Morbid obesity with BMI of 45.0-49.9, adult: (18) Sinus tachycardia: PLAN: See subjective for patient presentation. Hospital medicine team and cardiology are working to address patient's sustained tachycardia. Medical management is being pursued at this time. Patient does not want any invasive interventions. Potential discharge tomorrow. 1) Acute on chronic CHF exacerbation with preserved ejection fraction Cardiology now following. Mildly elevated troponins throughout cycle on admission. BNP 330.0. Echocardiogram completed on 12/20/2020 demonstrated normal LV systolic function and size, an estimated EF of 55% and an RVSP of 55 mmHg consistent with pulmonary hypertension and evidence of diastolic dysfunction. CXR demonstrates mild cardiac enlargement and central pulmonary vascular congestion consistent with stable CHF. Cardiology following, medication changes as follows. Urine and blood cultures pending. Plan; Lopressor increased to 100 mg p.o. twice daily, amiodarone 20 mg p.o. 3 times daily initiated, losartan decreased to 50 mg p.o. daily, continue IV Lasix 40 mg IV every 8, continue Imdur 60 mg p.o. daily, continue aspirin. 2) Sinus Tachycardia Patient has had a sustained tachycardia since 02/09/21. Cardiology following as above. Plan; initiate Amiodarone 360 mg infusion, and rate controlling medications as above. 3) CAD Cardiology following, risk factor modification recommended. No invasive cardiac approach indicated. Continue aspirin, Plavix and metoprolol. 4) COPD Chest x-ray as above. Hold home albuterol, fluticasone, ipratropium. Continue prednisone. Guaifenesine as needed. 5) HTN Continue losartan, hydralazine as needed, Lasix as above. 6) Hyperlipidemia Continue statin, 7) Hx of CVA Continue statin, aspirin and Plavix. 8) Hyperglycemia on admission Blood glucose 147 this morning, 159 on admission. Hemoglobin A1c 6.4, within normal limits. DVT Prophylaxis - Lovenox SC. CODE STATUS: DNRCC?A, no intubation Patient seen by Corey Rowe PA-C, under the supervision of Dr. Major. Documented by User: Dr. Kelechi Major MD 02/11/21 15:59 Subjective Subjective Patient heart rate is better controlled. monitor tech shows A. fib heart rate in 110s. Objective Data Lab / Micro Data Result Diagrams: 02/10/21 04:30 02/11/21 07:02 Physical Exam Narrative General: Alert, Oriented x3, Cooperative HEENT: Atraumatic, PERRLA, EOMI, Normocephalic Oral: No Gingival or Mucosal Lesions/ Ulcerations Neck: Supple, No JVD, Negative Carotid Bruits Lungs: Air entry diminished in bilateral lung bases. No crepitation/rhonchi Cardiovascular: A. fib. Normal S1 and S2. No murmurs Abdomen: Bowel Sounds Present, Soft, Non Tender, Non-Distended : No renal angle tenderness. No suprapubic tenderness. Extremities: Bilateral lower extremity lymphedema, pitting and nonpitting edema. Skin: Lower legs on Mp wrap bandage. Musculoskeletal: No Tenderness to Palpation of Joints or Extremities Neurological: Cranial nerves II-XII grossly intact, Deep Tendon Reflexes 2+/4 and Symmetrical, Neuro grossly intact Psych/Mental Status: Normal affect. Assessment & Plan Assessment/Plan (1) CHF (congestive heart failure): PLAN: This patient was seen in conjunction with VIVIANA Mcneill. I have independently interviewed and examined the patient and reviewed pertinent history, examination findings, laboratory and plan of management. I have reviewed the note and agree with the documented findings with the few additional points. In brief, patient is admitted for acute on chronic CHF exacerbation with diastolic heart failure/HFpEF: Patient is admitted in PCU. Serial troponin enzymes is elevated but trending down suggestive of type II ischemia secondary to CHF. BNP 330 but may be falsely low because of morbid obesity. Echo on 12/2020 shows EF 55%, RVSP 35 mmHg consistent with moderate pulmonary hypertension. Patient seen by immigration case worker and oral amiodarone converted to IV amiodarone drip. Heart rate is better controlled than yesterday. Patient also has history of coronary artery disease: Aspirin, Plavix, metoprolol, losartan. COPD: Bronchodilator, prednisone, fluticasone. Other comorbidities include hypertension, dyslipidemia, history of CVA and morbid obesity: A1c 6.4 history of prediabetes Rest as mentioned above. I have discussed my assessment with VIVIANA Mcneill and orders have been reviewed. Visit Charges Inpatient E&M: 20389 Subs Hosp L2
--- NOTE | 2021-02-11 12:26 | PCM.PN.CARD ---
Subjective Subjective The patient is awake and alert. He denies any ongoing chest discomfort or difficulty breathing at this time. He notes his lower extremities appear similar to what they have appeared in the past. He has not complained of ongoing near syncope or syncope. He stated his main concern for palpitations. Objective Data Vital Signs: Vital Signs Temp Pulse Resp BP Pulse Ox 98.1 F 116 H 27 H 122/52 H 99 02/11/21 10:07 02/11/21 11:38 02/11/21 11:38 02/11/21 11:38 02/11/21 11:38 Oxygen Flow Rate (L/min) 5 Oxygen Delivery Method Nasal Cannula Weight: 394 lb 13.566 oz Body Mass Index (BMI) 51.3 Intake & Output: Intake and Output for Last 24 Hours 02/09/21 02/10/21 02/11/21 23:59 23:59 23:59 Intake Total 1250 / 1250 483 / 483 Output Total 2200 / 2200 750 / 750 Balance -950 / -950 -267 / -267 Lab / Micro Data Result Diagrams: 02/10/21 04:30 02/11/21 07:02 Labs: Laboratory Results - last 24 hr 02/09/21 02/10/21 02/10/21 17:17 12:58 15:38 Sodium Potassium Chloride Carbon Dioxide Anion Gap BUN Creatinine Estim Creat Clear Calc Est GFR (MDRD) Af Amer Est GFR (MDRD) Non-Af BUN/Creatinine Ratio Glucose Calcium Troponin I 0.086 H 0.083 H Urine Color Yellow Urine Clarity Cloudy Urine pH 6.0 Ur Specific [place] 1.015 Urine Protein 30 H Urine Glucose (UA) 1000 H Urine Ketones Negative Urine Occult Blood 25 H Urine Nitrite Negative Urine Bilirubin Negative Urine Urobilinogen Normal Ur Leukocyte Esterase 500 H Urine RBC 0-5 SEEN Urine WBC >100 SEEN Ur Squamous Epith Cells 0-5 SEEN Urine Bacteria 2+ Urine Mucus 0 SEEN 02/11/21 07:02 Sodium 139 Potassium 4.1 Chloride 106 Carbon Dioxide 26.0 Anion Gap 7 BUN 28 H Creatinine 1.57 H Estim Creat Clear Calc 53.08 Est GFR (MDRD) Af Amer 57 L Est GFR (MDRD) Non-Af 47 L BUN/Creatinine Ratio 17.8 Glucose 147 H Calcium 8.9 Troponin I Urine Color Urine Clarity Urine pH Ur Specific [place] Urine Protein Urine Glucose (UA) Urine Ketones Urine Occult Blood Urine Nitrite Urine Bilirubin Urine Urobilinogen Ur Leukocyte Esterase Urine RBC Urine WBC Ur Squamous Epith Cells Urine Bacteria Urine Mucus Micro: Microbiology 02/09/21 15:07 Blood Culture (Wb) - Anticubital Right Blood Culture - Preliminary No growth in 48 hours. 02/09/21 15:04 Blood Culture (Wb) - Right Forearm Blood Culture - Preliminary No growth in 48 hours. 02/09/21 17:17 Urine, Clean Catch Urine Culture - Final Mixed Gram Pos & Gram Neg Org 02/09/21 15:11 Nasal Secretion SARS-CoV-2 Antigen (Rapid) - Final Cardiology Labs/Tests 02/09/21 17:17: Urine Color Yellow, Urine Clarity Cloudy, Urine pH 6.0, Ur Specific [place] 1.015, Urine Protein 30 H, Urine Glucose (UA) 1000 H, Urine Ketones Negative, Urine Occult Blood 25 H, Urine Nitrite Negative, Urine Bilirubin Negative, Urine Urobilinogen Normal, Ur Leukocyte Esterase 500 H, Urine RBC 0-5 SEEN, Urine WBC >100 SEEN 02/10/21 12:58: Troponin I 0.086 H 02/10/21 15:38: Troponin I 0.083 H 02/11/21 07:02: Sodium 139, Potassium 4.1, Chloride 106, Carbon Dioxide 26.0, Anion Gap 7, BUN 28 H, Creatinine 1.57 H, Est GFR (MDRD) Af Amer 57 L, Est GFR (MDRD) Non-Af 47 L, BUN/Creatinine Ratio 17.8, Glucose 147 H, Calcium 8.9 Rhythm: Cardiac rhythm concerning for an underlying atrial flutter. Physical Exam Const alert and oriented x3 Orientation / Consciousness: awake HEENT normocephalic, head/scalp atraumatic and hearing grossly normal bilaterally Eyes PERRL, EOMs intact bilaterally and conjunctivae normal Neck full ROM and supple Chest inspection of chest normal Resp normal respiratory effort Cardio S1 normal heart sound and S2 normal heart sound Rhythm: abnormal rhythm irregularly irregular GI normal to inspection, nondistended, normoactive bowel sounds Extremity General Extremity: edema bilateral lower extremity Details: severe Skin Skin Narrative: Bilateral lower extremities: Erythemic appearing Psych mental status grossly normal Assessment & Plan Assessment/Plan (1) Atrial fibrillation and flutter: PLAN: The patient was evaluated Dr. Oro. Status post evaluation there was concern that the underlying cardiac rhythm was concerning for atrial flutter. The patient has continued medical management with a control therapy and the addition of antiarrhythmic therapy with oral amiodarone. However the patient's rate continues to be elevated. Thus an attempt will be made to assist with both rate control therapy and rhythm control therapy with IV amiodarone. Conversations have been held with the patient with respect to anticoagulant therapy. The patient refuses anticoagulant therapy with warfarin/Coumadin as well as the novel oral anticoagulant agents-as they make my stomach bleed . Thus it has been explained to the patient that without anticoagulant therapy, barring an urgent/emergent event, there is no immediate plans for any attempt at synchronized biphasic DC cardioversion to regain sinus rhythm. (2) NSTEMI (non-ST elevated myocardial infarction): PLAN: The patient has abnormal cardiac enzymes. The consensus is a type II event secondary to his underlying atrial dysrhythmia superimposed upon his other cardiovascular concerns. He will continue medical management as best as possible. (3) CAD (coronary artery disease): QUALIFIERS: Coronary Disease-Associated Artery/Lesion type: [place] artery [place] vs. transplanted heart: [place] heart Associated angina: without angina Qualified Code(s): I25.10 - Atherosclerotic heart disease of [place] coronary artery without angina pectoris PLAN: The patient has been evaluated in the past for concerns of CAD. He has declined further invasive evaluation in the past. If the patient's stance changes with respect to diagnostic cardiac catheterization then based upon the patient's multiple comorbidities and morbid obesity the patient should be considered for transfer to a tertiary care center for additional evaluation and care. (4) Cardiomyopathy: QUALIFIERS: Cardiomyopathy type: unspecified Qualified Code(s): I42.9 - Cardiomyopathy, unspecified PLAN: The patient has a history of a cardiomyopathy . Based upon his echocardiogram from 12-18-2020 his overall LV systolic function/LVEF was preserved. He does need to continue medical management. (5) CHF (congestive heart failure): QUALIFIERS: Heart failure type: right-sided PLAN: The patient has a history of CHF. Based upon his most recent echocardiogram and this would be considered diastolic mediated, however, there is also concern that the patient has secondary to his underlying pulmonary disease process pulmonary hypertension with cor pulmonale and what may be right heart failure. The patient will need to continue medical management as best as tolerated. (6) HLD (hyperlipidemia): QUALIFIERS: Hyperlipidemia type: mixed hyperlipidemia Qualified Code(s): E78.2 - Mixed hyperlipidemia PLAN: The patient will continue risk factor evaluation care as tolerated. (7) Hypertension: QUALIFIERS: Hypertension type: essential hypertension Qualified Code(s): I10 - Essential (primary) hypertension PLAN: The patient's blood pressure needs to be monitored as it may impact his medical management. (8) Pulmonary hypertension: PLAN: Based upon the patient's previous transthoracic echocardiogram his estimated RV systolic pressure was approximately 50 mmHg compatible with pulmonary hypertension. He will need to continue medical therapy and evaluation care of his ANIBAL, etc. (9) Cor pulmonale: PLAN: Again there is concern based upon the patient's underlying pulmonary disease process that he has pulmonary hypertension with cor pulmonale and right heart failure. He will need to continue cardiopulmonary support as best as possible. (10) ANIBAL (obstructive sleep apnea): PLAN: The patient should continue evaluation care per his other physicians. (11) Morbid obesity with BMI of 45.0-49.9, adult: PLAN: Unfortunately the patient remains morbidly obese. This does create issues with respect to additional diagnostic studies, etc., from a technical standpoint. Addt'l Comments Overall, at the present time, the patient will continue to be monitored. He will continue medical management with an attempt at advancing his rate limiting medicines and initiation of IV antiarrhythmic therapy such as IV amiodarone to assist with rate control and potentially to assist with regaining sinus rhythm, as best as possible. The patient has declined anticoagulant therapy and thus he is not a candidate for synchronized biphasic DC cardioversion barring unforeseen urgent/emergent event. Depending upon the patient's response to medical therapy he may need to be evaluated by electrophysiology for additional input regarding his concerns. This would have to be performed at a tertiary care center. The above was discussed and reviewed with the patient.
--- NOTE | 2021-02-11 12:47 | CASEMGMT ---
[place] assessment: Face to Face with patient for initial transition planning/care coordination assessment. [place]YE [place] introduced self and role at [facility], pt voices understanding and consents to assessment. Pt is sitting up in chair in no distress on room air. Pt is A/Ox4 and answers all questions appropriately. Care providers, pharmacy, and demographics verified. Presentation: Pt w/ increased SOB, hx COPD/Afib Admitting dx: CHF exac PCP: Trevor Specialists: Shorty, cardio; esteban Tello Preferred [facility]: [facility] [place] [facility] Living Will/HPOA: Pt has LW/HPOA and is aware that they are on file at [facility]. Pt states his sis-in-law, Odalys Sheffield, is HPOA. LNOK: Odalys Sheffield, sis-in-law/HPOA Living Arrangements: Pt states lives alone in 2nd floor apartment with 20 steps/railing in and states no concerns at home. Pt states is independent with ADL's. Pt does state that he is working on moving to mobile home soon as he is being evicted from apartment. Transportation: Pt states drives self and states no transportation concerns. DME/HHC: Pt states has the following DME: cane, walker, grab bars, nebulizer, and 4L nc thru [employer]. Pt states no hx of HHC or SNF. Pt states no concerns with going home at time of discharge. Pt is retired. Pt states does not smoke cigarettes amd rarely drinks ETOH. Pt states no further concerns/needs. CM to follow for PT/OT evals and any further discharge planning/needs. Advised pt to ask for CM if any further questions/concerns/needs arise, voices understanding. Pt Goal: Home Plan: [place]
[2021-02-11] MEDS: Acetaminophen 325 MG Tablet 650 MG PO (13:40)
[2021-02-11] MEDS: Amiodarone 360 MG in Dextrose 5% Viaflo Bag 192.8 ML 16.7 MG CONT INF (17:00)
[2021-02-11] MEDS: Ferrous Sulfate 325 MG Tablet PO (21:02)
[2021-02-11] MEDS: Clopidogrel Bisulfate 75 MG Tablet PO (21:02)
[2021-02-11] MEDS: Aspirin 81 MG TAB.CHEW PO (21:07)
[2021-02-11] MEDS: Atorvastatin Calcium 40 MG Tablet PO (21:08)
[2021-02-12] VITALS (25 sets, daily range): BP systolic 97–147; BP diastolic 68–92; PULSE 105–117; RESP 16–25; TEMP 36.3–36.6; O2SAT 95–100
[2021-02-12] MEDS: Amiodarone 360 MG in Dextrose 5% Viaflo Bag 192.8 ML 16.7 MG CONT INF (04:24)
[2021-02-12 05:35] LABS: Absolute Lymphocyte Count 0.97 X10^3/uL (0.83-4.51); Absolute Neutrophil Count 9.2 X10^3/uL (2.0-7.7); Basophil# 0.08 X10^3/uL; Basophil% 0.7 % (0-1); Eosinophils% 2.6 % (0-5); Hemoglobin 11.6 g/dL (13.0-16.5); Lymphocyte # 0.97 X10^3/ul (0.83-4.51); Lymphocyte % 8.3 % (19-41); Mean Corp Hgb Conc 31.4 g/dL (32-36); Mean Corpuscular Hgb 28.9 pg (27.0-32.0); Mean Corpuscular Volume 92.3 fL (80-94); Monocyte# 1.01 X10^3/uL; Monocyte% 8.7 % (0-10); NRBC Flagged by Analyzer 0 % (0-5); Neutrophil # 9.19 X10^3/uL (2.7-7.7); Platelet Count 241 K/mm3 (150-450); RBC Distribution Width CV 14.4 % (11.6-14.6); RBC Distribution Width SD 48.8 fl (35.1-43.9); Red Blood Count 4.01 M/mm3 (4.6-6.2); White Blood Count 11.6 K/mm3 (4.4-11.0)
[2021-02-12 05:56] LABS: Anion Gap 7 (5-15); BUN 34 mg/dL (7-18); Chloride 105 mmol/L (98-107); Creatinine, Serum 1.79 mg/dL (0.70-1.30); EST Glomerular Filtration Rate 40 mL/min (>60); Est Glom Filt Rate - Afr Amer 49 mL/min (>60); Estimated Creatinine Clearance 46.56 ml/min; Glucose 127 mg/dL (74-106); Potassium 4.6 mmol/L (3.5-5.1); Sodium Level 137 mmol/L (136-145)
[2021-02-12] MEDS: 0.9% Saline Lock 10 ML Syringe IV (06:22)
[2021-02-12] MEDS: Furosemide 40 MG/4 ML Vial IV (06:22)
[2021-02-12] MEDS: Ipratropium/Albuterol Sulfate 3 ML AMPUL.NEB INHALATION ×3 (07:16→19:15)
[2021-02-12] MEDS: Calcium (Elemental) 500 MG Tablet PO (08:24)
[2021-02-12] MEDS: predniSONE 10 MG Tablet PO (08:24)
[2021-02-12] MEDS: Losartan Potassium 50 MG Tablet PO (08:25)
[2021-02-12] MEDS: Potassium Chloride Oral Tablet 20 MEQ 40 MEQ PO ×2 (08:25→17:26)
[2021-02-12] MEDS: Metoprolol Tartrate 100 MG Tablet PO (08:25)
[2021-02-12] MEDS: Isosorbide Mononitrate 60 MG Tablet PO (08:25)
[2021-02-12] MEDS: Enoxaparin 40 MG/0.4 ML Syringe SC ×2 (08:30→20:56)
--- NOTE | 2021-02-12 09:12 | PCM.PN.CARD ---
Subjective Subjective The patient appears to be awake and alert. He denies any ongoing chest discomfort or acute respiratory related issues. He states his lower extremity edema has not significantly changed. Objective Data Vital Signs: Vital Signs Temp Pulse Resp BP Pulse Ox 97.9 F 117 H 18 131/74 H 99 02/12/21 08:31 02/12/21 08:31 02/12/21 08:31 02/12/21 08:31 02/12/21 07:19 Oxygen Flow Rate (L/min) 5 Oxygen Delivery Method Nasal Cannula Weight: 396 lb 9.785 oz Body Mass Index (BMI) 51.3 Intake & Output: Intake and Output for Last 24 Hours 02/10/21 02/11/21 02/12/21 23:59 23:59 23:59 Intake Total 1250 / 1250 1721.92 / 1738.62 278.93 / 278.93 Output Total 2200 / 2200 1650 / 1650 250 / 250 Balance -950 / -950 71.92 / 88.62 28.93 / 28.93 Lab / Micro Data Result Diagrams: 02/12/21 05:10 02/12/21 05:10 Labs: Laboratory Results - last 24 hr 02/12/21 02/12/21 05:10 05:10 WBC 11.6 H RBC 4.01 L Hgb 11.6 L Hct 37.0 L MCV 92.3 MCH 28.9 MCHC 31.4 L RDW Std Deviation 48.8 H RDW Coeff of Bunny 14.4 Plt Count 241 MPV 10.0 Immature Gran % (Auto) 0.700 Neut % (Auto) 79.0 H Lymph % (Auto) 8.3 L [place] % (Auto) 8.7 Eos % (Auto) 2.6 Baso % (Auto) 0.7 Absolute Neuts (auto) 9.2 H Absolute Lymphs (auto) 0.97 Nucleated RBC % 0 Sodium 137 Potassium 4.6 Chloride 105 Carbon Dioxide 25.0 Anion Gap 7 BUN 34 H Creatinine 1.79 H Estim Creat Clear Calc 46.56 Est GFR (MDRD) Af Amer 49 L Est GFR (MDRD) Non-Af 40 L BUN/Creatinine Ratio 19.0 Glucose 127 H Calcium 9.0 Micro: Microbiology 02/09/21 15:07 Blood Culture (Wb) - Anticubital Right Blood Culture - Preliminary No growth in 48 hours. 02/09/21 15:04 Blood Culture (Wb) - Right Forearm Blood Culture - Preliminary No growth in 48 hours. 02/09/21 17:17 Urine, Clean Catch Urine Culture - Final Mixed Gram Pos & Gram Neg Org 02/09/21 15:11 Nasal Secretion SARS-CoV-2 Antigen (Rapid) - Final Cardiology Labs/Tests 02/12/21 05:10: WBC 11.6 H, RBC 4.01 L, Hgb 11.6 L, Hct 37.0 L, MCV 92.3, MCH 28.9, MCHC 31.4 L, Plt Count 241, MPV 10.0, Immature Gran % (Auto) 0.700, Neut % (Auto) 79.0 H, Lymph % (Auto) 8.3 L, [place] % (Auto) 8.7, Eos % (Auto) 2.6, Baso % (Auto) 0.7, Absolute Neuts (auto) 9.2 H, Nucleated RBC % 0 02/12/21 05:10: Sodium 137, Potassium 4.6, Chloride 105, Carbon Dioxide 25.0, Anion Gap 7, BUN 34 H, Creatinine 1.79 H, Est GFR (MDRD) Af Amer 49 L, Est GFR (MDRD) Non-Af 40 L, BUN/Creatinine Ratio 19.0, Glucose 127 H, Calcium 9.0 Rhythm: Atrial flutter with a bundle branch block pattern Physical Exam Const alert, oriented x3 and healthy appearing Orientation / Consciousness: awake HEENT normocephalic, head/scalp atraumatic and hearing grossly normal bilaterally Eyes PERRL, EOMs intact bilaterally and conjunctivae normal Neck full ROM, supple, no JVD and no carotid bruits Chest inspection of chest normal Resp normal respiratory effort and clear to auscultation bilaterally Cardio S1 normal heart sound and S2 normal heart sound Palpation: normal PMI Rate: regular rate Rhythm: abnormal rhythm irregularly irregular Heart Sounds: S1 normal and S2 normal Peripheral Pulses: pulses 2+ throughout GI normal to inspection, nondistended, normoactive bowel sounds Extremity normal to inspection General Extremity: edema bilateral lower extremity Details: severe Skin Skin Narrative: Bilateral lower extremities: Erythemic appearing Psych mental status grossly normal Assessment & Plan Assessment/Plan (1) Atrial fibrillation and flutter: PLAN: The patient was evaluated Dr. Oro. Status post evaluation there was concern that the underlying cardiac rhythm was concerning for atrial flutter. The patient has continued medical management with a control therapy and the addition of antiarrhythmic therapy with oral amiodarone. However the patient's rate continues to be elevated. Thus an attempt was be made to assist with both rate control therapy and rhythm control therapy with IV amiodarone. However, the patient does not appear to have gained any significant rate control by this method. The patient states that he wants his IV amiodarone discontinued so that he would not have to be connected to a portable clinical research monitor so that he would be free to use the restroom when he needs to. The patient also states he is willing to attempt higher dose beta-krish therapy and/or additional agent such as digitalis acknowledging he knows he has an element of renal insufficiency but he states he is willing to take the risk if this assists with his rate control. Conversations have been held with the patient with respect to anticoagulant therapy. The patient refuses anticoagulant therapy with warfarin/Coumadin as well as the novel oral anticoagulant agents-as they make my stomach bleed . Thus it has been explained to the patient that without anticoagulant therapy, barring an urgent/emergent event, there is no immediate plans for any attempt at synchronized biphasic DC cardioversion to regain sinus rhythm. (2) NSTEMI (non-ST elevated myocardial infarction): PLAN: The patient has abnormal cardiac enzymes. The consensus is a type II event secondary to his underlying atrial dysrhythmia superimposed upon his other cardiovascular concerns. He will continue medical management as best as possible. (3) CAD (coronary artery disease): QUALIFIERS: Coronary Disease-Associated Artery/Lesion type: [place] artery [place] vs. transplanted heart: [place] heart Associated angina: without angina Qualified Code(s): I25.10 - Atherosclerotic heart disease of [place] coronary artery without angina pectoris PLAN: The patient has been evaluated in the past for concerns of CAD. He has declined further invasive evaluation in the past. If the patient's stance changes with respect to diagnostic cardiac catheterization then based upon the patient's multiple comorbidities and morbid obesity the patient should be considered for transfer to a tertiary care center for additional evaluation and care. (4) Cardiomyopathy: QUALIFIERS: Cardiomyopathy type: unspecified Qualified Code(s): I42.9 - Cardiomyopathy, unspecified PLAN: The patient has a history of a cardiomyopathy . Based upon his echocardiogram from 12-18-2020 his overall LV systolic function/LVEF was preserved. He does need to continue medical management. (5) CHF (congestive heart failure): QUALIFIERS: Heart failure type: right-sided PLAN: The patient has a history of CHF. Based upon his most recent echocardiogram and this would be considered diastolic mediated, however, there is also concern that the patient has secondary to his underlying pulmonary disease process pulmonary hypertension with cor pulmonale and what may be right heart failure. The patient will need to continue medical management as best as tolerated. (6) HLD (hyperlipidemia): QUALIFIERS: Hyperlipidemia type: mixed hyperlipidemia Qualified Code(s): E78.2 - Mixed hyperlipidemia PLAN: The patient will continue risk factor evaluation care as tolerated. (7) Hypertension: QUALIFIERS: Hypertension type: essential hypertension Qualified Code(s): I10 - Essential (primary) hypertension PLAN: The patient's blood pressure needs to be monitored as it may impact his medical management. (8) Pulmonary hypertension: PLAN: Based upon the patient's previous transthoracic echocardiogram his estimated RV systolic pressure was approximately 50 mmHg compatible with pulmonary hypertension. He will need to continue medical therapy and evaluation care of his ANIBAL, etc. (9) Cor pulmonale: PLAN: Again there is concern based upon the patient's underlying pulmonary disease process that he has pulmonary hypertension with cor pulmonale and right heart failure. He will need to continue cardiopulmonary support as best as possible. (10) ANIBAL (obstructive sleep apnea): PLAN: The patient should continue evaluation care per his other physicians. (11) Morbid obesity with BMI of 45.0-49.9, adult: PLAN: Unfortunately the patient remains morbidly obese. This does create issues with respect to additional diagnostic studies, etc., from a technical standpoint. Addt'l Comments Overall, at the present time, the patient states, as noted above, that he wants his IV amiodarone discontinued, but he is willing to attempt higher dose beta-krish therapy for assistance with rate control and he is willing to attempt additional agent such as digitalis knowing his underlying renal insufficiency, etc., and he does not want to proceed with any anticoagulant therapy. He states his main goal is to bring his heart rate under better control so that he can be released from the hospital as soon as possible. He was offered transfer to a tertiary care center for further electrophysiology evaluation/input regarding his cardiac dysrhythmia, etc., and he states that he will not allow himself to be transferred at this time to any tertiary care center.
[2021-02-12] MEDS: Digoxin 250 MCG/ML Ampul 500 MCG IV (10:15)
[2021-02-12] MEDS: Metoprolol Tartrate 50 MG Tablet PO (10:18)
[2021-02-12] MEDS: Amiodarone 200 MG Tablet PO ×4 (10:18→20:57)
--- NOTE | 2021-02-12 10:19 | CASEMGMT ---
Addendum entered by Jannet Godinez 02/12/21 12:33: Dr. Major spoke with pt regarding palliative and pt declines palliative referral. Lexa FISHMAN CM Original Note: [facility] palliative screening tool completed and pt does qualify for palliative referral but no referral made per Dr. Major as he states pt will not be agreeable or compliant. Lexa FISHMAN CM
--- NOTE | 2021-02-12 10:44 | CON.PCM.RE_ITS ---
Assessment & Plan Assessment/Plan (1) Acute kidney injury superimposed on chronic kidney disease: (2) Edema, peripheral: (3) CHF exacerbation: (4) Hypertension: (5) Stasis dermatitis of both legs: PLAN: Patient has CKD stage 2/3 ast baseline. Cr at baseline around 1.2- 1.4 mg/dl BABAK is likely prerenal from diuresis in patient with pulmonary HTN and possible right ventricle heart failure Cr is 1.79 mg/dl. 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 low salt diet and fluid restriction Cardiology is following to control HR BP well controlled. continue same BP medications for now Thank you for the consult HPI Consult Data Date of Consult: 02/12/21 HPI Narrative HPI Narrative: NIRALI ACHARYA, is a 65 M who PMH of extensive medical history as below Patient presented with worsening SOB, orthopnea . Patient has chronic RF on 5 L/M 02 at home from AN[place], COPD and morbid obesity. Patient has been followed by cardiology service for Afib to control HR. chest xray at admission showed mild pulmonary congestion and cardiomegaly. Patient is being treated with IV lasix to also control peripheral edema Renal team is consulted for BABAK. baseline Cr 1.2 mg/dl. Cr is up to 1.79 MG/DL. Patient is also on losartan Patient has been non compliant with physician treatment recs as he is now focusing on the quality of life No IV contrast exposure. No NSAIDs use Denied LUTs ROS: 12 system review is negative except exertional dyspnea and legs edema LLE>RLE [facility] Medical History (Updated 02/12/21 @ 10:[address] Gelacio Houston MD) Atrial flutter BPH (benign prostatic hypertrophy) CAD (coronary artery disease) Cardiomyopathy Chronic atrial fibrillation CKD (chronic kidney disease), stage II COPD (chronic obstructive pulmonary disease) Cor pulmonale CVA (cerebral vascular accident) (~2012) GERD (gastroesophageal reflux disease) History of cardioversion (~09/07/17) History of CVA (cerebrovascular accident) HLD (hyperlipidemia) Hypertension Left bundle branch block Morbid obesity with BMI of 45.0-49.9, adult NSTEMI (non-ST elevated myocardial infarction) ANIBAL (obstructive sleep apnea) Pulmonary hypertension Stasis dermatitis of both legs Vesico-colic fistula Home Medications albuterol sulfate 1 - 2 puff INHALATION Q4H PRN PRN 04/09/18 [History Last Taken 09/24/18 15:00] aspirin 81 mg PO QHS 04/09/18 [History Last Taken 09/24/18 02:30] atorvastatin 40 mg PO QHS 04/09/18 [History Last Taken 09/24/18 02:30] calcium carbonate 500 mg PO DAILY@0800 04/09/18 [History Last Taken 09/24/18 11:00] clopidogrel 75 mg PO QHS 04/09/18 [History Last Taken 09/24/18 02:30] ferrous sulfate 325 mg PO QHS 04/09/18 [History Last Taken 09/24/18 11:00] guaifenesin 800 mg PO BID PRN 09/23/18 [History Last Taken 09/24/18 11:00] ropinirole 0.5 mg tablet 2 tablet PO QHS PRN 30 Days #60 tab 02/13/19 [History Last Taken Unknown] Prednisone 10 mg PO DAILY 12/18/20 [History Last Taken Unknown] fluticasone propion-salmeterol 1 puff INHALATION BID 12/18/20 [History Last Taken Unknown] metoprolol succinate 50 mg PO QHS 12/18/20 [History Last Taken Unknown] furosemide 40 mg PO UD #120 tablet 12/20/20 [Rx Last Taken Unknown] ipratropium-albuterol 3 ml INHALATION 4X/DAY #1 12/20/20 [Rx Last Taken Unknown] isosorbide mononitrate 60 mg PO DAILY #30 tablet 12/20/20 [Rx Last Taken Unknown] losartan 50 mg PO BID #60 tablet 12/20/20 [Rx Last Taken Unknown] potassium chloride 40 meq PO BIDCM #120 tablet 12/20/20 [Rx Last Taken Unknown] Allergy/AdvReac Type Severity Reaction Status Date / Time cashew nut Allergy Vomiting Verified 02/09/21 14:49 cortisone [Cortisone] Allergy Itching-ONLY Verified 02/09/21 14:49 TO JOINT INJECTABLE KIND Family History Mother Cancer Lung CA Brother Sudden cardiac age 60 Father Heart disease from cardiomyopathy Surgical History Hx of decompression of ulnar nerve Social History Smoking Status: Former smoker second hand exposure: No alcohol intake: never substance use type: does not use caffeine: Yes (4+/day) what type of physical activity do you participate in: none Physical Exam Const alert and oriented x3 General Appearance: cooperative HEENT Head and Scalp: normocephalic and atraumatic Eyes PERRL and EOMs intact bilaterally Neck full ROM, supple and no JVD Resp normal respiratory effort, normal air movement and clear to auscultation bilaterally Cardio Rate: regular rate and tachycardic Rhythm: abnormal rhythm Heart Sounds: S1 normal and S2 normal GI normal to inspection, nondistended, normoactive bowel sounds and soft to palpation Back/Spine no CVA tenderness Extremity General Extremity: edema bilateral lower extremity (LLE> RLE) Details: severe Neuro oriented x3 and CN's II-XII intact bilaterally Psych Insight: insight good Lab / Micro Data Result Diagrams: 02/12/21 05:10 02/12/21 05:10 Labs: Laboratory Results - last 24 hr 02/12/21 02/12/21 05:10 05:10 WBC 11.6 H RBC 4.01 L Hgb 11.6 L Hct 37.0 L MCV 92.3 MCH 28.9 MCHC 31.4 L RDW Std Deviation 48.8 H RDW Coeff of Bunny 14.4 Plt Count 241 MPV 10.0 Immature Gran % (Auto) 0.700 Neut % (Auto) 79.0 H Lymph % (Auto) 8.3 L [place] % (Auto) 8.7 Eos % (Auto) 2.6 Baso % (Auto) 0.7 Absolute Neuts (auto) 9.2 H Absolute Lymphs (auto) 0.97 Nucleated RBC % 0 Sodium 137 Potassium 4.6 Chloride 105 Carbon Dioxide 25.0 Anion Gap 7 BUN 34 H Creatinine 1.79 H Estim Creat Clear Calc 46.56 Est GFR (MDRD) Af Amer 49 L Est GFR (MDRD) Non-Af 40 L BUN/Creatinine Ratio 19.0 Glucose 127 H Calcium 9.0 Micro: Microbiology 02/09/21 15:07 Blood Culture - Preliminary Blood Culture (Wb) - Anticubital Right No growth in 48 hours. 02/09/21 15:04 Blood Culture - Preliminary Blood Culture (Wb) - Right Forearm No growth in 48 hours. 02/09/21 17:17 Urine Culture - Final Urine, Clean Catch Mixed Gram Pos & Gram Neg Org
--- NOTE | 2021-02-12 10:57 | PCM.CONS.R ---
HPI Consult Data Date of Consult: 02/12/21 HPI Narrative HPI Narrative: NIRALI ACHARYA, is a 65 M who presents [facility] Medical History (Updated 02/12/21 @ 10:[address] Gelacio Houston MD) Atrial flutter BPH (benign prostatic hypertrophy) CAD (coronary artery disease) Cardiomyopathy Chronic atrial fibrillation CKD (chronic kidney disease), stage II COPD (chronic obstructive pulmonary disease) Cor pulmonale CVA (cerebral vascular accident) (~2012) GERD (gastroesophageal reflux disease) History of cardioversion (~09/07/17) History of CVA (cerebrovascular accident) HLD (hyperlipidemia) Hypertension Left bundle branch block Morbid obesity with BMI of 45.0-49.9, adult NSTEMI (non-ST elevated myocardial infarction) ANIBAL (obstructive sleep apnea) Pulmonary hypertension Stasis dermatitis of both legs Vesico-colic fistula Home Medications albuterol sulfate 1 - 2 puff INHALATION Q4H PRN PRN 04/09/18 [History Last Taken 09/24/18 15:00] aspirin 81 mg PO QHS 04/09/18 [History Last Taken 09/24/18 02:30] atorvastatin 40 mg PO QHS 04/09/18 [History Last Taken 09/24/18 02:30] calcium carbonate 500 mg PO DAILY@0800 04/09/18 [History Last Taken 09/24/18 11:00] clopidogrel 75 mg PO QHS 04/09/18 [History Last Taken 09/24/18 02:30] ferrous sulfate 325 mg PO QHS 04/09/18 [History Last Taken 09/24/18 11:00] guaifenesin 800 mg PO BID PRN 09/23/18 [History Last Taken 09/24/18 11:00] ropinirole 0.5 mg tablet 2 tablet PO QHS PRN 30 Days #60 tab 02/13/19 [History Last Taken Unknown] Prednisone 10 mg PO DAILY 12/18/20 [History Last Taken Unknown] fluticasone propion-salmeterol 1 puff INHALATION BID 12/18/20 [History Last Taken Unknown] metoprolol succinate 50 mg PO QHS 12/18/20 [History Last Taken Unknown] furosemide 40 mg PO UD #120 tablet 12/20/20 [Rx Last Taken Unknown] ipratropium-albuterol 3 ml INHALATION 4X/DAY #1 12/20/20 [Rx Last Taken Unknown] isosorbide mononitrate 60 mg PO DAILY #30 tablet 12/20/20 [Rx Last Taken Unknown] losartan 50 mg PO BID #60 tablet 12/20/20 [Rx Last Taken Unknown] potassium chloride 40 meq PO BIDCM #120 tablet 12/20/20 [Rx Last Taken Unknown] Allergy/AdvReac Type Severity Reaction Status Date / Time cashew nut Allergy Vomiting Verified 02/09/21 14:49 cortisone [Cortisone] Allergy Itching-ONLY Verified 02/09/21 14:49 TO JOINT INJECTABLE KIND Family History Mother Cancer Lung CA Brother Sudden cardiac age 60 Father Heart disease from cardiomyopathy Surgical History Hx of decompression of ulnar nerve Social History Smoking Status: Former smoker second hand exposure: No alcohol intake: never substance use type: does not use caffeine: Yes (4+/day) what type of physical activity do you participate in: none Lab / Micro Data Result Diagrams: 02/12/21 05:10 02/12/21 05:10 Labs: Laboratory Results - last 24 hr 02/12/21 02/12/21 05:10 05:10 WBC 11.6 H RBC 4.01 L Hgb 11.6 L Hct 37.0 L MCV 92.3 MCH 28.9 MCHC 31.4 L RDW Std Deviation 48.8 H RDW Coeff of Bunny 14.4 Plt Count 241 MPV 10.0 Immature Gran % (Auto) 0.700 Neut % (Auto) 79.0 H Lymph % (Auto) 8.3 L [place] % (Auto) 8.7 Eos % (Auto) 2.6 Baso % (Auto) 0.7 Absolute Neuts (auto) 9.2 H Absolute Lymphs (auto) 0.97 Nucleated RBC % 0 Sodium 137 Potassium 4.6 Chloride 105 Carbon Dioxide 25.0 Anion Gap 7 BUN 34 H Creatinine 1.79 H Estim Creat Clear Calc 46.56 Est GFR (MDRD) Af Amer 49 L Est GFR (MDRD) Non-Af 40 L BUN/Creatinine Ratio 19.0 Glucose 127 H Calcium 9.0 Micro: Microbiology 02/09/21 15:07 Blood Culture - Preliminary Blood Culture (Wb) - Anticubital Right No growth in 48 hours. 02/09/21 15:04 Blood Culture - Preliminary Blood Culture (Wb) - Right Forearm No growth in 48 hours. 02/09/21 17:17 Urine Culture - Final Urine, Clean Catch Mixed Gram Pos & Gram Neg Org
--- NOTE | 2021-02-12 13:29 | PCM.PN.HOSP ---
Documented by User: Corey MICHELLE 02/12/21 13:46 Subjective Subjective Patient is a 65-year-old male who is sleeping in chair, alert and oriented x3. Patient requested to remain sleeping and to return later for evaluation. Objective Data Objective Data Vital Signs: Vital Signs Temp Pulse Resp BP Pulse Ox 97.8 F 114 H 24 H 97/71 99 02/12/21 10:18 02/12/21 13:01 02/12/21 13:01 02/12/21 10:18 02/12/21 10:18 Oxygen Flow Rate (L/min) 5 Oxygen Delivery Method Nasal Cannula Weight: 396 lb 9.785 oz Body Mass Index (BMI) 51.3 Intake & Output: Intake and Output for Last 24 Hours 02/10/21 02/11/21 02/12/21 23:59 23:59 23:59 Intake Total 1250 / 1250 1721.92 / 1738.62 941.18 / 941.18 Output Total 2200 / 2200 1650 / 1650 1250 / 1250 Balance -950 / -950 71.92 / 88.62 -308.82 / -308.82 Lab / Micro Data Result Diagrams: 02/12/21 05:10 02/12/21 05:10 Labs: Laboratory Results - last 24 hr 02/12/21 02/12/21 05:10 05:10 WBC 11.6 H RBC 4.01 L Hgb 11.6 L Hct 37.0 L MCV 92.3 MCH 28.9 MCHC 31.4 L RDW Std Deviation 48.8 H RDW Coeff of Bunny 14.4 Plt Count 241 MPV 10.0 Immature Gran % (Auto) 0.700 Neut % (Auto) 79.0 H Lymph % (Auto) 8.3 L [place] % (Auto) 8.7 Eos % (Auto) 2.6 Baso % (Auto) 0.7 Absolute Neuts (auto) 9.2 H Absolute Lymphs (auto) 0.97 Nucleated RBC % 0 Sodium 137 Potassium 4.6 Chloride 105 Carbon Dioxide 25.0 Anion Gap 7 BUN 34 H Creatinine 1.79 H Estim Creat Clear Calc 46.56 Est GFR (MDRD) Af Amer 49 L Est GFR (MDRD) Non-Af 40 L BUN/Creatinine Ratio 19.0 Glucose 127 H Calcium 9.0 Micro: Microbiology 02/09/21 15:07 Blood Culture (Wb) - Anticubital Right Blood Culture - Preliminary No growth in 48 hours. 02/09/21 15:04 Blood Culture (Wb) - Right Forearm Blood Culture - Preliminary No growth in 48 hours. 02/09/21 17:17 Urine, Clean Catch Urine Culture - Final Mixed Gram Pos & Gram Neg Org 02/09/21 15:11 Nasal Secretion SARS-CoV-2 Antigen (Rapid) - Final Physical Exam Narrative See subjective. Const alert and no apparent distress HEENT head/scalp atraumatic and moist oral mucous membranes Head and Scalp: normocephalic Eyes PERRL, EOMs intact bilaterally and conjunctivae normal Neck no lymphadenopathy, supple and no JVD Resp normal respiratory effort Cardio no murmurs and no JVD Rate: tachycardic GI normal to inspection, nondistended, normoactive bowel sounds, soft to palpation and non-tender Extremity normal to inspection, full ROM and no clubbing, cyanosis or edema Skin no rashes or lesions noted, no wounds, skin turgor normal and no jaundice Neuro CN's II-XII intact bilaterally Psych affect normal Assessment & Plan Assessment/Plan (1) CHF exacerbation: (2) NSTEMI (non-ST elevated myocardial infarction): (3) Shortness of breath: (4) COPD (chronic obstructive pulmonary disease): (5) Atrial fibrillation and flutter: (6) Stasis dermatitis of both legs: (7) BPH (benign prostatic hypertrophy): (8) Edema, peripheral: (9) Acute kidney injury superimposed on chronic kidney disease: (10) Hypertension: (11) CAD (coronary artery disease): QUALIFIERS: Associated angina: without angina Coronary Disease-Associated Artery/Lesion type: [place] artery [place] vs. transplanted heart: [place] heart Qualified Code(s): I25.10 - Atherosclerotic heart disease of [place] coronary artery without angina pectoris (12) GERD (gastroesophageal reflux disease): (13) HLD (hyperlipidemia): QUALIFIERS: Hyperlipidemia type: mixed hyperlipidemia Qualified Code(s): E78.2 - Mixed hyperlipidemia (14) Chest pain: (15) Morbid obesity with BMI of 45.0-49.9, adult: (16) Pulmonary hypertension: PLAN: See subjective for patient presentation. Heart rate has still been elevated maintaining between 110 and 130. Patient does not want any aggressive interventions, and is only agreeable to medical management. Once heart rate has been controlled, patient eligible for discharge home. 1) Acute on chronic CHF exacerbation with preserved ejection fraction Cardiology and nephrology following. Lasix decreased due to worsening creatinine, per nephrology. Mildly elevated troponins throughout cycle on admission. BNP 330.0. Echocardiogram completed on 12/20/2020 demonstrated normal LV systolic function and size, an estimated EF of 55% and an RVSP of 55 mmHg consistent with pulmonary hypertension and evidence of diastolic dysfunction. CXR demonstrates mild cardiac enlargement and central pulmonary vascular congestion consistent with stable CHF. Cardiology following, medication changes as follows. Blood cultures demonstrate no growth. Urine culture demonstrates colonization of mixed gram-positive and gram-negative organisms. Plan; Lopressor increased to 100 mg p.o. twice daily, amiodarone 20 mg p.o. 3 times daily initiated, losartan decreased to 50 mg p.o. daily, continue IV Lasix 40 mg p.o. twice daily, continue Imdur 60 mg p.o. daily, continue aspirin. 2) Sinus Tachycardia Patient has had a sustained tachycardia since 02/09/21. Cardiology following as above. DC cardioversion will not be completed as it is currently not indicated, and patient does not want to initiate anticoagulation. Plan; amiodarone infusion discontinued per patient request. Continue amiodarone 200 mg p.o. 4 times daily, metoprolol increased to 150 mg p.o. twice daily. 3) CAD Cardiology following, risk factor modification recommended. No invasive cardiac approach indicated. Continue aspirin, Plavix and metoprolol. 4) COPD Chest x-ray as above. Hold home albuterol, fluticasone, ipratropium. Continue prednisone. Guaifenesine as needed. 5) HTN Continue losartan, hydralazine as needed, Lasix as above. 6) Hyperlipidemia Continue statin, 7) Hx of CVA Continue statin, aspirin and Plavix. 8) Hyperglycemia on admission Blood glucose 147 this morning, 159 on admission. Hemoglobin A1c 6.4, within normal limits. 10) BABAK on CKD 2/3 Creatinine currently 1.79, worse from admission. Likely secondary to over aggressive diuresis. Plan; Lasix as above, possibly hold losartan on 02/13 if creatinine continues to rise. Continue to monitor BMP. DVT Prophylaxis - Lovenox SC. Patient seen by Corey Rowe PA-C, under the supervision of Dr. Major. Documented by User: Dr. Kelechi Major MD 02/12/21 16:25 Subjective Subjective Heart rate shows sinus rhythm in 110. Multiple PVCs on compliance monitor. Patient still feels shortness of breath. Declined palliative care. Objective Data Lab / Micro Data Result Diagrams: 02/12/21 05:10 02/12/21 05:10 Physical Exam Narrative Seen and examined. Mild short of breath General: Alert, Oriented x3, Cooperative HEENT: Atraumatic, PERRLA, EOMI, Normocephalic Oral: No Gingival or Mucosal Lesions/ Ulcerations Neck: Supple, No JVD, Negative Carotid Bruits Lungs: Air entry diminished in bilateral lung bases. No crepitation/rhonchi Cardiovascular: Sinus rhythm with PVCs normal S1 and S2. No murmurs Abdomen: Bowel Sounds Present, Soft, Non Tender, Non-Distended : No renal angle tenderness. No suprapubic tenderness. Extremities: Bilateral lower extremity lymphedema, pitting and nonpitting edema. Skin: Lower legs on Mp wrap bandage. Musculoskeletal: No Tenderness to Palpation of Joints or Extremities Neurological: Cranial nerves II-XII grossly intact, Deep Tendon Reflexes 2+/4 and Symmetrical, Neuro grossly intact Psych/Mental Status: Normal affect. Assessment & Plan Assessment/Plan (1) CHF (congestive heart failure): QUALIFIERS: Heart failure type: right-sided PLAN: This patient was seen in conjunction with VIVIANA Mcneill. I have independently interviewed and examined the patient and reviewed pertinent history, examination findings, laboratory and plan of management. I have reviewed the note and agree with the documented findings with the few additional points. In brief, patient is admitted for acute on chronic CHF exacerbation with diastolic heart failure/HFpEF: Patient is admitted in PCU. Serial troponin enzymes is elevated but trending down suggestive of type II ischemia secondary to CHF. BNP 330 but may be falsely low because of morbid obesity. Echo on 12/2020 shows EF 55%, RVSP 35 mmHg consistent with moderate pulmonary hypertension. Patient seen by brand activation manager and oral amiodarone converted to IV amiodarone drip. 02/12: Cardiology follow-up reviewed. IV amiodarone discontinued on patient's request. Metoprolol dose increased to 150 mg twice daily. Amiodarone oral 200 mg p.o. 4 times daily. Increase in the serum creatinine therefore BABAK probably prerenal from diuresis on baseline CKD stage IIIA from pulmonary hypertension/right ventricular heart failure: Lasix morning dose was kept in frequency changed to every 12 hourly. Nephrology consult reviewed. Patient also has history of coronary artery disease: Aspirin, Plavix, metoprolol, losartan. COPD: Bronchodilator, prednisone, fluticasone. Other comorbidities include hypertension, dyslipidemia, history of CVA and morbid obesity: A1c 6.4 history of prediabetes Rest as mentioned above. I have discussed my assessment with VIVIANA Mcneill and orders have been reviewed. Visit Charges Inpatient E&M: 23058 Subs Hosp L2
[2021-02-12] MEDS: LORazepam 1 MG Tablet PO (13:46)
[2021-02-12] MEDS: Pramipexole Di-HCl 0.5 MG Tablet PO (16:03)
[2021-02-12] MEDS: Furosemide 40 MG Tablet PO (17:27)
[2021-02-12] MEDS: Clopidogrel Bisulfate 75 MG Tablet PO ×2 (20:56→20:58)
[2021-02-12] MEDS: Metoprolol Tartrate 50 MG Tablet 150 MG PO (20:57)
[2021-02-12] MEDS: Atorvastatin Calcium 40 MG Tablet PO (20:57)
[2021-02-12] MEDS: Ferrous Sulfate 325 MG Tablet PO (20:57)
[2021-02-12] MEDS: Aspirin 81 MG TAB.CHEW PO (20:58)
[2021-02-13] VITALS (17 sets, daily range): BP systolic 92–142; BP diastolic 54–91; PULSE 80–114; RESP 16–28; TEMP 36.3–36.8; O2SAT 98–100
[2021-02-13] MEDS: Ipratropium/Albuterol Sulfate 3 ML AMPUL.NEB INHALATION ×3 (07:27→19:14)
[2021-02-13 07:42] LABS: Anion Gap 5 (5-15); BUN 39 mg/dL (7-18); BUN/Creat Ratio 24.7 RATIO (10-20); Calcium,Total 9.6 mg/dL (8.5-10.1); Chloride 106 mmol/L (98-107); Creatinine, Serum 1.58 mg/dL (0.70-1.30); EST Glomerular Filtration Rate 47 mL/min (>60); Est Glom Filt Rate - Afr Amer 57 mL/min (>60); Estimated Creatinine Clearance 52.75 ml/min; Glucose 128 mg/dL (74-106); Potassium 5.1 mmol/L (3.5-5.1); Sodium Level 138 mmol/L (136-145)
[2021-02-13] MEDS: Calcium (Elemental) 500 MG Tablet PO (08:03)
[2021-02-13] MEDS: Potassium Chloride Oral Tablet 20 MEQ 40 MEQ PO (08:04)
--- NOTE | 2021-02-13 08:48 | PCM.PN.HOSP ---
Documented by User: Mikki Gardner NP, [employer] 02/13/21 12:27 Subjective Subjective Patient seen and examined. Agitated this morning and reports significant anxiety. Frustrated he is unable to undergo cardioversion as discussed by cardiology this morning due to patient declining anticoagulation. He denies chest pain, shortness of breath. Objective Data Objective Data Vital Signs: Vital Signs Temp Pulse Resp BP Pulse Ox 97.4 F L 111 H 16 142/91 H 100 02/13/21 04:00 02/13/21 06:33 02/13/21 04:00 02/13/21 04:00 02/13/21 04:00 Oxygen Flow Rate (L/min) 5 Oxygen Delivery Method Nasal Cannula Weight: 397 lb 7.895 oz Body Mass Index (BMI) 51.3 Intake & Output: Intake and Output for Last 24 Hours 02/11/21 02/12/21 02/13/21 23:59 23:59 23:59 Intake Total 1721.92 / 1738.62 941.18 / 1041.18 160 / 160 Output Total 1650 / 1650 1250 / 2000 1350 / 1350 Balance 71.92 / 88.62 -308.82 / -958.82 -1190 / -1190 Lab / Micro Data Result Diagrams: 02/12/21 05:10 02/13/21 05:58 Labs: Laboratory Results - last 24 hr 02/13/21 05:58 Sodium 138 Potassium 5.1 Chloride 106 Carbon Dioxide 27.0 Anion Gap 5 BUN 39 H Creatinine 1.58 H Estim Creat Clear Calc 52.75 Est GFR (MDRD) Af Amer 57 L Est GFR (MDRD) Non-Af 47 L BUN/Creatinine Ratio 24.7 H Glucose 128 H Calcium 9.6 Micro: Microbiology 02/09/21 15:07 Blood Culture (Wb) - Anticubital Right Blood Culture - Preliminary No growth in 48 hours. 02/09/21 15:04 Blood Culture (Wb) - Right Forearm Blood Culture - Preliminary No growth in 48 hours. 02/09/21 17:17 Urine, Clean Catch Urine Culture - Final Mixed Gram Pos & Gram Neg Org 02/09/21 15:11 Nasal Secretion SARS-CoV-2 Antigen (Rapid) - Final Physical Exam Const alert, oriented x3 and no apparent distress Orientation / Consciousness: awake, oriented to person, oriented to place and oriented to time HEENT normocephalic and moist oral mucous membranes Eyes PERRL, EOMs intact bilaterally and conjunctivae normal Neck no lymphadenopathy Resp clear to auscultation bilaterally Auscultation: diminished lung sounds Cardio Rhythm: other Other Details: Atrial fibrillation, tachycardic Peripheral Pulses: pulses 2+ throughout GI normal to inspection, nondistended, normoactive bowel sounds, non-tender and non-distended Extremity normal to inspection General Extremity: edema bilateral lower extremity Details: severe (Lymphedema) Skin no rashes or lesions noted Lesions: no lesions Rashes: no rashes Trauma: no lacerations or abrasions Neuro CN's II-XII intact bilaterally, no focal motor deficits, no sensory deficits noted and deep tendon reflexes 2+ bilaterally Psych mental status grossly normal and affect normal Appearance: unkempt Mood & Affect: anxious Assessment & Plan Assessment/Plan (1) CHF exacerbation: PLAN: 1. Acute on chronic hypoxic respiratory failure secondary to acute on chronic heart failure with preserved ejection fraction-BNP 330. Chest x-ray consistent with congestion. Echocardiogram demonstrates an EF of 55%, RVSP estimated to be 50 mmHg. Evidence of diastolic dysfunction. Increase IV Lasix to 40 mg 3 times daily. Strict I&O. Daily weight. Continue supplement oxygen to maintain O2 sat above 90%. Patient wears chronic supplemental oxygen related to chronic CHF, COPD as well as untreated ANIBAL. 2. Paroxysmal atrial fibrillation/atrial flutter with RVR-history of JODY/cardioversion August 2017. Cardiology consulted. Patient refuses anticoagulation due to history of gastric ulcer/GI bleed. Currently on oral amiodarone, metoprolol and Cardizem. Monitor rate. 3. NSTEMI/Chronic elevated troponin- Follows with Dr. Oro. Cardiology consulted. Patient has refused cardiac catheterization in the past. Again refusing cardiac cath during admission. Suspect demand ischemia/type II event secondary to A. fib with RVR/CHF. Continue medical management including aspirin, statin, Plavix, nitrates, beta-krish. 4. Chronic iron deficiency anemia-continue iron supplementation. GI workup has been recommended in the past for anemia and patient has refused. 5. Chronic COPD with chronic hypoxic respiratory failure-no acute exacerbation. Patient follows with Dr. Tello as outpatient. Continue albuterol and DuoNeb aerosols. 6. Obstructive sleep apnea-patient recommended BIPAP following prior PSG, refusing treatment. 7. Chronic kidney disease stage IIIa-slight increase in creatinine 02/12/21 however no acute kidney injury. Nephrology following. Trend BMP. 8. History of CVA-No focal deficits. Continue aspirin, Plavix, statin. 9. Hyperlipidemia-continue statin. 10. Hypertension-stable, continue current regimen including isosorbide, losartan, metoprolol. 11. Morbid obesity-BMI 51.0. Encouraged lifestyle and diet modifications. Nutrition consult. DVT prophylaxis-Lovenox sc This patient was seen by LINWOOD Patel under the supervision of Dr. Major. Documented by User: Dr. Kelechi Major MD 02/13/21 14:57 Subjective Subjective Patient heart rate was in 110s in the morning currently 106. Patient had long discussion regarding heart rate control, shortness of breath and palpitation and cardioversion with Dr. Toledo. I emphasized that he needs about 3 to 4 weeks of anticoagulant before attempt of cardioversion. Objective Data Lab / Micro Data Result Diagrams: 02/12/21 05:10 02/13/21 05:58 Physical Exam Narrative Seen and examined. Mild short of breath General: Alert, Oriented x3, Cooperative HEENT: Atraumatic, PERRLA, EOMI, Normocephalic Oral: No Gingival or Mucosal Lesions/ Ulcerations Neck: Supple, No JVD, Negative Carotid Bruits Lungs: Air entry diminished in bilateral lung bases. No crepitation/rhonchi Cardiovascular: Sinus rhythm alternates with A fib, irregular rhythm, PVCs, normal S1 and S2. No murmurs Abdomen: Bowel Sounds Present, Soft, Non Tender, Non-Distended : No renal angle tenderness. No suprapubic tenderness. Extremities: Bilateral lower extremity lymphedema, pitting and nonpitting edema. Skin: Lower legs on Mp wrap bandage. Musculoskeletal: No Tenderness to Palpation of Joints or Extremities Neurological: Cranial nerves II-XII grossly intact, Deep Tendon Reflexes 2+/4 and Symmetrical, Neuro grossly intact Psych/Mental Status: Normal affect. Assessment & Plan Assessment/Plan (1) CHF exacerbation: (2) Atrial fibrillation and flutter: PLAN: n brief, patient is admitted for acute on chronic CHF exacerbation with diastolic heart failure/HFpEF: Patient is admitted in PCU. Serial troponin enzymes is elevated but trending down suggestive of type II ischemia secondary to CHF. BNP 330 but may be falsely low because of morbid obesity. Echo on 12/2020 shows EF 55%, RVSP 35 mmHg consistent with moderate pulmonary hypertension. Patient seen by facility maintenance supervisor and oral amiodarone converted to IV amiodarone drip. 02/12: Cardiology follow-up reviewed. IV amiodarone discontinued on patient's request. Metoprolol dose increased to 150 mg twice daily. Amiodarone oral 200 mg p.o. 4 times daily. Increase in the serum creatinine therefore BABAK probably prerenal from diuresis on baseline CKD stage IIIA from pulmonary hypertension/right ventricular heart failure: Lasix morning dose was kept in frequency changed to every 12 hourly. Nephrology consult reviewed. 02/13: Discussed with the facility maintenance supervisor. Patient is started on Cardizem. Patient complains of anxiety and tension after long discussion. Overall seems better controlled. Patient refused for anticoagulation due to gastric ulcer/GI bleed. Patient had refused GI work-up including endoscopy for work-up for anemia. Other comorbidities as mentioned above. BUN/creatinine profile is on baseline, improved from yesterday Patient also has history of coronary artery disease: Aspirin, Plavix, metoprolol, losartan. COPD: Bronchodilator, prednisone, fluticasone. Other comorbidities include hypertension, dyslipidemia, history of CVA and morbid obesity: A1c 6.4 history of prediabetes Rest as mentioned above. Charges/Coding Visit Charges Inpatient E&M: 19084 Subs Hosp L2
[2021-02-13] MEDS: Enoxaparin 40 MG/0.4 ML Syringe SC (09:20)
[2021-02-13] MEDS: Amiodarone 200 MG Tablet PO ×3 (09:21→20:32)
[2021-02-13] MEDS: Metoprolol Tartrate 50 MG Tablet 150 MG PO ×2 (09:21→20:32)
[2021-02-13] MEDS: Isosorbide Mononitrate 60 MG Tablet PO (09:21)
[2021-02-13] MEDS: Losartan Potassium 50 MG Tablet PO (09:21)
[2021-02-13] MEDS: Furosemide 40 MG Tablet PO ×3 (09:21→20:31)
[2021-02-13] MEDS: predniSONE 10 MG Tablet PO (09:22)
--- NOTE | 2021-02-13 09:25 | PN.CARD_ITS ---
Subjective Subjective The patient remains awake and alert. He denies any new acute chest discomfort or acute respiratory issues. Objective Data Vital Signs: Vital Signs Temp Pulse Resp BP Pulse Ox 97.7 F L 110 H 16 109/69 98 02/13/21 09:16 02/13/21 09:21 02/13/21 09:16 02/13/21 09:16 02/13/21 09:16 Oxygen Flow Rate (L/min) 5 Oxygen Delivery Method Nasal Cannula Weight: 397 lb 7.895 oz Body Mass Index (BMI) 51.3 Intake & Output: Intake and Output for Last 24 Hours 02/11/21 02/12/21 02/13/21 23:59 23:59 23:59 Intake Total 1721.92 / 1738.62 941.18 / 1041.18 160 / 160 Output Total 1650 / 1650 1250 / 2000 1350 / 1350 Balance 71.92 / 88.62 -308.82 / -958.82 -1190 / -1190 Lab / Micro Data Result Diagrams: 02/12/21 05:10 02/13/21 05:58 Labs: Laboratory Results - last 24 hr 02/13/21 05:58 Sodium 138 Potassium 5.1 Chloride 106 Carbon Dioxide 27.0 Anion Gap 5 BUN 39 H Creatinine 1.58 H Estim Creat Clear Calc 52.75 Est GFR (MDRD) Af Amer 57 L Est GFR (MDRD) Non-Af 47 L BUN/Creatinine Ratio 24.7 H Glucose 128 H Calcium 9.6 Micro: Microbiology 02/09/21 15:07 Blood Culture (Wb) - Anticubital Right Blood Culture - Preliminary No growth in 48 hours. 02/09/21 15:04 Blood Culture (Wb) - Right Forearm Blood Culture - Preliminary No growth in 48 hours. 02/09/21 17:17 Urine, Clean Catch Urine Culture - Final Mixed Gram Pos & Gram Neg Org 02/09/21 15:11 Nasal Secretion SARS-CoV-2 Antigen (Rapid) - Final Cardiology Labs/Tests 02/13/21 05:58: Sodium 138, Potassium 5.1, Chloride 106, Carbon Dioxide 27.0, Anion Gap 5, BUN 39 H, Creatinine 1.58 H, Est GFR (MDRD) Af Amer 57 L, Est GFR (MDRD) Non-Af 47 L, BUN/Creatinine Ratio 24.7 H, Glucose 128 H, Calcium 9.6 Rhythm: Atrial flutter Physical Exam Const alert, oriented x3 and healthy appearing Orientation / Consciousness: awake HEENT normocephalic, head/scalp atraumatic and hearing grossly normal bilaterally Eyes PERRL, EOMs intact bilaterally and conjunctivae normal Neck full ROM, supple, no JVD and no carotid bruits Chest inspection of chest normal Resp normal respiratory effort and clear to auscultation bilaterally Cardio S1 normal heart sound and S2 normal heart sound Palpation: normal PMI Rate: regular rate Rhythm: abnormal rhythm irregularly irregular Heart Sounds: S1 normal and S2 normal Peripheral Pulses: pulses 2+ throughout GI normal to inspection, nondistended, normoactive bowel sounds Extremity normal to inspection General Extremity: edema bilateral lower extremity Details: severe Skin Skin Narrative: Bilateral lower extremities: Erythemic appearing Psych mental status grossly normal Assessment & Plan Assessment/Plan (1) Atrial fibrillation and flutter: PLAN: The patient was evaluated Dr. Oro. Status post evaluation there was concern that the underlying cardiac rhythm was concerning for atrial flu tter. The patient is continuing rate control therapy. His beta-krish dose has been increased. He did receive one dose of IV digitalis. He is continue to oral amiodarone therapy. He has continued at an elevated heart rate. He states he has been on diltiazem in the past without adverse event. Thus, as he is continued with higher heart rates despite the aforementioned medical therapy, this could be reinitiated in attempt to help bring his heart rate under better control. The patient has stated in the past that he does not want anticoagulant therapy especially with warfarin/Coumadin or other agents such as Xarelto or similar to Xarelto based upon a history of peptic ulcer disease and upper gastrointestinal bleeding. Thus it has been explained to the patient that without anticoagulant therapy, barring an urgent/emergent event, there is no immediate plans for any attempt at synchronized biphasic DC cardioversion to regain sinus rhythm. A lengthy discussion was held with the patient with respect to his diagnosis, attempts at rate control therapy, concerns with anticoagulant therapy, and that without anticoagulant therapy he is not an ideal candidate, barring an urgent/emergent event, for an attempt at synchronized biphasic DC cardioversion based upon the potential risks of thromboembolic related issues, CVA, etc. The patient has been offered transfer to a tertiary care center for additional cardiovascular opinion from electrophysiology. However the patient declines to allow himself to be transferred to another institution. (2) NSTEMI (non-ST elevated myocardial infarction): PLAN: The patient has abnormal cardiac enzymes. The consensus is a type II event secondary to his underlying atrial dysrhythmia superimposed upon his other cardiovascular concerns. He will continue medical management as best as possible. (3) CAD (coronary artery disease): QUALIFIERS: Coronary Disease-Associated Artery/Lesion type: [place] artery [place] vs. transplanted heart: [place] heart Associated angina: without angina Qualified Code(s): I25.10 - Atherosclerotic heart disease of [place] coronary artery without angina pectoris PLAN: The patient has been evaluated in the past for concerns of CAD. He has declined further invasive evaluation in the past. If the patient's stance changes with respect to diagnostic cardiac catheterization then based upon the patient's multiple comorbidities and morbid obesity the patient should be considered for transfer to a tertiary care center for additional evaluation and care. (4) Cardiomyopathy: QUALIFIERS: Cardiomyopathy type: unspecified Qualified Code(s): I42.9 - Cardiomyopathy, unspecified PLAN: The patient has a history of a cardiomyopathy . Based upon his echocardiogram from 12-18-2020 his overall LV systolic function/LVEF was preserved. He does need to continue medical management. (5) CHF (congestive heart failure): QUALIFIERS: Heart failure type: right-sided PLAN: The patient has a history of CHF. Based upon his most recent echocardiogram and this would be considered diastolic mediated, however, there is also concern that the patient has secondary to his underlying pulmonary disease process pulmonary hypertension with cor pulmonale and what may be right heart failure. The patient will need to continue medical management as best as tolerated. (6) HLD (hyperlipidemia): QUALIFIERS: Hyperlipidemia type: mixed hyperlipidemia Qualified Code(s): E78.2 - Mixed hyperlipidemia PLAN: The patient will continue risk factor evaluation care as tolerated. (7) Hypertension: QUALIFIERS: Hypertension type: essential hypertension Qualified Code(s): I10 - Essential (primary) hypertension PLAN: The patient's blood pressure needs to be monitored as it may impact his medical management. (8) Pulmonary hypertension: PLAN: Based upon the patient's previous transthoracic echocardiogram his estimated RV systolic pressure was approximately 50 mmHg compatible with pulmonary hypertension. He will need to continue medical therapy and evaluation care of his ANIBAL, etc. (9) Cor pulmonale: PLAN: Again there is concern based upon the patient's underlying pulmonary disease process that he has pulmonary hypertension with cor pulmonale and right heart failure. He will need to continue cardiopulmonary support as best as possible. (10) ANIBAL (obstructive sleep apnea): PLAN: The patient should continue evaluation care per his other physicians. (11) Morbid obesity with BMI of 45.0-49.9, adult: PLAN: Unfortunately the patient remains morbidly obese. This does create issues with respect to additional diagnostic studies, etc., from a technical standpoint. Addt'l Comments The patient's case was discussed at great length with the patient. The patient's case was discussed with Dr. Major. This note was generated using a voice recognition system and there may be incorrect words, spelling or punctuation that were not noted when reviewing the office note prior to saving.
--- NOTE | 2021-02-13 10:03 | PN.RENAL_ITS ---
Subjective Subjective Patient is awake alert oriented No worsening breathing. still with legs edema Weight is stable at 180 kg Objective Data Objective Data Vital Signs: Vital Signs Temp Pulse Resp BP Pulse Ox 97.7 F L 110 H 16 109/69 98 02/13/21 09:16 02/13/21 09:21 02/13/21 09:16 02/13/21 09:16 02/13/21 09:16 Oxygen Flow Rate (L/min) 5 Oxygen Delivery Method Nasal Cannula Weight: 180.3 kg Body Mass Index (BMI) 51.3 Intake & Output: Intake and Output for Last 24 Hours 02/11/21 02/12/21 02/13/21 23:59 23:59 23:59 Intake Total 1721.92 / 1738.62 941.18 / 1041.18 160 / 160 Output Total 1650 / 1650 1250 / 2000 1350 / 1350 Balance 71.92 / 88.62 -308.82 / -958.82 -1190 / -1190 Lab / Micro Data Result Diagrams: 02/12/21 05:10 02/13/21 05:58 Labs: Laboratory Results - last 24 hr 02/13/21 05:58 Sodium 138 Potassium 5.1 Chloride 106 Carbon Dioxide 27.0 Anion Gap 5 BUN 39 H Creatinine 1.58 H Estim Creat Clear Calc 52.75 Est GFR (MDRD) Af Amer 57 L Est GFR (MDRD) Non-Af 47 L BUN/Creatinine Ratio 24.7 H Glucose 128 H Calcium 9.6 Micro: Microbiology 02/09/21 15:07 Blood Culture (Wb) - Anticubital Right Blood Culture - Preliminary No growth in 48 hours. 02/09/21 15:04 Blood Culture (Wb) - Right Forearm Blood Culture - Preliminary No growth in 48 hours. 02/09/21 17:17 Urine, Clean Catch Urine Culture - Final Mixed Gram Pos & Gram Neg Org 02/09/21 15:11 Nasal Secretion SARS-CoV-2 Antigen (Rapid) - Final Physical Exam Const alert and oriented x3 General Appearance: cooperative Eyes PERRL and EOMs intact bilaterally Neck full ROM, supple and no JVD Resp normal respiratory effort, normal air movement and clear to auscultation bilaterally Cardio Rate: regular rate and tachycardic Rhythm: abnormal rhythm Heart Sounds: S1 normal and S2 normal GI normal to inspection, nondistended, normoactive bowel sounds and soft to p alpation Back/Spine no CVA tenderness Extremity General Extremity: edema bilateral lower extremity (LLE> RLE) Details: severe Neuro oriented x3 and CN's II-XII intact bilaterally Psych Insight: insight good Assessment & Plan Assessment/Plan (1) Acute kidney injury superimposed on chronic kidney disease: (2) Edema, peripheral: (3) CHF exacerbation: (4) Hypertension: (5) Stasis dermatitis of both legs: PLAN: Patient has CKD stage 2/3 ast baseline. Cr at baseline around 1.2- 1.4 mg/dl BABAK is likely prerenal from diuresis in patient with pulmonary HTN and possible right ventricle heart failure Cr improved with lowering lasix dose. Patient still with significant legs edema. Weight is not decreasing Will increase lasix dose to TID. Will have to accept higher baseline Cr to control volume in this patient Will d/c KCl supplement. K 5.1 this am Ok to continue losartan No need for STOCK HOLDER Check RFP in am low salt diet and fluid restriction Cardiology is following to control HR. Not cadidate for CV because he is refusing AC BP well controlled. continue same BP medications for now Renal team will continue to follow Call if any question Gelacio Houston MD
[2021-02-13] MEDS: dilTIAZem CD 240 MG Capsule PO (10:29)
--- NOTE | 2021-02-13 14:18 | CASEMGMT ---
Social Work SW received referral as pt is being evicted from his home. SW met with pt and introduced self and role of SW. Pt immediately inquiring if SW can assist pt in setting up a [employer] account. SW informed pt that SW is unable to assist with this. SW inquired about pt concerns. Pt stating he is getting evicted from his apartment on Wednesday. He has purchased a trailer and he has arranged for help moving his things and has no concern with housing upon return home. Pt is concerned as he has very limited funds, medical bills and the trailer needs repairs. [facility]ING provided information on Medicaid and pt absolutely refuses to apply for Medicaid. SW discussed assistance programs from [employer], [employer] and [employer] [place]. Written information and phone numbers for all programs provided. Pt appreciative of information. No other concerns with returning home at this time. MOUNIKA Knight
[2021-02-13] MEDS: Pramipexole Di-HCl 0.5 MG Tablet PO (15:19)
[2021-02-13] MEDS: Atorvastatin Calcium 40 MG Tablet PO (20:31)
[2021-02-13] MEDS: Aspirin 81 MG TAB.CHEW PO (20:31)
[2021-02-13] MEDS: Ferrous Sulfate 325 MG Tablet PO (20:31)
[2021-02-14] VITALS (14 sets, daily range): BP systolic 102–147; BP diastolic 44–69; PULSE 62–110; RESP 18–24; TEMP 36.2–36.4; O2SAT 98–100
[2021-02-14 04:39] LABS: Absolute Neutrophil Count 8.2 X10^3/uL (2.0-7.7); Basophil# 0.05 X10^3/uL; Basophil% 0.5 % (0-1); Eosinophils% 2.9 % (0-5); Hematocrit 37.4 % (40-54); Hemoglobin 11.6 g/dL (13.0-16.5); Lymphocyte % 7.7 % (19-41); Mean Corpuscular Hgb 28.6 pg (27.0-32.0); Mean Corpuscular Volume 92.3 fL (80-94); Mean Platelet Vol. 10.3 fl (6.2-12.0); Monocyte# 0.88 X10^3/uL; Monocyte% 8.5 % (0-10); NRBC Flagged by Analyzer 0 % (0-5); Neutrophil # 8.23 X10^3/uL (2.7-7.7); Neutrophil % 79.4 % (47-70); Platelet Count 272 K/mm3 (150-450); RBC Distribution Width CV 14.4 % (11.6-14.6); RBC Distribution Width SD 48.7 fl (35.1-43.9); Red Blood Count 4.05 M/mm3 (4.6-6.2); White Blood Count 10.4 K/mm3 (4.4-11.0)
[2021-02-14 05:01] LABS: Anion Gap 5 (5-15); BUN 44 mg/dL (7-18); BUN/Creat Ratio 25.4 RATIO (10-20); Calcium,Total 9.7 mg/dL (8.5-10.1); Chloride 105 mmol/L (98-107); Creatinine, Serum 1.73 mg/dL (0.70-1.30); EST Glomerular Filtration Rate 42 mL/min (>60); Est Glom Filt Rate - Afr Amer 51 mL/min (>60); Estimated Creatinine Clearance 48.17 ml/min; Glucose 126 mg/dL (74-106); Potassium 4.7 mmol/L (3.5-5.1); Sodium Level 139 mmol/L (136-145)
[2021-02-14] MEDS: Amiodarone 200 MG Tablet PO ×3 (05:27→21:22)
[2021-02-14] MEDS: Furosemide 40 MG Tablet PO ×3 (05:27→21:21)
[2021-02-14] MEDS: Calcium (Elemental) 500 MG Tablet PO (07:28)
--- NOTE | 2021-02-14 08:45 | PN.CARD_ITS ---
Subjective Subjective The patient remains awake and alert. He has been up and ambulating in his room. He has denied any ongoing chest discomfort. He has had no acute respiratory issues superimposed upon his chronic respiratory issues. He continues with his marked lower extremity peripheral pitting edema. Objective Data Vital Signs: Vital Signs Temp Pulse Resp BP Pulse Ox 97.1 F L 110 H 18 147/69 H 100 02/14/21 04:37 02/14/21 06:36 02/14/21 04:37 02/14/21 04:37 02/14/21 04:37 Oxygen Flow Rate (L/min) 5 Oxygen Delivery Method Nasal Cannula Weight: 397 lb 11.422 oz Body Mass Index (BMI) 51.3 Intake & Output: Intake and Output for Last 24 Hours 02/12/21 02/13/21 02/14/21 23:59 23:59 23:59 Intake Total 941.18 / 1041.18 960 / 1310 470 / 470 Output Total 1250 / 2000 2550 / 3100 1100 / 1100 Balance -308.82 / -958.82 -1590 / -1790 -630 / -630 Lab / Micro Data Result Diagrams: 02/14/21 04:15 02/14/21 04:15 Labs: Laboratory Results - last 24 hr 02/14/21 02/14/21 04:15 04:15 WBC 10.4 RBC 4.05 L Hgb 11.6 L Hct 37.4 L MCV 92.3 MCH 28.6 MCHC 31.0 L RDW Std Deviation 48.7 H RDW Coeff of Bunny 14.4 Plt Count 272 MPV 10.3 Immature Gran % (Auto) 1.000 H Neut % (Auto) 79.4 H Lymph % (Auto) 7.7 L [place] % (Auto) 8.5 Eos % (Auto) 2.9 Baso % (Auto) 0.5 Absolute Neuts (auto) 8.2 H Absolute Lymphs (auto) 0.80 L Nucleated RBC % 0 Sodium 139 Potassium 4.7 Chloride 105 Carbon Dioxide 29.0 Anion Gap 5 BUN 44 H Creatinine 1.73 H Estim Creat Clear Calc 48.17 Est GFR (MDRD) Af Amer 51 L Est GFR (MDRD) Non-Af 42 L BUN/Creatinine Ratio 25.4 H Glucose 126 H Calcium 9.7 Micro: Microbiology 02/09/21 15:07 Blood Culture (Wb) - Anticubital Right Blood Culture - Preliminary No growth in 48 hours. 02/09/21 15:04 Blood Culture (Wb) - Right Forearm Blood Culture - Preliminary No growth in 48 hours. 02/09/21 17:17 Urine, Clean Catch Urine Culture - Final Mixed Gram Pos & Gram Neg Org 02/09/21 15:11 Nasal Secretion SARS-CoV-2 Antigen (Rapid) - Final Cardiology Labs/Tests 02/14/21 04:15: WBC 10.4, RBC 4.05 L, Hgb 11.6 L, Hct 37.4 L, MCV 92.3, MCH 28.6, MCHC 31.0 L, Plt Count 272, MPV 10.3, Immature Gran % (Auto) 1.000 H, Neut % (Auto) 79.4 H, Lymph % (Auto) 7.7 L, [place] % (Auto) 8.5, Eos % (Auto) 2.9, Baso % (Auto) 0.5, Absolute Neuts (auto) 8.2 H, Nucleated RBC % 0 02/14/21 04:15: Sodium 139, Potassium 4.7, Chloride 105, Carbon Dioxide 29.0, Anion Gap 5, BUN 44 H, Creatinine 1.73 H, Est GFR (MDRD) Af Amer 51 L, Est GFR (MDRD) Non-Af 42 L, BUN/Creatinine Ratio 25.4 H, Glucose 126 H, Calcium 9.7 Rhythm: Atrial flutter with variable ventricular response Physical Exam Const alert, oriented x3 and healthy appearing Orientation / Consciousness: awake HEENT normocephalic, head/scalp atraumatic and hearing grossly normal bilaterally Eyes PERRL, EOMs intact bilaterally and conjunctivae normal Neck full ROM, supple, no JVD and no carotid bruits Chest inspection of chest normal Resp normal respiratory effort and clear to auscultation bilaterally Cardio S1 normal heart sound and S2 normal heart sound Palpation: normal PMI Rate: other Other Details: Variable Rhythm: abnormal rhythm irregularly irregular Heart Sounds: S1 normal and S2 normal Peripheral Pulses: pulses 2+ throughout GI normal to inspection, nondistended, normoactive bowel sounds Extremity normal to inspection General Extremity: edema bilateral lower extremity Details: severe Skin Skin Narrative: Bilateral lower extremities: Erythemic appearing Psych mental status grossly normal Assessment & Plan Assessment/Plan (1) Atrial fibrillation and flutter: PLAN: The patient was evaluated Dr. Oro. Status post evaluation there was concern that the underlying cardiac rhythm was concerning for atrial flutter. The patient is continuing rate control therapy. He is continuing his beta-krish therapy. He has restarted his diltiazem therapy. He continues with an oral amiodarone taper. He has heart rate, overall, does appear to be somewhat improved where he is demonstrating on telemetry monitoring ventricular rates in the 70s, 80s, 90s, as well as [id number], as opposed to continually running 110+. He has also been advised of concerns with respect to advancing his rate limiting medication doses even higher based upon the concern of potential future bra dycardia. Thus he has been counseled on attempting to balance his medications and his heart rate to avoid significant bradycardia and significant tachycardia. The patient has stated in the past that he does not want anticoagulant therapy especially with warfarin/Coumadin or other agents such as Xarelto or similar to Xarelto based upon a history of peptic ulcer disease and upper gastrointestinal bleeding. Thus it has been explained to the patient that without anticoagulant therapy, barring an urgent/emergent event, there is no immediate plans for any attempt at synchronized biphasic DC cardioversion to regain sinus rhythm. A lengthy discussion was held with the patient with respect to his diagnosis, attempts at rate control therapy, concerns with anticoagulant therapy, and that without anticoagulant therapy he is not an ideal candidate, barring an urgent/emergent event, for an attempt at synchronized biphasic DC cardioversion based upon the potential risks of thromboembolic related issues, CVA, etc. The patient has been offered on multiple occasions transfer to a tertiary care center for additional cardiovascular opinion from electrophysiology. However the patient declines to allow himself to be transferred to another institution. Thus, at the present time, the patient will continue his current medical therapy as it does appear he has had some improvement in his heart rate. Depending upon his heart rate response over time his medications may need to be adjusted. (2) NSTEMI (non-ST elevated myocardial infarction): PLAN: The patient has abnormal cardiac enzymes. The consensus is a type II event secondary to his underlying atrial dysrhythmia superimposed upon his other cardiovascular concerns. He will continue medical management as best as possible. (3) CAD (coronary artery disease): QUALIFIERS: Coronary Disease-Associated Artery/Lesion type: [place] artery [place] vs. transplanted heart: [place] heart Associated angina: without angina Qualified Code(s): I25.10 - Atherosclerotic heart disease of [place] coronary artery without angina pectoris PLAN: The patient has been evaluated in the past for concerns of CAD. He has declined further invasive evaluation in the past. If the patient's stance changes with respect to diagnostic cardiac catheterization then based upon the patient's multiple comorbidities and morbid obesity the patient should be considered for transfer to a tertiary care center for additional evaluation and care. (4) Cardiomyopathy: QUALIFIERS: Cardiomyopathy type: unspecified Qualified Code(s): I42.9 - Cardiomyopathy, unspecified PLAN: The patient has a history of a cardiomyopathy . Based upon his echocardiogram from 12-18-2020 his overall LV systolic function/LVEF was preserved. He does need to continue medical management. (5) CHF (congestive heart failure): QUALIFIERS: Heart failure type: right-sided PLAN: The patient has a history of CHF. Based upon his most recent echocardiogram and this would be considered diastolic mediated, however, there is also concern that the patient has secondary to his underlying pulmonary disease process pulmonary hypertension with cor pulmonale and what may be right heart failure. The patient will need to continue medical management as best as tolerated. (6) HLD (hyperlipidemia): QUALIFIERS: Hyperlipidemia type: mixed hyperlipidemia Qualified Code(s): E78.2 - Mixed hyperlipidemia PLAN: The patient will continue risk factor evaluation care as tolerated. (7) Hypertension: QUALIFIERS: Hypertension type: essential hypertension Qualified Code(s): I10 - Essential (primary) hypertension PLAN: The patient's blood pressure needs to be monitored as it may impact his medical management. (8) Pulmonary hypertension: PLAN: Based upon the patient's previous transthoracic echocardiogram his estimated RV systolic pressure was approximately 50 mmHg compatible with pulmonary hypertension. He will need to continue medical therapy and evaluation care of his ANIBAL, etc. (9) Cor pulmonale: PLAN: Again there is concern based upon the patient's underlying pulmonary disease process that he has pulmonary hypertension with cor pulmonale and right heart failure. He will need to continue cardiopulmonary support as best as possible. (10) ANIBAL (obstructive sleep apnea): PLAN: The patient should continue evaluation care per his other physicia ns. (11) Morbid obesity with BMI of 45.0-49.9, adult: PLAN: Unfortunately the patient remains morbidly obese. This does create issues with respect to additional diagnostic studies, etc., from a technical standpoint. Addt'l Comments The patient's case has been extensively discussed with the patient once again. The patient's case has been discussed with Dr. Major of the [facility] hospitalist team as well as Dr. Houston of nephrology as well as the [facility] PCU staff. This note was generated using a voice recognition system and there may be incorrect words, spelling or punctuation that were not noted when reviewing the office note prior to saving.
[2021-02-14] MEDS: Metoprolol Tartrate 50 MG Tablet 150 MG PO ×2 (09:12→21:21)
[2021-02-14] MEDS: predniSONE 10 MG Tablet PO (09:13)
[2021-02-14] MEDS: Isosorbide Mononitrate 60 MG Tablet PO (09:13)
[2021-02-14] MEDS: dilTIAZem CD 240 MG Capsule PO (09:13)
[2021-02-14] MEDS: Losartan Potassium 50 MG Tablet PO (09:13)
[2021-02-14] MEDS: Acetaminophen 325 MG Tablet 650 MG PO ×2 (09:19→18:30)
[2021-02-14] MEDS: LORazepam 1 MG Tablet PO ×2 (09:19→18:30)
--- NOTE | 2021-02-14 10:06 | PN.RENAL_ITS ---
Subjective Subjective no worsening breathing. No nausea No vomiting Objective Data Objective Data Vital Signs: Vital Signs Temp Pulse Resp BP Pulse Ox 97.3 F L 90 18 114/67 99 02/14/21 09:10 02/14/21 09:12 02/14/21 09:10 02/14/21 09:10 02/14/21 09:10 Oxygen Flow Rate (L/min) 5 Oxygen Delivery Method Nasal Cannula Weight: 180.4 kg Body Mass Index (BMI) 51.3 Intake & Output: Intake and Output for Last 24 Hours 02/12/21 02/13/21 02/14/21 23:59 23:59 23:59 Intake Total 941.18 / 1041.18 960 / 1310 470 / 470 Output Total 1250 / 2000 2550 / 3100 1100 / 1100 Balance -308.82 / -958.82 -1590 / -1790 -630 / -630 Lab / Micro Data Result Diagrams: 02/14/21 04:15 02/14/21 04:15 Labs: Laboratory Results - last 24 hr 02/14/21 02/14/21 04:15 04:15 WBC 10.4 RBC 4.05 L Hgb 11.6 L Hct 37.4 L MCV 92.3 MCH 28.6 MCHC 31.0 L RDW Std Deviation 48.7 H RDW Coeff of Bunny 14.4 Plt Count 272 MPV 10.3 Immature Gran % (Auto) 1.000 H Neut % (Auto) 79.4 H Lymph % (Auto) 7.7 L [place] % (Auto) 8.5 Eos % (Auto) 2.9 Baso % (Auto) 0.5 Absolute Neuts (auto) 8.2 H Absolute Lymphs (auto) 0.80 L Nucleated RBC % 0 Sodium 139 Potassium 4.7 Chloride 105 Carbon Dioxide 29.0 Anion Gap 5 BUN 44 H Creatinine 1.73 H Estim Creat Clear Calc 48.17 Est GFR (MDRD) Af Amer 51 L Est GFR (MDRD) Non-Af 42 L BUN/Creatinine Ratio 25.4 H Glucose 126 H Calcium 9.7 Micro: Microbiology 02/09/21 15:07 Blood Culture (Wb) - Anticubital Right Blood Culture - Prel iminary No growth in 48 hours. 02/09/21 15:04 Blood Culture (Wb) - Right Forearm Blood Culture - Preliminary No growth in 48 hours. 02/09/21 17:17 Urine, Clean Catch Urine Culture - Final Mixed Gram Pos & Gram Neg Org 02/09/21 15:11 Nasal Secretion SARS-CoV-2 Antigen (Rapid) - Final Physical Exam Const alert and oriented x3 General Appearance: cooperative Eyes PERRL and EOMs intact bilaterally Neck full ROM, supple and no JVD Resp normal respiratory effort, normal air movement and clear to auscultation bilaterally Cardio Rate: regular rate and tachycardic Rhythm: abnormal rhythm Heart Sounds: S1 normal and S2 normal GI normal to inspection, nondistended, normoactive bowel sounds and soft to palpation Back/Spine no CVA tenderness Extremity General Extremity: edema bilateral lower extremity (LLE> RLE) Details: severe Neuro oriented x3 and CN's II-XII intact bilaterally Psych Insight: insight good Assessment & Plan Assessment/Plan (1) Acute kidney injury superimposed on chronic kidney disease: (2) Edema, peripheral: (3) CHF exacerbation: (4) Hypertension: (5) Stasis dermatitis of both legs: (6) Tachycardia: PLAN: Patient has CKD stage 2/3 ast baseline. Cr at baseline around 1.2- 1.4 mg/dl BABAK is likely prerenal from diuresis in patient with pulmonary HTN and possible right ventricle heart failure. Will have to accept higher baseline Cr to control volume in this patient Cr is slightly higher today as expected with higher lasix dose Will continue the same lasix dose TID for now Ok to continue losartan No need for SENIOR POLICY ADVISOR Check RFP in am low salt diet and fluid restriction Cardiology is following to control HR. Not candidate for CV because he is refusing AC BP well controlled. continue same BP medications for now Renal team will continue to follow Call if any question Gelacio Houston MD
[2021-02-14] MEDS: Ipratropium/Albuterol Sulfate 3 ML AMPUL.NEB INHALATION ×2 (13:02→18:48)
--- NOTE | 2021-02-14 13:19 | PCM.PN.HOSP ---
Documented by User: Mikki Gardner NP, RHEOSTAT ASSEMBLER-C 02/14/21 13:28 Subjective Subjective Patient seen and examined. Agitated this morning, does not understand why he cannot undergo cardioversion. States he will give it 1 more day and then he is leaving regardless if he is discharged or not. He denies new symptoms or complaints. Objective Data Objective Data Vital Signs: Vital Signs Temp Pulse Resp BP Pulse Ox 97.3 F L 108 H 18 114/67 99 02/14/21 09:10 02/14/21 10:41 02/14/21 09:10 02/14/21 09:10 02/14/21 09:10 Oxygen Flow Rate (L/min) 5 Oxygen Delivery Method Nasal Cannula Weight: 397 lb 11.422 oz Body Mass Index (BMI) 51.3 Intake & Output: Intake and Output for Last 24 Hours 02/12/21 02/13/21 02/14/21 23:59 23:59 23:59 Intake Total 941.18 / 1041.18 960 / 1310 910 / 910 Output Total 1250 / 2000 2550 / 3100 1900 / 1900 Balance -308.82 / -958.82 -1590 / -1790 -990 / -990 Lab / Micro Data Result Diagrams: 02/14/21 04:15 02/14/21 04:15 Labs: Laboratory Results - last 24 hr 02/14/21 02/14/21 04:15 04:15 WBC 10.4 RBC 4.05 L Hgb 11.6 L Hct 37.4 L MCV 92.3 MCH 28.6 MCHC 31.0 L RDW Std Deviation 48.7 H RDW Coeff of Bunny 14.4 Plt Count 272 MPV 10.3 Immature Gran % (Auto) 1.000 H Neut % (Auto) 79.4 H Lymph % (Auto) 7.7 L [place] % (Auto) 8.5 Eos % (Auto) 2.9 Baso % (Auto) 0.5 Absolute Neuts (auto) 8.2 H Absolute Lymphs (auto) 0.80 L Nucleated RBC % 0 Sodium 139 Potassium 4.7 Chloride 105 Carbon Dioxide 29.0 Anion Gap 5 BUN 44 H Creatinine 1.73 H Estim Creat Clear Calc 48.17 Est GFR (MDRD) Af Amer 51 L Est GFR (MDRD) Non-Af 42 L BUN/Creatinine Ratio 25.4 H Glucose 126 H Calcium 9.7 Micro: Microbiology 02/09/21 15:07 Blood Culture (Wb) - Anticubital Right Blood Culture - Preliminary No growth in 48 hours. 02/09/21 15:04 Blood Culture (Wb) - Right Forearm Blood Culture - Preliminary No growth in 48 hours. 02/09/21 17:17 Urine, Clean Catch Urine Culture - Final Mixed Gram Pos & Gram Neg Org 02/09/21 15:11 Nasal Secretion SARS-CoV-2 Antigen (Rapid) - Final Physical Exam Const alert, oriented x3 and no apparent distress Orientation / Consciousness: awake, oriented to person, oriented to place and oriented to time HEENT normocephalic and moist oral mucous membranes Eyes PERRL, EOMs intact bilaterally and conjunctivae normal Neck no lymphadenopathy Resp clear to auscultation bilaterally Auscultation: diminished lung sounds Cardio Rhythm: other Other Details: Atrial fibrillation, rate improved Peripheral Pulses: pulses 2+ throughout GI normal to inspection, nondistended, normoactive bowel sounds, non-tender and non-distended Extremity normal to inspection General Extremity: edema bilateral lower extremity Details: severe (Lymphedema) Skin no rashes or lesions noted Lesions: no lesions Rashes: no rashes Trauma: no lacerations or abrasions Neuro CN's II-XII intact bilaterally, no focal motor deficits, no sensory deficits noted and deep tendon reflexes 2+ bilaterally Psych Appearance: unkempt Mood & Affect: anxious and irritable Assessment & Plan Assessment/Plan (1) CHF exacerbation: PLAN: 1. Acute on chronic hypoxic respiratory failure secondary to acute on chronic heart failure with preserved ejection fraction-BNP 330. Chest x-ray consistent with congestion. Echocardiogram demonstrates an EF of 55%, RVSP estimated to be 50 mmHg. Evidence of diastolic dysfunction. IV Lasix to 40 mg 3 times daily. Strict I&O. Daily weight. Continue supplement oxygen to maintain O2 sat above 90%. Patient wears chronic supplemental oxygen related to chronic CHF, COPD as well as untreated ANIBAL. 2. Paroxysmal atrial fibrillation/atrial flutter with RVR-history of JODY/cardioversion August 2017. Cardiology consulted. Patient refuses anticoagulation due to history of gastric ulcer/GI bleed. Currently on oral amiodarone, metoprolol and Cardizem. Monitor rate. 3. NSTEMI/Chronic elevated troponin- Follows with Dr. Oro. Cardiology consulted. Patient has refused cardiac catheterization in the past. Again refusing cardiac cath during admission. Suspect demand ischemia/type II event secondary to A. fib with RVR/CHF. Continue medical management including aspirin, statin, Plavix, nitrates, beta-krish. 4. Chronic iron deficiency anemia-continue iron supplementation. GI workup has been recommended in the past for anemia and patient has refused. 5. Chronic COPD with chronic hypoxic respiratory failure-no acute exacerbation. Patient follows with Dr. Tello as outpatient. Continue albuterol and DuoNeb aerosols. 6. Obstructive sleep apnea-patient recommended BIPAP following prior PSG, refusing treatment. 7. Chronic kidney disease stage IIIa-slight increase in creatinine however no acute kidney injury. Nephrology following. Trend BMP. 8. History of CVA-No focal deficits. Continue aspirin, Plavix, statin. 9. Hyperlipidemia-continue statin. 10. Hypertension-stable, continue current regimen including isosorbide, losartan, metoprolol. 11. Morbid obesity-BMI 51.0. Encouraged lifestyle and diet modifications. Nutrition consult. DVT prophylaxis-Lovenox sc This patient was seen by LINWOOD Patel under the supervision of Dr. Major. Documented by User: Dr. Kelechi Major MD 02/14/21 15:37 Subjective Subjective Patient heart rate is still variable but controlled in 90s. 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 Irregular heartbeat Objective Data Lab / Micro Data Result Diagrams: 02/14/21 04:15 02/14/21 04:15 Physical Exam Narrative Seen and examined. Mild short of breath General: Alert, Oriented x3, Cooperative HEENT: Atraumatic, PERRLA, EOMI, Normocephalic Oral: No Gingival or Mucosal Lesions/ Ulcerations Neck: Supple, No JVD, Negative Carotid Bruits Lungs: Air entry diminished in bilateral lung bases. No crepitation/rhonchi Cardiovascular: irregular rhythm, PVCs, normal S1 and S2. No murmurs Abdomen: Bowel Sounds Present, Soft, Non Tender, Non-Distended : No renal angle tenderness. No suprapubic tenderness. Extremities: Bilateral lower extremity lymphedema, pitting and nonpitting edema. Skin: Lower legs, bilateral lymphedema Musculoskeletal: No Tenderness to Palpation of Joints or Extremities Neurological: Cranial nerves II-XII grossly intact, Deep Tendon Reflexes 2+/4 and Symmetrical, Neuro grossly intact Psych/Mental Status: Normal affect. Assessment & Plan Assessment/Plan (1) CHF exacerbation: (2) Atrial fibrillation and flutter: PLAN: This patient was seen in conjunction with RHEOSTAT ASSEMBLER, Mikki. I have independently interviewed and examined the patient and reviewed pertinent history, examination findings, laboratory and plan of management. I have reviewed the note and agree with the documented findings with the few additional points. In brief, patient is admitted for acute on chronic CHF exacerbation with diastolic heart failure/HFpEF: Patient is admitted in PCU. Serial troponin enzymes is elevated but trending down suggestive of type II ischemia secondary to CHF. BNP 330 but may be falsely low because of morbid obesity. Echo on 12/2020 shows EF 55%, RVSP 35 mmHg consistent with moderate pulmonary hypertension. Patient seen by bridge repairer and oral amiodarone converted to IV amiodarone drip. Later on IV amiodarone was discontinued after patient's request and metoprolol dose increased to 150 mg twice daily, Imdur increased 02/12: Cardiology follow-up reviewed. IV amiodarone discontinued on patient's request. Metoprolol dose increased to 150 mg twice daily. Amiodarone 200 mg oral 4 times daily. There was increase in creatinine, BABAK prerenal from diuresis on baseline CKD stage III from pulmonary hypertension/right ventricular failure. Lasix IV was changed to p.o. and is being managed by barrel endshaker adjuster. After heart rate was not controlled, patient was started on Cardizem which she had in the past. Patient refused for anticoagulation for concern of gastric ulcer/GI bleed patient never had GI work-up and is refused. Patient also has history of coronary artery disease: Aspirin, Plavix, metoprolol, losartan. COPD: Bronchodilator, prednisone, fluticasone. Other comorbidities include hypertension, dyslipidemia, history of CVA and morbid obesity: A1c 6.4 history of prediabetes Rest as mentioned above. I have discussed my assessment with RHEOSTAT ASSEMBLERMikki and orders have been reviewed. Charges/Coding Visit Charges Inpatient E&M: 04668 Subs Hosp L2
[2021-02-14] MEDS: 0.9% Saline Lock 10 ML Syringe IV (20:13)
[2021-02-14] MEDS: Clopidogrel Bisulfate 75 MG Tablet PO (21:21)
[2021-02-14] MEDS: Atorvastatin Calcium 40 MG Tablet PO (21:21)
[2021-02-14] MEDS: Ferrous Sulfate 325 MG Tablet PO (21:21)
[2021-02-14] MEDS: Aspirin 81 MG TAB.CHEW PO (21:22)
[2021-02-14] MEDS: Enoxaparin 40 MG/0.4 ML Syringe SC (21:22)
[2021-02-14] MEDS: Pramipexole Di-HCl 0.5 MG Tablet PO (22:52)
[2021-02-15] VITALS (8 sets, daily range): BP systolic 99–132; BP diastolic 48–73; PULSE 61–113; RESP 16–22; TEMP 36.3–36.6; O2SAT 95–99
[2021-02-15] MEDS: Furosemide 40 MG Tablet PO (05:48)
[2021-02-15] MEDS: Amiodarone 200 MG Tablet PO ×2 (05:48→10:15)
[2021-02-15] MEDS: Ipratropium/Albuterol Sulfate 3 ML AMPUL.NEB INHALATION (07:28)
[2021-02-15 07:43] LABS: Absolute Lymphocyte Count 0.84 X10^3/uL (0.83-4.51); Absolute Neutrophil Count 7.7 X10^3/uL (2.0-7.7); Basophil# 0.04 X10^3/uL; Basophil% 0.4 % (0-1); Eosinophil# 0.27 X10^3/uL; Eosinophils% 2.7 % (0-5); Hematocrit 36.7 % (40-54); Hemoglobin 11.4 g/dL (13.0-16.5); Lymphocyte # 0.84 X10^3/ul (0.83-4.51); Lymphocyte % 8.5 % (19-41); Mean Corp Hgb Conc 31.1 g/dL (32-36); Mean Corpuscular Hgb 28.6 pg (27.0-32.0); Monocyte# 0.91 X10^3/uL; Monocyte% 9.2 % (0-10); NRBC Flagged by Analyzer 0 % (0-5); Neutrophil # 7.73 X10^3/uL (2.7-7.7); Neutrophil % 78.5 % (47-70); Platelet Count 258 K/mm3 (150-450); RBC Distribution Width CV 14.2 % (11.6-14.6); RBC Distribution Width SD 48.1 fl (35.1-43.9); Red Blood Count 3.99 M/mm3 (4.6-6.2); White Blood Count 9.9 K/mm3 (4.4-11.0)
[2021-02-15 07:57] LABS: Anion Gap 3 (5-15); BUN 53 mg/dL (7-18); BUN/Creat Ratio 24.9 RATIO (10-20); Calcium,Total 9.4 mg/dL (8.5-10.1); Chloride 105 mmol/L (98-107); Creatinine, Serum 2.13 mg/dL (0.70-1.30); EST Glomerular Filtration Rate 33 mL/min (>60); Est Glom Filt Rate - Afr Amer 40 mL/min (>60); Estimated Creatinine Clearance 39.13 ml/min; Glucose 120 mg/dL (74-106); Potassium 4.4 mmol/L (3.5-5.1); Sodium Level 138 mmol/L (136-145)
[2021-02-15] MEDS: Calcium (Elemental) 500 MG Tablet PO (08:17)
--- NOTE | 2021-02-15 10:08 | PCM.DC ---
Discharge Instructions Diet Discharge Diet: Low fat / Low cholesterol, 8 Cup Fluid Restriction and 2000 mg Sodium Diet Activity Discharge Activity: Return to Normal Activity Dressing / Incision Call your doctor if you observe: Shortness of breath, Dizziness and Chest pain Follow Up Care Test Results: Test results from this visit will be discussed in further detail at your follow-up appointment, if applicable. Discharge Plan Admission Admit Date/Time: 02/09/21 16:44 Primary Reason for Your Visit: CHF, A.fib Attending Provider: Adry Cunningham Primary Care Provider: Hernan Murray Consulting Providers: Arvind Elizabeth ; Gelacio Houston Instructions Additional Instructions / Restrictions: You will need repeat BMP within one week by primary care provider. Discharge Orders/Prescriptions Prescriptions: New furosemide 40 mg Tablet 40 mg PO TID Qty: 0 RF: 0 amiodarone 200 mg Tablet 200 mg PO BIDCM Qty: 60 RF: 0 diltiazem HCl 240 mg Capsule,Extended Release 24hr 240 mg PO DAILY Qty: 30 RF: 0 metoprolol tartrate 50 mg Tablet 150 mg PO BID Qty: 90 RF: 0 Continued ropinirole 0.5 mg tablet 2 tablet PO QHS PRN (Reason: restless legs) 30 Days Qty: 60 RF: 0 atorvastatin 40 MG tablet 40 mg PO QHS RF: 0 clopidogrel 75 MG tablet 75 mg PO QHS RF: 0 calcium carbonate 500 MG tablet 500 mg PO DAILY@0800 RF: 0 ferrous sulfate 325 MG tablet 325 mg PO QHS RF: 0 aspirin 81 MG tablet,chewable 81 mg PO QHS RF: 0 albuterol sulfate 1 INHALER inhaler 1 - 2 puff inhalation Q4H PRN PRN (Reason: Sob &/Or Wheezing) RF: 0 guaifenesin 1,200 MG tablet 800 mg PO BID PRN (Reason: Congestion) RF: 0 Prednisone 10 MG tablet 10 mg PO DAILY RF: 0 fluticasone propion-salmeterol 1 EACH blister with device 1 puff INHALATION BID RF: 0 losartan 50 MG tablet 50 mg PO BID Qty: 60 RF: 0 isosorbide mononitrate 60 MG tablet 60 mg PO DAILY Qty: 30 RF: 0 potassium chloride 20 MEQ tablet 40 meq PO BIDCM Qty: 120 RF: 0 ipratropium-albuterol 3 ML solution for nebulization 3 ml INHALATION 4X/DAY Qty: 1 RF: 0 Discontinued metoprolol succinate 50 MG tablet extended release 24 hr 50 mg PO QHS RF: 0 furosemide 40 MG tablet 40 mg PO UD Qty: 120 RF: 0 Referrals / Follow Up: Torres Oro MD [STAFF PHYSICIAN] - See Referral Note (For cardiology follow up if you choose) Hernan Murray MD [Primary Care Provider] - In 1 Week Disposition Disposition (needs filled in before D/C Order can be placed): Home, self care
[2021-02-15] MEDS: predniSONE 10 MG Tablet PO (10:14)
[2021-02-15] MEDS: Isosorbide Mononitrate 60 MG Tablet PO (10:14)
[2021-02-15] MEDS: dilTIAZem CD 240 MG Capsule PO (10:15)
--- NOTE | 2021-02-15 10:25 | PCM.DC.SUM ---
Documented by User: Mikki Gardner NP, [employer]IST SUPERVISOR-C 02/15/21 10:32 Providers Date of Admission: 02/09/21 Date of Discharge: 02/15/21 Primary Care Physician: Dr. Hernan Murray MD Consultations 02/09/21 17:48 Consult: Cardiology Routine Consulting Provider: Arvind Elizabeth Reason for Consult: Recent CHF Exac, NSTEMI, declined cath, represents dyspsea/trop 0.103 EMERGENT Consult: No MD Notified: Yes Date Notified:: 02/09/21 Time Notified: 16:43 Method of Notification: cortext 02/12/21 07:50 Consult: Nephrology Routine Consulting Provider: Gelacio Houston Reason for Consult: BABAK on CKD. On diuretic for CHF EMERGENT Consult: No MD Notified: Yes Date Notified:: 02/12/21 Time Notified: 07:50 Method of Notification: Answering Service Reason For Visit: CHF EXACERBATION, DYSPNEA Diagnosis Discharge Diagnosis (1) CHF exacerbation: Status: Chronic Code(s): I50.9 - Heart failure, unspecified (2) Atrial fibrillation and flutter: Status: Acute Code(s): I48.91 - Unspecified atrial fibrillation; I48.92 - Unspecified atrial flutter Medications at Discharge Home Medications albuterol sulfate 1 - 2 puff INHALATION Q4H PRN PRN 04/09/18 aspirin 81 mg PO QHS 04/09/18 atorvastatin 40 mg PO QHS 04/09/18 calcium carbonate 500 mg PO DAILY@0800 04/09/18 clopidogrel 75 mg PO QHS 04/09/18 ferrous sulfate 325 mg PO QHS 04/09/18 guaifenesin 800 mg PO BID PRN 09/23/18 ropinirole 0.5 mg tablet 2 tablet PO QHS PRN 30 Days #60 tab 02/13/19 Prednisone 10 mg PO DAILY 12/18/20 fluticasone propion-salmeterol 1 puff INHALATION BID 12/18/20 ipratropium-albuterol 3 ml INHALATION 4X/DAY #1 12/20/20 isosorbide mononitrate 60 mg PO DAILY #30 tablet 12/20/20 losartan 50 mg PO BID #60 tablet 12/20/20 potassium chloride 40 meq PO BIDCM #120 tablet 12/20/20 amiodarone 200 mg PO BIDCM #60 tab 02/15/21 diltiazem HCl 240 mg PO DAILY #30 cap 02/15/21 furosemide 40 mg PO TID #0 tab 02/15/21 metoprolol tartrate 150 mg PO BID #90 tab 02/15/21 Hospital Course Operations None Procedures 2-D Echocardiogram Summary of Care Provided Minutes Spent on Discharge: 35 Hospital Course: Patient is a 65 year old male admitted 02/09/2021 due to shortness of breath. 1. Acute on chronic hypoxic respiratory failure secondary to acute on chronic heart failure with preserved ejection fraction-BNP 330 on admission. Chest x-ray consistent with congestion. Echocardiogram demonstrates an EF of 55%, RVSP estimated to be 50 mmHg. Evidence of diastolic dysfunction. IV Lasix during admission. Patient wears chronic supplemental oxygen related to chronic CHF, COPD as well as untreated ANIBAL. On baseline home O2 requirements. Discharged on Lasix 40 mg 3 times daily. Patient is noncompliant with lower extremity elevation, Mp wraps and does not wish to follow-up with cardiology at discharge. 2. Paroxysmal atrial fibrillation/atrial flutter with RVR-history of JODY/cardioversion August 2017. Cardiology consulted during admission. Patient refuses anticoagulation due to history of gastric ulcer/GI bleed. Currently on oral amiodarone, metoprolol and Cardizem. Rate stable. As noted above, patient does not wish to follow-up with cardiology. Follow-up with PCP in 1 week. 3. NSTEMI/Chronic elevated troponin- Follows with Dr. Oro. Cardiology consulted as noted above. Patient has refused cardiac catheterization in the past. Again refusing cardiac cath during admission. Suspect demand ischemia/type II event secondary to A. fib with RVR/CHF. Continue medical management including aspirin, statin, Plavix, nitrates, beta-krish. 4. Chronic iron deficiency anemia-continue iron supplementation. GI workup has been recommended in the past for anemia and patient has refused. 5. Chronic COPD with chronic hypoxic respiratory failure-no acute exacerbation. Patient follows with Dr. Tello as outpatient. Continue albuterol and DuoNeb aerosols. 6. Obstructive sleep apnea-patient recommended BIPAP following prior PSG, refusing treatment. 7. BABAK on Chronic kidney disease stage IIIa-Nephrology consulted during admission. BABAK due to IV lasix which was discontinued. Recommend repeat BMP in 1 week by PCP. 8. History of CVA-No focal deficits. Continue aspirin, Plavix, statin. 9. Hyperlipidemia-continue statin. 10. Hypertension-stable, continue current regimen including isosorbide, losartan, metoprolol. 11. Morbid obesity-BMI 51.0. Encouraged lifestyle and diet modifications. Nutrition consult. Physical Exam Const alert, oriented x3 and no apparent distress Orientation / Consciousness: awake, oriented to person, oriented to place and oriented to time HEENT normocephalic and moist oral mucous membranes Eyes PERRL, EOMs intact bilaterally and conjunctivae normal Neck no lymphadenopathy Resp clear to auscultation bilaterally Auscultation: diminished lung sounds Cardio Rhythm: other Other Details: Atrial fibrillation, rate improved Peripheral Pulses: pulses 2+ throughout GI normal to inspection, nondistended, normoactive bowel sounds, non-tender and non-distended Extremity normal to inspection General Extremity: edema bilateral lower extremity Details: severe (Lymphedema) Skin no rashes or lesions noted Lesions: no lesions Rashes: no rashes Trauma: no lacerations or abrasions Neuro CN's II-XII intact bilaterally, no focal motor deficits, no sensory deficits noted and deep tendon reflexes 2+ bilaterally Psych Appearance: unkempt Mood & Affect: anxious and irritable Patient seen and examined prior to discharge. Physical assessment as noted above. Patient is stable for discharge with follow up recommendations as noted above. This patient was seen by LINWOOD Patel under the supervision of Dr. Cunningham. ABG / Lab / Microbiology Data Result Diagrams: 02/15/21 07:10 02/15/21 07:10 Laboratory: Laboratory Results - last 24 hr 02/15/21 02/15/21 07:10 07:10 WBC 9.9 RBC 3.99 L Hgb 11.4 L Hct 36.7 L MCV 92.0 MCH 28.6 MCHC 31.1 L RDW Std Deviation 48.1 H RDW Coeff of Bunny 14.2 Plt Count 258 MPV 10.0 Immature Gran % (Auto) 0.700 Neut % (Auto) 78.5 H Lymph % (Auto) 8.5 L [place] % (Auto) 9.2 Eos % (Auto) 2.7 Baso % (Auto) 0.4 Absolute Neuts (auto) 7.7 Absolute Lymphs (auto) 0.84 Nucleated RBC % 0 Sodium 138 Potassium 4.4 Chloride 105 Carbon Dioxide 30.0 Anion Gap 3 L BUN 53 H Creatinine 2.13 H Estim Creat Clear Calc 39.13 Est GFR (MDRD) Af Amer 40 L Est GFR (MDRD) Non-Af 33 L BUN/Creatinine Ratio 24.9 H Glucose 120 H Calcium 9.4 Microbiology: Microbiology 02/09/21 15:04 Blood Culture - Final Blood Culture (Wb) - Right Forearm No growth in 5 days. 02/09/21 15:07 Blood Culture - Final Blood Culture (Wb) - Anticubital Right No growth in 5 days. Microbiology 02/09/21 15:04 Blood Culture (Wb) - Right Forearm Blood Culture - Final No growth in 5 days. 02/09/21 15:07 Blood Culture (Wb) - Anticubital Right Blood Culture - Final No growth in 5 days. 02/09/21 17:17 Urine, Clean Catch Urine Culture - Final Mixed Gram Pos & Gram Neg Org 02/09/21 15:11 Nasal Secretion SARS-CoV-2 Antigen (Rapid) - Final D/C Instructions Discharge Diet: Low fat / Low cholesterol, 8 Cup Fluid Restriction and 2000 mg Sodium Diet Call your doctor if you observe: Shortness of breath, Dizziness and Chest pain Meaningful Use Info Meaningful Use Diagnoses (Choose all that apply): CHF CHF MP/ARB ordered at discharge?: Yes Documented LVEF (%): 55 Discharge Plan Admission Admit Date/Time: 02/09/21 16:44 Primary Reason for Your Visit: CHF, A.fib Attending Provider: Adry Cunningham Primary Care Provider: Hernan Murray Consulting Providers: Arvind Elizabeth ; Gelacio Houston Instructions Additional Instructions / Restrictions: You will need repeat BMP within one week by primary care provider. Discharge Orders/Prescriptions Prescriptions: New furosemide 40 mg Tablet 40 mg PO TID Qty: 0 RF: 0 amiodarone 200 mg Tablet 200 mg PO BIDCM Qty: 60 RF: 0 diltiazem HCl 240 mg Capsule,Extended Release 24hr 240 mg PO DAILY Qty: 30 RF: 0 metoprolol tartrate 50 mg Tablet 150 mg PO BID Qty: 90 RF: 0 Continued ropinirole 0.5 mg tablet 2 tablet PO QHS PRN (Reason: restless legs) 30 Days Qty: 60 RF: 0 atorvastatin 40 MG tablet 40 mg PO QHS RF: 0 clopidogrel 75 MG tablet 75 mg PO QHS RF: 0 calcium carbonate 500 MG tablet 500 mg PO DAILY@0800 RF: 0 ferrous sulfate 325 MG tablet 325 mg PO QHS RF: 0 aspirin 81 MG tablet,chewable 81 mg PO QHS RF: 0 albuterol sulfate 1 INHALER inhaler 1 - 2 puff inhalation Q4H PRN PRN (Reason: Sob &/Or Wheezing) RF: 0 guaifenesin 1,200 MG tablet 800 mg PO BID PRN (Reason: Congestion) RF: 0 Prednisone 10 MG tablet 10 mg PO DAILY RF: 0 fluticasone propion-salmeterol 1 EACH blister with device 1 puff INHALATION BID RF: 0 losartan 50 MG tablet 50 mg PO BID Qty: 60 RF: 0 isosorbide mononitrate 60 MG tablet 60 mg PO DAILY Qty: 30 RF: 0 potassium chloride 20 MEQ tablet 40 meq PO BIDCM Qty: 120 RF: 0 ipratropium-albuterol 3 ML solution for nebulization 3 ml INHALATION 4X/DAY Qty: 1 RF: 0 Discontinued metoprolol succinate 50 MG tablet extended release 24 hr 50 mg PO QHS RF: 0 furosemide 40 MG tablet 40 mg PO UD Qty: 120 RF: 0 Referrals / Follow Up: Torres Oro MD [STAFF PHYSICIAN] - See Referral Note (For cardiology follow up if you choose) Hernan Murray MD [Primary Care Provider] - In 1 Week Disposition Disposition (needs filled in before D/C Order can be placed): Home, self care Documented by User: Dr. Adry Cunningham MD 02/15/21 14:38 Providers Date of Admission: 02/09/21 Reason For Visit: CHF EXACERBATION, DYSPNEA Medications at Discharge Home Medications albuterol sulfate 1 - 2 puff INHALATION Q4H PRN PRN 04/09/18 aspirin 81 mg PO QHS 04/09/18 atorvastatin 40 mg PO QHS 04/09/18 calcium carbonate 500 mg PO DAILY@0800 04/09/18 clopidogrel 75 mg PO QHS 04/09/18 ferrous sulfate 325 mg PO QHS 04/09/18 guaifenesin 800 mg PO BID PRN 09/23/18 ropinirole 0.5 mg tablet 2 tablet PO QHS PRN 30 Days #60 tab 02/13/19 Prednisone 10 mg PO DAILY 12/18/20 fluticasone propion-salmeterol 1 puff INHALATION BID 12/18/20 ipratropium-albuterol 3 ml INHALATION 4X/DAY #1 12/20/20 isosorbide mononitrate 60 mg PO DAILY #30 tablet 12/20/20 losartan 50 mg PO BID #60 tablet 12/20/20 potassium chloride 40 meq PO BIDCM #120 tablet 12/20/20 amiodarone 200 mg PO BIDCM #60 tab 02/15/21 diltiazem HCl 240 mg PO DAILY #30 cap 02/15/21 furosemide 40 mg PO TID #0 tab 02/15/21 metoprolol tartrate 150 mg PO BID #90 tab 02/15/21 ABG / Lab / Microbiology Data Result Diagrams: 02/15/21 07:10 02/15/21 07:10 Discharge Plan Admission Admit Date/Time: 02/09/21 16:44 Primary Reason for Your Visit: CHF, A.fib Attending Provider: Adry Cunningham Primary Care Provider: Hernan Murray Consulting Providers: Arvind Elizabeth ; Gelacio Houston Instructions Additional Instructions / Restrictions: You will need repeat BMP within one week by primary care provider. Discharge Orders/Prescriptions Prescriptions: New furosemide 40 mg Tablet 40 mg PO TID Qty: 0 RF: 0 amiodarone 200 mg Tablet 200 mg PO BIDCM Qty: 60 RF: 0 diltiazem HCl 240 mg Capsule,Extended Release 24hr 240 mg PO DAILY Qty: 30 RF: 0 metoprolol tartrate 50 mg Tablet 150 mg PO BID Qty: 90 RF: 0 Continued ropinirole 0.5 mg tablet 2 tablet PO QHS PRN (Reason: restless legs) 30 Days Qty: 60 RF: 0 atorvastatin 40 MG tablet 40 mg PO QHS RF: 0 clopidogrel 75 MG tablet 75 mg PO QHS RF: 0 calcium carbonate 500 MG tablet 500 mg PO DAILY@0800 RF: 0 ferrous sulfate 325 MG tablet 325 mg PO QHS RF: 0 aspirin 81 MG tablet,chewable 81 mg PO QHS RF: 0 albuterol sulfate 1 INHALER inhaler 1 - 2 puff inhalation Q4H PRN PRN (Reason: Sob &/Or Wheezing) RF: 0 guaifenesin 1,200 MG tablet 800 mg PO BID PRN (Reason: Congestion) RF: 0 Prednisone 10 MG tablet 10 mg PO DAILY RF: 0 fluticasone propion-salmeterol 1 EACH blister with device 1 puff INHALATION BID RF: 0 losartan 50 MG tablet 50 mg PO BID Qty: 60 RF: 0 isosorbide mononitrate 60 MG tablet 60 mg PO DAILY Qty: 30 RF: 0 potassium chloride 20 MEQ tablet 40 meq PO BIDCM Qty: 120 RF: 0 ipratropium-albuterol 3 ML solution for nebulization 3 ml INHALATION 4X/DAY Qty: 1 RF: 0 Discontinued metoprolol succinate 50 MG tablet extended release 24 hr 50 mg PO QHS RF: 0 furosemide 40 MG tablet 40 mg PO UD Qty: 120 RF: 0 Referrals / Follow Up: Torres Oro MD [STAFF PHYSICIAN] - See Referral Note (For cardiology follow up if you choose) Hernan Murray MD [Primary Care Provider] - In 1 Week Disposition Disposition (needs filled in before D/C Order can be placed): Home, self care
--- NOTE | 2021-02-15 10:43 | PCM.PN.CARD ---
Subjective Subjective The patient appears to be awake and alert. He appears somewhat more calm this morning. He denies any acute chest discomfort or acute respiratory related issues. Objective Data Vital Signs: Vital Signs Temp Pulse Resp BP Pulse Ox 97.4 F L 112 H 16 99/62 99 02/15/21 10:10 02/15/21 10:10 02/15/21 10:10 02/15/21 10:10 02/15/21 10:10 Oxygen Flow Rate (L/min) 5 Oxygen Delivery Method Nasal Cannula Weight: 397 lb 7.895 oz Body Mass Index (BMI) 51.3 Intake & Output: Intake and Output for Last 24 Hours 02/13/21 02/14/21 02/15/21 23:59 23:59 23:59 Intake Total 960 / 1310 1470 / 1470 140 / 140 Output Total 2550 / 3100 2650 / 2650 1150 / 1150 Balance -1590 / -1790 -1180 / -1180 -1010 / -1010 Lab / Micro Data Result Diagrams: 02/15/21 07:10 02/15/21 07:10 Labs: Laboratory Results - last 24 hr 02/15/21 02/15/21 07:10 07:10 WBC 9.9 RBC 3.99 L Hgb 11.4 L Hct 36.7 L MCV 92.0 MCH 28.6 MCHC 31.1 L RDW Std Deviation 48.1 H RDW Coeff of Bunny 14.2 Plt Count 258 MPV 10.0 Immature Gran % (Auto) 0.700 Neut % (Auto) 78.5 H Lymph % (Auto) 8.5 L [place] % (Auto) 9.2 Eos % (Auto) 2.7 Baso % (Auto) 0.4 Absolute Neuts (auto) 7.7 Absolute Lymphs (auto) 0.84 Nucleated RBC % 0 Sodium 138 Potassium 4.4 Chloride 105 Carbon Dioxide 30.0 Anion Gap 3 L BUN 53 H Creatinine 2.13 H Estim Creat Clear Calc 39.13 Est GFR (MDRD) Af Amer 40 L Est GFR (MDRD) Non-Af 33 L BUN/Creatinine Ratio 24.9 H Glucose 120 H Calcium 9.4 Micro: Microbiology 02/09/21 15:04 Blood Culture (Wb) - Right Forearm Blood Culture - Final No growth in 5 days. 02/09/21 15:07 Blood Culture (Wb) - Anticubital Right Blood Culture - Final No growth in 5 days. 02/09/21 17:17 Urine, Clean Catch Urine Culture - Final Mixed Gram Pos & Gram Neg Org 02/09/21 15:11 Nasal Secretion SARS-CoV-2 Antigen (Rapid) - Final Cardiology Labs/Tests 02/15/21 07:10: WBC 9.9, RBC 3.99 L, Hgb 11.4 L, Hct 36.7 L, MCV 92.0, MCH 28.6, MCHC 31.1 L, Plt Count 258, MPV 10.0, Immature Gran % (Auto) 0.700, Neut % (Auto) 78.5 H, Lymph % (Auto) 8.5 L, [place] % (Auto) 9.2, Eos % (Auto) 2.7, Baso % (Auto) 0.4, Absolute Neuts (auto) 7.7, Nucleated RBC % 0 02/15/21 07:10: Sodium 138, Potassium 4.4, Chloride 105, Carbon Dioxide 30.0, Anion Gap 3 L, BUN 53 H, Creatinine 2.13 H, Est GFR (MDRD) Af Amer 40 L, Est GFR (MDRD) Non-Af 33 L, BUN/Creatinine Ratio 24.9 H, Glucose 120 H, Calcium 9.4 Rhythm: Atrial flutter with variable AV conduction Physical Exam Const alert, oriented x3 and healthy appearing Orientation / Consciousness: awake HEENT normocephalic, head/scalp atraumatic and hearing grossly normal bilaterally Eyes PERRL, EOMs intact bilaterally and conjunctivae normal Neck full ROM, supple, no JVD and no carotid bruits Chest inspection of chest normal Resp normal respiratory effort and clear to auscultation bilaterally Cardio S1 normal heart sound and S2 normal heart sound Palpation: normal PMI Rate: other Other Details: Variable Rhythm: abnormal rhythm irregularly irregular Heart Sounds: S1 normal and S2 normal Peripheral Pulses: pulses 2+ throughout GI normal to inspection, nondistended, normoactive bowel sounds Extremity normal to inspection General Extremity: edema bilateral lower extremity Details: severe Psych mental status grossly normal Assessment & Plan Assessment/Plan (1) Atrial fibrillation and flutter: PLAN: The patient was evaluated Dr. Oro. Status post evaluation there was concern that the underlying cardiac rhythm was concerning for atrial flutter. The patient is continuing rate control therapy. He is continuing his beta-krish therapy. He has restarted his diltiazem therapy. He continues with an oral amiodarone taper. He has heart rate, overall, does appear to be somewhat improved where he is demonstrating on telemetry monitoring ventricular rates in the 60s, 70s, 80s, 90s, as well as [id number], as opposed to continually running 110+. He has also been advised of concerns with respect to advancing his rate limiting medication doses even higher based upon the concern of potential future bradycardia. Thus he has been counseled on attempting to balance his medications and his heart rate to avoid significant bradycardia and significant tachycardia. The patient has stated in the past that he does not want anticoagulant therapy especially with warfarin/Coumadin or other agents such as Xarelto or similar to Xarelto based upon a history of peptic ulcer disease and upper gastrointestinal bleeding. Thus it has been explained to the patient that without anticoagulant therapy, barring an urgent/emergent event, there is no immediate plans for any attempt at synchronized biphasic DC cardioversion to regain sinus rhythm. A lengthy discussion was held with the patient with respect to his diagnosis, attempts at rate control therapy, concerns with anticoagulant therapy, and that without anticoagulant therapy he is not an ideal candidate, barring an urgent/emergent event, for an attempt at synchronized biphasic DC cardioversion based upon the potential risks of thromboembolic related issues, CVA, etc. The patient has been offered on multiple occasions transfer to a tertiary care center for additional cardiovascular opinion from electrophysiology. However the patient declines to allow himself to be transferred to another institution. Thus, at the present time, the patient will continue his current medical therapy as it does appear he has had some improvement in his heart rate. Depending upon his heart rate response over time his medications may need to be adjusted. (2) NSTEMI (non-ST elevated myocardial infarction): PLAN: The patient has abnormal cardiac enzymes. The consensus is a type II event secondary to his underlying atrial dysrhythmia superimposed upon his other cardiovascular concerns. He will continue medical management as best as possible. (3) CAD (coronary artery disease): QUALIFIERS: Coronary Disease-Associated Artery/Lesion type: [place] artery [place] vs. transplanted heart: [place] heart Associated angina: without angina Qualified Code(s): I25.10 - Atherosclerotic heart disease of [place] coronary artery without angina pectoris PLAN: The patient has been evaluated in the past for concerns of CAD. He has declined further invasive evaluation in the past. If the patient's stance changes with respect to diagnostic cardiac catheterization then based upon the patient's multiple comorbidities and morbid obesity the patient should be considered for transfer to a tertiary care center for additional evaluation and care. (4) Cardiomyopathy: QUALIFIERS: Cardiomyopathy type: unspecified Qualified Code(s): I42.9 - Cardiomyopathy, unspecified PLAN: The patient has a history of a cardiomyopathy . Based upon his echocardiogram from 12-18-2020 his overall LV systolic function/LVEF was preserved. He does need to continue medical management. (5) CHF (congestive heart failure): QUALIFIERS: Heart failure type: right-sided PLAN: The patient has a history of CHF. Based upon his most recent echocardiogram and this would be considered diastolic mediated, however, there is also concern that the patient has secondary to his underlying pulmonary disease process pulmonary hypertension with cor pulmonale and what may be right heart failure. The patient will need to continue medical management as best as tolerated. (6) HLD (hyperlipidemia): QUALIFIERS: Hyperlipidemia type: mixed hyperlipidemia Qualified Code(s): E78.2 - Mixed hyperlipidemia PLAN: The patient will continue risk factor evaluation care as tolerated. (7) Hypertension: QUALIFIERS: Hypertension type: essential hypertension Qualified Code(s): I10 - Essential (primary) hypertension PLAN: The patient's blood pressure needs to be monitored as it may impact his medical management. (8) Pulmonary hypertension: PLAN: Based upon the patient's previous transthoracic echocardiogram his estimated RV systolic pressure was approximately 50 mmHg compatible with pulmonary hypertension. He will need to continue medical therapy and evaluation care of his ANIBAL, etc. (9) Cor pulmonale: PLAN: Again there is concern based upon the patient's underlying pulmonary disease process that he has pulmonary hypertension with cor pulmonale and right heart failure. He will need to continue cardiopulmonary support as best as possible. (10) ANIBAL (obstructive sleep apnea): PLAN: The patient should continue evaluation care per his other physicians. (11) Morbid obesity with BMI of 45.0-49.9, adult: PLAN: Unfortunately the patient remains morbidly obese. This does create issues with respect to additional diagnostic studies, etc., from a technical standpoint. Addt'l Comments Of note: The patient states he will be following with his PCP. He states he does not plan to continue with outpatient cardiovascular follow-up. The patient's case has been discussed at length with the patient as well as with Mikki Gardner CNP, of the [facility] staff.
--- NOTE | 2021-02-15 12:32 | CASEMGMT ---
Pt is up for discharge and is requesting an e-tank thru [facility] for discharge. Call to [facility] answering service and updated on pt request for e-tank. Per answering service, seasonal delivery driver will call PCU and notify when tank to be delivered. Melody FISHMAN updated, voices understanding. Pt declines need for any further resources at this time and is anxious to discharge. Lexa FISHMAN CM
--- NOTE | 2021-02-15 12:57 | NURSING ---
[facility] called stated they will be bringing oxygen tank in 20 min
--- NOTE | 2021-02-17 11:34 | CASEMGMT ---
RN NANCIE Discharge Follow Up Phone Call: ASH: Leonila Strata:3 Call Date: 02.17.21 Discharge Date: 02.15.21 Time of Call:1133 Duration:<1 min Admitting Dx: CHF, dyspnea KYE [place] attempted to complete follow up phone call after recent hospitalization. No answer and voicemail box not set up, unable to leave a message.
== END 2021-02-15 14:53 | disposition home or self-care (01) | DRG 280 ==
LOC: ED 16:52 → PCU 16:57
PROVIDERS: Internal Medicine Cardiovascular Disease; Nurse Practitioner Family; Physician Assistant; Admitting Provider Family Medicine; Emergency Provider Student in an Organized Health Care Education/Training Program; PCP Family Medicine; Visit Provider Family Medicine
DX: I13.0 Hypertensive heart and chronic kidney disease with heart failure and stage 1 through stage 4 chronic kidney disease, or unspecified chronic kidney disease (principal); I50.33 Acute on chronic diastolic (congestive) heart failure; I21.4 Non-ST elevation (NSTEMI) myocardial infarction; J96.21 Acute and chronic respiratory failure with hypoxia; I48.20 Chronic atrial fibrillation, unspecified; I48.92 Unspecified atrial flutter; N17.9 Acute kidney failure, unspecified; Z68.43 Body mass index [BMI] 50.0-59.9, adult; E78.2 Mixed hyperlipidemia; R73.9 Hyperglycemia, unspecified; E66.01 Morbid (severe) obesity due to excess calories; Z79.52 Long term (current) use of systemic steroids; J44.9 Chronic obstructive pulmonary disease, unspecified; Z66 Do not resuscitate; N18.31 Chronic kidney disease, stage 3a; I87.2 Venous insufficiency (chronic) (peripheral); I48.0 Paroxysmal atrial fibrillation; F41.9 Anxiety disorder, unspecified; Z91.19 Patient's noncompliance with other medical treatment and regimen; I89.0 Lymphedema, not elsewhere classified; D50.9 Iron deficiency anemia, unspecified; G47.33 Obstructive sleep apnea (adult) (pediatric); I27.29 Other secondary pulmonary hypertension; I25.10 Atherosclerotic heart disease of native coronary artery without angina pectoris; N40.0 Benign prostatic hyperplasia without lower urinary tract symptoms; K21.9 Gastro-esophageal reflux disease without esophagitis; Z86.73 Personal history of transient ischemic attack (TIA), and cerebral infarction without residual deficits; I42.9 Cardiomyopathy, unspecified; I25.2 Old myocardial infarction; I44.7 Left bundle-branch block, unspecified; Z87.11 Personal history of peptic ulcer disease; Z80.1 Family history of malignant neoplasm of trachea, bronchus and lung; Z85.118 Personal history of other malignant neoplasm of bronchus and lung; Z87.891 Personal history of nicotine dependence
CPT/HCPCS: 36415; 71045; 80048; 80053; 80061; 81001; 83036; 83605; 83735; 83880; 84443; 84484; 85025; 85610; 85730; 87040; 87086; 87088; 87426; 93005; 94640; 94762; 97802; 99251; 99285; A4216; G0463; J1940

== ENCOUNTER 2021-03-17 15:51 | Emergency (ER) | payer MEDICARE, SELFPAY ==
[2021-02-09 18:14] VITALS: BMI 51.3
[2021-03-17 15:52] VITALS: BP 132/116; PULSE 110; RESP 18; TEMP 37; O2SAT 96; BMI 52.6
--- NOTE | 2021-03-17 17:08 | ED.RN ---
CALLED PT ARCHANA PHELAN TO DIRECTOR OF STRATEGIC [employer]IANCES PT. SHE STATES SHE IS NOT PICKING HIM UP. UNABLE TO CALL [facility] BECAUSE PT IS CHRONICALLY ON 4L OXYGEN AND DOES NOT HAVE PORTABLE OXYGEN WITH HIM, AND NO ONE IS ABLE TO PICKUP. [facility] CALLED TO TRANSPORT PT
--- NOTE | 2021-03-17 17:21 | NURSING ---
CALLED [facility], ETA IS 25 PHONE
[2021-03-17 17:23] VITALS: PULSE 110; RESP 20; O2SAT 95
--- NOTE | 2021-03-17 23:01 | EX.ED.DYSGE1 ---
HPI History of Present Illness Chief Complaint: Fall Informant: patient Onset/Context/Timing Onset: Today Current Severity: Mild Narrative Narrative: Patient presents via EMS after a fall. Patient reportedly left his home and tripped over his oxygen tubing. He states that his only injury is irritation of the bedsores that he has from the last time he was admitted to the hospital. He denies striking his head. No loss of consciousness. Patient does report his right leg has been seeping. [facility] Medical History (Updated 03/17/21 @ 23:[address] Kamila Hermosillo MD) Atrial flutter BPH (benign prostatic hypertrophy) CAD (coronary artery disease) Cardiomyopathy Chronic atrial fibrillation CKD (chronic kidney disease), stage II COPD (chronic obstructive pulmonary disease) Cor pulmonale CVA (cerebral vascular accident) (~2012) GERD (gastroesophageal reflux disease) History of cardioversion (~09/07/17) History of CVA (cerebrovascular accident) HLD (hyperlipidemia) Hypertension Left bundle branch block Morbid obesity with BMI of 45.0-49.9, adult NSTEMI (non-ST elevated myocardial infarction) ANIBAL (obstructive sleep apnea) Pulmonary hypertension Stasis dermatitis of both legs Vesico-colic fistula Home Medications albuterol sulfate 1 - 2 puff INHALATION Q4H PRN PRN 04/09/18 [History Last Taken 09/24/18 15:00] aspirin 81 mg PO QHS 04/09/18 [History Last Taken 09/24/18 02:30] atorvastatin 40 mg PO QHS 04/09/18 [History Last Taken 09/24/18 02:30] calcium carbonate 500 mg PO DAILY@0800 04/09/18 [History Last Taken 09/24/18 11:00] clopidogrel 75 mg PO QHS 04/09/18 [History Last Taken 09/24/18 02:30] ferrous sulfate 325 mg PO QHS 04/09/18 [History Last Taken 09/24/18 11:00] guaifenesin 800 mg PO BID PRN 09/23/18 [History Last Taken 09/24/18 11:00] ropinirole 0.5 mg tablet 2 tablet PO QHS PRN 30 Days #60 tab 02/13/19 [History Last Taken Unknown] Prednisone 10 mg PO DAILY 12/18/20 [History Last Taken Unknown] fluticasone propion-salmeterol 1 puff INHALATION BID 12/18/20 [History Last Taken Unknown] ipratropium-albuterol 3 ml INHALATION 4X/DAY #1 12/20/20 [Rx Last Taken Unknown] isosorbide mononitrate 60 mg PO DAILY #30 tablet 12/20/20 [Rx Last Taken Unknown] losartan 50 mg PO BID #60 tablet 12/20/20 [Rx Last Taken Unknown] potassium chloride 40 meq PO BIDCM #120 tablet 12/20/20 [Rx Last Taken Unknown] amiodarone 200 mg PO BIDCM #60 tab 02/15/21 [Rx Last Taken Unknown] diltiazem HCl 240 mg PO DAILY #30 cap 02/15/21 [Rx Last Taken Unknown] furosemide 40 mg PO TID #0 tab 02/15/21 [Rx Last Taken Unknown] metoprolol tartrate 150 mg PO BID #90 tab 02/15/21 [Rx Last Taken Unknown] morphine 15 mg PO 4X/DAY 03/17/21 [History Last Taken Unknown] Allergy/AdvReac Type Severity Reaction Status Date / Time cashew nut Allergy Vomiting Verified 03/17/21 15:54 cortisone [Cortisone] Allergy Itching-ONLY Verified 03/17/21 15:54 TO JOINT INJECTABLE KIND Family History Mother Cancer Lung CA Brother Sudden cardiac age 60 Father Heart disease from cardiomyopathy Surgical History Hx of decompression of ulnar nerve Social History Smoking Status: Former smoker second hand exposure: No alcohol intake: never substance use type: does not use caffeine: Yes (4+/day) what type of physical activity do you participate in: none ROS ROS ED Constitutional Constitutional ED: Denies chills or fever(s) Eyes Eyes: Denies change in vision ENT ENT ED: Denies sore throat Cardiovascular Cardiovascular: Denies chest pain Respiratory/Chest Respiratory/Chest: Denies cough or dyspnea Gastrointestinal Gastrointestinal: Denies abdominal pain, diarrhea, nausea or vomiting Genitourinary Genitourinary ED: Denies dysuria Musculoskeletal Musculoskeletal: Reports arthralgias; Denies back pain Integumentary Denies rash Neurologic Neurologic: Denies headache(s) or weakness Psychiatric Psychiatric: Denies anxiety or depression Endocrine Endocrinology: Denies polydipsia or polyuria Allergic/Immunologic Allergic/Immunologic ED: Denies urticaria EXAM Physical Exam Const Vital Signs: 03/17/21 15:52 03/17/21 15:54 03/17/21 17:23 Temperature 98.6 F Temperature Source Oral Pulse Rate 110 H 110 H Respiratory Rate 18 20 H Respiratory Effort Normal Non-Labored Respiratory Depth Normal Respiratory Pattern Normal Blood Pressure 132/116 H Blood Pressure Mean 121 Pulse Ox 96 95 Oxygen Delivery Method Nasal Cannula Oxygen Flow Rate (L/min) 4 Positive well nourished, well developed and obese General Appearance ED: well developed Nutritional Appearance: obese HEENT Reports normocephalic and head/scalp atraumatic Eyes PERRL and EOMs intact bilaterally Neck supple Chest Wall inspection of chest normal and palpation of chest normal Resp normal respiratory effort and clear to auscultation bilaterally Cardio regular rate and regular rhythm GI normal to inspection, nondistended, normoactive bowel sounds Palpation: soft Extremity Extremity Narrative: Chronic venous skin changes to the bilateral lower extremities. Feet are cleansed bilaterally with no open sores noted. Neuro oriented x3 Neuro Narrative: No focal neurologic deficits. Sensorium / Orientation: alert Psych mental status grossly normal MDM MDM MDM Narrative Medical decision making narrative: Legs are cleansed and Mp wrap is applied. Patient adamantly refuses assistance such as placement to help care for himself. At this time patient is discharged to home. He denies focal ankle pain from his fall and does not feel imaging is needed. Treatment and Re-Evaluation Comments:: On repeat examination patient resting comfortably. He again voices that he wishes to just go home. He declines any further work-up. Discharge Plan Triage Chief Complaint: Fall ED Provider: Kamila Hermosillo Dx/Rx/DC Orders Clinical Impression: Fall, Lymphedema Instructions: ED Mechanical Fall Prescriptions: No Action ropinirole 0.5 mg tablet 2 tablet PO QHS PRN (Reason: restless legs) 30 Days Qty: 60 RF: 0 atorvastatin 40 MG tablet 40 mg PO QHS RF: 0 clopidogrel 75 MG tablet 75 mg PO QHS RF: 0 calcium carbonate 500 MG tablet 500 mg PO DAILY@0800 RF: 0 ferrous sulfate 325 MG tablet 325 mg PO QHS RF: 0 aspirin 81 MG tablet,chewable 81 mg PO QHS RF: 0 albuterol sulfate 1 INHALER inhaler 1 - 2 puff inhalation Q4H PRN PRN (Reason: Sob &/Or Wheezing) RF: 0 guaifenesin 1,200 MG tablet 800 mg PO BID PRN (Reason: Congestion) RF: 0 Prednisone 10 MG tablet 10 mg PO DAILY RF: 0 fluticasone propion-salmeterol 1 EACH blister with device 1 puff INHALATION BID RF: 0 losartan 50 MG tablet 50 mg PO BID Qty: 60 RF: 0 isosorbide mononitrate 60 MG tablet 60 mg PO DAILY Qty: 30 RF: 0 potassium chloride 20 MEQ tablet 40 meq PO BIDCM Qty: 120 RF: 0 ipratropium-albuterol 3 ML solution for nebulization 3 ml INHALATION 4X/DAY Qty: 1 RF: 0 furosemide 40 mg Tablet 40 mg PO TID Qty: 0 RF: 0 amiodarone 200 mg Tablet 200 mg PO BIDCM Qty: 60 RF: 0 diltiazem HCl 240 mg Capsule,Extended Release 24hr 240 mg PO DAILY Qty: 30 RF: 0 metoprolol tartrate 50 mg Tablet 150 mg PO BID Qty: 90 RF: 0 morphine 15 mg Tablet Extended Release 15 mg PO 4X/DAY RF: 0 Primary Care Provider: Hernan Murray Referrals: Hernan Murray MD [Primary Care Provider] - [facility] appointment Disposition Disposition: Home, Self Care Discharge Date/Time: 03/17/21 17:56
== END 2021-03-17 17:56 | disposition home or self-care (01) ==
PROVIDERS: Emergency Provider Emergency Medicine; PCP Family Medicine
DX: I89.0 Lymphedema, not elsewhere classified (principal); W18.09XA Striking against other object with subsequent fall, initial encounter; Y93.89 Activity, other specified; Y92.89 Other specified places as the place of occurrence of the external cause; Y99.9 Unspecified external cause status; Z68.42 Body mass index [BMI] 45.0-49.9, adult; Z79.51 Long term (current) use of inhaled steroids; Z79.52 Long term (current) use of systemic steroids; Z79.82 Long term (current) use of aspirin; Z86.73 Personal history of transient ischemic attack (TIA), and cerebral infarction without residual deficits; Z87.891 Personal history of nicotine dependence; N40.0 Benign prostatic hyperplasia without lower urinary tract symptoms; N18.2 Chronic kidney disease, stage 2 (mild); I87.2 Venous insufficiency (chronic) (peripheral); I48.20 Chronic atrial fibrillation, unspecified; I27.81 Cor pulmonale (chronic); J44.9 Chronic obstructive pulmonary disease, unspecified; I27.29 Other secondary pulmonary hypertension; I25.10 Atherosclerotic heart disease of native coronary artery without angina pectoris; I25.2 Old myocardial infarction; G47.33 Obstructive sleep apnea (adult) (pediatric); I12.9 Hypertensive chronic kidney disease with stage 1 through stage 4 chronic kidney disease, or unspecified chronic kidney disease; E78.5 Hyperlipidemia, unspecified; E66.01 Morbid (severe) obesity due to excess calories
CPT/HCPCS: 99284